=== PATIENT | female | born 1980 | race Caucasian/White ===

== ENCOUNTER 2024-04-07 15:02 | Emergency (ER) | payer BC, SELFPAY ==
[2024-04-07] VITALS (26 sets, daily range): BP systolic 87–121; BP diastolic 52–94; PULSE 97–115; RESP 16; TEMP 37.6–39.6; O2SAT 92–100
--- NOTE | 2024-04-07 15:33 | W.ED.GENAD ---
Discharge Plan Disposition Patient Disposition: Home Condition: Stable Discharge Details Chief Complaint: Abd Prob Clinical Impression: Pneumonia Primary Care Provider: Radha Acuna ED Provider: Lula Jarvis Home Meds and New Rx's Prescriptions: New doxycycline hyclate 100 mg capsule 100 mg PO BID Qty: 14 0RF No Action tamoxifen 20 mg tablet 20 mg PO DAILY cetirizine [Allergy Relief (cetirizine)] 5 mg tablet 5 mg PO ONCE multivitamin [Daily Multi-Vitamin] Tablet 1 tab PO DAILY L.acidophil-L.plantar-Bifido 7 [up4 Probiotics Adult] 1 cap PO DAILY docosahexaenoic acid [Algal [place]-3 DHA] 1 cap PO DAILY Discharge Instructions Instructions: Pneumonia, Adult ED Additional Instructions: Please continue Tylenol up to 1000 mg every 6 hours for fever relief. Follow-up with your PCP as well but return to the Emergency Department immediately with any worsening symptoms or any other concerns. HPI General Date/Time Provider Initiated Documentation: 04/07/24 15:12. HPI Narrative: The patient is a 43-year-old female with prior history of breast cancer, history of appendectomy, section who comes emergency department for fever, abdominal pain. The patient reports that she has been sick for the past 3 days. Admits to temperature as high as 101 degrees by underarm thermometer. Reports has been taking Tylenol [id number] and it does help with the fever but as soon as Tylenol wears off her fever comes back. Reports that her belly hurts all over without radiation. Denies urinary symptoms with this. Denies any nausea or vomiting. Reports her belly hurts more with a cough which is new for her as well but slight and not productive. Denies any chest pain or shortness of breath however. Denies any known sick contacts. Denies any COVID concerns. Reports that she called her primary care doctor's office today and she was encouraged to go to the emergency department for evaluation. Related Data Home Medications ?Medication ?Instructions ?Recorded ?Confirmed L.acidophil-L.plantar-Bifido 7 1 cap PO DAILY 04/07/24 04/07/24 cetirizine 5 mg tablet (Allergy 5 mg PO ONCE 04/07/24 04/07/24 Relief (cetirizine)) docosahexaenoic acid 1 cap PO DAILY 04/07/24 04/07/24 doxycycline hyclate 100 mg capsule 100 mg PO BID #14 caps 04/07/24 multivitamin (Daily Multi-Vitamin 1 tab PO DAILY 04/07/24 04/07/24 tablet) tamoxifen 20 mg tablet 20 mg PO DAILY 04/07/24 04/07/24 Previous Rx's ?Medication ?Instructions ?Recorded doxycycline hyclate 100 mg capsule 100 mg PO BID #14 caps 04/07/24 Allergies Allergy/AdvReac Type Severity Reaction Status Date / Time acetaminophen (From Vicodin) Allergy Intermediate Other (See Verified 04/07/24 15:07 Comment) hydrocodone (From Vicodin) Allergy Intermediate Other (See Verified 04/07/24 15:07 Comment) NSAIDS (Non-Steroidal Allergy Intermediate Other (See Verified 04/07/24 15:07 Anti-Inflamma Comment) General Stated Complaint: Abd Prob BETH: 3 Review of Systems Narrative: Review of systems are negative except as mentioned. Constitutional Constitutional: Reports fever(s) ENT Ears, Nose, Mouth, and Throat: Denies sore throat Cardiovascular Cardiovascular: Denies chest pain and Denies dyspnea Respiratory Respiratory: Reports cough and Denies dyspnea Gastrointestinal Gastrointestinal: Reports abdominal pain, Denies change in stool character and Denies vomiting Genitourinary Genitourinary: Denies dysuria and Denies urinary urgency Musculoskeletal Comments: No flank pain. Exam Const General: no acute distress Orientation: alert, awake and oriented x3 Resp Auscultation: clear to auscultation bilaterally Cardio Rate: regular rate Rhythm: regular rhythm Other: Equal radial pulses. GI Palpation: soft and nontender Auscultation: normal bowel sounds Other: The patient's abdomen is soft with normal bowel sounds and nontender to palpation throughout without rebound tenderness, guarding or rigidity. No CVA tenderness is noted to palpation bilaterally. Course Vital Signs Vital signs: Vital Signs Temperature 37.6 C 04/07/24 15:03 Pulse 111 H 04/07/24 15:03 Respiratory Rate 16 04/07/24 15:03 Blood Pressure 118/82 04/07/24 15:03 Pulse Oximetry 95 04/07/24 15:03 Temperature 37.6 C 04/07/24 15:03 Temperature Source Oral 04/07/24 15:03 Pulse 111 H 04/07/24 15:03 Respiratory Rate 16 04/07/24 15:03 Blood Pressure 118/82 04/07/24 15:03 Blood Pressure Position Sitting 04/07/24 15:03 Pulse Oximetry 100 04/07/24 15:19 Oxygen Delivery Method Room Air 04/07/24 15:19 Oxygen Flow Rate 0 04/07/24 15:03 Pain Level 5 04/07/24 15:03 Lab/Test Results Lab/Test Results: 04/07/24 15:27 Blood Blood Culture - Pending 04/07/24 15: Blood Blood Culture - Pending Medical Decision Making The patient's physical exam is benign and she arrives hemodynamically stable as well in particular afebrile. Nevertheless given history of fever not resolving after Tylenol, history of breast cancer I ordered a septic workup. The patient's blood work is back and it is unremarkable. She has no white count elevation and lactic acid is within normal limits. Urinalysis is negative for infectious process and she tested negative for COVID, flu and RSV. She remains hemodynamically stable here and afebrile. I updated the patient and her over workup result. I asked her about her cough and states that it is a mild cough that she is not worried about but she is more concerned regarding the abdominal pain. She continues to not have any abdominal tenderness on exam however since I do not have a source on workup I did order imaging study of her abdomen and pelvis at this point. The patient returned from CAT scan the patient reports her pain is coming back now with nausea. She requested pain medication. Reports that she gets hives with NSAIDs so I am not able to order this. She does have known listed allergy for hydrocodone which causes her lips as well. Patient reports as far she is concerned no IV pain medication has caused adverse reaction so I ordered IV morphine and Zofran. Vital signs are checked once more and she has a fever now again. Patient reports that she is not yet due for another Tylenol until 7:00. Because she gets hives with NSAIDs I am not able to order this so instead I have ordered a liter of normal saline. CAT scan is finally resulted and she has changes concerning for left lower lobe pneumonia. Incidentally she was found to have left-sided ovarian cyst. I updated the patient and her workup result. The patient continued to not have any localized abdominal pain complaint. Given the finding of pneumonia I will start her on IV antibiotics now. She is still febrile and again I am unable to give her NSAIDs. She will get another dose of Tylenol when appropriate. She is also found to have an ovarian cyst. She has been symptomatic for the past 3 days now. If her pain persist she may need to get further studies including ultrasound which can be done on an outpatient basis. I had a conversation with the patient regarding disposition at this point. Since we do have a source for her fever I am comfortable with her going home with a prescription for more antibiotics for the next few days. Since she is not yet due for Tylenol she will still be febrile. I talked her about waiting around 740 when her next Tylenol dose is due versus going home now knowing that she still has a fever and she would like to wait until 740. She also request another dose of morphine. These have been ordered for her. A prescription for antibiotics in the meantime will be sent to her preferred pharmacy. She is asked to follow-up with her primary care doctor as well but urged to return to the emergency department with any worsening symptoms or any other concerns. Imaging Data Radiologic Study: Imaging: CT Scan (CT abdomen and pelvs) Radiologist's impression: 1. Left lower lobe infiltrate suspicious for pneumonia. 2. Bilateral ovarian cysts and trace amount of free fluid in the pelvis which is likely physiologic. The largest cyst is on the left ovary measures 3.5 x 4.1 cm. 3. No abdominal or pelvic process. Quality:SDOH Health Related Social Needs: No Data to Display [facility] All Active Problems (Updated 04/07/24 @ 19:07 by Lula Jarvis DO) Pneumonia (Acute) Social History Smoking/Tobacco Use Status: Never Smoking risk assessment performed?: Yes Alcohol Intake: current Alcohol Intake frequency: a few times a month Drug use: Never Substance use type: does not use Do you feel safe at home: Yes Do you feel safe in your relationship?: Yes
[2024-04-07 15:35] LABS: Lactate 1.1 mmol/L (0.6-1.4)
[2024-04-07 15:41] LABS: Abs Immature Grans 0.03 10^3/uL (0.0-0.06); Absolute Eosinophil Count 0.01 10^3/uL (0.0-0.7); Absolute Lymphocyte Count 0.86 10^3/uL (1.2-3.4); Absolute Monocyte Count 0.33 10^3/uL (0.1-0.8); Absolute Neutrophil Count 4.46 10^3/uL (1.2-6.7); Eosinophils % 0.2 %; HCT 41.5 % (36.0-46.0); HGB 13.9 g/dL (11.2-15.7); Immature Grans % 0.5 %; Lymphocytes % 15.1 %; MCH 30.8 pg (27.0-33.0); MCHC 33.5 % (32.0-36.0); MCV 92 fL (80-95); Monocytes % 5.8 %; Neutrophils % 78.4 %; Platelet Count 143 10^3/uL (130-400); RBC 4.52 10^6/uL (3.93-5.22); RDW 12.5 % (11.7-14.6); RDW-SD 42.5 fL; WBC 5.69 10^3/uL (4.4-10.8)
[2024-04-07 15:52] LABS: ALT 15 U/L (14-59); AST 22 U/L (15-37); Albumin 3.5 g/dL (3.4-5.0); Alkaline Phosphatase 53 U/L (46-116); Anion Gap 9.6 mmol/L (3-11); BUN 10 mg/dL (7-18); Bilirubin, Total 0.27 mg/dL (0.2-1.0); CO2 26.4 mmol/L (21.0-32.0); CREATININE 0.9 mg/dL (0.55-1.02); Calcium 8.8 mg/dL (8.5-10.1); Chloride 102 mmol/L (98-107); Estimated GFR 82.37 (mL/min/1.73m2); Glucose 106 mg/dL (74-106); Potassium 3.3 mmol/L (3.5-5.1); Sodium 138 mmol/L (136-145); Total Protein 7.5 g/dL (6.4-8.2)
[2024-04-07 15:53] LABS: HCG Qual (Serum) Negative
[2024-04-07 16:14] LABS: Bilirubin Negative (Negative); Blood Negative (Negative); Clarity Clear (Clear); Glucose Negative (Negative); Ketones 15 mg/dL (Negative); Leukocyte Esterase Negative (Negative); Nitrite Negative (Negative); Specific Gravity 1.015 (1.005-1.025); Urobilinogen 0.2 mg/dL (Up to 0.2)
[2024-04-07 16:36] LABS: COVID-19 PCR Negative (Negative); Influenza A PCR Negative (Negative); Influenza B PCR Negative (Negative); RSV PCR Negative (Negative); Source NASOPHARYNX
--- OUTSIDE RECORDS SUMMARY | 2024-04-07 16:37 | XMS_ITS | Encounter Summary ---
Author Organization [facility] [place] [address] Care Team Providers Care Operations And Maintenance Supervisor Name Role Phone Radha Acuna MD Primary Care Provider [phone]- [phone] Encounter Details Date Type Department Care Team (Late st Contact Info) Description 07/10/2022 Orders Only [place] [phone] Shilpi Gallegos MD [facility] [place] [address] Invasive ductal carcinoma of right breast; Malignant neoplasm of upper-outer quadrant of right breast in female, estrogen receptor positive Social History Tobacco Use Types Packs/Day Years Used Date Smoking Tobacco: Never Smokeless Tobacco: Never Alcohol Use Standard Drinks/Week Comments Yes 0 (1 standard drink = 0.6 oz pur e alcohol) occasiona Sex and Gender Information Value Date Recorded Sex Assigned at Female 02/09/2022 12:21 PM EDT Gender Identity Female 02/09/2022 12:21 PM EDT Sexual Orientation Straight 02/09/2022 12 :21 PM EDT documented as of this encounter Plan of Treatment Upcoming Encounters Date Type Department Care Team (Late st Contact Info) Description 06/30/2024 4:30 PM EDT Office Visit [place] [phone] Shilpi Gallegos MD [facility] DR [place] [address] documented as of this encounter Results * (ABNORMAL) Comprehensive metabolic panel (non-fasting) (07/10/2022 2:50 PM EDT) Glucose 87 65 - 199 mg/dL [facility] Comment:Diabetes: >=200 mg/d L plus symptoms Blood Urea Nitrogen 23(H) 8 - 18 mg/dL [facility] Creatinine 0.79 0.70 - 1.20 mg/dL [facility] Sodium 138 135 - 145 mmol/L [facility] Potassium 3.9 3.5 - 5.0 mmol/L [facility] Comment: Please note: ??Patients with WBC >100,000 may have falsely elevated Potassium levels. ??For accurate Potassium quantification in these patients send serum separator tube (gold top) for subsequent determinations. ??Contact the Clinical Chemistry Laboratory if there are any questions. Chloride 103 98 - 107 mmol/L [facility] Carbon Dioxide 24 22 - 31 mmol/L [facility] Anion Gap 11 5 - 15 mmol/L [facility] Calcium 9.0 8.5 - 10.5 mg/dL [facility] Protein, Total 7.0 6.1 - 8.0 g/dL [facility] Albumin 4.6 3.2 - 5.2 g/dL [facility] Aspartate Aminotransferase 27 0 - 30 unit/L [facility] Alanine Aminotransferase 16 0 - 30 unit/L [facility] Alkaline Phosphatase 61 35 - 105 unit/L [facility] Bilirubin, Total 0.2 0.2 - 1.3 mg/dL [facility] Est Glomerular Filtration Rate 97 >=60 mL/min/1. 73 m?? [facility] Comment: This patient's estimated GFR was calculated using the 2020 CKD-EPI equation. The estimated GFR can vary from the measured GFR by up to 30% in the absence of rapidly changing kidney function. Assessment of the estimated GFR is not appropriate when creatinine concentrations are rapidly changing. For clinical situations in which a more precise estimate of GFR is necessary, consider alternative methods of GFR estimation such as a 24-hour urine creatinine clearance. Assignment of CKD stage 1-5 for patients with an eGFR near the transition point between stages may be based on clinical assessment of muscle mass and symptoms in addition to eGFR. Blood 07/10/2022 2:50 PM EDT 07/10/2022 2:54 PM EDT Narrative Resulting Agency Comment Spec In Lab Shilpi Gallegos MD CHEMISTRY ORDERABLE S [facility] [place] [address] * Lipid Panel (Reflex Direct LDL) (07/10/2022 2:50 PM EDT) Cholesterol, Total 167 mg/dL [facility] Comment: Lower Risk: <200 mg/dL Average Risk: 200-239 mg/dL Higher Risk: >be=819 mg/dL Triglyceride 45 mg/dL [facility] Comment: Average Risk/Lower Risk: <150 mg/dL Borderline High Risk: 150-199 mg/dL High Risk: 200-499 mg/dL Very High Risk: >vg=417 mg/dL HDL Cholesterol 90 mg/dL [facility] Comment: Males: ?? Higher Risk: <40 mg/dL Females: ?? Higher Risk: <50 mg/dL LDL Cholesterol 68 mg/dL [facility] Comment: Lowest Risk: <100 mg/dL Lower Risk: 100-129 mg/dL Borderline High Risk: 130-159 mg/dL High Risk: 160-189 mg/dL Very High Risk: >oj=142 mg/dL Cholesterol/HDL Ratio 1.9 ratio [facility] Lipid Interpretation See Note [facility] Comment: Lipid management should be guided by a patient? s ASCVD risk, goals and preferences. ACC/AHA Guidelines recommend high intensity statin if clinical ASCVD or LDL greater than or equal to 190 mg/dL. http://tinyurl.com/ZQT-ZJO-Ptjpaqxgc Adults aged 40-75 with LDL 70-189 mg/dL should have their 10 year ASCVD risk estimated with the ACC/AHA ASCVD risk nail maker http://tools.acc.org/HESSE-Jhbu-Iqcidtmmi/ Statin should be discussed if risk greater than or equal to 7.5% in non-diabetics. With diabetes, moderate intensity statin is recommended if risk less than 7.5%, high intensity if risk greater than or equal to 7.5%. Annual lipid monitoring on statins is not necessary. Evaluate secondary causes of Triglycerides greater than 500 mg/dL or LDL greater than 190 mg/dL: See table 6 of ACC/AHA Guideline. Lifestyle modification is a critical component of ASCVD risk reduction. Blood 07/10/2022 2:50 PM EDT 07/10/2022 2:54 PM EDT Narrative Resulting Agency Comment Spec In Lab Shilpi Gallegos MD CHEMISTRY ORDERABLE S Performing Organization Address City/[facility]/ZIP Co de Phone Number [facility] [place] [address] * Vitamin D, 25-Hydroxy (07/10/2022 2:50 PM EDT) Vitamin D Total 25 OH 71 21 - 100 ng/mL [facility] Vit D Interp Sufficient [facility] Blood 07/10/2022 2:50 PM EDT 07/10/2022 2:54 PM EDT Narrative Resulting Agency Comment Spec In Lab Shilpi Gallegos MD CHEMISTRY ORDERABLE S Performing Organization Address City/[facility] Co de Phone Number [facility] [place] [address] documented in this encounter Visit Diagnoses Diagnosis Invasive ductal carcinoma of right breast Malignant neoplasm of upper-outer quadrant of right breast in female, estrogen receptor positive documented in this encounter Care Teams Operations And Maintenance Supervisor Relationship Specialty Start Date End Date Radha Acuna MD [address] [place] [address] [place] [address] PCP - General 08/07/11 documented as of this encounter
--- OUTSIDE RECORDS SUMMARY | 2024-04-07 16:37 | XMS_ITS | Encounter Summary ---
Author Organization [facility] [place] [address] Care Team Providers Care It Admin Name Role Phone Radha Acuna MD Primary Care Provider +1- [phone] Encounter Details Date Type Department Care Team (Latest Contact Info) Description 03/27/2024 Travel Social History Tobacco Use Types Packs/Day Years [...] EDT Office Visit Hematology [place] [address] Shilpi Gallegos MD [facility] HEMATOLOGY [place] [address] documented as of this encounter Visit Diagnoses Not on filedocumented in this encounter Care Teams It Admin Relationship Specialty Start Date End Date Radha Acuna MD [address] [place] [address] DR [address] [id number] PCP - General 08/07/11 documented as of this encounter
--- OUTSIDE RECORDS SUMMARY | 2024-04-07 16:37 | XMS_ITS | Encounter Summary ---
Author Organization [facility] [place] [address] Care Team Providers Care Wood Lathe Operator Name Role Phone Radha Acuna MD Primary Care Provider +1- [phone] Encounter Details Date Type Department Care Team (Latest Contact Info) Description 06/23/2023 Travel Social History Tobacco Use Types Packs/Day [...] EDT Office Visit Hematology [place] [address] Shilpi Gallegos MD [facility] HEMATOLOGY [place] [address] documented as of this encounter Visit Diagnoses Not on filedocumented in this encounter Care Teams Wood Lathe Operator Relationship Specialty Start Date End Date Radha Acuna MD [address] [place] [address] DR [address]IOR [place] [id number] PCP - General 08/07/11 documented as of this encounter
--- OUTSIDE RECORDS SUMMARY | 2024-04-07 16:37 | XMS_ITS | Encounter Summary ---
Author Organization [facility] Address [facility] [place] [address] Care Team Providers Care Polymer Engineer Name Role Phone Radha Acuna MD Primary Care Provider [phone] Reason for Visit * Consultation (Priority 3) - Authorized Specialty Diagnoses / Procedures Referred By Clara cisneros Referred To Contact Dermatology Diagnoses Nonscarring hair loss, unspecified THINNING HAIR, H/O BREAST CANCER ON TAMOXIFEN Liban Humphrey MD [address] [place] [address] [place] [address] [facility] Dermatology [address] [place] [address] Referral ID Status Reason Start Date Expiration Date Visits Requested Visits Authorized [id number] Authorized Consult, Test & Treat PCP Updated and/or Approved 11/30/2023 11/29/2024 6 6 Encounter Details Date Type Department Care Team (Late st Contact Info) Description 03/27/2024 3:40 PM EST Office Visit Dermatology at [facility] [address] [place] [address] Larry Fernando MD [facility] [place] [address] Telogen effluvium; Hair loss; Seborrheic keratoses, inflamed Social History Tobacco Use Types Packs/Day Years [...] PM EDT documented as of this encounter Progress Notes * Larry Fernando MD - 03/27/2024 3:40 PM EST Images from the original note were not included. DEPARTMENT OF DERMATOLOGY Medical Dermatology Clinic Note Provider: Larry Fernando MD Patient's preferred name Trina Preferred contact method for results [x]Phone []myD-H []Letter Detailed phone message OK? Yes Are there any other people with whom we may discuss your care? 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 Patient is referred to the clinic at the request of Liban Humphrey for hair loss. Patient reports the following: - Patient reports diffuse thinning of the hair, patient was on chemotherapy for treatment of breastcancer in 2018, hair thinning has been present for ~1 year. Patient is still currently on tamoxifen, patient denies any significant stressors in the prior 6-12 months. - Irritated lesion on the upper back. Review of Systems: General: Feeling well. Skin: No other skin concerns. Medications: Reviewed in eD-H Allergies: Reviewed in eD-H Skin Examination: Focused skin examination of the scalp was normal with the exception of the findings below. Assessment/Plan #. Favor Telogen Effluvium vs. Medication adverse reaction- Increased shedding of hairs however no obvious patches of alopecia or scarring on exam. 1 strand per 10 hairs on pull test, equivocal result. Good hair density, no miniaturization of follicles - Discussed common side effect of tamoxifen as hair loss ~ 1/10 people or so will experience symptoms. Symptoms usually temporary but unfortunately likely to last until treatment ends - Discussed other possibility of chronic telogen effluvium. Advised patient if diagnosis is telogeneffluvium hair loss will improve with time and hair loss is not permanent - Commonly telogen effluvium due to stress such as recent family tragedy, divorce, or medical illness such as covid (which patient denies history of) - Also discussed reversible causes of hair loss such as thyroid abnormality, iron deficiency, drugsincluding: OCPs, retinoids, anti-thyroid, anticonvulsants, interferon-a and beta blockers - Fortunately today exam reassuring, discussed good hair density, no scarring, no conor alopecia. Treatment and intervention optional at this point - Reviewed minoxidil oral in detail with patient including side effects, she will wait for results of lab testing and consider medication in future Plan: - Labs today: TSH cascade, Ferritin, Iron & TIBC. - Discussed with patient starting oral minoxidil 1.25mg daily, patient will further consider starting oral minoxidil pending lab results. #. Inflamed Seborrheic Keratoses - Inflamed, stuck on, waxy papules on the back x2. - Discussed benign nature of lesion(s) and provided reassurance. - Due to irritation present on today's exam and history of symptoms, discussed removal with cryotherapy. - Patient elects to proceed with cryotherapy today. Procedure: Destruction of lesion(s) with cryotherapy (LN2). Location(s): As noted above Number: 2 Discussed procedure and expectations including risks and benefits. Verbal consent obtained. Treatedwith LN2. There were no complications; Patient tolerated the procedure well. Post-procedure expectations and wound care were reviewed. Other: N/A RTC: 6 months for hair loss follow up []Note routed to area secretary [x]Recall placed in scheduling system []Appointment scheduled at checkout Scribe attestation: Schuyler Couch has performed the documentation for this encounter in the presence of and acting as a scribe for Larry Fernando MD. I performed the above scribed service and agree with the accuracy of the documentation in this encounter. Reviewed and signed by: Larry Fernando MD D[facility] Discussed with staff railroad switchman: Bud Mario MD Department of Dermatology [facility] * Bud Mario MD - 03/27/2024 3:40 PM EST I directly supervised Larry Fernando MD in the care of this Dermatology patient in person. I saw and evaluated this patient with Larry Fernando MD. Larry Fernando MD presented the history and physical exam details to me, then we saw the patient together, and I confirmed these findings. I agree with details as written. My physical examination confirms Larry Fernando MD's findings. The assessment and plan were formulated in discussion with me at the time of visit, and I agree with them as documented. Bud Mario MD Staff C 13 Catapult Operator Department of Dermatology [facility] documented in this encounter Plan of Treatment Upcoming Encounters Date Type Department Care Team (Late st Contact Info) Description 06/30/2024 4:30 PM EDT Office Visit [place]ology [place] [address] Shilpi Gallegos MD [facility] [address] [place] [address] Scheduled Orders Name Type Priority Associated Diagnoses Orde r Schedule Iron and TIBC Lab Routine Hair loss Expected: 03/27/2024, Expires: 04/27/2024 Ferritin Lab Routine Hair loss Expected: 03/27/2024, Expires: 04/27/2024 TSH [place] [facility] Routine Hair loss Expected: 03/27/2024, Expires: 04/27/2024 documented as of this encounter Visit Diagnoses Diagnosis Telogen effluvium Hair loss Alopecia, unspecified Seborrheic keratoses, inflamed documented in this encounter Care Teams Polymer Engineer Relationship Specialty Start Date End Date Radha Acuna MD [address] [place] [address] [place] [address] PCP - General 08/07/11 documented as of this encounter
--- OUTSIDE RECORDS SUMMARY | 2024-04-07 16:37 | XMS_ITS | Clinical Summary ---
Author Organization [facility] Address [address] [facility] [place] [address] Care Team Providers Care Cardiology Physician Name Role Phone Radha Acuna MD Primary Care Provider [phone]- [phone] Allergies Active Allergy Reactions Criticality Noted Date Comments Aspirin Hives High Hydrocodone-Acetaminophen Hives High Transparent Dressings Dermatitis High 03/15/2017 Use mepilex Pt states tegaderm is OK for short periods of time. Tioconazole Not a true allergy per tpt Medications Medication Sig Dispensed Refills Start Date End Date Status multivitamin (THERAGRAN) TabletIndications:has 500mg of calcium and 1600iu of Vit D Take 1 tablet by mouth daily. Indications: has 500mg of calcium and 1600iu of Vit D Active LACTOBACILLUS ACIDOPHILUS (PROBIOTIC ORAL) Take by mouth daily. Active acetaminophen (TYLENOL) 500 mg Tablet Take 2 tablets by mouth every 8 hours. 30 tablet 03/16/2017 Active cetirizine (ZyrTEC) 10 mg Tablet Take 1 tablet by mouth 2 times daily. 180 tablet 3 06/06/2019 Active famotidine (Pepcid) 20 mg Tablet Take 1 tablet by mouth 2 times daily. 60 tablet 11 06/06/2019 Active fluconazole (Diflucan) 150 mg tablet TAKE ONE TABLET BY MOUTH EVERY 72 HOURS 05/28/2022 Active triamcinolone (Kenalog) 0.1 % Cream Apply twice daily to rash area on nape of neck until clears. 15 g 1 07/23/2022 Active tamoxifen (Nolvadex) 20 mg tablet TAKE ONE TABLET (20 MG) BY MOUTH EVERY DAY 90 tablet 3 07/02/2023 Active Active Problems Problem Noted Date Diagnosed Date S/P breast reconstruction 09/20/2017 Breast swelling 04/28/2017 Surgery follow-up 03/31/2017 Chronic midline thoracic back pain 03/31/2017 Overview (03/31/2017): Started during chemotherapy, intermittent mid-scapular pain causing SOB. This resolved after completion of chemotherapy but after surgery pt notes difficulty lying flat due to pain in the same location. Unable to sleep as she usually sleeps with her left arm up and over her head which she is unable to do. Feels best when sitting up. Breast CA 03/15/2017 Medication management 01/26/2017 Change in bowel habits 12/08/2016 Invasive ductal carcinoma of right breast 2016 Overview (11/03/2017): Clinical Right breast cancer, overlapping sites, clinical [id number] ER/IN + HER2 + ratio 10.0 Right breast axillary ultrasound biopsy negative PET scan negative ? Superior cervical node abnormality, biopsy 10/02/16 benign. BRCA panel testing negative for germline mutations. Trina Frances is a 36 y.o. woman who presents with newly diagnosed right breast cancer. In 07/2016, she noted a tender right breast lump without skin changes or nipple discharge. 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 On 09/11/16, she underwent a mammogram followed by ultrasound showing 2 right breast masses and right axilla node 1.2cm. Biopsy showed invasive ductal carcinoma, grade 2 with DCIS. HER2+ (FISH HER2:CEP-17 = 10), ER+/IN+ (11-90%). A right axilla node biopsy was negative. ?? On 09/17/16, a bilateral breast MRI showed the left breast was normal. The right, upper, inner, breast had 2 identifiable masses, 1cm and 1.3cm without chest wall invasion. However there were both enhancing and non-enhancing masses and the total extent of the disease spanned 7cm. No axillary nodes were seen. Labs with a CBC and CMP were normal. She saw Dr. Negro from surgical oncology who recommended a mastectomy after neoadjuvant chemotherapy. Neoadjuvant regimen: TCH-P x 6 cycles Cycle 1-6 TCH-P 6/26/17 - 01/29/17 Surgery delayed due to persistent grade 3 thrombocytopenia, no transfusions required. Surgery 03/15/17, bilateral mastectomies with reconstruction, with near complete response to NAC. 0/8 lymph nodes without evidence of treatment effect; Tumor bed approx 1.5 cm with complete response except for focal residual micro-invasive IDCA. Focal DCIS high grade, no LVI. [id number] 09/11/16- MAMMO BREAST US LIMITED BILATERAL, MAMMO 2D DIGITAL BILATERAL DIAGNOSTIC WITH CAD. FINDINGS: The breasts are heterogeneously dense, which may obscure small masses. There are spiculated masses and pleomorphic microcalcifications identified in the right upper inner quadrant extending to the nipple anteriorly and suspected towards the chest wall posteriorly crossing the midline toward the 11:00 radian and extending just below the central axis on the MLO view. The lesion spans 7.5 cm in diameter. The palpable lumps correspond to 2 of the larger components of soft tissue density, measuring 1.2 cm at the 2:00 radian and 1.3 cm at the 3:00 radian. The left breast is unremarkable. Bilateral breast ultrasound: I performed high-resolution ultrasound followingthe technologist. In the right breast there are highly suspicious masses. Sonographically the 2 dominant masses are located at the 2:00 radian 2 cm from the nipple and 3:00 radian 4 cm from the nipple. No sonographic abnormality is seen in the left breast. In the right axilla there is a cortical excrescence of 1 of the axillary lymph nodes. The lymph node measures 1.2 cm in diameter. The cortex is thickened to 0.3 cm. IMPRESSION. Extensive disease in the right breast involving the 11 through 3:00 radii and extending from the posterior aspect potentially involving the chest wall, anteriorly to the nipple. Possible right axillary adenopathy. Left breast without evidence of disease. 09/11/16- RIGHT BREAST ULTRASOUND GUIDED AUTOMATED CORE BIOPSY x2, lesion #1 is a suspicious mass at the 3:00 radian 2 cm from the nipple. A - ??Needle biopsies: ??Right breast lesion 1 Diagnosis: ?Invasive ductal carcinoma, intermediate grade. Ductal carcinoma in-situ, high grade with comedo necrosis. ER immunoreactivity: ??Positive 11-90% cancer cells with immunostaining, Stain Intensity Moderate. IN immunoreactivity: ??Positive 11-90% cancer cells with immunostaining, Stain Intensity Moderate to focal Strong. [id number] FISH is amplified. B - ??Needle biopsies: ??Right axillary node ultrasound biopsy. Diagnosis: Benign node fragments. 09/17/16- BILATERAL BREAST MRI. LEFT Breast: Confluent tissue is noted in the in the left upper outer quadrant with uninterrupted ductal structures, favoring physiologic variation/fibrocystic change. RIGHT Breast:There are enhancing masses and nonmass enhancement extending from 1:00 radian superiorly through the 3:00 radian inferiorly. There are 2 dominant components, the relative more inferior of which was sampled and confirmed to represent malignancy. The sampled lesion, lesion #1, measures 1 cm and the dominant mass in the right breast 2:00 (lesion #2) radian measures 1.3 cm. The extent of disease is more sensitively depicted in the mammogram which depicts calcifications extending to the nipple. The superior to inferior extent of disease is 7 cm. Ductal carcinoma in situ component is not well depicted at MRI. However, the MRI does exclude any evidence of chest wall invasion. :Specific features of the biopsied right breast lesion(s) is/are as follows: RIGHT BREAST LESION 1: 1 cm Mass. Right medial breast 3 O'Clock 3 cm from the nipple by MRI. Mass Shape: Round Margins: Not circumscribed - Spiculated Enhancement: Homogenous Delayed phase: Plateau. Non mass enhancement: Distribution: Segmental Enhancement: Initial upslope: Slow. Delayed phase: Progressive. Lymph Node Basins/Other: There is no evidence of internal mammary or axillary adenopathy. Specifically the lymph node basin of the right axilla has been surveyed by ultrasound with core biopsy sampling of one of the dominant axillary lymph nodes yielding no evidence of malignancy. No significant abnormalities are seen in the chest wall or skin. IMPRESSION MRI demonstrates extensive disease spanning 7 cm superior to inferior limited to the right breast upper inner quadrant without evidence of chest wall invasion. The anterior to posterior disease is best depicted mammographically. No evidence of axillary adenopathy. 09/22/16- MAMMO ULTRASOUND OF THE NECK. FINDINGS: There is an oval homogeneously hypoechoic circumscribed solid mass demonstrating internal vascularity at the superior posterior cervical region measuring 1.6 cm in maximal diameter. The cortex measures 0.2 cm in thickness without cortical excrescence. IMPRESSION Probable lymph node at base of skull/superior cervical region. This has been referred to interventional radiology for consideration of biopsy. 09/29/16- PET-CT STANDARD SKULL BASE TO MID-THIGH. HEAD/NECK: Normal variant brown fat activity in the bilateral supraclavicular regions. CT visualized partially imaged air-fluid level is noted in a hypoplastic appearing left maxillary sinus. CHEST: Two hypermetabolic lesions in the medial right breast corresponds to patient's known diagnosis of invasive ductal carcinoma. There is a hypermetabolic approximately 6 x 3 mm right axillary lymph node (axial images 35, 36), adjacent to a surgical clip. Additional nonpathologically enlarged less intensely hypermetabolic right axillary lymph nodes are noted. Foci of activity seen in the left axilla corresponds to normal variant brown fat. Additional small hypermetabolic focus seen in the left axilla seen on axial images 42-43, better appreciated on the coronal images, appears to correspond to a small subcentimeter lymph node on CT. Normal activity in all remaining soft tissue regions. A left-sided Mediport with tip terminating in the right atrium. ABDOMEN/PELVIS: Hypermetabolic 5 mm in short axis distal right external iliac lymph node (axial images 168-169). Activity seen within the endometrium is likely physiologic. Focus of activity in the posterior right hemipelvis (axial image 164) may represent functioning ovarian tissue. Incidental CT visualized findings: punctate nonobstructing right renal calculus and suture material along the cecum consistent with history of prior appendectomy. SKELETON/EXTREMITIES: Normal marrow activity in all regions of the axial and visualized appendicular skeleton. Indeterminate CT visualized tiny sclerotic foci in the left femoral head and posterior left acetabulum. IMPRESSION 1. Two FDG avid medial right breast lesions, corresponding to patient's known breast carcinoma. 2. Small hypermetabolic right axillary lymph nodes, left axillary lymph node, and distal right external iliac lymph node, indeterminate for reactive versus jose enrique metastases. 3. Hypermetabolic activity in the right hemipelvis, may represent functioning ovarian tissue. Anatomic evaluation is limited on these noncontrast-enhanced CT images. For complete evaluation, pelvic ultrasound is recommended. 4. Indeterminate CT visualized tiny sclerotic foci in the left femoral head and posterior left acetabulum, likely below the sensitivity of PET. 10/02/16- IR BIOPSY of right cervical neck lymph node. DIAGNOSIS Negative for Malignancy 10/27/16- Normal transvaginal pelvic sonogram. Specifically, normal right ovary. 10/05/16 - 01/29/17- Cycle 1-6 TCH-P 03/15/17- DIAGNOSIS. Left breast, skin and nipple-sparing mastectomy: Benign breast tissue. Right Skin-sparing mastectomy: Invasive ductal carcinoma, Only microinvasion present (not graded). DCIS is present, Lymph-Vascular Invasion Not identified, Margins uninvolved by invasive carcinoma (closest is to Treated DCIS, 3 mm) Lymph Nodes ?[place] Lymph Nodes: ?? [place] lymph node biopsy performed ?Number of [place] Nodes Examined: ?8 ?Lymph Node Involvement: ?? None identified In summary, Trina Frances is a 36 yo woman with right breast IDC, ER/IN+, [id number] Initial imaging suggested a disease process spanning ~7cm (though MRI and PET scan shows 2 discrete lesions measuring ~13mm and 1 cm). She was treated with neoadjuvant chemotherapy followed by mastectomy with residual microinvastion and 0 of 8 LNs involved. 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 Resolved Problems Problem Noted Date Diagnosed Date Resolved Date Drug-induced hypokalemia 12/08/2016 Thrombocytopenia due to drugs 12/08/2016 04/28/2017 Drug-induced anemia 11/27/2016 04/28/19 18 Encounters Date Type Department Care Team Description 03/27/2024 3:40 PM EST Office Visit Dermatology at [address] [place] [id number] Larry Fernando MD Telogen effluvium; Hair loss; Seborrheic keratoses, inflamed 03/27/2024 Travel 01/31/2024 Travel from Last 3 Months Immunizations Name Administration Dates Next Due Covid-19 Monovalent (Pfizer Comirnaty ken cap) 12yrs+ (5499-1875) 07/14/2021 Covid-19 Monovalent (Pfizer Comirnaty purple cap) 12yrs+ (3700-4309) 03/11/2021 Influenza PF, Split 01/18/2012 Influenza Quadrivalent, Preservative Free 2022,02/10/2022 Influenza Trivalent w/Preservative 01/21/2014 Influenza Trivalent, Preservative Free ,02/11/2016,01/21/2013 Influenza Vaccine, Whole 08/07/2011 Family History Medical History Relation Comments Myocardial Infarction Father sudden shama th Lymphoma Maternal Aunt Myocardial Infarction Paternal Grandfather Autoimmune Disorder Sister vitiligo Breast Cancer Neg Hx Ovarian Cancer Neg Hx Relation Status Comments Father Maternal Aunt Paternal Grandfather Sister Social History Tobacco Use Types Packs/Day Years Used Date Smoking Tobacco: Never Smokeless Tobacco: Never Alcohol Use Standard Drinks/Week Comments Yes 0 (1 standard drink = 0.6 oz pur e alcohol) occasiona Sex and Gender Information Value Date Recorded Sex Assigned at Female 02/09/2022 12:21 PM EDT Gender Identity Female 02/09/2022 12:21 PM EDT Sexual Orientation Straight 02/09/2022 12 :21 PM EDT Last Filed Vital Signs Vital Sign Reading Time Taken Comments Blood Pressure 109/81 06/23/2023 4:10 PM EDT Pulse 72 06/23/2023 4:10 PM EDT Temperature 36.3 ??C (97.3 ??F) 06/23/2023 4:10 PM ED T Respiratory Rate 16 06/23/2023 4:10 PM EDT Oxygen Saturation 97% 06/23/2023 4:10 PM EDT Inhaled Oxygen Concentration - - Weight 50.6 kg (111 lb 8.8 oz) 06/23/2023 4:10 P M EDT Height 155.2 cm (5' 1.1) 06/23/2023 4:10 PM EDT Body Mass Index 21.01 06/23/2023 4:10 PM EDT Plan of Treatment Upcoming Encounters Date Type Department Care Team (Late st Contact Info) Description 06/30/2024 4:30 PM EDT Office Visit [place] [phone] Shilpi Gallegos MD [facility] HEMATOLOGY [place] [address] Health Maintenance Due Date Last Done Comments HIV screen 2000 Hepatitis C Screening 2000 Hepatitis B vaccine (0-59 yrs) (1) 2001 Pneumococcal Vaccine: At-Ris k 5-64yrs (1 of 2 - PCV) 2001 Tetanus/Diphtheria/Pertussis Vaccines (1 - Tdap) 2001 HPV test 2012 PAP Smear 2012 Breast Cancer Share Decision Needed 2022 Breast Cancer screening 2022 09/11/2016 Covid-19 Vaccine (3 - 2023-2 5 season) 2023 07/14/2021, 03/11/2021 Influenza (Flu) vaccine Completed 01/31/20 24, 02/11/2023, 02/10/2022, Additional history exists Medical Devices Implanted Type Area Launch Commander [employer] Device Identifier Shelf Expiration Date Model / Serial / Lot Breast Clip-09/11/2016 Implanted:Qty: 1 on 09/11/2016 by Odessa Park MD Breast Clip Breast [id number] / [id number] / Description:SENOMARK ULTRACO R ULTRASOUND ENHANCED SCOOBY Breast Clip-09/11/2016 Implanted:Qty: 1 on 09/11/2016 by Odessa Park MD Breast Clip Axilla [id number] / [id number] / Description:SENOMARK ULTRACO R ULTRASOUND ENHANCED COIL Sizer,Rnd,Mdrt ,+,Prfl,275-33 0c ([id number]) (Autoreq) - [id number] Implanted:Qty: 1 on 03/15/2017 by Ruby Negro MD at [facility] IMPLANTS DO NOT USE eSoft - [id number] 06/01/2020 [id number] / / [id number] Expan,Tiss,Art oura,300cc ([id number]) (Autoreq) - [id number] Implanted:Qty: 1 on 03/15/2017 by Ruby Negro MD at [facility] IMPLANTS DO NOT USE eSoft - [id number] 01/23/2020 [id number] / [id number] / [id number] Graft,Allomax, 4x16cm,1mmthk ([id number]) (Autoreq) - [id number] Implanted:Qty: 1 on 03/15/2017 by Ruby Negro MD at [facility] IMPLANTS [employer] - 1825 04/15/2021 [id number] / [id number] / [id number] Graft,Allomax, 4x16cm,1mmthk ([id number]) (Autoreq) - [id number] Implanted:Qty: 1 on 03/15/2017 by Ruby Negro MD at [facility] IMPLANTS [employer] - 1825 04/15/2021 [id number] / [id number] / [id number] Expan,Tiss,Art oura,300cc ([id number]) (Autoreq) - [id number] Implanted:Qty: 1 on 03/15/2017 by Frantz Zurita MD at [facility] IMPLANTS DO NOT USE [employer] - 4371 01/23/2020 [id number] / [id number] / [id number] Mamma,Smth,Rnd ,Mdrt,+,275cc ([id number]) (Autoreq) - [id number] Implanted:Qty: 1 on 06/09/2017 by Frantz Zurita MD at [facility] IMPLANTS Left: Breast DO NOT USE [employer] - [id number] 03/18/2021 [id number] / [id number] / Mamma,Smth,Rnd ,Mdrt,+,275cc ([id number]) (Autoreq) - [id number] Implanted:Qty: 1 on 06/09/2017 by Frantz Zurita MD at [facility] IMPLANTS Right: Breast DO NOT USE [employer] - [id number] 09/24/2021 [id number] C / [id number] / Explanted Type Area Launch Commander [employer] Device Identifier Shelf Expiration Date Model / Serial / Lot Sizer,Rnd,Mdr t,+,Prfl,275- 330c ([id number]) (Autoreq) - [id number] Explanted:Qty : 1 on 06/09/2017 by Frantz Zurita MD at [facility] IMPLANTS Right: Breast DO NOT USE [employer] - [id number] 03/09/2020 [id number] / N/A / [id number] Sizer,Rnd,Mdr t,+,Prfl,275- 330c ([id number]) (Autoreq) - [id number] Explanted:Qty : 1 on 06/09/2017 by Frantz Zurita MD at [facility] IMPLANTS Left: Breast DO NOT USE eSoft - [id number] 02/17/2020 [id number] / N/A / [id number] Port,Ct,Low Profile,Vacce ss ([id number])-09/11 Implanted:Qty : 1 on 09/29/2016 by Coleman Posada DO Explanted:Qty : 1 on 12/16/2017 by Micki Griffith APRN IMPLANTS Left: Chest Wall [employer] - 0612 07/10/2018 [id number] / [id number] / [id number] Procedures Procedure Name Priority Date/Time Associated Diagnosis Comments MAMMO DIAGNOSTIC CAD BILATERAL Routine 09/11/2016 10:35 AM EDT Breast lump from Last 3 Months or Most Recently Relevant to Health Maintenance Results * Mammo Diagnostic CAD Bilat (09/11/2016 10:35 AM EDT) Anatomical Region Laterality Modality Breast Bilateral Mammography Impressions 09/11/2016 2:06 PM EDT Extensive disease in the right breast involving the 11 through 3:00 radii and extending from the posterior aspect potentially involving the chest wall, anteriorly to the nipple. Possible right axillary adenopathy. Left breast without evidence of disease. Recommendation: Recommend ultrasound-guided core biopsy of one of the palpable masses in the right breast (right breast lesion #1, 3:00 radian) and ultrasound-guided core biopsy of the abnormal right axillary lymph node. This is performed and dictated separately. Right breast lesion #1: BI-RADS Category 5: Highly Suggestive of Malignancy - Appropriate Action Should Be Taken Right axilla BI-RADS Category 4: Suspicious Finding - Biopsy Should Be Considered Left breast BI-RADS Category 1: Negative Narrative 09/11/2016 2:06 PM EDT EXAMINATION: MAMMO BREAST US LIMITED BILATERAL, MAMMO 2D DIGITAL BILATERAL DIAGNOSTIC WITH CAD CLINICAL HISTORY: Bi-lat breast lumps. Patient felt a lump at the 2:00 radian of the right breast and referring physician feels a lump at the 4-5 o'clock radian of the right breast and left breast 2:00 radian. TECHNIQUE: 2-D direct digital capture, 3-D tomosynthesis and computer aided detection (CAD) were used. COMPARISON: None FINDINGS: The breasts are heterogeneously dense, which may obscure small masses. There are spiculated masses and pleomorphic microcalcifications identified in the right upper inner quadrant extending to the nipple anteriorly and suspected towards the chest wall posteriorly crossing the midline toward the 11:00 radian and extending just below the central axis on the MLO view. The lesion spans 7.5 cm in diameter. The palpable lumps correspond to 2 of the larger components of soft tissue density, measuring 1.2 cm at the 2:00 radian and 1.3 cm at the 3:00 radian. The left breast is unremarkable. Bilateral breast ultrasound: I performed high-resolution ultrasound following the technologist. In the right breast there are highly suspicious masses. Sonographically the 2 dominant masses are located at the 2:00 radian 2 cm from the nipple and 3:00 radian 4 cm from the nipple. No sonographic abnormality is seen in the left breast. In the right axilla there is a cortical excrescence of 1 of the axillary lymph nodes. The lymph node measures 1.2 cm in diameter. The cortex is thickened to 0.3 cm. Mandie Gonzalez APRN IMG MAMMO ORDERA BLES from Last 3 Months or Most Recently Relevant to Health Maintenance Advance Directives * Full Code (Latest Code Status on File) Date Activated Date Inactivated Comments 12/16/2017 1:19 PM 12/17/2017 4:37 AM Question Answer Comments Does patient have capacity to make decision: Yes * Full Code Date Activated Date Inactivated Comments 03/15/2017 12:41 PM 03/16/2017 3:01 PM Question Answer Comments Does patient have capacity to make decision: Yes * Full Code Date Activated Date Inactivated Comments 03/15/2017 8:00 AM 03/15/2017 12:41 PM Question Answer Comments Does patient have capacity to make decision: Yes * Full Code Date Activated Date Inactivated Comments 10/02/2016 3:10 PM 10/03/2016 4:35 AM Question Answer Comments Does patient have capacity to make decision: Yes * Full Code Date Activated Date Inactivated Comments 09/29/2016 8:29 AM 09/30/2016 4:35 AM Question Answer Comments Does patient have capacity to make decision: Yes Care Teams Cardiology Physician Relationship Specialty Start Date End Date Radha Acuna MD [address] [place] [address] [place] [address] PCP - General 08/07/11
--- OUTSIDE RECORDS SUMMARY | 2024-04-07 16:37 | XMS_ITS | Encounter Summary ---
Author Organization [facility] Address [address] [address] Care Team Providers Care Lens Shaper Grinder Name Role Phone Radha Acuna MD Primary Care Provider [phone]- [phone] Reason for Referral * Consultation (Priority 3) - Authorized Specialty Diagnoses / Procedures Referred By Clara cisneros Referred To Contact Dermatology Diagnoses Nonscarring hair loss, unspecified THINNING HAIR, H/O BREAST CANCER ON TAMOXIFEN Liban Humphrey MD [address] [place] [address] [place] [address] [facility] Dermatology [address] [place] [address] Referral ID Status Reason Start Date Expiration Date Visits Requested Visits Authorized [id number] Authorized Consult, Test & Treat PCP Updated and/or Approved 11/30/2023 11/29/2024 6 6 Encounter Details Date Type Department Care Team (Latest Contact Info) Description 12/17/2023 Transcribe Orders eDH Incoming Referrals [phone] Liban Humphrey MD [address] [place] [address] [place] [address] Nonscarring hair loss, unspecified Social History Tobacco Use Types Packs/Day Years [...] EDT Office Visit Hematology [place] [address] Shilpi Gallegos MD [facility] [address] HEMATOLOGY [place] [address] Scheduled Referrals Name Type Priority Associated Diagnoses Orde r Schedule Referral to Dermatology Outpatient Referral Routine Nonscarring hair loss, unspecified Ordered: 12/17/2023 documented as of this encounter Visit Diagnoses Diagnosis Nonscarring hair loss, unspecified documented in this encounter Care Teams Lens Shaper Grinder Relationship Specialty Start Date End Date Radha Acuna MD [address] [place] [address] [place] [address] PCP - General 08/07/11 documented as of this encounter
--- OUTSIDE RECORDS SUMMARY | 2024-04-07 16:37 | XMS_ITS | Encounter Summary ---
Author Organization [facility] [place] [address] Care Team Providers Care Ui Developer Name Role Phone Radha Acuna MD Primary Care Provider +1- [phone] Encounter Details Date Type Department Care Team (Latest Contact Info) Description 07/15/2023 Travel Social History Tobacco Use Types Packs/Day [...] EDT Office Visit Hematology [place] [address] Shilpi Gallegos MD [facility] HEMATOLOGY [place] [address] documented as of this encounter Visit Diagnoses Not on filedocumented in this encounter Care Teams Ui Developer Relationship Specialty Start Date End Date Radha Acuna MD [address] [place] [address] [address] [place] [id number] PCP - General 08/07/11 documented as of this encounter
--- OUTSIDE RECORDS SUMMARY | 2024-04-07 16:37 | XMS_ITS | Encounter Summary ---
Author Organization [facility] Address [facility] [place] [address] Care Team Providers Care Billet Recorder Name Role Phone Radha Acuna MD Primary Care Provider +1- [phone] Encounter Details Date Type Department Care Team (Latest Contact Info) Description 07/30/2023 1:00 PM EDT TH Visit (TeleHealth) Psychiatry [place] [address] Erna Haji, PhD [facility] OPHTHALMOLOGY [place] [address] Malignant neoplasm of upper-outer quadrant of right [...] as of this encounter Progress Notes * Erna Haji, PhD - 07/30/2023 1:00 PM EDT Neuropsychology Feedback Note. I spoke with Ms. Frances to review the preliminary results of her recent neurocognitive testing. She demonstrated a good understanding of the information. We will meeton August 08 to review the final results in more detail. documented in this encounter Plan of Treatment Upcoming Encounters Date Type Department Care Team (Late st Contact Info) Description 06/30/2024 4:30 PM EDT Office Visit Hematology [place] [address] Shilpi Gallegos MD [facility] DR HEMATOLOGY AND [place]OG[place] [address] documented as of this encounter Visit Diagnoses Diagnosis Malignant neoplasm of upper-outer quadrant of right breast in female, estrogen receptor positive documented in this encounter Care Teams Billet Recorder Relationship Specialty Start Date End Date Radha Acuna MD [address] [place] [address] [place] [address] PCP - General 08/07/11 documented as of this encounter
--- OUTSIDE RECORDS SUMMARY | 2024-04-07 16:37 | XMS_ITS | Encounter Summary ---
Author Organization [facility] [place] [address] Care Team Providers Care Scrum Product Owner Name Role Phone Radha Acuna MD Primary Care Provider +1- [phone] Reason for Visit * Reason Comments Follow-up Encounter Details Date Type Department Care Team (Late st Contact Info) Description 07/23/2022 4:15 PM EDT Office Visit Dermatology at [address] [address] Brian Naranjo MD [address] [facility] [[email or web address] [place] [address] Seborrheic dermatitis Social History Tobacco Use Types Packs/Day Years [...] as of this encounter Progress Notes * Brian Naranjo MD - 07/23/2022 4:15 PM EDT Problem: 1. Scalp pruritus 2. History of breast carcinoma Trina follows up concern about itching in her scalp. Since July 06 she had an episode of itching in the lower nape of her neck and swelling of lymph nodes there as well. She did not feel overly sick. She did not feel she had had a viral or other infection and she denies strep throat. Since then has gotten better she still has 1 remaining lymph node which is slightly enlarged. She is here today with her daughter Moni. She states that her perioral dermatitis resolved quickly after last visit on March 27, 2022 with the 6-week minocycline course. Physical examination reveals a single superficial lymph node present in the left lower nape of her neck. Patient has some patchy erythema with overlying large greasy scaling consistent with seborrheic dermatitis. It does not extend up into the upper occipital scalp. She has no stigmata of psoriasison the elbows or knees. Assessment plan: Seborrheic dermatitis recent likely viral or bacterial illness triggering shotty adenopathy in the neck 1. Begin triamcinolone 0.1% % cream apply twice daily to rash area on nape of neck until clears. Dispense 15 g with 1 refill 2. Patient given a list of [id number] antiseborrheic shampoos that she can use as well to clear this. 3. Return clinic as needed. CC: Radha Acuna MD documented in this encounter Plan of Treatment Upcoming Encounters Date Type Department Care Team (Late st Contact Info) Description 06/30/2024 4:30 PM EDT Office Visit Hematology [place] [address] Shilpi Gallegos MD [facility] DR HEMATOLOGY [place] [address] documented as of this encounter Visit Diagnoses Diagnosis Seborrheic dermatitis Seborrheic dermatitis, unspecified documented in this encounter Care Teams Scrum Product Owner Relationship Specialty Start Date End Date Radha Acuna MD [address] [place] [address] [place] [address] PCP - General 08/07/11 documented as of this encounter
--- OUTSIDE RECORDS SUMMARY | 2024-04-07 16:37 | XMS_ITS | Encounter Summary ---
Author Organization [facility] [place] [address] Care Team Providers Care Sat Instructor Name Role Phone Radha Acuna MD Primary Care Provider +1- [phone] Encounter Details Date Type Department Care Team (Latest Contact Info) Description 02/11/2023 Travel Social History Tobacco Use Types Packs/Day [...] EDT Office Visit Hematology [place] [address] Shilpi Gallegos MD [facility] HEMATOLOGY [place] [address] documented as of this encounter Visit Diagnoses Not on filedocumented in this encounter Care Teams Sat Instructor Relationship Specialty Start Date End Date Radha Acuna MD [address] [place] [address] [address] [id number] PCP - General 08/07/11 documented as of this encounter
--- OUTSIDE RECORDS SUMMARY | 2024-04-07 16:37 | XMS_ITS | Encounter Summary ---
Author Organization [facility] Address [facility] [place] [address] Care Team Providers Care Hvac Mechanic Name Role Phone Radha Acuna MD Primary Care Provider +1- [phone] Reason for Visit * Reason Comments Medication Refill Encounter Details Date Type Department Care Team (Late st Contact Info) Description 07/02/2023 Refill Hematology [place] [address] Shilpi Gallegos MD [facility] DR HEMATOLOGY [place] [address] Social History Tobacco Use Types Packs/Day Years [...] PM EDT documented as of this encounter Miscellaneous Notes * Telephone Encounter - Laxmi Salazar PA - 07/02/2023 10:40 AM EDT Reviewed pt hx and recent notes, approved, please ensure proper f/u visits. Thank you for your time and help, ROMEO LawsC * Telephone Encounter - Laura Seaman RN - 07/02/2023 10:20 AM EDT Received request via [employer] for refill of Tamoxifen 20 mg. Per review of medical record- Started April 2017. Plan for 5- 10 years and can switch to AI when postmenopausal. Per review of medical record, refill appears to be appropriate. Taking a drug Holiday but plans areto continue so refill is appropriate. Last prescribed 07/10/22 Script prepared and sent to provider for review, signature and escribe. documented in this encounter Plan of Treatment Upcoming Encounters Date Type Department Care Team (Late st Contact Info) Description 06/30/2024 4:30 PM EDT Office Visit Hematology [place] [address] Shilpi Gallegos MD [facility] DR HEMATOLOGY [place] [address] documented as of this encounter Visit Diagnoses Not on filedocumented in this encounter Care Teams Hvac Mechanic Relationship Specialty Start Date End Date Radha Acuna MD [address] [place] [address] [place] [address] PCP - General 08/07/11 documented as of this encounter
--- OUTSIDE RECORDS SUMMARY | 2024-04-07 16:37 | XMS_ITS ---
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 On 09/11/16, she underwent a mammogram followed by ultrasound showing 2 right breast masses and right axilla node 1.2cm. Biopsy showed invasive ductal carcinoma, grade 2 with DCIS. HER2+ (FISH HER2:CEP-17 = 10), ER+/LA+ (11-90%). A right axilla node biopsy was [...] TCH-P x 6 cycles Cycle 1-6 TCH-P 10/05/16 - 01/29/17 Surgery delayed due to persistent grade 3 thrombocytopenia, no transfusions required. Surgery 03/15/17, bilateral mastectomies with reconstruction, with near complete response to NAC. 0/8 lymph nodes without evidence of treatment effect; Tumor bed approx 1.5 cm with complete response except for focal residual micro-invasive IDCA. Focal DCIS high grade, no LVI. [id number] 09/11/16- MAMMO BREAST US LIMITED BILATERAL, MAMMO [...] cancer cells with immunostaining, Stain Intensity Moderate. LA immunoreactivity: ??Positive 11-90% cancer cells with immunostaining, Stain Intensity Moderate to focal Strong. Jar3kgh FISH is amplified. B - ??Needle biopsies: [...] to Treated DCIS, 3 mm) Lymph Nodes ?[place] Lymph Nodes: ?? [place] lymph node biopsy performed ?Number of [place] Nodes Examined: ?8 ?Lymph Node Involvement: ?? None identified In summary, Trina Frances is a 36 yo woman with right breast IDC, ER/LA+, [id number] Initial imaging suggested a disease process spanning ~7cm (though MRI and PET scan shows 2 discrete lesions measuring ~13mm and 1 cm). She was treated with neoadjuvant chemotherapy followed by mastectomy with residual microinvastion and 0 of 8 LNs involved. 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 Past Plans ADULT TREATMENT Plan Name Start Date Discontinue Date Treatment Medications Discontinue Reason Plan Provider [facility] ONC BREAST CANCER - TRASTuzumab 04/28/19 17 05/03/2018 TRASTuzumab (Herceptin) in sodium chloride 0.9% 250 mL infusion Therapy Complete Shilpi Gallegos MD 4 of 4 cycles started [facility] ONC BREAST CANCER - CARBOplatin / DOCEtaxel / TRASTuzumab / PERTuzumab 10/06/19 17 03/31/2017 CARBOplatin (Paraplatin) in 150 mL infusionDOCEtaxeL (Taxotere) in sodium chloride 0.9% 250 mL infusionPERTuzumab (Perjeta) in sodium chloride 0.9% 250 mL infusionTRASTuzumab (Herceptin) in sodium chloride 0.9% 250 mL infusion Therapy Complete Shilpi Gallegos MD 6 of 6 cycles started [facility] Maintenance Plan Name Start Date Discontinue Date Treatment Medications Discontinue Reason Plan Provider [facility] 12/16/2016 08/22/2020 No medications scheduled. Therapy Complete Shilpi Gallegos MD Radiation Treatments * No radiation treatments are documented for this patient in [facility]. Treatments may have been administered in another system. Resolved Problems Problem Noted Date Diagnosed Date Resolved Date Drug-induced hypokalemia 12/08/2016 Thrombocytopenia due to drugs 12/08/2016 04/28/2017 Drug-induced anemia 11/27/2016 04/28/19 18
--- OUTSIDE RECORDS SUMMARY | 2024-04-07 16:37 | XMS_ITS | Encounter Summary ---
Author Organization [facility] [place] [address] Care Team Providers Care Technical Engineer Name Role Phone Radha Acuna MD Primary Care Provider +1- [phone] Encounter Details Date Type Department Care Team (Late st Contact Info) Description 07/23/2022 Refill Dermatology at [address] [phone] Edita Tee, PHARMACY TECH CUSTOMER SERVICE Social History Tobacco Use Types Packs/Day Years [...] EDT Office Visit Hematology [place] [address] Shilpi Gallegos MD [facility] HEMATOLOGY [place] [address] documented as of this encounter Visit Diagnoses Not on filedocumented in this encounter Care Teams Technical Engineer Relationship Specialty Start Date End Date Radha Acuna MD [address] [place] [address] [place] [address] PCP - General 08/07/11 documented as of this encounter
--- OUTSIDE RECORDS SUMMARY | 2024-04-07 16:37 | XMS_ITS | Encounter Summary ---
Author Organization [facility] [place] [address] Care Team Providers Care Can Striper Name Role Phone Radha Acuna MD Primary Care Provider +1- [phone] Encounter Details Date Type Department Care Team (Latest Contact Info) Description 01/31/2024 Travel Social History Tobacco Use Types Packs/Day [...] EDT Office Visit Hematology [place] [address] Shilpi Gallegos MD [facility] HEMATOLOGY [place] [address] documented as of this encounter Visit Diagnoses Not on filedocumented in this encounter Care Teams Can Striper Relationship Specialty Start Date End Date Radha Acuna MD [address] [place] [address] [address] [id number] PCP - General 08/07/11 documented as of this encounter
--- OUTSIDE RECORDS SUMMARY | 2024-04-07 16:37 | XMS_ITS | Encounter Summary ---
Author Organization [facility] Address [facility] [place] [address] Care Team Providers Care Electronic Publisher Name Role Phone Radha Acuna MD Primary Care Provider [phone]- [phone] Reason for Referral * Psychiatric (Routine) - Closed Specialty Diagnoses / Procedures Referred By Clara cisneros Referred To Contact Psychiatry Diagnoses Malignant neoplasm of upper-outer quadrant of right breast in female, estrogen receptor positive Long-term current use of tamoxifen Cognitive deficits Procedures PRO NEUROBEHAVIORAL STATUS EXAM PHYS/QHP 1ST HR CRANI-MICHAEL, TRMT INTRACRANIAL HTN, W/O LOBECTOMY PRO NEUROPSYCHOLOGICAL TEST EVAL PHYS/QHP EA ADDL HR PRO PSYL/NRPSYCL TEST PHYS/QHP 2+ TEST 1ST 30 MIN PRO PSYCL/NRPSYCL TEST PHYS/QHP 2+ TEST EA ADDL 30 MIN Shilpi Gallegos MD [facility] [address] HEMATOLOGY [place] [address] Erna Haji, PhD [facility] [address] Referral ID Status Reason Start Date Expiration Date V isits Requested Visits Authorized [id number] Closed Consult, Test & Treat 06/23/2023 06/22/2024 1 11 Reason for Visit * Reason Comments Follow-up Encounter Details Date Type Department Care Team (Late st Contact Info) Description 06/23/2023 4:30 PM EDT Office Visit Hematology [place] [address] Shilpi Gallegos MD [facility] [address] HEMATOLOGY [place] [address] Invasive ductal carcinoma of right breast; Malignant neoplasm of upper-outer quadrant of right breast in female, estrogen receptor positive; Long-term current use of tamoxifen Social History Tobacco Use Types Packs/Day Years [...] PM EDT documented as of this encounter Last Filed Vital Signs Vital Sign Reading [...] Mass Index 21.01 06/23/2023 4:10 PM EDT documented in this encounter Progress Notes * Odessa Iqbal, MRI SPECIALIST - 06/23/2023 4:30 PM EDT Patient ID: Trina Frances is a 42 y.o. female. Cc: breast cancer Interval history: Trina here for yearly f/u with her daughter On tamoxifen and has multiple questions would like to see Dr. Gallegos who joins visit. Feels forgetful, which started 6 months after starting the tamoxifen Has done online cognitive testing and has been normal, but test may be geared for someone more severe, just fells below her baseline prior to starting Tamoxifen. 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 Read online magnesium helps with memory LMP: 12/09/2022 Hair thinning and breakage has increased as well Keep getting ovary cysts Has never tried a drug holiday HPI Clinical Right breast cancer, dx at age 36. overlapping sites, clinical [id number] ER/WV + HER2 + ratio 10.0 Right breast axillary ultrasound biopsy negative PET scan negative ? Superior cervical node abnormality, biopsy 10/02/16 benign. BRCA panel testing negative for germline mutations. In 07/2016, she noted a tender right breast lump without skin changes or nipple discharge. 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 On 09/11/16, she underwent a mammogram followed by ultrasound showing2 right breast masses and right axilla node 1.2cm. Biopsy showed invasive ductal carcinoma, grade 2with DCIS. HER2+ (FISH HER2:CEP-17 = 10), ER+/WV+ (11-90%). A right axilla node biopsy was negative. On 09/17/16, a bilateral breast MRI showed [...] with complete response except for focal residual micro- invasive IDCA. Focal DCIS high grade, no LVI. [id number] 09/11/16- MAMMO BREAST US LIMITED BILATERAL, MAMMO 2D DIGITAL BILATERAL DIAGNOSTIC WITH CAD. FINDINGS: The breasts are heterogeneously dense, which may obscure small masses. There are spiculated massesand pleomorphic microcalcifications identified in the right upper inner quadrant extending to the nipple anteriorly and suspected towards the chest wall posteriorly crossing the midline toward the 11:00 radian and extending just below the central axis on the MLO view. The lesion spans 7.5 cm in diameter. The palpable lumps correspond to 2 of the larger components of soft tissue density, measuring1.2 cm at the 2:00 radian and 1.3 cm at the 3:00 radian. The left breast is unremarkable. Bilateralbreast ultrasound: I performed high-resolution ultrasound followingthe technologist. [...] 2 cm from the nipple. A - Needle biopsies: Right breast lesion 1 Diagnosis: Invasiveductal carcinoma, intermediate grade. Ductal carcinoma in-situ, high grade with comedo necrosis. ERimmunoreactivity: Positive 11-90% cancer cells with immunostaining, Stain Intensity Moderate. WV immunoreactivity: Positive 11-90% cancer cells with immunostaining, Stain Intensity Moderate to focal Strong. [id number] FISH is amplified. B - Needle biopsies: Right axillary node ultrasound biopsy. Diagnosis: Benign node fragments. 09/17/16- BILATERAL BREAST MRI. LEFT Breast: Confluent tissue is noted in the in the left upper outerquadrant with uninterrupted ductal structures, favoring physiologic variation/fibrocystic change. RIGHT Breast:There are enhancing masses and nonmass enhancement extending from 1:00 radian superiorlythrough the 3:00 radian inferiorly. There are 2 [...] cm. Ductal carcinoma in situ component is notwell depicted at MRI. However, the MRI does exclude any evidence of chest wall invasion. :Specific features of the biopsied right breast lesion(s) is/are as follows: RIGHT BREAST LESION 1: 1 cm Mass.Right medial breast 3 O'Clock 3 cm from the nipple by MRI. Mass Shape: Round Margins: Not circumscribed - Spiculated Enhancement: Homogenous Delayed phase: Plateau. Non mass enhancement: Distribution: Segmental Enhancement: Initial upslope: Slow. Delayed phase: Progressive. Lymph Node Basins/Other:There is no evidence of internal mammary or axillary adenopathy. Specifically the lymph node basin of the right axilla has been surveyed by ultrasound with core biopsy sampling of one of the dominantaxillary lymph nodes yielding no evidence of malignancy. [...] of invasive ductal carcinoma. There is a hypermetabolicapproximately 6 x 3 mm right axillary lymph node (axial images 35, 36), adjacent to a surgical clip. Additional nonpathologically enlarged less intensely hypermetabolic right axillary lymph nodes arenoted. Foci of activity seen in the left axilla corresponds to normal variant brown fat. Additionalsmall hypermetabolic focus seen in the left axilla seen on axial images 42-43, better appreciated on the coronal images, appears to correspond to a small subcentimeter lymph node on CT. Normal activity in all remaining soft tissue regions. A left-sided Mediport with tip terminating in the right atrium. ABDOMEN/PELVIS: Hypermetabolic 5 mm in short axis distal right external iliac lymph node (axialimages 168-169). Activity seen within the endometrium is likely physiologic. Focus of activity in the posterior right hemipelvis (axial image 164) may represent functioning ovarian tissue. IncidentalCT visualized findings: punctate nonobstructing right renal calculus and suture material along the cecum consistent with history of prior appendectomy. SKELETON/EXTREMITIES: Normal marrow activity inall regions of the axial and visualized appendicular [...] metastases. 3. Hypermetabolic activity in the right hemipelvis,may represent functioning ovarian tissue. Anatomic evaluation is [...] identified, Margins uninvolved by invasive carcinoma (closest isto Treated DCIS, 3 mm) Lymph Nodes Merlin Lymph Nodes: Merlin lymph node biopsy performed Number of Merlin Nodes Examined: 8 Lymph Node Involvement: None identified In summary, Trina Frances is a 36 yo woman with right breast IDC, ER/WV+, [id number] Initial imaging suggested a disease process spanning ~7cm (though MRI and PET scan shows 2 discrete lesions measuring ~13mm and 1 cm). She was treated with neoadjuvant chemotherapy followed by mastectomy with residual microinvastion and 0 of 8 LNs involved. pT1mi pN0 Review of Systems Constitutional: Negative. No regular exercise program, not a fan. HENT: Negative. Eyes: Negative. Respiratory: Negative. Cardiovascular: Negative. Gastrointestinal: Negative. Endocrine: Negative. Genitourinary: Negative. Musculoskeletal: Negative. Skin: Negative. Allergic/Immunologic: Negative. Neurological: Negative. Hematological: Negative. Psychiatric/Behavioral: Negative. Objective: Physical Exam Patient Vitals for the past 24 hrs: Temp Pulse Resp BP SpO2 06/23/23 1610 36.3 ??C (97.3 ??F) 72 16 109/81 97 % Constitutional: She is oriented to person, place, and time. She appears well- developed and well-nourished. No distress. HENT: Head: Normocephalic. Eyes: Conjunctivae are normal. Pupils are equal, round, and reactive to light. Neck: Normal range of motion. Cardiovascular: Normal rate, regular rhythm and normal heart sounds. Pulmonary/Chest: Effort normal and breath sounds normal. Breasts/Chest wall: s/p bilateral mastectomy with implant recon. No mass, lacerations, deformity, swelling, tenderness, crepitus or edema. No evidence of CW recurrence or infection. Abdominal: Soft. Bowel sounds are normal. There is no tenderness. Musculoskeletal: Normal range of motion. Extremities: no clubbing, cyanosis or edema Neurological: She is alert and oriented to person, place, and time. Gait normal. Skin: Skin is warm and dry. Psychiatric: She has a normal mood and affect. Her behavior is normal Assessment and Plan: #1 Breast cancer--42 yo with stage I right breast cancer ER+ Her2+ s/p bilateral mastectomy, doing well on tamoxifen plan for 5-10 years and can switch to AI once post-menopausal. No concern for recurrence. IVELISSE. - Discussed the following with the patient and Dr. Gallegos - 3 month drug holiday to see if her forgetfulness improves. - Referral to the Dr. Haji's clinical for evaluation and strategies for improving forgetfulness. - Magnesium supplementation, while there is no data it can help in some people. - Hair and nail type supplements can be added if they are beneficial - Tamoxifen can cause cysts on the ovaries and if they resolve they don't require further monitoring. No evidence linking PCOS and Tamoxifen #2 Chemotherapy--monitoring for toxicity--resolved except for memory and fatigue, likely multi-factorial. #3 Fatigue--stable. #4 Menopausal symptoms--hair thinning, forgetfulness as above -LMP 11/2022, menopausal status labs ordered and patient will get at their convenience. #5 Bone health--normal vit D. at moderate long-term risk for osteoporosis given premature jovan-menopausal secondary to chemotherapy. Plan for baseline dexa 1-2 yrs after LMP. #6 Medication management --no new rx, hold tamoxifen for 3 months Plan: Hold tamoxifen for 3 months this provider will check in about 8-10 weeks from now Consider consult for cognition screening with Dr. Haji F/u 1 yr with BENJAMIN Routine colonoscopy at age 47 Time spent: 40 minutes of which >50% was in discussion documented in this encounter Plan of Treatment Upcoming Encounters Date Type Department Care Team (Late st Contact Info) Description 06/30/2024 4:30 PM EDT Office Visit Hematology [place] [address] Shilpi Gallegos MD [facility] [address] [place] [address] Scheduled Referrals Name Type Priority Associated Diagnoses Order Schedule Referral to Neuropsychology Outpatient Referral Routine Malignant neoplasm of upper-outer quadrant of right breast in female, estrogen receptor positive Long-term current use of tamoxifen Ordered: 06/23/2023 documented as of this encounter Results * Follicle Stimulating Hormone (07/15/2023 4:10 PM EDT) Follicle Stimulating Hormone 13.8 mlU/ML [facility] Comment: Reference Ranges Male: ? 1.5-12.4 mIU/mL Female ?? Follicular: ?3.5-12.5 mIU/mL ?? Ovulation: ? 4.7-21.5 mIU/mL ?? Luteal: ?1.7-7.7 mIU/mL ?? Postmenopausal: ?25.8-134.8 mIU/mL Blood 07/15/2023 4:10 PM EDT 07/15/2023 4:45 PM EDT Narrative Resulting Agency Comment Spec In Lab Odessa Iqbal APRN CHEMISTRY ORDERABLE S Performing Organization Address City/State/[facility] Co de Phone Number [facility] [place] [address] * Estradiol (07/15/2023 4:10 PM EDT) Estradiol 276 pg/mL [facility] Comment: Reference ranges: Males: Adult: ? 11 to 43 pg/mL Females: Non- females: ?Follicular: ??12-233 pg/mL ?Ovulation: ?? 41-398 pg/mL ?Luteal: ?22-341 pg/mL ?Postmenopausal: ?? <5 - 138 pg/mL females: ?1st trimester: ??154-3243 pg/mL ?2nd trimester: ??1561-13063 pg/mL ?3rd trimester: ??8525- >98371 pg/mL Blood 07/15/2023 4:10 PM EDT 07/15/2023 4:45 PM EDT Narrative Resulting Agency Comment Spec In Lab Odessa Iqbal MRI SPECIALIST CHEMISTRY ORDERABLE [facility] [place] [address] documented in this encounter Visit Diagnoses Diagnosis Invasive ductal carcinoma of right breast Malignant neoplasm of upper-outer quadrant of right breast in female, estrogen receptor positive Long-term current use of tamoxifen documented in this encounter Care Teams Electronic Publisher Relationship Specialty Start Date End Date Radha Acuna MD [address] [place] [address] [place] [address] PCP - General 08/07/11 documented as of this encounter
--- OUTSIDE RECORDS SUMMARY | 2024-04-07 16:37 | XMS_ITS | Encounter Summary ---
Author Organization [facility] [place] [address] Care Team Providers Care Data Entry Analyst Name Role Phone Radha Acuna MD Primary Care Provider [phone]- [phone] Encounter Details Date Type Department Care Team (Latest Contact Info) Description 07/27/2023 Travel Social History Tobacco Use Types Packs/Day [...] EDT Office Visit Hematology [place] [address] Shilpi Gallegos MD [facility] HEMATOLOGY [place] [address] documented as of this encounter Visit Diagnoses Not on filedocumented in this encounter Care Teams Data Entry Analyst Relationship Specialty Start Date End Date Radha Acuna MD [address] [place] [address] [address] [place] [id number] PCP - General 08/07/11 documented as of this encounter
--- OUTSIDE RECORDS SUMMARY | 2024-04-07 16:37 | XMS_ITS | Encounter Summary ---
Author Organization [facility] Address [facility] [place] [address] Care Team Providers Care Supervisor Marble Name Role Phone Radha Acuna MD Primary Care Provider [phone]- [phone] Reason for Visit * Psychiatric (Routine) - Closed Specialty Diagnoses [...] EA ADDL 30 MIN Shilpi Gallegos MD [facility] [address] [place] [address] Erna Haji, PhD [facility] [place] [address] Referral ID Status Reason Start Date Expiration Date V isits Requested Visits Authorized [id number] Closed Consult, Test & Treat 06/23/2023 06/22/2024 1 11 Encounter Details Date Type Department Care Team (Late st Contact Info) Description 07/27/2023 8:30 AM EDT Office Visit Psychiatry [place] [id number] Erna Haji, PhD [facility] [place] [address] Cognitive complaints with normal exam; Invasive ductal carcinoma of right breast Social History Tobacco Use Types Packs/Day Years [...] Progress Notes * Erna Haji, PhD - 07/27/2023 8:30 AM EDT [facility] NEUROCOGNITIVE EVALUATION Patient Name: Trina Frances Date of Evaluation: 07/27/2023 Age: 43 years Date of : 1980 Referred by: Shilpi Gallegos MD BACKGROUND AND REASON FOR REFERRAL: Ms. Frances was referred for neuropsychological evaluation in view of subjective cognitive changes in a context of treatment for breast cancer. Background information was obtained from an interview with the patient and from a review of medical records. History of the Presenting Problem: Ms. Frances has a history of stage I right breast cancer s/p neoadjuvant TCH-P x 6 cycles (10/05/2016 - 01/29/2017) and bilateral mastectomy (03/15/2017). She is nowon tamoxifen with the plan to maintain that for 5-10 years and potentially switch to AI once post-menopausal. She was seen 06/24/2023 for annual follow-up and noted forgetfulness that started about six months after starting the tamoxifen. Dr. Gallegos started her on a three-month drug holiday to assess for improvements in cognition. On interview today, she reports she is thriving at work but less so in her day-to-day activities. For example, she has to rely on lists and a transportation planner whereas before she could just remember, and has found she is more likely to jump from one task to another. She also notices brief word-finding pausesof a few extra seconds that occur once or twice a week; these occur for common words. It is difficult for her to pinpoint exactly when she first noticed cognitive difficulties, but going back throughher notes, she was able to identify that she first mentioned them to her provider in 2018. She feels her cognitive difficulties have been at about the same level of severity over time. She does not report other types of cognitive, fine motor, or gross motor difficulties. She is independent with her usual basic ADLs and reports no changes in her complex ADLs. She does notice feelingas though she is on ???autopilot?? when driving in her local area and sometimes has to stop and con sciously think about where she is. However, she has not experienced any difficulties with driving, no accidents, and no close calls. 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 Her commute is 3 hours/day when she works here. 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 She says she loves her work, likes to stay busy, and does not generally experience fatigue with this schedule. She reports her mood is euthymic and that there have been no changes in her personality or behavior. Since being on the current tamoxifen holiday, she has noticed a significant improvement in her sleep. Prior to this, she was waking frequently due to hot flashes despite using multiple compensatory strategies such as fans and cooling pads. She has also noticed improvements in her memory and concentration. She is interested in trying a magnesium subtype, which she understands can help with cognition. She exercises on a daily basis. Medical History: IgA deficiency, multiple food allergies, one episode of back pain. She has no history of brain injury or neurological disorder. She has no history of psychiatric concerns. She drinksvery rarely and has never used substances. She is a never smoker. Developmental, Educational, and Social History: Her and early development were within normal limits. She was a good student and did not experience learning or other cognitive difficulties in school. 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 She completed an Associate in Science degree and a Bachelor of Nursing degree. She lives at home with her and children. Family Medical History: myocardial infarction (father), autoimmune disorder (sister), lymphoma (maternal aunt), Alzheimer's disease (great grandmother). Medications: tamoxifen (Nolvadex); fluconazole (Diflucan); triamcinolone (Kenalog) cream; cetirizine (Zyrtec); famotidine (Pepcid); acetaminophen (Tylenol); lactobacillus acidophilus (Probiotic Oral); multivitamin (Theragran). Prior Neuropsychological Testing: None. BEHAVIORAL OBSERVATIONS: Ms. Frances was alert and fully oriented to person, place, time, and situation. She had no difficulty understanding interview questions. Spontaneous speech was fluent, prosodic, and free of paraphasic errors. Thought processes were logical and goal-directed. Mood and affect were appropriate to context. She was able to see and hear the test stimuli, and understood the instructions. She showed excellent engagement in the testing process and put forth good effort. The obtained test results are considered a valid indication of her current level of cognitive functioning. PROCEDURES ADMINISTERED: Clinical Interview Digit Span Forward and Backward (WAIS-IV) Symbol-Digit Modalities Test (SDMT) Reitan Haynes Making Test Ruff 2&7 Test DK Color-Word Test Neurobehavioral Cognitive Status Examination (NCSE) - Judgment Similarities (WAIS-IV) Matrix Reasoning (WAIS-IV) Rosales Verbal Learning Test - Revised (HVLT-R) Marcos Memory Scale-IV (WMS-IV) Logical Memory Brief Visuospatial Memory Test - Revised (BVMT-R) Comprehension of Complex Ideational Material ([place]icao Diagnostic Aphasia Examination (BDAE)) Sheila-Stallworth Executive Function System (DK) Verbal Fluency Vocabulary (WAIS-IV) Neurobehavioral Assessment Battery - Naming Repetition (BDAE) Reading Sample (BDAE) Test of Premorbid Function Narrative Writing Sample Written Math Sample IdentiFi Visual Recognition Visual Puzzles (WAIS-IV) Drawings to Command and Copy Clock Drawing Test Madan-Osterrieth Complex Figure Test (ROCFT) Handedness Questionnaire (Laterality Index) Grooved Pegboard Test Thumb-Finger Sequencing Test Praxis Test James Depression Inventory-Fast Screen for Medical Patients (BDI-FS) James Depression Inventory-II (BDI-II) State-Trait Anxiety Inventory-II Insomnia Index Fatigue Severity Scale All tests were administered by the neuropsychologist. TEST RESULTS: Note: Descriptors are based on age-appropriate healthy adult normative data. The term ???within normal limits?? (WNL) is used when a more specific descriptor is not applicable. Descriptor Standard Score Scaled z Percentile Very Superior >= 130 > 16 >= 2 >= 98 Superior 120-129 14-15 1.3 to 1.9 91-97 High Average 110-119 12-13 0.7 to 1.2 75-90 Average 90-109 8-11 -0.6 to +0.6 25-74 Low Average 80-89 6-7 -0.7 to -1.3 9-24 Borderline 70-79 4-5 -1.4 to -2.0 2-8 Extremely Low < 70 < 4 < -2 < 2 Measure Score Descriptor 07/27/2023 IPT Attention and Executive Functioning Digit Span Forward () 12 High Average Digit Span Backward () 11 Average Ruff 2&7 Controlled (RS, T) 151, 58 High Average Ruff 2&7 Automatic (RS, T) 165, 55 Average SDMT - Written (RS, z) 62, 0.7 High Average SDMT - Oral (RS, z) 69, 0.7 High Average Reitan Haynes-Making A (Seconds, z) 24, 0.8 High Average Reitan Haynes-Making B (Seconds, z) 42, 1.2 High Average D-K Color Word - Color Naming () 10 Average Word Reading () 11 Average Inhibition () 12 High Average Inhibition/Switching () 13 High Average NCSE Judgment (RS) 5/6 WNL WAIS-IV Similarities () 8 Average WAIS-IV Matrix Reasoning () 12 High Average Learning and Memory HVLT-R Form 1 Learning Trials (RS) 11-12-12 Total Learning (RS, z) 35/36, 1.7 Superior Delayed Recall (RS, z) 12/12, 0.9 High Average (Max.) Recognition (TH, FP, z) 12, 0, 0.8 High Average (Max.) Logical Memory Immediate () 9 Average Delayed Recall () 10 Average Recognition (RS, CP) 25/30, 51-75 Average to High Average BVMT-R Form 1 Learning Trials (RS) 8-11-11 Total Learning (RS, z) 30/36, 0.9 High Average Delayed Recall (RS, z) 11/12, 0.8 High Average Recognition (TH, FP, WY) 6, 1, 11-16 WNL Language Skills BDAE Speech Comprehension (RS) 10/10 WNL Vocabulary () 11 Average DK Verbal Fluency Form A Letter () 8 Average Category () 14 Superior NAB Naming Test (RS, T) WNL Repetition (RS) 7/ WNL BDAE Reading Aloud (RS) /10 WNL Reading Comprehension (RS) 5/5 WNL Narrative Writing Sample (Errors) 0 WNL Written Math Sample (RS) 13/14 WNL Test of Premorbid Function () 107 Average Spatial Skills IdentiFi Visual Recognition (RS, T) /, 51 Average Visual Puzzles () 10 Average Drawings Norms Y Drawing Cube (RS, z) 1, 0.8 High Average Drawings to Copy - Cross (RS, z) 1, 0.8 High Average Cube (RS, z) 1, 0.8 High Average Hexagons (RS, z) 1, 1.1 High Average Clock Drawing to Command (RS) 10/10 WNL Fine Motor Skills Laterality Index 100 Right-Handed Grooved Pegboard - Dominant (RS, z) 69, -0.8 Low Average Grooved Pegboard - Nondom. (RS, z) 68, 0.3 Average TFST Norms Y TFST - Dominant (RS, z) 10, 0.4 Average TFST - Nondominant (RS, z) 9, 0.1 Average Praxis - Dominant (RS) 5/5 WNL Praxis - Nondominant (RS) 5/5 WNL Questionnaires BDI-2 (RS) 0 WNL STAI - State (RS, z) 36, 0.0 WNL Trait (RS, z) 25, 1.1 WNL Insomnia Index (RS) 0, 11 WNL, Subthreshold* Fatigue Severity Scale (RS, z) 1.2 WNL RS = raw score; = age scaled score; T = T-score; TH = total hits; FP = false positives; WY = percentile rank; CP = cumulative percentage; IPT = in-person testing; TELE = telehealth * Not on tamoxifen-WNL, On tamoxifen-Subthreshold. REVIEW OF TEST RESULTS: Attention and Executive Functions: Basic auditory span of attention was high average. Auditory verbal working memory was average. Sustained attention was average to high average. Speed of processing was also average to high average. Cognitive flexibility was high average. Cognitive control was highaverage. Practical reasoning was within normal limits. Abstract verbal reasoning was average. Abstract spatial reasoning was just over one standard deviation unit higher and in the high average. Overall, this domain was notable for a relative strength in nonverbal as compared to verbal reasoning watson context of average to high average attention and executive abilities. Learning and Memory: Learning of a word list was superior. Delayed recall of the list was at the maximum possible level for the test (high average) and recognition was 100% accurate. Recall of stories was average on immediate testing and again after a delay, and recognition was within normal limits. She noted later that, of all the tests, the story recall measure was the most anxiety-provoking. Learning of a set of geometric designs was high average. Delayed recall of the designs was also high average and recognition was within normal limits. Overall, learning and memory scores were in the average to above average range. Within the verbal memory domain, she showed a relative strength in theability to learn and recall a list of words (information she could organize herself) as compared tostories. Language: Speech comprehension was within normal limits for basic yes/no questions and for more complex and nuanced information. Vocabulary knowledge was average. Rate of word retrieval to letter cues was at the lower end of the average range. Rate of word retrieval to category cues was just over two standard deviation units higher and in the superior range; she reported having conceptualized this task via subcategories which may have helped her performance. Confrontation naming was 100% accurate. Repetition was within normal limits. Brief screens of reading fluency, reading comprehension, shira rative writing, and written math were within normal limits. Reading vocabulary was average. Overall, this domain was notable for variable rate of word retrieval, with relatively stronger performance when drawing on her intact semantic organization of language. Spatial Skills: Visuoperceptual integration was intact. Ability to mentally arrange pieces to matcha geometric design was average. Drawings to command and copy were in the average to high average range. Estimated Baseline Intellectual Ability: Based on demographic factors and performance on a ???hold?? test, baseline intellectual ability was estimated to be in approximately the average range. Fine Motor: Peg-placing was low average with her right (dominant) hand and average with her left. Thumb-finger sequencing was average bilaterally. Praxis was within normal limits bilaterally. Questionnaires: On a depression screening questionnaire, she did not endorse any symptoms. Anxiety screening was within normal limits both for the period of testing and in general. She did not endorse elevated fatigue. At present, while on a tamoxifen holiday, she rates her sleep as within normal limits. However, she reports a subthreshold level of insomnia symptoms when on tamoxifen, characterized by wakening due to hot flashes. Comparison to Prior Testing: No prior. FORMULATION AND RECOMMENDATIONS: On current testing, Ms. Frances' cognitive test scores were within normal limits in all domains assessed, with scores in the average to above average range. That said, there was subtle variability within some domains, including lower verbal reasoning than spatial reasoning, lower word retrieval to letter cues than category cues, and on one fine motor task she didnot show the expected pattern of better right (dominant) hand than left hand performance. Mood was euthymic and she did not report significant fatigue. She did report sleep disruption due to hot flashes when on tamoxifen, but not currently while on a holiday from the medication. In summary, this evaluation was notable for subtle variations in performance on two verbal tasks and one right fine motor task in a context of otherwise consistently strong, average to above average cognitive ability. The observed variations in performance are very subtle and likely reflect normal variation in performance in the context of a lengthy neurocognitive evaluation. (1) I have reviewed the preliminary findings with Ms. Frances, and she demonstrated a good understanding of the information. I will meet with her to review the final results and recommendations. (2) We discussed the evidence base for Cognitive-Behavioral Therapy for the treatment of insomnia, and I will follow up with Dr. Gallegos if she is interested in a referral. (3) We also discussed cognitive rehabilitation with a focus on learning internal memory strategies to help her reduce her reliance on external memory aids in her day-to-day life. Internal strategies include things such as repetition, paraphrasing, and visualization. I will coordinate a referral if she is interested. (4) She can be commended for her healthy lifestyle choices, including exercising regularly, avoiding alcohol, and not smoking, all of which are associated with optimizing cognitive functioning. (5) She may benefit from lab testing to assess for treatable etiologies of her subjective cognitivechanges (e.g., Vitamin B6, B9, B12, thyroid function) if not recently done. (6) The observed subtle variability in current testing likely reflects normal variation but brain imaging may, at Dr. Gallegos's discretion, be of value for further assessment. (7) Ms. Frances is welcome to return for repeat neurocognitive evaluation to assess the trajectoryof her cognitive functioning if indicated. She is also welcome to contact me at any time if I can be of assistance. Thank you for referring Ms. Frances for neuropsychological evaluation. Please do not hesitate to contact me if I can be of further assistance (Neuropsychology or via eD or [facility]). Erna Haji, PhD Clinical Neuropsychologist 53675: 0:46 (1 unit) 56541: 1:00 (1 unit) 04701: 1:11 (1 unit) 91590: 0:30 (1 unit) 67816: 3:42 (7 units) documented in this encounter Plan of Treatment Upcoming Encounters Date Type Department Care Team (Late st Contact Info) Description 06/30/2024 4:30 PM EDT Office Visit Hematology [place] [address] Shilpi Gallegos MD [facility] [address] [place] [address] Scheduled Referrals Name Type Priority Associated Diagnoses Order Schedule Referral to Neuropsychology Outpatient Referral Routine Malignant neoplasm of upper-outer quadrant of right breast in female, estrogen receptor positive Long-term current use of tamoxifen Ordered: 06/23/2023 documented as of this encounter Visit Diagnoses Diagnosis Cognitive complaints with normal exam Other signs and symptoms involving cognition Invasive ductal carcinoma of right breast documented in this encounter Care Teams Supervisor Marble Relationship Specialty Start Date End Date Radha Acuna MD [address] [place] [address] [place] [address] PCP - General 08/07/11 documented as of this encounter
--- OUTSIDE RECORDS SUMMARY | 2024-04-07 16:37 | XMS_ITS | Encounter Summary ---
[place] [address] Care Team Providers Care Chemical Preparer Name Role Phone Radha Acuna MD Primary Care Provider [phone]- [phone] Encounter Details Date Type Department Care Team (Latest Contact Info) Description 07/15/2023 4:05 PM EDT Laboratory Appointment Lab [address] [place] [phone] Invasive ductal carcinoma of right breast; Malignant [...] EDT Office Visit Hematology [place] [phone] Shilpi Gallegos MD [facility] DR [place]EMATOLOGY [place] [address] documented as of this encounter Procedures Procedure Name Priority Date/Time Associated Diagnosis Comments ESTRADIOL STAT 07/15/2023 4:10 PM EDT Invasive ductal carcinoma of right breast Malignant neoplasm of upper-outer quadrant of right breast in female, estrogen receptor positive Long-term current use of tamoxifen FOLLICLE STIMULATING HORMONE Routine 07/15/2023 4:10 PM EDT Invasive ductal carcinoma of right breast Malignant neoplasm of upper-outer quadrant of right breast in female, estrogen receptor positive Long-term current use of tamoxifen documented in this encounter Results * Estradiol (07/15/2023 4:10 PM EDT) Estradiol 276 pg/mL [facility] Comment: Reference ranges: Males: Adult: ? 11 to 43 pg/mL Females: Non- females: ?Follicular: ??12-233 pg/mL ?Ovulation: ?? 41-398 pg/mL ?Luteal: ?22-341 pg/mL ?Postmenopausal: ?? <5 - 138 pg/mL females: ?1st trimester: ??154-3243 pg/mL ?2nd trimester: ??1561-21296 pg/mL ?3rd trimester: ??8525- >20151 pg/mL Blood 07/15/2023 4:10 PM EDT 07/15/2023 4:45 PM EDT Narrative Resulting Agency Comment Spec In Lab Odessa Iqbal APRN CHEMISTRY ORDERABLE S [facility] [place] [address] * Follicle Stimulating Hormone (07/15/2023 4:10 PM EDT) Follicle Stimulating Hormone 13.8 mlU/ML [facility] Comment: Reference Ranges Male: ? 1.5-12.4 mIU/mL Female ?? Follicular: ?3.5-12.5 mIU/mL ?? Ovulation: ? 4.7-21.5 mIU/mL ?? Luteal: ?1.7-7.7 mIU/mL ?? Postmenopausal: ?25.8-134.8 mIU/mL Blood 07/15/2023 4:10 PM EDT 07/15/2023 4:45 PM EDT Narrative Resulting Agency Comment Spec In Lab Odessa Iqbal PNEUMATIC DRUM SANDER CHEMISTRY ORDERABLE S Performing Organization Address City/State/[facility] Co de Phone Number [facility] [place] [address] documented in this encounter Visit Diagnoses Diagnosis Invasive ductal carcinoma of right breast Malignant neoplasm of upper-outer quadrant of right breast in female, estrogen receptor positive Long-term current use of tamoxifen documented in this encounter Care Teams Chemical Preparer Relationship Specialty Start Date End Date Radha Acuna MD [address] [place] [address] [place] [address] PCP - General 08/07/11 documented as of this encounter
--- OUTSIDE RECORDS SUMMARY | 2024-04-07 16:37 | XMS_ITS | Encounter Summary ---
Author Organization [facility] Address [facility] [place] [address] Care Team Providers Care Optics Engineer Name Role Phone Radha Acuna MD Primary Care Provider +1- [phone] Encounter Details Date Type Department Care Team (Latest Contact Info) Description 10/04/2023 1:00 PM EDT TH Visit (TeleHealth) Psychiatry [place] [address] Erna Haji, PhD [facility] [place] [address] Invasive ductal carcinoma of right breast Social [...] Progress Notes * Erna Haji, PhD - 10/04/2023 1:00 PM EDT Neuropsychology Note. I met with Ms. Frances to discuss her neurocognitive test results. She demonstrated a good understanding of the information and is aware she is welcome to contact me at any time if I can be of assistance. documented in this encounter Plan of Treatment Upcoming Encounters Date Type Department Care Team (Late st Contact Info) Description 06/30/2024 4:30 PM EDT Office Visit Hematology [place] [address] Shilpi Gallegos MD [facility] DR [place] [address] documented as of this encounter Visit Diagnoses Diagnosis Invasive ductal carcinoma of right breast documented in this encounter Care Teams Optics Engineer Relationship Specialty Start Date End Date Radha Acuna MD [address] [place] [address] [place] [address] PCP - General 08/07/11 documented as of this encounter
--- OUTSIDE RECORDS SUMMARY | 2024-04-07 16:37 | XMS_ITS | Encounter Summary ---
Author Organization [facility] [place] [address] Care Team Providers Care Correctional Nurse Name Role Phone Radha Acuna MD Primary Care Provider +1- [phone] Encounter Details Date Type Department Care Team (Latest Contact Info) Description 07/23/2022 Travel Social History Tobacco Use Types Packs/Day [...] EDT Office Visit Hematology [place] [address] Shilpi Gallegos MD [facility] [place] [address] documented as of this encounter Visit Diagnoses Not on filedocumented in this encounter Care Teams Correctional Nurse Relationship Specialty Start Date End Date Radha Acuna MD [address] [place] [address] [address] [place] [id number] PCP - General 08/07/11 documented as of this encounter
--- OUTSIDE RECORDS SUMMARY | 2024-04-07 16:38 | XMS_ITS | Encounter Summary ---
[place] [address] Care Team Providers Care Patient Financial Advocate Name Role Phone Radha Acuna MD Primary Care Provider +1- [phone] Encounter Details Date Type Department Care Team (Latest Contact Info) Description 10/22/2020 3:30 PM EDT TH Visit (TeleHealth) Hematology [place] [address] Candelaria Pepper PA Adnexal mass; History of unexplained fever; Invasive ductal carcinoma of right breast; Night sweats Social History Tobacco Use Types Packs/Day Years [...] as of this encounter Progress Notes * Candelaria Pepper PA - 10/22/2020 3:30 PM EDT Breast Cancer - Telehealth Visit Patient verbally consents to this Telehealth visit and understands that this visit may be billed, similar to a clinic office visit. I provided care to the patient today via phone. The total time associated with this visit was 30 minutes. Interval history: I spoke to Trina via phone (patient was not on video) to review her scan results. She reports she is feeling about the same, still having night sweats. Completed a 2.5 week prednisone taper per PCP forhives. No new issues to report. Results: With Dr. Gallegos, I reviewed CBC done at [facility] (in media) on 10/03/20. Overall within normal limits aside from some mild abnormalities in the differential (high neutrophils, low lymphocytes, low eosinophils) -- compared to prior labs, these are gradual changes. I reviewed her CT and bone scan reports, done at [facility]. 10/11/20 bone scan: single focus of activity at posterior right chest (?rib vs scapula, ?artifact) 10/15/20 CT c/a/p: no abnormality seen in the ribs or scapulae; no masses or LAD in the chest; 4.1 cmlow density left adnexal mass (?ovarian cyst), pelvis US recommended. Assessment/Plan: #Breast cancer 40 y.o. with stage I right breast cancer ER/MD+ Her2+ s/p neoadjuvant TCH-P chemotherapy followed by bilateral mastectomies (residual microinvasion, 0/8 LN), on tamoxifen since April 2017. Working up for etiology of intermittent fevers and worsening night sweats. - Reviewed recent scans, no signs definitive of metastatic disease or other malignancy. Will get a TVUS at [facility] through her stain sprayer's office, Dr. Liban Fowler. Order sent. Will confirmwith Dr. Gallegos that no further imaging is needed of right posterior chest given negative CT. - CBC diff mildly outside of normal ranges. Will repeat along with other labs requested by Dr. Gallegos. I will call Trina with results. - I recommended she also speak with her PCP about these fevers. Plan: Complete labs locally. TVUS locally. I will call her with results. F/u plan depending on above results. Total time spent on day of visit: 30 min Candelaria Pepper PA-C Medical Oncology - Breast & GI Cancers [facility] Pager - [phone] documented in this encounter Plan of Treatment Upcoming Encounters Date Type Department Care Team (Late st Contact Info) Description 06/30/2024 4:30 PM EDT Office Visit Hematology [place] [address] Shilpi Gallegos MD [facility] DR [place] [address] documented as of this encounter Visit Diagnoses Diagnosis Adnexal mass Other specified symptom associated with female genital organs History of unexplained fever Invasive ductal carcinoma of right breast Night sweats Generalized hyperhidrosis documented in this encounter Care Teams Patient Financial Advocate Relationship Specialty Start Date End Date Radha Acuna MD [address] [place] [address] [place] [address] PCP - General 08/07/11 documented as of this encounter
--- OUTSIDE RECORDS SUMMARY | 2024-04-07 16:38 | XMS_ITS | Encounter Summary ---
Author Organization [facility] [place] [address] Care Team Providers Care Book Solicitor Name Role Phone Radha Acuna MD Primary Care Provider +1- [phone] Encounter Details Date Type Department Care Team (Latest Contact Info) Description 03/27/2022 Travel Social History Tobacco Use Types Packs/Day [...] EDT Office Visit [place] [address] Shilpi Gallegos MD [facility] [place] [address] documented as of this encounter Visit Diagnoses Not on filedocumented in this encounter Care Teams Book Solicitor Relationship Specialty Start Date End Date Radha Acuna MD [address] [place] [address] [address] [place] [id number] PCP - General 08/07/11 documented as of this encounter
--- OUTSIDE RECORDS SUMMARY | 2024-04-07 16:38 | XMS_ITS | Encounter Summary ---
Author Organization [facility] [place] [address] Care Team Providers Care Rescue Boat Operator Name Role Phone Radha Acuna MD Primary Care Provider +1- [phone] Reason for Visit * Reason Comments Follow Up Surgery bilateral implant re con Encounter Details Date Type Department Care Team (Late st Contact Info) Description 08/23/2018 9:45 AM EDT Office [place] [address] Frantz Martínez MD [facility] [place] [address] S/P breast reconstruction, bilateral Social History Tobacco Use Types Packs/Day Years [...] PM EDT documented as of this encounter Patient Instructions * Patient Instructions* Jodie York RN - 08/23/2018 9:45 AM EDT Follow pre op instructions given. documented in this encounter Progress Notes * Frantz Martínez MD - 08/23/2018 9:45 AM EDT Plastic Surgery Follow Up Note Reason for visit: F/U status post procedure Date of surgery: 03/15/17 Procedure(s): Bilateral breast reconstruction with tissue expanders 300ccArtoura High Profile saline breast expanders were placed bilaterally in submuscular/Allomax pockets and filled to 100 cc with sterile saline. (Right mastectomy weight 240 grams) Complications: None reported Date of surgery: 06/09/17 Procedure(s): revision of bilateral breast reconstruction with placement of implants (smooth round mod plus 275cc), capsulotomies Complications: none reported Chemotherapy: Completed one course in January. Began Herceptin Radiation: Not indicated. Symmetry surgery: n/a HPI: Pt reports she has been well. She will see Dr. Gallegos today. The patient has felt tired from her Tamoxifen use. She is pleased with the results of her breast reconstruction, but does wish her implants were slightly larger. Examination: Patient is alert, conversant, comfortable, ambulating Well healed incisions Left upper chest widedened hypertrophic port scar 2.5 cm x 5 mm, it is raised Good symmetry of the breast volume Grade 1-2 capsule bilaterally. Impression: Trina Frances is a 38 y.o. female who was seen today for follow-up after the above procedure. Please see the operative note for details. I assured the patient she has a good result from surgery. I explained to the patient that larger implants would put her skin at risk. Her skin is thin and stretching it further may increase her risk of healing difficulties. We discussed the option of fat grafting to improve the contour of the breasts. This would not make large volume changes in the breasts. I do not believe the patient requires fat grafting, but it may provide some mild improvements in the appearance of the breasts. There is a small risk of infection of the implants with fat grafting. I explained that some of the fat emulsifies during surgery. She is understanding that only a limited amount of fat can be injected and she may need multiple fat grafting procedures. I explained that the fat is typically harvested from the abdomen or flanks. I am willing to revise her hypertrophic port scar, but the patient is understanding that there is a risk of the hypertrophy recurringafter the revision. The revision of the scar may be done under local anesthesia. I would not recommend a steroid injection at this time. I would not give the patient a Valium prior to minor surgery for the chest scar. Plan: Schedule minor surgery Consider fat grafting Surgical Grid: MNS Procedure: Revision of left upper chest scar Timeframe: Elective Time allotted: 60 mins CPT: 05894 Follow up: 10-14 days with AEE or NSO Potential Surgical Grid: Surgeon: Frantz Martínez Duration: 90 mins Timeframe: Elective Coordinated with: None Procedure: Revision of breast reconstruction with bilateral fat grafting CPT: 56521, 64139 Surgical site: Breast, abdomen Side: Bilateral Anesthesia: General Follow up: 7-10 Days with AEE or NSO PAT: No NEED PALS I, Adalberto Scanlon, have performed the documentation for this encounter in the presence of and acting as a scribe for FRANTZ MARTÍNEZ MD. I performed the services which were documented by the scribe, and I agree with the accuracy of the documentation in this encounter. FRANTZ MARTÍNEZ MD documented in this encounter Plan of Treatment Upcoming Encounters Date Type Department Care Team (Late st Contact Info) Description 06/30/2024 4:30 PM EDT Office Visit Hematology [place] [address] Shilpi Gallegos MD [facility] [address] [place] [address] documented as of this encounter Visit Diagnoses Diagnosis S/P breast reconstruction, bilateral Breast replaced by other means documented in this encounter Care Teams Rescue Boat Operator Relationship Specialty Start Date End Date Radha Acuna MD [address] [place] [address] [place] [address] PCP - General 08/07/11 documented as of this encounter
--- OUTSIDE RECORDS SUMMARY | 2024-04-07 16:38 | XMS_ITS | Encounter Summary ---
Author Organization [facility] [place] [address] Care Team Providers Care Right Of Way Man Name Role Phone Radha Acuna MD Primary Care Provider +1- [phone] Encounter Details Date Type Department Care Team (Latest Contact Info) Description 10/29/2020 10:40 AM EDT Ancillary Procedure Radiology Library at [facility], [place], [facility] [place] [facility] [id number] Shilpi Gallegos MD [facility] [address] [place] [address] Invasive ductal carcinoma of right breast; Fever of unknown origin (FUO) Social History Tobacco Use Types Packs/Day Years [...] EDT Office Visit Hematology and Oncology at [facility] [place] [place] [address] Shilpi Gallegos MD [facility] DR [place] [address] documented as of this encounter Procedures Procedure Name Priority Date/Time Associated Diagnosis Comments REQUEST FOR 2ND READ NUCLEAR MEDICINE Routine 10/29/2020 10:30 AM EDT Invasive ductal carcinoma of right breast Fever of unknown origin (FUO) documented in this encounter Results * Request for 2nd read Nuclear Medicine (10/29/2020 10:30 AM EDT) Anatomical Region Laterality Modality SO Impressions 10/29/2020 11:05 AM EDT No skeletal metastases. Thank you for letting us participate in the care of this patient. ??If you are a health care provider and have any questions regarding this report, please contact the number below. ??For patients who have questions please contact the health acute care surgeon that requested your imaging first. ? Electronically signed by: Chad Malone MD, [facility] ([phone]), at 10/29/2020 11:05 AM Narrative 10/29/2020 11:05 AM EDT EXAMINATION: REQUEST FOR 2ND READ NUCLEAR MEDICINE CLINICAL HISTORY: please review outside bone scan; Sending Institution [facility]; Date of exam 20201009; I believe a reinterpretation of this exam may alter care of Patient. Yes TECHNIQUE: A bone scan performed at [facility] is submitted for review. Accompanying paperwork indicates that the study was performed with 24.2 mCi of technetium 99m MDP. Provided are images of the entire skeleton in the anterior posterior projections. There are no lateral views of the skull. COMPARISON: CT scan October 15, 2020 FINDINGS: A focus of increased activity projecting in the posterior aspect of right chest has the appearance most typical for the inferior tip of the right scapula. No image with elevated arms was obtained to separate this from the right seventh rib. No definite rib is present. There are no foci of abnormal activity to indicate skeletal metastases. Procedure Note Chad Malone MD - 10/29/2020 EXAMINATION: REQUEST FOR 2ND READ NUCLEAR MEDICINE CLINICAL HISTORY: please review [facility] exam 20[facility]009; I believe a reinterpretation ofthis exam may alter care of Patient. Yes TECHNIQUE: A bone scan performed at [facility] is submitted for review. Accompanying paperwork indicates that the study was performed with 24.2mCi of technetium 99m MDP. Provided are images of the entire skeleton in theanterior posterior projections. There are no lateral views of the skull. COMPARISON: CT scan October 15, 2020 FINDINGS: A focus of increased activity projecting in the posterior aspect of rightchest has the appearance most typical for the inferior tip of the right scapula.No image with elevated arms was obtained to separate this from the rightseventh rib. No definite rib is present. There are no foci of abnormal activity to indicate skeletal metastases. IMPRESSION No skeletal metastases. Thank you for letting us participate in the care of this patient. If youare a health care provider and have any questions regarding this report,please contact the number below. For patients who have questions please contactthe health acute care surgeon that requested your imaging first. Shilpi Gallegos MD IMG OUTSIDE INTERPR ETATION ORDERABLES documented in this encounter Visit Diagnoses Diagnosis Invasive ductal carcinoma of right breast Fever of unknown origin (FUO) Fever, unspecified documented in this encounter Care Teams Right Of Way Man Relationship Specialty Start Date End Date Radha Acuna MD [address] [place] [address] [place] [address] PCP - General 08/07/11 documented as of this encounter
--- OUTSIDE RECORDS SUMMARY | 2024-04-07 16:38 | XMS_ITS | Encounter Summary ---
[place] [address] Care Team Providers Care Movement Therapist Name Role Phone Radha Acuna MD Primary Care Provider +1- [phone] Encounter Details Date Type Department Care Team (Late st Contact Info) Description 09/05/2019 Telephone Hematology [place] [address] Lyric Thomas, RN Social History Tobacco Use Types Packs/Day Years [...] encounter Miscellaneous Notes * Telephone Encounter - Lyric Thomas, RN - 09/05/2019 2:21 PM EDT Called Trina to provide information on caregiver, mask and screening guidelines. ??? One caregiver will be allowed to assist and wait with the patient in the waiting area. ??? When it is time for the appointment, a staff member will come to the waiting room and take the patient only into the exam room to obtain vital signs and complete other pre-appointment tasks. ??? Caregivers will be asked to remain in the waiting room as space is extremely limited in our exam rooms. This helps us maintain physical distancing and meet safety recommendations during this CoVID 19 pandemic. ??? If the provider would like to speak with the caregiver during any portion of the visit, they will invite the caregiver into the exam room. ??? If the patient is coming to the appointment alone but would like a caregiver to be a part of their medical care and decision making, the patient should arrive to the appointment with the caregiver's phone number, and the provider will call the caregiver during the appointment. SCREENING: ??? Please arrive at least 15-30 minutes in advance of your appointment to allow for the screening process at the door. We will screen you, and anyone with you, for CoVid symptoms and take your temperature. All patients, caregivers, and staff are being screened each time they enter the facility. MASKS: ??? Please be aware that you will need to wear a mask while you are at the hospital. ??? You will be allowed to wear your own mask if you have one, and if you don't, we will give you one to wear. ??? If you are symptomatic you will need to wear a [facility] [place]issued mask. PHONE SCREENING: ??? In order for us to be able to make the best plan to provide your care safely, we need to ask you some screening questions. o Are you currently experiencing any new (within the past 14 days) shortness of breath, cough, nasal congestion or drainage, or fever? no o Have you recently been exposed to anyone with CoVID 19? no o Do you or anyone in your household have a CoVID19 test pending or been tested recently?no ??? If you develop any of these symptoms prior to your appointment, please contact the Cancer Center for further instructions before coming to the hospital. documented in this encounter Plan of Treatment Upcoming Encounters Date Type Department Care Team (Late st Contact Info) Description 06/30/2024 4:30 PM EDT Office Visit Hematology [place] [address] Shilpi Gallegos MD [facility] DR HEMATOLOGY [place] [address] documented as of this encounter Visit Diagnoses Not on filedocumented in this encounter Care Teams Movement Therapist Relationship Specialty Start Date End Date Radha Acuna MD [address] [place] [address] [place] [address] PCP - General 08/07/11 documented as of this encounter
--- OUTSIDE RECORDS SUMMARY | 2024-04-07 16:38 | XMS_ITS | Encounter Summary ---
Author Organization [facility] [place] [address] Care Team Providers Care Hotel Reservation Agent Name Role Phone Radha Acuna MD Primary Care Provider +1- [phone] Reason for Visit * Reason Comments Medication Refill Encounter Details Date Type Department Care Team (Late st Contact Info) Description 03/19/2020 Refill Hematology [place] [address] Shilpi Gallegos MD [facility] [address] [place] [address] Social History Tobacco Use Types Packs/Day Years [...] encounter Miscellaneous Notes * Telephone Encounter - Laura Seaman RN - 03/19/2020 8:44 AM EST Received request via [employer] for refill of tamoxifen 20mg tablet by mouth daily. Per review of medical record- started April 2017 Script prepared and sent to provider for review, signature and escribe. documented in this encounter Plan of Treatment Upcoming Encounters Date Type Department Care Team (Late st Contact Info) Description 06/30/2024 4:30 PM EDT Office Visit [place]ematology [place] [address] Shilpi Gallegos MD [facility] [address] [place] [address] documented as of this encounter Visit Diagnoses Not on filedocumented in this encounter Care Teams Hotel Reservation Agent Relationship Specialty Start Date End Date Radha Acuna MD [address] [place] [address] [place] [address] PCP - General 08/07/11 documented as of this encounter
--- OUTSIDE RECORDS SUMMARY | 2024-04-07 16:38 | XMS_ITS | Encounter Summary ---
Author Organization [facility] [place] [address] Care Team Providers Care Blast Furnace Tender Name Role Phone Radha Acuna MD Primary Care Provider +1- [phone] Encounter Details Date Type Department Care Team (Late st Contact Info) Description 10/08/2020 Orders Only [place] [address] Candelaria Pepper PA Invasive ductal carcinoma of right breast; Night sweats; History of unexplained fever Social History Tobacco Use Types Packs/Day Years [...] EDT Office Visit [place] [address] Shilpi Gallegos MD [facility] HEMATOLOGY [place] [address] documented as of this encounter Visit Diagnoses Diagnosis Invasive ductal carcinoma of right breast Night sweats Generalized hyperhidrosis History of unexplained fever documented in this encounter Care Teams Blast Furnace Tender Relationship Specialty Start Date End Date Radha Acuna MD [address] [place] [address] [place] [address] PCP - General 08/07/11 documented as of this encounter
--- OUTSIDE RECORDS SUMMARY | 2024-04-07 16:38 | XMS_ITS | Encounter Summary ---
Author Organization [facility] Address [facility] [place] [address] Care Team Providers Care Engraving Press Operator Name Role Phone Radha Acuna MD Primary Care Provider [phone]- [phone] Reason for Visit * Reason Comments Follow-up Encounter Details Date Type Department Care Team (Late st Contact Info) Description 03/02/2019 2:00 PM EST Office Visit Hematology [place] [address] Shilpi Gallegos MD [facility] [place] [address] Invasive ductal carcinoma of right breast Social [...] Sign Reading Time Taken Comments Blood Pressure 113/73 03/02/2019 1:55 PM EST Pulse 78 03/02/2019 1:55 PM EST Temperature 37 ??C (98.6 ??F) 03/02/2019 1:55 PM EST Respiratory Rate 18 03/02/2019 1:55 PM EST Oxygen Saturation 98% 03/02/2019 1:55 PM EST Inhaled Oxygen Concentration - - Weight 51.4 kg (113 lb 6.4 oz) 03/02/2019 1:55 P M EST Height 155.5 cm (5' 1.22) 03/02/2019 1:55 PM ES T Body Mass Index 21.27 03/02/2019 1:55 PM EST documented in this encounter Progress Notes * Shilpi Gallegos MD - 03/02/2019 2:00 PM EST Images from the original note were not included. Subjective: Patient ID: Trina Frances is a 38 y.o. female. Cc: breast cancer Interval history: Trina is here for f/u. She is doing very well. 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 Right hip pain has resolved. Menses are irregular. Constipation and BRBPR resolved when she cut back on her MVI. Clinical Right breast cancer, overlapping sites, clinical [id number] ER/CT + HER2 + ratio 10.0 Right breast axillary ultrasound biopsy negative PET scan negative ? Superior cervical node abnormality, biopsy 10/02/16 benign. BRCA panel testing negative for germline mutations. Trina Frances is a 36 y.o. woman who presents with newly diagnosed right breast cancer. In 07/2016,she noted a tender right breast lump without skin changes or nipple discharge. 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 On 09/11/16, she underwent a mammogram followed by ultrasound showing 2 right anca ast masses and right axilla node 1.2cm. Biopsy showed invasive ductal carcinoma, grade 2 with DCIS.HER2+ (FISH HER2:CEP-17 = 10), ER+/CT+ (11-90%). A right axilla node biopsy was [...] IDCA. Focal DCIS high grade, no LVI. [id number] 09/11/16- MAMMO BREAST US LIMITED BILATERAL, MAMMO [...] cancer cells with immunostaining, Stain Intensity Moderate. CT immunoreactivity: ??Positive 11-90% cancer cells with immunostaining, Stain Intensity Moderate to focal Strong. [id number] FISH is amplified. B - ??Needle biopsies: [...] isto Treated DCIS, 3 mm) Lymph Nodes ?Warren Lymph Nodes: ?? Warren lymph node biopsy performed ?Number of Warren Nodes Examined: ?8 ?Lymph Node Involvement: ?? None identified In summary, Trina Frances is a 36 yo woman with right breast IDC, ER/CT+, [id number] Initial imaging suggested a disease process spanning ~7cm (though MRI and PET scan shows 2 discrete lesions measuring ~13mm and 1 cm). She was treated with neoadjuvant chemotherapy followed by mastectomy with residual microinvastion and 0 of 8 LNs involved. pT1mi ??pN0 Review of Systems Constitutional: Negative. HENT: Negative. Right cervical lymph node still palpable per patient. Eyes: Negative. Respiratory: Negative. Cardiovascular: Negative. Gastrointestinal: Negative. Endocrine: Negative. Genitourinary: Negative. Recent vaginal ultrasound reviewed, complex ovarian cyst resolved. Musculoskeletal: Positive for joint swelling. Persistent bump right lateral sternum. Skin: Negative. Allergic/Immunologic: Negative. Neurological: Negative. Hematological: Negative. Psychiatric/Behavioral: Negative. Objective: Physical Exam Constitutional: She is oriented to person, place, and time. She appears well- developed and well-nourished. No distress. HENT: Head: Normocephalic and atraumatic. Right Ear: Tympanic membrane and external ear normal. Left Ear: Tympanic membrane and external ear normal. Mouth/Throat: Oropharynx is clear and moist. Eyes: Pupils are equal, round, and reactive to light. Conjunctivae and EOM are normal. Neck: Normal range of motion. Neck supple. No JVD present. No tracheal deviation present. No thyromegaly present. Cardiovascular: Normal rate, regular rhythm, normal heart sounds and intact distal pulses. Pulmonary/Chest: Effort normal and breath sounds normal. Right breast exhibits no inverted nipple, no mass, no nipple discharge, no skin change and no tenderness. Left breast exhibits no inverted nipple, no mass, no nipple discharge, no skin change and no tenderness. Abdominal: Soft. Bowel sounds are normal. She exhibits no distension and no mass. There is no tenderness. There is no rebound and no guarding. No hernia. Musculoskeletal: Normal range of motion. She exhibits no edema, tenderness or deformity. Lymphadenopathy: She has no cervical adenopathy. Neurological: She is alert and oriented to person, place, and time. Skin: Skin is warm and dry. No rash noted. She is not diaphoretic. No erythema. No pallor. Psychiatric: She has a normal mood and affect. Her behavior is normal. Judgment and thought contentnormal. Nursing note and vitals reviewed. Assessment and Plan: No problem-specific Assessment & Plan notes found for this encounter. #1 Breast cancer--38 yo with stage I right breast cancer ER+ her2 + doing well on tamoxifen. #2 Chemotherapy--monitoring for toxicity--resolved. #3 Fatigue--increased since she started school #4 Menopausal symptoms--premenopausal, menses irregular, stable. #5 Bone health--continue low dose calcium and vit D supplements. #6 Medication management --no new medications. Tamoxifen renewed. Plan: continue tamoxifen F/u 6 months documented in this encounter Plan of Treatment Upcoming Encounters Date Type Department Care Team (Late st Contact Info) Description 06/30/2024 4:30 PM EDT Office Visit Hematology [place] [phone] Shilpi Gallegos MD [facility] [address] [place] [address] documented as of this encounter Visit Diagnoses Diagnosis Invasive ductal carcinoma of right breast documented in this encounter Care Teams Engraving Press Operator Relationship Specialty Start Date End Date Radha Acuna MD [address] [place] [address] [place] [address] PCP - General 08/07/11 documented as of this encounter
--- OUTSIDE RECORDS SUMMARY | 2024-04-07 16:38 | XMS_ITS | Encounter Summary ---
Author Organization [facility] Address [facility] [place] [address] Care Team Providers Care Client Representative Name Role Phone Radha Acuna MD Primary Care Provider [phone]- [phone] Reason for Visit * Reason Comments Rash Encounter Details Date Type Department Care Team (Late Contact Info) Description 03/27/2022 8:30 AM EST Office Visit Dermatology at [address] [place] [address] Brian Naranjo MD [address] [facility], SARAH A DERMATOLOGY [place], [place] [id number] Perioral dermatitis Social History Tobacco Use Types Packs/Day [...] Progress Notes * Brian Naranjo MD - 03/27/2022 8:30 AM EST Problem: 1. New facial rash 2. History of vitiligo utilizing home UVB unit 3. History of chronic urticaria controlled with Zyrtec and Trina follows up and has had a problem with a rash on the right nasal trigone and right lower nasolabial fold and right nasal ala sites. Is been going on for some number of weeks. Her PCP gave her mupirocin to use 3 times daily for a week but this did not bring any improvement. Patient denies any stress, use of corticosteroid creams, change in her make-ups or skin care products. Physical examination today reveals a fine patch of erythematous papules with some slight scaling onthe right lower nasolabial fold area and right nasal trigone area, consistent with perioral dermatitis There is no involvement on the left side of her nose or face. Assessment plan: Perioral dermatitis 1. Begin minocycline 50 mg take 1 p.o. nightly for 1 week then 1 p.o. twice daily for 4 weeks then 1 p.o. daily for 2 weeks then discontinue. Dispense 1 course with 0 refills 2. Expect resolution with this. Patient given informational brochure on the topic perioral dermatitis published by the [place] [employer]. 3. Return to clinic as needed. CC: Radha Acuna MD documented in this encounter Plan of Treatment Upcoming Encounters Date Type Department Care Team (Late st Contact Info) Description 06/30/2024 4:30 PM EDT Office Visit Hematology [place] [address] Shilpi Gallegos MD [facility] DR HEMATOLOGY [place] [address] documented as of this encounter Visit Diagnoses Diagnosis Perioral dermatitis Rosacea documented in this encounter Care Teams Client Representative Relationship Specialty Start Date End Date Radha Acuna MD [address] [place] [address] [place] [address] PCP - General 08/07/11 documented as of this encounter
--- OUTSIDE RECORDS SUMMARY | 2024-04-07 16:38 | XMS_ITS | Encounter Summary ---
Author Organization [facility] Address [facility] [place] [address] Care Team Providers Care Gang Boss Name Role Phone Radha Acuna MD Primary Care Provider +1- [phone] Encounter Details Date Type Department Care Team (Late st Contact Info) Description 06/20/2019 Refill Dermatology at [facility] [address] [place] [address] Shannon Dorman MD [facility] DR [place] [address] Hypertrophic scar of skin Social History Tobacco Use Types Packs/Day Years [...] encounter Miscellaneous Notes * Telephone Encounter - Pooja Hines - 06/20/2019 9:46 AM EDT Pharmacy contacted the clinic today to notify us that they are no longer working w/ the poising inspector for emollient combination no.60 (Celacyn) Gel with Pump. The prescription needs to be resent to: [facility] [address] [address] documented in this encounter Plan of Treatment Upcoming Encounters Date Type Department Care Team (Late st Contact Info) Description 06/30/2024 4:30 PM EDT Office Visit Hematology [place] [address] Shilpi Gallegos MD [facility] DR HEMATOLOGY [place] [address] documented as of this encounter Visit Diagnoses Diagnosis Hypertrophic scar of skin Keloid scar documented in this encounter Care Teams Gang Boss Relationship Specialty Start Date End Date Radha Acuna MD [address] [place] [address] [place] [address] PCP - General 08/07/11 documented as of this encounter
--- OUTSIDE RECORDS SUMMARY | 2024-04-07 16:38 | XMS_ITS | Encounter Summary ---
Author Organization [facility] [place] [address] Care Team Providers Care Auto Driver Name Role Phone Radha Acuna MD Primary Care Provider +1- [phone] Encounter Details Date Type Department Care Team (Late st Contact Info) Description 03/28/2020 Telephone [place] [address] Jennifer Ponce Social History Tobacco Use Types Packs/Day Years [...] encounter Miscellaneous Notes * Telephone Encounter - Jennifer Ponce - 03/28/2020 9:25 AM EST Unable to leave a msg for the patient. Called other contact her who will give his the msg to call us. He made comment that this is the 4th time that it had been canceled and his is unhappy with this. I offered to schedule with another provider (as it is a consult) He will give his the msg. documented in this encounter Plan of Treatment Upcoming Encounters Date Type Department Care Team (Late st Contact Info) Description 06/30/2024 4:30 PM EDT Office Visit H[place]ology [place] [address] Shilpi Gallegos MD [facility] [place] [address] documented as of this encounter Visit Diagnoses Not on filedocumented in this encounter Care Teams Auto Driver Relationship Specialty Start Date End Date Radha Acuna MD [address] [place] [address] [place] [address] PCP - General 08/07/11 documented as of this encounter
--- OUTSIDE RECORDS SUMMARY | 2024-04-07 16:38 | XMS_ITS | Encounter Summary ---
Author Organization [facility] Address [facility] [place] [address] Care Team Providers Care Singe Machine Operator Name Role Phone Radha Acuna MD Primary Care Provider +1- [phone] Reason for Visit * Reason Comments Advice Only * Consultation (Routine) - Specialty Diagnoses / Procedures Referred By Clara cisneros Referred To Contact Dermatology Diagnoses Telagiectasias, Removal of Scar, Steroid Injection Procedures Consult Brian Naranjo MD [address] [place] [address], [place] [address] Shannon Dorman MD [facility] [address] ATTILA [place] [address] Referral ID Status Reason Start Date Expiration Date V isits Requested Visits Authorized [id number] 05/22/2019 05/21/2020 1 1 Encounter Details Date Type Department Care Team (Late st Contact Info) Description 06/19/2019 3:45 PM EDT Office Visit Dermatology at [facility] [address] [place] [address] Shannon Dorman MD [facility] DR ATTILA [place] [address] Hypertrophic scar of skin Social History Tobacco [...] this encounter Patient Instructions * Patient Instructions* Ana Laura MontgomeryJHONNY - 06/19/2019 3:45 PM EDT LASER OHLL[place] QUOTE We discussed VBeam treatment(s) to your telangiectasias We predict you will need 3 treatments to get a meaningful, long lasting result. Those treatments would ideally be spaced 3-6 weeks apart. Afterthat, we recommend you consider maintenance treatments. The cost is $150 per treatment. This is not a package holland. Maintenance prices would be the same holland unless we discuss a new plan. Any quote we give you for a procedure is valid for up to 6 months after your consult. After that, prices are subject to change. If you are unsure about the cost, please ask us to clarify before you undergo your procedure. VBEAM You've made a great choice! The Vbeam procedure is one of the most commonly performed treatments inour office. It is intense, effective and safe. This laser treatment treats redness and blood vessels that detract from a healthy, evenly colored complexion. It also treats the inflammation of rosaceaand acne and can be effective at stimulating collagen growth. Treatments are usually performed as a series. We often suggest 2-5 treatments, performed monthly toobtain substantial improvement. We then advise maintenance treatments every 6-12 months because, whether treating rosacea, sun damage or aging in general, there is always a tendency to re accumulate redness and blood vessels. The best, most long-lasting results are seen in patients who maintain with a good skincare routine that includes excellent sun protection and a retinoid. Discuss this with your provider if you don't have such a regimen. Before Your Vbeam Procedure: ?? Consider taking 400-600 mg Ibuprofen to minimize discomfort during the procedure. ?? Stop all retinols, vitamin C, hydroxy acids 5 days before your treatment. (If on a ZO regimen products to avoid include: C Bright, TE Pads, Exfoliating [place], Vitascrub, Cebatrol, Glycogent, Melamix, Tretinoin, Retamax, Brightenex, Brightamax, Growth Factor, Invisapeel.) Check with your doctor if you are unsure. ?? If you plan to receive numbing cream, please be sure to come 30 min before your appointment timeand tell the senior front end engineer that you were told to do so. ?? Don't plan a major engagement within one week. (Prolonged swelling is very unlikely but better to be safe and allow a week.) ?? Expect redness and swelling for typically 24 hours. After Your Vbeam Procedure: ?? Apply ice fernando as needed for comfort. ?? Avoid heat or sun exposure until redness and swelling subside. ?? Swelling can be minimal to severe. If severe, consider sleeping with the head of your bed elevated. ?? Blood vessels and redness may seem worse than they were before the treatment in some areas. Thisdoesn't mean the treatment wasn't effective. Expect improvement to evolve over the following 3 weeks. ?? OK to resume your normal skin care routine when swelling, sensitivity and redness have resolved (typically 24-48 hours). ?? Avoid sun exposure directly to the skin for 1 week after treatment. Questions and/or concerns please call: VBeam FAQs What does the Vbeam treat? The Vbeam laser is ideal for treating flushing, blood vessels and blood vessel growths (pike angiomas) on the face and body. These unwanted conditions are often the result of rosacea or sun exposure but can also just be a normal product of aging. What is a procedure like? Treatments are mildly to moderately uncomfortable. The discomfort occurs each time the laser is pulsed and resolves completely in between pulses. There is no lingering pain with this procedure. We apply protective eye patches during your treatment and blow cold air directly onto your skin in order to dampen the sting of the laser pulses. What can I do to prepare for a treatment? Calm patients are more comfortable! If you are nervous about the procedure you will have a less pleasant experience. Be sure to let us know if you have any unanswered questions. You may want to take 400-600 mg of Ibuprofen 1 hour before the procedure. Are there things I should avoid before or after the procedure? We ask that you avoid sun exposure 2weeks before and after your procedure. This is so important for avoiding discoloration as a side effect of the treatment. Avoid saunas, hot tubs or any form of high heat on the face for 24 hours after your procedure. What are the risks? Vbeam procedures are very safe. Blistering and scarring are nearly unheard of. Bruising, swelling and redness are common but avoidable with cautious settings. Can I do this and go back to work? Some patients, especially those who do focal treatments on the nose and cheeks, can go right back to work. Swelling and redness after the procedure are largely a factor of the severity of redness and size/amount of blood vessels going into the procedure. Typicallythe first treatment causes the most redness and swelling. Most patients do not plan any important social or work encounters for 3 days to be careful. How long will my results last? The duration of the benefit from Vbeam treatments is variable. It depends on the activity of the underlying condition. A patient with active rosacea will need more frequent treatments than a person whose rosacea is inactive or well managed by skincare or prescriptions. Results are likely to last longer in patients who avoid triggers for their facial redness (sunlight, hot beverages, spicy food, red wine, stress, poor sleep). How often will I need a treatment? Most patients receive 1-3 treatments, by 3-4 weeks andthen receive a single, maintenance treatment every 6- 12 months. Many patients need even fewer treatments b/c they are so careful about avoiding triggers and are using effective skin care and sun protection at home. ???s appointment matrix drier tender For urgent concerns on weekends or off hours please call [facility] main number and ask for the prescription eyeglass maker dust control engineer: or call Dr. Dorman's cell: [phone] documented in this encounter Progress Notes * Shannon Dorman MD - 06/19/2019 3:45 PM EDT Images from the original note were not included. MEDICAL DERMATOLOGY CONSULT Date of service: 06/19/2019 Trina Piña Juan Daniel : 1980 Provider: Shannon Dorman MD Chief Complaint Patient presents with ??? Advice Only HPI Trina Frances is a 38 y.o. year old female. New Patient to me, last sen by [facility]. Naranjo in [facility] 05/22/2019. Here today for cosmetic consultation for telangiectasias from steroid injections for a keloid. ROS General: feeling well Skin: denies other skin complaints Breast feeding:no Trying to get :no PMH: Any chronic medical conditions:no SKIN HX: Vitiligo - UVB Urticaria HSV Hx and Details Yes years ago SH: Tobacco: former ETOH: occasionally ADR: Allergies Allergen Reactions ??? Aspirin Hives ??? Hydrocodone-Acetaminophen Hives ??? Tegaderm [Transparent Dressings] Dermatitis Use mepilex Pt states tegaderm is OK for short periods of time. ??? Tioconazole MEDS: Current Outpatient Medications Medication Sig Dispense Refill ??? fluconazole (Diflucan) 100 mg Tablet ??? predniSONE (Deltasone) 10 mg Tablet TK 6 TABS PO D X3D THEN 5 TABS D X3D THEN 4 TABS D X3D THEN3 TABS D X3D THEN 2 TABS D X3D THEN 1 T D X3D ??? cetirizine (ZyrTEC) 10 mg Tablet Take 1 tablet by mouth 2 times daily. 180 tablet 3 ??? famotidine (Pepcid) 20 mg Tablet Take 1 tablet by mouth 2 times daily. 60 tablet 11 ??? montelukast (Singulair) 10 mg Tablet Take 1 tablet by mouth nightly. 30 tablet 12 ??? tamoxifen (NOLVADEX) 20 mg Tablet Take 1 tablet by mouth daily. 90 tablet 3 ??? lidocaine-prilocaine (EMLA) Cream Apply small amount of cream using q-tip on mediport site approx 30-60 minutes before access. Cover site with pricilla floresap. (Patient not taking: Reported on 06/06/2019) 30 g 0 ??? tretinoin (RETIN-A) 0.025 % Cream apply to affected area at bedtime 0 ??? acetaminophen (TYLENOL) 500 mg Tablet Take 2 tablets by mouth every 8 hours. (Patient not taking: Reported on 06/06/2019) 30 tablet 0 ??? polyethylene glycol (MIRALAX) 17 gram Powder in Packet Take 17 g by mouth daily as needed. ??? docusate sodium (COLACE) 100 mg Capsule Take 100 mg by mouth daily. ??? LACTOBACILLUS ACIDOPHILUS (PROBIOTIC ORAL) Take by mouth daily. ??? multivitamin (THERAGRAN) Tablet Take 1 tablet by mouth daily. Indications: has 500mg of calciumand 1600iu of Vit D No current facility-administered medications for this visit. Examination General: Appears well, no distress Assessment and Plan: # Hypertrophic scar with - left chest - s/p steroid injection Feb 20. - Recommend scar gel, RX: Celacyn gel, apply topically to affected area twice daily. - Apply Celacyn for 3 months before starting laser - Discussed treatment options with laser Quoted: $150 per treatment; 3 treatments 1 month apart. Photo taken and charted with patient consent. Instructions: Handout: VBeam before and after with FAQ FOLLOW UP WHEN: PRN - 1-3 months after starting scar gel FOR WHAT: VBeam LENGTH OF VISIT: 15 NUMBING?: no charge PICTURES NEEDED? no COST: $150 NOTES: I am documenting this encounter acting as the scribe for and in the presence of Dr.Lucas ANA LAURA MONTGOMERY LPN I performed the above scribed service and agree with the accuracy of the documentation in this encounter. Shannon Dorman MD Section of Dermatology [facility] documented in this encounter Plan of Treatment Upcoming Encounters Date Type Department Care Team (Late st Contact Info) Description 06/30/2024 4:30 PM EDT Office Visit [place] [address] Shilpi Gallegos MD [facility] HEMATOLOGY [place] [address] documented as of this encounter Visit Diagnoses Diagnosis Hypertrophic scar of skin Keloid scar documented in this encounter Care Teams Singe Machine Operator Relationship Specialty Start Date End Date Radha Acuna MD [address] [place] [address] [place] [address] PCP - General 08/07/11 documented as of this encounter
--- OUTSIDE RECORDS SUMMARY | 2024-04-07 16:38 | XMS_ITS | Encounter Summary ---
Author Organization [facility] [place] [address] Care Team Providers Care Geotechnician Name Role Phone Radha Acuna MD Primary Care Provider +1- [phone] Reason for Visit * Surgical (Routine) - Closed Specialty Diagnoses / Procedures Referred By Contgabriela t Referred To Contact Plastic Surgery Diagnoses Excision of left posterior shoulder lesion CPT: 00525 Procedures PRO EXC BENIGN LESION MRGN XCP SK TG TRUNK, ARM, LEG, 0.6-1.0 CM PROCEDURE Radha Acuna MD [address] [place] [address] [place] [address] Frantz Zurita MD [facility] [place] [address] Referral ID Status Reason Start Date Expiration Date Visits Re quested Visits Authorized [id number] Closed 05/15/2020 05/15/2021 1 1 Encounter Details Date Type Department Care Team (Latest Contact Info) Description 05/21/2020 2:00 PM EST Procedure visit [place] [address] Frantz Zurita MD [facility] [place] [address] Pigmented skin lesion Social History Tobacco Use Types Packs/Day Years [...] this encounter Patient Instructions * Patient Instructions* Sonam Jensen, A - 05/21/2020 2:00 PM EST The healing process is different for each person / and or procedure. You can expect some discomfort. There will also be swelling and possible bruising that will subsidein the next few days or weeks. Note that your pain, swelling, bruising and drainage are directly related to activity. Dressing: Keep your incision/dressing dry 1 days. You may shower after this time, but do not soak in a pool or bath until completely healed. Steri Strips : Leave the strips in place until your next visit or until they fall off. Glue : Your incision has been sealed with a Skin glue. Do not apply any ointments. You do not need a dressing. Sutures: Your sutures are absorbable and do not need to be removed. Spitting Sutures : Occasionally an area of redness & tenderness develops where a dissolving stitch becomes irritated & pushed to the surface. This stitch is clear or white & looks like fish line. If it occurs, it is not an emergency. You may clip the stitch or call the clinic for an appointment with the nurse. If bleeding occurs which soaks through the outside bandage, apply firm, direct pressure with your hand over the bandage for 15 minutes. Activity Restrictions: To minimize swelling,pain, & bleeding follow these instructions: Avoid strenuous activity, heavy lifting, and bending below the waist for one week. Keep surgery site elevated as much as possible for several days. Protect your incision from the sun for at least 6 months. Medication: Take regular or extra strength Tylenol as directed. Avoid Ibuprofen and Aspirin for 48 hours. Problems to report to your doctor: . A Temperature over 100 F or 38 C. . Excessive redness or warmth spreading away from the incision line after the first 48 hours. . Thick, yellow, foul smelling drainage larger than a dime from the incision or drain site. . Increased pain that is not relieved by you pain medicine. Contact Your Doctor: . During Office Hours: Wednesday through Wednesday from 8am - 5pm Call . On weekends or after office hours:Call and ask the threshing machine operator to page the plastic surgeon canned food reconditioning inspector. . Prescription Line: Call the line at from 8am-4pm Wednesday through Wednesday. documented in this encounter Procedure Notes * Frantz Zurita MD - 05/21/2020 2:00 PM ESTAssociated Order(s): EXCISION BENIGN TRUNK, ARMS, LEGS (MSO) Procedure(s): EXC SKIN BENIG 1.1-2CM TRUNK,ARM,LEG PRFM Pre-Procedure Diagnose(s): Pigmented skin lesion Procedure Note Plastic Surgery Procedure: Excision of left posterior shoulder lesion Anatomic Location: Left shouldre Pre-op diagnosis: Pigmented lesion Post-op diagnosis: Pigmented lesion Consent: Written from patient after discussion of risks and benefits. Physicians: Frantz Zurita M.D. Anesthesia: Local with lidocaine 1% with epi Description: After anesthesia was provided, the site was prepped and draped in sterile fashion. Theleft shoulder skin leasion was marked with the patient in the mirror. An elliptical excsion was planned 1.2x2.8cm. The incision was made with scalpel full thickness removing the lesion in its entirety. This was irrigated and closed in layers with 4-0 monocryl and steri stips placed on the surface. Specimens: left shoulder skin lesion Complications: none immediate EBL: minimal Disposition: Pt. tolerated the procedure well. * Sonam Jensen RMA - 05/21/2020 2:00 PM EST Plastic Surgery Minor Worksheet Surgery: Excision of pigmented lesion left shoulder Skin Prep: Chlorhexadine Cautery Unit: MNS 1 [id number] Grounding Pad Site: right flank Settings: Coa Cuttin Xylocaine w/epi 1:200,000 Prescription: none Post op instructions: See AVS documented in this encounter Plan of Treatment Upcoming Encounters Date Type Department Care Team (Late st Contact Info) Description 06/30/2024 4:30 PM EDT Office Visit Hematology [place] [address] Shilpi Gallegos MD [facility] DR HEMATOLOGY [place] [address] documented as of this encounter Procedures Procedure Name Priority Date/Time Associated Diagnosis Comments SURGICAL PATHOLOGY REPORT Routine 05/21/2020 2:33 PM EST SPECIMEN TO PATHOLOGY Routine 05/21/2020 2:33 PM EST Pigmented skin lesion EXC SKIN BENIG 1.1-2CM TRUNK,ARM,LEG PRFM Routine 05/21/2020 2:00 PM EST Pigmented skin lesion documented in this encounter Results * Surgical Pathology Report (05/21/2020 2:33 PM EST) Final Diagnosis [id number] ? Location: 4M The signing pathologist has (i) examined the relevant preparation(s) for the specimen(s) and (ii) rendered or confirmed the diagnosis(es). . 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, [place], [place] SPECIMEN(S) SUBMITTED A - left shoulder, excision (1) CLINICAL INFORMATION Pigmented lesion SPECIMEN PROCESSING A - Labeled/Fixativ e: Left shoulder pigmented lesion, formalin. Quantity/Size: ??Single, 1.0 x 0.4 x 0.4 cm. Tissue Description: Gregory-tamayo elliptical skin excision with a central 0.5 x 0.3 x 0.3 cm domed, well-circumscri bed rubbery lesion. Two sutures orient the specimen; a long suture at one end designated long lateral, and a short suture centrally along one edge designated short superior. Inking: Inferior is marked black. ??Superior is marked blue. Sections/Proces sing: Serially sectioned and entirely submitted in 3 cassettes as follows: ?A1: ??Medial tip margin ?A2: ??Central lesion ?A3: ??Lateral tip margin ??shb 05/24/2020 12:32 PM EST [facility] SPECIMEN FROM SKIN / Unknown 05/21/2020 2:33 PM EST 05/21/2020 2:33 PM EST Frantz Zurita MD PATHOLOGY/CYTOLOGY O MARK ANTHONY Performing Organization Address [facility]/ZIP Co de Phone Number [facility] [place] [address] * Specimen to Pathology (05/21/2020 2:33 PM EST) AP Specimen 05/21/2020 2:33 PM EST 05/21/2020 2:33 PM EST Narrative [facility] - 05/21/2020 2:33 PM EST Specimen requisition ordered. ??Separate Pathology report to follow Frantz Zurita MD PATHOLOGY/CYTOLOGY O MARK ANTHONY Performing Organization Address [facility]/ZIP Co de Phone Number [facility] [place] [address] * EXC SKIN BENIG 1.1-2CM TRUNK,ARM,LEG PRFM (05/21/2020 2:00 PM EST) Narrative Frantz Zurita MD - 05/21/2020 2:00 PM EST Frantz Zurita MD ? 05/31/2020 ??8:10 AM Procedure Note Plastic Surgery Procedure: Excision of left posterior shoulder lesion Anatomic Location: Left shouldre Pre-op diagnosis: Pigmented lesion Post-op diagnosis: Pigmented lesion Consent: Written from patient after discussion of risks and benefits. Physicians: Frantz Zurita M.D. Anesthesia: Local with lidocaine 1% with epi Description: After anesthesia was provided, the site was prepped and draped in sterile fashion. The left shoulder skin leasion was marked with the patient in the mirror. An elliptical excsion was planned 1.2x2.8cm. The incision was made with scalpel full thickness removing the lesion in its entirety. This was irrigated and closed in layers with 4-0 monocryl and steri stips placed on the surface. Specimens: left shoulder skin lesion Complications: none immediate EBL: minimal Disposition: Pt. tolerated the procedure well. Frantz Zurita MD DERM PROCEDURE ORDER ZAFAR documented in this encounter Visit Diagnoses Diagnosis Pigmented skin lesion Dyschromia, unspecified documented in this encounter Care Teams Geotechnician Relationship Specialty Start Date End Date Radha Acuna MD [address] [place] [address] [place] [address] PCP - General 08/07/11 documented as of this encounter
--- OUTSIDE RECORDS SUMMARY | 2024-04-07 16:38 | XMS_ITS | Encounter Summary ---
Author Organization [facility] [place] [address] Care Team Providers Care Shuttle Spotter Name Role Phone Radha Acuna MD Primary Care Provider +1- [phone] Reason for Visit * Reason Comments Skin Check Encounter Details Date Type Department Care Team (Late st Contact Info) Description 05/22/2019 2:00 PM EST Office Visit Dermatology at [address] [place] [address] Brian Naranjo MD [address] [facility] A DERMATOLOGY [place], [place] [id number] Vitiligo; Dermatofibroma; Nevus Social History Tobacco Use Types Packs/Day Years [...] Progress Notes * Brian Naranjo MD - 05/22/2019 2:00 PM EST Problem: 1. Vitiligo 2. Chronic urticaria 3. Skin lesions of concern Trina follows up and unfortunately in 2017 was diagnosed with breast CA. She had a bilateral mastectomy with reconstruction. She had chemotherapy and a port was placed during this time. She is is doingwell currently. As a postsurgical complication of her port removal she had a hypertrophic scar on the left upper anterior chest and her general surgeon excised the scar and then reclosed it and utilized a Kenalog injection to try to prevent recurrent hypertrophic scarring. Unfortunately the she hadsome steroid atrophy and development of the obvious telangiectasias within this affected area. She still has her light unit at home, 5to1 model 2800 narrowband UVB light unit that shecan use for her vitiligo. For her type II skin type, I would recommend as in the past using 1 minute and 12 seconds on a daily basis, to each side, advancing each week by 8 seconds up to a goal of 4 minutes. She noted some lesions on her leg. She concern about irregular coloration of her lips. Physical examination reveals a pale 38-year-old woman who has vitiliginous patches still faintly visible widely on the arms the legs the upper eye lids abdomen and legs. She has dermatofibromas 2 on the right thigh and one on the left. She has steroidal atrophy with prominent telangiectasias on theleft upper anterior chest. She has no active urticaria at present. She has benign nevi on her back.She has some diffuse variation of the erythematous coloration of her lips, somewhat more prominent on the upper than the lower lips. Assessment plan: Vitiligo 1. Restart narrowband UVB light using her unit as described above Dermatofibromas of thighs 1. These are symptomatic and itchy 2. LN2 x2 applied each of the 3 sites Telangiectasias left upper anterior chest around port removal site, as a complication of steroidal injection there by surgery 1. Referral to [facility] Dr. Shannon Dorman for potential laser treatment of these Chronic urticaria 1. Continue symptomatic therapy with Zyrtec 10 mg repeat 1 p.o. twice daily this seems to work okayfor her. 2. Patient has and appointment to be seen by allergy at [facility] Benign nevi back 1. Patient reassured 2. Note 1/2-hour spent patient more than half which was spent counseling Lip coloration 1. Appears to be normal variant 2. Avoid lipsticks with sunscreen that may cause chapping peeling irritant dermatitis CC: MD Shannon Bobby MD documented in this encounter Plan of Treatment Upcoming Encounters Date Type Department Care Team (Late st Contact Info) Description 06/30/2024 4:30 PM EDT Office Visit H[place]ology [place] [address] Shilpi Gallegos MD [facility] DR [place] [address] documented as of this encounter Visit Diagnoses Diagnosis Vitiligo Dermatofibroma Benign neoplasm of skin, site unspecified Nevus Benign neoplasm of skin, site unspecified documented in this encounter Care Teams Shuttle Spotter Relationship Specialty Start Date End Date Radha Acuna MD [address] [place] [address] [place] [address] PCP - General 08/07/11 documented as of this encounter
--- OUTSIDE RECORDS SUMMARY | 2024-04-07 16:38 | XMS_ITS | Encounter Summary ---
Author Organization [facility] [place] [address] Care Team Providers Care Legal Billing Specialist Name Role Phone Radha Acuna MD Primary Care Provider +1- [phone] Reason for Visit * Reason Onset Date Comments Medication Refill 07/02/2022 Encounter Details Date Type Department Care Team (Late st Contact Info) Description 07/02/2022 Refill Hematology [place] [phone] Aisha Malcolm PA Social History Tobacco Use Types Packs/Day Years [...] EDT Office Visit Hematology [place] [address] Shilpi Gallegos MD [facility] [place] [address] documented as of this encounter Visit Diagnoses Not on filedocumented in this encounter Care Teams Legal Billing Specialist Relationship Specialty Start Date End Date Radha Acuna MD [address] [place] [address] [place] [address] PCP - General 08/07/11 documented as of this encounter
--- OUTSIDE RECORDS SUMMARY | 2024-04-07 16:38 | XMS_ITS | Encounter Summary ---
[place] [address] Care Team Providers Care Veterinarian Poultry Name Role Phone Radha Acuna MD Primary Care Provider +1- [phone] Encounter Details Date Type Department Care Team (Late st Contact Info) Description 08/23/2018 10:15 AM EDT Office [place] [address] Mandie Gonzalez, SPORTS PHYSICAL THERAPIST History of breast cancer Social History Tobacco Use Types Packs/Day Years [...] as of this encounter Progress Notes * Mandie Gonzalez, SPORTS PHYSICAL THERAPIST - 08/23/2018 10:15 AM EDT rTina Frances??is a 38 y.o.??pt of Dr Negro who returns today for surgical follow up. On 07/2016, she noted a tender right breast lump without skin changes or nipple discharge. ??On 09/11/16, she underwent a mammogram followed by ultrasound showing 2 right breast masses and right axilla node 1.2cm. ??Biopsy showed invasive ductal carcinoma, grade 2 with DCIS. ??HER2+ (FISH HER2:CEP-17 = 10), ER+/NE+ (11-90%). ??A right axilla node biopsy was negative. ? On 09/17/16, a bilateral breast MRI showed the left breast was normal. The right, upper, inner, breast had 2 identifiable masses, 1cm and 1.3cm without chest wall invasion. ??However there were both enhancing and non-enhancing masses and the total extent of the disease spanned 7cm. ??No axillary nodes were seen. ??Labs with a CBC and CMP were normal.. Pet scan negative for metastatic disease. ?? Neoadjuvant regimen: TCH-P x 6 cycles. She had a few week delay to surgery given thrombocytopenia. Negative for BRCA mutation. She then underwent bilateral mastectomy with excision of right nipple. She had a sentinel node excision at the time of surgery and tissue photographic engineer followed by implant based reconstruction. She was seen by Dr Zurita earlier today and plans to have her chemo port scar revised and possible fat grafting. She still feels a prominent rib on the right above her implant. Partial path response with residual foci all < 1mm and dcis. 0/8 nodes No LVI There were 2 distinct areas of tumor and no intervening treatment effect. She is on tamoxifen and receiving herceptin to complete one year and endocrine therapy.Followed by Dr Gallegos. On exam she looks well in NAD. Chest wall with well healed incisions, implants in place.No rashes or nodules. No axillary adenopathy. Prominent rib on right above implant.No masses. Assessment/Plan: Normal chest wall exam,no evidence of local or regional recurrance. RTC in a year for a CBE or sooner if needed. I told Trina that I will be retiring in February and that her next follow up surgical appointment will be with a new provider.She agrees. She agrees. documented in this encounter Plan of Treatment Upcoming Encounters Date Type Department Care Team (Late st Contact Info) Description 06/30/2024 4:30 PM EDT Office Visit Hematology [place] [address] Shilpi Gallegos MD [facility] [place] [address] documented as of this encounter Visit Diagnoses Diagnosis History of breast cancer Personal history of malignant neoplasm of breast documented in this encounter Care Teams Veterinarian Poultry Relationship Specialty Start Date End Date Radha Acuna MD [address] [place] [address] [place] [address] PCP - General 08/07/11 documented as of this encounter
--- OUTSIDE RECORDS SUMMARY | 2024-04-07 16:38 | XMS_ITS | Encounter Summary ---
Author Organization [facility] [place] [address] Care Team Providers Care Termite Technician Name Role Phone Radha Acuna MD Primary Care Provider +1- [phone] Encounter Details Date Type Department Care Team (Late st Contact Info) Description 10/28/2020 Orders Only Hematology [place] [address] Shilpi Gallegos MD [facility] DR [place] [address] Invasive ductal carcinoma of right breast; Fever [...] EDT Office Visit Hematology [place] [phone] Shilpi Gallegos MD [facility] DR [place] [address] (work) documented as of this encounter Results * Request for 2nd [...] who have questions please contact the health patient care director that requested your imaging first. ? Electronically signed by: Chad Malone MD, [facility] ([phone]), at 10/29/2020 11:05 AM Narrative 10/29/2020 11:05 AM EDT EXAMINATION: REQUEST FOR 2ND READ NUCLEAR MEDICINE CLINICAL HISTORY: please review outside bone scan; Sending Institution [facility]; Date of exam [id number]; I believe a reinterpretation of this exam may alter care of Patient. Yes TECHNIQUE: A bone scan performed at [facility] is submitted for review. Accompanying paperwork [...] HISTORY: please review outside [facility] scan[facility] Date of exam [id number]; I believe a reinterpretation ofthis exam may alter care of Patient. Yes TECHNIQUE: A bone scan performed at [facility] is submitted for review. Accompanying paperwork [...] patients who have questions please contactthe health patient care director that requested your imaging first. Shilpi Gallegos MD IMG OUTSIDE INTERPR ETATION ORDERABLES documented in this encounter Visit Diagnoses Diagnosis Invasive ductal carcinoma of right breast Fever of unknown origin (FUO) Fever, unspecified Invasive ductal carcinoma of right breast Fever of unknown origin (FUO) Fever, unspecified documented in this encounter Care Teams Termite Technician Relationship Specialty Start Date End Date Radha Acuna MD [address] [place] [address] [place] [address] PCP - General 08/07/11 documented as of this encounter
--- OUTSIDE RECORDS SUMMARY | 2024-04-07 16:38 | XMS_ITS | Encounter Summary ---
[place] [address] Care Team Providers Care Glass Bulb Machine Adjuster Name Role Phone Radha Acuna MD Primary Care Provider +1- [phone] Reason for Visit * Reason Onset Date Comments Medication Refill 06/24/2020 Medication Refill 06/25/2020 Encounter Details Date Type Department Care Team (Late st Contact Info) Description 06/24/2020 Refill Hematology [place] [address] Laura Seaman RN Social History Tobacco Use Types Packs/Day [...] Telephone Encounter - Laura Seaman RN - 06/24/2020 1:01 PM EDT Message received from [facility]: Received request for refill of diflucan for recurrent yeast infections. Per review of medical record, refill is appropriate. Script prepared and sent to provider for review, signature and escribe. documented in this encounter Plan of Treatment Upcoming Encounters Date Type Department Care Team (Late st Contact Info) Description 06/30/2024 4:30 PM EDT Office Visit Hematology [place] [address] Shilpi Gallegos MD [facility] [place] [address] documented as of this encounter Visit Diagnoses Not on filedocumented in this encounter Care Teams Glass Bulb Machine Adjuster Relationship Specialty Start Date End Date Radha Acuna MD [address] [place] [address] [place] [address] PCP - General 08/07/11 documented as of this encounter
--- OUTSIDE RECORDS SUMMARY | 2024-04-07 16:38 | XMS_ITS | Encounter Summary ---
[place] [address] Care Team Providers Care Etymology Professor Name Role Phone Radha Acuna MD Primary Care Provider +1- [phone] Encounter Details Date Type Department Care Team (Late st Contact Info) Description 09/12/2019 Telephone [place] [address] Bella Guzmán Social History Tobacco Use Types Packs/Day Years [...] encounter Miscellaneous Notes * Telephone Encounter - Bella Guzmán - 09/12/2019 4:00 PM EDT Patient is due for a follow up exam in General Surgery in September, I called her to schedule, but she is wondering if it's necessary to be seen by General Surgery. She is s/p bilateral mastectomy with Breast reconstruction and is scheduled with Dr Gallegos in Medical Oncolgoy and Dr Zurita in Plastic Surgery on 09/18. I told her I would check with Dr Gallegos and get back to her documented in this encounter Plan of Treatment Upcoming Encounters Date Type Department Care Team (Late st Contact Info) Description 06/30/2024 4:30 PM EDT Office Visit Hematology [place] [address] Shilpi Gallegos MD [facility] DR [place] [address] documented as of this encounter Visit Diagnoses Not on filedocumented in this encounter Care Teams Etymology Professor Relationship Specialty Start Date End Date Radha Acuna MD [address] [place] [address] [place] [address] PCP - General 08/07/11 documented as of this encounter
--- OUTSIDE RECORDS SUMMARY | 2024-04-07 16:38 | XMS_ITS | Encounter Summary ---
Author Organization [facility] [place] [address] Care Team Providers Care Security Lead Name Role Phone Radha Acuna MD Primary Care Provider +1- [phone] Encounter Details Date Type Department Care Team (Late st Contact Info) Description 02/27/2019 Ancillary Procedure Radiology Library at [facility] [place] [id number] Radha Acuna MD [address] [place] [address] [place] [address] Social History Tobacco Use Types Packs/Day Years [...] EDT Office Visit Hematology [place] [phone] Shilpi Gallegos MD [facility] HEMATOLOGY [place] [address] documented as of this encounter Procedures Procedure Name Priority Date/Time Associated Diagnosis Comments FILM LIBRARY STORAGE ONLY ULTRASOUND STUDY Routine 02/27/2019 12:00 AM EST documented in this encounter Results * Film Library- Storage Only Ultrasound Study (02/27/2019 12:00 AM EST) Narrative [facility] - 02/28/2019 10:50 AM EST This exam is auto-finalizing. It's purpose is for storage only. Radha Acuna MD IMG FILM LIBRARY O RDERABLES [place], [place] documented in this encounter Visit Diagnoses Not on filedocumented in this encounter Care Teams Security Lead Relationship Specialty Start Date End Date Radha Acuna MD [address] [place] [address] [place] [address] PCP - General 08/07/11 documented as of this encounter
--- OUTSIDE RECORDS SUMMARY | 2024-04-07 16:38 | XMS_ITS | Encounter Summary ---
[place] [address] Care Team Providers Care Ground Crew Supervisor Name Role Phone Radha Acuna MD Primary Care Provider +1- [phone] Reason for Visit * Reason Comments Medication Refill Encounter Details Date Type Department Care Team (Late st Contact Info) Description 02/21/2021 Refill Hematology [place] [address] Candelaria Pepper PA Social History Tobacco Use Types Packs/Day [...] Telephone Encounter - Laura Seaman RN - 02/21/2021 9:14 AM EST Received request via Br[facility] for refill of tamoxifen. Per review of medical record- started April 2017. Per review of medical record, refill is appropriate. Last prescribed 03/19/21 Script prepared and sent to provider for review, signature and escribe. documented in this encounter Plan of Treatment Upcoming Encounters Date Type Department Care Team (Late st Contact Info) Description 06/30/2024 4:30 PM EDT Office Visit Hematology [place] [address] Shilpi Gallegos MD [facility] [address] [place] [address] documented as of this encounter Visit Diagnoses Not on filedocumented in this encounter Care Teams Ground Crew Supervisor Relationship Specialty Start Date End Date Radha Acuna MD [address] [place] [address] [place] [address] PCP - General 08/07/11 documented as of this encounter
--- OUTSIDE RECORDS SUMMARY | 2024-04-07 16:38 | XMS_ITS | Encounter Summary ---
Author Organization [facility] [place] [place] [address] Care Team Providers Care Marker Assembler Name Role Phone Radha Acuna MD Primary Care Provider +1- [phone] Encounter Details Date Type Department Care Team (Latest Contact Info) Description 04/20/2022 Travel Social History Tobacco Use Types Packs/Day [...] EDT Office Visit Hematology [place] [address] Shilpi Gallegos MD [facility] [place] [address] documented as of this encounter Visit Diagnoses Not on filedocumented in this encounter Care Teams Marker Assembler Relationship Specialty Start Date End Date Radha Acuna MD [address] [place] [address] [address] [place] [id number] PCP - General 08/07/11 documented as of this encounter
--- OUTSIDE RECORDS SUMMARY | 2024-04-07 16:38 | XMS_ITS | Encounter Summary ---
Author Organization [facility] Include [address] [facility] [address] Care Team Providers Care Relief Captain Name Role Phone Radha Acuna MD Primary Care Provider +1- [phone] Encounter Details Date Type Department Care Team (Latest Contact Info) Description 04/15/2020 1:00 PM EST TH Visit (TeleHealth) [place] [address] Frantz Martínez MD [facility] [place] [address] S/P breast reconstruction, bilateral Social History Tobacco [...] as of this encounter Progress Notes * Frantz Martínez MD - 04/15/2020 1:00 PM EST Plastic Surgery Follow Up Note Reason for visit: F/U status post procedure Date of surgery: 06/09/17 Procedure(s): Tissue grid caster exchange with permanent prothesis, capsulotomies ([place] SRM+ 275cc), Complications: none reported Date of surgery: 03/15/17 Procedure(s): Bilateral breast reconstruction with tissue expanders (300cc Artoura High Profile filled to 100 ml intra op) . (Right mastectomy weight 240 grams) Complications: None reported Chemotherapy: Completed one course in January. Began Herceptin Radiation: Not indicated. Symmetry surgery: n/a HPI: Patient seen today via a telehealth home visit. Reports that she is doing well. She is interested in removing a nevus on her back. The lesion has been present for many months and has gradually increased in size. She denies rupture, bleeding or discharge from the lesion and reports no other lesions. Recently she has lost weight, has had two children and is interested in addressing her abdomen. In regards to her breast reconstruction she is happy with her results, continue's regular activities. Examination: Via video Patient is alert, conversant, comfortable, ambulating Well healed incisions Approximately 1 cm lesion on left shoulder Appears to be irregular on video Patient notes elevation of nevus, cannot appreciate elevation of nevus Patient notes color to be changing Patient reports implants are soft, no concerns Impression: Trina Frances is a 39 y.o. female who was seen today via telehealth. Presents with a left shoulder lesion. She notes the area has changed in color and is elevated. I discussed the natureof the lesion with the patient, educating them about the problems and the risks of excision including infection, scar, bleeding, asymmetry, deformity, positive margins and the need for further surgery. Explained that the scar would be 2.5 times the length of the lesion's width. There is a possibility that she may experience a raised scar as she previously has noted this result in healing of the port scar on her chest. Specimens will be sent to pathology. Following our conversation Trina would like to proceed with excision. At a breast reconstruction standpoint she is doing well, continues regular activities without limitations. During today's visit she would like to discuss addressing her abdomen and excess skin following and weight loss. We will plan to provide information, complete an exam and further discuss possible corrections. Plan: Schedule MSO procedure Discuss abdomen at next visit MNS Grid: Procedure: Excision of left posterior shoulder lesion Timeframe: elective Time allotted: 60 mins CPT: 09595 Follow up: 7 days with BENJAMIN Roddy, Latia Lazaro, have preformed the documentation for this encounter in the presence of and acting as a scribe for Frantz Martínez MD I performed the services which were documented by the scribe, and I agree with the accuracy of the documentation in this encounter. FRANTZ MARTÍNEZ MD DOCUMENTATION FOR TELEMEDICINE: This patient is under my care. I had a face to face encounter that meets the physician face to faceencounter requirements with this patient today, I performed the services in this encounter. FRANTZ MARTÍNEZ MD documented in this encounter Plan of Treatment Upcoming Encounters Date Type Department Care Team (Late st Contact Info) Description 06/30/2024 4:30 PM EDT Office Visit Hematology [place] [address] Shilpi Gallegos MD [facility] DR [place] [address] documented as of this encounter Visit Diagnoses Diagnosis S/P breast reconstruction, bilateral Breast replaced by other means documented in this encounter Care Teams Relief Captain Relationship Specialty Start Date End Date Radha Acuna MD [address] [place] [address] [place] [address] PCP - General 08/07/11 documented as of this encounter
--- OUTSIDE RECORDS SUMMARY | 2024-04-07 16:38 | XMS_ITS | Encounter Summary ---
Author Organization [facility] Address [facility] [place] [address] Care Team Providers Care Drive Away Driver Name Role Phone Radha Acuna MD Primary Care Provider +1- [phone] Encounter Details Date Type Department Care Team (Latest Contact Info) Description 09/19/2019 11:19 AM EDT - 09/19/2019 11:59 PM EDT Hospital [place] [address] Shilpi Gallegos MD [facility] [place] [address] Invasive ductal carcinoma of right breast Discharge Disposition: Home Social History Tobacco Use Types Packs/Day Years [...] PM EDT documented as of this encounter Medications at Time of Discharge Medication Sig Dispensed Refills Start Date End Date cetirizine (ZyrTEC) 10 mg Tablet Take 1 tablet by mouth 2 times daily. 180 tablet 3 06/06/2019 famotidine (Pepcid) 20 mg Tablet Take 1 tablet by mouth 2 times daily. 60 tablet 11 06/06/2019 acetaminophen (TYLENOL) 500 mg Tablet Take 2 tablets by mouth every 8 hours. 30 tablet 03/16/2017 LACTOBACILLUS ACIDOPHILUS (PROBIOTIC ORAL) Take by mouth daily. multivitamin (THERAGRAN) TabletIndications:has 500mg of calcium and 1600iu of Vit D Take 1 tablet by mouth daily. Indications: has 500mg of calcium and 1600iu of Vit D emollient combination no.60 (Celacyn) Gel with PumpIndications:Hyper trophic scar of skin Apply 1 Application topically 2 times daily. 28 g 3 06/21/2019 03/27/2022 fluconazole (Diflucan) 100 mg Tablet 05/13/2019 06/24/2020 tamoxifen (NOLVADEX) 20 mg Tablet Take 1 tablet by mouth daily. 90 tablet 3 03/02/2019 03/19/2020 tretinoin (RETIN-A) 0.025 % Cream apply to affected area at bedtime 0 10/25/2017 03/27/2022 documented as of this encounter Plan of Treatment Upcoming Encounters Date Type Department Care Team (Late st Contact Info) Description 06/30/2024 4:30 PM EDT Office Visit Hematology [place] [address] Shilpi Gallegos MD [facility] DR [place]AT[place] [address] documented as of this encounter Procedures Procedure Name Priority Date/Time Associated Diagnosis Comments MAMMO US AXILLA RIGHT Routine 09/19/2019 11:54 AM EDT Invasive ductal carcinoma of right breast documented in this encounter Results * Mammo US Axilla Right (09/19/2019 11:54 AM EDT) Anatomical Region Laterality Modality Breast Right Mammography Impressions 09/19/2019 12:06 PM EDT Morphologically normal axillary lymph node. BI-RADS Category 2: Benign Findings * ??Regular screening mammograms starting between age 40 and 50 reduces the risk of from breast cancer. * ??All screening tests have both risks and benefits. These risks and benefits should be assessed for each individual patient through discussion with their provider to determine their preferred breast cancer screening schedule. * ??Women should report any breast changes to a health care provider right away. * ??Some women, because of their family history, a genetic tendency, or other factors, should be screened with annual breast MRI as well as with mammograms. (The number of women who fall into this category is very small). Patients and health care providers should discuss each patients history to decide if earlier screening and/or breast MRI are appropriate. * ??Screening should continue as long as a woman is in good health and is expected to live 10 years or longer. * ??Screening mammography may not detect 10-15% of breast cancers. Thank you for letting us participate in the care of this patient. For questions regarding this report, please contact the number below. ? Narrative 09/19/2019 12:06 PM EDT EXAMINATION: MAMMO US AXILLA RIGHT CLINICAL HISTORY: hx right breast cancer 2017 TECHNIQUE: High-resolution ultrasound was performed of the right axilla COMPARISON: None FINDINGS: Sonographically there is a morphologically normal right axillary lymph node with smooth nonthickened cortex the area of clinical concern 15 cm from the nipple. The lymph node is 1.4 cm in maximal length. Shilpi Gallegos MD IMG MAMMO ORDERABLE S documented in this encounter Visit Diagnoses Diagnosis Invasive ductal carcinoma of right breast documented in this encounter Care Teams Drive Away Driver Relationship Specialty Start Date End Date Radha Acuna MD [address] [place] [address] [place] [address] PCP - General 08/07/11 documented as of this encounter
--- OUTSIDE RECORDS SUMMARY | 2024-04-07 16:38 | XMS_ITS | Encounter Summary ---
Author Organization [facility] [place] [address] Care Team Providers Care Market Research Interviewer Name Role Phone Rahda Acuna MD Primary Care Provider +1- [phone] Reason for Visit * Reason Comments Medication Refill Encounter Details Date Type Department Care Team (Late st Contact Info) Description 04/30/2022 Refill Dermatology at [place] [address] [place] [address] Brian Naranjo MD [address] [facility] [place] [address] Social History Tobacco Use Types Packs/Day Years [...] EDT Office Visit Hematology [place] [address] Shilpi Gallgeos MD [facility] DR HEMATOLOGY [place] [address] documented as of this encounter Visit Diagnoses Not on filedocumented in this encounter Care Teams Market Research Interviewer Relationship Specialty Start Date End Date Radha Acuna MD [address] [place] [address] [place] [address] PCP - General 08/07/11 documented as of this encounter
--- OUTSIDE RECORDS SUMMARY | 2024-04-07 16:38 | XMS_ITS | Encounter Summary ---
Author Organization [facility] [place] [address] Care Team Providers Care Casino Cage Supervisor Name Role Phone Radha Acuna MD Primary Care Provider [phone]- [phone] Reason for Visit * Reason Comments Follow-up Encounter Details Date Type Department Care Team (Late st Contact Info) Description 07/10/2022 3:00 PM EDT Office Visit [place] [address] Shilpi Gallegos MD [facility] [address] HEMATOLOGY [place] [address] Invasive ductal carcinoma of right breast; Medication management Social History Tobacco Use Types Packs/Day Years [...] Sign Reading Time Taken Comments Blood Pressure 125/91 07/10/2022 2:54 PM EDT Pulse 67 07/10/2022 2:54 PM EDT Temperature 36.3 ??C (97.3 ??F) 07/10/2022 2:54 PM ED T Respiratory Rate 17 07/10/2022 2:54 PM EDT Oxygen Saturation 99% 07/10/2022 2:54 PM EDT Inhaled Oxygen Concentration - - Weight 50 kg (110 lb 3.7 oz) 07/10/2022 2:54 PM EDT Height 152.4 cm (5') 07/10/2022 2:54 PM EDT Body Mass Index 21.53 07/10/2022 2:54 PM EDT documented in this encounter Progress Notes * Shilpi Gallegos MD - 07/10/2022 3:00 PM EDT Patient ID:??Trina Frances??is a 42 y.o.??female. ?? Cc: breast cancer? Interval history: Trina is doing well. 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 Kids are doing well. Menses are irregular, monthly for a while, then none for months. No heavy or persistent bleeding. Memory stable, not bothering her as much. No weightloss, nausea, vomiting, diarrhea or constipation.??+ night sweats sometimes, disrupting sleep but not every night. + exercise with a first aid trainer once/ week and a few times a week on her own. No infectious work up was done, but no hx of tick bites or other infections. ? HPI Clinical Right breast cancer, dx at age 36. overlapping sites, clinical [id number] ER/CA + HER2 ??+ ratio 10.0 ?? Right breast axillary ultrasound biopsy negative PET scan negative ? Superior cervical node abnormality, biopsy 10/02/16 benign. BRCA panel testing negative for germline mutations. ?In 07/2016, she noted a tender right breast lump without skin changes or nipple discharge. 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 ??On 09/11/16, she underwent a mammogram followed by ultrasound showing 2 right breast masses and right axilla node 1.2cm. ??Biopsy showed invasive ductal carcinoma,grade 2 with DCIS. ??HER2+ (FISH HER2:CEP-17 = 10), ER+/CA+ (11-90%). ??A right axilla node biopsy was negative. ?? [...] ??Labs with a CBC and CMP were normal. ??She saw Dr. Negro from surgical oncology who recommended a mastectomy after neoadjuvant chemotherapy. ?? Neoadjuvant regimen: ??TCH-P x 6 cycles ?? Cycle 1-6 TCH-P 10/05/16 - 01/29/17 Surgery delayed due to persistent grade 3 thrombocytopenia, no transfusions required. ?? Surgery 03/15/17, bilateral mastectomies with reconstruction, ??with near complete response to NAC. 0/8 lymph nodes without evidence of treatment effect; Tumor bed approx 1.5 cm with complete response except for focal residual micro- invasive IDCA. Focal DCIS high grade, no LVI. ?? [id number] ?? 09/11/16- MAMMO BREAST US LIMITED BILATERAL, MAMMO 2D DIGITAL BILATERAL DIAGNOSTIC WITH CAD. ??FINDINGS: The breasts are heterogeneously dense, which may obscure small masses. There are spiculated masses and pleomorphic microcalcifications identified in the right upper inner quadrant extending to thenipple anteriorly and suspected towards the chest wall [...] performed high-resolution ultrasound followingthe technologist. In the rightbreast there are highly suspicious masses. Sonographically the 2 dominant masses are located at the2:00 radian 2 cm from the nipple and 3:00 radian 4 cm from the nipple. No sonographic abnormality is seen in the left breast. In the right axilla there is a cortical excrescence of 1 of the axillary lymph nodes. The lymph node measures 1.2 cm in diameter. The cortex is thickened to 0.3 cm. IMPRESSION. ??Extensive disease in the right breast involving the 11 through 3:00 radii and extending from the posterior aspect potentially involving the chest wall, anteriorly to the nipple. Possible right axillary adenopathy. ??Left breast without evidence of disease. ?? 09/11/16- RIGHT BREAST ULTRASOUND GUIDED AUTOMATED CORE BIOPSY??x2, ??lesion #1 is a suspicious mass at the 3:00 radian 2 cm from the nipple. ??A - ??Needle biopsies: ??Right breast lesion 1?Diagnosis: ?Invasive ductal carcinoma, intermediate grade. Ductal carcinoma in-situ, high grade with comedo necrosis. ER immunoreactivity: ??Positive 11-90% cancer cells with immunostaining, Stain Intensity Moderate. ??CA immunoreactivity: ??Positive 11-90% cancer cells with immunostaining, Stain Intensity Moderate to focal Strong. ??[id number] FISH is amplified. ?? B - ??Needle biopsies: ??Right axillary node??ultrasound biopsy. ?Diagnosis: Benign node fragments. ?? 09/17/16- BILATERAL BREAST MRI.?LEFT Breast: Confluent tissue is noted in the in the left upper outer quadrant with uninterrupted ductal structures, favoring physiologic variation/fibrocystic change. ??RIGHT Breast:There are enhancing masses and nonmass enhancement extending from 1:00 radian superiorly through the 3:00 radian inferiorly. There are 2 dominant components, the relative more inferior of which was sampled and confirmed to represent malignancy. The sampled lesion, lesion #1, measures 1 cm and the dominant mass in the right breast 2:00 (lesion #2) radian measures 1.3 cm. The extentof disease is more sensitively depicted in the mammogram which depicts calcifications extending to the nipple. The superior to inferior extent of disease is 7 cm. Ductal carcinoma in situ component is not well depicted at MRI. However, the MRI does exclude any evidence of chest wall invasion. :Specific features of the biopsied right breast lesion(s) is/are as follows: RIGHT BREAST LESION 1: ??1 cm Mass. ??Right medial breast ??3 O'Clock 3 cm from the nipple by MRI. ??Mass Shape: Round Margins: Not circumscribed - Spiculated Enhancement: Homogenous Delayed phase: Plateau. ??Non mass enhancement: Distribution: Segmental Enhancement: Initial upslope: Slow. ??Delayed phase: Progressive. ??LymphNode Basins/Other: There is no evidence of internal mammary or axillary adenopathy. Specifically the lymph node basin of the right axilla has been surveyed by ultrasound with core biopsy sampling of o ne of the dominant axillary lymph nodes yielding no evidence of malignancy. No significant abnormalities are seen in the chest wall or skin. ??IMPRESSION MRI demonstrates extensive disease spanning 7cm superior to inferior limited to the right breast upper inner quadrant without evidence of chest wall invasion. The anterior to posterior disease is best depicted mammographically. No evidence of axillary adenopathy. ?? 09/22/16- MAMMO ULTRASOUND OF THE NECK.?FINDINGS: ??There is an oval homogeneously hypoechoic circumscribed solid mass demonstrating internal vascularity at the superior posterior cervical region measuring 1.6 cm in maximal diameter. The cortex measures 0.2 cm in thickness without cortical excrescence. IMPRESSION Probable lymph node at base of skull/superior cervical region. This has been referred to interventional radiology for consideration of biopsy. ?? 09/29/16- PET-CT STANDARD SKULL BASE TO MID-THIGH. ??HEAD/NECK: Normal variant brown fat activity inthe bilateral supraclavicular regions. CT visualized partially imaged air-fluid level is noted in ahypoplastic appearing left maxillary sinus. ??CHEST: Two hypermetabolic lesions in the medial rightbreast corresponds to patient's known diagnosis of invasive ductal carcinoma. There is a hypermetabolic approximately 6 x 3 mm right axillary lymph node (axial images 35, 36), adjacent to a surgical clip. Additional nonpathologically enlarged less intensely hypermetabolic right axillary lymph nodesare noted. Foci of activity seen in the left axilla corresponds to normal variant brown fat. Additional small hypermetabolic focus seen in the left axilla seen on axial images 42-43, better appreciated on the coronal images, appears to correspond to a small subcentimeter lymph node on CT. ??Normal activity in all remaining soft tissue regions. A left-sided Mediport with tip terminating in the right atrium. ??ABDOMEN/PELVIS: Hypermetabolic 5 mm in short axis distal right external iliac lymph node (axial images 168-169). Activity seen within the endometrium is likely physiologic. Focus of activity in the posterior right hemipelvis (axial image 164) may represent functioning ovarian tissue. Incidental CT visualized findings: punctate nonobstructing right renal calculus and suture material along the cecum consistent with history of prior appendectomy. ??SKELETON/EXTREMITIES: Normal marrow activity in all regions of the axial and visualized appendicular skeleton. Indeterminate CT visualized tiny sclerotic foci in the left femoral head and posterior left acetabulum. ??IMPRESSION 1. ??Two FDG avid medial right breast lesions, corresponding to patient's known breast carcinoma. 2. ??Small h ypermetabolic right axillary lymph nodes, left axillary lymph node, and distal right external iliaclymph node, indeterminate for reactive versus jose enrique metastases. 3. ??Hypermetabolic activity in theright hemipelvis, may represent functioning ovarian tissue. Anatomic evaluation is limited on thesenoncontrast- enhanced CT images. For complete evaluation, pelvic ultrasound is recommended. 4. ??Indeterminate CT visualized tiny sclerotic foci in the left femoral head and posterior left acetabulum,likely below the sensitivity of PET. ?? 10/02/16- IR BIOPSY of right cervical neck lymph node. ??DIAGNOSIS Negative for Malignancy ?? 10/27/16- Normal transvaginal pelvic sonogram. Specifically, normal right ovary. ?? 10/05/16 - 01/29/17- Cycle 1-6 TCH-P? 03/15/17- DIAGNOSIS. ?Left breast, skin and nipple-sparing mastectomy: Benign breast tissue. ??Right Skin-sparing mastectomy: ??Invasive ductal carcinoma, Only microinvasion present (not graded). ??DCIS is present, ??Lymph-Vascular Invasion Not identified, Margins uninvolved by invasive carcinoma(closest is to Treated DCIS, 3 mm) Lymph Nodes ?Bryant Lymph Nodes: ?? Bryant lymph node biopsy performed ?Number of Bryant Nodes Examined: ?8 ?Lymph Node Involvement: ?? None identified ?? In summary, Trina Frances is a 36 yo woman with right breast IDC, ER/CA+, [id number] ??Initial imaging suggested a disease process spanning ~7cm (though MRI and PET scan shows 2 discrete lesions measuring ~13mm and 1 cm). ??She was treated with neoadjuvant chemotherapy followed by mastectomy with residual microinvastion and 0 of 8 LNs involved. ??pT1mi ??pN0? Review of Systems Constitutional:??Negative.?No regular exercise program, not a fan.? HENT:??Negative. ?? Eyes:??Negative. ?? Respiratory:??Negative. ?? Cardiovascular:??Negative. ?? Gastrointestinal:??Negative. ?? Endocrine:??Negative. ?? Genitourinary:??Negative. ?? Musculoskeletal:??Negative. ?? Skin:??Negative.?Allergic/Immunologic:??Negative. ?? Neurological:??Negative. ?? Hematological:??Negative. ?? Psychiatric/Behavioral:??Negative.? Objective: Physical Exam Vitals signs??and nursing note??reviewed. Last value Range last 8 hrs Temperature Temp: 36.3 ??C (97.3 ??F) Temp: [36.3 ??C (97.3 ??F)] Heart Rate Heart Rate: 67 Heart Rate: [67] Blood Pressure BP: (!) 125/91 BP: (125)/(91) Respiratory Rate Resp: 17 Resp: [17] SpO2 SpO2: 99 % SpO2: [99 %] HENT: ?Head: Normocephalic. ?Right Ear: External ear??normal. ?Left Ear: External ear??normal. ?Nose: Nose normal. ?Mouth/Throat: ?Mouth: Mucous membranes are moist. Eyes: ?Conjunctiva/sclera: Conjunctivae normal. Neck: ?Musculoskeletal: Normal range of motion. Cardiovascular: ?Rate and Rhythm: Normal rate. ?Pulses: Normal pulses. Pulmonary: ?Effort: Pulmonary effort is normal. No??retractions. Chest: ?Chest wall: No mass,??lacerations,??deformity,??swelling,??tenderness,??crepitus??or edema. Abdominal: ?General: Abdomen is flat. Bowel sounds are??normal. Musculoskeletal:??Normal range of motion. Skin: ?General: Skin is warm??and dry. Neurological: ?General: No focal deficit??present. ?Mental Status: She is alert. Psychiatric: ?Mood and Affect: Mood??normal. ?Behavior: Behavior??normal. ?Thought Content: Thought content??normal. ?Judgment: Judgment??normal. ? Recent Results (from the past 24 hour(s)) Comprehensive metabolic panel (non-fasting) Result Value Ref Range Glucose Lvl 87 65 - 199 mg/dL BUN 23 (H) 8 - 18 mg/dL Creatinine 0.79 0.70 - 1.20 mg/dL Sodium 138 135 - 145 mmol/L Potassium 3.9 3.5 - 5.0 mmol/L Chloride 103 98 - 107 mmol/L CO2 24 22 - 31 mmol/L Anion Gap 11 5 - 15 mmol/L Calcium 9.0 8.5 - 10.5 mg/dL Total Protein 7.0 6.1 - 8.0 g/dL Albumin 4.6 3.2 - 5.2 g/dL AST 27 0 - 30 unit/L ALT 16 0 - 30 unit/L Alk Phos 61 35 - 105 unit/L Total Bilirubin 0.2 0.2 - 1.3 mg/dL Estimated GFR 97 >=60 mL/min/1.73 m?? Lipid Panel (Reflex Direct LDL) Result Value Ref Range Chol, Total 167 mg/dL Triglycerides 45 mg/dL HDL 90 mg/dL LDL Cholesterol 68 mg/dL Chol/HDL Ratio 1.9 ratio Lipid Interpretation See Note Vitamin D, 25-Hydroxy Result Value Ref Range 25-OH Vit D Total 71 21 - 100 ng/mL 25-OH Vit D Interp Sufficient Hemogram Result Value Ref Range WBC 9.4 4.0 - 9.5 x10(3)/mcL RBC 4.42 4.00 - 5.21 x10(6)/mcL Hemoglobin 13.8 11.7 - 15.5 g/dL Hematocrit 40.6 35.7 - 45.8 % MCV 91.9 82.6 - 94.4 fL MCH 31.2 27.1 - 32.0 pg MCHC 34.0 31.7 - 35.0 g/dL Platelets 180 145 - 357 x10(3)/mcL RDWSD 40.7 37.0 - 46.0 fL RDWCV 12.1 11.5 - 14.1 % MPV 10.0 7.6 - 12.9 fL nRBC % Auto 0.0 % nRBC Abs Auto 0.000 0.000 - 0.000 x10(3)/mcL Differential, Automated Result Value Ref Range Neutrophils % 71.1 % Neutr Abs (ANC) 6.66 (H) 1.70 - 6.10 x10(3)/mcL Lymphocytes % 21.5 % Lymphocytes Abs 2.0 0.9 - 3.2 x10(3)/mcL Monocytes % 5.5 % Monocyte Abs 0.5 0.3 - 0.9 x10(3)/mcL Eosinophils % 1.5 % Eosinophils Abs 0.1 0.0 - 0.4 x10(3)/mcL Basophils % 0.1 % Basophils Abs 0.0 0.0 - 0.1 x10(3)/mcL Immature Gran % 0.30 % Dalia Gran Abs 0.03 0.00 - 0.04 x10(3)/mcL ?? Assessment and Plan: ?? No problem-specific Assessment & Plan notes found for this encounter. ? #1 Breast cancer--42 yo with stage I right breast cancer ER+ Her2+ doing well , No concern for recurrence. IVELISSE. Labs reviewed, wnl. ?? #2 Chemotherapy--monitoring for toxicity--resolved except for memory and fatigue, likely multi-factorial. ?? #3 Fatigue--stable. ?? #4 Menopausal symptoms--jovan-menopausal ?? #5 Bone health--normal vit D. at moderate long-term risk for osteoporosis given premature jovan=menopausa secondary to chemotherapy. Will get baseline dexa 1-2 yrs after LMP. ?? #6 Medication management??--tamoxifen renewed ?? Plan: ?? F/u 1 yr with JOANN or Routine colonoscopy at age 47 ? documented in this encounter Plan of Treatment Upcoming Encounters Date Type Department Care Team (Late st Contact Info) Description 06/30/2024 4:30 PM EDT Office Visit [place]ology [place] [address] Shilpi Gallegos MD [facility] DR HEMATOLOGY [place] [address] documented as of this encounter Visit Diagnoses Diagnosis Invasive ductal carcinoma of right breast Medication management Encounter for long-term (current) use of other medications documented in this encounter Care Teams Casino Cage Supervisor Relationship Specialty Start Date End Date Radha Acuna MD [address] [place] [address] [place] [address] PCP - General 08/07/11 documented as of this encounter
--- OUTSIDE RECORDS SUMMARY | 2024-04-07 16:38 | XMS_ITS | Encounter Summary ---
[place] [address] Care Team Providers Care Pin Attacher Name Role Phone Radha Acuna MD Primary Care Provider [phone]- [phone] Reason for Visit * Reason Comments Follow-up Encounter Details Date Type Department Care Team (Late st Contact Info) Description 10/02/2020 4:30 PM EDT Office Visit Hematology [place] [address] Candelaria Pepper PA Night sweats; Invasive ductal carcinoma of right breast Social [...] Sign Reading Time Taken Comments Blood Pressure 111/75 10/02/2020 4:01 PM EDT Pulse 67 10/02/2020 4:01 PM EDT Temperature 36.6 ??C (97.9 ??F) 10/02/2020 4:01 PM ED T Respiratory Rate 17 10/02/2020 4:01 PM EDT Oxygen Saturation 99% 10/02/2020 4:01 PM EDT Inhaled Oxygen Concentration - - Weight 46 kg (101 lb 6.4 oz) 10/02/2020 4:01 PM EDT Height 152.4 cm (5') 10/02/2020 4:01 PM EDT Body Mass Index 19.8 10/02/2020 4:01 PM EDT documented in this encounter Progress Notes * Candelaria Pepper PA - 10/02/2020 4:30 PM EDT Subjective: Patient ID: Trina Frances is a 40 y.o. female. Cc: breast cancer Interval history: Trina is here for 6mo follow-up. She is doing well. 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 She continues on tamoxifen. She is having menses less than monthly now (LMP around late July/early August), still light and lasting 1-3 days. In the last month she has had a significant increase in the frequency and severity of night sweats. She had hot flashes and night sweats during chemo when periods temporarily ceased and again when she started tamoxifen, but nothing this bad. She reports having random spiking fevers up to 102 F occasionally over the last year. She has a stable enlarged right cervical lymph node that was biopsied and negative during staging; she denies other lymphadenopathy. She has lost about 5 lbs in 6 months but reportsthis is intentional as she has cut back on junk food and has been exercising more with hiking and exercise videos. No other health changes or symptoms to report. No chest wall or axillary masses. No pain, dyspnea, cough, dizziness, lightheadedness, headaches, double vision, abdominal bloating, leg s welling/pain. Labs last done in March at [facility] and were all normal. 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 On 09/11/16, she underwent a mammogram followed by ultrasound showing 2 right anca ast masses and right axilla node 1.2cm. Biopsy showed invasive ductal carcinoma, grade 2 with DCIS.HER2+ (FISH HER2:CEP-17 = 10), ER+/WA+ (11-90%). A right axilla node biopsy was [...] IDCA. Focal DCIS high grade, no LVI. [id number] 09/11/16- MAMMO BREAST US LIMITED BILATERAL, MAMMO [...] cancer cells with immunostaining, Stain Intensity Moderate. WA immunoreactivity: ??Positive 11-90% cancer cells with immunostaining, Stain Intensity Moderate to focal Strong. [id number] FISH is amplified. B - ??Needle biopsies: [...] isto Treated DCIS, 3 mm) Lymph Nodes ?[place] Lymph Nodes: ?? [place] lymph node biopsy performed ?Number of [place] Nodes Examined: ?8 ?Lymph Node Involvement: ?? None identified In summary, Trina Frances is a 36 yo woman with right breast IDC, ER/WA+, [id number] Initial imaging suggested a disease process spanning ~7cm (though MRI and PET scan shows 2 discrete lesions measuring ~13mm and 1 cm). She was treated with neoadjuvant chemotherapy followed by mastectomy with residual microinvastion and 0 of 8 LNs involved. pT1mi ??pN0 Review of Systems Constitutional: Negative. HENT: Negative. Eyes: Negative. Respiratory: Negative. Cardiovascular: Negative. Gastrointestinal: Negative. Endocrine: Negative. Genitourinary: Negative. Musculoskeletal: Negative. Skin: Negative. Allergic/Immunologic: Negative. Has chosen not to get the COVID vaccine yet Neurological: Negative. Hematological: Negative. Psychiatric/Behavioral: Negative. Objective: Physical Exam Vitals and nursing note reviewed. HENT: Head: Normocephalic. Right Ear: External ear normal. Left Ear: External ear normal. Nose: Nose normal. Mouth/Throat: Mouth: Mucous membranes are moist. Eyes: Conjunctiva/sclera: Conjunctivae normal. Cardiovascular: Rate and Rhythm: Normal rate. Pulses: Normal pulses. Pulmonary: Effort: Pulmonary effort is normal. No retractions. Comments: S/P bilateral mastectomies with implant reconstruction. Palpable ribs, no masses. No palpable axillary lymph nodes. Chest: Chest wall: No mass, lacerations, deformity, swelling, crepitus or edema. Abdominal: General: Abdomen is flat. Bowel sounds are normal. Musculoskeletal: General: Normal range of motion. Cervical back: Normal range of motion. Comments: No sternal, spinal, or pelvic tenderness. Lymphadenopathy: Cervical: No cervical adenopathy. Skin: General: Skin is warm and dry. Neurological: General: No focal deficit present. Mental Status: She is alert. Psychiatric: Mood and Affect: Mood normal. Behavior: Behavior normal. Thought Content: Thought content normal. Judgment: Judgment normal. Results: I reviewed labs done at [facility] (in media) on 04/11/20 CBC wnl CMP wnl aside from mildly low K Lipids wnl TSH wnl MMA and vit D wnl Assessment and Plan: #Breast cancer 40 y.o. with stage I right breast cancer ER/WA+ Her2+ s/p neoadjuvant TCH-P chemotherapy followed by bilateral mastectomies (residual microinvasion, 0/8 LN), on tamoxifen since April 2017. - Has tolerated tamoxifen well thus far, but now with significant increase in nighttime hot flashesand sweats which triggers her chronic urticaria. She is worried this may be a symptom of something more sinister. She does have unexplained fevers and weight loss (but this is intentional); she does not have any other B symptoms such as lymphadenopathy. CBC was normal in March 2020, but given new/worsening symptoms, I will repeat this to investigate for a possible hematologic malignancy. I have encouraged her to log the dates of her fevers, how long they last, temp, and any other concurrent symptoms she may have. I encouraged her to speak with her PCP about this. Consider CT as next step. #Chemotherapy--monitoring for toxicity--resolved. #Fatigue--stable, labs in March 2020 unrevealing for cause #4 Menopausal symptoms - Pre-menopausal but periods becoming more infrequent - I do suspect the most likely cause of increased night sweats is that she is transitioning to an early perimenopausal state, likely due to prior chemotherapy exposure, and tamoxifen is exacerbating these vasomotor symptoms. - I discussed non-pharm and pharmacologic agents that can reduce the severity and frequency of vasomotor symptoms. She prefers to monitor and try non-pharm first. - Check FSH and estradiol after about 1 year of no periods, then consider switch to AI #Bone health - Low risk for osteoporosis, obtain DXA when considering switch to AI Plan: CBC locally - I will communicate results and next steps with her. F/u [address] Gallegos. Candelaria Pepper PA-C Medical Oncology - Breast & GI [facility] Pager - [phone] documented in this encounter Plan of Treatment Upcoming Encounters Date Type Department Care Team (Late st Contact Info) Description 06/30/2024 4:30 PM EDT Office Visit Hematology [place] [address] Shilpi Gallegos MD [facility] DR HEMATOLOGY [place] [address] documented as of this encounter Visit Diagnoses Diagnosis Night sweats Generalized hyperhidrosis Invasive ductal carcinoma of right breast documented in this encounter Care Teams Pin Attacher Relationship Specialty Start Date End Date Radha Acuna MD [address] [place] [address] JOSE MIGUEL MENDOZA [id number] PCP - General 08/07/11 documented as of this encounter
--- OUTSIDE RECORDS SUMMARY | 2024-04-07 16:38 | XMS_ITS | Encounter Summary ---
Author Organization Formerly [facility] [place] [address] Care Team Providers Care Senior Controls Engineer Name Role Phone Radha Acuna MD Primary Care Provider +1- [phone] Encounter Details Date Type Department Care Team (Latest Contact Info) Description 02/10/2022 Travel Social History Tobacco Use Types Packs/Day [...] EDT Office Visit Hematology [place] [address] Shilpi Gallegos MD [facility] [place]EMATOLOGY [place] [address] documented as of this encounter Visit Diagnoses Not on filedocumented in this encounter Care Teams Senior Controls Engineer Relationship Specialty Start Date End Date Radha Acuna MD [address] [place] [address] [address] [place] [id number] PCP - General 08/07/11 documented as of this encounter
--- OUTSIDE RECORDS SUMMARY | 2024-04-07 16:38 | XMS_ITS | Encounter Summary ---
Author Organization [facility] [place] [address] Care Team Providers Care Game Producer Name Role Phone Radha Acuna MD Primary Care Provider +1- [phone] Encounter Details Date Type Department Care Team (Late st Contact Info) Description 10/09/2020 Ancillary Procedure Radiology Library at [facility] [place] [address] Radha Acuna MD [address] [place] [address] [place] [id number] Social History Tobacco Use Types Packs/Day Years [...] EDT Office Visit Hematology [place] [phone] Shilpi Gallegos MD [facility] [place] [address] documented as of this encounter Procedures Procedure Name Priority Date/Time Associated Diagnosis Comments FILM LIBRARY STORAGE ONLY NUCLEAR MEDICINE Routine 10/09/2020 12:00 AM EDT documented in this encounter Results * Film Library- Storage Only nuclear medicine (10/09/2020 12:00 AM EDT) Narrative [facility] - 10/29/2020 10:22 AM EDT This exam is auto-finalizing. It's purpose is for storage only. Radha Acuna MD IMG FILM LIBRARY O RDERABLES Performing Organization Address City/State/[facility] Co de Phone Number [place], [place] documented in this encounter Visit Diagnoses Not on filedocumented in this encounter Care Teams Game Producer Relationship Specialty Start Date End Date Radha Acuna MD [address] [place] [address] [place] [address] PCP - General 08/07/11 documented as of this encounter
--- OUTSIDE RECORDS SUMMARY | 2024-04-07 16:38 | XMS_ITS | Encounter Summary ---
Author Organization [facility] [place] [address] Care Team Providers Care Axminster Weaver Name Role Phone Radha Acuna MD Primary Care Provider +1- [phone] Reason for Visit * Reason Comments Follow-up Encounter Details Date Type Department Care Team (Late st Contact Info) Description 04/15/2021 4:30 PM EST Office Visit Hematology [place] [address] Shilpi Gallegos MD [facility] [address] [place] [address] Invasive ductal carcinoma of right breast Social [...] Sign Reading Time Taken Comments Blood Pressure 115/76 04/15/2021 4:06 PM EST Pulse 67 04/15/2021 4:06 PM EST Temperature 36.5 ??C (97.7 ??F) 04/15/2021 4:06 PM ES T Respiratory Rate 16 04/15/2021 4:06 PM EST Oxygen Saturation 100% 04/15/2021 4:06 PM EST Inhaled Oxygen Concentration - - Weight 48.7 kg (107 lb 6.4 oz) 04/15/2021 4:06 P M EST Height 152.4 cm (5') 04/15/2021 4:06 PM EST Body Mass Index 20.98 04/15/2021 4:06 PM EST documented in this encounter Progress Notes * Shilpi Gallegos MD - 04/15/2021 4:30 PM EST Patient ID: Trina Frances is a 40 y.o. female. Cc: breast cancer ?? Interval history: Trina is doing well. It's been a crazy year trying to keep the kids in school , home-schooling when not, and keeping busy at work. Menses are irregular, none for 4 months, then 2 in one month. Continues to be frustrated with memory problems and word finding, took a memory test on line and was in the normal range for her age. No weight loss, nausea, vomiting, diarrhea or constipation. Fevers , hives and sweats she had last summer resolved with prednisone. No infectious work up was done, but no hx of tick bites or other infections. ? HPI Clinical Right breast cancer, dx at age 36. overlapping sites, clinical [id number] ER/DE + HER2 + ratio 10.0 ?? Right breast axillary ultrasound biopsy negative PET scan negative ? Superior cervical node abnormality, biopsy 10/02/16 benign. BRCA panel testing negative for germline mutations. ??In 07/2016, she noted a tender right breast lump without skin changes or nipple discharge. 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 ??On 09/11/16, she underwent a mammogram followed by ultrasound showing 2 right breast masses and right axilla node 1.2cm. ??Biopsy showed invasive ductal carcinoma,grade 2 with DCIS. ??HER2+ (FISH HER2:CEP-17 = 10), ER+/DE+ (11-90%). ??A right axilla node biopsy was [...] mastectomy after neoadjuvant chemotherapy. ?? Neoadjuvant regimen: TCH-P x 6 cycles ?? Cycle 1-6 TCH-P 10/05/16 - 01/29/17 Surgery delayed due to persistent grade 3 thrombocytopenia, no transfusions required. ?? Surgery 03/15/17, bilateral mastectomies with reconstruction, with near complete response to NAC. 0/8 lymph nodes without evidence of treatment effect; Tumor bed approx 1.5 cm with complete response except for focal residual micro- invasive IDCA. Focal DCIS high grade, no LVI. ?? [id number] ?? 09/11/16- MAMMO BREAST US LIMITED BILATERAL, [...] adenopathy. Left breast without evidence of disease. ?? 09/11/16- RIGHT BREAST ULTRASOUND GUIDED AUTOMATED CORE BIOPSY x2, lesion #1 is a suspicious mass at the 3:00 radian 2 cm from the nipple. A - ??Needle biopsies: ??Right breast lesion 1 Diagnosis: ?Invasive ductal carcinoma, intermediate grade. Ductal carcinoma in-situ, high grade with comedo necrosis. ER immunoreactivity: ??Positive 11-90% cancer cells with immunostaining, Stain Intensity Moderate. DE immunoreactivity: ??Positive 11-90% cancer cells with immunostaining, Stain Intensity Moderate to focal Strong. [id number] FISH is amplified. ?? B - ??Needle biopsies: ??Right axillary node ultrasound biopsy. Diagnosis: Benign node fragments. ?? 09/17/16- BILATERAL BREAST MRI. LEFT Breast: Confluent [...] RIGHT BREAST LESION 1: ??1 cm Mass. Right medial breast ??3 O'Clock 3 cm from [...] adenopathy. ?? 09/22/16- MAMMO ULTRASOUND OF THE NECK. FINDINGS: [...] head and posterior left acetabulum. IMPRESSION 1. ??Two FDG avid medial right breast lesions, corresponding to patient's known breast carcinoma. 2. ??Small hypermetabolic right axillary lymph nodes, left axillary lymph node, and distal right external iliac lymph node,indeterminate for reactive versus jose enrique metastases. 3. ??Hypermetabolic activity in the right hemipelvis, may represent functioning ovarian tissue. Anatomic evaluation is limited on these noncontrast- enhanced CT images. For complete evaluation, pelvic ultrasound is recommended. 4. ??Indeterminate CT visualized tiny sclerotic foci in the left femoral head and posterior left acetabulum, likely below the sensitivity of PET. ?? 10/02/16- IR BIOPSY of right cervical neck lymph node. DIAGNOSIS Negative for Malignancy ?? 10/27/16- Normal transvaginal pelvic sonogram. Specifically, normal right ovary. ?? 10/05/16 - 01/29/17- Cycle 1-6 TCH-P ?? 03/15/17- DIAGNOSIS. Left breast, skin and nipple-sparing mastectomy: Benign breast tissue. Right Skin-sparing mastectomy: Invasive ductal carcinoma, Only microinvasion present (not graded). DCIS is present, Lymph-Vascular Invasion Not identified, Margins uninvolved by invasive carcinoma (closest isto Treated DCIS, 3 mm) Lymph Nodes ?[place] Lymph Nodes: ?? [place] lymph node biopsy performed ?Number of [place] Nodes Examined: ?8 ?Lymph Node Involvement: ?? None identified ?? In summary, Trina Frances is a 36 yo woman with right breast IDC, ER/DE+, [id number] Initial imaging suggested a disease process spanning ~7cm (though MRI and PET scan shows 2 discrete lesions measuring ~13mm and 1 cm). She was treated with neoadjuvant chemotherapy followed by mastectomy with residual microinvastion and 0 of 8 LNs involved. pT1mi ??pN0 ?? Review of Systems Constitutional: Negative. No regular exercise program, not a fan. HENT: Negative. Eyes: Negative. Respiratory: Negative. Cardiovascular: Negative. Gastrointestinal: Negative. Endocrine: Negative. Genitourinary: Negative. Musculoskeletal: Negative. Skin: Negative. Allergic/Immunologic: Negative. Neurological: Negative. Hematological: Negative. Psychiatric/Behavioral: Negative. ? Objective: Physical Exam Vitals signs and nursing note reviewed. Last value Range last 8 hrs Temperature Temp: 36.5 ??C (97.7 ??F) Temp: [36.5 ??C (97.7 ??F)] Heart Rate Heart Rate: 67 Heart Rate: [67] Blood Pressure BP: 115/76 BP: (115)/(76) Respiratory Rate Resp: 16 Resp: [16] SpO2 SpO2: 100 % SpO2: [100 %] HENT: Head: Normocephalic. Right Ear: External ear normal. Left Ear: External ear normal. Nose: Nose normal. Mouth/Throat: Mouth: Mucous membranes are moist. Eyes: Conjunctiva/sclera: Conjunctivae normal. Neck: Musculoskeletal: Normal range of motion. Cardiovascular: Rate and Rhythm: Normal rate. Pulses: Normal pulses. Pulmonary: Effort: Pulmonary effort is normal. No retractions. Chest: Chest wall: No mass, lacerations, deformity, swelling, tenderness, crepitus or edema. Abdominal: General: Abdomen is flat. Bowel sounds are normal. Musculoskeletal: Normal range of motion. Skin: General: Skin is warm and dry. Neurological: General: No focal deficit present. Mental Status: She is alert. Psychiatric: Mood and Affect: Mood normal. Behavior: Behavior normal. Thought Content: Thought content normal. Judgment: Judgment normal. ? Assessment and Plan: ?? No problem-specific Assessment & Plan notes found for this encounter. ? #1 Breast cancer--40 yo with stage I right breast cancer ER+ Her2+ doing well , except for some chronic issues with fatigue, memory etc. No concern for recurrence. IVELISSE. ?? #2 Chemotherapy--monitoring for toxicity--resolved. ?? #3 Fatigue--stable. ?? #4 Menopausal symptoms--jovan-menopausal ?? #5 Bone health--at moderate long-term risk for osteoporosis given premature jovan=menopausa secondary to chemotherapy. Will get baseline dexa 1-2 yrs after LMP. ?? #6 Medication management --tamoxifen renewed ?? Plan: ?? F/u 1 yr with PA or ? documented in this encounter Plan of Treatment Upcoming Encounters Date Type Department Care Team (Late st Contact Info) Description 06/30/2024 4:30 PM EDT Office Visit Hematology [place] [address] Shilpi Gallegos MD [facility] DR [place]AT[place] [address] documented as of this encounter Visit Diagnoses Diagnosis Invasive ductal carcinoma of right breast documented in this encounter Care Teams Axminster Weaver Relationship Specialty Start Date End Date Radha Acuna MD [address] [place] [address] [place] [address] PCP - General 08/07/11 documented as of this encounter
--- OUTSIDE RECORDS SUMMARY | 2024-04-07 16:38 | XMS_ITS | Encounter Summary ---
Author Organization [facility] Address [facility] [place] [address] Care Team Providers Care News Commentator Name Role Phone Radha Acuna MD Primary Care Provider +1- [phone] Reason for Visit * Reason Comments Follow-up Encounter Details Date Type Department Care Team (Late st Contact Info) Description 09/19/2019 8:00 AM EDT Office Visit Hematology [place] [address] Shilpi Gallegos MD [facility] [address] [place] [address] Invasive ductal carcinoma of right breast Social [...] Sign Reading Time Taken Comments Blood Pressure 111/72 09/19/2019 7:55 AM EDT Pulse 64 09/19/2019 7:55 AM EDT Temperature 37.1 ??C (98.8 ??F) 09/19/2019 7:55 AM ED T Respiratory Rate 18 09/19/2019 7:55 AM EDT Oxygen Saturation 99% 09/19/2019 7:55 AM EDT Inhaled Oxygen Concentration - - Weight 49.6 kg (109 lb 6.4 oz) 09/19/2019 7:55 A M EDT Height 155.6 cm (5' 1.26) 09/19/2019 7:55 AM ED T Body Mass Index 20.5 09/19/2019 7:55 AM EDT documented in this encounter Progress Notes * Shilpi Gallegos MD - 09/19/2019 8:00 AM EDT Subjective: Patient ID: Trina Frances is a 39 y.o. female. Cc: breast cancer Interval history: Trina is here for f/u. 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 She continues classes on line, and home-schooling the kids while they were out of school, and working. Menses irreg: occasional menses, 3 days every 2-3 months; notices ovarian pain prior to menses lasting 1-2 days then resolves. 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 Kids 4 and 10 No pain, or new lumps or bumps. No change in family history, sister seeking , Trina is wondering about being an egg donor for her. 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 On 09/11/16, she underwent a mammogram followed by ultrasound showing 2 right anca ast masses and right axilla node 1.2cm. Biopsy showed invasive ductal carcinoma, grade 2 with DCIS.HER2+ (FISH HER2:CEP-17 = 10), ER+/OR+ (11-90%). A right axilla node biopsy was [...] IDCA. Focal DCIS high grade, no LVI. [id number] 09/11/16- MAMMO BREAST US LIMITED BILATERAL, MAMMO [...] cancer cells with immunostaining, Stain Intensity Moderate. OR immunoreactivity: ??Positive 11-90% cancer cells with immunostaining, Stain Intensity Moderate to focal Strong. [id number] FISH is amplified. B - ??Needle biopsies: [...] isto Treated DCIS, 3 mm) Lymph Nodes ?[place] Lymph Nodes: ?? [place] lymph node biopsy performed ?Number of [place] Nodes Examined: ?8 ?Lymph Node Involvement: ?? None identified In summary, Trina Frances is a 36 yo woman with right breast IDC, ER/OR+, [id number] Initial imaging suggested a disease process spanning [...] Hematological: Negative. Psychiatric/Behavioral: Negative. Objective: Physical Exam Assessment and Plan: No problem-specific Assessment & Plan notes found for this encounter. #1 Breast cancer--38 yo with stage I right breast cancer ER+ her2 + doing well on tamoxifen. s/p bilateral mastectomies, IVELISSE. For Trina to be an egg donor she'd have to interrupt tamoxifen for several months to a year dependingon how the process goes. Clinical trials are evaluating the safety of that, results pending. Trina states she's unlikely to proceed with that, doesn't want to interrupt her tamoxifen. ?? #2 Chemotherapy--monitoring for toxicity--resolved. ?? #3 Fatigue--increased since she started school ?? #4 Menopausal symptoms--premenopausal, menses irregular, stable. ?? #5 Bone health--continue low dose calcium and vit D supplements. ?? #6 Medication management --no new medications. Tamoxifen renewed. ?? Plan: continue tamoxifen ?? F/u 6 months documented in this encounter Plan of Treatment Upcoming Encounters Date Type Department Care Team (Late st Contact Info) Description 06/30/2024 4:30 PM EDT Office Visit Hematology [place] [address] Shilpi Gallegos MD [facility] DR HEMATOLOGY [place] [address] documented as of this encounter Results * Mammo US Axilla [...] report, please contact the number below. ? Electronically signed by: [place] [facility] ([phone]), at 09/19/2019 12:06 PM Narrative 09/19/2019 12:06 PM EDT EXAMINATION: MAMMO [...] Diagnosis Invasive ductal carcinoma of right breast Invasive ductal carcinoma of right breast documented in this encounter Care Teams News Commentator Relationship Specialty Start Date End Date Radha Acuna MD [address] [place] [address] [place] [address] PCP - General 08/07/11 documented as of this encounter
--- OUTSIDE RECORDS SUMMARY | 2024-04-07 16:38 | XMS_ITS | Encounter Summary ---
Author Organization [facility] [place] [address] Care Team Providers Care Message Clerk Name Role Phone Radha Acuna MD Primary Care Provider +1- [phone] Encounter Details Date Type Department Care Team (Latest Contact Info) Description 07/10/2022 1:50 PM EDT - 07/10/2022 11:59 PM EDT Hospital Encounter [place]ology [place] [address] Invasive ductal carcinoma of right breast; Malignant neoplasm of upper-outer quadrant of right breast in female, estrogen receptor positive Discharge Disposition: Home Social History Tobacco Use [...] Sig Dispensed Refills Start Date End Date fluconazole (Diflucan) 150 mg tablet TAKE ONE TABLET BY MOUTH EVERY 72 HOURS 05/28/2022 cetirizine (ZyrTEC) 10 mg Tablet Take 1 [...] of calcium and 1600iu of Vit D tamoxifen (Nolvadex) 20 mg tablet Take 1 tablet by mouth daily. 90 tablet 3 07/10/2022 07/02/2023 minocycline (Minocin) 50 mg Capsule Take 1 capsule by mouth nightly for 1 week then 1 capsule by mouth twice daily for 4 weeks then 1 capsule by mouth daily for 2 weeks then discontinue. 77 capsule 03/27/2022 07/23/2022 documented as of this encounter Plan of Treatment Upcoming Encounters Date Type Department Care Team (Late st Contact Info) Description 06/30/2024 4:30 PM EDT Office Visit Hematology [place] [address] Shilpi Gallegos MD [facility] DR HEMATOLOGY [place] [address] documented as of this encounter Procedures Procedure Name Priority Date/Time Associated Diagnosis Comments HEMOGRAM Routine 07/10/2022 2:50 PM EDT Invasive ductal carcinoma of right breast Malignant neoplasm of upper-outer quadrant of right breast in female, estrogen receptor positive DIFFERENTIAL, AUTOMATED Routine 07/10/2022 2:50 PM EDT Invasive ductal carcinoma of right breast Malignant neoplasm of upper-outer quadrant of right breast in female, estrogen receptor positive HC VITAMIN D TOTAL-25 HYDROXY Routine 07/10/2022 2:50 PM EDT Invasive ductal carcinoma of right breast Malignant neoplasm of upper-outer quadrant of right breast in female, estrogen receptor positive HC CBC,PLT & AUTO DIFF Routine 2:50 PM EDT Invasive ductal carcinoma of right breast Malignant neoplasm of upper-outer quadrant of right breast in female, estrogen receptor positive LIPID PANEL (REFLEX DIRECT LDL) Routine 07/10/2022 2:50 PM EDT Invasive ductal carcinoma of right breast Malignant neoplasm of upper-outer quadrant of right breast in female, estrogen receptor positive COMPREHENSIVE METABOLIC PANEL Routine 07/10/2022 2:50 PM EDT Invasive ductal carcinoma of right breast Malignant neoplasm of upper-outer quadrant of right breast in female, estrogen receptor positive documented in this encounter Results * (ABNORMAL) Differential, Automated (07/10/2022 2:50 PM EDT) Neutrophil % 71.1 % [facility] Neutrophil Absolute 6.66(H) 1.70 - 6.10 x10(3)/mc L [facility] Lymph % 21.5 % [facility] Lymphocytes Abs 2.0 0.9 - 3.2 x10(3)/mc L [facility] Monocyte % 5.5 % [facility] Monocyte Abs 0.5 0.3 - 0.9 x10(3)/mc L [facility] Eos % 1.5 % [facility] Eosinophils Abs 0.1 0.0 - 0.4 x10(3)/mc L [facility] Basophil % 0.1 % [facility] Baso Absolute 0.0 0.0 - 0.1 x10(3)/mc L [facility] Immature Gran % 0.30 % [facility] Comment: Immature granulocytes(IG's)percentage and absolute count will include metamyelocytes, myelocytes, and promyelocytes. Blood smears from CBCs yielding IG's will be scanned manually for concordance. If this scan disagrees with the automated IG or if promyelocytes are noted, a manual differential will be performed. Immature Gran Absolute 0.03 0.00 - 0.04 x10(3)/mc L [facility] Blood 07/10/2022 2:50 PM EDT 07/10/2022 2:54 PM EDT Narrative Resulting Agency Comment Spec In Lab Shilpi Gallegos MD HEMATOLOGY ORDERABL ES [facility] [place] [address] * Hemogram (07/10/2022 2:50 PM EDT) White Blood Cell 9.4 4.0 - 9.5 x10(3)/[facility] Red Blood Cell 4.42 4.00 - 5.21 x10(6)/[facility] Hemoglobin 13.8 11.7 - 15.5 g/dL [facility] Hematocrit 40.6 35.7 - 45.8 % [facility] Mean Cell Volume 91.9 82.6 - 94.4 fL [facility] Mean Cell Hemoglobin 31.2 27.1 - 32.0 pg [facility] Mean Cell Hemoglobin Concentration 34.0 31.7 - 35.0 g/dL [facility] Platelet 180 145 - 357 x10(3)/[facility] RDW Standard Deviation 40.7 37.0 - 46.0 fL [facility] RDW coefficient of variation 12.1 11.5 - 14.1 % [facility] Mean Platelet Volume 10.0 7.6 - 12.9 fL [facility] NRBC% auto 0.0 % [facility] NRBC Absolute 0.000 0.000 - 0.000 x10(3)/[facility] Blood 07/10/2022 2:50 PM EDT 07/10/2022 2:54 PM EDT Narrative Resulting Agency Comment Spec In Lab Shilpi Gallegos MD HEMATOLOGY ORDERABL ES Performing Organization Address City/[facility]/ZIP [place] [address] * Vitamin D, 25-Hydroxy (07/10/2022 2:50 PM EDT) Vitamin D Total 25 OH 71 21 - 100 ng/mL [facility] Vit D Interp Sufficient [facility] Blood 07/10/2022 2:50 PM EDT 07/10/2022 2:54 PM EDT Narrative Resulting Agency Comment Spec In Lab Shilpi Gallegos MD CHEMISTRY ORDERABLE S [facility] [place] [address] * Lipid Panel (Reflex Direct LDL) (07/10/2022 2:50 PM EDT) Cholesterol, Total 167 mg/dL M [facility] Comment: Lower Risk: <200 mg/dL Average Risk: 200-239 mg/dL Higher Risk: >fr=297 mg/dL Triglyceride 45 mg/dL [facility] Comment: Average Risk/Lower Risk: <150 mg/dL Borderline High Risk: 150-199 mg/dL High Risk: 200-499 mg/dL Very High Risk: >po=779 mg/dL HDL Cholesterol 90 mg/dL [facility] Comment: Males: ?? Higher Risk: <40 mg/dL Females: ?? Higher Risk: <50 mg/dL LDL Cholesterol 68 mg/dL [facility] Comment: Lowest Risk: <100 mg/dL Lower Risk: 100-129 mg/dL Borderline High Risk: 130-159 mg/dL High Risk: 160-189 mg/dL Very High Risk: >dl=059 mg/dL Cholesterol/HDL Ratio 1.9 ratio [facility] Lipid Interpretation See Note [facility] Comment: Lipid management should be guided by a patient? s ASCVD risk, goals and preferences. ACC/AHA Guidelines recommend high intensity statin if clinical ASCVD or LDL greater than or equal to 190 mg/dL. http://uTest.com/ENY-PQV-Khewgtlqi Adults aged 40-75 with LDL 70-189 mg/dL should have their 10 year ASCVD risk estimated with the ACC/AHA ASCVD risk automobile repair service estimator http://tools.acc.org/VGVUN-Kdgx-Atagwhxah/ Statin should be discussed if risk greater [...] Lab Shilpi Gallegos MD CHEMISTRY ORDERABLE S [facility] [place] [address] * (ABNORMAL) Comprehensive metabolic panel (non-fasting) (07/10/2022 2:50 PM EDT) Glucose 87 65 - 199 mg/dL [facility] Comment:Diabetes: >=200 mg/d L plus symptoms Blood Urea Nitrogen 23(H) 8 - 18 mg/dL [facility] Creatinine 0.79 0.70 - 1.20 mg/dL [facility] Sodium 138 135 - 145 mmol/L [facility] Potassium 3.9 3.5 - 5.0 mmol/L [facility] Comment: Please note: ??Patients with WBC >100,000 may have falsely elevated Potassium levels. ??For accurate Potassium quantification in these patients send serum separator tube (gold top) for subsequent determinations. ??Contact the Clinical Chemistry Laboratory if there are any questions. Chloride 103 98 - 107 mmol/L [facility] Carbon Dioxide 24 22 - 31 mmol/L [facility] Anion Gap 11 5 - 15 mmol/L [facility] Calcium 9.0 8.5 - 10.5 mg/dL [facility] Protein, Total 7.0 6.1 - 8.0 g/dL [facility] Albumin 4.6 3.2 - 5.2 g/dL [facility] Aspartate Aminotransferase 27 0 - 30 unit/L [facility] Alanine Aminotransferase 16 0 - 30 unit/L [facility] Alkaline Phosphatase 61 35 - 105 unit/L [facility] Bilirubin, Total 0.2 0.2 - 1.3 mg/dL [facility] Est Glomerular Filtration Rate 97 >=60 mL/min/1. 73 m?? [facility] Comment: This patient's estimated GFR was [...] MD CHEMISTRY ORDERABLE S Performing Organization Address City/State/[facility] Co de Phone Number [facility] [place] [address] documented in this encounter Visit Diagnoses Diagnosis Invasive ductal carcinoma of right breast Malignant neoplasm of upper-outer quadrant of right breast in female, estrogen receptor positive documented in this encounter Care Teams Message Clerk Relationship Specialty Start Date End Date Radha Acuna MD [address] [place] [address] [place] [address] PCP - General 08/07/11 documented as of this encounter
--- OUTSIDE RECORDS SUMMARY | 2024-04-07 16:38 | XMS_ITS | Encounter Summary ---
Author Organization [facility] [place] [address] Care Team Providers Care Stationary Engineer Name Role Phone Radha Acuna MD Primary Care Provider +1- [phone] Reason for Visit * Reason Comments Follow Up Surgery 1 year f/u s/p bilat implant breast recon Encounter Details Date Type Department Care Team (Late st Contact Info) Description 09/19/2019 9:00 AM EDT Office [place] [address] Frantz Martínez MD [facility] [address] S/P breast reconstruction, bilateral Social History Tobacco [...] Progress Notes * Frantz Martínez MD - 09/19/2019 9:00 AM EDT Plastic Surgery Follow Up Note Reason for visit: F/U status post procedure Date of surgery: 06/09/17 Procedure(s): Tissue aircraft steel fabricator exchange with permanent prothesis, capsulotomies ([place] SRM+ 275cc), Complications: none reported Date of surgery: 03/15/17 Procedure(s): Bilateral breast reconstruction with tissue expanders (300cc Artoura High Profile filled to 100 ml intra op) . (Right mastectomy weight 240 grams) Complications: None reported Chemotherapy: Completed one course in January. Began Herceptin Radiation: Not indicated. Symmetry surgery: n/a HPI: Patient reports she is doing well, revisited last visit concerns of having the implants largerin volume. 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 Is interested in fat grafting, unsure what time frame works best with school. She had the left upper chest scar revised in February by a general surgeon and does not appreciate any change in the appearance, is still bothered by this and may start laser treatment to address the pigment. Examination: Patient is alert, conversant, comfortable, ambulating Well healed incisions Left upper chest widedened port scar Measures: 3 cm x 5 mm, it is raised Mild hypertrophy Mild rippling superior medially bilatrally Good volume symmtry Good IMF asymmetry Subtle NAC asymmetry Impression: Trina Frances is a 39 y.o. female who was seen today for follow-up after the above procedure. Please see the operative note for details. Assured that her reconstruction results are great. We re discussed our last conversation about placing larger implants and I would not recommend pursuing this option as over stretching the skin would put the implants at risk of exposure. In instance of exposure this would result in losing the implant and may not being able to replace. At the areasin the superior medial poll, I do appreciate a volume deficit. To address this there is an option of fat grafting to improve the contour of the volume deficit. I cannot guarantee the rippling appearance would be camouflaged by fat grafting alone explaining due to her thin physique and lack of subcutaneous fat it would be difficult to make a significant change to her concerns. Other options would include placing a textured shaped implant that would be similar in volume, it would be a more firm implant known as a gummie bear silicone that could decrease the presence of rippling. The trade offof this type of implant is that it would be less natural feel and have the potential to spin its position and displacing the majority of the volume at the superior aspect of the breast. We also talked about the appearance of her port scar that is hypertrophic scar and that as she had recently had this revised and would defer to readdress this at least 1 year post procedure to allow for the scar to continue to settle. Trina brought the question of revising this with laser treatment, this would primarily address the pigment of the scar but not the raised appearance. I advised that she begin dailyimplant massage explaining the importance of keeping the scar capsule around the implant soft in attempt to deter contracture. I expressed to the patient that in the instance any further questions orconcerns were to arise that I would be happy to have her follow up with me in clinic at a sooner date. Photos were obtained with signed informed consent. Plan: Follow up: 1 year with me or sooner Potential Surgical Grid: MNS Procedure: Revision of left upper chest scar Timeframe: Elective-1 year from last revision Time allotted: 60 mins CPT: 41687 Follow up: 10-14 days with AEE or NSO Potential Surgical Grid: Surgeon: Frantz Martínez Duration: 90 mins Timeframe: Elective Coordinated with: None Procedure: Revision of breast reconstruction with bilateral fat grafting CPT: 52297, 77127 Surgical site: Breast, abdomen Side: Bilateral Anesthesia: General Follow up: 7-10 Days with AEE or NSO PAT: No NEED PALS I, Latia Lazaro, have preformed the documentation for [...] EDT Office Visit Hematology [place] [address] Shilpi Gallegos MD [facility] DR HEMATOLOGY [place] [address] documented as of this encounter Visit Diagnoses Diagnosis S/P breast reconstruction, bilateral Breast replaced by other means documented in this encounter Care Teams Stationary Engineer Relationship Specialty Start Date End Date Radha Acuna MD [address] [place] [address] [place] [address] PCP - General 08/07/11 documented as of this encounter
--- OUTSIDE RECORDS SUMMARY | 2024-04-07 16:38 | XMS_ITS | Encounter Summary ---
[place] [address] Care Team Providers Care Fuel Cell Assembler Name Role Phone Radha Acuna MD Primary Care Provider +1- [phone] Encounter Details Date Type Department Care Team (Late st Contact Info) Description 10/08/2020 Telephone Hematology [place] [address] Odessa Guan Social History Tobacco Use Types Packs/Day Years [...] encounter Miscellaneous Notes * Telephone Encounter - Odessa Guan - 10/08/2020 2:59 PM EDT Patient called and requested to have CT and bone scan at [facility] as they are closer to her home and may be able to get her in sooner. Requested external orders. Submitted PA online with Michel and received approval for CT CAP @ [facility] [id number] 10/08-01/06 for [id number] and [id number]. No auth needed for bone scan. Called [facility] at [phone] and chose option 1 for radiology. Per recorded message, faxed order and auth to [phone]. Called patient's cell [phone] and spoke with her. I let her know that [facility] should have what they need to book her within a few minutes documented in this encounter Plan of Treatment Upcoming Encounters Date Type Department Care Team (Late st Contact Info) Description 06/30/2024 4:30 PM EDT Office Visit Hematology [place] [address] Shilpi Gallegos MD [facility] DR HEMATOLOGY [place] [address] documented as of this encounter Visit Diagnoses Not on filedocumented in this encounter Care Teams Fuel Cell Assembler Relationship Specialty Start Date End Date Radha Acuna MD [address] [place] [address] [place] [address] PCP - General 08/07/11 documented as of this encounter
--- OUTSIDE RECORDS SUMMARY | 2024-04-07 16:38 | XMS_ITS | Encounter Summary ---
[place] [address] Care Team Providers Care Manager Outpatient Name Role Phone Radha Acuna MD Primary Care Provider +1- [phone] Reason for Visit * Reason Comments Medication Refill Encounter Details Date Type Department Care Team (Late st Contact Info) Description 02/25/2022 Refill [place]ology [place] [address] Candelaria Pepper PA Social History Tobacco Use [...] Telephone Encounter - Laura Seaman RN - 02/26/2022 8:03 AM EST Received request via [place] for refill of Tamoxifen. Per review of medical record- Started April 2017. Per review of medical record, refill is appropriate. Last prescribed 02/21/21 Script prepared and sent to provider for review, signature and escribe. documented in this encounter Plan of Treatment Upcoming Encounters Date Type Department Care Team (Late st Contact Info) Description 06/30/2024 4:30 PM EDT Office Visit [place]ology [place] [address] Shilpi Gallegos MD [facility] DR [place]ATOLOGY [place] [address] documented as of this encounter Visit Diagnoses Not on filedocumented in this encounter Care Teams Manager Outpatient Relationship Specialty Start Date End Date Radha Acuna MD [address] [place] [address] [place] [address] PCP - General 08/07/11 documented as of this encounter
--- OUTSIDE RECORDS SUMMARY | 2024-04-07 16:38 | XMS_ITS | Encounter Summary ---
Author Organization [facility] [place] [address] Care Team Providers Care Microfilm Duplicating Unit Supervisor Name Role Phone Radha Acuna MD Primary Care Provider +1- [phone] Encounter Details Date Type Department Care Team (Late st Contact Info) Description 08/23/2018 Orders Only [place] [address] Shilpi Gallegos MD [facility] [address] [place] [address] Invasive ductal carcinoma of right breast Social [...] as of this encounter Progress Notes * Shilpi Gallegos MD - 08/23/2018 11:13 AM EDT Subjective: Patient ID: Trina Frances is a 38 y.o. female. Cc: breast cancer Interval history: Trina is here for routine f/u. She had right hip pain over the winter, labs and xrays normal, declined PT. Seemed better by May. Surgery and plastics f/u today too. 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 On 09/11/16, she underwent a mammogram followed by ultrasound showing 2 right anca ast masses and right axilla node 1.2cm. Biopsy showed invasive ductal carcinoma, grade 2 with DCIS.HER2+ (FISH HER2:CEP-17 = 10), ER+/NH+ (11-90%). A right axilla node biopsy was [...] IDCA. Focal DCIS high grade, no LVI. [id number] 09/11/16- MAMMO BREAST US LIMITED BILATERAL, MAMMO [...] cancer cells with immunostaining, Stain Intensity Moderate. NH immunoreactivity: ??Positive 11-90% cancer cells with immunostaining, Stain Intensity Moderate to focal Strong. [id number] FISH is amplified. B - ??Needle biopsies: [...] isto Treated DCIS, 3 mm) Lymph Nodes ?Dubois Lymph Nodes: ?? Dubois lymph node biopsy performed ?Number of Dubois Nodes Examined: ?8 ?Lymph Node Involvement: ?? None identified In summary, Trina Frances is a 36 yo woman with right breast IDC, ER/NH+, [id number]+. Initial imaging suggested a disease process spanning ~7cm (though MRI and PET scan shows 2 discrete lesions measuring ~13mm and 1 cm). She was treated with neoadjuvant chemotherapy followed by mastectomy with residual microinvastion and 0 of 8 LNs involved. pT1mi ??pN0 Review of Systems Constitutional: Positive for fatigue. HENT: Negative. Eyes: Negative. Respiratory: Negative. Cardiovascular: [...] Ear: Tympanic membrane and external ear normal. Nose: Nose normal. Mouth/Throat: Oropharynx is clear and moist. No oropharyngeal exudate. Eyes: Pupils are equal, round, and reactive to light. Conjunctivae and EOM are normal. Right eye exhibits no discharge. Left eye exhibits no discharge. No scleral icterus. Neck: Normal range of motion. Neck supple. No JVD present. No tracheal deviation present. No thyromegaly present. Cardiovascular: Normal rate, regular rhythm, normal heart sounds and intact distal pulses. Pulmonary/Chest: Effort normal and breath sounds normal. No stridor. No respiratory distress. She has no wheezes. She has no rales. She exhibits no tenderness. Abdominal: Soft. Bowel sounds are normal. She exhibits no distension and no mass. There is no tenderness. There is no rebound and no guarding. No hernia. Musculoskeletal: Normal range of motion. She exhibits no edema, tenderness or deformity. Lymphadenopathy: She has no cervical adenopathy. Neurological: She is alert and oriented to person, place, and time. She displays normal reflexes. No cranial nerve deficit or sensory deficit. She exhibits normal muscle tone. Coordination normal. Skin: Skin is warm and dry. No rash noted. She is not diaphoretic. No erythema. No pallor. Psychiatric: She has a normal mood and affect. Her behavior is normal. Judgment and thought contentnormal. Nursing note and vitals reviewed. Cbc, cmp and vit D pending. Assessment and Plan: No problem-specific Assessment & Plan notes found for this encounter. #1 Breast cancer--38 yo with hx stage I er/pr/her2 + breast cancer, near complete response to NAC. Doing well on tamoxifen. Menses regular. Some dyspareunia. #2 Chemotherapy--monitoring for toxicity--persistent fatigue, memory loss. #3 Fatigue--improving. #4 Menopausal symptoms--pre-menopausal. #5 Bone health--will screen for risk for osteoporosis prior to OS + AI after 5 years of tamoxifen. #6 Medication management --tamoxifen renewed. Plan: f/u 6 months documented in this encounter Plan of Treatment Upcoming Encounters Date Type Department Care Team (Late st Contact Info) Description 06/30/2024 4:30 PM EDT Office Visit [place] [phone] Shilpi Gallegos MD [facility] DR [place] [address] documented as of this encounter Results * Vitamin D, 25-Hydroxy (08/23/2018 12:29 PM EDT) Vitamin D Total 25 OH 56 30 - 100 ng/mL [facility] Comment: Deficient <10 ng/mL Insufficient 10 to 29 ng/mL Sufficient 30 to 100 ng/mL Potential Intoxication >100 ng/mL According to the US National Osteoporosis Foundation, Vitamin D concentrations >30 ng/mL are sufficient to protect bone health. ??The National Kidney Foundation has similarly stated that patients with Vitamin D concentrations <30ng/mL should be considered to be insufficient or deficient. http://BlackbookHR.com/nkf-guidelines http://BlackbookHR.ThermoEnergy/nejm-VitD The IDS iSYS Vitamin D Immunoassay detects both 25-OH Vitamin D2 and 25-OH Vitamin D3, but only a total Vitamin D concentration is reported. Blood specimen (specimen) 08/23/2018 12:29 PM EDT 08/23/2018 1:37 PM EDT Narrative Resulting Agency Comment Spec In Lab Shilpi Gallegos MD CHEMISTRY ORDERABLE S [facility] [place] [address] * Comprehensive metabolic panel (non-fasting) (08/23/2018 12:29 PM EDT) Glucose 79 65 - 199 mg/dL [facility] Comment:Diabetes: >=200 mg/d L plus symptoms Blood Urea Nitrogen 11 8 - 18 mg/dL [facility] Creatinine 0.80 0.70 - 1.20 mg/dL [facility] Sodium 144 135 - 145 mmol/L [facility] Potassium 3.6 3.5 - 5.0 mmol/L [facility] Comment: Please note: ??Patients with WBC >100,000 may have falsely elevated Potassium levels. ??For accurate Potassium quantification in these patients send serum separator tube (gold top) for subsequent determinations. ??Contact the Clinical Chemistry Laboratory if there are any questions. Chloride 105 98 - 107 mmol/L [facility] Carbon Dioxide 25 22 - 31 mmol/L [facility] Anion Gap 14 5 - 15 mmol/L [facility] Calcium 9.5 8.5 - 10.5 mg/dL [facility] Protein, Total 7.5 6.1 - 8.0 gm/dL [facility] Albumin 4.6 3.2 - 5.2 gm/dL [facility] Aspartate Aminotransferase 24 0 - 30 unit/L [facility] Alanine Aminotransferase 14 0 - 30 unit/L [facility] Alkaline Phosphatase 54 40 - 104 unit/L [facility] Bilirubin, Total 0.4 0.2 - 1.3 mg/dL [facility] Est Glomerular Filtration Rate 95 >=60 mL/min/1. 73 m?? [facility] Comment: The eGFR was calculated using the CKD-EPI equation. As with all creatinine based estimates of kidney function, eGFR values calculated with the CKD-EPI equation are not accurate in patients with acute kidney failure, extremes of body mass or the acutely ill. http://Lessonwriter/DHMCnkf eGFR 110 >=60 mL/min/1. 73 m?? [facility] Comment: The eGFR was calculated using the CKD-EPI equation. As with all creatinine based estimates of kidney function, eGFR values calculated with the CKD-EPI equation are not accurate in patients with acute kidney failure, extremes of body mass or the acutely ill. http://Lessonwriter/DHMCnkf Blood specimen (specimen) 08/23/2018 12:29 PM EDT 08/23/2018 12:33 PM EDT Narrative Resulting Agency Comment Spec In Lab Shilpi Gallegos MD CHEMISTRY ORDERABLE S Performing Organization Address City/State/[facility] Co de Phone Number [facility] [place] [address] documented in this encounter Visit Diagnoses Diagnosis Invasive ductal carcinoma of right breast documented in this encounter Care Teams Microfilm Duplicating Unit Supervisor Relationship Specialty Start Date End Date Radha Acuna MD [address] [place] [address] [place] [address] PCP - General 08/07/11 documented as of this encounter
--- OUTSIDE RECORDS SUMMARY | 2024-04-07 16:38 | XMS_ITS | Encounter Summary ---
Author Organization [facility] [place] [address] Care Team Providers Care Brewery Technician Name Role Phone Radha Acuna MD Primary Care Provider +1- [phone] Encounter Details Date Type Department Care Team (Late Contact Info) Description 03/27/2022 Refill Dermatology at [address] [address] Erika Weir RN Social History Tobacco Use Types Packs/Day [...] EDT Office Visit [place]ematology [place] [address] Shilpi Gallegos MD [facility] [place] [address] documented as of this encounter Visit Diagnoses Not on filedocumented in this encounter Care Teams Brewery Technician Relationship Specialty Start Date End Date Radha Acuna MD [address] [place] [address] [place] [address] PCP - General 08/07/11 documented as of this encounter
--- OUTSIDE RECORDS SUMMARY | 2024-04-07 16:38 | XMS_ITS | Encounter Summary ---
Author Organization [facility] [place] [address] Care Team Providers Care Pneumatic Deicer Inspector Name Role Phone Radha Acuna MD Primary Care Provider +1- [phone] Encounter Details Date Type Department Care Team (Late st Contact Info) Description 10/15/2020 4:15 PM EDT Ancillary Procedure Radiology Library at [facility] [address] Shilpi Gallegos MD [facility] DR HEMATOLOGY [place] [address] Social History Tobacco Use Types Packs/Day Years [...] EDT Office Visit Hematology and Oncology at [facility] [place] [phone] Shilpi Gallegos MD [facility] HEMATOLOGY [place] [address] documented as of this encounter Procedures Procedure Name Priority Date/Time Associated Diagnosis Comments FILM LIBRARY STORAGE ONLY CT CHEST ABDOMEN PELVIS Routine 10/15/2020 4:11 PM EDT documented in this encounter Results * Film Library- Storage Only CT Chest Abdomen Pelvis (10/15/2020 4:11 PM EDT) Narrative XAVIER - 10/15/2020 4:11 PM EDT This exam is auto-finalizing. It's purpose is for storage only. Shilpi Gallegos MD IMG FILM LIBRARY OR DERABLES Performing Organization Address City/State/[facility] Co de Phone Number [place], [place] documented in this encounter Visit Diagnoses Not on filedocumented in this encounter Care Teams Pneumatic Deicer Inspector Relationship Specialty Start Date End Date Radha Acuna MD [address] [place] [address] [place] [address] PCP - General 08/07/11 documented as of this encounter
--- OUTSIDE RECORDS SUMMARY | 2024-04-07 16:38 | XMS_ITS | Encounter Summary ---
Author Organization [facility] Address [facility] [place] [address] Care Team Providers Care Returned Telephone Equipment Appraiser Name Role Phone Radha Acuna MD Primary Care Provider +1- [phone] Encounter Details Date Type Department Care Team (Late st Contact Info) Description 07/02/2020 10:00 AM EDT Office Visit Dermatology at [address] [place] [phone] Brian Naranjo MD [address] [facility], BRIAN A DERMATOLOGY [place], [place] [id number] Vitiligo Social History Tobacco Use Types Packs/Day Years [...] Progress Notes * Brian Naranjo MD - 07/02/2020 10:00 AM EDT Problem: 1. Follow-up vitiligo 2. Chronic urticaria controlled with Zyrtec Trina follows up and continues to have significant vitiligo present on the inner ankles the dorsum ofthe feet the volar wrists but also over the dorsal hands and between her fingers, on the abdomen, and the popliteal fossa. She has a Lars light unit, a model 2800 narrowband UVB that she has had for about 10 years. She still using that. She also uses sun less tanning lotion to give so some color in the vitiliginous areas. She was doing some research in this discovered to Dr. Agustin Dolan at [facility] in [place] with using a new oral pill to treat vitiligo. She is not sure but this may be a COLE kinase inhibitor. (?Xeljanz). She has an appointment to see him but in the meantime would like to usesome topicals in addition to her narrowband UVB prior to that visit. This at his recommendation. I remind her that she has used topicals in the past including clobetasol but not clobetasol and tacrolimus. We discussed that these may or may not be covered by her insurance. Light unit is about 10 years old now she wants by getting new bulbs and she treated herself about 2 minutes and 50 seconds twice weekly to the affected areas. Physical examination reveals a pleasant 40-year-old woman who has pale wintertime skin but still 1 can make out the areas of vitiligo present at the above-noted sites, and as document on photographs that we have taken over the years in the chart. Assessment plan: Vitiligo 1. Begin clobetasol cream applying twice daily 1 week on 1 week off to vigilant vitiliginous areas.Dispense 50 g with 3 refills 2. Begin also tacrolimus/Protopic 0.1% ointment applying twice daily to affected areas 1 week on 1 weeks off alternating with the clobetasol. 3. I discussed how the chronic areas of vitiligo may not respond well to this therapy but certainlyis worth a try. 4. Will obtain new light bulbs for her unit. She will need to place all of her Lars light unit model 2800 narrowband UVB bulbs now through [employer], which has purchased the old [place] light company. Prescription written. 5. Patient will let me know how her visit with Dr. Dolan goes. CC: Radha Acuna MD documented in this encounter Plan of Treatment Upcoming Encounters Date Type Department Care Team (Late st Contact Info) Description 06/30/2024 4:30 PM EDT Office Visit [place]ematology [place] [address] Shilpi Gallegos MD [facility] DR HEMATOLOGY [place] [address] documented as of this encounter Visit Diagnoses Diagnosis Vitiligo documented in this encounter Care Teams Returned Telephone Equipment Appraiser Relationship Specialty Start Date End Date Radha Acuna MD [address] [place] [address] [place] [address] PCP - General 08/07/11 documented as of this encounter
--- OUTSIDE RECORDS SUMMARY | 2024-04-07 16:38 | XMS_ITS | Encounter Summary ---
Author Organization [facility] [place] [address] Care Team Providers Care Regional Training Manager Name Role Phone Radha Acuna MD Primary Care Provider +1- [phone] Encounter Details Date Type Department Care Team (Latest Contact Info) Description 07/10/2022 Travel Social History Tobacco Use Types Packs/Day [...] EDT Office Visit Hematology [place] [address] Shilpi Gallegos MD [facility] HEMATOLOGY [place] [address] documented as of this encounter Visit Diagnoses Not on filedocumented in this encounter Care Teams Regional Training Manager Relationship Specialty Start Date End Date Radha Acuna MD [address] [place] [address] [address] [place] [id number] PCP - General 08/07/11 documented as of this encounter
--- OUTSIDE RECORDS SUMMARY | 2024-04-07 16:38 | XMS_ITS | Encounter Summary ---
Author Organization [facility] [place] [address] Care Team Providers Care Movie Projectionist Name Role Phone Radha Acuna MD Primary Care Provider +1- [phone] Encounter Details Date Type Department Care Team (Late st Contact Info) Description 01/13/2019 Ancillary Procedure Radiology Library at [facility] [place] [phone] Radha Acuna MD [address] [place] [address] [place], [place] [id number] Social History Tobacco Use Types Packs/Day Years [...] EDT Office Visit Hematology [place] [address] Shilpi Gallegos MD [facility] HEMATOLOGY [place] [address] documented as of this encounter Procedures Procedure Name Priority Date/Time Associated Diagnosis Comments FILM LIBRARY STORAGE ONLY ULTRASOUND STUDY Routine 01/13/2019 12:00 AM EDT documented in this encounter Results * Film Library- Storage Only Ultrasound Study (01/13/2019 12:00 AM EDT) Narrative RAD - 03/01/2019 2:09 PM EST This exam is auto-finalizing. It's purpose is for storage only. Radha Acuna MD IMG FILM LIBRARY O RDERABLES [place], [place] documented in this encounter Visit Diagnoses Not on filedocumented in this encounter Care Teams Movie Projectionist Relationship Specialty Start Date End Date Radha Acuna MD [address] [place] [address] [place] [address] PCP - General 08/07/11 documented as of this encounter
--- OUTSIDE RECORDS SUMMARY | 2024-04-07 16:38 | XMS_ITS | Encounter Summary ---
[place] [address] Care Team Providers Care Education Finance Processor Name Role Phone Radha Acuna MD Primary Care Provider +1- [phone] Encounter Details Date Type Department Care Team (Late st Contact Info) Description 10/03/2020 Orders Only Hematology [place] [phone] Candelaria Pepper PA Night sweats; History of unexplained fever; Invasive ductal carcinoma of right breast Social [...] Progress Notes * Candelaria Pepper PA - 10/03/2020 1:59 PM EDT Discussed case with Dr. Gallegos (see 10/02/20 note). Plan made to recheck CBC, CMP, TSH, LDH, CT c/a/p, and bone scan here. documented in this encounter Plan of Treatment Upcoming Encounters Date Type Department Care Team (Late st Contact Info) Description 06/30/2024 4:30 PM EDT Office Visit Hematology [place] [address] [facility] HEMATOLOGY [place] [address] documented as of this encounter Visit Diagnoses Diagnosis Night sweats Generalized hyperhidrosis History of unexplained fever Invasive ductal carcinoma of right breast documented in this encounter Care Teams Education Finance Processor Relationship Specialty Start Date End Date Radha Acuna MD [address] [place] [address] [place] [address] PCP - General 08/07/11 documented as of this encounter
--- OUTSIDE RECORDS SUMMARY | 2024-04-07 16:38 | XMS_ITS | Encounter Summary ---
Author Organization Formerly [facility] [address] Care Team Providers Care Bilingual Inside Sales Representative Name Role Phone Radha Acuna MD Primary Care Provider +1- [phone] Reason for Visit * Consultation (Routine) - Closed Specialty Diagnoses / Procedures Referred By Clara t Referred To Contact Allergy Diagnoses Other urticaria RECURRENT DIFFUSE HIVES Radha Acuna MD [address] [place] [id number] [facility] [place] [address] [place] [address] Referral ID Status Reason Start Date Expiration Date V isits Requested Visits Authorized [id number] Closed Consult, [facility] PCP Updated and/or Approved 03/31/2019 03/30/2020 1 1 Encounter Details Date Type Department Care Team (Late st Contact Info) Description 06/06/2019 10:00 AM EST [place] [address] Jennifer Joyner MD [facility] [address] [place] [address] Chronic urticaria; Angioedema, initial encounter Social History Tobacco Use Types Packs/Day Years [...] Sign Reading Time Taken Comments Blood Pressure 121/78 06/06/2019 9:58 AM EST Pulse 64 06/06/2019 9:58 AM EST Temperature - - Respiratory Rate - - Oxygen Saturation 100% 06/06/2019 9:58 AM EST Inhaled Oxygen Concentration - - Weight 51.4 kg (113 lb 5.1 oz) 06/06/2019 9:58 A M EST Height 155.5 cm (5' 1.22) 06/06/2019 9:58 AM ES T Body Mass Index 21.26 06/06/2019 9:58 AM EST documented in this encounter Patient Instructions * Patient Instructions* Jennifer Joyner MD - 06/06/2019 10:00 AM EST Chronic urticaria (hives) and angioedema (swelling): this is a form of autoimmune disease, not an allergy. It is more common in people with other autoimmune diseases. Hives and swelling often flare up for weeks, months, or even years at a time, and then may go away for a while before coming back again. The exact cause of flare ups is not always known, but common triggers reported by patients can include pressure on the skin, heat, cold, medications, infections, and stress. Allergy testing is not recommended for this - there is no evidence that trying to identify and avoid allergic triggers has any effect on chronic hives. Recommend taking: - cetirizine (zyrtec) 10mg twice a day - if still having hives add famotidine (pepcid) 20mg twice a day - if still having hives add montelukast (singulair) 10mg at night - goal is no symptoms for 3 months, then taper medications If hives not controlled by the above medications, you may benefit from a trial of Xolair/[id number] injection once a month Return in 6 mos documented in this encounter Progress Notes * Caitie Ramírez MD - 06/06/2019 10:00 AM EST CC: chronic urticaria HPI: Trina Ball is a 38 y.o. female with a PMH of invasive ductal carcinoma of the right breast(diagnosed 2017) s/p bilateral mastectomies and neoadjuvant chemo currently on tamoxifen, IgA deficiency, vitiligo, multiple drug allergies and urticaria who presents for the evaluation of chronic urticaria at the request of Radha Acuna. She has had urticaria for over 20 years. It occasionally flares up and occurs more frequently. Prior to her current flare she has not had a flare in over 10 years. She has associated itching and can also have associated lip swelling and eyelid swelling. She denies having any throat swelling or difficulty breathing. The urticaria usually lasts less than 24 hours and is not associated with any bruising or pain. She denies any associated LH or LOC. It is triggered by cold and hot temperatures and tends to fluctuate throughout the year. It is alsotriggered by exercise, sweating and tight clothing. She denies any personal history of thyroid disease. CBC and CMP in August 2018 were unremarkable. She has a sister with physical urticaria (triggered by cold and heat), Zuleyka's and vitiligo. She takes Zyrtec 10 mg twice daily, famotidine 10 mg at night, Benadryl 25 mg PRN and is prescribedprednisone tapers during her flares. Otherwise, she takes Zyrtec 10 mg daily. She still gets hives even with the prednisone though her angioedema related symptoms improve with prednisone. She is currently on tamoxifen which she started in May 2017 and has not noticed a change in her urticaria since then. She does have hot flashes with tamoxifen. She reports that it is hard to function when her urticaria flares up. She is interested in additional treatment including antihistamines but would like to know what is the cause of her flareups. She has been on Zyrtec, Benadryl, Claritin, Dee and Singulair in the past. She has only found Zyrtecto be effective. 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 Invasive ductal carcinoma of right breast C50.911 ??? Change in bowel habits R19.4 ??? Medication management Z79.899 ??? Breast CA C50.919 ??? Surgery follow-up Z09 ??? Chronic midline thoracic back pain M54.6, G89.29 ??? Breast swelling N63.0 ??? S/P breast reconstruction Z98.82 Past Medical History: Diagnosis Date ??? Environmental allergies ??? IgA deficiency ??? Immune deficiency disorder ??? Invasive ductal carcinoma of right breast 09/22/2016 ??? Multiple food allergies ??? Placenta previa ??? Vitiligo Past Surgical History: Procedure Laterality Date ??? APPENDECTOMY ??? SECTION ??? NASAL SINUS SURGERY ??? PRO BIOLOGIC IMPLANT FOR SOFT TISSUE REINFORCEMENT Right 03/15/2017 IMPLANTATION OF BIOLOGIC IMPLANT FOR SOFT TISSUE REINFORCEMENT (WRVU 3.65) performed by Ajit Zurita MD at [facility] MAIN OR ??? PRO BREAST RECONSTRUC W TISS EXPANDR Right 03/15/2017 BREAST RECONSTRUCTION, IMMEDIATE OR DELAYED, WITH TISSUE MECHANICAL PROCESS ENGINEER INCLUDING SUBSEQUENT EXPANSION-MICHAEL (WRVU 18.5) performed by Frantz Zurita MD at [facility] MAIN OR ??? PRO BX/REMV, LYMPH NODE, DEEP AXILL Right 03/15/2017 BIOPSY OR EXCISION OF LYMPH NODE(S), OPEN, DEEP AXILLARY NODE(S) (WRVU 6.43) performed by Ruby Negro MD at [facility] MAIN OR ??? PRO INTRAOP SENTINEL LYMPH ID W/DYE INJECTION Right 03/15/2017 INTRAOPERATIVE ID (MAPPING) SENTINEL LYMPH NODE,INCLUDES INJECTION (WRVU 2.5) performed by Ruby Negro MD at [facility] MAIN OR ??? PRO MASTECTOMY, SIMPLE, COMPLETE Bilateral 03/15/2017 MASTECTOMY, SIMPLE, COMPLETE-MICHAEL (WRVU 15.85) performed by Ruby Negro MD at [facility] MAIN OR ??? PRO REPLACE TISSUE MECHANICAL PROCESS ENGINEER Bilateral 06/09/2017 TISSUE MECHANICAL PROCESS ENGINEER REPLACEMENT, WITH PERMANENT PROSTHESIS, MICHAEL (WRVU 8.01) performed by Frantz Zurita MD at [facility] OSC ??? PRO SURGERY OF BREAST CAPSULE Bilateral 06/09/2017 BREAST, CAPSULOTOMY, OPEN PERIPROSTHETIC -MICHAEL (WRVU 9.17) performed by Frantz Zurita MD at [facility] OSC ??? TONSILLECTOMY ??? fluconazole (Diflucan) 100 mg Tablet ??? predniSONE (Deltasone) 10 mg Tablet ??? tamoxifen (NOLVADEX) 20 mg Tablet ??? lidocaine-prilocaine (EMLA) Cream ??? tretinoin (RETIN-A) 0.025 % Cream ??? acetaminophen (TYLENOL) 500 mg Tablet ??? polyethylene glycol (MIRALAX) 17 gram Powder in Packet ??? docusate sodium (COLACE) 100 mg Capsule ??? LACTOBACILLUS ACIDOPHILUS (PROBIOTIC ORAL) ??? multivitamin (THERAGRAN) Tablet ??? cetirizine (ZYRTEC) 10 mg tablet Current Outpatient Medications on File Prior to Visit Medication Sig Dispense Refill ??? fluconazole (Diflucan) 100 mg Tablet ??? predniSONE (Deltasone) 10 mg Tablet TK 6 TABS PO D X3D THEN 5 TABS D X3D THEN 4 TABS D X3D THEN3 TABS D X3D THEN 2 TABS D X3D THEN 1 T D X3D ??? tamoxifen (NOLVADEX) 20 mg Tablet Take 1 tablet by mouth daily. 90 tablet 3 ??? LACTOBACILLUS ACIDOPHILUS (PROBIOTIC ORAL) Take by mouth daily. ??? multivitamin (THERAGRAN) Tablet Take 1 tablet by mouth daily. Indications: has 500mg of calciumand 1600iu of Vit D ??? cetirizine (ZYRTEC) 10 mg tablet ??? lidocaine-prilocaine (EMLA) Cream Apply small amount of cream using q-tip on mediport site approx 30-60 minutes before access. Cover site with saran wrap. (Patient not taking: Reported on 06/06/2019) 30 [...] Capsule Take 100 mg by mouth daily. No current facility-administered medications on file prior to visit. -prednisone taper for hives, prescribed by PCP -zyrtec 10 mg BID - normally takes it once per day unless has flare -famotidine 10 mg QPM during flares -tamoxifen 20 mg daily Allergies Allergen Reactions ??? Aspirin Hives ??? Hydrocodone-Acetaminophen Hives ??? Tegaderm [Transparent Dressings] Dermatitis Use mepilex Pt states tegaderm is OK for short periods of time. ??? Tioconazole -hives with aspirin and hydrocone-acetaminophen -burning and discomfort with tioconazole -dairy (cheese) - Upsets stomach -did RAST testing through [facility], allergic to dairy and gluten -not avoiding gluten - no personal or family h/o celiac disease Family History Problem Relation Age of Onset ??? Myocardial Infarction Father 51 sudden ??? Autoimmune Disorder Sister vitiligo ??? Lymphoma Maternal Aunt ??? Myocardial Infarction Paternal Grandfather ??? Breast Cancer Neg Hx ??? Ovarian Cancer Neg Hx -Sister with urticaria, Hashimotos, vitilligo Social History Socioeconomic History ??? Marital status: Spouse name: Not on file ??? Number of children: Not on file ??? Years of education: Not on file ??? Highest education level: Not on file Occupational History ??? 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 Financial resource strain: Not on file ??? Food insecurity Worry: Not on file Inability: Not on file ??? Transportation needs Medical: Not on file Non-medical: Not on file Tobacco Use ??? Smoking status: Never Smoker ??? Smokeless tobacco: Never Used Substance and Sexual Activity ??? Alcohol use: Yes Comment: occasiona ??? Drug use: No ??? Sexual activity: Not on file Lifestyle ??? Physical activity Days per week: Not on file Minutes per session: Not on file ??? Stress: Not on file Relationships ??? Social connections Talks on phone: Not on file Gets together: Not on file Attends sabianism service: Not on file Active member of club or organization: Not on file Attends meetings of clubs or organizations: Not on file Relationship status: Not on file ??? Intimate partner violence Fear of current or ex partner: Not on file Emotionally abused: Not on file Physically abused: Not on file Forced sexual activity: Not on file Other Topics Concern ??? Not on file Social History Narrative ??? Not on file -Tobacco: smoked for a few years (3) about 16 years ago, <1 PPD -EtOH: occasional -Illicits: none PHYSICAL EXAM: BP 121/78 Pulse 64 Ht 155.5 cm (5' 1.22) Wt 51.4 kg (113 lb 5.1 oz) SpO2 100% BMI 21.26 kg/m?? Gen: AAOx3, no acute distress. Pleasant. HEENT: Tympanic membranes clear, no lesions, erythema, or drainage. Conjunctiva not injected. Nasalpassages show pink turbinates bilaterally. OP clear without erythema or cobblestoning. NECK: supple, no lymphadenopathy CVS: RRR, no m/r/g LUNGS: CTAB, no wheezing or rales ABD: soft, non-tender, non-distended SKIN: no rashes EXTREMITIES: warm and well-perfused, no edema RECENT LABS: Results for QUINN TRINA Piña ( ) as of 06/06/2019 09:02 Ref. Range 08/23/2018 12:29 WBC Latest Ref Range: 4.0 - 9.5 x10(3)/mcL 6.9 RBC Latest Ref Range: 4.00 - 5.21 x10(6)/mcL 4.48 Hemoglobin Latest Ref Range: 11.7 - 15.5 gm/dL 13.9 Hematocrit Latest Ref Range: 35.7 - 45.8 % 42.2 MCV Latest Ref Range: 82.6 - 94.4 fL 94.2 MCH Latest Ref Range: 27.1 - 32.0 pg 31.0 MCHC Latest Ref Range: 31.7 - 35.0 gm/dL 32.9 RDWSD Latest Ref Range: 37.0 - 46.0 fL 40.2 RDWCV Latest Ref Range: 11.5 - 14.1 % 11.6 Platelets Latest Ref Range: 145 - 357 x10(3)/mcL 165 MPV Latest Ref Range: 7.6 - 12.9 fL 10.0 nRBC % Auto Latest Units: % 0.0 nRBC Abs Auto Latest Ref Range: 0.000 - 0.000 x10(3)/mcL 0.000 Neutr Abs (ANC) Latest Ref Range: 1.70 - 6.10 x10(3)/mcL 4.96 Neutrophils % Latest Units: % 71.7 Immature Gran % Latest Units: % 0.30 Lymphocytes % Latest Units: % 20.3 Monocytes % Latest Units: % 5.5 Eosinophils % Latest Units: % 2.2 Basophils % Latest Units: % 0.0 Dalia Gran Abs Latest Ref Range: 0.00 - 0.04 x10(3)/mcL 0.02 Lymphocytes Abs Latest Ref Range: 0.9 - 3.2 x10(3)/mcL 1.4 Monocyte Abs Latest Ref Range: 0.3 - 0.9 x10(3)/mcL 0.4 Eosinophils Abs Latest Ref Range: 0.0 - 0.4 x10(3)/mcL 0.2 Basophils Abs Latest Ref Range: 0.0 - 0.1 x10(3)/mcL 0.0 Results for QUINN TRINA Piña ( ) as of 06/06/2019 09:02 Ref. Range 08/23/2018 12:29 Sodium Latest Ref Range: 135 - 145 mmol/L 144 Potassium Latest Ref Range: 3.5 - 5.0 mmol/L 3.6 Chloride Latest Ref Range: 98 - 107 mmol/L 105 CO2 Latest Ref Range: 22 - 31 mmol/L 25 Anion Gap Latest Ref Range: 5 - 15 mmol/L 14 BUN Latest Ref Range: 8 - 18 mg/dL 11 Creatinine Latest Ref Range: 0.70 - 1.20 mg/dL 0.80 eGFR Latest Ref Range: >=60 mL/min/1.73 m?? 95 eGFR Latest Ref Range: >=60 mL/min/1.73 m?? 110 Calcium Latest Ref Range: 8.5 - 10.5 mg/dL 9.5 Glucose Lvl Latest Ref Range: 65 - 199 mg/dL 79 Total Protein Latest Ref Range: 6.1 - 8.0 gm/dL 7.5 Albumin Latest Ref Range: 3.2 - 5.2 gm/dL 4.6 Total Bilirubin Latest Ref Range: 0.2 - 1.3 mg/dL 0.4 Alk Phos Latest Ref Range: 40 - 104 unit/L 54 AST Latest Ref Range: 0 - 30 unit/L 24 ALT Latest Ref Range: 0 - 30 unit/L 14 25-OH Vit D Total Latest Ref Range: 30 - 100 ng/mL 56 Results for TRINA BALL ( ) as of 06/06/2019 09:02 Ref. Range 01/14/2012 16:12 IgG Latest Ref Range: 700 - 1600 mg/dL 1012 IgA Latest Ref Range: 70 - 400 mg/dL <5 IgM Latest Ref Range: 40 - 230 mg/dL 135 Results for TRINA BALL ( ) as of 06/06/2019 09:02 Ref. Range 01/14/2012 16:12 Diphtheria Ab Latest Units: IU/mL 0.150 S Pneumo IgG 23 Unknown ... Tetanus Ab,IgG Latest Units: IU/mL 3.33 ASSESSMENT AND PLAN: Trina Ball is a 38 y.o. woman with a history of invasive ductal carcinoma of the right breast (diagnosed 2017) s/p bilateral mastectomies and neoadjuvant chemo currently on tamoxfen, IgA deficiency, vitiligo, and multiple drug allergies who presents for the evaluation of chronic urticaria. Given that it is triggered by heat, cold and pressure, she most likely has a physical urticaria. It is unlikely to be related to her breast cancer or tamoxifen as her symptomas have long preceded her breast CA diagnosis. Given the lack of associated ecchymosis, pain and hives lasting less than 24 hours,it is unlikely to be urticarial vasculitis. We discussed a stepwise approach to optimizing her treatment regimen including increasing her dosesof her zyrtec, famotidine and then adding singulair. We also discussed potentially adding Xolair toher regimen if the increased antihistamine doses and Singulair are not effective. -Zyrtec 10 mg BID -Famotidine 20 mg BID -Singulair 10 mg QPM Patient seen and discussed with Dr. Joyner. Caitie Ramírez MD * Jennifer Joyner MD - 06/06/2019 10:00 AM EST I have seen and examined the patient and reviewed the resident's above history and physical exam and I agree with the details as written. The assessment and plan were formulated in discussion with meand I agree with them as documented. Will also add: A/P: 38 yo F with chronic urticaria (hives) and angioedema (swelling). Counseled this is a form of autoimmune disease, not an allergy. It is more common in people with other autoimmune diseases. Hives and swelling often flare up for weeks, months, or even years at a time, and then may go away for awhile before coming back again. The exact cause of flare ups is not always known, but common triggers reported by patients can include pressure on the skin, heat, cold, medications, infections, and stress. Allergy testing is not recommended for this - there is no evidence that trying to identify and avoid allergic triggers has any effect on chronic hives. Recommend taking: - cetirizine (zyrtec) 10mg twice a day - if still having hives add famotidine (pepcid) 20mg twice a day - if still having hives add montelukast (singulair) 10mg at night - goal is no symptoms for 3 months, then taper medications If hives not controlled by the above medications, you may benefit from a trial of Xolair/[id number] injection once a month Return in 6 mos Jennifer Joyner MD documented in this encounter Plan of Treatment Upcoming Encounters Date Type Department Care Team (Late st Contact Info) Description 06/30/2024 4:30 PM EDT Office Visit Hematology [place] [address] Shilpi Gallegos MD [facility] DR HEMATOLOGY [place] [address] documented as of this encounter Visit Diagnoses Diagnosis Chronic urticaria Other specified urticaria Angioedema, initial encounter documented in this encounter Care Teams Bilingual Inside Sales Representative Relationship Specialty Start Date End Date Radha Acuna MD [address] [place] [address] [place] [address] PCP - General 08/07/11 documented as of this encounter
--- OUTSIDE RECORDS SUMMARY | 2024-04-07 16:38 | XMS_ITS | Encounter Summary ---
Author Organization [facility] [place] [address] Care Team Providers Care Supervisor Advice Name Role Phone Radha Acuna MD Primary Care Provider +1- [phone] Encounter Details Date Type Department Care Team (Late Contact Info) Description 07/02/2020 Refill Dermatology at [address] [id number] Edita Tee, [employer] Social History Tobacco Use Types Packs/Day Years [...] EDT Office Visit [place]ology [place] [address] Shilpi Gallegos MD [facility] [place] [address] documented as of this encounter Visit Diagnoses Not on filedocumented in this encounter Care Teams Supervisor Advice Relationship Specialty Start Date End Date Radha Acuna MD [address] [place] [address] [place] [address] PCP - General 08/07/11 documented as of this encounter
--- OUTSIDE RECORDS SUMMARY | 2024-04-07 16:38 | XMS_ITS | Encounter Summary ---
[place] [address] Care Team Providers Care Survey Coordinator Name Role Phone Radha Acuna MD Primary Care Provider +1- [phone] Encounter Details Date Type Department Care Team (Late st Contact Info) Description 10/22/2020 Telephone Hematology [place] [address] Odessa Guan Social History Tobacco [...] * Telephone Encounter - Odessa Guan - 10/25/2020 4:27 PM EDT Received call from Kirsty at [facility]'s office, letting me know that Trina is scheduled for her TVUS on 11/18/2020 at 2pm. * Telephone Encounter - Odessa Guan - 10/24/2020 10:51 AM EDT Called [facility] mail line and got to Yulissa in OBGYN, who got me to Kirsty. Kirsty let me know that she did get our fax and sent to Dr. Fowler to review/place internal order. She let me know that patient also called about this this am, so they are working on it. Kirsty took my phone number and will call me when scheduled. * Telephone Encounter - Odessa Guan - 10/22/2020 4:27 PM EDT Made call to [facility] at [phone] and was transferred to gynecology, where I spoke with Kirsty. She confirmed that patient sees Dr. Liban Fowler, and asked that I fax the TVUS order to her, and she could pass on to radiology. She said that she didn't know their fax# and only hadan internal phone number for them, but encouraged me to call her back to check in. Re-faxed 10/08 labs to [facility] lab at [phone], cb [phone]. documented in this encounter Plan of Treatment Upcoming Encounters Date Type Department Care Team (Late st Contact Info) Description 06/30/2024 4:30 PM EDT Office Visit Hematology [place] [address] Shilpi Gallegos MD [facility] DR HEMATOLOGY [place] [address] documented as of this encounter Visit Diagnoses Not on filedocumented in this encounter Care Teams Survey Coordinator Relationship Specialty Start Date End Date Radha Acuna MD [address] [place] [address] [place] [address] PCP - General 08/07/11 documented as of this encounter
--- OUTSIDE RECORDS SUMMARY | 2024-04-07 16:38 | XMS_ITS | Encounter Summary ---
Author Organization [facility]ly [facility] [place] [address] Care Team Providers Care Family Educator Name Role Phone Radha Acuna MD Primary Care Provider +1- [phone] Encounter Details Date Type Department Care Team (Late st Contact Info) Description 10/14/2021 Orders Only [place] [phone] [facility] [place] [address] Social History Tobacco Use Types Packs/Day Years [...] EDT Office Visit Hematology [place] [phone] [facility] DR [place] [address] documented as of this encounter Procedures Procedure Name Priority Date/Time Associated Diagnosis Comments QUANTIFERON-TB GOLD Routine 10/14/2021 3 :00 PM EDT documented in this encounter Results * QuantiFERON-TB Gold (10/14/2021 3:00 PM EDT) Quantiferon Nil 0.042 IU/mL [facility] QFT TB Ag1-Nil 0.047 IU/mL [facility] QFT TB Ag2-Nil 0.028 IU/mL [facility] Quantiferon Mitogen-Nil 9.958 IU/mL [facility] Quantiferon-TB Gold Negative Negative [facility] Quantiferon Tb Interp M. tuberculosis infection NOT likely A negative specimen should have a TB1 Ag minus Nil value and TB2 Ag minus Nil value of less than 0.35 IU/mL OR a TB1 Ag minus Nil or TB2 Ag minus Nil value greater than or equal to 0.35 IU/mL AND a TB Ag minus Nil value from the same tube of less than 25% of the Nil value. A negative specimen must also have a mitogen minus Nil value greater than or equal to 0.5 IU/mL. A negative QFT-Plus result does not preclude the possibility of M. tuberculosis infection. False negative results can occur due to stage of infection (specimen obtained prior to the development of immune response), co-morbid conditions which affect immune function, or other immunological factors. [facility] Blood Venous Draw / Unknown 10/14/2021 3:00 PM EDT 10/15/2021 11:30 AM EDT Narrative Resulting Agency Comment Spec In Lab Malu Carlisle APRN CHEMISTRY ORDERABLES [facility] [place] [address] documented in this encounter Visit Diagnoses Not on filedocumented in this encounter Care Teams Family Educator Relationship Specialty Start Date End Date Radha Acuna MD [address] [place] [address] [place] [address] PCP - General 08/07/11 documented as of this encounter
--- OUTSIDE RECORDS SUMMARY | 2024-04-07 16:38 | XMS_ITS | Encounter Summary ---
[facility] Address [facility] [place] [address] Care Team Providers Care Shift Leader Name Role Phone Radha Acuna MD Primary Care Provider +1- [phone] Reason for Visit * Reason Comments Follow-up Encounter Details Date Type Department Care Team (Late st Contact Info) Description 04/02/2020 4:30 PM EST Office Visit Hematology [place] [address] Shilpi Gallgeos MD [facility] [place] [address] Invasive ductal carcinoma of right breast; Chronic fatigue; Medication management Social History Tobacco Use Types [...] Sign Reading Time Taken Comments Blood Pressure 120/76 04/02/2020 4:04 PM EST Pulse 78 04/02/2020 4:04 PM EST Temperature 36.7 ??C (98.1 ??F) 04/02/2020 4:04 PM ES T Respiratory Rate 16 04/02/2020 4:04 PM EST Oxygen Saturation 100% 04/02/2020 4:04 PM EST Inhaled Oxygen Concentration - - Weight 48.7 kg (107 lb 6.4 oz) 04/02/2020 4:04 P M EST Height 155.7 cm (5' 1.3) 04/02/2020 4:04 PM EST Body Mass Index 20.1 04/02/2020 4:04 PM EST documented in this encounter Progress Notes * Shilpi Gallegos MD - 04/02/2020 4:30 PM EST Subjective: Patient ID: Trina Frances is a 39 y.o. female. Cc: breast cancer Interval history: Trina is doing well. 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 Menses are monthly but short, lasting 1-3 days. Warm at night but no hot flashes. Frustrated with memory problems and word finding, wants to know if there are supplements she can take, or the medications she sees ads for on TV. Sleeping 7 hours / day, but very tired at the end of the day after work, could go to bed much earlier. Also notes bloating and gasy feeling with belching and flatulence after eating any types of foods. No weightloss, nausea, vomiting, diarrhea or constipation. 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 On 09/11/16, she underwent a mammogram followed by ultrasound showing 2 right anca ast masses and right axilla node 1.2cm. Biopsy showed invasive ductal carcinoma, grade 2 with DCIS.HER2+ (FISH HER2:CEP-17 = 10), ER+/NJ+ (11-90%). A right axilla node biopsy was [...] IDCA. Focal DCIS high grade, no LVI. [id number] 09/11/16- MAMMO BREAST US LIMITED BILATERAL, MAMMO [...] cancer cells with immunostaining, Stain Intensity Moderate. [place] immunoreactivity: ??Positive 11-90% cancer cells with immunostaining, Stain Intensity Moderate to focal Strong. [id number] FISH is amplified. B - ??Needle biopsies: [...] isto Treated DCIS, 3 mm) Lymph Nodes ?[place] Lymph Nodes: ?? [place] lymph node biopsy performed ?Number of [place] Nodes Examined: ?8 ?Lymph Node Involvement: ?? None identified In summary, Trina Frances is a 36 yo woman with right breast IDC, ER/NJ+, [id number]+. Initial imaging suggested a disease process spanning ~7cm (though MRI and PET scan shows 2 discrete lesions measuring ~13mm and 1 cm). She was treated with neoadjuvant chemotherapy followed by mastectomy with residual microinvastion and 0 of 8 LNs involved. pT1mi ??pN0 Review of Systems Constitutional: Negative. No regular exercise program, not a fan. HENT: Negative. Eyes: Negative. Respiratory: Negative. Cardiovascular: Negative. Gastrointestinal: Negative. Endocrine: Negative. Genitourinary: Negative. Musculoskeletal: Negative. Skin: Negative. Has a mole on her upper left back she'd like me to check. Allergic/Immunologic: Negative. Neurological: Negative. Hematological: Negative. Psychiatric/Behavioral: Negative. Objective: Physical Exam Vitals signs and nursing note reviewed. HENT: Head: Normocephalic. [...] Content: Thought content normal. Judgment: Judgment normal. Assessment and Plan: No problem-specific Assessment & Plan notes found for this encounter. #1 Breast cancer--39 yo with stage I right breast cancer ER+ Her2+ doing well , except for some chronic issues with fatigue, memory etc. Data on supplements and medications for memory is not great, but there are several studies showing reduced dementia symptoms in the elderly due to regular or lifelong exercise. I strongly recommend she negotiate with her to allow her to create some extratime for exercise. This will likely improve her digestion as well. She will also focus on a more consistent eating and meal pattern which she admits is not regular at the moment. #2 Chemotherapy--monitoring for toxicity--resolved. #3 Fatigue--check labs, B12, TSH, CBC, CMP, vit D, she'd like them drawn at [facility] #4 Menopausal symptoms--pre-menopausal #5 Bone health--low risk for osteoporosis #6 Medication management --tamoxifen renewed #7 Benign appearing brown nevus upper left back, 8 x 6 mm, some irregularity to the brown pigment, she will check it and if it grows or changes will see dermatology for removal. Plan: labs locally F/u 6 months with JOANN or documented in this encounter Plan of Treatment Upcoming Encounters Date Type Department Care Team (Late st Contact Info) Description 06/30/2024 4:30 PM EDT Office Visit Hematology [place] [address] Shilpi Gallegos MD [facility] DR [place] [address] documented as of this encounter Visit Diagnoses Diagnosis Invasive ductal carcinoma of right breast Chronic fatigue Other malaise and fatigue Medication management Encounter for long-term (current) use of other medications documented in this encounter Care Teams Shift Leader Relationship Specialty Start Date End Date Radha Acuna MD [address] [place] [address] [place] [address] PCP - General 08/07/11 documented as of this encounter
--- OUTSIDE RECORDS SUMMARY | 2024-04-07 16:38 | XMS_ITS | Encounter Summary ---
Author Organization [facility] [place] [address] Care Team Providers Care Animal Geneticist Name Role Phone Radha Acuna MD Primary Care Provider [phone]- [phone] Reason for Visit * Reason Comments Follow Up Surgery S/p implant based re con - discuss possible exchange of implants Encounter Details Date Type Department Care Team (Late st Contact Info) Description 04/20/2022 2:45 PM EST Office [place] [address] Frantz Martínez MD [facility] [place] [address] Invasive ductal carcinoma of right breast Social [...] Progress Notes * Frantz Martínez MD - 04/20/2022 2:45 PM EST Plastic Surgery Follow Up Note Provider: Frantz Martínez M.D. 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 (Right mastectomy weight 240 grams) Complications: None reported Chemotherapy: Completed one course in January. Began Herceptin Radiation: Not indicated. Symmetry surgery: n/a HPI: Patient presents to clinic today for follow up and to discuss possible implant exchange. The patient reports that the right breast has a dent in it sometimes. She states that this is bothersome to her because it does not look natural. She is inquiring about gummy bear implants. Overall, she is happy with her results. She denies history of radiation. Examination: Patient is alert, conversant, comfortable, ambulating Breasts: Roland 1 capsule bilaterally. Mild contraction on the right breast laterally. Shortened scar with laterally displaced areola on the right breast. Surgical absent nipple on the right breast. Impression: Trina Frances is a 41 y.o. female who presents for follow up. I suspect the dent that is bothersome to her is intermittent folding of the implant, resulting in rippling. She is inquiring about switching to a cohesive gel implant. I explained that there is a risk of rippling with any implant. Additionally, I explained that the advantage of a cohesive gel implant is that it is shapedto maintain the form. This type of implant does feel more firm. She is also inquiring about smooth gummy bear implants. I explained that the texture helps prevent rotation in the pocket and there is no smooth version. We had a conor discussion in regards to the realistic expectations from implants and a potential revision surgery or implant replacement. I explained that the lifespan of the implants have a possibility to be in place longer than 10 years and that due to the patient's age she may have to have her implant exchange in the future. The possibility of the implant to rupture is unlikely but is possible. We discussed the nature of silicone implants and its durability that in the instance that the implant is compromised a very significant impact could cause this. When the implant becomes compromised and a leak occurs she may appreciate changes in the shape and size of her implant. To evaluate possible implant rupture imaging with a MRIwould be needed to confirm and diagnose. The patient's questions were acknowledged and answered to her satisfaction. After our discussion, the patient has opted to forgo surgical intervention at this time. In regards to the rippling, I recommend trying a compression/sports bra. Photos were obtained with signed informed consent. Plan: 1. Follow up: annually. I, Renae Martinez, have performed the documentation for this encounter in the presence of and acting as a scribe for FRANTZ MARTÍNEZ MD. I performed the services which were documented by the scribe, and I agree with the accuracy of the documentation in this encounter. FRANTZ MARTÍENZ MD documented in this encounter Plan of Treatment Upcoming Encounters Date Type Department Care Team (Late st Contact Info) Description 06/30/2024 4:30 PM EDT Office Visit Hematology [place] [address] Shilpi Gallegos MD [facility] DR [place] [address] documented as of this encounter Visit Diagnoses Diagnosis Invasive ductal carcinoma of right breast documented in this encounter Care Teams Animal Geneticist Relationship Specialty Start Date End Date Radha Acuna MD [address] [place] [address] [place] [address] PCP - General 08/07/11 documented as of this encounter
[2024-04-07 16:39] LABS: Bacteria Few HPF (Negative); C & S Indicated? No/Sq. Contamination; Casts Negative LPF (Negative); Crystals Negative HPF (Negative); Epithelial Cells Many HPF (Negative); Mucus Negative (Negative); Other Cells Few Renal (Negative); RBC 0-2 HPF (0-2)
--- OUTSIDE RECORDS SUMMARY | 2024-04-07 16:39 | XMS_ITS | Encounter Summary ---
Author Organization [facility] [place] [address] Care Team Providers Care Shallot Packer Name Role Phone Radha Acuna MD Primary Care Provider +1- [phone] Encounter Details Date Type Department Care Team (Late st Contact Info) Description 07/28/2017 [place] [phone] Destiney Diggs MSW Social History Tobacco Use Types Packs/Day Years [...] encounter Miscellaneous Notes * Telephone Encounter - Destiney Diggs MSW - 07/29/2017 1:48 PM EDT [facility] contacted pt and told her I spoke with a pt who is approximately her age and is on the clinicaltrial she is considering. Trina was given this pt's name and email address. P- [facility] will continue to provide support and resources. documented in this encounter Plan of Treatment Upcoming Encounters Date Type Department Care Team (Late st Contact Info) Description 06/30/2024 4:30 PM EDT Office Visit Hematology [place] [address] Shilpi Gallegos MD [facility] [address] [place] [address] documented as of this encounter Visit Diagnoses Not on filedocumented in this encounter Care Teams Shallot Packer Relationship Specialty Start Date End Date Radha Acuna MD [address] [place] [address] [place] [address] PCP - General 08/07/11 documented as of this encounter
--- OUTSIDE RECORDS SUMMARY | 2024-04-07 16:39 | XMS_ITS | Encounter Summary ---
Author Organization [facility] [place] [address] Care Team Providers Care Microbiology Coordinator Name Role Phone Radha Acuna MD Primary Care Provider +1- [phone] Reason for Referral * Physical Therapy (Routine) - Specialty Diagnoses / Procedures Referred By Clara cisneros Referred To Contact Physical Therapy Diagnoses Chronic right hip pain Shilpi Gallegos MD [facility] DR HEMATOLOGY [place] [address] Referral ID Status Reason Start Date Expiration Date V isits Requested Visits Authorized [id number] Evaluate and Treat 08/23/2018 02/19/2019 12 12 Reason for Visit * Reason Comments Follow-up Encounter Details Date Type Department Care Team (Late st Contact Info) Description 08/23/2018 11:30 AM EDT Office Visit Hematology [place] [address] Shilpi Gallegos MD [facility] [place] [address] Invasive ductal carcinoma of right breast; Chronic right hip pain Social History Tobacco Use Types Packs/Day Years [...] Sign Reading Time Taken Comments Blood Pressure 115/70 08/23/2018 11:46 AM EDT Pulse 67 08/23/2018 11:46 AM EDT Temperature 36.7 ??C (98.1 ??F) 08/23/2018 1 1:46 AM EDT Respiratory Rate 18 08/23/2018 11:4 6 AM EDT Oxygen Saturation 99% 08/23/2018 11: 46 AM EDT Inhaled Oxygen Concentration - - Weight 53.4 kg (117 lb 12.8 oz) 019 11:46 AM EDT Height 155.5 cm (5' 1.22) 08/23/2018 1 1:46 AM EDT Body Mass Index 22.1 08/23/2018 11:46 AM EDT documented in this encounter Progress Notes * Shilpi Gallegos MD - 08/23/2018 11:30 AM EDT Subjective: Patient ID: Trina Frances is a 38 y.o. female. Cc breast cancer Interval history: Trina is here for f/u. She is doing well, had gen surg and plastic surgery f/u today too. Still complaining of hip pain, in the right groin, hurts when she crosses her legs and sometimes while walking. Has not tried PT. Menses have been light and short but more crampy. Continues to have BRBPR if she doesn't take laxatives daily, would like to figure that out and get off of laxatives. Did have the flu over the winter, despite getting the flu shot, and has a mild sore throat today, otherwise feels she's doing well. 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 On 09/11/16, she underwent a mammogram followed by ultrasound showing 2 right anca ast masses and right axilla node 1.2cm. Biopsy showed invasive ductal carcinoma, grade 2 with DCIS.HER2+ (FISH HER2:CEP-17 = 10), ER+/ND+ (11-90%). A right axilla node biopsy was [...] IDCA. Focal DCIS high grade, no LVI. [id number] 09/11/16- MAMMO BREAST US LIMITED BILATERAL, MAMMO [...] cancer cells with immunostaining, Stain Intensity Moderate. [place] immunoreactivity: ??Positive 11-90% cancer cells with immunostaining, Stain Intensity Moderate to focal Strong. Hds2fdy FISH is amplified. B - ??Needle biopsies: [...] isto Treated DCIS, 3 mm) Lymph Nodes ?[place] Lymph Nodes: ?? [place] lymph node biopsy performed ?Number of [place] Nodes Examined: ?8 ?Lymph Node Involvement: ?? None identified In summary, Trina Frances is a 36 yo woman with right breast IDC, ER/ND+, [id number]+. Initial imaging suggested a disease process spanning ~7cm (though MRI and PET scan shows 2 discrete lesions measuring ~13mm and 1 cm). She was treated with neoadjuvant chemotherapy followed by mastectomy with residual microinvastion and 0 of 8 LNs involved. pT1mi ??pN0 Review of Systems Constitutional: Negative. HENT: Negative. Eyes: Negative. Respiratory: Negative. Cardiovascular: Negative. Gastrointestinal: Negative. Endocrine: Negative. Genitourinary: Negative. Musculoskeletal: Positive for arthralgias. Hip xray in May was normal. Skin: Negative. Allergic/Immunologic: Negative. Neurological: Negative. Hematological: [...] are equal, round, and reactive to light. EOM are normal. Neck: Normal range of motion. Neck supple. No JVD present. No tracheal deviation present. No thyromegaly present. Cardiovascular: Normal rate, regular rhythm, normal heart sounds and intact distal pulses. Exam reveals no gallop. No murmur heard. Pulmonary/Chest: Effort normal and breath sounds normal. Abdominal: Soft. Bowel sounds are normal. She exhibits no distension and no mass. There is no tenderness. There is no rebound and no guarding. No hernia. Musculoskeletal: Normal range of motion. She exhibits no edema, tenderness or deformity. No right hip or bone pain elicited on exam. Hip flexion, abduction, adduction did not cause pain. Tenderness to palpation in groin area. No adenopathy. Lymphadenopathy: She has no cervical adenopathy. Neurological: She is alert and oriented to person, place, and time. No cranial nerve deficit. She exhibits normal muscle tone. Coordination [...] #1 Breast cancer--38 yo with stage I er+ Her2 + breast cancer near path CR to NAC. Doing well on tamoxifen. PT referral for hip pain Naturopathy referral for GI complaints, may need a more natural bowel regimen to get off of laxatives. #2 Chemotherapy--monitoring for toxicity--resolved. #3 Fatigue--stable. #4 Menopausal symptoms--pre-menopausal. Menses may be more crampy due to tamoxifen. No bleeding in between periods or after intercourse. Up to date with routine pap smears. #5 Bone health--at higher risk for osteoporosis than average due to chemotherapy and hormonal changes, will get baseline next year. #6 Medication management --no new prescriptions. Will check lipids at next visit. Labs from May reviewed showing high Vit D, slightly elevated AST and Calcium, all resolved today. #Plan: continue tamoxifen F/u 6 months with labs. documented in this encounter Plan of Treatment Upcoming Encounters Date Type Department Care Team (Late st Contact Info) Description 06/30/2024 4:30 PM EDT Office Visit Hematology [place] [address] Shilpi Gallegos MD [facility] DR HEMATOLOGY [place] [address] Scheduled Referrals Name Type Priority Associated Diagnoses Orde r Schedule Referral to Physical Therapy Outpatient Referral Routine Chronic right hip pain Ordered: 08/23/2018 documented as of this encounter Visit Diagnoses Diagnosis Invasive ductal carcinoma of right breast Chronic right hip pain Pain in joint, pelvic region and thigh documented in this encounter Care Teams Microbiology Coordinator Relationship Specialty Start Date End Date Radha Acuna MD [address] [place] [address] [place] [address] PCP - General 08/07/11 documented as of this encounter
--- OUTSIDE RECORDS SUMMARY | 2024-04-07 16:39 | XMS_ITS | Encounter Summary ---
Author Organization [facility] [place] [address] Care Team Providers Care Merchant Banker Name Role Phone Radha Acuna MD Primary Care Provider +1- [phone] Reason for Visit * Reason Onset Date Comments Follow-up 02/25/2018 On Labs and comp laints of discomfort Encounter Details Date Type Department Care Team (Late st Contact Info) Description 02/25/2018 Telephone Hematology [place] [phone] Ashley Maldonado RN Follow-up (On Labs and complaints of discomfort) Social History Tobacco Use Types Packs/Day Years [...] encounter Miscellaneous Notes * Telephone Encounter - Ashley Maldonado RN - 02/25/2018 4:40 PM EST Call placed to Trina to let her know her labs are normal and that her anemia is resolved. Thyroid function is normal. Her complaints of hip pain are most likely due to tamoxifen and Dr. Gallegos suggests she try Tylenol and/or Advil. She was instructed to call with any worsening pain or trouble ambulating, she states understanding. documented in this encounter Plan of Treatment Upcoming Encounters Date Type Department Care Team (Late st Contact Info) Description 06/30/2024 4:30 PM EDT Office Visit Hematology [place] [address] Shilpi Gallegos MD [facility] DR HEMATOLOGY [place] [address] documented as of this encounter Visit Diagnoses Not on filedocumented in this encounter Care Teams Merchant Banker Relationship Specialty Start Date End Date Radha Acuna MD [address] [place] [address] [place] [address] PCP - General 08/07/11 documented as of this encounter
--- OUTSIDE RECORDS SUMMARY | 2024-04-07 16:39 | XMS_ITS | Encounter Summary ---
[place] [address] Care Team Providers Care Farm Mechanic Name Role Phone Radha Acuna MD Primary Care Provider [phone]- [phone] Reason for Referral * Diagnostic Test (Routine) - Closed Specialty Diagnoses / Procedures Referred By Contac t Referred To Contact Radiology Diagnoses Invasive ductal carcinoma of right breast Procedures IR [facility] Shilpi Wylie MD [facility] [place] [address] [facility] [place] [address] Referral ID Status Reason Start Date Expiration Date V isits Requested Visits Authorized [id number] Closed Specialty Service Requested 12/14/2017 11/03/2018 1 1 Reason for Visit * Diagnostic Test (Routine) - Closed Specialty Diagnoses / Procedures Referred By Contac t Referred To Contact Radiology Diagnoses Invasive ductal carcinoma of right breast Procedures IR [facility] Shilpi Wylie MD [facility] [place] [address] [facility] [place] [address] Referral ID Status Reason Start Date Expiration Date V isits Requested Visits Authorized [id number] Closed Specialty Service Requested 12/14/2017 11/03/2018 1 1 Encounter Details Date Type Department Care Team (Latest Contact Info) Description 12/16/2017 12:02 PM EDT - 12/16/2017 11:59 PM EDT Hospital [place] [address] Shilpi Gallegos MD [facility] [place] [address] Invasive ductal carcinoma of right breast Discharge [...] Sign Reading Time Taken Comments Blood Pressure 122/56 12/16/2017 3:00 PM EDT Pulse 100 12/16/2017 2:50 PM EDT Temperature 36.3 ??C (97.4 ??F) 12/16/2017 3:00 PM ED T Respiratory Rate 22 12/16/2017 3:00 PM EDT Oxygen Saturation 98% 12/16/2017 3:00 PM EDT Inhaled Oxygen Concentration - - Weight - - Height - - Body Mass Index - - documented in this encounter Discharge Instructions * Discharge Instructions* Cj Louie RN - 12/16/2017 2:43 PM EDT [facility] Vascular and Interventional Radiology Discharge Instructions for your Chest Port Removal Activity: ??? Relax for the next 24 hours Diet: ??? Drink plenty of fluids. ??? Resume your regular diet Bandage: There is a sterile dressing consisting of small gauze with a clear dressing (Tegaderm or IV 3000). This dressing should be left in place for 48 hours. If the clear dressing becomes loose youshould place tape over the edges to secure it in place. No tub baths, swimming or whirlpools for 1 week. No showering for 48 hours. Note: If you have steri-strips beneath your dressing, simply allow them to fall off. Do not peel them off. There may be [place] (skin glue) also, allow this to flake off. Do not pick this off. Bathing: Do not take a shower until 48 hours after your port is removed; after this time you may shower with the dressing in place, then remove it and pat your skin dry. After 48 hours, we recommend that you cover the area with THE AQUA GUARD PROVIDED for 1 week while showering, facing away from the shower stream. You may use a bandaid to cover the site after the 48 hours are up if there is any drainage. No tub baths, whirlpools or swimming for one week following port removal. Pain: Apply ice bag to site (s) at 30 minute intervals (30 minutes on and 30 minutes off) for 24 hours?? . May use as needed for pain and/or bruising after 24 hours. When to call your healthcare provider: ??? If you notice bleeding from the incision on your chest, you should lie flat and apply firm pressure over the site for 10-15 minutes, keeping the site covered and call your doctor. If you are still bleeding after 10-15 minutes, reapply pressure, and have someone drive you to the nearest Emergency Department, or call 911. ??? If you develop pain, redness, drainage or swelling at or around chest incision site. ??? If you develop a fever equal to or greater than 101 degrees Fahrenheit. When to call the Interventional Radiology Department: Please call with any questions or concerns. If it is during regular office hours, please call [phone]. If it is after regular office hours, or on weekends or holidays, please call [phone] and ask to speak to the Tag Writer construction accountant for Interventional Radiology. XX You have received medication during your procedure to help lesson anxiety and keep you comfortable. These medications affect judgement and reaction time. We recommend that you do not drive, operate equipment, sign any important documents, or smoke unattended for 24 hours following your procedure. Because of the sedation, be careful on stairs, as you may be unsteady on your feet. You may resume your regular diet as tolerated. IV site -- slight redness, or tenderness is normal, you can use a warm compress. If tenderness and redness increases or foul drainage occurs, please contact your M. D. Revised 04/26/15 documented in this encounter Medications at Time of Discharge Medication Sig Dispensed Refills Start Date End Date acetaminophen (TYLENOL) 500 mg Tablet Take 2 tablets by mouth every 8 hours. 30 tablet 03/16/2017 LACTOBACILLUS ACIDOPHILUS (PROBIOTIC ORAL) Take by mouth daily. multivitamin (THERAGRAN) TabletIndications:has 500mg of calcium and 1600iu of Vit D Take 1 tablet by mouth daily. Indications: has 500mg of calcium and 1600iu of Vit D lidocaine-prilocaine (EMLA) Cream Apply small amount of cream using q-tip on mediport site approx 30-60 minutes before access. Cover site with saran wrap. 30 g 11/04/2017 09/19/2019 tretinoin (RETIN-A) 0.025 % Cream apply to affected area at bedtime 0 10/25/2017 03/27/2022 fluconazole (DIFLUCAN) 100 mg Tablet Take 1 tablet by mouth daily for 3 days. 3 tablet 5 11/03/2017 05/16/2018 tamoxifen (NOLVADEX) 20 mg Tablet Take 1 tablet by mouth daily. 90 tablet 3 07/26/2017 05/23/2018 polyethylene glycol (MIRALAX) 17 gram Powder in Packet Take 17 g by mouth daily as needed. 09/19/2019 docusate sodium (COLACE) 100 mg Capsule Take 100 mg by mouth daily. 09/19/2019 cetirizine (ZYRTEC) 10 mg tablet 10/02/2008 06/06/2019 documented as of this encounter Progress Notes * Cj Louie RN - 12/10/2017 4:56 PM EDT [facility]AB[facility] Name: TRINA BALL Date of : 1980 AGE 37 y.o. [address]: [address] [place] [address] (home) Mobile: Telephone Information: Referring Provider: Shilpi Gallegos REASON FOR VISIT: Date/time of procedure: Pertinent info from Pre-call (if any): Labs ordered: Med's stopped: COPY/PASTE Procedure Plan from provider's note, bottom of MD workup Allergies Allergen Reactions ??? Aspirin Hives ??? Hydrocodone-Acetaminophen Hives ??? Tegaderm [Transparent Dressings] Dermatitis Use mepilex Pt states tegaderm is OK for short periods of time. ??? Tioconazole Pertinent PMH: Patient Active Problem List Diagnosis Code ??? 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 Invasive ductal carcinoma of right breast C50.911 ??? Change in bowel habits R19.4 ??? Medication management Z79.899 ??? Breast CA C50.919 ??? Surgery follow-up Z09 ??? Chronic midline thoracic back pain M54.6, G89.29 ??? Breast swelling N63.0 ??? S/P breast reconstruction Z98.82 Pertinent PSH: Past Surgical History: Procedure Laterality Date ??? APPENDECTOMY ??? SECTION ??? NASAL SINUS SURGERY ??? PRO BIOLOGIC IMPLANT FOR SOFT TISSUE REINFORCEMENT Right 03/15/2017 IMPLANTATION OF BIOLOGIC IMPLANT FOR SOFT TISSUE REINFORCEMENT (WRVU 3.65) performed by Ajit Zurita MD at [facility] OR ??? PRO BREAST RECONSTRUC W TISS EXPANDR Right 03/15/2017 BREAST RECONSTRUCTION, IMMEDIATE OR DELAYED, WITH TISSUE CORE OVEN TENDER INCLUDING SUBSEQUENT EXPANSION-MICHAEL (WRVU 18.5) performed by Frantz Zurita MD at [facility] OR ??? PRO BX/REMV, LYMPH NODE, DEEP AXILL Right 03/15/2017 BIOPSY OR EXCISION OF LYMPH NODE(S), OPEN, DEEP AXILLARY NODE(S) (WRVU 6.43) performed by Ruby Negro MD at [facility] OR ??? PRO INTRAOP SENTINEL LYMPH ID W/DYE INJECTION Right 03/15/2017 INTRAOPERATIVE ID (MAPPING) SENTINEL LYMPH NODE,INCLUDES INJECTION (WRVU 2.5) performed by Ruby Negro MD at [facility] OR ??? PRO MASTECTOMY, SIMPLE, COMPLETE Bilateral 03/15/2017 MASTECTOMY, SIMPLE, COMPLETE-MICHAEL (WRVU 15.85) performed by Ruby Negro MD at [facility] OR ??? PRO REPLACE TISSUE CORE OVEN TENDER Bilateral 06/09/2017 TISSUE CORE OVEN TENDER REPLACEMENT, WITH PERMANENT PROSTHESIS, MICHAEL (WRVU 8.01) performed by Frantz Zurita MD at [facility] ??? PRO SURGERY OF BREAST CAPSULE Bilateral 06/09/2017 BREAST, CAPSULOTOMY, OPEN PERIPROSTHETIC -MICHAEL (WRVU 9.17) performed by Frantz Zurita MD at [facility] ??? TONSILLECTOMY Date/Procedure ?Med's given/comments 09/29/16 Left chest Mediport Insertion Fentanyl 200 mcg IV, Versed 4 mg IV, Cefazolin 2 grams IV w/odextrose (for PET scan) 10/02/[address] bx. No meds 12/16/17 Mediport Removal? Ancef 2gm IV Versed 3 mg IV Fentanyl 150 mcg IV ? Laboratory Results: Lab Results Component Value Date CREATININE 0.74 11/02/2017 Lab Results Component Value Date K 3.9 11/02/2017 Lab Results Component Value Date PLATELET 167 11/02/2017 Medications: Prior to Admission medications Medication Sig Start Date End Date Taking? Authorizing Provider lidocaine-prilocaine (EMLA) Cream Apply small amount of cream using q-tip on mediport site approx 30-60 minutes before access. Cover site with saran sandraap. 11/04/17 Megan Sebastian APRN tretinoin (RETIN-A) 0.025 % Cream apply to affected area at bedtime 10/25/17 PROVIDER, HISTORICAL tamoxifen (NOLVADEX) 20 mg Tablet Take 1 tablet by mouth daily. 07/26/17 Megan Sebastian APRN acetaminophen (TYLENOL) 500 mg Tablet Take 2 tablets by mouth every 8 hours. Patient not taking: Reported on 11/03/2017 03/16/17 Niki Bass PA polyethylene glycol (MIRALAX) 17 gram Powder in Packet Take 17 g by mouth daily as needed. PROVIDER, HISTORICAL docusate sodium (COLACE) 100 mg Capsule Take 100 mg by mouth daily. PROVIDER, HISTORICAL LACTOBACILLUS ACIDOPHILUS (PROBIOTIC ORAL) Take by mouth daily. PROVIDER, HISTORICAL multivitamin (THERAGRAN) Tablet Take 1 tablet by mouth daily. PROVIDER, HISTORICAL cetirizine (ZYRTEC) 10 mg tablet 10/02/08 documented in this encounter H&P Notes * Micki Griffith APRN - 12/15/2017 9:43 AM EDT INTERVENTIONAL RADIOLOGY ADDENDUM TO NOTE OF CUONG PURVIS APRN: GEN: NAD CV: RRR No R/G/M PULM: CTA bilaterally ASA 3 MALLAMPATI 1 FOCUSED H&P and PRE-PROCEDURE NOTE: PCP: Radha Acuna MD Referring Provider: Shilpi Gallegos Planned Procedure: Mediport removal Procedure Indication: Chemotherapy complete, Mediport no longer needed Presenting Diagnosis/ Complaint: Trina Ball is a 37 y.o. female with a PMHx significant for right breast cancer, s/p bilateral mastectomy and chemotherapy (course now complete). IR has been consulted for removal of single lumen Mediport placed on 09/29/16. Past Medical/Surgical History: Patient Active Problem List Diagnosis Code ??? [...] 3.65) performed by Ajit Zurita MD at [facility] OR ??? PRO BREAST RECONSTRUC W TISS EXPANDR Right 03/15/2017 BREAST RECONSTRUCTION, IMMEDIATE OR DELAYED, WITH TISSUE CORE OVEN TENDER INCLUDING SUBSEQUENT EXPANSION-MICHAEL (WRVU 18.5) performed by Frantz Zurita MD at [facility] OR ??? PRO BX/REMV, LYMPH NODE, DEEP AXILL Right 03/15/2017 BIOPSY OR EXCISION OF LYMPH NODE(S), OPEN, DEEP AXILLARY NODE(S) (WRVU 6.43) performed by Ruby Negro MD at [facility] OR ??? PRO INTRAOP SENTINEL LYMPH ID W/DYE INJECTION Right 03/15/2017 INTRAOPERATIVE ID (MAPPING) SENTINEL LYMPH NODE,INCLUDES INJECTION (WRVU 2.5) performed by Ruby Negro MD at [facility] OR ??? PRO MASTECTOMY, SIMPLE, COMPLETE Bilateral 03/15/2017 MASTECTOMY, SIMPLE, COMPLETE-MICHAEL (WRVU 15.85) performed by Ruby Negro MD at [facility] OR ??? PRO REPLACE TISSUE CORE OVEN TENDER Bilateral 06/09/2017 TISSUE CORE OVEN TENDER REPLACEMENT, WITH PERMANENT PROSTHESIS, MICHAEL (WRVU 8.01) performed by Frantz Zurita MD at [facility] ??? PRO SURGERY OF BREAST CAPSULE Bilateral 06/09/2017 BREAST, CAPSULOTOMY, OPEN PERIPROSTHETIC -MICHAEL (WRVU 9.17) performed by Frantz Zurita MD at [facility] ??? TONSILLECTOMY Medications: Current Outpatient Prescriptions on File Prior to Encounter Medication Sig Dispense Refill ??? lidocaine-prilocaine (EMLA) Cream Apply small amount of cream using q-tip on mediport site approx 30-60 minutes before access. Cover site with saran wrap. 30 g 0 ??? tretinoin (RETIN-A) 0.025 % Cream apply to affected area at bedtime 0 ??? tamoxifen (NOLVADEX) 20 mg Tablet Take 1 tablet by mouth daily. 90 tablet 3 ??? acetaminophen (TYLENOL) 500 mg Tablet Take 2 tablets by mouth every 8 hours. (Patient not taking: Reported on 11/03/2017) 30 tablet 0 ??? polyethylene glycol (MIRALAX) 17 gram Powder in Packet Take 17 g by mouth daily as needed. ??? docusate sodium (COLACE) 100 mg Capsule Take 100 mg by mouth daily. ??? LACTOBACILLUS ACIDOPHILUS (PROBIOTIC ORAL) Take by mouth daily. ??? multivitamin (THERAGRAN) Tablet Take 1 tablet by mouth daily. ??? cetirizine (ZYRTEC) 10 mg tablet No current facility-administered medications on file prior to encounter. Allergies: Aspirin; Hydrocodone-acetaminophen; Tegaderm [transparent dressings]; and Tioconazole Social History and Habits: Social History Social History ??? Marital status: Spouse name: N/A ??? Number of children: N/A ??? 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 Smoking status: Never Smoker ??? Smokeless tobacco: Never Used ??? Alcohol use Yes Comment: occasiona ??? Drug use: No ??? Sexual activity: Not on file Other Topics Concern ??? Not on file Social History Narrative Significant Family History: Family History Problem Relation Age of Onset ??? Myocardial Infarction Father 51 sudden ??? Autoimmune Disorder Sister vitiligo ??? Lymphoma Maternal Aunt ??? Myocardial Infarction Paternal Grandfather ??? Breast Cancer Neg Hx ??? Ovarian Cancer Neg Hx Pertinent ROS: as per HPI Labs: Lab Results Component Value Date WBC 5.7 11/02/2017 ANC 0.86 (ExtLL) 02/19/2017 HCT 35.0 (L) 11/02/2017 PLATELET 167 11/02/2017 BUN 16 11/02/2017 CREATININE 0.74 11/02/2017 ALKPHOS 48 11/02/2017 AST 18 11/02/2017 ALBUMIN 4.1 11/02/2017 BILIDIR 0.1 09/16/2016 BILITOT 0.2 11/02/2017 ALT 14 11/02/2017 PROT 6.7 11/02/2017 Imaging: No Mediport imaging on file Physical Exam: Pending (to be performed in angio the day of procedure) ASA: Pending (to be assessed in angio the day of procedure) Mallampati Class: Pending (to be assessed in angio the day of procedure) Assessment: 37 y.o. female who presents to IR for Mediport removal. Plan: Plan Planned procedure: Mediport removal Labs to be performed day of procedure: No labs Sedation: moderate (conscious sedation) Prophylactic antibiotic : Ancef Additional medications for procedure: Lidocaine (Lidocaine with epinephrine ) Planned access site: L chest wall Position: Supine Consent: Pending 12/15/2017 documented in this encounter Nursing Notes * Cj Louie RN - 12/16/2017 2:13 PM EDT To procedure room IR 2 via stretcher. Pt remains on stretcher safely for procedure. All monitors, O2, safety strap in place. Med's per protocol. documented in this encounter Plan of Treatment Upcoming Encounters Date Type Department Care Team (Late st Contact Info) Description 06/30/2024 4:30 PM EDT Office Visit Hematology [place] [address] Shilpi Gallegos MD [facility] [place] [address] documented as of this encounter Procedures Procedure Name Priority Date/Time Associated Diagnosis Comments IR MEDIPORT REMOVAL Routine 12/16/2017 2 :59 PM EDT Invasive ductal carcinoma of right breast documented in this encounter Results * IR Mediport Removal (12/16/2017 2:59 PM EDT) Anatomical Region Laterality Modality X-Ray Angiograph y Narrative 12/16/2017 5:18 PM EDT VASCULAR AND INTERVENTIONAL RADIOLOGY PROCEDURE NOTE Procedure: Removal of RIGHT IJ chest port Indication for Procedure: ??37 y.o. female with a PMHx significant for right breast cancer, s/p bilateral mastectomy and chemotherapy (course now complete). IR has been consulted for removal of single lumen Mediport placed on 09/29/16. ?? Consent: After discussing the risks (including infection, hemorrhage, damage to surrounding structures) and benefits, the patient consented to the procedure. Method of Sedation: Due to the painful nature of the procedure, patient received split doses of intravenous fentanyl and versed from the IR nurse while pulse, pressure, and oxygen saturation were continuously monitored. Technique: Prior to beginning the procedure, a standard time out Moment of Truth was performed to confirm all meraz aspects (including the patient's identity, informed consent, medical record number, allergies, planned procedure and laterality if appropriate) all of which were correct. The right chest over the port was prepped sterile. Maximum sterile barrier technique was used through out the procedure. The skin anesthetized with 1% lidocaine as well as bupivacaine 0.25% with epinephrine. Blunt and sharp dissection used to remove, intact, the single lumen port. Removal of the port reservoir, hub, and catheter from the patient were confirmed by their identification outside the patient. The wound was copiously irrigated. The pocket was closed using a two layer technique with absorbable suture material (2-0 vicryl deep interrupted and 4-0 vicryl running subcuticular). Skin closed with indermil. Medications: Lidocaine 1% <10 mL SQ, BUpivacaine-EPINEPHrine 0.25 %-1:200,000 ??< 20 mL SQ, Versed 3 mg IV, Fentanyl 150 ??mcg IV Antibiotic Prophylaxis: ANCEF 2GM IV EBL: <5 cc Complications: ??No immediate Impression: Removal of RIJ chest port as described above I, Micki Griffith APRN, was present during the intraservice time as documented by the IR Nurse. Procedure performed by MICHELINE Crowe Dr. was present for procedure. Authorizing Provider Result Arianne Gallegos MD [facility] IR ORDERABLES documented in this encounter Visit Diagnoses Diagnosis Invasive ductal carcinoma of right breast documented in this encounter Administered Medications Inactive Administered Medications - up to 3 most recent administrations Medication Order MAR Action Action Date Dose Rate Site ceFAZolin (ANCEF) 2g in dextrose 5% 100 mL 2 g, Intravenous, ONCE, 1 dose, On Kaycee 12/16/17 at 1315, Administer over 30 Minutes, Redose every 3 hours if CrCl is greater than 20. Redose every 8 hours if CrCl is less than 20., Day of Surgery (Day of Procedure), Indication for (Active or Suspected): Prophylaxis New Bag 12/16/2017 2:08 PM EDT 2 g 200 mL/hr fentaNYL 50 mcg/mL multi-dose injection 25-50 mcg, Intravenous, EVERY 5 MIN PRN, Starting on Kaycee 18 at 1259, Until Kaycee 12/16/17 at 1457, Pain, per unit protocol, - Start dose 50 mcg (reduce dose to 25 mcg if history of sedation sensitivity). - Titration dose 25-50 mcg IV, (based on patient response) every 3 minutes PRN, to maintain procedural pain less than 2 per pain Scale. Maximum dose: 50 mcg/dose, 250 mcg/hour For use in Interventional Radiology (IR) only for procedural sedation with direct provider supervision and verbal order., Angio/IR (Intra-Procedure), Routine Given 12/16/2017 2:41 PM EDT 25 mcg Given 12/16/2017 2:35 PM EDT 25 mcg Given 12/16/2017 2:30 PM EDT 50 mcg lidocaine (XYLOCAINE) 10 mg/mL (1 %) injection 10 mg 10 mg, Subcutaneous, ONCE, 1 dose, On Kaycee 12/16/17 at 1315, For use in Interventional Radiology (IR) only for procedure with direct provider supervision and verbal order., Angio/IR (Intra-Procedure), Routine Given 12/16/2017 2:33 PM EDT 10 mg lidocaine-EPINEPHrine 1 %-1:100,000 injection 1 dose, Starting on Kaycee 12/16/17 at 1423, Until Kaycee 12/16/17 at 1436, Ana, Elham P.: cabinet override Given 12/16/2017 2:36 PM EDT 10 mLs midazolam (PF) (VERSED) 1 mg/mL multi-dose injection 0.5-1 mg 0.5-1 mg, Intravenous, EVERY 3 MIN PRN, Starting on Kaycee 12/16/17 at 1259, Until Kaycee 918 at 1457, Sleep, - Start dose; 1 mg (Reduce dose to 0.5 mg if history of sedation sensitivity). - Titration dose: 0.5 mg - 1 mg (based on patient response) every 3 minutes PRN to obtain RASS score of -3. Maximum dose: 1 mg per dose, 5 mg/hour. For use in Interventional Radiology (IR) only for procedural sedation with direct provider supervision and verbal order., Angio/IR (Intra-Procedure), Routine Given 12/16/2017 2:35 PM EDT 1 mg Given 12/16/2017 2:30 PM EDT 1 mg Given 12/16/2017 2:25 PM EDT 0.5 mg documented in this encounter Care Teams Farm Mechanic Relationship Specialty Start Date End Date Radha Acuna MD [address] [place] [address] [place] [address] PCP - General 08/07/11 documented as of this encounter
--- OUTSIDE RECORDS SUMMARY | 2024-04-07 16:39 | XMS_ITS | Encounter Summary ---
Author Organization [facility] [address] Care Team Providers Care Tube Cutter Operator Name Role Phone Radha Acuna MD Primary Care Provider [phone]- [phone] Encounter Details Date Type Department Care Team (Late st Contact Info) Description 05/03/2018 Orders Only [place] [phone] Hellen Wright Social History Tobacco Use Types Packs/Day Years [...] EDT Office Visit [place] [phone] Shilpi Gallegos MD [facility] [place] [address] documented as of this encounter Visit Diagnoses Not on filedocumented in this encounter Care Teams Tube Cutter Operator Relationship Specialty Start Date End Date Radha Acuna MD [address] [place] [address] [place] [address] PCP - General 08/07/11 documented as of this encounter
--- OUTSIDE RECORDS SUMMARY | 2024-04-07 16:39 | XMS_ITS | Encounter Summary ---
Author Organization [facility] [place] [address] Care Team Providers Care Petroleum Inspector Supervisor Name Role Phone Radha Acuna MD Primary Care Provider [phone]- [phone] Reason for Visit * Reason Comments Breast Cancer Chemotherapy * Treatment/Therapy Plan Authorization (Routine) - Closed Specialty Diagnoses / Procedures Referred By Contac t Referred To Contact Diagnoses Invasive ductal carcinoma of right breast Procedures TC TRASTUZUMAB, 10MG, INJECTION (HERCEPTIN) TC CHEMO ADMIN, IV INFUSION, UP TO 1HR, SINGLE/INITIAL DRUG TC CHEMO ADMIN, IV INFUSION, EA ADDL HR, SINGLE/INITIAL DRUG Shilpi Gallegos MD [facility] [address] HEMATOLOGY [place] [address] [facility] [address] [place] [address] Referral ID Status Reason Start Date Expiration Date Visits Re quested Visits Authorized [id number] Closed 03/31/2017 02/14/2019 17 17 Encounter Details Date Type Department Care Team (Latest Contact Info) Description 06/30/2017 6:50 AM EDT Hospital Encounter [place]ology [place] [address] Invasive ductal carcinoma of right breast Discharge [...] calcium and 1600iu of Vit D tamoxifen (NOLVADEX) 20 mg Tablet Take 20 mg by mouth daily. 07/26/2017 polyethylene glycol (MIRALAX) 17 gram Powder in Packet Take 17 g by mouth daily as needed. 09/19/2019 docusate sodium (COLACE) 100 mg Capsule Take 100 mg by mouth daily. 09/19/2019 lidocaine-prilocaine (EMLA) Cream Apply small amount of cream using q-tip on mediport site approx 30-60 minutes before access. Cover site with saran wrap. 30 g 3 09/30/2016 11/04/2017 cetirizine (ZYRTEC) 10 mg tablet 10/02/2008 06/06/2019 documented as of this encounter Progress Notes * Roseann Lockwood RN - 06/30/2017 8:58 AM EDT Patient Name: Trina Frances Patient Age: 37 y.o. Birthdate: 1980 Admit date: 06/30/2017 Attending Physician: No att. providers found TIME TREATMENT STARTED: 0759 TIME TREATMENT ENDED: 1000 Trina Frances, 37 y.o. female with diagnosis of right breast cancer is here for chemotherapy infusion of herceptin. PROTOCOL: no CYCLE: 2 DAY: 1 S: Pt. offers no complaints at this time. O: Chemotherapy orders independently verified for correct drug name, route and dosage per patient'sheight, weight and BSA by Saleem PENA and onsite pharmacist REACTIONS (DESCRIPTION, TIME, INTERVENTION AND EFFECTIVENESS) none A: Pt. Tolerated treatment well. Trina Frances confirms that all questions and issues have been addressed. P: Return to clinic as scheduled. documented in this encounter Plan of Treatment Upcoming Encounters Date Type Department Care Team (Late st Contact Info) Description 06/30/2024 4:30 PM EDT Office Visit [place]ology [place] [address] Shilpi Gallegos MD [facility] [address] HEMATOLOGY [place] [address] documented as of this encounter Visit Diagnoses Diagnosis Invasive ductal carcinoma of right breast documented in this encounter Administered Medications Inactive Administered Medications - up to 3 most recent administrations Medication Order MAR Action Action Date Dose Rate Site heparin, porcine 100 unit/mL flush 500 Units 500 Units, Intravenous, ONCE PRN, Starting on Wed06/30/17 at 0844, Until Kaycee 07/01/17 at 0436, Line Care, Refer to Intravenous (IV) Procedure: Accessing Implanted Vascular Access Devices (654) procedure and/or Intravenous (IV) Job Aid: Adult Flushing & Catheter Care (4589) job aid for additional information regarding guidelines and administration., Routine Given 06/30/2017 10:00 AM EDT 500 Units sodium chloride 0.9 % flush 5-20 mL 5-20 mL, Intravenous, EVERY 1 MIN PRN, Starting on Wed06/30/17 at 0844, Until Kaycee 07/01/17 at 0436, Line Care, Flush pertains to all indwelling lines. Flush per protocol found in the job aid using the link provided on this medication record. Refer to Intravenous (IV) Job Aid: Adult Flushing & Catheter Care (1285) job aid for additional information regarding guidelines and administration., Routine Given 06/30/2017 9:59 AM EDT 20 mLs TRASTuzumab (HERCEPTIN) 300 mg in sodium chloride 0.9% 264.3 mL infusion 300 mg, Intravenous, ONCE, 1 dose, On Wed06/30/17 at 1000, Administer over 30 Minutes, Dose Ordered = 310 mg (6 mg/kg). Pharmacist rounded dose per procedure. New Bag 06/30/2017 9:26 AM EDT 300 mg 528.6 mL/hr documented in this encounter Care Teams Petroleum Inspector Supervisor Relationship Specialty Start Date End Date Radha Acuna MD [address] [place] [address] [place] [address] PCP - General 08/07/11 documented as of this encounter
--- OUTSIDE RECORDS SUMMARY | 2024-04-07 16:39 | XMS_ITS | Encounter Summary ---
[place] [address] Care Team Providers Care Checker Name Role Phone Radha Acuna MD Primary Care Provider +1- [phone] Encounter Details Date Type Department Care Team (Late st Contact Info) Description 05/23/2018 Refill Hematology [place] [id number] Radha Riggins, RN Social History Tobacco Use Types Packs/Day [...] encounter Miscellaneous Notes * Telephone Encounter - Radha Riggins RN - 05/23/2018 11:26 AM EST Message received: Pharmacy- [facility] [place], [place] [address] tamoxifen (NOLVADEX) 20 mg Tablet Patient has 2 pills left. Would like to berry picker today if possible. Call back [phone] if you have any questions Plan: Refill pended to for review and e-scribe documented in this encounter Plan of Treatment Upcoming Encounters Date Type Department Care Team (Late st Contact Info) Description 06/30/2024 4:30 PM EDT Office Visit Hematology [place] [address] Shilpi Gallegos MD [facility] [address] HEMATOLOGY [place] [address] documented as of this encounter Visit Diagnoses Not on filedocumented in this encounter Care Teams Checker Relationship Specialty Start Date End Date Radha Acuna MD [address] [place] [address] [place] [address] PCP - General 08/07/11 documented as of this encounter
--- OUTSIDE RECORDS SUMMARY | 2024-04-07 16:39 | XMS_ITS | Encounter Summary ---
Author Organization [facility] Address [facility] [place] [address] Care Team Providers Care Contract Technician Name Role Phone Radha Acuna MD Primary Care Provider +1- [phone] Reason for Visit * Treatment/Therapy Plan Authorization (Routine) - Closed Specialty Diagnoses / Procedures Referred By Contgabriela t Referred To Contact Diagnoses Invasive ductal carcinoma of right breast Procedures TC TRASTUZUMAB, 10MG, INJECTION (HERCEPTIN) TC CHEMO ADMIN, IV INFUSION, UP TO 1HR, SINGLE/INITIAL DRUG TC CHEMO ADMIN, IV INFUSION, EA ADDL HR, SINGLE/INITIAL DRUG Shilpi Gallegos MD [facility] [address] [place]AT[place] [address] [facility] [address] [place] [address] Referral ID Status Reason Start Date Expiration Date Visits Re quested Visits Authorized [id number] Closed 03/31/2017 02/14/2019 17 17 Encounter Details Date Type Department Care Team (Latest Contact Info) Description 11/02/2017 7:30 AM EDT - 11/02/2017 7:45 AM EDT Hospital Encounter Hematology [place] [address] Invasive ductal carcinoma of right [...] of calcium and 1600iu of Vit D tretinoin (RETIN-A) 0.025 % Cream apply to affected area at bedtime 0 10/25/2017 03/27/2022 tamoxifen (NOLVADEX) 20 mg Tablet Take 1 [...] as of this encounter Progress Notes * Zaida Dawson RN - 11/02/2017 8:12 AM EDT Patient Name: Trina Frances Patient Age: 37 y.o. Birthdate: 1980 Admit date: 11/02/2017 Attending Physician: No att. providers found Access visit. See MAR and/or flowsheet. documented in this encounter Plan of Treatment Upcoming Encounters Date Type Department Care Team (Late st Contact Info) Description 06/30/2024 4:30 PM EDT Office Visit Hematology [place] [address] Shilpi Gallegos MD [facility] [address] [place]AT[place] [address] documented as of this encounter Procedures Procedure Name Priority Date/Time Associated Diagnosis Comments HEMOGRAM STAT 11/02/2017 8:05 AM EDT Invasive ductal carcinoma of right breast DIFFERENTIAL, AUTOMATED STAT 11/02/2017 8:05 AM EDT Invasive ductal carcinoma of right breast ESTRADIOL Routine 11/02/2017 8:05 AM EDT Invasive ductal carcinoma of right breast CBC (WITH DIFF) STAT 11/02/2017 8:05 AM EDT Invasive ductal carcinoma of right breast LUTEINIZING HORMONE Routine 11/02/2017 8 :05 AM EDT Invasive ductal carcinoma of right breast FOLLICLE STIMULATING HORMONE Routine 11/02/2017 8:05 AM EDT Invasive ductal carcinoma of right breast COMPREHENSIVE METABOLIC PANEL STAT 11/02/2017 8:05 AM EDT Invasive ductal carcinoma of right breast documented in this encounter Results * Differential, Automated (11/02/2017 8:05 AM EDT) Neutrophil % 56.8 % [facility] Neutrophil Absolute 3.22 1.70 - 6.10 x10(3)/[facility] Lymph % 31.1 % [facility] Lymphocytes Abs 1.8 0.9 - 3.2 x10(3)/[facility] Monocyte % 8.3 % [facility] Monocyte Abs 0.5 0.3 - 0.9 x10(3)/[facility] Eos % 3.4 % [facility] Eosinophils Abs 0.2 0.0 - 0.4 x10(3)/[facility] Basophil % 0.0 % [facility] Baso Absolute 0.0 0.0 - 0.1 x10(3)/[facility] Immature Gran % 0.40 % [facility] Comment: Immature granulocytes(IG's)percentage and absolute count will include metamyelocytes, myelocytes, and promyelocytes. Blood smears from CBCs yielding IG's will be scanned manually for concordance. If this scan disagrees with the automated IG or if promyelocytes are noted, a manual differential will be performed. Immature Gran Absolute 0.02 0.00 - 0.04 x10(3)/[facility] Blood specimen (specimen) 11/02/2017 8:05 AM EDT 11/02/2017 8:14 AM EDT Narrative Resulting Agency Comment Spec In Lab Shilpi Gallegos MD HEMATOLOGY ORDERABL ES Performing Organization Address City/State/[facility] Co de Phone Number [facility] [place] [address] * (ABNORMAL) Hemogram (11/02/2017 8:05 AM EDT) White Blood Cell 5.7 4.0 - 9.5 x10(3)/ L [facility] Red Blood Cell 3.75(L) 4.00 - 5.21 x10(6)/mc L [facility] Hemoglobin 11.9 11.7 - 15.5 gm/dL [facility] Hematocrit 35.0(L) 35.7 - 45.8 % [facility] Mean Cell Volume 93.3 82.6 - 94.4 fL [facility] Mean Cell Hemoglobin 31.7 27.1 - 32.0 pg [facility] Mean Cell Hemoglobin Concentration 34.0 31.7 - 35.0 gm/dL [facility] Platelet 167 145 - 357 x10(3)/mc L [facility] RDW Standard Deviation 40.9 37.0 - 46.0 fL [facility] RDW coefficient of variation 11.9 11.5 - 14.1 % [facility] Mean Platelet Volume 9.8 7.6 - 12.9 fL [facility] NRBC% auto 0.0 % [facility] NRBC Absolute 0.000 0.000 - 0.000 x10(3)/mc L [facility] Blood specimen (specimen) 11/02/2017 8:05 AM EDT 11/02/2017 8:14 AM EDT Narrative Resulting Agency Comment Spec In Lab Shilpi Gallegos MD HEMATOLOGY ORDERABL ES [facility] [place] [address] * Comprehensive metabolic panel (non-fasting) (11/02/2017 8:05 AM EDT) Glucose 82 65 - 199 mg/dL [facility] Comment:Diabetes: >=200 mg/d L plus symptoms Blood Urea Nitrogen 16 8 - 18 mg/dL [facility] Creatinine 0.74 0.70 - 1.20 mg/dL [facility] Sodium 140 135 - 145 mmol/L [facility] Potassium 3.9 3.5 - 5.0 mmol/L [facility] Comment: Please note: ??Patients with WBC >100,000 may have falsely elevated Potassium levels. ??For accurate Potassium quantification in these patients send serum separator tube (gold top) for subsequent determinations. ??Contact the Clinical Chemistry Laboratory if there are any questions. Chloride 103 98 - 107 mmol/L [facility] Carbon Dioxide 25 22 - 31 mmol/L [facility] Anion Gap 12 5 - 15 mmol/L [facility] Calcium 9.1 8.5 - 10.5 mg/dL [facility] Protein, Total 6.7 6.1 - 8.0 gm/dL [facility] Albumin 4.1 3.2 - 5.2 gm/dL [facility] Aspartate Aminotransferase 18 0 - 30 unit/L [facility] Alanine Aminotransferase 14 0 - 30 unit/L [facility] Alkaline Phosphatase 48 40 - 104 unit/L [facility] Bilirubin, Total 0.2 0.2 - 1.3 mg/dL [facility] Est Glomerular Filtration Rate 105 >=60 mL/min/1. 73 m?? [facility] Comment: The eGFR was calculated using the CKD-EPI equation. As with all creatinine based estimates of kidney function, eGFR values calculated with the CKD-EPI equation are not accurate in patients with acute kidney failure, extremes of body mass or the acutely ill. http://[employer]/[facility] [email or web address]/[facility] eGFR 122 >=60 mL/min/1. 73 m?? [facility] Comment: The eGFR was calculated using the CKD-EPI equation. As with all creatinine based estimates of kidney function, eGFR values calculated with the CKD-EPI equation are not accurate in patients with acute kidney failure, extremes of body mass or the acutely ill. http://[employer]/[facility] [email or web address]/[facility] Blood specimen (specimen) 11/02/2017 8:05 AM EDT 11/02/2017 8:14 AM EDT Narrative Resulting Agency Comment Spec In Lab Shilpi Gallegos MD CHEMISTRY ORDERABLE S Performing Organization Address City/State/[facility] Co de Phone Number [facility] [place] [address] * Luteinizing Hormone (11/02/2017 8:05 AM EDT) Luteinizing Hormone 13.4 mlU/ML [facility] Comment: Reference ranges: ?? Females ?? Follicular: ? 2.4-12.6 mIU/mL ?? Ovulation: ?14.0-95.6 mIU/mL ?? Luteal: ? 1.0-11.4 mIU/mL ?? Postmenopausal: ? 7.7-58.5 mIU/mL Blood specimen (specimen) 11/02/2017 8:05 AM EDT 11/02/2017 8:14 AM EDT Narrative Resulting Agency Comment Spec In Lab Shilpi Gallegos MD CHEMISTRY ORDERABLE S Performing Organization Address [facility] Phone Number [facility] [place] [address] * Follicle Stimulating Hormone (11/02/2017 8:05 AM EDT) Follicle Stimulating Hormone 5.7 mlU/ML [facility] Comment: Reference Ranges: Females: Follicular: ? 3.5-12.5 mIU/mL Ovulation: ?4.7-21.5 mIU/mL Luteal: ? 1.7-7.7 mIU/mL Postmenopausal: 25.8-134.8 mIU/mL Blood specimen (specimen) 11/02/2017 8:05 AM EDT 11/02/2017 8:14 AM EDT Narrative Resulting Agency Comment Spec In Lab Shilpi Gallegos MD CHEMISTRY ORDERABLE S Performing Organization Address [facility] Phone Number [facility] [place] [address] * Estradiol (11/02/2017 8:05 AM EDT) Estradiol 327 pg/mL [facility] Comment: Reference ranges: Males: Adult: ? 11 to 43 pg/mL Females: Non- females: ?Follicular: ??12-233 pg/mL ?Ovulation: ?? 41-398 pg/mL ?Luteal: ?22-341 pg/mL ?Postmenopausal: ?? <5 -138 pg/mL females: ?1st trimester: ??154-3243 pg/mL ?2nd trimester: ??1561-50624 pg/mL ?3rd trimester: ??8525- >03169 pg/mL Blood specimen (specimen) 11/02/2017 8:05 AM EDT 11/02/2017 8:14 AM EDT Narrative Resulting Agency Comment Spec In Lab Shilpi Gallegos MD CHEMISTRY ORDERABLE S [facility] [place] [address] documented in this encounter Visit Diagnoses Diagnosis Invasive ductal carcinoma of right breast documented in this encounter Administered Medications Inactive Administered Medications - up to 3 most recent administrations Medication Order MAR Action Action Date Dose Rate Site sodium chloride 0.9 % flush 5-20 mL 5-20 mL, Intravenous, EVERY 1 MIN PRN, Starting on Wed11/02/17 at 0756, Until Wed11/03/17 at 0438, Line Care, Flush pertains to all indwelling lines. Flush per protocol found in the job aid using the link provided on this medication record. Refer to Intravenous (IV) Job Aid: Adult Flushing & Catheter Care (9159) job aid for additional information regarding guidelines and administration., Routine Given 11/02/2017 8:12 AM EDT 20 mLs documented in this encounter Care Teams Contract Technician Relationship Specialty Start Date End Date Radha Acuna MD [address] [place] [address] [place] [address] PCP - General 08/07/11 documented as of this encounter
--- OUTSIDE RECORDS SUMMARY | 2024-04-07 16:39 | XMS_ITS | Encounter Summary ---
Author Organization [facility] Address [facility] [place] [address] Care Team Providers Care Ceramic Worker Name Role Phone Radha Acuna MD Primary Care Provider +1- [phone] Reason for Visit * Reason Comments Follow-up Encounter Details Date Type Department Care Team (Late st Contact Info) Description 02/03/2018 4:00 PM EDT Office Visit Hematology [place] [address] Shilpi Gallegos MD [facility] [address] [place] [address] Change in bowel habits; Malignant neoplasm of upper-outer quadrant of right breast in female, estrogen receptor positive; Anemia due to chronic blood loss Social History Tobacco Use Types Packs/Day Years [...] Sign Reading Time Taken Comments Blood Pressure 112/71 02/03/2018 3:35 PM EDT Pulse 75 02/03/2018 3:35 PM EDT Temperature 36.3 ??C (97.3 ??F) 02/03/2018 3:35 PM ED T Respiratory Rate 18 02/03/2018 3:35 PM EDT Oxygen Saturation 100% 02/03/2018 3:35 PM EDT Inhaled Oxygen Concentration - - Weight 53.7 kg (118 lb 6.4 oz) 02/03/2018 3:35 P M EDT Height 157 cm (5' 1.81) 02/03/2018 3:35 PM EDT Body Mass Index 21.79 02/03/2018 3:35 PM EDT documented in this encounter Progress Notes * Shilpi Gallegos MD - 02/03/2018 4:00 PM EDT Subjective: Patient ID: Trina Frances is a 37 y.o. female. Cc: breast cancer Interval history: Trina is doing pretty well. Now works closer to home but every day. Rudi is awayon a hunting trip so she's also a single parent right now. Oldest child is 9, busy with soccer, etc. Still feels very tired, and has memory issues. Also notes more pMS symptoms than she ever used to get. Periods are light and short, but more crampy with some deep pelvic pain right before menses, also notes pain with intercourse right before menses begins. 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 On 09/11/16, she underwent a mammogram followed by ultrasound showing 2 right anca ast masses and right axilla node 1.2cm. Biopsy showed invasive ductal carcinoma, grade 2 with DCIS.HER2+ (FISH HER2:CEP-17 = 10), ER+/WY+ (11-90%). A right axilla node biopsy was [...] IDCA. Focal DCIS high grade, no LVI. [id number] Tamoxifen started 04/29 Herceptin completed 12/16/17 09/11/16- MAMMO BREAST US LIMITED BILATERAL, MAMMO [...] cancer cells with immunostaining, Stain Intensity Moderate. WY immunoreactivity: ??Positive 11-90% cancer cells with immunostaining, Stain Intensity Moderate to focal Strong. [id number] FISH is amplified. B - ??Needle biopsies: [...] isto Treated DCIS, 3 mm) Lymph Nodes ?Whitefish Lymph Nodes: ?? Whitefish lymph node biopsy performed ?Number of Whitefish Nodes Examined: ?8 ?Lymph Node Involvement: ?? None identified In summary, Trina Frances is a 36 yo woman with right breast IDC, ER/WY+, [id number] Initial imaging suggested a disease process spanning ~7cm (though MRI and PET scan shows 2 discrete lesions measuring ~13mm and 1 cm). She was treated with neoadjuvant chemotherapy followed by mastectomy with residual microinvastion and 0 of 8 LNs involved. pT1mi ??pN0 Review of Systems Constitutional: Positive for fatigue. Would like to sleep 8-12 hours/ day, but can't due to work and kids. Does try to at least once / week, and sleep as long as she wants to. HENT: Negative. Eyes: Negative. Respiratory: Negative. Cardiovascular: Negative. Gastrointestinal: Positive for abdominal distention. Feels bloated and gas-y a lot. Also some blood in the stool, just a dab on TP, but tries to stop laxatives and gets more bleeding,so she's afraid to stop them. Endocrine: Negative. Genitourinary: Positive for dyspareunia and menstrual problem. Negative for vaginal pain. Musculoskeletal: Negative. Skin: Negative. Eyebrows and eyelashes have not recovered comletely. Allergic/Immunologic: Negative. Neurological: Negative. Hematological: Negative. Psychiatric/Behavioral: Negative. Memory problems , especially at work, but not affecting work performance. Objective: Physical Exam Constitutional: She is oriented to person, place, and time. She appears well- nourished. No distress. HENT: Head: Normocephalic and atraumatic. Right Ear: External ear normal. Left Ear: External ear normal. Nose: Nose normal. Mouth/Throat: Oropharynx is clear and moist. No oropharyngeal exudate. Eyes: Conjunctivae and EOM are normal. Pupils are equal, round, and reactive to light. Right eye exhibits no discharge. No scleral icterus. Neck: Normal range of motion. Neck supple. No JVD present. No tracheal deviation present. No thyromegaly present. Cardiovascular: Normal rate. Pulmonary/Chest: Effort normal and breath sounds normal. She has no rales. She exhibits no tenderness. Abdominal: Soft. Bowel sounds are normal. She exhibits no distension and no mass. There is no tenderness. There is no rebound and no guarding. Musculoskeletal: Normal range of motion. She exhibits no edema or tenderness. Lymphadenopathy: She has no cervical adenopathy. Neurological: She is alert and oriented to person, place, and time. She has normal reflexes. She displays normal reflexes. No cranial nerve deficit. She exhibits normal muscle tone. Coordination normal. Skin: Skin is warm and dry. No rash noted. She is not diaphoretic. No erythema. No pallor. Psychiatric: She has a normal mood and affect. Her behavior is normal. Judgment and thought contentnormal. Nursing note and vitals reviewed. Echo at [facility] normal ef 65% Assessment and Plan: No problem-specific Assessment & Plan notes found for this encounter. #1 Breast cancer--Stage I right breast cancer er/pr/her2 +, doing well on tamoxifen. Slowly recovering from chemo, memory and fatigue are the last to improve. Tamoxifen could be making menses more crampy despite advertising specialist flow. Discussed ovarian suppression + AI, but data in her2 + setting is not as strong as with ER+ her2 neg studies. She struggled a lot with hot flashes and menopausal symptoms during chemotherapy, not anxious to increase those again. Recommend tamoxifen alone for up to 5 years, then revisit AI +/- AI. #2 Chemotherapy--monitoring for toxicity--hemoglobin still a little low in October, will recheck due to persistent fatigue. Also check TSH. Echo normal, no s/sx of heart failure, low risk patient for late complications from trastuzumab. #3 Fatigue--persistent, encouraged to sleep as much as she wants to at least once/ week; should gradually improve. #4 Menopausal symptoms--improved. #5 Bone health--not discussed today. #6 Medication management --no new prescriptions. Plan: continue tamoxifen Check CBC and TSH at [facility], I'll send a message back via [employer] with results. F/u 6 months, with labs. 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
--- OUTSIDE RECORDS SUMMARY | 2024-04-07 16:39 | XMS_ITS | Encounter Summary ---
Author Organization [facility] [place] [address] Care Team Providers Care Supervisor Warping Department Name Role Phone Radha Acuna MD Primary Care Provider +1- [phone] Reason for Visit * Reason Comments Breast Cancer Chemotherapy * Treatment/Therapy Plan Authorization (Routine) - Closed Specialty Diagnoses / Procedures Referred By Contac t Referred To Contact Diagnoses Invasive ductal carcinoma of right breast Procedures TC TRASTUZUMAB, 10MG, INJECTION (HERCEPTIN) TC CHEMO ADMIN, IV INFUSION, UP TO 1HR, SINGLE/INITIAL DRUG TC CHEMO ADMIN, IV INFUSION, EA ADDL HR, SINGLE/INITIAL DRUG Shilpi Gallegos MD [facility] [place] [address] [facility] Hem Onc [address] [place] [address] Referral ID Status Reason Start Date Expiration Date Visits Re quested Visits Authorized [id number] Closed 03/31/2017 02/14/2019 17 17 Encounter Details Date Type Department Care Team (Latest Contact Info) Description 10/12/2017 8:00 AM EDT - 10/12/2017 11:59 PM EDT Hospital Encounter Hematology [place] [address] Invasive ductal carcinoma of right [...] Sign Reading Time Taken Comments Blood Pressure 98/60 10/12/2017 8:35 AM EDT Pulse 62 10/12/2017 8:35 AM EDT Temperature 36.6 ??C (97.9 ??F) 10/12/2017 8:35 AM ED T Respiratory Rate 16 10/12/2017 8:35 AM EDT Oxygen Saturation 100% 10/12/2017 8:35 AM EDT Inhaled Oxygen Concentration - - Weight 54.3 kg (119 lb 12.8 oz) 10/12/2017 8:35 AM EDT Height 154.8 cm (5' 0.95) 10/12/2017 8:35 AM ED T Body Mass Index 22.68 10/12/2017 8:35 AM EDT documented in this encounter Medications at Time [...] D tamoxifen (NOLVADEX) 20 mg Tablet Take 1 [...] Progress Notes * Roseann Lockwood RN - 10/12/2017 11:14 AM EDT Patient Name: Trina Frances Patient Age: 37 y.o. Birthdate: 1980 Admit date: 10/12/2017 Attending Physician: Britta att. providers found TIME TREATMENT STARTED: 0835 TIME TREATMENT ENDED: 09 Trina Farnces, 37 y.o. female with diagnosis of right breast cancer is here for chemotherapy infusion of herceptin. PROTOCOL: no CYCLE: 3 DAY: 43 S: Pt. offers no complaints at this [...] EDT Office Visit H[place]ology [place] [address] Shilpi Gallegos MD [facility] [place] [address] documented as of this encounter Visit Diagnoses Diagnosis Invasive ductal carcinoma of right breast documented in this encounter Administered Medications Inactive Administered Medications - up to 3 most recent administrations Medication Order MAR Action Action Date Dose Rate Site heparin, porcine 100 unit/mL flush 500 Units 500 Units, Intravenous, ONCE PRN, Starting on Wed10/12/17 at 0800, Until Wed10/13/17 at 0437, Line Care, Refer to Intravenous (IV) Procedure: Accessing Implanted Vascular Access Devices (364) procedure and/or Intravenous (IV) Job Aid: Adult Flushing & Catheter Care (6127) job aid for additional information regarding guidelines and administration., Routine Given 10/12/2017 9:53 AM EDT 500 Units sodium chloride 0.9 % flush 5-20 mL 5-20 mL, Intravenous, EVERY 1 MIN PRN, Starting on Wed10/12/17 at 0800, Until Wed10/13/17 at 0437, Line Care, Flush pertains to all indwelling lines. Flush per protocol found in the job aid using the link provided on this medication record. Refer to Intravenous (IV) Job Aid: Adult Flushing & Catheter Care (8086) job aid for additional information regarding guidelines and administration., Routine Given 10/12/2017 9:53 AM EDT 10 mLs TRASTuzumab (HERCEPTIN) 300 mg in sodium chloride 0.9% 264.3 mL infusion 300 mg, Intravenous, ONCE, 1 dose, On Wed10/12/17 at 0900, Administer over 30 Minutes, Dose Ordered = 310 mg (6 mg/kg). Pharmacist rounded dose per procedure. New Bag 10/12/2017 9:18 AM EDT 300 mg 528.6 mL/hr documented in this encounter Care Teams Supervisor Warping Department Relationship Specialty Start Date End Date Radha Acuna MD [address] [place] [address] PCP - General 08/07/11 documented as of this encounter
--- OUTSIDE RECORDS SUMMARY | 2024-04-07 16:39 | XMS_ITS | Encounter Summary ---
[place] [address] Care Team Providers Care Truckload Checker Name Role Phone Radha Acuna MD Primary Care Provider +1- [phone] Reason for Visit * Reason Comments Breast Problem Encounter Details Date Type Department Care Team (Late st Contact Info) Description 09/28/2017 1:00 PM EDT Office [place] [address] Mandie Gonzalez, MICHELINE Breast mass; History of breast cancer Social History Tobacco [...] this encounter Progress Notes * Mandie Gonzalez, CUSTOMER ENGINEER - 09/28/2017 1:00 PM EDT Trina Frances??is a 37 y.o.??pt of Dr Negro who returns today for evaluation of a mass above herright implant. She has been aware of a prominent rib in this area but the other day she noticed thearea to be much more prominent while looking in the mirror. No trauma to the area and it is not painful. No other concerns. On 07/2016, she noted a tender right breast lump without skin changes or nipple discharge. ??On 09/11/16, she underwent a mammogram followed by ultrasound showing 2 right breast masses and right axilla node 1.2cm. ??Biopsy showed invasive ductal carcinoma, grade 2 with DCIS. ??HER2+ (FISH HER2:CEP-17 = 10), ER+/AR+ (11-90%). ??A right axilla node biopsy was [...] at the time of surgery and tissue human resources temp followed by implant based reconstruction. She was seen by Dr Zurita earlier today. Partial path response with residual foci all [...] place.No rashes or nodules. No axillary adenopathy. Above her right implant there is a prominent rib with soft fullness over the rib. Less prominent corresponding rib on the left. Assessment/Plan:Prominent rib and soft tissue on the right may be normal asymmetry but will work upwith US to rule out local recurrance as this is a change to her exam. US later today. I will call her after imaging is done to discuss follow up. She agrees. documented in this encounter Plan of Treatment Upcoming Encounters Date Type Department Care Team (Late st Contact Info) Description 06/30/2024 4:30 PM EDT Office Visit Hematology [place] [address] Shilpi Gallegos MD [facility] [address] [place] [address] documented as of this encounter Visit Diagnoses Diagnosis Breast mass Lump or mass in breast History of breast cancer Personal history of malignant neoplasm of breast documented in this encounter Care Teams Truckload Checker Relationship Specialty Start Date End Date Radha Acuna MD [address] [place] [address] [place] [address] PCP - General 08/07/11 documented as of this encounter
--- OUTSIDE RECORDS SUMMARY | 2024-04-07 16:39 | XMS_ITS | Encounter Summary ---
[place] [address] Care Team Providers Care Appliquer Name Role Phone Radha Acuna MD Primary Care Provider +1- [phone] Encounter Details Date Type Department Care Team (Late st Contact Info) Description 08/13/2017 Notes [place] [id number] Destiney Diggs MSW Social History Tobacco Use [...] as of this encounter Progress Notes * Destiney Diggs MSW - 08/13/2017 11:59 PM EDT CCM gave pt a gift certificate for a massage at [facility] and a gift certificate for a manicure at [facility]. P- [facility] will continue to provide support and resources to pt. documented in this encounter Plan of Treatment Upcoming Encounters Date Type Department Care Team (Late st Contact Info) Description 06/30/2024 4:30 PM EDT Office Visit Hematology [place] [address] Shilpi Gallegos MD [facility] DR HEMATOLOGY [place] [address] documented as of this encounter Visit Diagnoses Not on filedocumented in this encounter Care Teams Appliquer Relationship Specialty Start Date End Date Radha Acuna MD [address] [place] [address] [place] [address] PCP - General 08/07/11 documented as of this encounter
--- OUTSIDE RECORDS SUMMARY | 2024-04-07 16:39 | XMS_ITS | Encounter Summary ---
Author Organization [facility] [place] [address] Care Team Providers Care Field Contact Technician Name Role Phone Radha Acuna MD Primary Care Provider +1- [phone] Reason for Visit * Reason Comments Chemotherapy * Treatment/Therapy Plan Authorization (Routine) - Closed Specialty Diagnoses / Procedures Referred By Contgabriela t Referred To Contact Diagnoses Invasive ductal carcinoma of right breast Procedures TC TRASTUZUMAB, 10MG, INJECTION (HERCEPTIN) TC CHEMO ADMIN, IV INFUSION, UP TO 1HR, SINGLE/INITIAL DRUG TC CHEMO ADMIN, IV INFUSION, EA ADDL HR, SINGLE/INITIAL DRUG Shilpi Gallegos MD [facility] DR HEMATOLOGY [place] [address] [facility] [place] Hem Onc [address] [place] [address] Referral ID Status Reason Start Date Expiration Date Visits Re quested Visits Authorized [id number] Closed 03/31/2017 02/14/2019 17 17 Encounter Details Date Type Department Care Team (Latest Contact Info) Description 11/02/2017 7:46 AM EDT - 11/02/2017 11:59 PM EDT Hospital Encounter [place]ology [place] [address] Invasive ductal carcinoma of right [...] Sign Reading Time Taken Comments Blood Pressure 109/59 11/02/2017 9:00 AM EDT Pulse 70 11/02/2017 9:00 AM EDT Temperature 37.1 ??C (98.8 ??F) 11/02/2017 9:00 AM ED T Respiratory Rate 16 11/02/2017 9:00 AM EDT Oxygen Saturation 99% 11/02/2017 9:00 AM EDT Inhaled Oxygen Concentration - - Weight 54.2 kg (119 lb 6.4 oz) 11/02/2017 9:00 A M EDT Height 156 cm (5' 1.42) 11/02/2017 9:00 AM EDT Body Mass Index 22.26 11/02/2017 9:00 AM EDT documented in this encounter Medications [...] as of this encounter Progress Notes * Susan Prince RN - 11/02/2017 8:48 AM EDT Patient Name: Trina Frances Patient Age: 37 y.o. Birthdate: 1980 Admit date: 11/02/2017 Attending Physician: Britta att. providers found Start time: 0900 End time: 1005 Trina Frances, 37 y.o. female with diagnosis of breast cancer is here for chemotherapy infusion ofherceptin. PROTOCOL: no CYCLE: 4 DAY: 1 S: I just seem to feel tired all the time. Working 30 hours per week. States finger and toe nailsare still brittle, but better. Seeing Dr. Gallegos tomorrow to discuss hormone lab results. O: Chemotherapy orders independently verified for correct drug name, route and dosage per patient'sheight, weight and BSA by Amanda Prince RN and onsite pharmacist REACTIONS (DESCRIPTION, TIME, INTERVENTION AND EFFECTIVENESS) none A: Pt. Tolerated treatment well. Trina Frances confirms that all questions and issues have been addressed. P: Return to clinic as scheduled documented in this encounter Plan of Treatment Upcoming Encounters Date Type Department Care Team (Late st Contact Info) Description 06/30/2024 4:30 PM EDT Office Visit [place]ology [place] [address] Shilpi Gallegos MD [facility] [place] [address] documented as of this encounter Visit Diagnoses Diagnosis Invasive ductal carcinoma of right breast documented in this encounter Administered Medications Inactive Administered Medications - up to 3 most recent administrations Medication Order MAR Action Action Date Dose Rate Site heparin, porcine 100 unit/mL flush 500 Units 500 Units, Intravenous, ONCE PRN, Starting on Wed11/02/17 at 0833, Until Wed11/03/17 at 0438, Line Care, Refer to Intravenous (IV) Procedure: Accessing Implanted Vascular Access Devices (654) procedure and/or Intravenous (IV) Job Aid: Adult Flushing & Catheter Care (5702) job aid for additional information regarding guidelines and administration., Routine Given 11/02/2017 9:57 AM EDT 500 Units sodium chloride 0.9 % flush 5-20 mL 5-20 mL, Intravenous, EVERY 1 MIN PRN, Starting on Wed11/02/17 at 0833, Until Wed11/03/17 at 0438, Line Care, Flush pertains to all indwelling lines. Flush per protocol found in the job aid using the link provided on this medication record. Refer to Intravenous (IV) Job Aid: Adult Flushing & Catheter Care (6431) job aid for additional information regarding guidelines and administration., Routine Given 11/02/2017 9:56 AM EDT 20 mLs TRASTuzumab (HERCEPTIN) 300 mg in sodium chloride 0.9% 264.3 mL infusion 300 mg, Intravenous, ONCE, 1 dose, On Wed11/02/17 at 1000, Administer over 30 Minutes, Dose Ordered = 310 mg (6 mg/kg). Pharmacist rounded dose per procedure. New Bag 11/02/2017 9:22 AM EDT 300 mg 528.6 mL/hr documented in this encounter Care Teams Field Contact Technician Relationship Specialty Start Date End Date Radha Acuna MD [address] [place] [address] [place] [address] PCP - General 08/07/11 documented as of this encounter
--- OUTSIDE RECORDS SUMMARY | 2024-04-07 16:39 | XMS_ITS | Encounter Summary ---
Author Organization Formerly [facility] [place] [address] Care Team Providers Care Crystal Attacher Name Role Phone Radha Acuna MD Primary Care Provider [phone]- [phone] Reason for Visit * Reason Comments Chemotherapy * Treatment/Therapy Plan Authorization (Routine) - Closed Specialty Diagnoses / Procedures Referred By Contgabriela t Referred To Contact Diagnoses Invasive ductal carcinoma of right breast Procedures TC TRASTUZUMAB, 10MG, INJECTION (HERCEPTIN) TC CHEMO ADMIN, IV INFUSION, UP TO 1HR, SINGLE/INITIAL DRUG TC CHEMO ADMIN, IV INFUSION, EA ADDL HR, SINGLE/INITIAL DRUG Shilpi Gallegos MD [facility] [address] [place] [address] [facility] [place] [facility] [address] [place] [address] Referral ID Status Reason Start Date Expiration Date Visits Re quested Visits Authorized [id number] Closed 03/31/2017 02/14/2019 17 17 Encounter Details Date Type Department Care Team (Latest Contact Info) Description 09/01/2017 7:02 AM EDT - 09/01/2017 11:59 PM EDT Hospital Encounter Hematology [place] [address] Invasive ductal carcinoma of right [...] Sign Reading Time Taken Comments Blood Pressure 104/60 09/01/2017 7:53 AM EDT Pulse 64 09/01/2017 7:53 AM EDT Temperature 36.3 ??C (97.3 ??F) 09/01/2017 7:53 AM ED T Respiratory Rate 17 09/01/2017 7:53 AM EDT Oxygen Saturation 100% 09/01/2017 7:53 AM EDT Inhaled Oxygen Concentration - - Weight 52.9 kg (116 lb 9.6 oz) 09/01/2017 7:53 A M EDT Height 154.8 cm (5' 0.95) 09/01/2017 7:53 AM ED T Body Mass Index 22.07 09/01/2017 7:53 AM EDT documented in this encounter Discharge Instructions * Patient Instructions* Libby Almanza RN - 09/01/2017 8:03 AM EDT Recent Results (from the past 24 hour(s)) Comprehensive metabolic panel (non-fasting) Result Value Ref Range Glucose Lvl 89 65 - 199 mg/dL BUN 22 (H) 8 - 18 mg/dL Creatinine 0.83 0.70 - 1.20 mg/dL Sodium 140 135 - 145 mmol/L Potassium 3.7 3.5 - 5.0 mmol/L Chloride 102 98 - 107 mmol/L CO2 26 22 - 31 mmol/L Anion Gap 12 5 - 15 mmol/L Calcium 9.2 8.5 - 10.5 mg/dL Total Protein 7.1 6.1 - 8.0 gm/dL Albumin 4.4 3.2 - 5.2 gm/dL AST 20 0 - 30 unit/L ALT 13 0 - 30 unit/L Alk Phos 56 40 - 104 unit/L Total Bilirubin 0.3 0.2 - 1.3 mg/dL Estimated GFR >60 >=60 Hemogram Result Value Ref Range WBC 5.1 4.0 - 9.5 x10(3)/mcL RBC 3.81 (L) 4.00 - 5.21 x10(6)/mcL Hemoglobin 12.4 11.7 - 15.5 gm/dL Hematocrit 35.1 (L) 35.7 - 45.8 % MCV 92.1 82.6 - 94.4 fL MCH 32.5 (H) 27.1 - 32.0 pg MCHC 35.3 (H) 31.7 - 35.0 gm/dL Platelets 154 145 - 357 x10(3)/mcL RDWSD 39.3 37.0 - 46.0 fL RDWCV 11.7 11.5 - 14.1 % MPV 9.7 7.6 - 12.9 fL nRBC % Auto 0.0 % nRBC Abs Auto 0.000 0.000 - 0.000 x10(3)/mcL Differential, Automated Result Value Ref Range Neutrophils % 53.7 % Neutr Abs (ANC) 2.75 1.70 - 6.10 x10(3)/mcL Lymphocytes % 33.8 % Lymphocytes Abs 1.7 0.9 - 3.2 x10(3)/mcL Monocytes % 8.6 % Monocyte Abs 0.4 0.3 - 0.9 x10(3)/mcL Eosinophils % 3.5 % Eosinophils Abs 0.2 0.0 - 0.4 x10(3)/mcL Basophils % 0.0 % Basophils Abs 0.0 0.0 - 0.1 x10(3)/mcL Immature Gran % 0.40 % Dalia Gran Abs 0.02 0.00 - 0.04 x10(3)/mcL documented in this encounter Medications at Time [...] as of this encounter Progress Notes * Libby Almanza RN - 09/01/2017 7:34 AM EDT Patient Name: Trina Frances Patient Age: 37 y.o. Birthdate: 1980 Admit date: 09/01/2017 Attending Physician: Britta att. providers found TIME TREATMENT STARTED: 7;50 TIME TREATMENT ENDED: 9;35 Trina Frances, 37 y.o. female with diagnosis of breast cancer is here for chemotherapy infusion ofherceptin. PROTOCOL: no CYCLE: 3 WEEK: n/a DAY: 1 S: Pt. offers no complaints. O: Chemotherapy orders independently verified for drug name, route and dosage per patient's height,weight and BSA by Libby Almanza RN and pharmacist on site. IV access:mediport previously accessed, post infusion flushed with NS/heparin then de accessedf Premeds:none Chemo:herceptin REACTIONS (DESCRIPTION, TIME, INTERVENTION AND EFFECTIVENESS) none A: Pt. Tolerated treatment well. Trina Frances confirms that all questions and issues have been addressed. P: Return to clinic per schedule. documented in this encounter Plan of Treatment Upcoming Encounters Date Type Department Care Team (Late st Contact Info) Description 06/30/2024 4:30 PM EDT Office Visit Hematology [place] [address] Shilpi Gallegos MD [facility] [address] [place] [address] documented as of this encounter Visit Diagnoses Diagnosis Invasive ductal carcinoma of right breast documented in this encounter Administered Medications Inactive Administered Medications - up to 3 most recent administrations Medication Order MAR Action Action Date Dose Rate Site heparin, porcine 100 unit/mL flush 500 Units 500 Units, Intravenous, ONCE PRN, Starting on Wed09/01/17 at 0742, Until Kaycee 09/02/17 at 0441, Line Care, Refer to Intravenous (IV) Procedure: Accessing Implanted Vascular Access Devices (654) procedure and/or Intravenous (IV) Job Aid: Adult Flushing & Catheter Care (8048) job aid for additional information regarding guidelines and administration., Routine Given 09/01/2017 9:30 AM EDT 500 Units sodium chloride 0.9 % flush 5-20 mL 5-20 mL, Intravenous, EVERY 1 MIN PRN, Starting on Wed09/01/17 at 0742, Until Kaycee 09/02/17 at 0441, Line Care, Flush pertains to all indwelling lines. Flush per protocol found in the job aid using the link provided on this medication record. Refer to Intravenous (IV) Job Aid: Adult Flushing & Catheter Care (9735) job aid for additional information regarding guidelines and administration., Routine Given 09/01/2017 9:29 AM EDT 20 mLs TRASTuzumab (HERCEPTIN) 300 mg in sodium chloride 0.9% 264.3 mL infusion 300 mg, Intravenous, ONCE, 1 dose, On Wed09/01/17 at 0900, Administer over 30 Minutes, Dose Ordered = 6 mg/kg. Dose rounded by provider. New Bag 09/01/2017 8:55 AM EDT 300 mg 528.6 mL/hr documented in this encounter Care Teams Crystal Attacher Relationship Specialty Start Date End Date Radha Acuna MD [address] [place] [address] [place] [address] PCP - General 08/07/11 documented as of this encounter
--- OUTSIDE RECORDS SUMMARY | 2024-04-07 16:39 | XMS_ITS | Encounter Summary ---
Author [facility] [place] [address] Care Team Providers Care Hot Wort Settler Name Role Phone Radha Acuna MD Primary Care Provider [phone]- [phone] Reason for Referral * Diagnostic Test (Routine) - Closed Specialty Diagnoses / Procedures Referred By Clara cisneros Referred To Contact Radiology Diagnoses Invasive ductal carcinoma of right breast Procedures IR [facility] Removal Shilpi Gallegos MD [facility] [place] [address] [place] [address] Referral ID Status Reason Start Date Expiration Date V isits Requested Visits Authorized [id number] Closed Specialty Service Requested 12/14/2017 11/03/2018 1 1 Reason for Visit * Reason Comments Follow-up Encounter Details Date Type Department Care Team (Late st Contact Info) Description 11/03/2017 8:00 AM EDT Office Visit Hematology [place] [id number] Shilpi Gallegos MD [facility] DR [place]OLOGY [place] [address] Invasive ductal carcinoma of right breast Social [...] Sign Reading Time Taken Comments Blood Pressure 110/63 11/03/2017 8:00 AM EDT Pulse 64 11/03/2017 8:00 AM EDT Temperature 36.8 ??C (98.2 ??F) 11/03/2017 8:00 AM ED T Respiratory Rate 16 11/03/2017 8:00 AM EDT Oxygen Saturation 99% 11/03/2017 8:00 AM EDT Inhaled Oxygen Concentration - - Weight 54 kg (119 lb) 11/03/2017 8:00 AM EDT Height 156 cm (5' 1.42) 11/03/2017 8:00 AM EDT Body Mass Index 22.18 11/03/2017 8:00 AM EDT documented in this encounter Progress Notes * Shilpi Gallegos MD - 11/03/2017 8:00 AM EDT Images from the original note were not included. Subjective: Patient ID: Trina Ball is a 37 y.o. female. Cc: breast cancer Interval history: Trina is here for routine follow up. She is doing pretty well but notices a lot of fatigue, much more than she is usually used to. She is working 2 long days a week, not back to back,but she is up at 4 am and home at 9 pm. Busy with the kids, getting them to camp, etc. Is planning to join an exercise class, takes walks with the kids, but currently no regular exercise or yoga routine. Menses have resumed, normal and monthly for the last 3 months. Sleeping 7-8 hours/ night with fatigue at work. Has had 2 yeast infections over the last 3 months, improved with diflucan for 3 days. Occasional migraines similar to previous, improved with one excedrin. Bump on right chest wall which ultrasound showed to be a normal rib, has not changed. Still taking colace daily to prevent anal tears, recurs when she stops the colace. HPI Clinical Right breast cancer, overlapping sites, clinical [id number] ER/AR + HER2 + ratio 10.0 Right breast axillary ultrasound biopsy negative PET scan negative ? Superior cervical node abnormality, biopsy 10/02/16 benign. BRCA panel testing negative for germline mutations. Trina Ball is a 36 y.o. woman who presents with newly diagnosed right breast cancer. In 07/2016,she noted a tender right breast lump without skin changes or nipple discharge. 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 On 09/11/16, she underwent a mammogram followed by ultrasound showing 2 right anca ast masses and right axilla node 1.2cm. Biopsy showed invasive ductal carcinoma, grade 2 with DCIS.HER2+ (FISH HER2:CEP-17 = 10), ER+/AR+ (11-90%). A right axilla node biopsy was [...] grade 3 thrombocytopenia, no transfusions required. Surgery with near complete response to NAC. 0/8 lymph nodes without evidence of treatment effect; Tumor bed approx 1.5 cm with complete response except for focal residual micro- invasive IDCA. Focal DCIS high grade, no LVI. [id number] 09/11/16- MAMMO BREAST US LIMITED BILATERAL, MAMMO [...] cancer cells with immunostaining, Stain Intensity Moderate. AR immunoreactivity: ??Positive 11-90% cancer cells with immunostaining, Stain Intensity Moderate to focal Strong. [id number] FISH is amplified. B - ??Needle biopsies: [...] isto Treated DCIS, 3 mm) Lymph Nodes ?Dudley Lymph Nodes: ?? Dudley lymph node biopsy performed ?Number of Dudley Nodes Examined: ?8 ?Lymph Node Involvement: ?? None identified In summary, Trina Ball is a 36 yo woman with right breast IDC, ER/AR+, [id number] Initial imaging suggested a disease process spanning ~7cm (though MRI and PET scan shows 2 discrete lesions measuring ~13mm and 1 cm). She was treated with neoadjuvant chemotherapy followed by mastectomy with residual microinvastion and 0 of 8 LNs involved. pT1mi ??pN0 Review of Systems Constitutional: Negative. HENT: Negative. Eyes: Negative. Respiratory: Negative. Cardiovascular: Negative. Gastrointestinal: Negative. Endocrine: Negative. Hot flashes improved. Genitourinary: Negative. Musculoskeletal: Negative. Skin: Positive for color change. Vitiligo lesions on her ankles improved. Allergic/Immunologic: Negative. Neurological: Negative. Hematological: Negative. Psychiatric/Behavioral: Negative. Frustrated by poor memory. Objective: Physical Exam Constitutional: She is oriented to person, place, and time. She appears well- developed and well-nourished. No distress. HENT: Head: Normocephalic and atraumatic. Right Ear: External ear normal. Left Ear: External ear normal. Mouth/Throat: Oropharynx is clear and moist. Eyes: Conjunctivae and EOM are normal. Pupils are equal, round, and reactive to light. Right eye exhibits no discharge. Left eye exhibits no discharge. No scleral icterus. Neck: Normal range of motion. Neck supple. No JVD present. No tracheal deviation present. No thyromegaly present. Cardiovascular: Normal rate, regular rhythm, normal heart sounds and intact distal pulses. Exam reveals no gallop and no friction rub. No murmur heard. Pulmonary/Chest: Effort normal and breath sounds normal. No respiratory distress. She has no wheezes. She has no rales. She exhibits no tenderness. Right breast exhibits no inverted nipple, no [...] displays normal reflexes. No cranial nerve deficit. Coordination normal. Skin: Skin is warm and dry. No rash noted. She is not diaphoretic. No erythema. No pallor. Psychiatric: She has a normal mood and affect. Her behavior is normal. Judgment and thought contentnormal. Nursing note and vitals reviewed. Results for TRINA BALL ( ) as of 11/03/2017 08:54 Ref. Range 11/02/2017 08:05 WBC Latest Ref Range: 4.0 - 9.5 x10(3)/mcL 5.7 RBC Latest Ref Range: 4.00 - 5.21 x10(6)/mcL 3.75 (L) Hemoglobin Latest Ref Range: 11.7 - 15.5 gm/dL 11.9 Hematocrit Latest Ref Range: 35.7 - 45.8 % 35.0 (L) MCV Latest Ref Range: 82.6 - 94.4 fL 93.3 MCH Latest Ref Range: 27.1 - 32.0 pg 31.7 MCHC Latest Ref Range: 31.7 - 35.0 gm/dL 34.0 RDWSD Latest Ref Range: 37.0 - 46.0 fL 40.9 RDWCV Latest Ref Range: 11.5 - 14.1 % 11.9 Platelets Latest Ref Range: 145 - 357 x10(3)/mcL 167 MPV Latest Ref Range: 7.6 - 12.9 fL 9.8 nRBC % Auto Latest Units: % 0.0 nRBC Abs Auto Latest Ref Range: 0.000 - 0.000 x10(3)/mcL 0.000 Neutr Abs (ANC) Latest Ref Range: 1.70 - 6.10 x10(3)/mcL 3.22 Neutrophils % Latest Units: % 56.8 Immature Gran % Latest Units: % 0.40 Lymphocytes % Latest Units: % 31.1 Monocytes % Latest Units: % 8.3 Eosinophils % Latest Units: % 3.4 Basophils % Latest Units: % 0.0 Dalia Gran Abs Latest Ref Range: 0.00 - 0.04 x10(3)/mcL 0.02 Lymphocytes Abs Latest Ref Range: 0.9 - 3.2 x10(3)/mcL 1.8 Monocyte Abs Latest Ref Range: 0.3 - 0.9 x10(3)/mcL 0.5 Eosinophils Abs Latest Ref Range: 0.0 - 0.4 x10(3)/mcL 0.2 Basophils Abs Latest Ref Range: 0.0 - 0.1 x10(3)/mcL 0.0 Sodium Latest Ref Range: 135 - 145 mmol/L 140 Potassium Latest Ref Range: 3.5 - 5.0 mmol/L 3.9 Chloride Latest Ref Range: 98 - 107 mmol/L 103 CO2 Latest Ref Range: 22 - 31 mmol/L 25 Anion Gap Latest Ref Range: 5 - 15 mmol/L 12 BUN Latest Ref Range: 8 - 18 mg/dL 16 Creatinine Latest Ref Range: 0.70 - 1.20 mg/dL 0.74 eGFR Latest Ref Range: >=60 mL/min/1.73 m?? 105 eGFR Latest Ref Range: >=60 mL/min/1.73 m?? 122 Glucose Lvl Latest Ref Range: 65 - 199 mg/dL 82 Calcium Latest Ref Range: 8.5 - 10.5 mg/dL 9.1 Total Protein Latest Ref Range: 6.1 - 8.0 gm/dL 6.7 Albumin Latest Ref Range: 3.2 - 5.2 gm/dL 4.1 Total Bilirubin Latest Ref Range: 0.2 - 1.3 mg/dL 0.2 Alk Phos Latest Ref Range: 40 - 104 unit/L 48 AST Latest Ref Range: 0 - 30 unit/L 18 ALT Latest Ref Range: 0 - 30 unit/L 14 Estradiol Latest Units: pg/mL 327 FSH Latest Units: mlU/ML 5.7 LH Latest Units: mlU/ML 13.4 Assessment and Plan: No problem-specific Assessment & Plan notes found for this encounter. #1 Breast cancer--Stage I ER+ Her2 + breast cancer, near complete response to NAC, IVELISSE. Premenopausal with resumed menses. We discussed how resumption of menses can be an adverse prognostic sign in ER+ breast cancer, but the data in Her2 + cancers is not as well known. Soft and TEXT trial results showing benefit to ovarian suppression and AI in women under 35 does not apply to Trina as those trialsdid not include her2 positive cancers. Her main benefit will be from optimal compliance with endocrine therapy, and given she is struggling with fatigue and memory loss and yeast infections, I do notfeel there is a need to induce menopause now, especially given the potentially longer term issues with cardiovascular and bone health. She is tolerating tamoxifen reasonably well, and I encouraged her to focus on her recovery now, and we can address again in the future. Recovery often takes up to 2 years, and women benefit most from a proactive approach. I encouraged Trina to think about at least one hour a week where she gets help with child psychiatrist and does something just for her own health, whether it's a walk with a friend (not the kids) , an exercise class, yoga or meditation, to acknowledge all that she has been through and has yet to fully recover from. She has good family support and will discuss the options with them. #2 Chemotherapy--monitoring for toxicity--anemia improved, no neuropathy. #3 Fatigue--grade 2. Plan as above. #4 Menopausal symptoms--improved, menses resumed 3 months ago. #5 Bone health--low risk for osteoporosis, will address if she chooses to have BSO. #6 Medication management --Diflucan 100 mg daily for 3 days for vaginal yeast infections, discussedmethods of prevention as well. Plan: continue trastuzumab until final dose on 12/14. Port removal after that Continue tamoxifen F/u 3 months documented in this encounter Plan of Treatment Upcoming Encounters Date Type Department Care Team (Late st Contact Info) Description 06/30/2024 4:30 PM EDT Office Visit Hematology [place] [address] Shilpi Gallegos MD [facility] [address] [place] [address] documented as of this encounter Results * IR Mediport Removal [...] MICHELINE Crowe Dr. was present for procedure. Shilpi Gallegos MD [facility] [place] [place] documented in this encounter Visit Diagnoses Diagnosis Invasive ductal carcinoma of right breast Invasive ductal carcinoma of right breast documented in this encounter Care Teams Hot Wort Settler Relationship Specialty Start Date End Date Radha Acuna MD [address] [place] [address] JOSE MIGUEL MENDOZA [address] PCP - General 08/07/11 documented as of this encounter
--- OUTSIDE RECORDS SUMMARY | 2024-04-07 16:39 | XMS_ITS | Encounter Summary ---
Author Organization [facility] [place] [address] Care Team Providers Care Inspector Final Assembly Electrical Name Role Phone Radha Acuna MD Primary Care Provider +1- [phone] Reason for Visit * Reason Comments Follow-up Encounter Details Date Type Department Care Team (Late st Contact Info) Description 07/21/2017 1:00 PM EDT Office Visit Hematology [place] [address] Shilpi Gallegos MD [facility] [address] [place] [address] Invasive ductal carcinoma of right breast Social [...] Sign Reading Time Taken Comments Blood Pressure 116/62 07/21/2017 12:58 PM EDT Pulse 74 07/21/2017 12:58 PM EDT Temperature 36.9 ??C (98.4 ??F) 07/21/2017 1 2:58 PM EDT Respiratory Rate 18 07/21/2017 12:5 8 PM EDT Oxygen Saturation 99% 07/21/2017 12: 58 PM EDT Inhaled Oxygen Concentration - - Weight 54.3 kg (119 lb 12.8 oz) 018 12:58 PM EDT Height 155.6 cm (5' 1.26) 07/21/2017 1 2:58 PM EDT Body Mass Index 22.44 07/21/2017 12:58 PM EDT documented in this encounter Progress Notes * Shilpi Gallegos MD - 07/21/2017 1:00 PM EDT Images from the original note were not included. Subjective: Patient ID: Trina Frances is a 37 y.o. female. Cc: breast cancer Interval history: Trina is here for f/u and for trastuzumab infusion. She is doing well. She had an echo a couple of weeks ago at [facility]. No recent colds or flus. She is doing ok with tamoxifen but has noticed fairly frequent insomnia. She has also gained some weight and has been eating more sugar than she'd like to. 1 week ago she felt a bump in the medial left breast she'd like checked. She is working 2 days/ week and walking 30 min/ day on the treadmill with an incline 5 days/ week. Her son Checo is playing a lot of soccer and her daughter is 4, ready to start preschool in the fall. She's been thinking a lot about how she was diagnosed and what her risk is now, and has some questions about that. 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 On 09/11/16, she underwent a mammogram followed by ultrasound showing 2 right anca ast masses and right axilla node 1.2cm. Biopsy showed invasive ductal carcinoma, grade 2 with DCIS.HER2+ (FISH HER2:CEP-17 = 10), ER+/SD+ (11-90%). A right axilla node biopsy was [...] IDCA. Focal DCIS high grade, no LVI. [id number] 09/11/16- MAMMO BREAST US LIMITED BILATERAL, MAMMO [...] cancer cells with immunostaining, Stain Intensity Moderate. SD immunoreactivity: ??Positive 11-90% cancer cells with immunostaining, Stain Intensity Moderate to focal Strong. [id number] FISH is amplified. B - ??Needle biopsies: [...] isto Treated DCIS, 3 mm) Lymph Nodes ?Milton Lymph Nodes: ?? Milton lymph node biopsy performed ?Number of Milton Nodes Examined: ?8 ?Lymph Node Involvement: ?? None identified In summary, Trina Frances is a 36 yo woman with right breast IDC, ER/SD+, [id number]+. Initial imaging suggested a disease process spanning ~7cm (though MRI and PET scan shows 2 discrete lesions measuring ~13mm and 1 cm). She was treated with neoadjuvant chemotherapy followed by mastectomy with residual microinvastion and 0 of 8 LNs involved. pT1mi ??pN0 Review of Systems Constitutional: Negative. HENT: Negative. Eyes: Negative. Respiratory: Negative. Endocrine: Negative. Genitourinary: Negative. Negative for dyspareunia and vaginal bleeding. Decreased libido but sexual function is ok, relationship with her is good, and body image is reasonably good too. She's not planning any more surgeries at this point. No menses since before chemo. Musculoskeletal: Negative. Skin: Negative. Allergic/Immunologic: Negative. Neurological: Negative. Psychiatric/Behavioral: Positive for sleep disturbance. Objective: Physical Exam Constitutional: She is oriented [...] Neck: Normal range of motion. Neck supple. Cardiovascular: Normal rate, regular rhythm, normal heart sounds and intact distal pulses. Exam reveals no gallop and no friction rub. No murmur heard. Pulmonary/Chest: Effort normal and breath sounds normal. No respiratory distress. She has no wheezes. She has no rales. She exhibits no tenderness. Abdominal: Soft. She exhibits no distension and no mass. There is no tenderness. There is no rebound and no guarding. Musculoskeletal: Normal range of motion. She exhibits no edema, tenderness or deformity. Neurological: She is alert and oriented to person, place, and time. She displays normal reflexes. No cranial nerve deficit. She exhibits normal muscle tone. Coordination normal. Skin: No rash noted. She is not diaphoretic. No erythema. No pallor. Psychiatric: She has a normal mood and affect. Her behavior is normal. Nursing note and vitals reviewed. No results found for this or any previous visit (from the past 24 hour(s)). Assessment and Plan: No problem-specific Assessment & Plan notes found for this encounter. #1 Breast cancer--Stage I right breast cancer ER+ Her2+, soft tissue changes over medial ribs on right, will follow. No suspicious masses, IVELISSE. Tolerating tamoxifen and trastuzumab well. We reviewed her presenting mammogram and the results of her surgery and pathologic response to chemotherapy. Her situation has many good prognostic features and she is relieved to review that again today. #2 Chemotherapy--monitoring for toxicity--resolving, no neuropathy. Echo reviewed and is stable, nosigns/ symptoms of CHF or other problems. #3 Fatigue--slow to completely resolve. She is doing a lot and has healthy habits. She will reduce sugar intake and continue exercising, often takes up to 2 years for energy to return to normal afterchemotherapy. She finished chemo in January 2017. #4 Menopausal symptoms--No menses, but this doesn't rule out return of ovarian function, and ovarian suppression + AI is still the gold standard for young women treated for early breast cancer with chemotherapy. However, SOFT and TEXT did not have a lot if any of her2 positive patients so the actual benefits of ovarian suppression in a her2 positive patient with a near complete response to NAC isnot known. I encouraged her to continue to think about it, but for now she's doing well on tamoxifen and trastuzumab. #5 Bone health--will get baseline dexa if she chooses ovarian suppression. #6 Medication management --Trina wants to know if she can get some of her trastuzumab infusions at [facility]. I will look into that. Plan: continue tamoxifen and trastuzumab F/u 6-9 wks Echo due in October. Time: 30 minutes of this 40 minute visit was spent in counseling patient on treatment options and assessment and plan. Rutv-uc-[id number] visit 40 min History and Physical: 10 min. Discussion pts of counseling: as outlined above. documented in this encounter Plan of Treatment Upcoming Encounters Date Type Department Care Team (Late st Contact Info) Description 06/30/2024 4:30 PM EDT Office Visit Hematology [place] [address] Shilpi Gallegos MD [facility] DR [place] [address] documented as of this encounter Visit Diagnoses Diagnosis Invasive ductal carcinoma of right breast documented in this encounter Care Teams Inspector Final Assembly Electrical Relationship Specialty Start Date End Date Radha Acuna MD [address] [place] [address] [place] [address] PCP - General 08/07/11 documented as of this encounter
--- OUTSIDE RECORDS SUMMARY | 2024-04-07 16:39 | XMS_ITS | Encounter Summary ---
Author Organization [facility] [place] [address] Care Team Providers Care Airborne Operations Name Role Phone Radha Acuna MD Primary Care Provider [phone]- [phone] Reason for Visit * Reason Comments Breast Cancer * Treatment/Therapy Plan Authorization (Routine) - Closed Specialty Diagnoses / Procedures Referred By Contac t Referred To Contact Diagnoses Invasive ductal carcinoma of right breast Procedures TC TRASTUZUMAB, 10MG, INJECTION (HERCEPTIN) TC CHEMO ADMIN, IV INFUSION, UP TO 1HR, SINGLE/INITIAL DRUG TC CHEMO ADMIN, IV INFUSION, EA ADDL HR, SINGLE/INITIAL DRUG Shilpi Gallegos MD [facility] DR [place] [address] [facility] Onc [address] [place] [address] Referral ID Status Reason Start Date Expiration Date Visits Re quested Visits Authorized [id number] Closed 03/31/2017 02/14/2019 17 17 Encounter Details Date Type Department Care Team (Latest Contact Info) Description 09/20/2017 10:25 AM EDT - 09/20/2017 11:59 PM EDT Hospital Encounter [place]ology [place] [address] Invasive ductal carcinoma of right [...] Sign Reading Time Taken Comments Blood Pressure - - Pulse - - Temperature - - Respiratory Rate - - Oxygen Saturation - - Inhaled Oxygen Concentration - - Weight 53.2 kg (117 lb 3.2 oz) 09/20/2017 2:17 P M EDT Height - - Body Mass Index 22.18 09/01/2017 7:53 AM EDT documented in this encounter Medications [...] as of this encounter Progress Notes * Tonya Dasilva RN - 09/20/2017 1:53 PM EDT Patient Name: Trina Frances Patient Age: 37 y.o. Birthdate: 1980 Admit date: 09/20/2017 Attending Physician: No att. providers found TIME TREATMENT STARTED: 1404 TIME TREATMENT ENDED: 1440 Trina Frances, 37 y.o. female with diagnosis of breast cancer is here for chemotherapy infusion ofHerceptin. PROTOCOL: n/a CYCLE: 3 WEEK: n/a DAY: 1 S: Pt. offers no complaints at this time. O: Chemotherapy orders independently verified for correct drug name, route and dosage per patient'sheight, weight and BSA by Tonya Dasilva, BECKY and onsite pharmacist REACTIONS (DESCRIPTION, TIME, INTERVENTION AND EFFECTIVENESS) none A: Pt. Tolerated treatment well. Trina Frances confirms that all questions and issues have been addressed. P: Return to clinic as advised. documented in this encounter Plan of Treatment Upcoming Encounters Date Type Department Care Team (Late st Contact Info) Description 06/30/2024 4:30 PM EDT Office Visit [place] [address] Shilpi Gallegos MD [facility] DR HEMATOLOGY AND ONCOLOGY [place] [id number] documented as of this encounter Visit Diagnoses Diagnosis Invasive ductal carcinoma of right breast documented in this encounter Administered Medications Inactive Administered Medications - up to 3 most recent administrations Medication Order MAR Action Action Date Dose Rate Site heparin, porcine 100 unit/mL flush 500 Units 500 Units, Intravenous, ONCE PRN, Starting on Wed09/20/17 at 0000, Until Wed09/20/17 at 2359, Line Care, Refer to Intravenous (IV) Procedure: Accessing Implanted Vascular Access Devices (654) procedure and/or Intravenous (IV) Job Aid: Adult Flushing & Catheter Care (4249) job aid for additional information regarding guidelines and administration., Routine Given 09/20/2017 2:37 PM EDT 500 Units sodium chloride 0.9 % flush 5-20 mL 5-20 mL, Intravenous, EVERY 1 MIN PRN, Starting on Wed09/20/17 at 0000, Until Wed09/20/17 at 2359, Line Care, Flush pertains to all indwelling lines. Flush per protocol found in the job aid using the link provided on this medication record. Refer to Intravenous (IV) Job Aid: Adult Flushing & Catheter Care (4667) job aid for additional information regarding guidelines and administration., Routine Given 09/20/2017 2:37 PM EDT 20 mLs TRASTuzumab (HERCEPTIN) 300 mg in sodium chloride 0.9% 264.3 mL infusion 300 mg, Intravenous, ONCE, 1 dose, On 09/20/17 at 1500, Administer over 30 Minutes, Dose Ordered = 310 mg (6 mg/kg). Pharmacist rounded dose per procedure. New Bag 09/20/2017 2:04 PM EDT 300 mg 528.6 mL/hr documented in this encounter Care Teams Airborne Operations Relationship Specialty Start Date End Date Radha Acuna MD [address] [place] [address] [place] [address] PCP - General 08/07/11 documented as of this encounter
--- OUTSIDE RECORDS SUMMARY | 2024-04-07 16:39 | XMS_ITS | Encounter Summary ---
Author Organization [facility] Address [facility] [place] [address] Care Team Providers Care Hospice Care Sales Consultant Name Role Phone Radha Acuna MD Primary Care Provider +1- [phone] Encounter Details Date Type Department Care Team (Late st Contact Info) Description 09/28/2017 1:23 PM EDT - 09/28/2017 11:59 PM EDT Hospital [place] [address] Mandie Gonzalez APRN Breast mass; History of breast cancer Discharge Disposition: Home Social History Tobacco Use [...] 10/02/2008 06/06/2019 documented as of this encounter Plan of Treatment Upcoming Encounters Date Type Department Care Team (Late st Contact Info) Description 06/30/2024 4:30 PM EDT Office Visit [place]ology [place] [address] Shilpi Gallegos MD [facility] DR HEMATOLOGY [place] [address] documented as of this encounter Procedures Procedure Name Priority Date/Time Associated Diagnosis Comments MAMMO BREAST US LIMITED RIGHT Routine 09/28/2017 1:40 PM EDT Breast mass History of breast cancer documented in this encounter Results * US Breast Limited Right (09/28/2017 1:40 PM EDT) Anatomical Region Laterality Modality Breast Right Mammography Impressions 09/28/2017 1:50 PM EDT Normal findings, on personally directed ultrasound, patient directed. RECOMMENDATION: Clinical follow-up with nurse practitioner Carlos. These findings and recommendations were discussed with the patient who concurs. Findings and recommendations discussed with nurse chris Gonzalez. Right breast: BI-RADS 2, benign findings Narrative 09/28/2017 1:50 PM EDT EXAMINATION: US BREAST LIMITED RIGHT CLINICAL HISTORY: soft tissue prominence which is new and more noticeabler over rib on right above implant, hx breast ca/ruleout local recurrance TECHNIQUE: High-resolution grayscale and color sonographic evaluation, personally directed of the patient directed site of chest wall prominence overlying the right rib. COMPARISON: Breast MRI of 09/17/2016. FINDINGS: Normal skin, normal subcutaneous tissues, and underlying normal rib. No suspicious findings. Mandie Gonzalez APRN IMG MAMMO ORDERA BLES documented in this encounter Visit Diagnoses Diagnosis Breast mass Lump or mass in breast History of breast cancer Personal history of malignant neoplasm of breast documented in this encounter Care Teams Hospice Care Sales Consultant Relationship Specialty Start Date End Date Radha Acuna MD [address] [place] [id number] PCP - General 08/07/11 documented as of this encounter
--- OUTSIDE RECORDS SUMMARY | 2024-04-07 16:39 | XMS_ITS | Encounter Summary ---
[place] [address] Care Team Providers Care Martial Arts Instructor Name Role Phone Radha Acuna MD Primary Care Provider +1- [phone] Encounter Details Date Type Department Care Team (Latest Contact Info) Description 09/01/2017 7:00 AM EDT - 09/01/2017 7:01 AM EDT Hospital Encounter [place] [address] Malignant neoplasm of female breast, unspecified estrogen receptor status, unspecified laterality, unspecified site of breast (Primary Dx); Invasive ductal carcinoma of right breast Discharge [...] Progress Notes * Zaida Dawson RN - 09/01/2017 7:15 AM EDT Patient Name: Trina Frances Patient Age: 37 y.o. Birthdate: 1980 Admit date: 09/01/2017 Attending Physician: No att. providers found Access visit. See MAR and/or flowsheet. documented in this encounter Plan of Treatment Upcoming Encounters Date Type Department Care Team (Late st Contact Info) Description 06/30/2024 4:30 PM EDT Office Visit [place] [address] Shilpi Gallegos MD [facility] DR [place] [address] documented as of this encounter Procedures Procedure Name Priority Date/Time Associated Diagnosis Comments HEMOGRAM STAT 09/01/2017 7:10 AM EDT Invasive ductal carcinoma of right breast DIFFERENTIAL, AUTOMATED STAT 09/01/2017 7:10 AM EDT Invasive ductal carcinoma of right breast CBC (WITH DIFF) STAT 09/01/2017 7:10 AM EDT Invasive ductal carcinoma of right breast COMPREHENSIVE METABOLIC PANEL STAT 09/01/2017 7:10 AM EDT Invasive ductal carcinoma of right breast documented in this encounter Results * Differential, Automated (09/01/2017 7:10 AM EDT) Neutrophil % 53.7 % [facility] Neutrophil Absolute 2.75 1.70 - 6.10 x10(3)/[facility] Lymph % 33.8 % [facility] Lymphocytes Abs 1.7 0.9 - 3.2 x10(3)/[facility] Monocyte % 8.6 % [facility] Monocyte Abs 0.4 0.3 - 0.9 x10(3)/[facility] Eos % 3.5 % [facility] Eosinophils Abs 0.2 0.0 - 0.4 x10(3)/[facility] Basophil % 0.0 % [facility] Baso Absolute 0.0 0.0 - 0.1 x10(3)/[facility] Immature Gran % 0.40 % [facility] Comment: Immature granulocytes(IG's)percentage and absolute count will include metamyelocytes, myelocytes, and promyelocytes. Blood smears from CBCs yielding IG's will be scanned manually for concordance. If this scan disagrees with the automated IG or if promyelocytes are noted, a manual differential will be performed. Immature Gran Absolute 0.02 0.00 - 0.04 x10(3)/[facility] Blood specimen (specimen) 09/01/2017 7:10 AM EDT 09/01/2017 7:16 AM EDT Narrative Resulting Agency Comment Spec In Lab Shilpi Gallegos MD HEMATOLOGY ORDERABL ES [facility] [place] [address] * (ABNORMAL) Hemogram (09/01/2017 7:10 AM EDT) White Blood Cell 5.1 4.0 - 9.5 x10(3)/mc L [facility] Red Blood Cell 3.81(L) 4.00 - 5.21 x10(6)/mc L [facility] Hemoglobin 12.4 11.7 - 15.5 gm/dL [facility] Hematocrit 35.1(L) 35.7 - 45.8 % [facility] Mean Cell Volume 92.1 82.6 - 94.4 fL [facility] Mean Cell Hemoglobin 32.5(H) 27.1 - 32.0 pg [facility] Mean Cell Hemoglobin Concentration 35.3(H) 31.7 - 35.0 gm/dL [facility] Platelet 154 145 - 357 x10(3)/[facility]ORATORY RDW Standard Deviation 39.3 37.0 - 46.0 [facility] RDW coefficient of variation 11.7 11.5 - 14.1 % [facility] Mean Platelet Volume 9.7 7.6 - 12.9 fL [facility] NRBC% auto 0.0 % [facility] NRBC Absolute 0.000 0.000 - 0.000 x10(3)/[facility] Blood specimen (specimen) 09/01/2017 7:10 AM EDT 09/01/2017 7:16 AM EDT Narrative Resulting Agency Comment Spec In Lab Shilpi Gallegos MD HEMATOLOGY ORDERABL ES [facility] [place] [address] * (ABNORMAL) Comprehensive metabolic panel (non-fasting) (09/01/2017 7:10 AM EDT) Glucose 89 65 - 199 mg/dL [facility] Comment:Diabetes: >=200 mg/d L plus symptoms Blood Urea Nitrogen 22(H) 8 - 18 mg/dL [facility] Creatinine 0.83 0.70 - 1.20 mg/dL [facility] Sodium 140 135 - 145 mmol/L [facility] Potassium 3.7 3.5 - 5.0 mmol/L [facility] Comment: Please note: ??Patients with WBC >100,000 may have falsely elevated Potassium levels. ??For accurate Potassium quantification in these patients send serum separator tube (gold top) for subsequent determinations. ??Contact the Clinical Chemistry Laboratory if there are any questions. Chloride 102 98 - 107 mmol/L [facility] Carbon Dioxide 26 22 - 31 mmol/L [facility] Anion Gap 12 5 - 15 mmol/L [facility] Calcium 9.2 8.5 - 10.5 mg/dL [facility] Protein, Total 7.1 6.1 - 8.0 gm/dL [facility] Albumin 4.4 3.2 - 5.2 gm/dL [facility] Aspartate Aminotransferase 20 0 - 30 unit/L [facility] Alanine Aminotransferase 13 0 - 30 unit/L [facility] Alkaline Phosphatase 56 40 - 104 unit/L [facility] Bilirubin, Total 0.3 0.2 - 1.3 mg/dL [facility] Est Glomerular Filtration Rate >60 >=60 [facility] Comment: The reported eGFR should be multiplied by 1.2 for patients. The MDRD is not an appropriate measure of renal function for patients with body mass extremes or in patients with acute kidney failure. http://Danger.Surikate/DHnkdep http://Danger.Surikate/DHMCnkf Blood specimen (specimen) 09/01/2017 7:10 AM EDT 09/01/2017 7:16 AM EDT Narrative Resulting Agency Comment Spec In Lab Shilpi Gallegos MD CHEMISTRY ORDERABLE S [facility] [place] [address] documented in this encounter Visit Diagnoses Diagnosis Malignant neoplasm of female breast, unspecified estrogen receptor status, unspecified laterality, unspecified site of breast- Primary Invasive ductal carcinoma of right breast documented in this encounter Administered Medications Inactive Administered Medications - up to 3 most recent administrations Medication Order MAR Action Action Date Dose Rate Site sodium chloride 0.9 % flush 20 mL 20 mL, Intravenous, EVERY 1 MIN PRN, Starting on Wed09/01/17 at 0709, Until Kaycee 09/02/17 at 0436, Scientific Artist, Routine Given 09/01/2017 7:14 AM EDT 20 mLs documented in this encounter Care Teams Martial Arts Instructor Relationship Specialty Start Date End Date Radha Acuna MD [address] [place] [address] [place] [address] PCP - General 08/07/11 documented as of this encounter
--- OUTSIDE RECORDS SUMMARY | 2024-04-07 16:39 | XMS_ITS | Encounter Summary ---
Author Organization [facility] [place] [address] Care Team Providers Care Option Trader Name Role Phone Radha Acuna MD Primary Care Provider +1- [phone] Reason for Visit * Reason Comments Chemotherapy * Treatment/Therapy Plan Authorization (Routine) - Closed Specialty Diagnoses / Procedures Referred By Contgabriela t Referred To Contact Diagnoses Invasive ductal carcinoma of right breast Procedures TC TRASTUZUMAB, 10MG, INJECTION (HERCEPTIN) TC CHEMO ADMIN, IV INFUSION, UP TO 1HR, SINGLE/INITIAL DRUG TC CHEMO ADMIN, IV INFUSION, EA ADDL HR, SINGLE/INITIAL DRUG Shilpi Gallegos MD [facility] [address] [place] [address] [facility] [address] [place] [address] Referral ID Status Reason Start Date Expiration Date Visits Re quested Visits Authorized [id number] Closed 03/31/2017 02/14/2019 Encounter Details Date Type Department Care Team (Latest Contact Info) Description 11/26/2017 3:35 PM EDT - 11/26/2017 11:59 PM EDT Hospital Encounter Hematology [place] [address] Invasive ductal carcinoma of right [...] Sign Reading Time Taken Comments Blood Pressure 102/61 11/26/2017 3:57 PM EDT Pulse 59 11/26/2017 3:57 PM EDT Temperature 37 ??C (98.6 ??F) 11/26/2017 3:57 PM EDT Respiratory Rate 18 11/26/2017 3:57 PM EDT Oxygen Saturation 100% 11/26/2017 3:57 PM EDT Inhaled Oxygen Concentration - - Weight 54.9 kg (121 lb 2 oz) 11/26/2017 3:57 PM EDT Height 156 cm (5' 1.42) 11/26/2017 4:04 PM EDT Body Mass Index 22.58 11/26/2017 3:57 PM EDT documented in this encounter Medications at [...] as of this encounter Progress Notes * Jodie Diez RN - 11/26/2017 5:53 PM EDT TIME TREATMENT STARTED: 1600 TIME TREATMENT ENDED: 1715 Trina Frances, 37 y.o. female with diagnosis of breast CA is here for chemotherapy infusion of herceptin. PROTOCOL: no CYCLE: 4 WEEK: DAY: 22 S: I have 1 more treatment left then I get my port out O: Here with her 2 young children. She lives in [facility] LAB DATA: Within acceptable limits for chemo. LVEF 07/13/17 65% IV ACCESS: port HYDRATION: none ANTIEMETICS/PREMEDS: See MAR none CHEMOTHERAPY: See above Chemotherapy orders independently verified for drug name, route and dosage per patient's height, weight and BSA by Jodie Diez RNC and RPharmacist REACTIONS (DESCRIPTION, TIME, INTERVENTION AND EFFECTIVENESS) A: Pt. Tolerated treatment well. Trina Frances confirms that all questions and issues have been addressed. P: Return to clinic per routine. documented in this encounter Plan of Treatment Upcoming Encounters Date Type Department Care Team (Late st Contact Info) Description 06/30/2024 4:30 PM EDT Office Visit Hematology [place] [address] Shilpi Gallegos MD [facility] HEMATOLOGY [place] [address] documented as of this encounter Visit Diagnoses Diagnosis Invasive ductal carcinoma of right breast documented in this encounter Administered Medications Inactive Administered Medications - up to 3 most recent administrations Medication Order MAR Action Action Date Dose Rate Site heparin, porcine 100 unit/mL flush 500 Units 500 Units, Intravenous, ONCE PRN, Starting on Wed11/26/17 at 0000, Until Wed11/26/17 at 2359, Line Care, Refer to Intravenous (IV) Procedure: Accessing Implanted Vascular Access Devices (454) procedure and/or Intravenous (IV) Job Aid: Adult Flushing & Catheter Care (7407) job aid for additional information regarding guidelines and administration., Routine Given 11/26/2017 5:12 PM EDT 500 Units sodium chloride 0.9 % flush 5-20 mL 5-20 mL, Intravenous, EVERY 1 MIN PRN, Starting on Wed11/26/17 at 1606, Until 11/27/17 at 0437, Line Care, Flush pertains to all indwelling lines. Flush per protocol found in the job aid using the link provided on this medication record. Refer to Intravenous (IV) Job Aid: Adult Flushing & Catheter Care (2059) job aid for additional information regarding guidelines and administration., Routine Given 11/26/2017 5:12 PM EDT 20 mLs TRASTuzumab (HERCEPTIN) 300 mg in sodium chloride 0.9% 264.3 mL infusion 300 mg, Intravenous, ONCE, 1 dose, On Wed11/26/17 at 1600, Administer over 30 Minutes, Dose Ordered = 310 mg (6 mg/kg). Pharmacist rounded dose per procedure. New Bag 11/26/2017 4:38 PM EDT 300 mg 528.6 mL/hr documented in this encounter Care Teams Option Trader Relationship Specialty Start Date End Date Radha Acuna MD [address] [place] [address] [place] [address] PCP - General 08/07/11 documented as of this encounter
--- OUTSIDE RECORDS SUMMARY | 2024-04-07 16:39 | XMS_ITS | Encounter Summary ---
Author Organization [facility] [place] [address] Care Team Providers Care Window Installer Name Role Phone Radha Acuna MD Primary Care Provider +1- [phone] Reason for Visit * Reason Comments Chemotherapy * Treatment/Therapy Plan Authorization (Routine) - Closed Specialty Diagnoses / Procedures Referred By Contgabriela t Referred To Contact Diagnoses Invasive ductal carcinoma of right breast Procedures TC TRASTUZUMAB, 10MG, INJECTION (HERCEPTIN) TC CHEMO ADMIN, IV INFUSION, UP TO 1HR, SINGLE/INITIAL DRUG TC CHEMO ADMIN, IV INFUSION, EA ADDL HR, SINGLE/INITIAL DRUG Shilpi Gallegos MD [facility] [address] [place] [address] [facility] [address] [place] [address] Referral ID Status Reason Start Date Expiration Date Visits Re quested Visits Authorized [id number] Closed 03/31/2017 02/14/2019 17 17 Encounter Details Date Type Department Care Team (Latest Contact Info) Description 08/11/2017 8:20 AM EDT - 08/11/2017 11:59 PM EDT Hospital Encounter Hematology [place] [address] Invasive ductal carcinoma of right [...] Reading Time Taken Comments Blood Pressure 111/75 08/11/2017 8:43 AM EDT Pulse 65 08/11/2017 8:43 AM EDT Temperature 37.1 ??C (98.8 ??F) 08/11/2017 8:48 AM ED T Respiratory Rate 18 08/11/2017 8:43 AM EDT Oxygen Saturation 100% 08/11/2017 8:43 AM EDT Inhaled Oxygen Concentration - - Weight 54.3 kg (119 lb 9.6 oz) 08/11/2017 8:31 A M EDT Height 155.5 cm (5' 1.22) 08/11/2017 8:31 AM ED T Body Mass Index 22.44 08/11/2017 8:31 AM EDT documented in this encounter Medications [...] Progress Notes * Susan Prince RN - 08/11/2017 6:02 AM EDT Patient Name: Trina Frances Patient Age: 37 y.o. Birthdate: 1980 Admit date: (Not on file) Attending Physician: No att. providers found Start time: 0830 End time: 1000 Trina Frances, 37 y.o. female with diagnosis of breast cancer is here for chemotherapy infusion ofherceptin. PROTOCOL: no CYCLE: 2 DAY: 43 S: I am disappointed that I started my period again. I guess I will have to have a talk with Dr. Gallegos about possibly removing my ovaries. Complains of fingernails being brittle, noting they are worse when she has been working and using purell a lot. Improve when at home. Continues with craving sugar, which patient states is irritating. O: Chemotherapy orders independently verified for correct [...] EDT Office Visit Hematology [place] [address] Shilpi Gallegos MD [facility] DR [place]AT[place]Y [place] [address] documented as of this encounter Visit Diagnoses Diagnosis Invasive ductal carcinoma of right breast documented in this encounter Administered Medications Inactive Administered Medications - up to 3 most recent administrations Medication Order MAR Action Action Date Dose Rate Site heparin, porcine 100 unit/mL flush 500 Units 500 Units, Intravenous, ONCE PRN, Starting on Wed08/11/17 at 0000, Until Wed08/11/17 at 2359, Line Care, Refer to Intravenous (IV) Procedure: Accessing Implanted Vascular Access Devices (654) procedure and/or Intravenous (IV) Job Aid: Adult Flushing & Catheter Care (1321) job aid for additional information regarding guidelines and administration., Routine Given 08/11/2017 9:55 AM EDT 500 Units sodium chloride 0.9 % flush 5-20 mL 5-20 mL, Intravenous, EVERY 1 MIN PRN, Starting on Wed08/11/17 at 0000, Until Wed08/11/17 at 2359, Line Care, Flush pertains to all indwelling lines. Flush per protocol found in the job aid using the link provided on this medication record. Refer to Intravenous (IV) Job Aid: Adult Flushing & Catheter Care (6349) job aid for additional information regarding guidelines and administration., Routine Given 08/11/2017 9:54 AM EDT 20 mLs TRASTuzumab (HERCEPTIN) 300 mg in sodium chloride 0.9% 264.3 mL infusion 300 mg, Intravenous, ONCE, 1 dose, On Wed08/11/17 at 0930, Administer over 30 Minutes, Dose Ordered = 310 mg (6 mg/kg). Pharmacist rounded dose per procedure. New Bag 08/11/2017 9:18 AM EDT 300 mg 528.6 mL/hr documented in this encounter Care Teams Window Installer Relationship Specialty Start Date End Date Radha Acuna MD [address] [place] [address] [place] [address] PCP - General 08/07/11 documented as of this encounter
--- OUTSIDE RECORDS SUMMARY | 2024-04-07 16:39 | XMS_ITS | Encounter Summary ---
[place] [address] Care Team Providers Care Vendor Manager Name Role Phone Radha Acuna MD Primary Care Provider +1- [phone] Reason for Visit * Reason Onset Date Comments Medication Refill 11/04/2017 Encounter Details Date Type Department Care Team (Late Contact Info) Description 11/04/2017 Refill Hematology [place] [address] Abi [facility] Social History Tobacco Use Types Packs/Day Years [...] encounter Miscellaneous Notes * Telephone Encounter - Abi East RN - 11/04/2017 10:58 AM EDT Received faxed request for refill of lidocaine from [facility]. Per last office note- mediport being left in till after 12/14 Script pended to provider for review, signature and escribe. documented in this encounter Plan of Treatment Upcoming Encounters Date Type Department Care Team (Late st Contact Info) Description 06/30/2024 4:30 PM EDT Office Visit [place]ology [place] [address] Shilpi Gallegos MD [facility] [address] [place] [address] documented as of this encounter Visit Diagnoses Not on filedocumented in this encounter Care Teams Vendor Manager Relationship Specialty Start Date End Date Radha Acuna MD [address] [place] [address] [place] [address] PCP - General 08/07/11 documented as of this encounter
--- OUTSIDE RECORDS SUMMARY | 2024-04-07 16:39 | XMS_ITS | Encounter Summary ---
Author Organization [place] [address] Care Team Providers Care Teaching Manager Name Role Phone Radha Acuna MD Primary Care Provider +1- [phone] Reason for Visit * Reason Comments Follow Up Surgery s/p bilat database administration associate t o implant exchange dos 06/09/17 Encounter Details Date Type Department Care Team (Latest Contact Info) Description 06/16/2017 11:30 AM EST Clinical [place] [address] Surgery follow-up Social History Tobacco Use Types Packs/Day Years [...] this encounter Patient Instructions * Patient Instructions* Libby Matos RN - 06/16/2017 11:30 AM EST Signs of Infection : A temperature over 100.4 F or 38 C. Redness at the incision line that is beginning to spread away from the incision after the first 48 hours. Yellow pus-like or foul smelling drainage larger than a dime size from the incision or drain sites. Increased pain / discomfort that is not relieved by your pain medicine. For any of these symptoms please call our nurse's line at [phone] M - F 8 - 5 Start implant massage 3 weeks after surgery -SCAR MASSAGE TECHNIQUE: to begin 4-6 weeks following surgery What is a scar? When an injury occurs, the body immediately begins to repair itself & the area becomes swollen & sore. Eventually small collagen fibers form, becoming a solid tissue that results in a scar. This scar will continue to change in appearance for 1-2 years. Ideally, a scar is smooth & flat, blending in with the surrounding skin. However, some scars may become highly visible & unattractive due to factors such as your age, scar location & size, nutrition, genetics, or infection. A hypertrophic scar occurs when there is an excess production of collagen tissue that is elevated but remains within the wound boundaries. The scar is tense, red, & can be associated with itching & tenderness. A hypertrophic scar can be ordinary (usually stabilizes in 3 months & may even get smaller and smoother) or keloid. The keloid scar invades nearby tissue that was not part of the original wound, tends to enlarge even after 6 months & does not get softer. Will scar massage make my scars disappear? Nothing can make scars disappear. However, massaging the scar assists the body in breaking down thescar tissue to give it a flatter, softer, appearance. Massage also mobilizes the scar, preventing it from adhering to underlying tissue, tendons, & nerves. You can make the greatest difference in the appearance of the scar if you massage it in the first 3months. What should I use on my scars? You will hear many recommendations. This clinic finds that it is the massage itself that reduces the scar & not necessarily the choice of ointments or creams. We do discourage the use of Vitamin E oil, however, due to studies that have reported scar inflammation & deterioration. How do I massage my scars? Generously apply the lotion or cream into the scar 3-4 times a day for 8 weeks on new scars, and 3-4 times per day for 3 to 6 months on existing scars. Using your finger, apply pressure to the scar in a crosswise & circular direction, bearing down as hard as tolerated. Remember to protect your scar from the sun, especially in the first 6-12 months, by using a moisturizer with sunblock and wearing a physical barrier (ie: a hat) when possible documented in this encounter Progress Notes * Libby Matos RN - 06/16/2017 11:30 AM EST Reason for Visit: Postoperative Evaluation s/p Case Date: 06/09/2017 ?? Surgeon: Surgeon(s) and Role: * Frantz Zurita MD - Primary ?? Preoperative diagnosis: database administration associate replacement ?? Postoperative diagnosis: database administration associate replacement ?? Procedure(s) (LRB): TISSUE SALES AND SERVICE ADVISOR REPLACEMENT, WITH PERMANENT PROSTHESIS, MICHAEL (WRVU 8.01) (Bilateral) BREAST, CAPSULOTOMY, OPEN PERIPROSTHETIC -MICHAEL (WRVU 9.17) (Bilateral) ?? Trina is here for incision check . She is here with her .. Subjective: She states no discomfort today. She states that she is feeling well.She is using advil and extra strength tylenol with good effect. She states that she is happy with her results. Objective: Mild swelling bilateral breasts, no ecchymosis .Left nipple good projection, right nipple smaller, both pink. Implants are in good position. Incisions are well approximated. Assessment: No signs of delayed healing, erythemia ,or fluid collection. Incisions CDI. Plan: We reviewed post op instructions, including activity limitations as outlined in our post op brochure. We reviewed signs and symptoms of infection,as well as parameters for normal post op swelling.We reviewed implant massage and scar massage, instructions provided in avs. Follow up in 3 months with or sooner if needed. Trina expressed understanding of her instructions and is happy with the plan of care. documented in this encounter Plan of Treatment Upcoming Encounters Date Type Department Care Team (Late st Contact Info) Description 06/30/2024 4:30 PM EDT Office Visit [place]ology [place] [address] Shilpi Gallegos MD [facility] DR [place] [address] documented as of this encounter Visit Diagnoses Diagnosis Surgery follow-up Follow-up examination, following unspecified surgery documented in this encounter Care Teams Teaching Manager Relationship Specialty Start Date End Date Radha Acuna MD [address] [place] [address] PCP - General 08/07/11 documented as of this encounter
--- OUTSIDE RECORDS SUMMARY | 2024-04-07 16:39 | XMS_ITS | Encounter Summary ---
Author Organization [facility] [place] [address] Care Team Providers Care Programs Assistant Name Role Phone Radha Acuna MD Primary Care Provider +1- [phone] Reason for Visit * Reason Comments Chemotherapy * Treatment/Therapy Plan Authorization (Routine) - Closed Specialty Diagnoses / Procedures Referred By Contgabriela t Referred To Contact Diagnoses Invasive ductal carcinoma of right breast Procedures TC TRASTUZUMAB, 10MG, INJECTION (HERCEPTIN) TC CHEMO ADMIN, IV INFUSION, UP TO 1HR, SINGLE/INITIAL DRUG TC CHEMO ADMIN, IV INFUSION, EA ADDL HR, SINGLE/INITIAL DRUG Shilpi Gallegos MD [facility] [address] [place] [address] [facility] [address] [place] [address] Referral ID Status Reason Start Date Expiration Date Visits Re quested Visits Authorized [id number] Closed 03/31/2017 02/14/2019 17 17 Encounter Details Date Type Department Care Team (Latest Contact Info) Description 07/21/2017 12:57 PM EDT - 07/21/2017 11:59 PM EDT Hospital Encounter Hematology [place] [address] Invasive ductal carcinoma of right breast (Primary Dx) Discharge Disposition: Home Social History Tobacco Use [...] as of this encounter Progress Notes * Marilyn Haley RN - 07/21/2017 2:48 PM EDT Patient Name: Trina Frances Patient Age: 37 y.o. Birthdate: 1980 Admit date: 07/21/2017 Attending Physician: No att. providers found TIME TREATMENT STARTED: 1406 TIME TREATMENT ENDED: 1510 Trina Frances, 37 y.o. female with diagnosis of breast ca is here for chemotherapy infusion of Herceptin . PROTOCOL: CYCLE: 2 WEEK: DAY: 22 S: Pt. offers no complaints at this time. O: Chemotherapy orders independently verified for correct drug name, route and dosage per patient'sheight, weight and BSA by rosa Haley RN and onsite pharmacist REACTIONS (DESCRIPTION, TIME, INTERVENTION AND EFFECTIVENESS) none A: Pt. Tolerated treatment well. Trina Frances confirms that all questions and issues have been addressed. P: Return to clinic prn. documented in this encounter Plan of Treatment Upcoming Encounters Date Type Department Care Team (Late st Contact Info) Description 06/30/2024 4:30 PM EDT Office Visit Hematology [place] [address] Shilpi Gallegso MD [facility] DR [place] [address] documented as of this encounter Visit Diagnoses Diagnosis Invasive ductal carcinoma of right breast- Primary documented in this encounter Administered Medications Inactive Administered Medications - up to 3 most recent administrations Medication Order MAR Action Action Date Dose Rate Site heparin, porcine 100 unit/mL flush 500 Units 500 Units, Intravenous, ONCE PRN, Starting on Wed07/20/17 at 1525, Until Wed07/21/17 at 1524, Line Care, Refer to Intravenous (IV) Procedure: Accessing Implanted Vascular Access Devices (654) procedure and/or Intravenous (IV) Job Aid: Adult Flushing & Catheter Care (3699) job aid for additional information regarding guidelines and administration., Routine Given 07/21/2017 3:00 PM EDT 500 Units sodium chloride 0.9 % flush 5-20 mL 5-20 mL, Intravenous, EVERY 1 MIN PRN, Starting on Wed07/20/17 at 1525, Until Wed07/21/17 at 1524, Line Care, Flush pertains to all indwelling lines. Flush per protocol found in the job aid using the link provided on this medication record. Refer to Intravenous (IV) Job Aid: Adult Flushing & Catheter Care (5329) job aid for additional information regarding guidelines and administration., Routine Given 07/21/2017 3:00 PM EDT 20 mLs TRASTuzumab (HERCEPTIN) 300 mg in sodium chloride 0.9% 264.3 mL infusion 300 mg, Intravenous, ONCE, 1 dose, On Wed07/21/17 at 1530, Administer over 30 Minutes, Dose Ordered = 300 mg (6 mg/ kg). Pharmacist rounded dose per procedure. New Bag 07/21/2017 2:23 PM EDT 300 mg 528.6 mL/hr documented in this encounter Care Teams Programs Assistant Relationship Specialty Start Date End Date Radha Acuna MD [address] [place] [address] [place] [address] PCP - General 08/07/11 documented as of this encounter
--- OUTSIDE RECORDS SUMMARY | 2024-04-07 16:39 | XMS_ITS | Encounter Summary ---
Author Organization [facility] [place] [address] Care Team Providers Care Tree Climber Name Role Phone Radha Acuna MD Primary Care Provider +1- [phone] Encounter Details Date Type Department Care Team (Late st Contact Info) Description 12/20/2017 Telephone Hematology [place] [address] Kat Funez Social History Tobacco Use Types Packs/Day Years [...] encounter Miscellaneous Notes * Telephone Encounter - Kat Funez - 12/20/2017 12:06 PM EDT Received fax from Tonya Markham BSN, RN/Nurse onsite case manager for oncology. She has request that the patient contact her at [phone] extension [phone]. I called and left a message for the patient to contact [facility] so we may relay this message. The letter/fax received has been scanned into the patients chart. documented in this encounter Plan of Treatment Upcoming Encounters Date Type Department Care Team (Late st Contact Info) Description 06/30/2024 4:30 PM EDT Office Visit Hematology [place] [address] Shilpi Gallegos MD [facility] [place] [address] documented as of this encounter Visit Diagnoses Not on filedocumented in this encounter Care Teams Tree Climber Relationship Specialty Start Date End Date Radha Acuna MD [address] [place] [address] [place] [address] PCP - General 08/07/11 documented as of this encounter
--- OUTSIDE RECORDS SUMMARY | 2024-04-07 16:39 | XMS_ITS | Encounter Summary ---
Author Organization [facility] Address [facility] [place] [address] Care Team Providers Care Wreath Maker Name Role Phone Radha Acuna MD Primary Care Provider +1- [phone] Reason for Visit * Treatment/Therapy Plan Authorization (Routine) - Closed Specialty Diagnoses / Procedures Referred By Contgabriela t Referred To Contact Diagnoses Invasive ductal carcinoma of right breast Procedures TC TRASTUZUMAB, 10MG, INJECTION (HERCEPTIN) TC CHEMO ADMIN, IV INFUSION, UP TO 1HR, SINGLE/INITIAL DRUG TC CHEMO ADMIN, IV INFUSION, EA ADDL HR, SINGLE/INITIAL DRUG Shilpi Gallegos MD [facility] DR HEMATOLOGY [place] [address] [facility] [address] [place] [address] Referral ID Status Reason Start Date Expiration Date Visits Re quested Visits Authorized [id number] Closed 03/31/2017 02/14/2019 17 17 Encounter Details Date Type Department Care Team (Latest Contact Info) Description 12/16/2017 9:00 AM EDT - 12/16/2017 10:53 AM EDT Hospital Encounter Hematology [place] [address] Invasive ductal carcinoma of right [...] Sign Reading Time Taken Comments Blood Pressure 98/63 12/16/2017 9:41 AM EDT Pulse 66 12/16/2017 9:41 AM EDT Temperature 36.7 ??C (98.1 ??F) 12/16/2017 9:41 AM ED T Respiratory Rate 18 12/16/2017 9:41 AM EDT Oxygen Saturation 100% 12/16/2017 9:41 AM EDT Inhaled Oxygen Concentration - - Weight 54.6 kg (120 lb 6.4 oz) 12/16/2017 9:29 A M EDT Height 157 cm (5' 1.81) 12/16/2017 9:29 AM EDT Body Mass Index 22.16 12/16/2017 9:29 AM EDT documented in this encounter Medications [...] as of this encounter Progress Notes * Casandra Bloom, RN - 12/16/2017 9:54 AM EDT Patient Name: Trina Frances Patient Age: 37 y.o. Birthdate: 1980 Admit date: 12/16/2017 Attending Physician: No att. providers found Trina Frances, 37 y.o. female with diagnosis of Breast Ca is here for chemotherapy infusion of Herceptin. CYCLE: 4 DAY: 43 S: Pt. offers no complaints at this time. O: Chemotherapy orders independently verified for correct drug name, route and dosage per patient'sheight, weight and BSA by Casandra Bloom RN and onsite pharmacist REACTIONS (DESCRIPTION, TIME, INTERVENTION AND EFFECTIVENESS) None A: Pt. Tolerated treatment well. Trina Frances confirms that all questions and issues have been addressed. P: Return to clinic as scheduled documented in this encounter Plan of Treatment Upcoming Encounters Date Type Department Care Team (Late st Contact Info) Description 06/30/2024 4:30 PM EDT Office Visit Hematology [place] [address] Shilpi Gallegos MD [facility] DR HEMATOLOGY [place] [address] documented as of this encounter Visit Diagnoses Diagnosis Invasive ductal carcinoma of right breast documented in this encounter Administered Medications Inactive Administered Medications - up to 3 most recent administrations Medication Order MAR Action Action Date Dose Rate Site heparin, porcine 100 unit/mL flush 500 Units 500 Units, Intravenous, ONCE PRN, Starting on Kaycee 12/16/17 at 0000, Until Kaycee 12/16/17 at 2359, Line Care, Refer to Intravenous (IV) Procedure: Accessing Implanted Vascular Access Devices (174) procedure and/or Intravenous (IV) Job Aid: Adult Flushing & Catheter Care (8934) job aid for additional information regarding guidelines and administration., Routine Given 12/16/2017 10:41 AM EDT 500 Units sodium chloride 0.9 % flush 5-20 mL 5-20 mL, Intravenous, EVERY 1 MIN PRN, Starting on Kaycee 12/16/17 at 0955, Until 12/17/17 at 0437, Line Care, Flush pertains to all indwelling lines. Flush per protocol found in the job aid using the link provided on this medication record. Refer to Intravenous (IV) Job Aid: Adult Flushing & Catheter Care (3589) job aid for additional information regarding guidelines and administration., Routine Given 12/16/2017 10:41 AM EDT 20 mLs TRASTuzumab (HERCEPTIN) 300 mg in sodium chloride 0.9% 264.3 mL infusion 300 mg, Intravenous, ONCE, 1 dose, On Kaycee 12/16/17 at 0900, Administer over 30 Minutes, Dose Ordered = 310 mg (6 mg/kg). Pharmacist rounded dose per procedure. New Bag 12/16/2017 10:03 AM EDT 300 mg 528.6 mL/hr documented in this encounter Care Teams Wreath Maker Relationship Specialty Start Date End Date Radha Acuna MD [address] [place] [address] [place] [address] PCP - General 08/07/11 documented as of this encounter
--- OUTSIDE RECORDS SUMMARY | 2024-04-07 16:39 | XMS_ITS | Encounter Summary ---
[place] [address] Care Team Providers Care Medical Billing Manager Name Role Phone Radha Acuna MD Primary Care Provider [phone]- [phone] Encounter Details Date Type Department Care Team (Latest Contact Info) Description 08/23/2018 10:30 AM EDT - 08/23/2018 11:59 PM EDT Hospital Encounter Hematology [place] [address] Invasive ductal carcinoma of right breast Discharge [...] tablet by mouth daily. 90 tablet 3 05/23/2018 03/02/2019 lidocaine-prilocaine (EMLA) Cream Apply small amount of cream using q-tip on mediport site approx 30-60 minutes before access. Cover site with saran wrap. 30 g 11/04/2017 09/19/2019 tretinoin (RETIN-A) 0.025 % Cream apply to affected area at bedtime 0 10/25/2017 03/27/2022 polyethylene glycol (MIRALAX) 17 gram Powder in [...] EDT Office Visit Hematology [place] [address] Shilpi Gallegos MD [facility] [address] [place] [address] documented as of this encounter Procedures Procedure Name Priority Date/Time Associated Diagnosis Comments HEMOGRAM Routine 08/23/2018 12:29 PM EDT Invasive ductal carcinoma of right breast DIFFERENTIAL, AUTOMATED Routine 08/23/2018 12:29 PM EDT Invasive ductal carcinoma of right breast VITAMIN D, 25-HYDROXY Routine 08/23/2018 12:29 PM EDT Invasive ductal carcinoma of right breast CBC (WITH DIFF) Routine 08/23/2018 12:29 PM EDT Invasive ductal carcinoma of right breast COMPREHENSIVE METABOLIC PANEL Routine 08/23/2018 12:29 PM EDT Invasive ductal carcinoma of right breast documented in this encounter Results * Differential, Automated (08/23/2018 12:29 PM EDT) Neutrophil % 71.7 % [facility] Neutrophil Absolute 4.96 1.70 - 6.10 x10(3)/[facility] Lymph % 20.3 % [facility] Lymphocytes Abs 1.4 0.9 - 3.2 x10(3)/[facility] Monocyte % 5.5 % [facility] Monocyte Abs 0.4 0.3 - 0.9 x10(3)/[facility] Eos % 2.2 % [facility] Eosinophils Abs 0.2 0.0 - 0.4 x10(3)/[facility] Basophil % 0.0 % [facility] Baso Absolute 0.0 0.0 - 0.1 x10(3)/[facility] Immature Gran % 0.30 % [facility] Comment: Immature granulocytes(IG's)percentage and absolute count will include metamyelocytes, myelocytes, and promyelocytes. Blood smears from CBCs yielding IG's will be scanned manually for concordance. If this scan disagrees with the automated IG or if promyelocytes are noted, a manual differential will be performed. Immature Gran Absolute 0.02 0.00 - 0.04 x10(3)/[facility] Blood specimen (specimen) 08/23/2018 12:29 PM EDT 08/23/2018 12:33 PM EDT Narrative Resulting Agency Comment Spec In Lab Shilpi Gallegos MD HEMATOLOGY ORDERABL ES Performing Organization Address City/State/[facility] Co de Phone Number [facility] [place] [address] * Hemogram (08/23/2018 12:29 PM EDT) White Blood Cell 6.9 4.0 - 9.5 x10(3)/[facility] Red Blood Cell 4.48 4.00 - 5.21 x10(6)/[facility] Hemoglobin 13.9 11.7 - 15.5 gm/dL [facility] Hematocrit 42.2 35.7 - 45.8 % [facility] Mean Cell Volume 94.2 82.6 - 94.4 fL [facility] Mean Cell Hemoglobin 31.0 27.1 - 32.0 pg [facility] Mean Cell Hemoglobin Concentration 32.9 31.7 - 35.0 gm/dL [facility] Platelet 165 145 - 357 x10(3)/[facility] RDW Standard Deviation 40.2 37.0 - 46.0 fL [facility] RDW coefficient of variation 11.6 11.5 - 14.1 % [facility] Mean Platelet Volume 10.0 7.6 - 12.9 fL [facility] NRBC% auto 0.0 % [facility] NRBC Absolute 0.000 0.000 - 0.000 x10(3)/[facility] Blood specimen (specimen) 08/23/2018 12:29 PM EDT 08/23/2018 12:33 PM EDT Narrative Resulting Agency Comment Spec In Lab Shilpi Gallegos MD HEMATOLOGY ORDERABL ES [facility] [place] [address] * Comprehensive metabolic panel (non-fasting) (08/23/2018 12:29 PM EDT) Glucose 79 65 - 199 mg/dL [facility] Comment:Diabetes: >=200 mg/d L plus symptoms Blood Urea Nitrogen 11 8 - 18 mg/dL [facility] Creatinine 0.80 0.70 - 1.20 mg/dL [facility] Sodium 144 135 - 145 mmol/L [facility] Potassium 3.6 3.5 - 5.0 mmol/L [facility] Comment: Please note: ??Patients with WBC >100,000 may have falsely elevated Potassium levels. ??For accurate Potassium quantification in these patients send serum separator tube (gold top) for subsequent determinations. ??Contact the Clinical Chemistry Laboratory if there are any questions. Chloride 105 98 - 107 mmol/L [facility] Carbon Dioxide 25 22 - 31 mmol/L [facility] Anion Gap 14 5 - 15 mmol/L [facility] Calcium 9.5 8.5 - 10.5 mg/dL [facility] Protein, Total 7.5 6.1 - 8.0 gm/dL [facility] Albumin 4.6 3.2 - 5.2 gm/dL [facility] Aspartate Aminotransferase 24 0 - 30 unit/L [facility] Alanine Aminotransferase 14 0 - 30 unit/L [facility] Alkaline Phosphatase 54 40 - 104 unit/L [facility] Bilirubin, Total 0.4 0.2 - 1.3 mg/dL [facility] Est Glomerular Filtration Rate 95 >=60 mL/min/1. 73 m?? [facility] Comment: The eGFR was calculated using the CKD-EPI equation. As with all creatinine based estimates of kidney function, eGFR values calculated with the CKD-EPI equation are not accurate in patients with acute kidney failure, extremes of body mass or the acutely ill. http://[employer]/DHMCnkf eGFR 110 >=60 mL/min/1. 73 m?? [facility] Comment: The eGFR was calculated using the CKD-EPI equation. As with all creatinine based estimates of kidney function, eGFR values calculated with the CKD-EPI equation are not accurate in patients with acute kidney failure, extremes of body mass or the acutely ill. http://[employer]/DHMCnkf Blood specimen (specimen) 08/23/2018 12:29 PM EDT 08/23/2018 12:33 PM EDT Narrative Resulting Agency Comment Spec In Lab Shilpi Gallegos MD CHEMISTRY ORDERABLE S [facility] [place] [address] * Vitamin D, 25-Hydroxy (08/23/2018 12:29 PM EDT) Vitamin D Total 25 OH 56 30 - 100 ng/mL [facility] Comment: Deficient <10 ng/mL Insufficient 10 to 29 ng/mL Sufficient 30 to 100 ng/mL Potential Intoxication >100 ng/mL According to the [place] National Osteoporosis Foundation, Vitamin D concentrations >30 ng/mL are sufficient to protect bone health. ??The National Kidney Foundation has similarly stated that patients with Vitamin D concentrations <30ng/mL should be considered to be insufficient or deficient. http://[employer]/nkf-guidelines http://[employer]/nejm-VitD The [employer] Vitamin D Immunoassay detects both 25-OH Vitamin D2 and 25-OH Vitamin D3, but only a total Vitamin D concentration is reported. Blood specimen (specimen) 08/23/2018 12:29 PM EDT 08/23/2018 1:37 PM EDT Narrative Resulting Agency Comment Spec In Lab Shilpi Gallegos MD CHEMISTRY ORDERABLE S [facility] [place] [address] documented in this encounter Visit Diagnoses Diagnosis Invasive ductal carcinoma of right breast documented in this encounter Care Teams Medical Billing Manager Relationship Specialty Start Date End Date Radha Acuna MD [address] [place] [address] [place] [address] PCP - General 08/07/11 documented as of this encounter
--- OUTSIDE RECORDS SUMMARY | 2024-04-07 16:39 | XMS_ITS | Encounter Summary ---
[place] [address] Care Team Providers Care Income Tax Adjuster Name Role Phone Radha Acuna MD Primary Care Provider +1- [phone] Reason for Visit * Reason Comments Follow Up Surgery Encounter Details Date Type Department Care Team (Late st Contact Info) Description 09/16/2017 11:15 AM EDT Office [place] [address] Mandie Gonzalez, INFUSION PHARMACIST History of breast cancer Social History Tobacco [...] this encounter Progress Notes * Mandie Gonzalez, INFUSION PHARMACIST - 09/16/2017 11:15 AM EDT Trina Frances??is a 37 y.o.??pt of [...] at the time of surgery and tissue non cdl driver followed by implant based reconstruction. She was [...] place.No rashes or nodules. No axillary adenopathy. Assessment/Plan: Normal chest wall exam,no evidence of local or regional recurrance. I will see her back in a year for a CBE or sooner if needed. She agrees. documented in this encounter Plan of Treatment Upcoming Encounters Date Type Department Care Team (Late st Contact Info) Description 06/30/2024 4:30 PM EDT Office Visit Hematology [place] [address] Shilpi Gallegos MD [facility] [place] [address] documented as of this encounter Visit Diagnoses Diagnosis History of breast cancer Personal history of malignant neoplasm of breast documented in this encounter Care Teams Income Tax Adjuster Relationship Specialty Start Date End Date Radha Acuna MD [address] [place] [address] [place] [address] PCP - General 08/07/11 documented as of this encounter
--- OUTSIDE RECORDS SUMMARY | 2024-04-07 16:39 | XMS_ITS | Encounter Summary ---
Author Organization [facility] [place] [address] Care Team Providers Care Carpentry Instructor Name Role Phone Radha Acuna MD Primary Care Provider +1- [phone] Reason for Visit * Reason Comments Follow Up Surgery s/p implant exchange Encounter Details Date Type Department Care Team (Latest Contact Info) Description 09/16/2017 10:30 AM EDT Office Visit [place] [address] Frantz Martínez MD [facility] [place] [address] Invasive ductal carcinoma of right breast; S/P breast reconstruction Social History Tobacco Use Types Packs/Day Years [...] this encounter Patient Instructions * Patient Instructions* Mai Tan - 09/16/2017 10:30 AM EDT Plan: Return annually or sooner with any concerns Continue daily implant massage documented in this encounter Progress Notes * Frantz Martínez MD - 09/16/2017 10:30 AM EDT Plastic Surgery Follow Up Note [...] n/a HPI: Pt reports she has been well since surgery. She has noticed some breast implant rippling, but this does not bother her. She is worried about the idea of recurrence, and has noticed a firm area at her medial right chest. Examination: Patient is alert, conversant, comfortable, ambulating Well healed incisions Good symmetry of volume, slightly more full superiorly on left than right NAC slightly pulled right Grade I capsules No palpable masses in the mastectomy skin Impression: Trina Frances is a 37 y.o. female who was seen today for follow-up after the above procedure. Please see the operative note for details. Doing well after her breast reconstruction with agood aesthetic result. We discussed the firm area she appreciates is her rib prominence, more noticeable after her mastectomies and removal of breast tissue. She will continue to massage the implant regularly to maintain soft capsules. Plan: Return annually or sooner with any concerns Continue daily implant massage I, Karin Tan, have performed the documentation for this encounter in the presence of and actingas a scribe for Dr. Martínez. I performed the services which were documented by the scribe, and I agree with the accuracy of the documentation in this encounter. FRANTZ MARTÍNEZ MD documented in this encounter Plan of Treatment Upcoming Encounters Date Type Department Care Team (Late st Contact Info) Description 06/30/2024 4:30 PM EDT Office Visit Hematology and Oncology at [place] [phone] Shilpi Gallegos MD [facility] [place] [address] documented as of this encounter Visit Diagnoses Diagnosis Invasive ductal carcinoma of right breast S/P breast reconstruction Breast replaced by other means documented in this encounter Care Teams Carpentry Instructor Relationship Specialty Start Date End Date Radha Acuna MD [address] [place] [address] [place] [address] PCP - General 08/07/11 documented as of this encounter
--- OUTSIDE RECORDS SUMMARY | 2024-04-07 16:39 | XMS_ITS | Encounter Summary ---
[place] [address] Care Team Providers Care Procurement Representative Name Role Phone Radha Acuna MD Primary Care Provider [phone]- [phone] Encounter Details Date Type Department Care Team (Latest Contact Info) Description 06/30/2017 6:51 AM EDT - 06/30/2017 11:59 PM EDT Hospital Encounter Hematology [place] [address] Invasive ductal carcinoma of right breast (Primary [...] Progress Notes * Zaida Dawson RN - 06/30/2017 7:14 AM EDT Patient Name: Trina Frances Patient Age: 37 y.o. Birthdate: 1980 Admit date: 06/30/2017 Attending Physician: No att. providers found Access visit. See MAR and/or flowsheet. documented in this encounter Plan of Treatment Upcoming Encounters Date Type Department Care Team (Late st Contact Info) Description 06/30/2024 4:30 PM EDT Office Visit Hematology [place] [id number] Shilpi Gallegos MD [facility] [address] [place] [address] documented as of this encounter Procedures Procedure Name Priority Date/Time Associated Diagnosis Comments HEMOGRAM STAT 06/30/2017 7:00 AM EDT Invasive ductal carcinoma of right breast DIFFERENTIAL, AUTOMATED STAT 06/30/2017 7:00 AM EDT Invasive ductal carcinoma of right breast CBC (WITH DIFF) STAT 06/30/2017 7:00 AM EDT Invasive ductal carcinoma of right breast COMPREHENSIVE METABOLIC PANEL STAT 06/30/2017 7:00 AM EDT Invasive ductal carcinoma of right breast documented in this encounter Results * Differential, Automated (06/30/2017 7:00 AM EDT) Pathologist [facility] Neutrophil % 56.0 % [facility] Neutrophil Absolute 2.62 1.70 - 6.10 x10(3)/[facility] Lymph % 28.0 % [facility] Lymphocytes Abs 1.3 0.9 - 3.2 x10(3)/[facility] Monocyte % 9.8 % [facility] Monocyte Abs 0.5 0.3 - 0.9 x10(3)/[facility] Eos % 6.0 % [facility] Eosinophils Abs 0.3 0.0 - 0.4 x10(3)/[facility] Basophil % 0.0 % [facility] Baso Absolute 0.0 0.0 - 0.1 x10(3)/[facility] Immature Gran % 0.20 % [facility] Comment: Immature granulocytes(IG's)percentage and absolute count will include metamyelocytes, myelocytes, and promyelocytes. Blood smears from CBCs yielding IG's will be scanned manually for concordance. If this scan disagrees with the automated IG or if promyelocytes are noted, a manual differential will be performed. Immature Gran Absolute 0.01 0.00 - 0.04 x10(3)/[facility] Blood specimen (specimen) 06/30/2017 7:00 AM EDT 06/30/2017 7:18 AM EDT Narrative Resulting Agency Comment Spec In Lab Shilpi Gallegos MD HEMATOLOGY ORDERABL ES [facility] [place] [address] * (ABNORMAL) Hemogram (06/30/2017 7:00 AM EDT) White Blood Cell 4.7 4.0 - 9.5 x10(3)/mc L [facility] Red Blood Cell 3.77(L) 4.00 - 5.21 x10(6)/mc L [facility] Hemoglobin 11.9 11.7 - 15.5 gm/dL [facility] Hematocrit 35.1(L) 35.7 - 45.8 % [facility] Mean Cell Volume 93.1 82.6 - 94.4 fL [facility] Mean Cell Hemoglobin 31.6 27.1 - 32.0 pg [facility] Mean Cell Hemoglobin Concentration 33.9 31.7 - 35.0 gm/dL [facility] Platelet 150 145 - 357 x10(3)/mc L [facility] RDW Standard Deviation 41.2 37.0 - 46.0 fL [facility] RDW coefficient of variation 12.0 11.5 - 14.1 % [facility] Mean Platelet Volume 9.4 7.6 - 12.9 fL [facility] NRBC% auto 0.0 % [facility] NRBC Absolute 0.000 0.000 - 0.000 x10(3)/mc L [facility] Blood specimen (specimen) 06/30/2017 7:00 AM EDT 06/30/2017 7:18 AM EDT Narrative Resulting Agency Comment Spec In Lab Shilpi Gallegos MD HEMATOLOGY ORDERABL ES [facility] [place] [address] * Comprehensive metabolic panel (non-fasting) (06/30/2017 7:00 AM EDT) Glucose 89 65 - 199 mg/dL [facility] Comment:Diabetes: >=200 mg/d L plus symptoms Blood Urea Nitrogen 14 8 - 18 mg/dL [facility] Creatinine 0.79 0.70 - 1.20 mg/dL [facility] Sodium 142 135 - 145 mmol/L [facility] Potassium 3.7 3.5 - 5.0 mmol/L [facility] Comment: Please note: ??Patients with WBC >100,000 may have falsely elevated Potassium levels. ??For accurate Potassium quantification in these patients send serum separator tube (gold top) for subsequent determinations. ??Contact the Clinical Chemistry Laboratory if there are any questions. Chloride 103 98 - 107 mmol/L [facility] Carbon Dioxide 28 22 - 31 mmol/L [facility] Anion Gap 11 5 - 15 mmol/L [facility] Calcium 9.2 8.5 - 10.5 mg/dL [facility] Protein, Total 6.6 6.1 - 8.0 gm/dL [facility] Albumin 4.0 3.2 - 5.2 gm/dL [facility] Aspartate Aminotransferase 20 0 - 30 unit/L [facility] Alanine Aminotransferase 11 0 - 30 unit/L [facility] Alkaline Phosphatase 70 40 - 104 unit/L [facility] Bilirubin, Total 0.2 0.2 - 1.3 mg/dL [facility] Est Glomerular Filtration Rate >60 >=60 [facility] Comment: The reported eGFR should be multiplied by 1.2 for patients. The MDRD is not an appropriate measure of renal function for patients with body mass extremes or in patients with acute kidney failure. http://[email or web address].H.BLOOM/DHnkdep http://Skigit/DHMCnkf Blood specimen (specimen) 06/30/2017 7:00 AM EDT 06/30/2017 7:18 AM EDT Narrative Resulting Agency Comment Spec In Lab Shilpi Gallegos MD CHEMISTRY ORDERABLE S [facility] [place] [address] documented in this encounter Visit Diagnoses Diagnosis Invasive ductal carcinoma of right breast- Primary documented in this encounter Administered Medications Inactive Administered Medications - up to 3 most recent administrations Medication Order MAR Action Action Date Dose Rate Site sodium chloride 0.9 % flush 20 mL 20 mL, Intravenous, ONCE, 1 dose, On Wed06/30/17 at 0730, Routine Given 06/30/2017 7:13 AM EDT 20 mLs documented in this encounter Care Teams Procurement Representative Relationship Specialty Start Date End Date Radha Acuna MD [address] [place] [address] [place] [address] PCP - General 08/07/11 documented as of this encounter
--- OUTSIDE RECORDS SUMMARY | 2024-04-07 16:39 | XMS_ITS | Encounter Summary ---
Author Organization [facility] [place] [address] Care Team Providers Care Fiber Analyst Name Role Phone Radha Acuna MD Primary Care Provider [phone]- [phone] Reason for Visit * Auth/Cert Specialty Diagnoses / Procedures Referred By Clara t Referred To Contact Diagnoses hotbed transfer operator replacement Procedures PRO REPLACE TISSUE SOCK EXAMINER TISSUE SOCK EXAMINER REPLACEMENT, WITH PERMANENT PROSTHESIS, MICHAEL (WRVU 8.01) Referral ID Status Reason Start Date Expiration Date Visits Re quested Visits Authorized [id number] 1 1 Encounter Details Date Type Department Care Team (Late st Contact Info) Description 06/09/2017 12:45 PM EST - 06/09/2017 2:30 PM EST Surgery [facility] [place] [address] Frantz Martínez MD [facility] [place] [address] TISSUE SOCK EXAMINER REPLACEMENT, WITH PERMANENT PROSTHESIS, MICHAEL (WRVU 7.49) Social History Tobacco Use Types Packs/Day Years [...] Sign Reading Time Taken Comments Blood Pressure 116/71 06/09/2017 12:17 PM EST Pulse 68 06/09/2017 12:17 PM EST Temperature 36.8 ??C (98.2 ??F) 06/09/2017 12:[address] Respiratory Rate 20 06/09/2017 12:17 PM EST Oxygen Saturation 99% 06/09/2017 12:17 PM EST Inhaled Oxygen Concentration - - Weight 53.1 kg (117 lb) 06/09/2017 12:17 PM EST Height 154.9 cm (5' 1) 06/09/2017 12:17 PM EST Body Mass Index 22.11 06/09/2017 12:17 PM EST documented in this encounter Discharge Instructions * Discharge Instructions* Joselyn Lim RN - 06/09/2017 1:05 PM EST At 1 pm you received 1000 mg of acetaminophen- Your next dose should not be taken before 8 hours have passed. Next dose not before- 9 pm You should not take more than a total of 3000 mg of acetaminophen in a 24 hour period. General Anesthesia Discharge Instructions Go home and rest. You may be sleepy for several hours. Take it easy as sudden position changes may cause nausea and/or dizziness. Use caution on stairs. Do not smoke if you are alone. Follow a light to regular diet as tolerated today. If nausea occurs, start with clear liquids, and progress slowly to a regular diet. Do not drive, operate machinery, drink alcoholic beverages or make any legal decisions after havinggeneral anesthesia. The medications given change your reaction time and alter your judgement. IV site -- slight redness is normal, you can use warm compresses. If tenderness and redness increases or foul drainage occurs, please contact your M.D. Patients who have had endotracheal tubes/LMA (tubes used by the anesthesia staff to ensure a safe airway during your operation) may have a sore throat. This is normal and cold liquids or soothing lozengers will help ease this discomfort. Narcotic pain medications can cause constipation, please ask the surgeons office what they recommend for prevention of this. Some non-pharmaceutical means of constipation prevention include increasing intake of fluids, eating more fruits and vegetables as well as fruit juices. If you are uncomfortable and/or unable to urinate within 8 hours of discharge and it is before 5 pm, call your physician. If it is after 5pm go to the closest emergency room or call the hospital baker operator automatic at [phone] and ask for physician sanitation laborer covering for your physician. Questions or problems after 5pm or on a weekend: Call the [facility] baker operator automatic at and ask for the physician sanitation laborer covering for your doctor. * Patient Instructions* Frantz Martínez MD - 06/09/2017 1:40 PM EST No strenuous activity stretching with the upper extremities or motion that puts tension on the incision lines for 3 full weeks. Call for signs of infection including redness fever drainage or concerns. Okay to shower in 48 hours. Call [phone] for questions or concerns. documented in this encounter Medications at Time [...] as of this encounter Progress Notes * Neisha Angel RN - 06/09/2017 3:55 PM EST Discharge instructions and medications reviewed with patient and Rudi. All questions answered and written copy sent home with patient. documented in this encounter H&P Notes * Frantz Martínez MD - 06/09/2017 1:25 PM EST PLASTIC SURGERYrFantz Martínez M.D. HPI: Trina Frances is a 36 y.o. female here for tissue hotbed transfer operator removal and replacement with silicone implant. No new health issues. Past Medical History: Diagnosis Date ??? Environmental [...] TISSUE REINFORCEMENT (WRVU 3.65) performed by Ajit Martínez MD at [facility] OR ??? PRO BREAST RECONSTRUC W TISS EXPANDR Right 03/15/2017 BREAST RECONSTRUCTION, IMMEDIATE OR DELAYED, WITH TISSUE SOCK EXAMINER INCLUDING SUBSEQUENT EXPANSION-MICHAEL (WRVU 18.5) performed by Frantz Martínez MD at [facility] OR ??? PRO BX/REMV, LYMPH NODE, DEEP AXILL Right 03/15/2017 BIOPSY OR EXCISION OF LYMPH NODE(S), OPEN, DEEP AXILLARY NODE(S) (WRVU 6.43) performed by Ruby Negro MD at [facility] OR ??? PRO INTRAOP SENTINEL LYMPH ID W/DYE INJECTION Right 03/15/2017 INTRAOPERATIVE ID (MAPPING) SENTINEL LYMPH NODE,INCLUDES INJECTION (WRVU 2.5) performed by Ruby Negro MD at [facility] OR ??? PRO MASTECTOMY, SIMPLE, COMPLETE Bilateral 03/15/2017 MASTECTOMY, SIMPLE, COMPLETE-MICHAEL (WRVU 15.85) performed by Ruby Negro MD at [facility] OR ??? TONSILLECTOMY Social History Social History ??? Marital status: [...] ??? Not on file Social History Narrative Allergies Allergen Reactions ??? Aspirin Hives ??? Hydrocodone-Acetaminophen Hives ??? Tegaderm [Transparent Dressings] Dermatitis Use mepilex ??? Tioconazole No current facility-administered medications on file prior to encounter. Current Outpatient Prescriptions on File Prior to Encounter Medication Sig Dispense Refill ??? acetaminophen (TYLENOL) 500 mg Tablet Take 2 tablets by mouth every 8 hours. 30 tablet 0 ??? polyethylene glycol (MIRALAX) 17 gram Powder in Packet Take 17 g by mouth daily as needed. ??? docusate sodium (COLACE) 100 mg Capsule Take 100 mg by mouth daily. ??? LACTOBACILLUS ACIDOPHILUS (PROBIOTIC ORAL) Take by mouth daily. ??? multivitamin (THERAGRAN) Tablet Take 1 tablet by mouth daily. ??? cetirizine (ZYRTEC) 10 mg tablet ??? lidocaine-prilocaine (EMLA) Cream Apply small amount of cream using q-tip on mediport site approx 30-60 minutes before access. Cover site with saran wrap. 30 g 3 REVIEW OF SYSTEMS: GI, . Psych, Neuro, Renal, Immun., Heme, Card, Pulm: Negative EXAMINATION: Constitutional: NAD HEENT: MMM, normocephalic, EOMI Pulm: symmetric excursion, unlabored, no audible wheeze Cor: pulse regular Assessment: Trina Frances 36 y.o. female patient with bilateral tissue expanders in place. We discussed the placement of a permanent silicone implant today. We will plan to place the same size implant potentially 1 one size smaller [id number] or 250 cc implant. I reviewed with her I will attempt to perform a medial inferior capsulotomy but will need to be cautious to avoid symmastia. She was marked in the standing position with her present all of her questions were answered. We discussed potential risks and complications which include but are not limited to: Pain, bleeding, infection, scarring, asymmetry, hematoma, seroma, poor cosmetic outcome, failure ofprocedure, possible need for revision, damage to adjacent structures. Recommendations: ??? To OR for implant exchange and capsulotomy. ? documented in this encounter Miscellaneous Notes * Op Note - Frantz Martínez MD - 06/09/2017 3:04 PM EST [facility] [place] Patient Name: Trina Frances : [id number] MR#: [id number] Case Date: 06/09/2017 Surgeon: Surgeon(s) and Role: * Frantz Martínez MD - Primary Preoperative diagnosis: hotbed transfer operator replacement Postoperative diagnosis: hotbed transfer operator replacement Procedure(s) (LRB): TISSUE SOCK EXAMINER REPLACEMENT, WITH PERMANENT PROSTHESIS, MICHAEL (WRVU 8.01) (Bilateral) BREAST, CAPSULOTOMY, OPEN PERIPROSTHETIC -MICHAEL (WRVU 9.17) (Bilateral) Anesthesia: General Estimated Blood Loss: * No values recorded between 06/09/2017 1:55 PM and 06/09/2017 3:01 PM * Specimens removed during surgery: None Drains: Drain/Device Site 03/15/17 1153 Left breast (Active) Drain/Device Site 03/15/17 1155 Right breast (Active) Surgical Closure: Primary Closure - closure of ALL tissue levels during the original surgery regardless of wires, wickes, drains, or other devices extruding through the incision Disposition: awakened from anesthesia, extubated and taken to the recovery room in a stable condition, having suffered no apparent untoward event. Condition: doing well without problems (Please see the Surgical Encounter Summary for any Implant and Specimen details pertinent to this patient.) HPI/Surgical Indications/Procedure Description: Trina Frances is a 36 y.o. female is a 36 y.o. woman s/p mastectomy and tissue hotbed transfer operator reconstruction. She has been expanded to a volume of 275 cc and now presents for implant exchange. She was given a single prophylactic dose of antibiotics and SCD boots placed in the preoperative area. The patient was then brought to the Main Operating Room where she was placed supine on the Operating Room table. After the induction of general endotracheal anesthesia, the chest wall was prepared and draped. Using the prior incisions the hotbed transfer operator was removed first by sharply incising the skin elevating skin flaps approximately 1 cm inferiorly. The capsule was entered the expanders removed volume of the expanders was 275 cc bilaterally. She required a significant capsulotomy at the soup at the medial aspect and inferior aspect of the breast bilaterally. The capsule was quite tethered this was resultedin the significant lateral displacement of the inferior aspect of the of the hotbed transfer operator. Of note bothexpanders appear to be slightly rotated which exacerbated this medial deficit. Along the medial aspect of the of the capsule from approximately from approximately the 4:00 in the 8 o'clock position me dially on the left than the right respectively the capsulotomy was performed along the inferior border of the capsule. This was released along the chest wall approximately to the midline of the of the of the breast pocket. Radial incisions were made in the capsule as well. Temporary sizers were placed in the breast pocket bilaterally and inflated to 275 cc. The capsule was temporarily closed. Theright side required additional modification to assure symmetry and to release the capsule as there was a tethering of the capsule in the superior medial aspect. Once this was complete there was excellent symmetry the breast pocket position had been notably improved at the inferior medial aspect. This point time both breast pockets were irrigated hemostasis was assured with electrocautery. Both pockets were irrigated with regular saline and then irrigated with antibiotic saline the chest wall was then was then cleaned with antibiotic solution. Clean drapes are placed in the chest and then the implants were placed in both pockets using a Hidalgo funnel. A no touch technique was used changing gloves prior to handling of the implants and the implant was only handled once placing it into the calcar funnel and then placing it into the pocket. The capsule was closed with 4-0 PDS in interrupted fashion then 4-0 PDS in the deep dermal layer and then 4-0 Monocryl in the skin. Dermabond was applie d a bra was placed and the patient was then lightened from anesthesia and transferred to the PACU. Implant Name Type Inv. Item Serial No. Auto Inspection Specialist Lot No. LRB No. Used Action MAMMA,SMTH,RND,MDRT,+,275CC ([id number]) (AUTOREQ) - [id number] IMPLANTS MAMMA,SMTH,RND,MDRT,+,275CC ([id number]) (AUTOREQ) [id number] [employer] - [id number] Left 1 Implanted MAMMA,SMTH,RND,MDRT,+,275CC ([id number]) (AUTOREQ) - [id number] IMPLANTS MAMMA,SMTH,RND,MDRT,+,275CC ([id number]) (AUTOREQ) [id number] [employer] - [id number] Right 1 Implanted Infection Bundle used? No Attestation: Case Date: 06/09/2017 I was present and I participated during the entire procedure (does not need to include opening and closing). FRANTZ MARTÍNEZ MD 06/09/2017 * Brief Op Note - Frantz Martínez MD - 06/09/2017 3:03 PM EST Brief Operative Note Patient Name: Trina Frances : [id number] MR#: [id number] Case Date: 06/09/2017 Surgeon: Surgeon(s) and Role: * Frantz Martínez MD - Primary Preoperative diagnosis: hotbed transfer operator replacement Postoperative diagnosis: hotbed transfer operator replacement Procedure(s) (LRB): TISSUE SOCK EXAMINER REPLACEMENT, WITH PERMANENT PROSTHESIS, MICHAEL (WRVU 8.01) (Bilateral) BREAST, CAPSULOTOMY, OPEN PERIPROSTHETIC -MICHAEL (WRVU 9.17) (Bilateral) Anesthesia: General Findings: Intact tissue expanders filled to 275 cc bilaterally. Complications: None. Intake: Intraprocedure Crystalloid Total None Transfusion No data found. Output: Estimated Blood Loss: * No values recorded between 06/09/2017 1:55 PM and 06/09/2017 3:01 PM * Urine Output:: (no blood products) Other Output: (no other output recorded) Drains: None. Specimens removed during surgery: None Disposition: awakened from anesthesia, extubated and taken to the recovery room in a stable condition, having suffered no apparent untoward event. Condition: doing well without problems Attestation: Case Date: 06/09/2017 I performed this procedure without the involvement of a resident. (Please see the Surgical Encounter Summary for any Implant and Specimen details pertinent to this patient.) documented in this encounter Plan of Treatment Upcoming Encounters Date Type Department Care Team (Late st Contact Info) Description 06/30/2024 4:30 PM EDT Office Visit Hematology [place] [address] Shilpi Gallegos MD [facility] DR HEMATOLOGY [place] [address] documented as of this encounter Procedures Procedure Name Priority Date/Time Associated Diagnosis Comments BREAST, CAPSULOTOMY, OPEN PERIPROSTHETIC -MICHAEL (WRVU 9.17) 06/09/2017 1:33 PM EST hotbed transfer operator replacement TISSUE SOCK EXAMINER REPLACEMENT, WITH PERMANENT PROSTHESIS, MICHAEL (WRVU 7.49) 06/09/2017 1:33 PM EST hotbed transfer operator replacement IMPLANTABLE DEVICES SCAN 06/09/2017 12:00 AM EST documented in this encounter Results * SCAN DOC: IMPLANTABLE DEVICES (06/09/2017 12:00 AM EST) Narrative 06/09/2017 12:00 AM EST Ordered by an unspecified provider. Scanning Provider MEDIA MGR SCAN EXT O RDR/RSLT documented in this encounter Visit Diagnoses Not on filedocumented in this encounter Administered Medications Inactive Administered Medications - up to 3 most recent administrations Medication Order MAR Action Action Date Dose Rate Site acetaminophen (TYLENOL) tablet 1,000 mg 1,000 mg, Oral, ONCE, 1 dose, On Wed06/09/17 at 1330, Maximum dose of acetaminophen is 4000 mg from all sources in 24 hours., Routine Given 06/09/2017 1:04 PM EST 1,000 mg lactated Ringers infusion 1,000 mL 1,000 mL, at 100 mL/hr, Intravenous, CONTINUOUS, Starting on Wed06/09/17 at 1230, Until Wed06/09/17 at 1649, Day of Surgery (Day of Procedure) New Bag 06/09/2017 2:15 PM EST New Bag 06/09/2017 1:00 PM EST 1,000 mLs 100 mL/hr lidocaine-EPINEPHrine 1 %-1:100,000 injection ONCE PRN, Starting on Wed06/09/17 at 1355, Until Wed06/09/17 at 1850, Intra-Operative (Intra-Procedure), Routine Given 06/09/2017 1:55 PM EST 3 mLs 19- Surgical Site documented in this encounter Active and Recently Administered Medications Times are shown in EST. Scheduled Medication Order 06/07/2017 06/08/2017 06/09/2017 acetaminophen (TYLENOL) tablet 1,000 mg (COMPLETED) 1,000 mg, Oral, ONCE, 1 dose, On Wed06/09/17 at 1330, Maximum dose of acetaminophen is 4000 mg from all sources in 24 hours., Routine 1304 (Given - Provid er: Joselyn Lim RN) Continuous Medication Order 06/07/2017 06/08/2017 06/09/2017 lactated Ringers infusion 1,000 mL (CANCELED) 1,000 mL, at 100 mL/hr, Intravenous, CONTINUOUS, Starting on Wed06/09/17 at 1230, Until Wed06/09/17 at 1649, Day of Surgery (Day of Procedure) 1300 (New Bag - Prov ider: Joselyn Lim RN)1415 (New Bag - Provider: Sarahi Dawson CRNA)1500 (Anesthesia Volume Adjustment - Provider: Sarahi Dawson CRNA) PRN Medication Order 06/07/2017 06/08/2017 06/09/2017 lidocaine-EPINEPHrine 1 %-1:100,000 injection (CANCELED) ONCE PRN, Starting on Wed06/09/17 at 1355, Until Wed06/09/17 at 1850, Intra-Operative (Intra-Procedure), Routine 1355 (Given - Provid er: Frantz Martínez MD) No Frequency Medication Order 06/07/2017 06/08/2017 06/09/2017 ceFAZolin (ANCEF) 2 gram/100 mL infusion PgBk 1 dose, Starting on Wed06/09/17 at 1216, Until Wed06/09/17 at 1850, SISI BISHOP: cabinet override 1230 (Due) documented in this encounter Care Teams Fiber Analyst Relationship Specialty Start Date End Date Radha Acuna MD [address] [place] [address] [place] [address] PCP - General 08/07/11 documented as of this encounter
--- OUTSIDE RECORDS SUMMARY | 2024-04-07 16:39 | XMS_ITS | Encounter Summary ---
Author Organization [facility] [place] [address] Care Team Providers Care Plush Dresser Name Role Phone Radha Acuna MD Primary Care Provider +1- [phone] Encounter Details Date Type Department Care Team (Late st Contact Info) Description 06/30/2017 Orders Only H[place] [phone] Frantz Rios MD Social History Tobacco Use Types Packs/Day Years [...] EDT Office Visit Hematology [place] [phone] Shilpi Gallegos MD [facility] [place]EMATOLOG[place] [address] documented as of this encounter Visit Diagnoses Not on filedocumented in this encounter Care Teams Plush Dresser Relationship Specialty Start Date End Date Radha Acuna MD [address] [place] [address] [place] [address] PCP - General 08/07/11 documented as of this encounter
--- OUTSIDE RECORDS SUMMARY | 2024-04-07 16:39 | XMS_ITS | Encounter Summary ---
[place] [address] Care Team Providers Care Warehouse Selector Name Role Phone Radha Acuna MD Primary Care Provider +1- [phone] Encounter Details Date Type Department Care Team (Late st Contact Info) Description 07/20/2017 Telephone Hematology [place] [address] Patricia Voss RN Social History Tobacco Use Types Packs/Day [...] encounter Miscellaneous Notes * Telephone Encounter - Patricia Voss RN - 07/20/2017 2:28 PM EDT RN placed call to pt to assess readiness for chemo administration tomorrow per chemo ready patient protocol. Pt reports in the last 24hrs: Fever >100.4:No Other symptoms of infection:Denies Change from baseline neuropathy:no Change in stool frequency/consistency:no Stomach pain:no Rashes:no Is patient coming to appt for chemotherapy tomorrow:yes documented in this encounter Plan of Treatment Upcoming Encounters Date Type Department Care Team (Late st Contact Info) Description 06/30/2024 4:30 PM EDT Office Visit Hematology [place] [address] Shilpi Gallegos MD [facility] HEMATOLOGY [place] [address] documented as of this encounter Visit Diagnoses Not on filedocumented in this encounter Care Teams Warehouse Selector Relationship Specialty Start Date End Date Radha Acuna MD [address] [place] [address] [place] [address] PCP - General 08/07/11 documented as of this encounter
--- OUTSIDE RECORDS SUMMARY | 2024-04-07 16:39 | XMS_ITS | Encounter Summary ---
[place] [address] Care Team Providers Care Decision Support Manager Name Role Phone Radha Acuna MD Primary Care Provider +1- [phone] Encounter Details Date Type Department Care Team (Late st Contact Info) Description 05/16/2018 Refill Hematology [place] [address] Radha Riggins, RN Social History Tobacco Use [...] Telephone Encounter - Radha Riggins RN - 05/16/2018 3:27 PM EST Message received: Patient called to say she takes Diflucan as needed. ??She has run out and would like a prescription called into the [facility] in [place], [place]. ??I reminded her that we do ask for 2-3 day notice for prescriptions. PLan: Refill pended to [employer] for approval if in agreement documented in this encounter Plan of Treatment Upcoming Encounters Date Type Department Care Team (Late st Contact Info) Description 06/30/2024 4:30 PM EDT Office Visit [place]ematology [place] [address] Shilpi Gallegos MD [facility] DR [place] [address] documented as of this encounter Visit Diagnoses Not on filedocumented in this encounter Care Teams Decision Support Manager Relationship Specialty Start Date End Date Radha Acuna MD [address] [place] [address] [place] [address] PCP - General 08/07/11 documented as of this encounter
--- OUTSIDE RECORDS SUMMARY | 2024-04-07 16:39 | XMS_ITS | Encounter Summary ---
Author Organization [facility] [place] [address] Care Team Providers Care Case Mgr Name Role Phone Radha Acuna MD Primary Care Provider +1- [phone] Encounter Details Date Type Department Care Team (Late st Contact Info) Description 05/24/2018 Orders Only Hematology [place] [phone] Shilpi Gallegos MD [facility] HEMATOLOGY [place] [address] Chronic right hip pain Social History Tobacco [...] EDT Office Visit Hematology [place] [phone] Shilpi Gallegos MD [facility] HEMATOLOGY [place] [address] documented as of this encounter Visit Diagnoses Diagnosis Chronic right hip pain Pain in joint, pelvic region and thigh documented in this encounter Care Teams Case Mgr Relationship Specialty Start Date End Date Radha Acuna MD [address] [place] [address] [place] [address] PCP - General 08/07/11 documented as of this encounter
--- OUTSIDE RECORDS SUMMARY | 2024-04-07 16:39 | XMS_ITS | Encounter Summary ---
[place] [address] Care Team Providers Care Sales Development Consultant Name Role Phone Radha Acuna MD Primary Care Provider +1- [phone] Reason for Visit * Reason Onset Date Comments Follow-up 09/29/2017 Encounter Details Date Type Department Care Team (Late st Contact Info) Description 09/29/2017 Telephone [place] [address] Mandie Gonzalez, MICHELINE Follow-up Social History Tobacco Use Types Packs/Day Years [...] encounter Miscellaneous Notes * Telephone Encounter - Mandie Gonzalez APRN - 09/29/2017 8:12 AM EDT I called Trina to discuss follow up after her breast imaging was performed which showed benign findings/soft tissue overlying a rib. She is reassured by this and I am recommending PRN surgical follow up with me at this time.Javier agrees with this plan, agrees to monitor her breast exam and will call me in the future with any new breast concerns. She does have an appt with Dr Gallegos next month. documented in this encounter Plan of Treatment Upcoming Encounters Date Type Department Care Team (Late st Contact Info) Description 06/30/2024 4:30 PM EDT Office Visit Hematology [place] [address] Shilpi Gallegos MD [facility] DR [place] [address] documented as of this encounter Visit Diagnoses Not on filedocumented in this encounter Care Teams Sales Development Consultant Relationship Specialty Start Date End Date Radha Acuna MD [address] [place] [address] [place] [address] PCP - General 08/07/11 documented as of this encounter
--- OUTSIDE RECORDS SUMMARY | 2024-04-07 16:39 | XMS_ITS | Encounter Summary ---
Author Organization [facility] [place] [address] Care Team Providers Care Stunt Person Name Role Phone Radah Acuna MD Primary Care Provider +1- [phone] Encounter Details Date Type Department Care Team (Late st Contact Info) Description 07/26/2017 Orders Only Hematology [place] [address] Megan Sebastian APRN [facility] [place] [address] Invasive ductal carcinoma of right breast Social [...] EDT Office Visit Hematology [place] [address] Shilpi Gallegos MD [facility] [place] [address] documented as of this encounter Visit Diagnoses Diagnosis Invasive ductal carcinoma of right breast documented in this encounter Care Teams Stunt Person Relationship Specialty Start Date End Date Radha Acuna MD [address] [place] [address] [place] [address] PCP - General 08/07/11 documented as of this encounter
--- OUTSIDE RECORDS SUMMARY | 2024-04-07 16:39 | XMS_ITS | Encounter Summary ---
Author Organization [facility] [place] [address] Care Team Providers Care Harbor Police Lieutenant Name Role Phone Radha Acuna MD Primary Care Provider +1- [phone] Reason for Visit * Reason Onset Date Comments Results 06/01/2018 waiting for resu lts of labs and xray Encounter Details Date Type Department Care Team (Late st Contact Info) Description 06/01/2018 Telephone Hematology [place] [phone] Ashley Maldonado RN Results (waiting for results of labs and xray) Social History Tobacco Use Types Packs/Day Years [...] Telephone Encounter - Ashley Maldonado RN - 06/01/2018 2:50 PM EST Message Received: Call rec'd from patient wondering about results from xray/labs she had drawn at [facility]. T/C to Patient: Per Dr. Gallegos, all labs and xrays normal. Patient states hip pain remains, not as bad as before. She will hold off on PT at this time. She will call if pain worsens and request PT Plan: Appointment with Dr. Gallegos August 09. Patient to call with increased pain PT consult if pain worsens. Patient to call with any worsening pain or discomfort. documented in this encounter Plan of Treatment Upcoming Encounters Date Type Department Care Team (Late st Contact Info) Description 06/30/2024 4:30 PM EDT Office Visit Hematology [place] [address] Shilpi Gallegos MD [facility] DR [place] [address] documented as of this encounter Visit Diagnoses Not on filedocumented in this encounter Care Teams [employer] Police Lieutenant Relationship Specialty Start Date End Date Radha Acuna MD [address] [place] [address] [place] [address] PCP - General 08/07/11 documented as of this encounter
--- OUTSIDE RECORDS SUMMARY | 2024-04-07 16:40 | XMS_ITS | Encounter Summary ---
Author Organization [facility] Address [place] [address] Care Team Providers Care Technical Developer Name Role Phone Radha Acuna MD Primary Care Provider +1- [phone] Encounter Details Date Type Department Care Team (Late st Contact Info) Description 04/29/2017 Notes Only [place] [address] Kayla Johnston Social History Tobacco Use Types Packs/Day Years [...] as of this encounter Progress Notes * Kayla Johnston - 04/29/2017 10:33 AM EST Student completed and submitted JAF application. P: [facility] will continue to provide as needed psychosocial supports to pt. documented in this encounter Plan of Treatment Upcoming Encounters Date Type Department Care Team (Late st Contact Info) Description 06/30/2024 4:30 PM EDT Office Visit Hematology [place] [address] Shilpi Gallegos MD [facility] DR HEMATOLOGY [place] [address] documented as of this encounter Visit Diagnoses Not on filedocumented in this encounter Care Teams Technical Developer Relationship Specialty Start Date End Date Radha Acuna MD [address] [place] [address] [place] [address] PCP - General 08/07/11 documented as of this encounter
--- OUTSIDE RECORDS SUMMARY | 2024-04-07 16:40 | XMS_ITS | Encounter Summary ---
Author Organization [facility] Nav[place] [id number] Care Team Providers Care Brick Offbearer Name Role Phone Radha Acuna MD Primary Care Provider +1- [phone] Reason for Visit * Physical Therapy (Routine) - Closed Specialty Diagnoses / Procedures Referred By Clara cisneros Referred To Contact Physical Therapy Diagnoses Breast cancer Ruby Negro MD [facility] GENERAL SURGERY [place] [address] [facility] [place] [address] Referral ID Status Reason Start Date Expiration Date Visits Re quested Visits Authorized [id number] Closed 02/10/2017 02/10/2018 1 1 Encounter Details Date Type Department Care Team (Late st Contact Info) Description 03/24/2017 10:00 AM EST Office [place] [address] George Soto, PT Breast pain; Axillary pain, right Social History Tobacco Use Types Packs/Day Years [...] as of this encounter Progress Notes * George Soto, PT - 03/24/2017 10:00 AM EST PHYSICAL THERAPY EVALUATION Date of Exam/First treatment: 03/24/17 Date of Onset 03/15/17 Referring Provider: Ruby Negro V Primary Insurance: Payor: [email or web address] / Plan: [email or web address] EMP / Product Type: *No Product type* / Diagnosis and pertinent co-morbidities: total treatment time: 40minutes total timed code treatment minutes: 0 1 evaluation CURRENT HISTORY: Trina Frances is a 36 y.o. female s/p daisha adjuvant chemo and bilateral mastectomy with expanders placed 0+/8 nodes. Adjuvant Treatment pending: Hormonal, Social: Pt. lives in [facility] with supportive and two young children. 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 Hopes to return to work in 8-12 weeks. Function/exercise history:walked most days for 20 min and did yoga 1 X a week for 60 min. Pain: Achiness on breasts and sides and down center of back. 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 CLINICAL FINDINGS: Posture: Protective posture rounded shoulders Range of motion right left Sh flexion 70 80 Sh abduction 60 65 Sh ER 40 40 Sh IR Strength: deferred Palpation/inspection: drains removed today, still with clear wrap across breasts CLINICAL EVALUATION AND DIAGNOSIS: pt with limited rom, discomfort and dysfuction to benefit from skilled PT for manual therapy, home ex. Clinical decision making of moderate complexity using standardized patient assessment instrument and measurable assessment of functional outcome. The patient's rehabilitation potential is good. GOALS: Therapy Short Term Goals: 2 weeks 1. Increase ROM 10 degrees 2. Decrease pain to 2-5/10 3. Able to sleep in bed Therapy Maintenance Data Analyst Goals: 10 weeks 1. Full functional use of UE without discomfort 2. Independent in al home ex INITIAL TREATMENT INCLUDED: Evaluation and instruction in shoulder shrugs and rolls, first 3 ex on sheet to begin in two days, educaiton about lymphedem precautions and exercise benefits for cancers survivors Plan: Treatment: Home ex, education and manual therapy Frequency and Duration: 3-4 visits for rom and function Will be coming here for expansion weekly The plan has been discussed with the patient and she has agreed with it. GEORGE SOTO PT documented in this encounter Plan of Treatment Upcoming Encounters Date Type Department Care Team (Late st Contact Info) Description 06/30/2024 4:30 PM EDT Office Visit Hematology [place] [address] Shilpi Gallegos MD [facility] DR HEMATOLOGY AND ONCOLOGY [place] [address] documented as of this encounter Visit Diagnoses Diagnosis Breast pain Mastodynia Axillary pain, right documented in this encounter Care Teams Brick Offbearer Relationship Specialty Start Date End Date Radha Acuna MD [address] [place] [address] [place] [address] PCP - General 08/07/11 documented as of this encounter
--- OUTSIDE RECORDS SUMMARY | 2024-04-07 16:40 | XMS_ITS | Encounter Summary ---
Author Organization [facility] Address [facility] [place] [address] Care Team Providers Care Brake Repairer Hydraulic Name Role Phone Radha Acuna MD Primary Care Provider +1- [phone] Reason for Visit * Reason Comments Chemotherapy * Treatment/Therapy Plan Authorization (Routine) - Closed Specialty Diagnoses / Procedures Referred By Contgabriela t Referred To Contact Diagnoses Invasive ductal carcinoma of right breast Procedures TC TRASTUZUMAB, 10MG, INJECTION (HERCEPTIN) TC CHEMO ADMIN, IV INFUSION, UP TO 1HR, SINGLE/INITIAL DRUG TC CHEMO ADMIN, IV INFUSION, EA ADDL HR, SINGLE/INITIAL DRUG Shilpi Gallegos MD [facility] [place] [address] [facility] Hem Onc [address] [place] [address] Referral ID Status Reason Start Date Expiration Date Visits Re quested Visits Authorized [id number] Closed 03/31/2017 02/14/2019 17 17 Encounter Details Date Type Department Care Team (Latest Contact Info) Description 06/08/2017 8:23 AM EST - 06/08/2017 11:59 PM EST Hospital Encounter Hematology [place] [address] Invasive ductal carcinoma of right [...] Sign Reading Time Taken Comments Blood Pressure 99/62 06/08/2017 8:39 AM EST Pulse 57 06/08/2017 8:39 AM EST Temperature 36.4 ??C (97.5 ??F) 06/08/2017 8:39 AM ES T Respiratory Rate 16 06/08/2017 8:39 AM EST Oxygen Saturation 100% 06/08/2017 8:39 AM EST Inhaled Oxygen Concentration - - Weight 53.7 kg (118 lb 6.4 oz) 06/08/2017 8:29 A M EST Height 155.5 cm (5' 1.22) 06/08/2017 8:29 AM ES T Body Mass Index 22.21 06/08/2017 8:29 AM EST documented in this encounter Medications at Time [...] of this encounter Progress Notes * Susan Alvares RN - 06/08/2017 8:39 AM EST Patient Name: Trina Frances Patient Age: 36 y.o. Birthdate: 1980 Admit date: 06/08/2017 Attending Physician: Britta att. providers found TIME TREATMENT STARTED: 0835 TIME TREATMENT ENDED: 1000 Trina Frances, 36 y.o. female with diagnosis of Breast cancer is here for chemotherapy infusion ofHerceptin. PROTOCOL: no CYCLE: 1 WEEK: n/a DAY: 43 S: Pt. offers no complaints at this time. O: Chemotherapy orders independently verified for correct drug name, route and dosage per patient'sheight, weight and BSA by Amanda Alvares RN and onsite pharmacist REACTIONS (DESCRIPTION, TIME, INTERVENTION AND EFFECTIVENESS) None reported. A: Pt. Tolerated treatment well. Trina Frances confirms that all questions and issues have been addressed. Patient denies further need. P: Return to clinic per routine documented in this encounter Plan of Treatment Upcoming Encounters Date Type Department Care Team (Late st Contact Info) Description 06/30/2024 4:30 PM EDT Office Visit Hematology [place] [address] Shilpi Gallegos MD [facility] DR HEMATOLOGY [place] [address] documented as of this encounter Visit Diagnoses Diagnosis Invasive ductal carcinoma of right breast documented in this encounter Administered Medications Inactive Administered Medications - up to 3 most recent administrations Medication Order MAR Action Action Date Dose Rate Site heparin, porcine 100 unit/mL flush 500 Units 500 Units, Intravenous, ONCE PRN, Starting on Wed06/08/17 at 0830, Until Wed06/09/17 at 0436, Line Care, Refer to Intravenous (IV) Procedure: Accessing Implanted Vascular Access Devices (724) procedure and/or Intravenous (IV) Job Aid: Adult Flushing & Catheter Care (5216) job aid for additional information regarding guidelines and administration., Routine Given 06/08/2017 9:56 AM EST 500 Units sodium chloride 0.9 % flush 5-20 mL 5-20 mL, Intravenous, EVERY 1 MIN PRN, Starting on Wed06/08/17 at 0830, Until Wed06/09/17 at 0436, Line Care, Flush pertains to all indwelling lines. Flush per protocol found in the job aid using the link provided on this medication record. Refer to Intravenous (IV) Job Aid: Adult Flushing & Catheter Care (2663) job aid for additional information regarding guidelines and administration., Routine Given 06/08/2017 9:56 AM EST 20 mLs TRASTuzumab (HERCEPTIN) 300 mg in sodium chloride 0.9% 264.3 mL infusion 300 mg, Intravenous, ONCE, 1 dose, On Wed06/08/17 at 0930, Administer over 30 Minutes, Dose Ordered = 310 mg (6 mg/kg). Pharmacist rounded dose per procedure. New Bag 06/08/2017 9:17 AM EST 300 mg 528.6 mL/hr documented in this encounter Care Teams Brake Repairer Hydraulic Relationship Specialty Start Date End Date Radha Acuna MD [address] [place] [address] PCP - General 08/07/11 documented as of this encounter
--- OUTSIDE RECORDS SUMMARY | 2024-04-07 16:40 | XMS_ITS | Encounter Summary ---
Author Organization [facility] [place] [address] Care Team Providers Care Peach Grower Name Role Phone Radha Acuna MD Primary Care Provider +1- [phone] Encounter Details Date Type Department Care Team (Latest Contact Info) Description 03/31/2017 Multidisciplinary Ca re Committee [place] [address] [facility] DR [place] [address] Social History Tobacco Use Types Packs/Day Years [...] as of this encounter Progress Notes * Ewa Mcnamara MD - 03/31/2017 12:20 PM EST Breast - Tumor Board Note Date Presented: 03/31/2017 Presenting Physician: Jere Diagnosis/Tumor Site: right breast Is this Metastatic Disease: No Synopsis of History/HPI:Trina Frances??is a 36 y.o.??woman who, in 07/2016, noted a tender right breast lump without skin changes or nipple discharge. ??On 09/11/16, she underwent a mammogram followed by ultrasound showing 2 right breast masses and right axilla node 1.2cm. ??Biopsy showed invasive ductal carcinoma, grade 2 with DCIS. ??HER2+ (FISH HER2:CEP-17 = 10), ER+/LA+ (11-90%). ??A right axilla node biopsy was [...] at the time of surgery and tissue septic tank service technician based reconstruction. Partial path response with residual foci all < 1mm and dcis. 0/8 nodes No LVI There were 2 distinct areas of tumor and no intervening treatment effect. Clinical Trial Availability: none Options Discussed: discussed role of PMRT. Given 2 separate lesions without evidence of large tumor, (but possible T3 disease) could consider PMRT for residual disease but given triple positive tumor, may be of less benefit. Continue herceptin to complete one year and endocrine therapy. Seeing PT- r ecommend ongoing PT Recommendations: Radiation Oncology consult DISCLAIMER: The patient was discussed and the tumor board made recommendations but it is ultimatelyup to the treatment provider(s) and the patient to determine the patient???s care. documented in this encounter Plan of Treatment Upcoming Encounters Date Type Department Care Team (Late st Contact Info) Description 06/30/2024 4:30 PM EDT Office Visit Hematology [place] [address] [facility] DR HEMATOLOGY [place] [address] documented as of this encounter Visit Diagnoses Not on filedocumented in this encounter Care Teams Peach Grower Relationship Specialty Start Date End Date Radha Acuna MD [address] [place] [address] PCP - General 08/07/11 documented as of this encounter
--- OUTSIDE RECORDS SUMMARY | 2024-04-07 16:40 | XMS_ITS | Encounter Summary ---
[facility] [place] [address] Care Team Providers Care Machine Maintenance Servicer Name Role Phone Radha Acuna MD Primary Care Provider +1- [phone] Encounter Details Date Type Department Care Team (Late st Contact Info) Description 05/31/2017 Telephone [place] [address] Patricia Voss RN Social History [...] Telephone Encounter - Patricia Voss RN - 05/31/2017 11:57 AM EST Message from provider: I got your message from the nurse, and it is ok to stop the tamoxifen for surgery, this will lower the risk for developing blood clots. It's ok to continue the herceptin as scheduled though because that doesn't have any risk for clots or complications from the surgery. Please make sure pt is aware of this response, see below, it bounced back as unread. Thanks Patient returned call. She is aware that she should stop Tamoxifen 2 weeks prior to surgery. She will ask surgeon regarding when it is ok to restart. She is aware that it is ok to continue herceptin as prescribed. She verbalized understanding and is in agreement with this plan. documented in this encounter Plan of Treatment Upcoming Encounters Date Type Department Care Team (Late st Contact Info) Description 06/30/2024 4:30 PM EDT Office Visit [place] [address] Shilpi Gallegos MD [facility] DR HEMATOLOGY [place] [address] documented as of this encounter Visit Diagnoses Not on filedocumented in this encounter Care Teams Machine Maintenance Servicer Relationship Specialty Start Date End Date Radha Acuna MD [address] [place] [address] [place] [address] PCP - General 08/07/11 documented as of this encounter
--- OUTSIDE RECORDS SUMMARY | 2024-04-07 16:40 | XMS_ITS | Encounter Summary ---
[place] [address] Care Team Providers Care Distributing Clerk Name Role Phone Radha Acuna MD Primary Care Provider +1- [phone] Encounter Details Date Type Department Care Team (Late st Contact Info) Description 05/17/2017 Telephone [place] [address] Patricia Voss RN Social History [...] Telephone Encounter - Patricia Voss RN - 05/17/2017 10:15 AM EST Patient is having surgery 06/09 they recommend she stop taking tamoxifen 14 days prior, is this ok. Also she wants to know if she should still have her infusion of Herceptin close to surgery date? Please advise [phone] ?? Thank you Thi Response from Dr. Power: Yes she should stop her tamoxifen as directed, but it's ok to continue herceptin right up to surgery. T/C to patient: Discussed with patient that she should hold tamoxifen as recommended by her surgeonand to continue herceptin, per Dr. Power. Patient verbalized understanding of this plan and is in agreement. documented in this encounter Plan of Treatment Upcoming Encounters Date Type Department Care Team (Late st Contact Info) Description 06/30/2024 4:30 PM EDT Office Visit [place] [address] Shilpi Gallegos MD [facility] DR HEMATOLOGY [place] [address] documented as of this encounter Visit Diagnoses Not on filedocumented in this encounter Care Teams Distributing Clerk Relationship Specialty Start Date End Date Radha Acuna MD [address] [place] [address] [place] [address] PCP - General 08/07/11 documented as of this encounter
--- OUTSIDE RECORDS SUMMARY | 2024-04-07 16:40 | XMS_ITS | Encounter Summary ---
Author Organization [facility] Address [facility] [place] [address] Care Team Providers Care Licensed Physical Therapist Assistant Name Role Phone Radha Acuna MD Primary Care Provider +1- [phone] Reason for Visit * Reason Comments Follow-up Encounter Details Date Type Department Care Team (Late st Contact Info) Description 04/28/2017 1:30 PM EST Office Visit Hematology [place] [address] Shilpi Gallegos MD [facility] HEMATOLOGY [place] [address] Invasive ductal carcinoma of right breast; Chronic midline thoracic back pain Social History Tobacco Use Types Packs/Day [...] Sign Reading Time Taken Comments Blood Pressure 104/65 04/28/2017 1:14 PM EST Pulse 73 04/28/2017 1:14 PM EST Temperature 36.7 ??C (98.1 ??F) 04/28/2017 1:14 PM ES T Respiratory Rate 18 04/28/2017 1:14 PM EST Oxygen Saturation 98% 04/28/2017 1:14 PM EST Inhaled Oxygen Concentration - - Weight 51.8 kg (114 lb 3.2 oz) 04/28/2017 1:14 P M EST Height 154.8 cm (5' 0.95) 04/28/2017 1:14 PM ES T Body Mass Index 21.62 04/28/2017 1:14 PM EST documented in this encounter Progress Notes * Shilpi Gallegos MD - 04/28/2017 1:30 PM EST Subjective: Patient ID: Trina Frances is a 36 y.o. female. Cc: breast cancer Interval history: Trina is doing well. She is here with her Rudi. She starts adjuvant trastuzumab today. Echo last week at was stable. PT was very helpful to improve range of motion, and upper back pain is improved. She met with Maria Del Rosario Finn re: PMRT, and her case is borderline given the radiographic characterists at diagnosis. She was referred to [facility] for a second opinion but hasn't decided whether she's goingto do that or not. 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 On 09/11/16, she underwent a mammogram followed by ultrasound showing 2 right anca ast masses and right axilla node 1.2cm. Biopsy showed invasive ductal carcinoma, grade 2 with DCIS.HER2+ (FISH HER2:CEP-17 = 10), ER+/CA+ (11-90%). A right axilla node biopsy was [...] IDCA. Focal DCIS high grade, no LVI. [id number] 09/11/16- MAMMO BREAST US LIMITED BILATERAL, MAMMO [...] cancer cells with immunostaining, Stain Intensity Moderate. CA immunoreactivity: ??Positive 11-90% cancer cells with immunostaining, Stain Intensity Moderate to focal Strong. [id number] FISH is amplified. B - ??Needle biopsies: [...] isto Treated DCIS, 3 mm) Lymph Nodes ?Chauvin Lymph Nodes: ?? Chauvin lymph node biopsy performed ?Number of Chauvin Nodes Examined: ?8 ?Lymph Node Involvement: ?? None identified In summary, Trina Frances is a 36 yo woman with right breast IDC, ER/CA+, zoh2vdh+. Initial imaging suggested a disease process spanning ~7cm (though MRI and PET scan shows 2 discrete lesions measuring ~13mm and 1 cm). She was treated with neoadjuvant chemotherapy followed by mastectomy with residual microinvastion and 0 of 8 LNs involved. pT1mi ??pN0 Cycle 1 adjuvant trastuzumab 04/28/17 Review of Systems Constitutional: Negative. HENT: Negative. Eyes: Negative. Respiratory: Negative. Cardiovascular: Negative. Gastrointestinal: Negative. Endocrine: Negative. Genitourinary: Negative. Musculoskeletal: Negative. Allergic/Immunologic: Negative. Neurological: Negative. Hematological: Negative. [...] range of motion. Neck supple. Cardiovascular: Normal rate. Pulmonary/Chest: Effort normal. Abdominal: Soft. Bowel sounds are normal. Musculoskeletal: Normal range of motion. Neurological: She is alert and oriented to person, place, and time. Skin: Skin is warm and dry. She is not diaphoretic. Psychiatric: She has a normal mood and affect. Her behavior is normal. Judgment and thought contentnormal. Nursing note and vitals reviewed. Recent Results (from the past 24 hour(s)) Comprehensive metabolic panel (non-fasting) Result Value Ref Range Glucose Lvl 140 65 - 199 mg/dL BUN 15 8 - 18 mg/dL Creatinine 0.85 0.70 - 1.20 mg/dL Sodium 140 135 - 145 mmol/L Potassium 3.7 3.5 - 5.0 mmol/L Chloride 99 98 - 107 mmol/L CO2 30 22 - 31 mmol/L Anion Gap 11 5 - 15 mmol/L Calcium 9.8 8.5 - 10.5 mg/dL Total Protein 7.2 6.1 - 8.0 gm/dL Albumin 4.3 3.2 - 5.2 gm/dL AST 27 0 - 30 unit/L ALT 11 0 - 30 unit/L Alk Phos 80 40 - 104 unit/L Total Bilirubin 0.2 0.2 - 1.3 mg/dL Estimated GFR >60 >=60 Hemogram Result Value Ref Range WBC 4.6 4.0 - 9.5 x10(3)/mcL RBC 3.59 (L) 4.00 - 5.21 x10(6)/mcL Hemoglobin 11.9 11.7 - 15.5 gm/dL Hematocrit 35.2 (L) 35.7 - 45.8 % MCV 98.1 (H) 82.6 - 94.4 fL MCH 33.1 (H) 27.1 - 32.0 pg MCHC 33.8 31.7 - 35.0 gm/dL Platelets 163 145 - 357 x10(3)/mcL RDWSD 38.7 37.0 - 46.0 fL RDWCV 10.9 (L) 11.5 - 14.1 % MPV 9.6 7.6 - 12.9 fL nRBC % Auto 0.0 % nRBC Abs Auto 0.000 0.000 - 0.000 x10(3)/mcL Differential, Automated Result Value Ref Range Neutrophils % 51.1 % Neutr Abs (ANC) 2.33 1.70 - 6.10 x10(3)/mcL Lymphocytes % 36.0 % Lymphocytes Abs 1.6 0.9 - 3.2 x10(3)/mcL Monocytes % 7.2 % Monocyte Abs 0.3 0.3 - 0.9 x10(3)/mcL Eosinophils % 5.5 % Eosinophils Abs 0.2 0.0 - 0.4 x10(3)/mcL Basophils % 0.0 % Basophils Abs 0.0 0.0 - 0.1 x10(3)/mcL Immature Gran % 0.20 % Dalia Gran Abs 0.01 0.00 - 0.04 x10(3)/mcL Assessment and Plan: No problem-specific Assessment & Plan notes found for this encounter. ?? #1 Breast cancer--Stage I HER2 positive ER+ breast cancer downstaged from T1c to [id number] by NAC. Wediscussed the issues around radiation, and the fact that we won't ever be able to tell precisely how big the invasive component was. If most of it was DCIS, then there is no additional benefit to RT.But if most of it was invasive, then there could be a benefit, and the overall risks are relatively low. ?? Trina is considering surgical menopause but has reviewed the relative benefits and risks and for now prefers to focus quality of life rather than quantity, and is worried about s/e of premature menopause. This is understandable, but her feelings may also change control specialist time as she recovers from treatments and surgery. Longer f/u presented at [facility] last week continues to show improvement in outcome forwomen under 35 who proceed with ovarian suppression in addition to either tamoxifen or AI. We will continue to discuss it. For now, she is willing to start tamoxifen and to continue trastuzumab. ?? Back pain started during chemotherapy and persists but is improved with PT. I expect this is musculoskeletal, but if pain persists, would follow with further evaluation, possible bone scan. ?? #2 Chemotherapy--monitoring for toxicity--resolved physically,echo stable. Labs improved. ?? #3 Fatigue--improving. ?? #4 Menopausal symptoms--amenorrheic, + hot flashes. Menses are likely to recover and when they do, we can discuss again risks / benefits of ovarian suppression vs other endocrine methods. Her husbandhas had a vasectomy, so no issues with fertility/ control. ?? #5 Bone health--will address when she pursues OS, otherwise low risk for osteoporosis. ?? #6 Medication management --no new prescriptions today. Will plan to f/u in 6-9 wks to assess tolerance to tamoxifen and decision re: PMRT. ?? #7 Transitional Care Summary: will set up in near future with one of our METAL SHEET ROLLER OPERATOR's. ?? Time: 30 minutes of this 40 minute visit was spent in counseling patient on treatment options and assessment and plan. [id number] visit 40 min History and Physical: 10 min. Discussion pts of counseling: as outlined above. documented in this encounter Plan of Treatment Upcoming Encounters Date Type Department Care Team (Late st Contact Info) Description 06/30/2024 4:30 PM EDT Office Visit Hematology [place] [address] Shilpi Gallegos MD [facility] DR HEMATOLOGY [place] [address] documented as of this encounter Visit Diagnoses Diagnosis Invasive ductal carcinoma of right breast Chronic midline thoracic back pain documented in this encounter Care Teams Licensed Physical Therapist Assistant Relationship Specialty Start Date End Date Radha Acuna MD [address] [place] [address] [place] [address] PCP - General 08/07/11 documented as of this encounter
--- OUTSIDE RECORDS SUMMARY | 2024-04-07 16:40 | XMS_ITS | Encounter Summary ---
[place] [address] Care Team Providers Care Table Games Supervisor Name Role Phone Radha Acuna MD Primary Care Provider +1- [phone] Reason for Visit * Reason Onset Date Comments Disability Paperwork 05/13/2017 Encounter Details Date Type Department Care Team (Late st Contact Info) Description 05/13/2017 Telephone Hematology [place] [address] Libby Gutierrez Disability Paperwork Social History Tobacco Use Types Packs/Day Years [...] encounter Miscellaneous Notes * Telephone Encounter - Libby Price - 05/28/2017 11:21 AM EST 05/28/17 Received request for LTD and records. Per request records and LTD forms had not yet been received. Refaxed LTD form Manually, refaxed records electronically. * Telephone Encounter - Libby Price - 05/13/2017 2:53 PM EST Completed LTD paperwork faxed 05/10/17 @ 10:12am. Requested records electronically faxed. documented in this encounter Plan of Treatment Upcoming Encounters Date Type Department Care Team (Late st Contact Info) Description 06/30/2024 4:30 PM EDT Office Visit Hematology [place] [address] Shilpi Gallegos MD [facility] [place] [address] documented as of this encounter Visit Diagnoses Not on filedocumented in this encounter Care Teams Table Games Supervisor Relationship Specialty Start Date End Date Radha Acuna MD [address] [place] [address] [place] [address] PCP - General 08/07/11 documented as of this encounter
--- OUTSIDE RECORDS SUMMARY | 2024-04-07 16:40 | XMS_ITS | Encounter Summary ---
Author Organization [facility] [place] [address] Care Team Providers Care Real Estate Sales Agent Name Role Phone Radha Acuna MD Primary Care Provider +1- [phone] Reason for Visit * Auth/Cert Specialty Diagnoses / Procedures Referred By Clara cisneros Referred To Contact Diagnoses program officer replacement Procedures PRO REPLACE TISSUE PRODUCTS MECHANICAL DESIGN ENGINEER TISSUE PRODUCTS MECHANICAL DESIGN ENGINEER REPLACEMENT, WITH PERMANENT PROSTHESIS, MICHAEL (WRVU 8.01) Referral ID Status Reason Start Date Expiration Date Visits Re quested Visits Authorized [id number] 1 1 Encounter Details Date Type Department Care Team (Latest Contact Info) Description 06/09/2017 11:18 AM EST - 06/09/2017 4:42 PM [facility] Hospital Encounter [place] [address] Frantz Martínez MD [facility] [address] Discharge Disposition: Home Social History Tobacco Use [...] Sign Reading Time Taken Comments Blood Pressure 129/68 06/09/2017 3:30 PM EST Pulse 57 06/09/2017 3:09 PM EST Temperature 36.1 ??C (97 ??F) 06/09/2017 3:09 PM EST Respiratory Rate 16 06/09/2017 3:09 PM EST Oxygen Saturation 98% 06/09/2017 3:30 PM EST Inhaled Oxygen Concentration - - [...] closest emergency room or call the hospital cable way operator at [phone] and ask for physician non emergency services ambulance driver covering for your physician. Questions or problems after 5pm or on a weekend: Call the [facility] cable way operator at and ask for the physician non emergency services ambulance driver covering for your doctor. * Patient Instructions* Frantz Martínez MD - 06/09/2017 1:40 PM EST No strenuous activity stretching with the upper extremities or motion that puts tension on the incision lines for 3 full weeks. Call for signs of infection including redness fever drainage or concerns. Okay to shower in 48 hours. Call [phone] for questions or concerns. documented in this [...] MD - 06/09/2017 1:25 PM EST PLASTIC SURGERYFrantz Martínez M.D. HPI: Trina Frances is a 36 y.o. female here for tissue program officer removal and replacement with silicone implant. No [...] 3.65) performed by Ajit Martínez MD at [facility] MAIN OR ??? PRO BREAST RECONSTRUC W TISS EXPANDR Right 03/15/2017 BREAST RECONSTRUCTION, IMMEDIATE OR DELAYED, WITH TISSUE PRODUCTS MECHANICAL DESIGN ENGINEER INCLUDING SUBSEQUENT EXPANSION-MICHAEL (WRVU 18.5) performed by Frantz Martínez MD at [facility] OR ??? PRO BX/REMV, LYMPH NODE, DEEP AXILL Right 03/15/2017 BIOPSY OR EXCISION OF LYMPH NODE(S), OPEN, DEEP AXILLARY NODE(S) (WRVU 6.43) performed by Ruby Negro MD at [facility] OR ??? PRO INTRAOP SENTINEL LYMPH ID W/DYE INJECTION Right 03/15/2017 INTRAOPERATIVE ID (MAPPING) SENTINEL LYMPH NODE,INCLUDES INJECTION (WRVU 2.5) performed by Ruby Negro MD at [facility] OR ??? PRO MASTECTOMY, SIMPLE, COMPLETE Bilateral 03/15/2017 MASTECTOMY, SIMPLE, COMPLETE-MICHAEL (WRVU 15.85) performed by Ruby Negro MD at [facility] OR ??? TONSILLECTOMY Social History Social [...] size implant potentially 1 one size smaller or 250 cc implant. I reviewed with [...] Martínez MD - 06/09/2017 3:04 PM EST [facility] Operative Note Patient Name: Trina Frances : [id number] MR#: [id number] Case Date: 06/09/2017 Surgeon: Surgeon(s) and Role: * Frantz Martínez MD - Primary Preoperative diagnosis: program officer replacement Postoperative diagnosis: program officer replacement Procedure(s) (LRB): TISSUE PRODUCTS MECHANICAL DESIGN ENGINEER REPLACEMENT, WITH PERMANENT PROSTHESIS, MICHAEL (WRVU [...] 36 y.o. woman s/p mastectomy and tissue program officer reconstruction. She has been expanded to a [...] and draped. Using the prior incisions the program officer was removed first by sharply incising the [...] the inferior aspect of the of the program officer. Of note bothexpanders appear to be slightly [...] Implant Name Type Inv. Item Serial No. Exercise Physiologist Certified Lot No. LRB No. Used Action MAMMA,SMTH,RND,MDRT,+,275CC ([id number]) (AUTOREQ) - [id number] IMPLANTS MAMMA,SMTH,RND,MDRT,+,275CC ([id number]) (AUTOREQ) [id number] [place] - [facility] Left 1 Implanted MAMMA,SMTH,RND,MDRT,+,275CC ([id number]) (AUTOREQ) - [id number] IMPLANTS MAMMA,SMTH,RND,MDRT,+,275CC ([id number]) (AUTOREQ) [id number] [place] - [id number] Right 1 Implanted Infection Bundle used? No Attestation: Case Date: 06/09/2017 I was present and I participated during the entire procedure (does not need to include opening and closing). FRANTZ MARTÍNEZ MD 06/09/2017 * Brief Op Note - Frantz Martínez MD - 06/09/2017 3:03 PM EST Brief Operative Note Patient Name: Trina Frances : [id number] MR#: [id number] Case Date: 06/09/2017 Surgeon: Surgeon(s) and Role: * Frantz Martínez MD - Primary Preoperative diagnosis: program officer replacement Postoperative diagnosis: program officer replacement Procedure(s) (LRB): TISSUE PRODUCTS MECHANICAL DESIGN ENGINEER REPLACEMENT, WITH PERMANENT PROSTHESIS, MICHAEL (WRVU [...] Upcoming Encounters Date Type Department Care Team (Arnol Contact Info) Description 06/30/2024 4:30 PM EDT Office Visit Hematology [place] [address] Shilpi Gallegos MD [facility] [place] [address] documented as of this encounter Procedures Procedure Name Priority Date/Time Associated Diagnosis Comments BREAST, CAPSULOTOMY, OPEN PERIPROSTHETIC -MICHAEL (WRVU 9.17) 06/09/2017 1:33 PM EST program officer replacement TISSUE PRODUCTS MECHANICAL DESIGN ENGINEER REPLACEMENT, WITH PERMANENT PROSTHESIS, MICHAEL (WRVU 7.49) 06/09/2017 1:33 PM EST program officer replacement IMPLANTABLE DEVICES SCAN 06/09/2017 12:00 AM [...] 1:00 PM EST 1,000 mLs 100 mL/hr documented in this encounter Active and Recently [...] (Due) documented in this encounter Care Teams Real Estate Sales Agent Relationship Specialty Start Date End Date Radha Acuna MD [address] [place] [address] [place] [address] PCP - General 08/07/11 documented as of this encounter
--- OUTSIDE RECORDS SUMMARY | 2024-04-07 16:40 | XMS_ITS | Encounter Summary ---
Author Organization [facility] Address [facility] [place] [address] Care Team Providers Care Insurance Counsel Name Role Phone Radha Acuna MD Primary Care Provider +1- [phone] Reason for Visit * Reason Comments Follow-up Encounter Details Date Type Department Care Team (Late st Contact Info) Description 03/31/2017 9:30 AM EST Office Visit [place]ology [place] [address] Shilpi Gallegos MD [facility] [place] [address] Invasive ductal carcinoma of right breast; Chronic [...] Sign Reading Time Taken Comments Blood Pressure 124/67 03/31/2017 9:19 AM EST Pulse 66 03/31/2017 9:19 AM EST Temperature 36.6 ??C (97.9 ??F) 03/31/2017 9:19 AM ES T Respiratory Rate 16 03/31/2017 9:19 AM EST Oxygen Saturation 100% 03/31/2017 9:19 AM EST Inhaled Oxygen Concentration - - Weight 51.3 kg (113 lb) 03/31/2017 9:19 AM EST Height 155.8 cm (5' 1.34) 03/31/2017 9:19 AM ES T Body Mass Index 21.12 03/31/2017 9:19 AM EST documented in this encounter Progress Notes * Shilpi Gallegos MD - 03/31/2017 9:30 AM EST Subjective: Patient ID: Trina Frances is a 36 y.o. female. Cc: breast cancer Interval history: Trina had surgery 03/15 and is doing pretty well since then, but has reduced ROM of left arm, and back pain when she lays flat disturbing her ability to sleep. Takes a tylenol PM some nights, helps for several hours then she wakes up again. Tentatively planning to go back to work in about 1 month. No more difficulties with nosebleeds or easy bruising. Still having hot flashes, no menses. has had a vasectomy. 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 On 09/11/16, she underwent a mammogram followed by ultrasound showing 2 right anca ast masses and right axilla node 1.2cm. Biopsy showed invasive ductal carcinoma, grade 2 with DCIS.HER2+ (FISH HER2:CEP-17 = 10), ER+/NM+ (11-90%). A right axilla node biopsy was [...] IDCA. Focal DCIS high grade, no LVI. [id number] Review of Systems Constitutional: Positive for activity change. HENT: Negative. Eyes: Negative. Respiratory: Negative. Cardiovascular: Negative. Gastrointestinal: Negative. Endocrine: Negative. Genitourinary: Negative. Musculoskeletal: Positive for arthralgias and back pain. Skin: Negative. Allergic/Immunologic: Negative. Neurological: Negative. Hematological: [...] has no wheezes. She has no rales. Chest wall is not dull to percussion. She exhibits no mass, no tenderness, no bony tenderness, no laceration, no crepitus, no edema, no deformity, no swelling and no retraction. Right breast exhibits no mass and no tenderness. Left breast exhibits no mass and no tenderness. Abdominal: Soft. Bowel sounds are normal. She exhibits no distension and no mass. There is no tenderness. There is no rebound and no guarding. Musculoskeletal: She exhibits no edema, tenderness or deformity. Left shoulder: She exhibits decreased range of motion. Lymphadenopathy: She has no cervical adenopathy. Neurological: She is alert and oriented to person, place, and time. She displays normal reflexes. She exhibits abnormal muscle tone. Coordination normal. Skin: Skin is warm and dry. No rash noted. She is not diaphoretic. No erythema. No pallor. Psychiatric: She has a normal mood and affect. Her behavior is normal. Judgment and thought contentnormal. Nursing note and vitals reviewed. Assessment and Plan: No problem-specific Assessment & Plan notes found for this encounter. #1 Breast cancer--Stage I HER2 positive ER+ breast cancer downstaged from T1c to [id number] by NAC. Given her overall excellent prognosis and complications with thrombocytopenia and nose bleeds, would not recommend continuing with adjuvant pertuzumab as APHINITY was not done in the neoadjuvant settingand benefit is not known for this population, with an increased risk of hematologic and financial toxicity. Trina is considering surgical menopause but has reviewed the relative benefits and risks and for now prefers to focus quality of life rather than quantity, and is worried about s/e of premature menopause. This is understandable, but her feelings may also price changer time as she recovers from treatments and surgery. Longer f/u presented at [facility] last week continues to show improvement in outcome forwomen under 35 who proceed with ovarian suppression in addition to either tamoxifen or AI. We will continue to discuss it. Trastuzumab to resume in approximately 1 month. For now, recommend PT eval to assess plan for improvement in ROM of left arm, and assess her back pain and difficulty laying flat. I expect this is musculoskeletal, but if pain persists, would followwith further evaluation, possible bone scan. #2 Chemotherapy--monitoring for toxicity--resolved physically, but emotionally the recovery can take several years. Recommend DFCI program for young women survivors, info given. #3 Fatigue--improving. 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 #4 Menopausal symptoms--amenorrheic, + hot flashes. Menses are likely to recover and when they do, we can discuss again risks / benefits of ovarian suppression vs other endocrine methods. Her husbandhas had a vasectomy, so no issues with fertility/ control. #5 Bone health--will address if she pursues OS, otherwise low risk for osteoporosis. #6 Medication management --no new prescriptions today. Will plan to f/u in 1 month to start herceptin, and tamoxifen. #7 Transitional Care Summary: will set up in near future with one of our INSPECTOR RECEIVING's. Time: 30 minutes of this 40 minute visit was spent in counseling patient on treatment options and assessment and plan. Emxy-ol-fplq visit 40 min History and Physical: 10 min. Discussion pts of counseling: as outlined above. documented in this encounter Plan of Treatment Upcoming Encounters Date Type Department Care Team (Late st Contact Info) Description 06/30/2024 4:30 PM EDT Office Visit [place]ematology [place] [address] Shilpi Gallegos MD [facility] DR [place]EM[place] [address] documented as of this encounter Visit Diagnoses Diagnosis Invasive ductal carcinoma of right breast Chronic midline thoracic back pain documented in this encounter Care Teams Insurance Counsel Relationship Specialty Start Date End Date Radha Acuna MD [address] [place] [address] [place] [address] PCP - General 08/07/11 documented as of this encounter
--- OUTSIDE RECORDS SUMMARY | 2024-04-07 16:40 | XMS_ITS | Encounter Summary ---
[place] [address] Care Team Providers Care Blood Bank Manager Name Role Phone Radha Acuna MD Primary Care Provider +1- [phone] Encounter Details Date Type Department Care Team (Late st Contact Info) Description 03/31/2017 10:00 AM EST Office Visit Hematology [place] [address] Elizabeth Rosales, PT Pain of both breasts; Breast swelling Social History Tobacco Use Types Packs/Day Years [...] as of this encounter Progress Notes * Elizabeth Rosales, PT - 03/31/2017 10:00 AM EST PHYSICAL THERAPY Progress Note Date of Exam/First treatment: 03/24/17 Date of Onset 03/15/17 Referring Provider: Ruby Negro V Primary Insurance: Payor: [employer] / Plan: [employer] DH EMP / Product Type: *No Product type* / Diagnosis and pertinent co-morbidities: total treatment time: 40minutes total timed code treatment minutes: 2 units of exercise 1 unit manual therapy CURRENT HISTORY: Trina Frances is a 36 y.o. female s/p daisha adjuvant chemo and bilateral mastectomy with expanders placed 0+/8 nodes. Adjuvant Treatment pending: Hormonal, Social: Pt. lives in [facility] with supportive and two young children. Work: works [place] [employer] [place] [employer]riatory. Hopes to return to work in 8-12 weeks. Function/exercise history:walked most days for 20 min and did yoga 1 X a week for 60 min. Pain: Achiness on breasts and sides and down center of back. Can't sleep at night due to pain francisco javier Back pain, still sleeping in recline 3-7/ S: Pt now sleeping in bed, reports back and chest still sore, but able to lie flat. Just had secondfill. Has been able to do some of the exercises. O: Pt asks how she might start to think about returning to work. Usually works 2 12 hour days. Beginning 6 hour days could be a place to start and see how she does. Pt would like to try that in 4 weeks. Observation: scars healing well, little swelling. TX: MLD in supine X 10 min followed by rom ex with cane over head and snow isaias and torso twist. Pt has difficulty doing these, but is able to have excellent increase in rom see below FUNCTIONAL LIMITATIONS: On a difficulty scale with 0 being unable to perform an activity, and 10 being able to perform at a pre injury level she rates work, drive long distances, shop, clean your house, pear picker her son.. CLINICAL FINDINGS: Posture: Protective posture rounded shoulders Range of motion right12/20 Left 12/20 Sh flexion 70 110 80 120 Sh abduction 60 70 65 75 Sh ER 40 40 Sh IR Strength: deferred A; Pt should have decreased discomfort once she begins to move more. P: See pt when she is back at [employer], pt to continue all home ex, adding new ones from today. GOALS: Therapy Short Term Goals: 2 weeks 1. Increase ROM 10 degrees 2. Decrease pain to 2-5/10 3. Able to sleep in bed Therapy Fpc Goals: 10 weeks 1. Full functional use of UE without discomfort 2. Independent in al home ex INITIAL TREATMENT INCLUDED: Evaluation and instruction in shoulder shrugs and rolls, first 3 ex on sheet to begin in two days, educaiton about lymphedem precautions and exercise benefits for cancers survivors ELIZABETH L CIOFFREDI, PT documented in this encounter Plan of Treatment Upcoming Encounters Date Type Department Care Team (Late st Contact Info) Description 06/30/2024 4:30 PM EDT Office Visit Hematology [place] [address] Shilpi Gallegos MD [facility] [place] [address] documented as of this encounter Visit Diagnoses Diagnosis Pain of both breasts Breast swelling Lump or mass in breast documented in this encounter Care Teams Blood Bank Manager Relationship Specialty Start Date End Date Radha Acuna MD [address] [place] [address] [place] [address] PCP - General 08/07/11 documented as of this encounter
--- OUTSIDE RECORDS SUMMARY | 2024-04-07 16:40 | XMS_ITS | Encounter Summary ---
Author Organization [facility] [place] [address] Care Team Providers Care Appeals Rn Name Role Phone Radha Acuna MD Primary Care Provider +1- [phone] Reason for Visit * Reason Comments Follow Up Surgery bilat reconst with t issue expanders Encounter Details Date Type Department Care Team (Latest Contact Info) Description 03/24/2017 9:00 AM EST Clinical Support [place] [address] Surgery follow-up Social History Tobacco Use Types [...] * Patient Instructions* Libby Matos RN - 03/24/2017 9:00 AM EST Signs of Infection : A [...] symptoms please call our nurse's line at [phone] M - F 8 - 5 Okay to shower Continue antibiotics for 24 hrs documented in this encounter Progress Notes * Tonya Griffith APRN - 03/24/2017 9:00 AM EST Patient taking one tablet of Oxycodone 5 mg at night. She is taking Ibuprofen and Tylenol. Continued need for more at night. Patient given prescription for 7 more tablets. One per night for one more week. Plan for no more after than. Patient agrees with the plan. * Libby Matos RN - 03/24/2017 9:00 AM EST Reason for Visit: Postoperative Evaluation s/p Case Date: 03/15/2017 ?? Surgeon: Surgeon(s) and Role: Panel 1: * Ruby Negro MD - Primary * Tye Goel MD ?? Panel 2: * Frantz Zurita MD - Primary * Niki Bass PA - Physician Conveyor Technician ?? Preoperative diagnosis: RIGHT BREAST CANCER ?? Postoperative diagnosis: * No post-op diagnosis entered * ?? Procedure(s) (LRB): MASTECTOMY, SIMPLE, COMPLETE-MICHAEL (WRVU 15.85) (Bilateral) BIOPSY OR EXCISION OF LYMPH NODE(S), OPEN, DEEP AXILLARY NODE(S) (WRVU 6.43) (Right) INTRAOPERATIVE ID (MAPPING) SENTINEL LYMPH NODE,INCLUDES INJECTION (WRVU 2.5) (Right) MODIFIER SENTINEL NODE EXCISION (Right) MODIFIER , NIPPLE SPARING (Left) BREAST RECONSTRUCTION, IMMEDIATE OR DELAYED, WITH TISSUE MACHINE BURRER INCLUDING SUBSEQUENT EXPANSION-MICHAEL (WRVU 18.5) (Right) IMPLANTATION OF BIOLOGIC IMPLANT FOR SOFT TISSUE REINFORCEMENT (WRVU 3.65) (Right) ? Trina is here for incision check, and drain assessment. She is with her today. Subjective: She states mild discomfort today. She is using oxycodone, alternating with advil and extra strength tylenol with minimal effect. She states that night is very uncomfortable for her and she requested 10 more oxycodone. She has been spacing her oxycodone out to 1 every 4-6hrs, alternating with the above. Tonya Griffith APRN met with her today and gave her a second script for 10 more oxycodone. Objective: Both breasts are soft and equal in size. Swelling: mild bilaterally Bruising: no bilaterally Tegaderm remains intact, incisions well approximated. Bilateral drains areabout 20ml serous fluid or less per day and does meet criteria for removal today. Left nipple has good projection, pink. Expanders in good position Assessment: No signs of delayed healing, erythema ,or fluid collection. Incisions CDI. Plan: We reviewed post op instructions, including activity limitations as outlined in our post op brochure. We discussed increase protein in the diet, signs of infection and correct phone numbers to call us for concerns. Antibiotics for one more day post drain removal. Keep tegaderm in place until next week,it will be removed at that visit. Okay to Shower. Pt will follow up next week with Tonya Griffith APRN for 1st expansion, and possible drain removal Trina expressed understanding of process of expansions, and post op instructions. documented in this encounter Plan of Treatment Upcoming Encounters Date Type Department Care Team (Late st Contact Info) Description 06/30/2024 4:30 PM EDT Office Visit Hematology [place] [address] Shilpi Gallegos MD [facility] DR HEMATOLOGY [place] [address] documented as of this encounter Visit Diagnoses Diagnosis Surgery follow-up Follow-up examination, following unspecified surgery documented in this encounter Care Teams Appeals Rn Relationship Specialty Start Date End Date Radha Acuna MD [address] [place] [address] [place] [address] PCP - General 08/07/11 documented as of this encounter
--- OUTSIDE RECORDS SUMMARY | 2024-04-07 16:40 | XMS_ITS | Encounter Summary ---
Author Organization [facility] [place] [address] Care Team Providers Care Aircraft Engine Cylinder Mechanic Name Role Phone Radha Acuna MD Primary Care Provider +1- [phone] Reason for Visit * Reason Comments Follow Up Surgery expansion, s/p lola b reast recon dos 03/15/17 Encounter Details Date Type Department Care Team (Late st Contact Info) Description 05/07/2017 10:00 AM EST Office [place] [address] Tonya Trevino [facility] [place] [address] Surgery follow-up Social History Tobacco Use Types [...] encounter Patient Instructions * Patient Instructions* Sonam Jensen RMA - 05/07/2017 10:00 AM EST You were given written and verbal preoperative instructions today. To prepare for your upcoming surgery, please review the Pre-Operative Instruction brochure that wasgiven to you. Remember to do the pre op wash, with Hibiclens soap, as instructed. You will need a tour bus driver/guide. Expect a call from the nurses from the Same Day Dept. the business day before the surgery to instruct you in the time to arrive as well as when to stop eating and drinking. Feel free to call our office @ [phone] if you have any questions or concerns. We monitor the phones from 8-5 Wednesday through Wednesday. Nasal carriage of Staphylococcus aureus including methicillin-resistant S. aureus (MRSA) is associated with an increased risk for postoperative staphylococcal infection. Studies have shown that eliminating this germ from your nose prior to surgery may reduce your risk of developing a surgical site infection. For that reason, your provider has recommended the following preventative measure: Directions for Nasal Mupirocin 2% (Bactroban) Beginning five (5) days before your surgery, applyointment to both nostrils twice daily: 1) Wash your hands thoroughly with soap and water. 2) Apply a dab (approximately the size of a large pea) of medication to the finger tip. 3) Place the dab of medication inside your nostril and gently massage until absorbed. 4) Repeat in the other nostril. Log Chart Date of Surgery: Mupirocin Start Date: AM: Day 1 Day 2 Day 3 Day 4 Day 5 PM: Day 1 Day 2 Day 3 Day 4 Day 5 documented in this encounter Progress Notes * Sonam Jensen RMA - 05/07/2017 10:00 AM EST Pre-Op Teaching for Surgery Surgery: Bilateral carpenter repair exchange Written and verbal pre-operative instructions were given and reviewed with patient. Patient was advised to discontinue use of NSAIDS and aspirin products 14 days prior to surgery unless otherwise advised by patient's PCP/Pathological Technician for cardiac symptoms, to perform the pre-op scrub, and coordinate ride home following surgery. Smoking status and medications were further reviewed to rule out/address current use of Nicotine, Coumadin, Plavix, Estrogen or Tamoxifen. Bactroban and instructions were given to patient. Patient was told to call the clinic for any questions or concerns prior to surgery. * Tonya Trevino APRN - 05/07/2017 10:00 AM EST Plastic Surgery Follow Up Note Reason for visit: F/U status post procedure Date of surgery: 03/15/17 Procedure(s): Bilateral breast reconstruction with tissue expanders 300ccArtoura High Profile saline breast expanders were placed bilaterally in submuscular/Allomax pockets and filled to 100 cc with sterile saline. Complications: None reported Chemotherapy: Completed one course in January. Starting Herceptin next week. Radiation: Not indicated. Anticipated exchange date: 4 weeks after last expansion. Preference for prior to radiation if needed. Symmetry surgery: n/a HPI: Pt reports some redness of her breasts. She is wondering if she is eligible for another expansion given the current tightness and redness of her breast. She also is experiencing some tenderness below her right breast over her ribs. She has questions regarding whether her breasts can come closer together during her exchange surgery. Examination: Patient is alert, conversant, comfortable, ambulating Flaps well perfused. NACs well perfused. Air Cargo Specialist Supervisor in good position, maintaining fill volume. Incisions intact. No collection, no erythema, no evidence of cellulitis. Procedure: Today, under sterile conditions, 20 ml of saline was instilled bilaterally to tissue expanders, for a total total of 275 ml bilaterally. Impression: Trina Frances is a 36 y.o. female who was seen today for follow-up after the above procedure. Please see the operative note for details. Expansion well tolerated. I suspect the redness and patchiness of her skin may be a result of dry skin. She will monitor and contact our office with any concerns. Plan: Surgical scheduling for carpenter repair to implant exchange Surgeon: Frantz Zurita Duration: 90 mins Timeframe: 4 weeks after last expansion (05/07/17) Coordinated with: None Procedure: Air Cargo Specialist Supervisor to implant exchange CPT: 15304 Surgical site: Breasts Side: Bilateral Anesthesia: General Follow up: 7-10 Days PAT: Yes No Implants needed: Yes [place] [employer] Breast Implants Smooth Round Gel Moderate Plus Profile Sizing Chart Catalog # Volume Diameter 350-2501 BC 250 cc 11.3 cm 350-2751 BC 275 cc 11.7 cm 350-3001 BC 300 cc 12.0 cm 350-3251 BC 325 cc 12.3 cm 350-3501 BC 350 cc 12.5 cm Round Moderate Plus Profile (Main OR does not stock 175-475cc) Order# Vol. Diam. Proj. Max. Fill [id number] 250cc 10.8cm 4.0cm 300cc [id number] 275cc 11.0cm 4.1cm 330cc [id number] 300cc 11.5cm 4.3cm 360cc [id number] 325cc 11.9cm 4.4cm 390cc ITracy, am acting as scribe for Tonya Trevino APRN. All work documented was performed by Tonya Trevino APRN ???I performed the above scribed service and agree with the accuracy of the note?? TONYA TREVINO APRN documented in this encounter Plan of Treatment Upcoming Encounters Date Type Department Care Team (Late st Contact Info) Description 06/30/2024 4:30 PM EDT Office Visit H[place]ology [place] [address] Shilpi Gallegos MD [facility] [address] [place] [address] documented as of this encounter Visit Diagnoses Diagnosis Surgery follow-up Follow-up examination, following unspecified surgery documented in this encounter Care Teams Aircraft Engine Cylinder Mechanic Relationship Specialty Start Date End Date Radha Acuna MD [address] [place] [address] [place] [address] PCP - General 08/07/11 documented as of this encounter
--- OUTSIDE RECORDS SUMMARY | 2024-04-07 16:40 | XMS_ITS | Encounter Summary ---
Author Organization [facility] [place] [address] Care Team Providers Care Air Tube Releaser Name Role Phone Radha Acuna MD Primary Care Provider +1- [phone] Encounter Details Date Type Department Care Team (Late st Contact Info) Description 05/03/2017 External [place] [address] Provider, Scanning Social History Tobacco Use Types Packs/Day Years [...] EDT Office Visit Hematology [place] [address] Shilpi Gallegos MD [facility] DR [place] [address] documented as of this encounter Procedures Procedure Name Priority Date/Time Associated Diagnosis Comments SURGICAL PATHOLOGY SCAN Routine 05/03/2017 documented in this encounter Results * Scan Doc: Surgical Pathology (05/03/2017) Ruby Daniel MD MEDIA MGR SCAN E XT ORDR/RSLT documented in this encounter Visit Diagnoses Not on filedocumented in this encounter Care Teams Air Tube Releaser Relationship Specialty Start Date End Date Radha Acuna MD [address] [place] [address] [place] [address] PCP - General 08/07/11 documented as of this encounter
--- OUTSIDE RECORDS SUMMARY | 2024-04-07 16:40 | XMS_ITS | Encounter Summary ---
Author Organization [facility] Address [facility] [place] [address] Care Team Providers Care Occupational Therapy Manager Name Role Phone Radha Acuna MD Primary Care Provider [phone]- [phone] Reason for Visit * Reason Comments Chemotherapy * Treatment/Therapy Plan Authorization (Routine) - Closed Specialty Diagnoses / Procedures Referred By Contgabriela t Referred To Contact Diagnoses Invasive ductal carcinoma of right breast Procedures TC TRASTUZUMAB, 10MG, INJECTION (HERCEPTIN) TC CHEMO ADMIN, IV INFUSION, UP TO 1HR, SINGLE/INITIAL DRUG TC CHEMO ADMIN, IV INFUSION, EA ADDL HR, SINGLE/INITIAL DRUG Shilpi Gallegos MD [facility] DR HEMATOLOGY [place] [address] [facility] [address] [place] [address] Referral ID Status Reason Start Date Expiration Date Visits Re quested Visits Authorized [id number] Closed 03/31/2017 02/14/2019 17 17 Encounter Details Date Type Department Care Team (Latest Contact Info) Description 05/19/2017 8:30 AM EST - 05/19/2017 11:59 PM EST Hospital Encounter Hematology [place] [address] Invasive ductal carcinoma of right [...] Sign Reading Time Taken Comments Blood Pressure 109/71 05/19/2017 8:35 AM EST Pulse 62 05/19/2017 8:35 AM EST Temperature 36.7 ??C (98.1 ??F) 05/19/2017 8:35 AM ES T Respiratory Rate 16 05/19/2017 8:35 AM EST Oxygen Saturation 100% 05/19/2017 8:35 AM EST Inhaled Oxygen Concentration - - Weight 52.9 kg (116 lb 9.6 oz) 05/19/2017 8:35 A M EST Height 155.5 cm (5' 1.22) 05/19/2017 8:35 AM ES T Body Mass Index 21.87 05/19/2017 8:35 AM EST documented in this encounter Medications [...] Take 1 tablet by mouth daily for 30 days. 30 tablet 11 04/28/2017 05/28/2017 polyethylene glycol (MIRALAX) 17 gram Powder in [...] Progress Notes * Susan Prince RN - 05/19/2017 6:09 AM EST Patient Name: Trina Frances Patient Age: 36 y.o. Birthdate: 1980 Admit date: (Not on file) Attending Physician: No att. providers found Start time: 0800 End time: 0940 Trina Frances, 36 y.o. female with diagnosis of breast cancer is here for chemotherapy infusion ofHerceptin. PROTOCOL: no CYCLE: 1 DAY: 22 S: I was a little tired after my last treatment, just for the rest of that day, otherwise I have felt fine. O: Chemotherapy orders independently verified for correct [...] EDT Office Visit Hematology [place] [address] Shilpi Gallegos MD [facility] [address] [place] [address] documented as of this encounter Visit Diagnoses Diagnosis Invasive ductal carcinoma of right breast documented in this encounter Administered Medications Inactive Administered Medications - up to 3 most recent administrations Medication Order MAR Action Action Date Dose Rate Site heparin, porcine 100 unit/mL flush 500 Units 500 Units, Intravenous, ONCE PRN, Starting on Wed05/19/17 at 0837, Until Kaycee 05/20/17 at 0435, Line Care, Refer to Intravenous (IV) Procedure: Accessing Implanted Vascular Access Devices (594) procedure and/or Intravenous (IV) Job Aid: Adult Flushing & Catheter Care (2196) job aid for additional information regarding guidelines and administration., Routine Given 05/19/2017 9:35 AM EST 500 Units sodium chloride 0.9 % flush 5-20 mL 5-20 mL, Intravenous, EVERY 1 MIN PRN, Starting on Wed05/19/17 at 0837, Until Kaycee 05/20/17 at 0435, Line Care, Flush pertains to all indwelling lines. Flush per protocol found in the job aid using the link provided on this medication record. Refer to Intravenous (IV) Job Aid: Adult Flushing & Catheter Care (9534) job aid for additional information regarding guidelines and administration., Routine Given 05/19/2017 9:35 AM EST 20 mLs TRASTuzumab (HERCEPTIN) 300 mg in sodium chloride 0.9% 264.3 mL infusion 300 mg, Intravenous, ONCE, 1 dose, On Wed05/19/17 at 0945, Administer over 30 Minutes, Dose Ordered = 310 mg (6 mg/kg). Pharmacist rounded dose per procedure. New Bag 05/19/2017 9:00 AM EST 300 mg 528.6 mL/hr documented in this encounter Care Teams Occupational Therapy Manager Relationship Specialty Start Date End Date Radha Acuna MD [address] [place] [address] [place] [address] PCP - General 08/07/11 documented as of this encounter
--- OUTSIDE RECORDS SUMMARY | 2024-04-07 16:40 | XMS_ITS | Encounter Summary ---
Author Organization [facility] Address [facility] [place] [address] Care Team Providers Care Fiber Drier Operator Name Role Phone Radha Acuna MD Primary Care Provider [phone]- [phone] Encounter Details Date Type Department Care Team (Late st Contact Info) Description 05/26/2017 Notes [place] [address] Destiney Diggs MSW Social History Tobacco Use [...] Progress Notes * Destiney Diggs MSW - 05/26/2017 1:53 PM EST Pt was approved for assistance from the [employer]. P- [facility] will continue to provide support and resources to pt. documented in this encounter Plan of Treatment Upcoming Encounters Date Type Department Care Team (Late st Contact Info) Description 06/30/2024 4:30 PM EDT Office Visit Hematology [place] [address] Shilpi Gallegos MD [facility] [address] [place] [address] documented as of this encounter Visit Diagnoses Not on filedocumented in this encounter Care Teams Fiber Drier Operator Relationship Specialty Start Date End Date Radha Acuna MD [address] [place] [address] [place] [address] PCP - General 08/07/11 documented as of this encounter
--- OUTSIDE RECORDS SUMMARY | 2024-04-07 16:40 | XMS_ITS | Encounter Summary ---
Author Organization [facility] [place] [address] Care Team Providers Care Wood Heel Flap Trimmer Name Role Phone Radha Acuna MD Primary Care Provider [phone] Reason for Visit * Auth/Cert Specialty Diagnoses / Procedures Referred By Clara t Referred To Contact Diagnoses Breast cancer, right RIGHT BREAST CANCER Procedures PRO MASTECTOMY, SIMPLE, COMPLETE PRO BX/REMV, LYMPH NODE, DEEP AXILL PRO INTRAOP SENTINEL LYMPH ID W/DYE INJECTION PRO BREAST RECONSTRUC W TISS EXPANDR PRO BIOLOGIC IMPLANT FOR SOFT TISSUE REINFORCEMENT MASTECTOMY, SIMPLE, COMPLETE-MICHAEL (WRVU 15.85) BIOPSY OR EXCISION OF LYMPH NODE(S), OPEN, DEEP AXILLARY NODE(S) (WRVU 6.43) INTRAOPERATIVE ID (MAPPING) SENTINEL LYMPH NODE,INCLUDES INJECTION (WRVU 2.5) MODIFIER SENTINEL NODE EXCISION MODIFIER , NIPPLE SPARING Referral ID Status Reason Start Date Expiration Date Visits Re quested Visits Authorized [id number] 1 1 Encounter Details Date Type Department Care Team (Late st Contact Info) Description 03/15/2017 5:46 AM EST - 03/16/2017 1:01 PM EST Hospital Encounter [place] [id number] Ruby Carrera MD Discharge Disposition: Home Social History Tobacco Use [...] Sign Reading Time Taken Comments Blood Pressure 100/66 03/16/2017 3:38 AM EST Pulse 64 03/16/2017 3:38 AM EST Temperature 37 ??C (98.6 ??F) 03/16/2017 3:38 AM EST Respiratory Rate 16 03/16/2017 3:38 AM EST Oxygen Saturation 97% 03/16/2017 3:38 AM EST Inhaled Oxygen Concentration - - Weight 51.7 kg (114 lb) 03/15/2017 6:08 AM EST Height - - Body Mass Index 21.3 02/02/2017 9:04 AM EDT documented in this encounter Discharge Summaries * Niki Bass PA - 03/16/2017 11:07 AM EST PLASTIC SURGERY DISCHARGE SUMMARY Patient Name: Trina Frances Patient Age, : 36 y.o. 1980 Language, race, ethnicity: Citizen Of [place], White, Not nor Date of Admission: 03/15/2017 Date of Discharge: 03/16/2017 Attending Physician: Ruby Carrera MD Discharge Physician: Frantz Martínez MD Discharge Diagnoses (Hospital Problems) and Secondary Diagnoses (Chronic Problems): Active Hospital Problems Diagnosis ??? Breast CA Resolved Hospital Problems Diagnosis Date Resolved No resolved problems to display. Active Non-Hospital Problems Diagnosis ??? Medication management ??? Drug-induced hypokalemia ??? Change in bowel habits ??? Thrombocytopenia due to drugs ??? Drug-induced anemia ??? Invasive ductal carcinoma of right breast ??? IgA deficiency Operations/Major Procedures: Procedure(s): MASTECTOMY, SIMPLE, COMPLETE-MICHAEL (WRVU 15.85) BIOPSY OR EXCISION OF LYMPH NODE(S), OPEN, DEEP AXILLARY NODE(S) (WRVU 6.43) INTRAOPERATIVE ID (MAPPING) SENTINEL LYMPH NODE,INCLUDES INJECTION (WRVU 2.5) MODIFIER SENTINEL NODE EXCISION MODIFIER , NIPPLE SPARING BREAST RECONSTRUCTION, IMMEDIATE OR DELAYED, WITH TISSUE METAL PATTERN MAKER INCLUDING SUBSEQUENT EXPANSION-MICHAEL (WRVU 18.5) IMPLANTATION OF BIOLOGIC IMPLANT FOR SOFT TISSUE REINFORCEMENT (WRVU 3.65) 03/15/2017 History of Presentation: 36yo F pt with history of right breast CA. Per note by Dr Martínez 02/04/2017She finished chemotherapy earlier this week. She has questions regarding her upcoming surgery and is planned for bilateral mastectomies. She will likely not require radiation. She wears an A cup braand desires to be a B after surgery. She reports she does not desire textured implants. On 03/15/2017 pt underwent right breast areola sparing mastectomy, right axillary sentinel lymph node excision and left nipple sparing mastectomy by Dr Carrera and reconstruction by Dr Martínez with bilateral tissue expanders and acellular dermal matrix. History obtained through patient interview, review of relevant records, and/or discussion with referring provider. Hospital Course: Patient was admitted electively to [facility] via the same day surgery program and underwent the above procedure. The patient tolerated the above procedure well and was admitted post-operatively for routine post- operative care. Her hospital course was uncomplicated. Pt remained afebrile,with stable vital signs throughout her hospital stay. POD0: pain was not well controlled on scheduled tylenol, oxycodone 5-10mg, and IV dilaudid. Pt reports getting itchy on dilaudid. Motrin added. Today, POD#1 she has met all criteria for discharge home: her pain is well controlled with medications by mouth, she is tolerating a regular diet, is voiding spontaneously without difficulties, and is up and ambulating without complications. Pt has been deemed safe for discharge to home. Past Medical History Past Medical History: Diagnosis Date ??? Environmental allergies ??? IgA deficiency ??? Immune deficiency disorder ??? Invasive ductal carcinoma of right breast 09/22/2016 ??? Multiple food allergies ??? Placenta previa ??? Vitiligo Past Surgical History Past Surgical History: Procedure Laterality Date ??? APPENDECTOMY ??? SECTION ??? NASAL SINUS SURGERY ??? TONSILLECTOMY Procedures: 03/15/2017 Surgeon(s) and Role: Panel 1: * Ruby Carrera MD - Primary * Tye Goel MD Panel 2: * Frantz Martínez MD - Primary * Niki Bass PA - Physician Carburetor Specialist: Procedure(s): MASTECTOMY, SIMPLE, COMPLETE-MICHAEL (WRVU 15.85) BIOPSY OR EXCISION OF LYMPH NODE(S), OPEN, DEEP AXILLARY NODE(S) (WRVU 6.43) INTRAOPERATIVE ID (MAPPING) SENTINEL LYMPH NODE,INCLUDES INJECTION (WRVU 2.5) MODIFIER SENTINEL NODE EXCISION MODIFIER , NIPPLE SPARING BREAST RECONSTRUCTION, IMMEDIATE OR DELAYED, WITH TISSUE METAL PATTERN MAKER INCLUDING SUBSEQUENT EXPANSION-MICHAEL (WRVU 18.5) IMPLANTATION OF BIOLOGIC IMPLANT FOR SOFT TISSUE REINFORCEMENT (WRVU 3.65) Vital Signs at Discharge: Wt Readings from Last 1 Encounters: 03/15/17 51.7 kg (114 lb) Ht Readings from Last 1 Encounters: 02/02/17 155.8 cm (5' 1.34) Body mass index is 21.3 kg/(m^2). Last value Range last 24 hrs Temperature Temp: 37 ??C (98.6 ??F) Temp: [36.4 ??C (97.5 ??F)-37.5 ??C (99.5 ??F)] Heart Rate Heart Rate: 64 Heart Rate: [64-76] Blood Pressure BP: 100/66 BP: (100-130)/(63-80) Respiratory Rate Resp: 16 Resp: [11-18] SpO2 SpO2: 97 % SpO2: [90 %-100 %] Physical Exam on d/c: Intake/Output Summary (Last 24 hours) at 03/16/17 1107 Last data filed at 03/16/17 0948 Gross per 24 hour Intake 3969.66 ml Output 3970 ml Net -0.34 ml General: Appears in no acute distress, pleasant, cooperative, resting comfortably in bed HEENT: atraumatic, normocephalic, sclerae anicteric, supple neck, trachea midline, no noted facial asymmetries/echymosis/edema Respiratory: Breathing is non-labored, breath sounds are equal and present bilaterally, no wheezing/rhonchi/rales, on room air Cardiovascular: No peripheral edema, RRR Breast: postoperative bra intact, postoperative tegaderm dressings on over bilat breasts, breasts are pink/warm with expected postoperative ecchymosis L worse than R, incisions c/d/i, no evidence of hematoma/seroma, Bilateral RUSS drains intact with good suction and serosanguinous drainage Abdomen: non distended, non tender Extremities: warm/dry and pink, motor and sensation intact on gross exam Mental Status: alert and oriented, normal mood/behavior, speech, motor activity, thought process Functional and Cognitive Status: Ambulating and cognitively intact. Important Studies and Lab Data: Labs: Last wbc, hgb, hct plt Recent Labs 03/15/17 0650 WBC 3.8* HGB 10.8* HCT 31.3* Imaging Studies: none Pending Studies and Lab Data: No current labs Medications: Your Medications Notice Some of the medications listed here do not show instructions, such as how often to take the medication. Ask your doctor or nurse how to use these medications. Specifically ask about this and similar medications: cetirizine (ZYRTEC) 10 mg tablet New Medications Dose Details acetaminophen 500 mg Tab Commonly known as: TYLENOL Take 2 tablets by mouth every 8 hours. 1000 mg Quantity: 30 tablet Refills: 0 cephalexin 500 mg Tab Commonly known as: KEFLEX Take 1 tablet by mouth 4 times daily for 10 days. To take while drains are in 500 mg Quantity: 40 tablet Refills: 1 oxyCODONE 5 mg Tab Commonly known as: ROXICODONE Take 1 tablet by mouth every 4 hours as needed for Pain. Can take 1-2 tablets for pain that is not controlled on tylenol and NSAIDs 5 mg Quantity: 24 tablet Refills: 0 Continued medications, unchanged Dose Details docusate sodium 100 mg Cap Commonly known as: COLACE Take 100 mg by mouth daily. 100 mg Refills: 0 lidocaine-prilocaine Crea Commonly known as: EMLA Apply small amount of cream using q-tip on mediport site approx 30-60 minutes before access. Cover site with saran wrap. Quantity: 30 g Refills: 3 multivitamin Tab Commonly known as: THERAGRAN Take 1 tablet by mouth daily. 1 tablet Refills: 0 polyethylene glycol 17 gram Pwpk Commonly known as: MIRALAX Take 17 g by mouth daily as needed. 17 g Refills: 0 potassium chloride 20 mEq Tbsr Take 1 tablet by mouth daily. 20 mEq Quantity: 30 tablet Refills: 3 PROBIOTIC ORAL Take by mouth daily. Refills: 0 ZyrTEC 10 mg Tab ?nk?wn!?? Generic drug: cetirizine Refills: 0 STOPPED Medications fluconazole 100 mg Tab Commonly known as: DIFLUCAN Allergies: Allergies Allergen Reactions ??? Aspirin Hives ??? Hydrocodone-Acetaminophen Hives ??? Tegaderm [Transparent Dressings] Dermatitis ??? Tioconazole Immunizations Given this Hospitalization: Immunization History Administered Date(s) Administered ??? Influenza PF, Split 01/18/2012, 01/21/2013, 02/11/2016 ??? Influenza Vaccine w/Preservative, Split 01/21/2014 ??? Influenza Vaccine, Whole 08/07/2011 Smoking Status at Discharge: History Smoking Status ??? Never Smoker Smokeless Tobacco ??? Never Used Discharge to: Home Discharge Instructions: Patient Instructions Implant Based Reconstruction Post-op Instructions The healing process after breast reconstruction surgery varies with each person. You should expect to feel tired for the first 2-3 weeks due to anesthesia and the healing process. Pain ??? With any surgery there is some discomfort or pain. We will give you a prescription for a pain pill to take at home. You may use Tylenol as needed for pain. We also recommend taking an anti-inflammatory (Ibuprofen , may start 48hrs after surgery). Take pain relievers as prescribed and only as needed. ??? Take an ksmi-hsr-jgfipmr stool softener, such as Colace while taking your narcotic pain reliever to maintain bowel regularity. Drink plenty of water. ??? DO NOT use ice or heat on your incisions. Your ability to feel hot or cold at the incision willbe abnormal for several months. ??? You will have nerve pain after your surgery because the nerve endings have been disturbed. Nerve pain may feel like a burning sensation, itching, or a shooting, electric shock pain. This is normal and will get better as you heal. Swelling ??? Moderate bruising and swelling of the breast(s) is normal for the first few weeks after surgery. ??? If you had nipple reconstruction, expect the nipple to look too large at first. This is done onpurpose as the nipple will shrink with time. Drains -The drains are made to collect fluid to reduce the risk of an infection and or the formation of a seroma or hematoma. The amount of fluid should decrease daily and turn light pink or light yellow. The drains will be removed by the provider when the output is < 30mL/day for two days in a row foreach drain. Please keep a log of the output from each drain as you empty the drains and bring the log to your follow up visit with your provider. -At the end of each day milk the tubing and pour out the contents. This is done by sliding 2 fingers along the tubing toward the bulb. Hold the tubing in place with your thumb and index finger from your left hand and pinch the tubing with your thumb and index finger from your right hand and slide the fluid toward the bulb. This prevents the tube from malfunctioning and clogging. When you empty the bulb, unplug the stopper and empty the contents into a cup and record the amount in your log. After that, you can pour the fluid into the toilet. -After emptying the fluid, squeeze the bulb and place the stopper into the bulb. This creates suction to draw out the fluid from the pouch. When the bulb is compressed, it resembles a donut shape. The bulb will expand as fluid drains. Keep the bulb secure by fastening the bulb to your garment with a safety pin. Fasten the bulb below the place where tubing exits the body. There is a tab on the bulb to attach the safety pin made especially for that. -Remember to wash your hands for approximately 30sec before and after handling the drain system anddry your hands with a clean towel to prevent infection each time. -The nurses will show you how to care for the drains ??? Take your antibiotics (Keflex) while drains are in. If you run out of antibiotics while your drains are still in, please call our clinic for a refill. ??? Ensure that antimicrobial disc is in place around drain site at all times. The plastic surgery nurses will remove it at the time of drain removal. Showering ??? Do NOT shower with drains in place. Sponge bathe. ??? Do not take a bath or use a hot tub until your skin is completely healed, approximately 3 weeks. Incisions ??? Expect to have some red, pink, yellow/clear drainage from your incisions for the first 1-[address] dressings at the incisions while you have drainage. ??? Expect redness at the incision line for several weeks as your absorbable sutures are dissolving. If the redness begins to spread away from the incision, you should call the clinic. ??? Spitting sutures: occasionally an area of redness and tenderness develops where a dissolving stitch becomes irritated and pushes to the surface. This stitch is clear or white and looks like fishing line. If this occurs, it is not an emergency. You may clip the stitch or call the clinic for an appointment with the nurse. ??? Clear tegaderm dressings over breasts: you may have a clear dressing over the entire breast, this is to ensure the tissue side laster tack does not move allowing for a symmetric pocket for the future implant to be created. Please do not get this dressing wet and do not remove it or change it. The plastic surgery nurses will remove it when appropriate. ??? If you had nipple reconstruction, apply Aquaphor ointment and dressings once a day for 5-7 daysuntil healed. Bra ??? Do not wear a bra until your 1st clinic visit after surgery. ??? Do not wear an under-wire bra for 3 months as your skin may still be numb from surgery. Activity ???If it hurts, don???t do it? For the first 1-2 weeks, when pushing yourself up to get out of bed, avoid using the arm on thereconstructed side. ??? Do not drive for 1-2 weeks while you are on narcotic pain reliever or if driving causes you pain. ??? Do not engage in sexual intercourse for the first 1-2 weeks. ??? Do not sleep on your side or stomach for 2 weeks. ??? Do not lift anything that weighs more than 5 pounds for 6 weeks. ??? No strenuous exercise (tennis, aerobics, jogging) for 6 weeks. ??? Walking is encouraged. At least get up and walk around the house several times per day. Feel free to walk as much as you want. Walking improves circulation, respiratory function and healing. ??? Most women return to work in 4-6 weeks. ??? Traveling is fine but you may wish to say close to your doctor in the first few weeks in case there are any complications. Call our office if: ??? Your incision opens up ??? One breast is hard and is much larger than the other ??? You have signs of infection o A temperature over 100.4 F. o Redness of the incision lines that is beginning to spread away from the incision. o Yellow pus-like or foul smelling drainage from the incision or drain site. o Increase pain/discomfort that is not relieved by your pain medication. To make an appointment or for questions about scheduling, please contact our administrative officesat [phone] For clinical questions, please call our nurses at [phone] Both offices are open Wednesday thru Wednesday 8a - 5p. With emergencies after hours, call the hospital welding machine operator submerged arc at [phone] and ask for the Plastic Surgery Resident balance wheel motion inspector. Narcotics: You may be given a prescription for a narcotic medication immediately following your surgery. Narcotics are prescribed for short-term (1-3 days) use to help treat your pain. Narcotics do not reduce inflammation and it is inflammation that is usually a major cause of pain after surgery. Narcotics have many side effects such as constipation, lightheadedness, dizziness, sedation, confusion, nausea and vomiting. Driving and the use of alcohol are not recommended while you are using narcotic pain medications. Non-steroidal anti-inflammatories (NSAIDS) such as aspirin, Aleve and ibuprofen (Advil, Motrin) aremedications that reduce pain and inflammation. NSAIDS may be used 48 hours after surgery with your narcotic to help alleviate the pain caused by inflammation. To reduce your chance of side effects, it is recommended that you save your narcotic medication fornighttime use and switch to NSAIDS or Acetaminophen (Tylenol) during the day. Alternative means of pain relief such as rest and relaxation, positioning, as well as decreasing stimulants such as coffee, tea, soft drinks, and nicotine may also help to alleviate pain. If you continue to experience significant pain 4-5 days after your procedure, it may be necessary to be re-evaluated by your physician. PRESCRIPTION RENEWALS: Renewal requests should be called in to our prescription line at [phone]. Narcotic renewals may be requested from 8am-4pm Wednesday through Wednesday. Due to patient safety, narcotic renewals will not be honored after hours or on weekends. It is best to make your request 2-3 days before you run out of your medication as it will take at least 24 hours for physician approval and nurse follow-up. Note that certain prescriptions, such as Percocet, Oxycodone, Vicodin, & Hydrocodone can not becalled in to a pharmacy and must be picked up or mailed to you. If mailed to you, expect 2-5 business days prior to arrival. Post-Op Plan: - Follow up with [facility] [employer] [facility]/nurse in 7-10 days - Wound Check - Dressings removal if needed Future Appointments Date Time Provider Department Center 03/31/2017 9:30 AM Shilpi Gallegos MD [facility] 03/31/2017 10:00 AM Elizabeth Rosales [facility] 03/31/2017 11:15 AM Ruby Carrera MD [facility] General Instructions None Future Appointments and Orders Future Appointments Provider Department Dept Phone 03/24/2017 9:00 AM NURSE, PLASTIC SURGERY [facility] [place] [phone] 03/24/2017 10:00 AM Elizabeth Rosales PT [facility] [place] [phone] 03/31/2017 9:30 AM Shilpi Gallegos MD [facility] [place] [phone] 03/31/2017 10:00 AM Elizabeth Rosales PT [facility] [place] [phone] 03/31/2017 11:15 AM Ruby Carrear MD [facility] [place] [phone] Discharge Medications: Your Medications Notice Some of the medications listed here do not show instructions, such as how often to take the medication. Ask your doctor or nurse how to use these medications. Specifically ask about this and similar medications: cetirizine (ZYRTEC) 10 mg tablet New Medications Dose Details acetaminophen 500 mg Tab Commonly known as: TYLENOL Take 2 tablets by mouth every 8 hours. 1000 mg Quantity: 30 tablet Refills: 0 cephalexin 500 mg Tab Commonly known as: KEFLEX Take 1 tablet by mouth 4 times daily for 10 days. To take while drains are in 500 mg Quantity: 40 tablet Refills: 1 oxyCODONE 5 mg Tab Commonly known as: ROXICODONE Take 1 tablet by mouth every 4 hours as needed for Pain. Can take 1-2 tablets for pain that is not controlled on tylenol and NSAIDs 5 mg Quantity: 24 tablet Refills: 0 Continued medications, unchanged Dose Details docusate sodium 100 mg Cap Commonly known as: COLACE Take 100 mg by mouth daily. 100 mg Refills: 0 lidocaine-prilocaine Crea Commonly known as: EMLA Apply small amount of cream using q-tip on mediport site approx 30-60 minutes before access. Cover site with saran wrap. Quantity: 30 g Refills: 3 multivitamin Tab Commonly known as: THERAGRAN Take 1 tablet by mouth daily. 1 tablet Refills: 0 polyethylene glycol 17 gram Pwpk Commonly known as: MIRALAX Take 17 g by mouth daily as needed. 17 g Refills: 0 potassium chloride 20 mEq Tbsr Take 1 tablet by mouth daily. 20 mEq Quantity: 30 tablet Refills: 3 PROBIOTIC ORAL Take by mouth daily. Refills: 0 ZyrTEC 10 mg Tab ?nk?wn!?? Generic drug: cetirizine Refills: 0 STOPPED Medications fluconazole 100 mg Tab Commonly known as: DIFLUCAN Follow-up plan: Pt will follow up in 7 days coordinated with physical therapy for wound check, drain removal per protocol (emailed clinic to schedule) Pt will continue on Keflex while drains are in Other/Consults: Code status: full code Future Appointments and Orders Future Appointments Provider Department Dept Phone 03/24/2017 9:00 AM NURSE, PLASTIC SURGERY [facility] [place] [phone] 03/24/2017 10:00 AM Elizabeth Rosales, PT [facility] [place] [phone] 03/31/2017 9:30 AM Shilpi Gallegos MD [facility] [place] [phone] 03/31/2017 10:00 AM Elizabeth Rosales PT [facility] [place] [phone] 03/31/2017 11:15 AM Ruby Carrera MD [facility] [place] [phone] Primary Care Provider: Radha Aucna MD [phone] VNA: No discharge procedures on file. General Instructions None [facility] care [facility] by [facility]. If you haveany questions or concerns, please feel free to contact us. Provider Contact Information: Plastic Surgery Clinic: [facility] (after business hours): documented in this encounter Discharge Instructions * Patient Instructions* Niki Bass PA - 03/16/2017 8:02 AM EST Implant Based Reconstruction Post-op Instructions The healing process after breast reconstruction surgery varies with each person. You should expect to feel tired for the first 2-3 weeks due to anesthesia and the healing process. Pain ??? With any surgery there is some discomfort or pain. We will give you a prescription for a pain pill to take at home. You may use Tylenol as needed for pain. We also recommend taking an anti-inflammatory (Ibuprofen , may start 48hrs after surgery). Take pain relievers as prescribed and only as needed. ??? Take an icbz-yhc-jdctakm stool softener, such as Colace while taking your narcotic pain reliever to maintain bowel regularity. Drink plenty of water. ??? DO NOT use ice or heat on your incisions. Your ability to feel hot or cold at the incision willbe abnormal for several months. ??? You will have nerve pain after your surgery because the nerve endings have been disturbed. Nerve pain may feel like a burning sensation, itching, or a shooting, electric shock pain. This is normal and will get better as you heal. Swelling ??? Moderate bruising and swelling of the breast(s) is normal for the first few weeks after surgery. ??? If you had nipple reconstruction, expect the nipple to look too large at first. This is done onpurpose as the nipple will shrink with time. Drains -The drains are made to collect fluid to reduce the risk of an infection and or the formation of a seroma or hematoma. The amount of fluid should decrease daily and turn light pink or light yellow. The drains will be removed by the provider when the output is < 30mL/day for two days in a row foreach drain. Please keep a log of the output from each drain as you empty the drains and bring the log to your follow up visit with your provider. -At the end of each day milk the tubing and pour out the contents. This is done by sliding 2 fingers along the tubing toward the bulb. Hold the tubing in place with your thumb and index finger from your left hand and pinch the tubing with your thumb and index finger from your right hand and slide the fluid toward the bulb. This prevents the tube from malfunctioning and clogging. When you empty the bulb, unplug the stopper and empty the contents into a cup and record the amount in your log. After that, you can pour the fluid into the toilet. -After emptying the fluid, squeeze the bulb and place the stopper into the bulb. This creates suction to draw out the fluid from the pouch. When the bulb is compressed, it resembles a donut shape. The bulb will expand as fluid drains. Keep the bulb secure by fastening the bulb to your garment with a safety pin. Fasten the bulb below the place where tubing exits the body. There is a tab on the bulb to attach the safety pin made especially for that. -Remember to wash your hands for approximately 30sec before and after handling the drain system anddry your hands with a clean towel to prevent infection each time. -The nurses will show you how to care for the drains ??? Take your antibiotics (Keflex) while drains are in. If you run out of antibiotics while your drains are still in, please call our clinic for a refill. ??? Ensure that antimicrobial disc is in place around drain site at all times. The plastic surgery nurses will remove it at the time of drain removal. Showering ??? Do NOT shower with drains in place. Sponge bathe. ??? Do not take a bath or use a hot tub until your skin is completely healed, approximately 3 weeks. Incisions ??? Expect to have some red, pink, yellow/clear drainage from your incisions for the first 1-[address] dressings at the incisions while you have drainage. ??? Expect redness at the incision line for several weeks as your absorbable sutures are dissolving. If the redness begins to spread away from the incision, you should call the clinic. ??? Spitting sutures: occasionally an area of redness and tenderness develops where a dissolving stitch becomes irritated and pushes to the surface. This stitch is clear or white and looks like fishing line. If this occurs, it is not an emergency. You may clip the stitch or call the clinic for an appointment with the nurse. ??? Clear tegaderm dressings over breasts: you may have a clear dressing over the entire breast, this is to ensure the tissue side laster tack does not move allowing for a symmetric pocket for the future implant to be created. Please do not get this dressing wet and do not remove it or change it. The plastic surgery nurses will remove it when appropriate. ??? If you had nipple reconstruction, apply Aquaphor ointment and dressings once a day for 5-7 daysuntil healed. Bra ??? Do not wear a bra until your 1st clinic visit after surgery. ??? Do not wear an under-wire bra for 3 months as your skin may still be numb from surgery. Activity ???If it hurts, don???t do it? For the first 1-2 weeks, when pushing yourself up to get out of bed, avoid using the arm on thereconstructed side. ??? Do not drive for 1-2 weeks while you are on narcotic pain reliever or if driving causes you pain. ??? Do not engage in sexual intercourse for the first 1-2 weeks. ??? Do not sleep on your side or stomach for 2 weeks. ??? Do not lift anything that weighs more than 5 pounds for 6 weeks. ??? No strenuous exercise (tennis, aerobics, jogging) for 6 weeks. ??? Walking is encouraged. At least get up and walk around the house several times per day. Feel free to walk as much as you want. Walking improves circulation, respiratory function and healing. ??? Most women return to work in 4-6 weeks. ??? Traveling is fine but you may wish to say close to your doctor in the first few weeks in case there are any complications. Call our office if: ??? Your incision opens up ??? One breast is hard and is much larger than the other ??? You have signs of infection o A temperature over 100.4 F. o Redness of the incision lines that is beginning to spread away from the incision. o Yellow pus-like or foul smelling drainage from the incision or drain site. o Increase pain/discomfort that is not relieved by your pain medication. To make an appointment or for questions about scheduling, please contact our administrative officesat [phone] For clinical questions, please call our nurses at [phone] Both offices are open Wednesday thru Wednesday 8a - 5p. With emergencies after hours, call the hospital welding machine operator submerged arc at [phone] and ask for the Plastic Surgery Resident balance wheel motion inspector. Narcotics: You may be given a prescription for a narcotic medication immediately following your surgery. Narcotics are prescribed for short-term (1-3 days) use to help treat your pain. Narcotics do not reduce inflammation and it is inflammation that is usually a major cause of pain after surgery. Narcotics have many side effects such as constipation, lightheadedness, dizziness, sedation, confusion, nausea and vomiting. Driving and the use of alcohol are not recommended while you are using narcotic pain medications. Non-steroidal anti-inflammatories (NSAIDS) such as aspirin, Aleve and ibuprofen (Advil, Motrin) aremedications that reduce pain and inflammation. NSAIDS may be used 48 hours after surgery with your narcotic to help alleviate the pain caused by inflammation. To reduce your chance of side effects, it is recommended that you save your narcotic medication fornighttime use and switch to NSAIDS or Acetaminophen (Tylenol) during the day. Alternative means of pain relief such as rest and relaxation, positioning, as well as decreasing stimulants such as coffee, tea, soft drinks, and nicotine may also help to alleviate pain. If you continue to experience significant pain 4-5 days after your procedure, it may be necessary to be re-evaluated by your physician. PRESCRIPTION RENEWALS: Renewal requests should be called in to our prescription line at [phone]. Narcotic renewals may be requested from 8am-4pm Wednesday through Wednesday. Due to patient safety, narcotic renewals will not be honored after hours or on weekends. It is best to make your request 2-3 days before you run out of your medication as it will take at least 24 hours for physician approval and nurse follow-up. Note that certain prescriptions, such as Percocet, Oxycodone, Vicodin, & Hydrocodone can not becalled in to a pharmacy and must be picked up or mailed to you. If mailed to you, expect 2-5 business days prior to arrival. Post-Op Plan: - Follow up with [facility]/nurse in 7-10 days - Wound Check - Dressings removal if needed Future Appointments Date Time Provider Department Center 03/31/2017 9:30 AM Shilpi Gallegos MD [facility] 03/31/2017 10:00 AM Elizabeth Rosales PT [facility] 03/31/2017 11:15 AM Ruby Carrera MD [facility] * Attachments The following attachments cannot be sent through Care Everywhere. * MASTECTOMY: POST-OP (BULGARIAN) * BREAST RECONSTRUCTION WITH METAL PATTERN MAKER OR IMPLANT: POST-OP (BULGARIAN) documented in this encounter Medications at Time [...] of calcium and 1600iu of Vit D cephalexin (KEFLEX) 500 mg Tablet Take 1 tablet by mouth 4 times daily for 10 days. To take while drains are in 40 tablet 1 03/16/2017 03/26/2017 oxyCODONE (ROXICODONE) 5 mg Tablet Take 1 tablet by mouth every 4 hours as needed for Pain. Can take 1-2 tablets for pain that is not controlled on tylenol and NSAIDs 24 tablet 03/16/2017 03/24/2017 polyethylene glycol (MIRALAX) 17 gram Powder in Packet Take 17 g by mouth daily as needed. 09/19/2019 docusate sodium (COLACE) 100 mg Capsule Take 100 mg by mouth daily. 09/19/2019 potassium chloride 20 mEq Tablet Sustained Release Take 1 tablet by mouth daily. 30 tablet 3 12/08/2016 03/24/2017 lidocaine-prilocaine (EMLA) Cream Apply small amount of cream using q-tip on mediport site approx 30-60 minutes before access. Cover site with saran wrap. 30 g 3 09/30/2016 11/04/2017 cetirizine (ZYRTEC) 10 mg tablet 10/02/2008 06/06/2019 documented as of this encounter Progress Notes * Pooja Sánchez RN - 03/16/2017 12:52 PM EST Patient Name: Trina Frances Patient Age: 36 y.o. Birthdate: 1980 Admit date: 03/15/2017 Attending Physician: Ruby Carrera MD Pt D/C home at 1300. providing transportation. AVS printed and reviewed w/ pt. All questions answered. Additional info on drain care included. Teaching done. Pt able to teach back drain care.PIV removed, pt tolerated well. Premedicated w/ pain meds prior to D/C per pt request. Paper prescriptions given to pt by . All pt belongings taken upon D/C. No vaccines indicated at this time. * Surinder Richards MD - 03/16/2017 11:16 AM EST Regional Anesthesia Progress Note Date of Encounter: 03/16/2017 Responsible Attending: Surinder Richards MD ID: Patient is POD# 1 s/p bilateral mastectomy for which the patient received bilateral PEC blocks for post-operative pain control. Subjective: Today the patient has good pain control and at present states pain is 4 out of 10. Patient has been able to tolerate PO analgesics and an oral diet without nausea or vomiting. Patient is without any complaints this morning. Objective: Temp: [36.4 ??C (97.5 ??F)-37.5 ??C (99.5 ??F)] Heart Rate: [64-76] Resp: [11-18] BP: (100-130)/(63-80) SpO2: [90 %-100 %] Heart Rate from SPO2: [65 bpm-73 bpm] Gen: Patient resting comfortably No bruising, erythema, swelling or discharge at insertion sites. Sensory: Sensation is intact to cold over the anterior abdomen bilaterally No evidence of local anesthetic toxicity Coags: No results found for: INR, PT, PTT Meds: Medication list reviewed Assessment: Patient is s/p TAP blocks for post-operative pain control, currently with good pain control. Blocks appear to have resolved appropriately without complication. Plan: ?? Regional block service will sign off at this time. ?? Continue current management per primary service. ?? Patient was instructed to contact Regional Anesthesia Team ([phone]) for any unresolved sensory deficits. ?? Thank you for the opportunity to have participated in the care of this patient. Surinder Richards MD Regional Team pager [phone] * ONeal Key MD - 03/15/2017 5:22 PM EST POST-OPERATIVE ASSESSMENT Patient Name: Trina Frances Patient Age: 36 y.o. Attending Physician: Ruby Carrera MD Trina Frances is a 36 y.o. female s/p b/l mastectomy with b/l TE placement for IDC/DCIS. S: Tolerated procedure without complication. No nausea/vomiting. Pain better controlled although seems to have itching with Dilaudid. Denies CP/SOB. O: Temp: [36.4 ??C (97.5 ??F)-37.5 ??C (99.5 ??F)] Heart Rate: [65-76] Resp: [11-18] BP: (109-130)/(63-80) SpO2: [90 %-100 %] Heart Rate from SPO2: [65 bpm-73 bpm] UOP=adequate Physical Exam Gen: NAD, resting comfortably CVS: RRR, no murmurs, rubs or gallops Resp: CTAB Abd: soft, nontender, nondistended Ext: SCDs in place, pulses present and equal in all four extremities Lines/Drains: b/l RUSS with mild sanguinous output, volume low A/P: Trina Frances is a 36 y.o. female sp [id number] currently in stable condition and recovering well - Stable for short stay - pain well controlled on scheduled tylenol, Oxy PRN, iv morphine for breakthrough if needed overnight - hemodynamically stable Neal Arana MD Plastic Surgery, PGY5 [phone] * Soumya Stephens RN - 03/15/2017 5:04 PM EST Patient Name: Trina Frances Patient Age: 36 y.o. Birthdate: 1980 Admit date: 03/15/2017 Attending Physician: Ruby Carrera MD Pt arrived from PACU in bed alert and oriented x 4, michael breast pain 10/19, surgical bra on, incisions and drains clean and intact. Pt oriented to room and call light, at bedside. * Lyric Watson RN - 03/15/2017 2:22 PM EST Report taken from BECKY Lockwood. Pt on standard monitors with alarms on and audible. Medicating fordiscomfort. 1400: Family in to bedside. Pt's VSS, she appears comfortable at rest but says she has pain with deep breaths. 1520: Remed for discomfort. Discussed pain issues and anxiety with pt. 1620: Report to BECKY Dooley in [facility]; readied for transport. * Mandie Ryan RN - 03/15/2017 1:11 PM EST Patient admitted to PACU. Hand off received from Moises Kim CRNA. , care assumed. Assessments as documented. Monitors on, alarms audible and individualized to patient. documented in this encounter H&P Notes * Tye Goel MD - 03/15/2017 7:12 AM EST Interval H&P HPI: The following was taken from Dr. 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 Her axillary and cervical nodes were imaged, and biosied to be negative. PET CT negative for distant disease. BRCA mutation negative. She is completing neoadjuvant chemotherapy ??TCH-P x 6 cycles, last treatment scheduled for 01/26. ?? OVerall she reports doing ok with treatment. + fatigue. thrombocytopenia secondary to chemotherapy (did have 20% dose reduction of docetaxel). Some back pain on and off. Increased bruising. PMH: Past Medical History: Diagnosis Date ??? Environmental allergies ??? IgA deficiency ??? Immune deficiency disorder ??? Invasive ductal carcinoma of right breast 09/22/2016 ??? Multiple food allergies ??? Placenta previa ??? Vitiligo PSH: Past Surgical History: Procedure Laterality Date ??? APPENDECTOMY ??? SECTION ??? NASAL SINUS SURGERY ??? TONSILLECTOMY Medications: No current facility-administered medications on file prior to encounter. Current Outpatient Prescriptions on File Prior to Encounter Medication Sig Dispense Refill ??? potassium chloride 20 mEq Tablet Sustained Release Take 1 tablet by mouth daily. 30 tablet 3 ??? docusate sodium (COLACE) 100 mg Capsule Take 100 mg by mouth daily. ??? LACTOBACILLUS ACIDOPHILUS (PROBIOTIC ORAL) Take by mouth daily. ??? fluconazole (DIFLUCAN) 100 mg Tablet Take 100 mg by mouth daily. ??? lidocaine-prilocaine (EMLA) Cream Apply small amount of cream using q-tip on mediport site approx 30-60 minutes before access. Cover site with saran wrap. 30 g 3 ??? multivitamin (THERAGRAN) Tablet Take 1 tablet by mouth daily. ??? cetirizine (ZYRTEC) 10 mg tablet Allergies: Allergies Allergen Reactions ??? Aspirin Hives ??? Hydrocodone-Acetaminophen Hives ??? Tegaderm [Transparent Dressings] Dermatitis ??? Tioconazole Social Hx: Social History Social History ??? Marital status: [...] ??? Not on file Social History Narrative No interval changes. No recent illness or changes in health. Physical Exam: General: NAD Cardiac: RRR Respiratory: CTAB Plan: Will proceed with planned surgery -right mastectomy and sentinel lymph node biopsy, prophylactic left nipple sparing mastectomy. Booked, marked, and consented. Tye Goel MD * Giovany Butcher MD - 03/15/2017 6:43 AM EST 24 HOUR INTERVAL H&P S: Trina Frances's condition unchanged since H&P originally performed Denies any new ED visits, hospitalizations, trauma, or new events. Has been overall doing well. O: Patient Vitals for the past 24 hrs: BP Temp Temp src Pulse Resp SpO2 Weight 03/15/17 0608 119/73 36.8 ??C (98.2 ??F) Temporal 82 16 97 % 51.7 kg (114 lb) NAD Non-labored Reg rate Site marked AP: 36 y.o. female with RIGHT BREAST CANCER. - After extensive discussion of the risks, benefits, and alteratives of surgical intervention, the patient consented to proceed with surgery. - IV antibiotics ordered - Proceed to OR for: Procedure(s): MASTECTOMY, SIMPLE, COMPLETE-MICHAEL (WRVU 15.85) BIOPSY OR EXCISION OF LYMPH NODE(S), OPEN, DEEP AXILLARY NODE(S) (WRVU 6.43) INTRAOPERATIVE ID (MAPPING) SENTINEL LYMPH NODE,INCLUDES INJECTION (WRVU 2.5) MODIFIER SENTINEL NODE EXCISION MODIFIER , NIPPLE SPARING BREAST RECONSTRUCTION, IMMEDIATE OR DELAYED, W/ TISSUE METAL PATTERN MAKER, INCLUDING SUBSEQUENT EXPANSION (WRVU 18.5) IMPLANTATION OF BIOLOGIC IMPLANT FOR SOFT TISSUE REINFORCEMENT (WRVU 3.65) Giovany Butcher MD Plastic Surgery Resident, PGY-8 documented in this encounter Miscellaneous Notes * Plan of Care - Elodia Faustin RN - 03/16/2017 1:59 AM EST Problem: Patient Care Overview Goal: Plan of Care Review Outcome: Ongoing (Interventions Implemented as Appropriate) 03/16/17 0147 Coping/Psychosocial Plan Of Care Reviewed With patient Plan of Care Review Progress progress toward functional goals as expected OUTCOME EVALUATION NOTE: OUTCOME SUMMARY: Trina had a fair night, she was able to rest between care. Her pain was an issue at the start of shift, throughout the night it has improved, oxycodone given every 4 hours and IV dilaudid given for break through pain as needed. She did complain of nausea and vomited a small amount, zofran was given with good effect She has ambulated and voided without difficulty. PLAN MOVING FORWARD: Continue to Monitor vitals pain and I&O Supportive bra on No ice RUSS drain monitoring Encourage ambulation Diet as tolerated Cluster care to ensure adequate periods of rest INDIVIDUALIZED FALL PREVENTION INTERVENTIONS: Patient-specific fall risk factors per assessment: [current deficits]: Pt is a low/moderate risk tofall r/t recent surgical procedure, lingering effects of anesthesia, use of opioid pain medication and being tethered to IV pole Assistance [level of assistance required for transfers and ambulation]: Stand by assist as needed Supervision [direct monitoring required during toileting and ADLs]: none Surveillance [continuous indirect monitoring]: Hourly rounding Patient-specific fall prevention interventions for sensory deficits provided, if applicable: NA CPG GOAL OUTCOME EVALUATION: Goal: Fall Prevention-Safe Patient Handling Outcome: Ongoing (Interventions Implemented as Appropriate) 03/15/17199903/16/17146 Musculoskeletal Interventions Muscle Strengthening -- activity/mobility promoted Activity and Safety Assistive Device -- None Daily Care Interventions Self-Care Promotion -- independence encouraged;BADL personal objects within reach Larsen Fall Risk History of Falling 0 -- Secondary Diagnosis 15 -- Ambulatory Aids 0 -- Intravenous Therapy/Heparin/Saline Lock 20 -- Gait/Transferring 0 -- Mental Status 0 -- Score 35 -- OTHER Larsen Fall Risk Med -- Restraint Interventions Safety Promotion/Fall Prevention safety round/check completed;nonskid shoes/slippers when out of bed;fall prevention program maintained -- Positioning Body Position independent -- Goal: Infection Control Outcome: Ongoing (Interventions Implemented as Appropriate) 03/15/171999 Safety Interventions Isolation Precautions standard precautions maintained Infection Prevention single patient room provided;rest/sleep promoted;environmental surveillance performed Coping Strategies Supportive Measures self-care encouraged;active listening utilized Goal: Discharge Needs Assessment Outcome: Ongoing (Interventions Implemented as Appropriate) 03/16/17146 Discharge Needs Assessment Concerns To Be Addressed basic needs concerns Readmission Within The Last 30 Days no previous admission in last 30 days Equipment Needed After Discharge none Discharge Disposition home or self-care Discharge Planning Comments discharge to home once discharge criteria is met Current Health Anticipated Changes Related to Illness none Activity/Self Care Review of Systems Equipment Currently Used at Home none Living Environment Transportation Available car;family or friend will provide Goal: Interdisciplinary Rounds/Family Conf Outcome: Ongoing (Interventions Implemented as Appropriate) 03/16/17146 Interdisciplinary Rounds/Family Conf Participants nursing;patient * Op Note - Frantz Martínez MD - 03/15/2017 1:01 PM EST [facility] [place] Operative Note Patient Name: Trina Frances : [id number] MR#: [id number] Case Date: 03/15/2017 Surgeon: Surgeon(s) and Role: Panel 1: * Ruby Carrera MD - Primary * Tye Goel MD Panel 2: * Frantz Martínez MD - Primary * Niki Bass PA - Physician Carburetor Specialist Preoperative diagnosis: RIGHT BREAST CANCER Postoperative diagnosis: * No post-op diagnosis entered * Procedure(s) (LRB): MASTECTOMY, SIMPLE, COMPLETE-MICHAEL (WRVU 15.85) (Bilateral) BIOPSY OR EXCISION OF LYMPH NODE(S), OPEN, DEEP AXILLARY NODE(S) (WRVU 6.43) (Right) INTRAOPERATIVE ID (MAPPING) SENTINEL LYMPH NODE,INCLUDES INJECTION (WRVU 2.5) (Right) MODIFIER SENTINEL NODE EXCISION (Right) MODIFIER , NIPPLE SPARING (Left) BREAST RECONSTRUCTION, IMMEDIATE OR DELAYED, WITH TISSUE METAL PATTERN MAKER INCLUDING SUBSEQUENT EXPANSION-MICHAEL (WRVU 18.5) (Right) IMPLANTATION OF BIOLOGIC IMPLANT FOR SOFT TISSUE REINFORCEMENT (WRVU 3.65) (Right) Anesthesia: General Estimated Blood Loss: * No values recorded between 03/15/2017 8:47 AM and 03/15/2017 12:37 PM * Specimens removed during surgery: Order Name Source Comment Collection Info Order Time SPECIMEN TO PATHOLOGY (SURGICAL OR DERM) RIGHT BREAST CANCER right mastectomy short superior long lateral 03/15/2017 9:51 AM Time removed from patient: 9:51 AM SPECIMEN TO PATHOLOGY (SURGICAL OR DERM) RIGHT BREAST CANCER right axillary sentinel lymph #1 03/15/2017 9:56 AM Time removed from patient: 9:56 AM SPECIMEN TO PATHOLOGY (SURGICAL OR DERM) RIGHT BREAST CANCER right axillary sentinel lymph #2 03/15/2017 9:58 AM Time removed from patient: 9:58 AM SPECIMEN TO PATHOLOGY (SURGICAL OR DERM) RIGHT BREAST CANCER right axillary sentinel lymph #3 03/15/2017 10:07 AM Time removed from patient: 10:06 AM SPECIMEN TO PATHOLOGY (SURGICAL OR DERM) RIGHT BREAST CANCER right axillary sentinel lymph #4 03/15/2017 10:12 AM Time removed from patient: 10:11 AM SPECIMEN TO PATHOLOGY (SURGICAL OR DERM) RIGHT BREAST CANCER left nipple sparing mastectomy short superior, long lateral 03/15/2017 11:11 AM Time removed from patient: 11:05 AM Drains: Drain/Device Site 03/15/17 1153 Left breast (Active) Insertion Site dressing intact;clean and dry 03/16/2017 7:53 AM Drain Device Number LEFT 03/15/2017 7:23 PM Drainage Characteristics/Odor sanguineous 03/16/2017 9:48 AM Drainage Amount small 03/16/2017 9:48 AM General Output (mL) 20 03/16/2017 9:48 AM Drain/Device Site 03/15/17 1155 Right breast (Active) Insertion Site clean and dry;dressing intact 03/16/2017 7:53 AM Drain Device Number RIGHT 03/15/2017 7:23 PM Drainage Characteristics/Odor sanguineous 03/16/2017 9:48 AM Drainage Amount small 03/16/2017 9:48 AM General Output (mL) 20 03/16/2017 9:48 AM Surgical Closure: Primary Closure - closure of [...] pertinent to this patient.) HPI/Surgical Indications/Procedure Description: Operative Findings: 300ccArtoura High Profile saline breast expanders were placed bilaterally in submuscular/Allomax pockets and filled to 100 cc with sterile saline. Technique: The patient's inframammary folds, midline, anterior axillary lines, and superior extent of breast tissue were marked with the patient in a standing position. The planned incisions were also marked preoperatively. She was given a prophylactic dose of antibiotics and taken to the OR where she was placed in a supine position. Both breasts and the axilla were sterilely prepped and draped. The General Surgery service performed bilateral mastectomies via the planned skin sparing incisions. Following completion of the ablative procedure, the breast reconstruction was begun. A plane was developed deep to the pectoralis major. Allomax, after appropriate soaking and rinsing in warm saline,was partially sutured to the lower border of the pectoral muscle and to the lateral and inferior breast pocket to create a sling to hold the implant in place. This was done with temporary sizers in place and filled with 300 cc's of saline to simulate the required coverage of the side laster tack at the completion of the expansion process. Interrupted and running 0 Vicryl sutures were used for this purpose. A 300 cc saline breast side laster tack was selected for the reconstruction on each side. Air was removed from the expanders and they were filled with 100 cc's of saline using a closed fill system. The pockets and expanders were irrigated with an antibiotic solution and fresh towels placed around the wounds. The surgical team changed gloves and the side laster tack was then introduced into the pocket and the muscle and Allomax closed over the implant with 0 Vicryl sutures. A drain was placed in each breast pocket, superficial to the muscle on each side. The skin was then temporarily closed and no tension waspresent over the skin closure. There was minimal tension on the muscle closure and no tension on the skin at this point. All incisions were then closed in 2 layers with 4-0 PDS interrupted sutures and then a 4-0 Monocrylplaced as a running subcuticular suture. The wounds were dressed with Dermabond, gauze, and a sterile Tegaderm dressing. Implant Name Type Inv. Item Serial No. Insole Channeler Lot No. LRB No. Used Action SIZER,RND,MDRT,+,PRFL,275-330C ([id number]) (AUTOREQ) - [id number] IMPLANTS SIZER,RND,MDRT,+,PRFL,275-330C ([id number]) (AUTOREQ) [employer] - [facility] [id number] Right 1 Implanted EXPAN,TISS,ARTOURA,300CC ([id number]) (AUTOREQ) - [id number] IMPLANTS EXPAN,TISS,ARTOURA,300CC ([id number]) (AUTOREQ) [id number] [employer] - [facility] [id number] Right 1 Implanted GRAFT,ALLOMAX,4X16CM,1MMTHK ([id number]) (AUTOREQ) - [id number] IMPLANTS GRAFT,ALLOMAX,4X16CM,1MMTHK ([id number]) (AUTOREQ) [id number] [employer] - 1825 [id number] 1 Implanted GRAFT,ALLOMAX,4X16CM,1MMTHK ([id number]) (AUTOREQ) - [id number] IMPLANTS GRAFT,ALLOMAX,4X16CM,1MMTHK ([id number]) (AUTOREQ) [id number] [employer] - 1825 [id number] Left 1 Implanted EXPAN,TISS,ARTOURA,300CC ([id number]) (AUTOREQ) - [id number] IMPLANTS EXPAN,TISS,ARTOURA,300CC ([id number]) (AUTOREQ) [id number] [employer] - [id number] Left 1 Implanted Infection Bundle used? No Attestation: Case Date: 03/15/2017 I was present and I participated during the entire procedure (does not need to include opening and closing). FRANTZ MARTÍNEZ MD 03/21/2017 * Brief Op Note - Niki Bass PA - 03/15/2017 12:42 PM EST Brief Operative Note Patient Name: Trina Frances : [id number] MR#: [id number] Case Date: 03/15/2017 Surgeon: Surgeon(s) and Role: Panel 1: * Ruby Carrera MD - Primary * Tye Goel MD Panel 2: * Frantz Martínez MD - Primary * Niki Bass PA - Physician Carburetor Specialist Preoperative diagnosis: RIGHT BREAST CANCER Postoperative diagnosis: * No post-op diagnosis entered * Procedure(s) (LRB): MASTECTOMY, SIMPLE, COMPLETE-MICHAEL (WRVU 15.85) (Bilateral) BIOPSY OR EXCISION OF LYMPH NODE(S), OPEN, DEEP AXILLARY NODE(S) (WRVU 6.43) (Right) INTRAOPERATIVE ID (MAPPING) SENTINEL LYMPH NODE,INCLUDES INJECTION (WRVU 2.5) (Right) MODIFIER SENTINEL NODE EXCISION (Right) MODIFIER , NIPPLE SPARING (Left) BREAST RECONSTRUCTION, IMMEDIATE OR DELAYED, WITH TISSUE METAL PATTERN MAKER INCLUDING SUBSEQUENT EXPANSION-MICHAEL (WRVU 18.5) (Right) IMPLANTATION OF BIOLOGIC IMPLANT FOR SOFT TISSUE REINFORCEMENT (WRVU 3.65) (Right) Anesthesia: General Findings: bilateral TE placement, filled to 100cc Complications: none Estimated Blood Loss: * No values recorded between 03/15/2017 8:47 AM and 03/15/2017 12:42 PM * Specimens removed during surgery: Order Name Source Comment Collection Info Order Time SPECIMEN TO PATHOLOGY (SURGICAL OR DERM) RIGHT BREAST CANCER right mastectomy short superior long lateral 03/15/2017 9:51 AM Time removed from patient: 9:51 AM SPECIMEN TO PATHOLOGY (SURGICAL OR DERM) RIGHT BREAST CANCER right axillary sentinel lymph #1 03/15/2017 9:56 AM Time removed from patient: 9:56 AM SPECIMEN TO PATHOLOGY (SURGICAL OR DERM) RIGHT BREAST CANCER right axillary sentinel lymph #2 03/15/2017 9:58 AM Time removed from patient: 9:58 AM SPECIMEN TO PATHOLOGY (SURGICAL OR DERM) RIGHT BREAST CANCER right axillary sentinel lymph #3 03/15/2017 10:07 AM Time removed from patient: 10:06 AM SPECIMEN TO PATHOLOGY (SURGICAL OR DERM) RIGHT BREAST CANCER right axillary sentinel lymph #4 03/15/2017 10:12 AM Time removed from patient: 10:11 AM SPECIMEN TO PATHOLOGY (SURGICAL OR DERM) RIGHT BREAST CANCER left nipple sparing mastectomy short superior, long lateral 03/15/2017 11:11 AM Time removed from patient: 11:05 AM Fluids: Intraprocedure Crystalloid Total None PRBCs: none (See Anesthesia Record/Report for Other Blood Products) Urine Output: 140 mL Drains: 2 RUSS Disposition: awakened from anesthesia, extubated and taken to the recovery room in a stable condition, having suffered no apparent untoward event. Condition: doing well without problems (Please see the Surgical Encounter Summary for any Implant and Specimen details pertinent to this patient.) Infection Bundle used? No Post Op Plan: 7-10 days: Return for wound check, suture removal, drain removal per protocol, give patient pathology report, review post-op activity restrictions 6 months: terminal carman f/u with surgeon Future Appointments Date Time Provider Department Center 03/31/2017 9:30 AM Shilpi Gallegos MD [facility] 03/31/2017 10:00 AM Elizabeth Rosales PT [facility] 03/31/2017 11:15 AM Ruby Carrera MD [facility] * Op Note - Ruby Carrera MD - 03/15/2017 12:12 PM EST [facility] Operative Note Patient Name: Trina Frances : [id number] MR#: [id number] Case Date: 03/15/2017 Surgeon: Surgeon(s) and Role: Panel 1: * Ruby Carrera MD - Primary * Tye Goel MD Panel 2: * Frantz Martínez MD - Primary * Niki Bass PA - Physician Carburetor Specialist Preoperative diagnosis: RIGHT BREAST CANCER Postoperative diagnosis: RIGHT BREAST CANCER Procedure(s) (LRB): PANEL 1 (Debi ) MASTECTOMY, SIMPLE, COMPLETE-MICHAEL (WRVU 15.85) (Bilateral) BIOPSY OR EXCISION OF LYMPH NODE(S), OPEN, DEEP AXILLARY NODE(S) (WRVU 6.43) (Right) INTRAOPERATIVE ID (MAPPING) SENTINEL LYMPH NODE,INCLUDES INJECTION (WRVU 2.5) (Right) MODIFIER SENTINEL NODE EXCISION (Right) MODIFIER , NIPPLE SPARING (Left) Panel 2 (Freed) BREAST RECONSTRUCTION, IMMEDIATE OR DELAYED, W/ TISSUE METAL PATTERN MAKER, INCLUDING SUBSEQUENT EXPANSION (WRVU 18.5) (Right) IMPLANTATION OF BIOLOGIC IMPLANT FOR SOFT TISSUE REINFORCEMENT (WRVU 3.65) (Right) Anesthesia: General Estimated Blood Loss: 70cc Specimens removed during surgery: Order Name Source Comment Collection Info Order Time SPECIMEN TO PATHOLOGY (SURGICAL OR DERM) RIGHT BREAST CANCER right mastectomy short superior long lateral 03/15/2017 9:51 AM Time removed from patient: 9:51 AM SPECIMEN TO PATHOLOGY (SURGICAL OR DERM) RIGHT BREAST CANCER right axillary sentinel lymph #1 03/15/2017 9:56 AM Time removed from patient: 9:56 AM SPECIMEN TO PATHOLOGY (SURGICAL OR DERM) RIGHT BREAST CANCER right axillary sentinel lymph #2 03/15/2017 9:58 AM Time removed from patient: 9:58 AM SPECIMEN TO PATHOLOGY (SURGICAL OR DERM) RIGHT BREAST CANCER right axillary sentinel lymph #3 03/15/2017 10:07 AM Time removed from patient: 10:06 AM SPECIMEN TO PATHOLOGY (SURGICAL OR DERM) RIGHT BREAST CANCER right axillary sentinel lymph #4 03/15/2017 10:12 AM Time removed from patient: 10:11 AM SPECIMEN TO PATHOLOGY (SURGICAL OR DERM) RIGHT BREAST CANCER left nipple sparing mastectomy short superior, long lateral 03/15/2017 11:11 AM Time removed from patient: 11:05 AM Drains: Per plastics Surgical Closure: Primary Closure - closure of ALL tissue levels during the original surgery regardless of wires, wickes, drains, or other devices extruding through the incision Disposition: discussed and handed to plastics for reconstruction Condition: doing well without problems (Please see the Surgical Encounter Summary for any Implant and Specimen details pertinent to this patient.) Findings: right breast areola sparing mastectomy done without complication. Patient mapped to 4 hotright axillary SLNs. #1: 1539; #2: 61294, #3: 2276; #4: 38940. Remaining counts 122. Left nipple sparing mastectomy performed without complication. Left mediport left intact. Operative Indications: Trina Frances is a 36 y.o. 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 She also had a suspicious axillary node which was biopsied and found to be benign as well as cervical LN negative biopsy. PET CT negative for distant disease prior to chemo. NS/p neoadjuvant chemotherapy. Plan for right areolar sparing mastectomy and sentinel lymph node biopsy and left prophylactic nipple sparing mastectomy. Plan for immediate TE side laster tack reconstructionby plastic surgery. I explained the implications, indications and alternatives to the proposed treat ment plan as well as the risks, including infection, bleeding/hematoma, need for additional surgery, lymphedema. Consent was signed. Operative Procedure: Trina Frances was admitted through Same Day Surgery. She was brought up to Radiology where I injected technetium in the right breast at 12 oclock adjacent to areola. She was brought to the Operating Room and laid supine on the operating table. General anesthetics were administered, and an endotracheal tube was placed. There was a specific hot signal in the right axilla so blue dye was not used for mapping. The chest and axilla was prepped and draped in a sterile fashion with chloroprep. Time-out confirmed the patient's identity, the correct surgical site, and the administration of prophylactic antibiotics. Methylene blue was injected along the IMF and 1cm from the sternal edge. Attention was turned to the right breast. A lateral transverse incision from the lateral nipple edge, to the anterior axillaryline was made sharply. THe areola was left intact, but the nipple was incised in order to remain with the specimen. The incision was brought through the dermis using electrocautery. Skin flaps were elevated circumferentially inferiorly to the inframammary fold, laterally to the latissimus border, medially to the sternal border, and superiorly to the infraclavicular border. This was difficult and tedious due to the small incision made in order to preserve the areola for an areola sparing mastectomy. The breast was then mobilized inclusive of the underlying pectoralis major fascia. The breast was removed and oriented as described above with a silk suture. This procedure took much more time than would be expected since it was done through a small incision in order to preserve the areola. Thebreast was weighed and sent to pathology. Using the gamma probe the right axilla was probed to identify an area of uptake. Going through the mastectomy incision, dissection was carried down through the clavipectoral fascia to expose the axillary lymph node basin. The gamma probe identified an area of jose enrique uptake and this was dissected free from its lymphareolar attachments. Clips were placed on the lymphatic channels to prevent seroma formation. The node was removed and sent to pathology as sentinel node #1. It was mildly enlarged. The ex vivo jose enrique counts are listed above. There was additional activity and additional nodes were identified and excised the same fashion. SLN #1-3 were firm. SLN#4 was small. All were counted, labelled and sent to pathology. The remaining count was 122, less than 10% of the hottest node therefore wewere satisfied that all sentinel nodes had been removed. The wound was irrigated with saline and hemostasis was obtained with electrocautery. We placed a moist lap pad and proceeded to the other side. We brought our attention to the left breast. A lateral transverse incision from the lateral nipple edge, to the anterior axillary line was made sharply. The incision was brought through the dermis using electrocautery. Skin flaps were elevated circumferentially inferiorly to the inframammary fold, laterally to the latissimus border, medially to the sternal border, and superiorly to the infraclavicular border. Using Metzenbaum scissors, the undersurface of the nipple was cored out. The mastectomy was difficult and tedious due to the small incision made in order to preserve the nipple for a nipple sparing mastectomy. The breast was then mobilized inclusive of the underlying pectoralis major fa scia. The breast was removed and oriented as described above with a silk suture. This procedure took much more time than would be expected since it was done through a small incision in order to preserve the areola. The breast was weighed and sent to pathology. The wound was irrigated and hemostasiswas obtained with electrocautery. We placed a moist lap pad in the wound. At this time the patient was discussed with the plastic surgery team with attending at the bedside and the patient was handed over for reconstruction. All counts were reported to me as correct for this part of the operation. Infection Bundle used? N/A Attestation: Case Date: 03/15/2017 I was present and I participated during the entire procedure (does not need to include opening and closing). RUBY CARRERA MD 03/15/2017 * Brief Op Note - Ruby Carrera MD - 03/15/2017 12:09 PM EST Brief Operative Note Patient Name: Trina Frances : [id number] MR#: [id number] Case Date: 03/15/2017 Surgeon: Surgeon(s) and Role: Panel 1: * Ruby Carrera MD - Primary * Tye Goel MD Panel 2: * Frantz Martínez MD - Primary * Niki Bass PA - Physician Carburetor Specialist Preoperative diagnosis: RIGHT BREAST CANCER Postoperative diagnosis: RIGHT BREAST CANCER Procedure(s) (LRB): PANEL 1 (DEBI) MASTECTOMY, SIMPLE, COMPLETE-MICHAEL (WRVU 15.85) (Bilateral) BIOPSY OR EXCISION OF LYMPH NODE(S), OPEN, DEEP AXILLARY NODE(S) (WRVU 6.43) (Right) INTRAOPERATIVE ID (MAPPING) SENTINEL LYMPH NODE,INCLUDES INJECTION (WRVU 2.5) (Right) MODIFIER SENTINEL NODE EXCISION (Right) MODIFIER , NIPPLE SPARING (Left) PANEL 2 (Yudith) BREAST RECONSTRUCTION, IMMEDIATE OR DELAYED, W/ TISSUE METAL PATTERN MAKER, INCLUDING SUBSEQUENT EXPANSION (WRVU 18.5) (Right) IMPLANTATION OF BIOLOGIC IMPLANT FOR SOFT TISSUE REINFORCEMENT (WRVU 3.65) (Right) Anesthesia: General Findings: right breast areola sparing mastectomy done without complication. Patient mapped to 4 hotright axillary SLN. Left nipple sparing mastectomy performed without complication. Left mediport left intact. Complications: none Intake: Per anesthesia Output: Estimated Blood Loss: 70cc Urine Output:: 120 mL Other Output: (no other output recorded) Drains:per plastics Specimens removed during surgery: Order Name Source Comment Collection Info Order Time SPECIMEN TO PATHOLOGY (SURGICAL OR DERM) RIGHT BREAST CANCER right mastectomy short superior long lateral 03/15/2017 9:51 AM Time removed from patient: 9:51 AM SPECIMEN TO PATHOLOGY (SURGICAL OR DERM) RIGHT BREAST CANCER right axillary sentinel lymph #1 03/15/2017 9:56 AM Time removed from patient: 9:56 AM SPECIMEN TO PATHOLOGY (SURGICAL OR DERM) RIGHT BREAST CANCER right axillary sentinel lymph #2 03/15/2017 9:58 AM Time removed from patient: 9:58 AM SPECIMEN TO PATHOLOGY (SURGICAL OR DERM) RIGHT BREAST CANCER right axillary sentinel lymph #3 03/15/2017 10:07 AM Time removed from patient: 10:06 AM SPECIMEN TO PATHOLOGY (SURGICAL OR DERM) RIGHT BREAST CANCER right axillary sentinel lymph #4 03/15/2017 10:12 AM Time removed from patient: 10:11 AM SPECIMEN TO PATHOLOGY (SURGICAL OR DERM) RIGHT BREAST CANCER left nipple sparing mastectomy short superior, long lateral 03/15/2017 11:11 AM Time removed from patient: 11:05 AM Disposition: patient doing well. Discussed at bedside with Dr Martínez who resumed care for reconstruction Condition: doing well without problems Attestation: Case Date: 03/15/2017 I was present and I participated during the entire procedure (does not need to include opening and closing). (Please see the Surgical Encounter Summary for any Implant and Specimen details pertinent to this patient.) documented in this encounter Plan of Treatment Upcoming Encounters Date Type Department Care Team (Late st Contact Info) Description 06/30/2024 4:30 PM EDT Office Visit Hematology [place] [address] Shilpi Gallegos MD [facility] [address] [place] [address] documented as of this encounter Procedures Procedure Name Priority Date/Time Associated Diagnosis Comments SPECIMEN TO PATHOLOGY Routine 03/15/2017 11:11 AM EST SPECIMEN TO PATHOLOGY Routine 03/15/2017 10:12 AM EST SPECIMEN TO PATHOLOGY Routine 03/15/2017 10:07 AM EST SPECIMEN TO PATHOLOGY Routine 03/15/2017 9:59 AM EST SPECIMEN TO PATHOLOGY Routine 03/15/2017 9:56 AM EST SURGICAL PATHOLOGY REPORT Routine 03/15/2017 9:51 AM EST SPECIMEN TO PATHOLOGY Routine 03/15/2017 9:51 AM EST IMPLANTATION OF BIOLOGIC IMPLANT FOR SOFT TISSUE REINFORCEMENT (WRVU 3.65) 03/15/2017 8:06 AM EST RIGHT BREAST CANCER BREAST RECONSTRUCTION, IMMEDIATE OR DELAYED, WITH TISSUE METAL PATTERN MAKER INCLUDING SUBSEQUENT EXPANSION-MICHAEL (WRVU 14.84) 03/15/2017 8:06 AM EST RIGHT BREAST CANCER MODIFIER , NIPPLE SPARING 03/15/2017 8:06 AM EST RIGHT BREAST CANCER MODIFIER SENTINEL NODE EXCISION 03/15/2017 8:06 AM EST RIGHT BREAST CANCER INTRAOPERATIVE ID (MAPPING) SENTINEL LYMPH NODE,INCLUDES INJECTION (WRVU 2.5) 03/15/2017 8:06 AM EST RIGHT BREAST CANCER BIOPSY OR EXCISION OF LYMPH NODE(S), OPEN, DEEP AXILLARY NODE(S) (WRVU 6.43) 03/15/2017 8:06 AM EST RIGHT BREAST CANCER MASTECTOMY, SIMPLE, COMPLETE-MICHAEL (WRVU 15) 03/15/2017 8:06 AM EST RIGHT BREAST CANCER HEMOGRAM Routine 03/15/2017 6:50 AM EST DIFFERENTIAL, AUTOMATED Routine 03/15/20 17 6:50 AM EST CREATININE Routine 03/15/2017 6:50 AM EST CBC (WITH DIFF) Routine 03/15/2017 6:50 AM EST BUN Routine 03/15/2017 6:50 AM EST ELECTROLYTES PANEL Routine 03/15/2017 6: 50 AM EST IMPLANTABLE DEVICES SCAN 03/15/2017 12:[address] JUSTICE SCAN 03/15/2017 12:00 AM EST POCT URINE Routine 03/15/2017 documented in this encounter Results * Specimen to Pathology (surgical or derm) (03/15/2017 11:11 AM EST) AP Specimen 03/15/2017 11:1 1 AM EST 03/15/2017 11:11 AM EST Narrative [facility] - 03/15/2017 11:11 AM EST Specimen requisition ordered. ??Separate Pathology report to follow Ruby Daniel MD PATHOLOGY/CYTOLO GY ORDERABLES Performing Organization Address [facility] [place] [address] * Specimen to Pathology (surgical or derm) (03/15/2017 10:12 AM EST) AP Specimen 03/15/2017 10:1 2 AM EST 03/15/2017 10:12 AM EST Narrative [facility] - 03/15/2017 10:12 AM EST Specimen requisition ordered. ??Separate Pathology report to follow Ruby Daniel MD PATHOLOGY/CYTOLO GY ORDERABLES Performing Organization Address [facility] [place] [address] * Specimen to Pathology (surgical or derm) (03/15/2017 10:07 AM EST) AP Specimen 03/15/2017 10:0 7 AM EST 03/15/2017 10:07 AM EST Narrative [facility] - 03/15/2017 10:07 AM EST Specimen requisition ordered. ??Separate Pathology report to follow Ruby Daniel MD PATHOLOGY/CYTOLO GY ORDERABLES Performing Organization Address [facility] [place] [address] * Specimen to Pathology (surgical or derm) (03/15/2017 9:59 AM EST) AP Specimen 03/15/2017 9:59 AM EST 03/15/2017 9:59 AM EST Narrative [facility] - 03/15/2017 9:59 AM EST Specimen requisition ordered. ??Separate Pathology report to follow Ruby Daniel MD PATHOLOGY/CYTOLO GY ORDERABLES Performing Organization Address [facility] Co de Phone Number [facility] [place] [address] * Specimen to Pathology (surgical or derm) (03/15/2017 9:56 AM EST) AP Specimen 03/15/2017 9:56 AM EST 03/15/2017 9:56 AM EST Narrative [facility] - 03/15/2017 9:56 AM EST Specimen requisition ordered. ??Separate Pathology report to follow Ruby Daniel MD PATHOLOGY/CYTOLO GY ORDERABLES Performing Organization Address [facility] [place] [address] * Surgical Pathology Report (03/15/2017 9:51 AM EST) Final Diagnosis [id number] ? Location: [facility]; The signing pathologist has (i) examined the relevant preparation(s) for the specimen(s) and (ii) rendered or confirmed the diagnosis(es). . ? Addendum ADDENDUM DISCUSSION This case has been reviewed by Kam Skinner MD of [facility] ?'s [facility] ([facility]) by report dated 05/03/2017 with the accession number [id number]. The [facility] ?[facility] [employer] [facility] ([facility]) diagnosis is in minor disagreement with our diagnosis. While I reported the residual invasive carcinoma as being present as scattered, rare minute clusters (pT1mi), Dr. Skinner measured a distance of 0.2 cm between clusters (pT1a). The [facility] pathology report was discussed with Dr. Finn on 05/05/17. For the full text of the [facility] report(s, please refer to Non-DH Documentation Pathology in the electronic health record (eDH). Electronically signed by: ??Miguel Richards MD Verified: ??05/11/2017 ?Pathologist Performed at: ??-[facility] Dept. of Pathology, [place], [place] ?Surgical Pathology DIAGNOSIS A - Right axillary sentinel lymph node #1, excision: - One lymph node, no malignancy identified (0/1) - Definitive treatment effect not seen B - Right axillary sentinel lymph node #2, excision: - Two lymph nodes, no malignancy identified (0/2) - Definitive treatment effect not seen C - Right axillary sentinel lymph node #3, excision: - Four lymph nodes, no malignancy identified (0/4) - Definitive treatment effect not seen D - Right axillary sentinel lymph node #4, excision: - One lymph node, no malignancy identified (0/1) - Definitive treatment effect not seen E - Right breast, skin-sparing mastectomy (post neoadjuvant therapy): - Partial pathologic response; focal residual invasive ductal carcinoma (see Synoptic Report and Discussion) - Focal residual ductal carcinoma in-situ with treatment effect - Stromal fibrosis and chronic inflammation consistent with treated tumor bed (at least 1.5 cm) - Biopsy site changes F - Left breast, skin and nipple-sparing mastectomy: Benign breast tissue Synoptic Report Specimen ? Procedure: ??Skin-sparing mastectomy ? Lymph Node Sampling: ?? [place] lymph node(s) ? Specimen Laterality: ?? Right Tumor ? Histologic Type: ?? Invasive ductal carcinoma . DIAGNOSIS ? Glandular (Acinar) / Tubular Differentiation: ?Only microinvasion present ?(not graded) ? Nuclear Pleomorphism: ?? Only microinvasion present (not graded) ? Mitotic Rate: ?? Only microinvasion present (not graded) ? Tumor Size: Size of Largest Invasive Carcinoma: ?Microinvasion only ( < = 1 ?mm) ? Ductal Carcinoma In Situ (DCIS): ?DCIS is present ?Architectural Patterns: ?? Solid ?Nuclear Grade: ?? Grade III (high) ?Necrosis: ??Not identified ? Tumor Extent ?Macroscopic and Microscopic Extent of Tumor ? Nipple DCIS: ??DCIS does not involve the nipple epidermis ? Skeletal Muscle: ?? Skeletal muscle is free of carcinoma ? Accessory Tumor Findings ?Lymph-Vascular Invasion: ?? Not identified ?Microcalcification s: ?? Present in DCIS ?Treatment Effect: Response To Presurgical (Neoadjuvant) Therapy: ?Presurgical therapy ? In The Breast: ??Probable or definite response to presurgical therapy in ?the invasive carcinoma ? In The Lymph Nodes: ?? No lymph node metastases and no prominent fibrous ?scarring in the nodes Margins ? Invasive Carcinoma: ?? Margins uninvolved by invasive carcinoma ?Distance of Invasive Carcinoma to Margins ? Anterior: ??5 mm ? Posterior: ??>10 mm ? Ductal Carcinoma In Situ (DCIS): ?Margins uninvolved by DCIS ?Distance of DCIS to Margins ? Anterior: ??Treated DCIS 3 mm ? Posterior: ??Possible treated DCIS 3 mm Lymph Nodes ? [place] Lymph Nodes: ?? [place] lymph node biopsy performed ? Number of [place] Nodes Examined: ?8 ? Lymph Node Involvement: ?? None identified Stage (pTNM) ? TNM Descriptors: ?? y (post-treatment) ? Regional Lymph Nodes (pN) ?Modifier: ??(sn): Only sentinel node(s) evaluated ? Pathological Stage: ?? pT1mi ??pN0 Tumor Block(s): ?? E7 CAP [facility] June 2015 Annual Release Electronically signed by: ??Maurice LEGER, Miguel Mcelroy Verified: ??03/19/2017 ?Pathologist Performed at: ??-[facility] Dept. of Pathology, [place], [place] DISCUSSION Sections show rare minute clusters of residual invasive carcinoma (each measuring ??<0.1 cm) present within a treated tumor bed in the upper inner quadrant that measures at least 1.5 cm. Possible treated DCIS is also seen in a section from the upper outer quadrant. ADDITIONAL STUDIES Immunohistochemistry Studies: Formalin-fixed, paraffin-embedded tissue sections are studied using the polymer technique with appropriate positive and negative controls. ?These IHC studies provide the pathologist with adjunctive diagnostic information. Antibody specificity has been verified by testing antibodies on a series of in-house tissues with known immunohistochemical performance characteristics. The clinical interpretation of any antibody positive staining or its absence is evaluated within the context of . ADDITIONAL STUDIES clinical presentation, morphology, histopathological criteria and other diagnostic tests. Block ? Antibody ?Result (Positive/Negative) E7 ? CKAE1/3 ?Highlights residual carcinoma E7 ? Calponin ? Negative for myoepithelial cells CLINICAL INFORMATION Specimen Submitted: A - Right axillary sentinel lymph node #1 B - Right axillary sentinel lymph node #2 C - Right axillary sentinel lymph node #3 D - Right axillary sentinel lymph node #4 E - Right mastectomy, short-superior, long-lateral F - Left nipple-sparing mastectomy, short-superior, long-lateral Clinical History: Right breast cancer Clinical Diagnosis: Right breast cancer SPECIMEN PROCESSING A - ??Labeled/Fixative: Right axillary sentinel lymph node #1, fresh. Quantity/Size: Single, 2.0 x 1.2 x 0.8 cm. Tissue Description: Single pink-red lymph node surrounded by yellow adipose tissue. Sections/Processing: (A1) One lymph node, bisected. (R1) B - ??Labeled/Fixative: Right axillary sentinel lymph node #2, fresh. Quantity/Size: Single, 2.9 x 1.8 x 0.8 cm. Tissue Description: Yellow lobulated adipose tissue. Sectioning reveals two light pink lymph nodes. Sections/Processing: (B1-B2) one lymph node, bisected, per cassette. (R2) C - ??Labeled/Fixative: Right axillary sentinel lymph node #3, fresh. Quantity/Size: Single, 2.5 x 2.0 x 1.0 cm. Tissue Description: Lobulated, yellow adipose tissue. Sectioning reveals four light pink lymph nodes. Sections/Processing: (C1-C4) one lymph node, bisected, per cassette. (R4) D - ??Labeled/Fixative: Right axillary sentinel lymph node #4, fresh. Quantity/Size: Single, 1.1 x 0.9 x 0.7 cm. Tissue Description: Single light pink lymph node surrounded by yellow adipose tissue. Sections/Processing: (D1) one lymph node, bisected. (R1) E - ??Labeled/Fixative: Right mastectomy, short-superior, long-lateral, fresh Qty/Size/Weight: Single, 15.0 x 15.0 x 3.0 cm, 240 grams. SPECIMEN DESCRIPTION Resection Specimen: Right, simple, skin-sparing mastectomy. Orientation: Received oriented with a short suture marking superior and a long suture marking lateral. Skin: Not present Nipple: 1.5 cm diameter, everted, light pink, without lesions. Deep Margin: Intact, adipose tissue ??. LESION Description: Poorly circumscribed, firm white mass surrounding biopsy clip. Location: Located approximately 3 cm superior to the nipple, in the upper inner quadrant. Size: 1.0 x 0.7 x 0.6 cm. Color: White. Consistency: Firm. Borders: Stellate. Clip: Venous clip, identified within lesion. . SPECIMEN PROCESSING Margins: 1.4 cm to deep-black margin, and 0.5 cm to superficial-blue. OTHER Additional lesions: Not identified. Parenchyma: Yellow lobulated adipose tissue with dense tamayo-pink fibrous septa. Lymph Nodes: Not identified SECTIONS/PROCESSING: ?? (E1-E2) entire nipple, serially sectioned perpendicular to nipple base; (E3) base of nipple, en face; (E4-E5) upper inner quadrant, lesion, full thickness, split, including site of clip and closest margins, deep-black and superficial-blue; (E6-E7) upper inner quadrant, additional lesion (the entire lesion has been submitted); (E8-E9) customer support representative fibrous tissue, lower inner quadrant; (E10-E11) customer support representative fibrous tissue, lower outer quadrant; (E12-E13) customer support representative fibrous tissue, upper outer quadrant. ?(R13) Ischemic Time: 101 minutes F - ??Labeled/Fixative: Left nipple-sparing mastectomy, short-superior, long-lateral, fresh Qty/Size/Weight: Single, 13.2 x 12.6 x 2.6 cm, 188 grams. SPECIMEN DESCRIPTION Resection Specimen: Received intact, nipple-sparing and skin-sparing complete mastectomy. Orientation: Received oriented with a short stitch marking superior and a long stitch marking lateral. Skin: Not present. Nipple: Not present. Deep Margin: Intact, fibrous tissue. Parenchyma: Yellow adipose tissue with white-pink fibrous septa. No lesions are identified. SECTIONS/PROCESSING: ?? (F1) nipple margin, en face; (F2-F3) customer support representative upper inner quadrant; (F4-F5) customer support representative lower inner quadrant; (F6-F7) customer support representative lower outer quadrant; (F8-F9) customer support representative upper outer quadrant ?? . (R9) Ischemic Time: 208 minutes ??knr 05/11/2017 3:08 PM EST [facility] BREAST STRUCTURE / Unknown 03/15/2017 9:51 AM EST 03/15/2017 9:51 AM EST SENTINEL LYMPH NODE / Unknown 03/15/2017 9:51 AM EST 03/15/2017 9:51 AM EST SENTINEL LYMPH NODE / Unknown 03/15/2017 9:51 AM EST 03/15/2017 9:51 AM EST SENTINEL LYMPH NODE / Unknown 03/15/2017 9:51 AM EST 03/15/2017 9:51 AM EST BREAST STRUCTURE / Unknown 03/15/2017 9:51 AM EST 03/15/2017 9:51 AM EST BREAST STRUCTURE / Unknown 03/15/2017 9:51 AM EST 03/15/2017 9:51 AM EST Ruby Daniel MD PATHOLOGY/CYTOLO GY ORDERABLES Performing Organization Address City/[facility]/ZIP Co de Phone Number [facility] [place] [address] * Specimen to Pathology (surgical or derm) (03/15/2017 9:51 AM EST) AP Specimen 03/15/2017 9:51 AM EST 03/15/2017 9:51 AM EST Narrative [facility] - 03/15/2017 9:51 AM EST Specimen requisition ordered. ??Separate Pathology report to follow Ruby Daniel MD PATHOLOGY/CYTOLO GY ORDERABLES Performing Organization Address City/[facility] Co de Phone Number [facility] [place] [address] * Differential, Automated (03/15/2017 6:50 AM EST) Neutrophil % 55.7 % [facility] Neutrophil Absolute 2.12 1.70 - 6.10 x10(3)/[facility] Lymph % 32.8 % [facility] Lymphocytes Abs 1.2 0.9 - 3.2 x10(3)/[facility] Monocyte % 8.4 % [facility] Monocyte Abs 0.3 0.3 - 0.9 x10(3)/[facility] Eos % 2.6 % [facility] Eosinophils Abs 0.1 0.0 - 0.4 x10(3)/[facility] Basophil % 0.0 % [facility] Baso Absolute 0.0 0.0 - 0.1 x10(3)/[facility] Immature Gran % 0.50 % [facility] Comment: Immature granulocytes(IG's)percentage and absolute count will include metamyelocytes, myelocytes, and promyelocytes. Blood smears from CBCs yielding IG's will be scanned manually for concordance. If this scan disagrees with the automated IG or if promyelocytes are noted, a manual differential will be performed. Immature Gran Absolute 0.02 0.00 - 0.04 x10(3)/[facility] Blood specimen (specimen) 03/15/2017 6:50 AM EST 03/15/2017 6:56 AM EST Narrative Resulting Agency Comment Spec In Lab Ruby Daniel MD HEMATOLOGY ORDER ZAFAR [facility] [place] [address] * (ABNORMAL) Hemogram (03/15/2017 6:50 AM EST) White Blood Cell 3.8(L) 4.0 - 9.5 x10(3)/mc L [facility] Red Blood Cell 3.03(L) 4.00 - 5.21 x10(6)/mc L [facility] Hemoglobin 10.8(L) 11.7 - 15.5 gm/dL [facility] Hematocrit 31.3(L) 35.7 - 45.8 % [facility] Mean Cell Volume 103.3(H) 82.6 - 94.4 fL [facility] Mean Cell Hemoglobin 35.6(H) 27.1 - 32.0 pg [facility] Mean Cell Hemoglobin Concentration 34.5 31.7 - 35.0 gm/dL [facility] Platelet 184 145 - 357 x10(3)/mc L [facility] RDW Standard Deviation 49.1(H) 37.0 - 46.0 fL [facility] RDW coefficient of variation 12.9 11.5 - 14.1 % [facility] Mean Platelet Volume 9.2 7.6 - 12.9 fL [facility] NRBC% auto 0.0 % [facility] NRBC Absolute 0.000 0.000 - 0.000 x10(3)/mc L [facility] Blood specimen (specimen) 03/15/2017 6:50 AM EST 03/15/2017 6:56 AM EST Narrative Resulting Agency Comment Spec In Lab Ruby Daniel MD HEMATOLOGY ORDER ZAFAR Performing Organization Address [facility] Co de Phone Number [facility] [place] [address] * BUN (03/15/2017 6:50 AM EST) Blood Urea Nitrogen 12 8 - 18 mg/dL [facility] Blood specimen (specimen) 03/15/2017 6:50 AM EST 03/15/2017 6:56 AM EST Narrative Resulting Agency Comment Spec In Lab Ruby Daniel MD CHEMISTRY ORDERA BLES Performing Organization Address [facility] de Phone Number [facility] [place] [address] * Creatinine (03/15/2017 6:50 AM EST) Creatinine 0.74 0.70 - 1.20 mg/dL [facility] Est Glomerular Filtration Rate >60 >=60 [facility] Comment: The reported eGFR should be multiplied by 1.2 for patients. The MDRD is not an appropriate measure of renal function for patients with body mass extremes or in patients with acute kidney failure. http://S[employer].AutoMoneyBack/DHnkdep http://SenseData.AutoMoneyBack/DHMCnkf Blood specimen (specimen) 03/15/2017 6:50 AM EST 03/15/2017 6:56 AM EST Narrative Resulting Agency Comment Spec In Lab Ruby Daniel MD CHEMISTRY ORDERA CORBY Performing Organization Address [facility] Co de Phone Number [facility] [place] [address] * (ABNORMAL) Electrolytes panel (03/15/2017 6:50 AM EST) Sodium 142 135 - 145 mmol/L [facility] Potassium 3.2(L) 3.5 - 5.0 mmol/L [facility] Comment: Please note: ??Patients with WBC >100,000 may have falsely elevated Potassium levels. ??For accurate Potassium quantification in these patients send serum separator tube (gold top) for subsequent determinations. ??Contact the Clinical Chemistry Laboratory if there are any questions. Chloride 100 98 - 107 mmol/L [facility] Carbon Dioxide 28 22 - 31 mmol/L [facility] Anion Gap 14 5 - 15 mmol/L [facility] Blood specimen (specimen) 03/15/2017 6:50 AM EST 03/15/2017 6:56 AM EST Narrative Resulting Agency Comment Spec In Lab Ruby Daniel MD CHEMISTRY ORDERBill TAVAREZ Performing Organization Address [facility] Co de Phone Number [facility] [place] [address] * SCAN DOC: IMPLANTABLE DEVICES (03/15/2017 12:00 AM EST) Narrative 03/15/2017 12:00 AM EST Ordered by an unspecified provider. Scanning Provider MEDIA MGR SCAN EXT O RDR/RSLT * POCT urine (03/15/2017) POC Urine HCG Negative Negative - Negative POC Control Internal Controls Acceptable 03/15/2017 Ruby Daniel MD POINT OF CARE TE ST ORDERABLES * SCAN DOC: TRIAL COURT JUSTICE (03/15/2017 12:00 AM EST) Anatomical Region Laterality Modality Other Narrative 03/15/2017 12:00 AM EST Ordered by an unspecified provider. Scanning Provider MEDIA MGR SCAN EXT O RDR/RSLT documented in this encounter Visit Diagnoses Diagnosis Breast CA Malignant neoplasm of breast (female), unspecified site documented in this encounter Admitting Diagnoses Diagnosis Breast CA Malignant neoplasm of breast (female), unspecified site documented in this encounter Administered Medications Inactive Administered Medications - up to 3 most recent administrations Medication Order MAR Action Action Date Dose Rate Site acetaminophen (TYLENOL) tablet 1,000 mg 1,000 mg, Oral, ONCE, 1 dose, On Wed03/15/17 at 0630, Administer with SIP of H2O only., Day of Surgery (Day of Procedure), Routine Given 03/15/2017 6:16 AM EST 1,000 mg acetaminophen (TYLENOL) tablet 1,000 mg 1,000 mg, Oral, EVERY 8 HOURS SCHEDULED, First dose on Wed03/15/17 at 1400, Until Discontinued, Maximum total acetaminophen dose 4 grams per 24 hours., Routine Given 03/16/2017 5:14 AM EST 1,000 mg Given 03/15/2017 9:10 PM EST 1,000 mg Given 03/15/2017 2:01 PM EST 1,000 mg ceFAZolin (ANCEF) 1g in dextrose 5% 50mL 1 g, Intravenous, EVERY 8 HOURS, First dose on Wed03/15/17 at 1315, Until Discontinued, Administer over 30 Minutes, Recovery (Recovery-Hospital Unit), Indication for (Active or Suspected): Prophylaxis New Bag 03/16/2017 5:14 AM EST 1 g 100 mL/ hr New Bag 03/15/2017 9:10 PM EST 1 g 100 mL/hr docusate sodium (COLACE) capsule 100 mg 100 mg, Oral, 2 TIMES DAILY, First dose on Wed03/15/17 at 2100, Until Discontinued, Routine Given 03/16/2017 8:00 AM EST 100 mg Given 03/15/2017 9:10 PM EST 100 mg HYDROmorphone (DILAUDID) injection 0.2 mg 0.2 mg, Intravenous, EVERY 4 HOURS PRN, Starting on Wed03/15/17 at 1655, Until Wed03/16/17 at 1501, Pain, For pain that is not controlled on tylenol and oxycodone, Routine Given 03/15/2017 7:25 PM EST 0.2 mg HYDROmorphone (DILAUDID) syringe 0.2-0.4 mg 0.2-0.4 mg, Intravenous, EVERY 5 MIN PRN, Pain, Starting on Wed03/15/17 at 1301, Until Wed03/15/17 at 1625, For moderate pain (4-6) give: 0.2 mg every 5 minute prn For severe pain (7-10) give: 0.4 mg every 5 minutes prn Maximum dose: 4 mg per hour Hold for respiratory rate less than 10 per minute., PACU Recovery Given 03/15/2017 3:24 PM EST 0.4 mg Given 03/15/2017 2:17 PM EST 0.4 mg Given 03/15/2017 2:05 PM EST 0.4 mg ibuprofen (ADVIL;MOTRIN) tablet 600 mg 600 mg, Oral, EVERY 6 HOURS SCHEDULED, First dose on Wed03/16/17 at 0730, Until Discontinued, Administer orally with milk or food to minimize GI irritation. Maximum dose of 3200 mg from all sources in 24 hours, Routine Given 03/16/2017 12:27 PM EST 600 mg Given 03/16/2017 7:53 AM EST 600 mg Lactobacillus (BACID) tablet 1 tablet 1 tablet, Oral, DAILY, First dose on Wed03/15/17 at 1700, Until Discontinued, Routine Given 03/16/2017 8:00 AM EST 1 tablet Given 03/15/2017 9:11 PM EST 1 tablet ondansetron (ZOFRAN) injection 4 mg 4 mg, Intravenous, EVERY 8 HOURS PRN, Starting on Wed03/15/17 at 1640, Until Wed03/16/17 at 1501, Nausea, 4 mg, Oral, EVERY 8 HOURS PRN, Nausea, Vomiting If multiple antiemetics are ordered, use ondansetron first. May repeat once in 30 minutes if symptoms unrelieved. Given 03/15/2017 9:10 PM EST 4 mg oxyCODONE (ROXICODONE) immediate release tablet 5 mg 5 mg, Oral, EVERY 4 HOURS PRN, Starting on Wed03/15/17 at 1301, Until Wed03/15/17 at 1654, Pain, May repeat once after 30-60 minutes if pain unrelieved., Routine Given 03/15/2017 3:23 PM EST 5 mg Given 03/15/2017 2:01 PM EST 5 mg oxyCODONE (ROXICODONE) immediate release tablet 5-10 mg 5-10 mg, Oral, EVERY 4 HOURS PRN, Starting on Wed03/15/17 at 1653, Until Wed03/16/17 at 1501, Pain, For pain that is not controlled on tylenol 5mg for pain 1-7/10 10mg for pain +7/10, Routine Given 03/16/2017 12:28 PM EST 10 mg Given 03/16/2017 7:52 AM EST 10 mg Given 03/16/2017 3:38 AM EST 10 mg polyethylene glycol (MIRALAX) packet 17 g 17 g, Oral, DAILY, First dose on Wed03/15/17 at 1945, Until Discontinued, Routine Given 03/16/2017 8:00 AM EST 17 g Given 03/15/2017 9:10 PM EST 17 g sodium chloride 0.9 % flush 5 mL 5 mL, Intravenous, 2 TIMES DAILY, First dose on Wed03/15/17 at 2100, Until Discontinued, Recovery (Recovery-Hospital Unit), Routine Given 03/16/2017 8:00 AM EST 5 mLs Given 03/15/2017 9:00 PM EST 5 mLs sodium chloride 0.9% infusion 1,000 mL, at 100 mL/hr, Intravenous, CONTINUOUS, Starting on Wed03/15/17 at 1315, Until Wed03/16/17 at 1501, Recovery (Recovery-Hospital Unit) New Bag 03/16/2017 9:39 AM EST 1,000 mLs 100 mL/hr New Bag 03/15/2017 1:26 PM EST 1,000 mLs 100 mL/hr documented in this encounter Active and Recently Administered Medications Times are shown in EST. Scheduled Medication Order 03/14/2017 03/15/2017 03/16/2017 acetaminophen (TYLENOL) tablet 1,000 mg (COMPLETED) 1,000 mg, Oral, ONCE, 1 dose, On Wed03/15/17 at 0630, Administer with SIP of H2O only., Day of Surgery (Day of Procedure), Routine 0616 (Given - Provider: Crystal Copeland RN) acetaminophen (TYLENOL) tablet 1,000 mg 1,000 mg, Oral, EVERY 8 HOURS SCHEDULED, First dose on Wed03/15/17 at 1400, Until Discontinued, Maximum total acetaminophen dose 4 grams per 24 hours., Routine 1401 (Given - Provider: Lyric Watson RN)2109 (Given - Provider: Elodia Faustin RN) 05 (Given - Provider: Elodia Faustin RN) ceFAZolin (ANCEF) 1g in dextrose 5% 50mL 1 g, Intravenous, EVERY 8 HOURS, First dose on Wed03/15/17 at 1315, Until Discontinued, Administer over 30 Minutes, Recovery (Recovery-Hospital Unit), Indication for (Active or Suspected): Prophylaxis 1315 (Not Given - Provider: Lyric Watson RN - Reason: See comment - Comment: given 1116 in OR)2109 (New Bag - Provider: Elodia Faustin RN)2139 (Stopped - Provider: Elodia Faustin RN) 05 (New Bag - Provider: Elodia Faustin RN)0544 (Stopped - Provider: Elodia Faustin RN) ceFAZolin (ANCEF) 2g in dextrose 5% 100 mL (COMPLETED) 2 g, Intravenous, ONCE, 1 dose, On Wed03/15/17 at 0700, Administer over 30 Minutes, HOLD FOR OR, Indication for (Active or Suspected): Prophylaxis 0817 (Given - Provider: Moises Kim CRNA)1117 (Given - Provider: Moises Kim CRNA) docusate sodium (COLACE) capsule 100 mg 100 mg, Oral, 2 TIMES DAILY, First dose on Wed03/15/17 at 2100, Until Discontinued, Routine 2109 (Given - Provider: Elodia Faustin RN) 0800 (Given - Provider: Pooja Sánchez RN) ibuprofen (ADVIL;MOTRIN) tablet 600 mg 600 mg, Oral, EVERY 6 HOURS SCHEDULED, First dose on Wed03/16/17 at 0730, Until Discontinued, Administer orally with milk or food to minimize GI irritation. Maximum dose of 3200 mg from all sources in 24 hours, Routine 0753 (Given - Provid er: Pooja Sánchez RN)1227 (Given - Provider: Pooja Sánchez RN) Lactobacillus (BACID) tablet 1 tablet 1 tablet, Oral, DAILY, First dose on Wed03/15/17 at 1700, Until Discontinued, Routine 2110 (Given - Provider: Elodia Faustin, BECKY) 0800 (Given - Provider: Pooja Sánchez, BECKY) polyethylene glycol (MIRALAX) packet 17 g 17 g, Oral, DAILY, First dose on Wed03/15/17 at 1945, Until Discontinued, Routine 1944 (Not Given - Provider: Elodia Faustin RN - Reason: See comment - Comment: takes during the day)2109 (Given - Provider: Elodia Faustin RN) 0800 (Given - Provider: Pooja Sánchez, BECKY) sodium chloride 0.9 % flush 5 mL 5 mL, Intravenous, 2 TIMES DAILY, First dose on Wed03/15/17 at 2100, Until Discontinued, Recovery (Recovery-Hospital Unit), Routine 2099 (Given - Provider: Elodia Faustin RN) 0800 (Given - Provider: Pooja Sánchez, BECKY) Continuous Medication Order 03/14/2017 03/15/2017 03/16/2017 lactated Ringers infusion 1,000 mL (CANCELED) 1,000 mL, at 100 mL/hr, Intravenous, CONTINUOUS, Starting on Wed03/15/17 at 0630, Until Wed03/15/17 at 1625, Day of Surgery (Day of Procedure) 0753 (New Bag - Provider: Moises Kim CRNA)1243 (Stopped - Provider: Moises Kim CRNA) sodium chloride 0.9% infusion 1,000 mL, at 100 mL/hr, Intravenous, CONTINUOUS, Starting on Wed03/15/17 at 1315, Until Wed03/16/17 at 1501, Recovery (Recovery-Hospital Unit) 1326 (New Bag - Provider: Lyric Watson RN) 0939 (New Bag - Provider: Pooja Sánchez, BECKY) PRN Medication Order 03/14/2017 03/15/2017 03/16/2017 bacitracin injection (CANCELED) ONCE PRN, Starting on Wed03/15/17 at 0901, Until Wed03/16/17 at 1501, Intra-Operative (Intra-Procedure), Routine 0901 (Given - Provider: Ruby Daniel MD) bisacodyl (DULCOLAX) suppository 10 mg 10 mg, Rectal, DAILY PRN, Starting on Wed03/15/17 at 1640, Until Wed03/16/17 at 1501, Constipation, Administer if needed per patient's routine or if no bowel movement within 48 hours to achieve: 1) One bowel movement at least every 48 hours, AND 2) Without straining. If multiple bowel medications ordered, consider adding if docusate or milk of magnesia not sufficient., Routine ceFAZolin (ANCEF) injection (CANCELED) ONCE PRN, Starting on Wed03/15/17 at 0902, Until Wed03/16/17 at 1501, Intra-Operative (Intra-Procedure), Routine 09 (Given - Provider: Ruby Daniel MD) gentamicin (GARAMYCIN) injection (CANCELED) ONCE PRN, Starting on Wed03/15/17 at 0902, Until Wed03/16/17 at 1501, Intra-Operative (Intra-Procedure), Routine 09 (Given - Provider: Ruby Daniel MD) HYDROmorphone (DILAUDID) injection 0.2 mg 0.2 mg, Intravenous, EVERY 4 HOURS PRN, Starting on Wed03/15/17 at 1655, Until Wed03/16/17 at 1501, Pain, For pain that is not controlled on tylenol and oxycodone, Routine 1925 (Given - Provider: Elodia Faustin RN) HYDROmorphone (DILAUDID) syringe 0.2-0.4 mg (CANCELED) 0.2-0.4 mg, Intravenous, EVERY 5 MIN PRN, Pain, Starting on Wed03/15/17 at 1301, Until Wed03/15/17 at 1625, For moderate pain (4-6) give: 0.2 mg every 5 minute prn For severe pain (7-10) give: 0.4 mg every 5 minutes prn Maximum dose: 4 mg per hour Hold for respiratory rate less than 10 per minute., PACU Recovery 1310 (Given - Provider: Mandie Ryan RN)1318 (Given - Provider: Mandie Ryan RN)1323 (Given - Provider: Mandie Ryan RN)1331 (Given - Provider: Lyric Watson RN)1340 (Given - Provider: Lyric Watson, RN)1405 (Given - Provider: Lyric Watson, RN)1417 (Given - Provider: Lyric Watson RN)1524 (Given - Provider: Lyric Watson RN) isosulfan blue (LYMPHAZURIN) 1 % injection Soln (CANCELED) ONCE PRN, Starting on Wed03/15/17 at 0903, Until Wed03/16/17 at 1501, Intra-Operative (Intra-Procedure), Routine 902 (Given - Provider: Ruby Daniel MD) lidocaine (XYLOCAINE) 10 mg/mL (1 %) injection 3 mg 3 mg (0.3 mL), Subcutaneous, ONCE PRN, 1 dose, Starting on Wed03/15/17 at 1640, Until Wed03/16/17 at 1501, for discomfort with PIV insertion, Recovery (Recovery-Hospital Unit), Routine ondansetron (ZOFRAN) injection 4 mg 4 mg, Intravenous, EVERY 8 HOURS PRN, Starting on Wed03/15/17 at 1640, Until Wed03/16/17 at 1501, Nausea, 4 mg, Oral, EVERY 8 HOURS PRN, Nausea, Vomiting If multiple antiemetics are ordered, use ondansetron first. May repeat once in 30 minutes if symptoms unrelieved. 2109 (Given - Provider: Elodia Faustin RN) oxyCODONE (ROXICODONE) immediate release tablet 5 mg (CANCELED) 5 mg, Oral, EVERY 4 HOURS PRN, Starting on Wed03/15/17 at 1301, Until Wed03/15/17 at 1654, Pain, May repeat once after 30-60 minutes if pain unrelieved., Routine 1401 (Given - Provider: Lyric Watson RN)1523 (Given - Provider: Lyric Watson RN) oxyCODONE (ROXICODONE) immediate release tablet 5-10 mg 5-10 mg, Oral, EVERY 4 HOURS PRN, Starting on Wed03/15/17 at 1653, Until Wed03/16/17 at 1501, Pain, For pain that is not controlled on tylenol 5mg for pain 1-7/10 10mg for pain +7/10, Routine 181 (Given - Provider: Soumya Stephens RN)1927 (Given - Provider: Elodia Faustin, BECKY)2335 (Given - Provider: Elodia Faustin RN) 0338 (Given - Provider: Elodia Faustin RN)0752 (Given - Provider: Pooja Sánchez, BECKY)1228 (Given - Provider: Pooja Sánchez RN) prochlorperazine (COMPAZINE) injection 10 mg 10 mg, Intravenous, EVERY 6 HOURS PRN, Starting on Wed03/15/17 at 1640, Until Wed03/16/17 at 1501, Nausea, If multiple antiemetics are ordered, use ondansetron first. If ondansetron ineffective use prochlorperazine. , Routine sodium chloride 0.9 % flush 5-20 mL 5-20 mL, Intravenous, EVERY 1 MIN PRN, Starting on Wed03/15/17 at 1640, Until Wed03/16/17 at 1501, flush, Flush pertains to all indwelling lines. Flush per protocol found in the job aid using the link provided on this medication record., Recovery (Recovery-Hospital Unit), Routine documented in this encounter Care Teams Wood Heel Flap Trimmer Relationship Specialty Start Date End Date Radha Acuna MD [address] [place] [id number] PCP - General 08/07/11 documented as of this encounter
--- OUTSIDE RECORDS SUMMARY | 2024-04-07 16:40 | XMS_ITS | Encounter Summary ---
Author Organization [facility] [place] [address] Care Team Providers Care Matrix Supervisor Name Role Phone Radha Acuna MD Primary Care Provider [phone]- [phone] Reason for Visit * Reason Comments Follow Up Surgery expansion Encounter Details Date Type Department Care Team (Late st Contact Info) Description 04/28/2017 10:00 AM EST Office [place] [address] Frantz Martínez MD [facility] [place] [address] Invasive ductal carcinoma of right breast Social [...] Instructions * Patient Instructions* Mai Tan - 04/28/2017 10:00 AM EST Plan: Follow up 1 week Slowly resume normal activities documented in this encounter Progress Notes * Frantz Martínez MD - 04/28/2017 10:00 AM EST Plastic Surgery Post Op Note Reason for visit: F/U status post [...] needed. Symmetry surgery: n/a HPI: Pt reports she has been well. She is in agreement with Dr. Mcnamara that she is not desiringany radiation treatment. She reports being able to feel the edge of the new car get ready mechanic at her axilla. Shehas researched fat grafting in the setting of breast reconstruction. Examination: Patient is alert, conversant, comfortable, ambulating Flaps well perfused. NACs well perfused. Healthcare Specialist in good position, maintaining fill volume. Incisions intact. No collection, no erythema, no evidence of cellulitis. Procedure: Today, under sterile conditions, 50 ml of saline was instilled bilaterally to tissue expanders, for a total total of 255 ml bilaterally. Impression: Trina Frances is a 36 y.o. female who was seen today for follow-up after the above procedure. Please see the operative note for details. Expansion well tolerated. I discussed fat grafting from a reconstructive standpoint is warranted for contour improvements but is generally not recommended to re create a breast mound. We discussed she may slowly resume her activities at this time and has no restrictions on her activities. Plan: Follow up 1 week for possible expansion Slowly resume normal activities IKarin, am acting as scribe for Dr. Martínez. All work documented was performed by Dr. Martínez. ???I performed the above scribed service and agree with the accuracy of the note?? FRANTZ MARTÍNEZ MD documented in this encounter Plan of Treatment Upcoming Encounters Date Type Department Care Team (Late st Contact Info) Description 06/30/2024 4:30 PM EDT Office Visit H[place]ology [place] [address] Shilpi Gallegos MD [facility] DR HEMATOLOGY [place] [address] documented as of this encounter Visit Diagnoses Diagnosis Invasive ductal carcinoma of right breast documented in this encounter Care Teams Matrix Supervisor Relationship Specialty Start Date End Date Radha Acuna MD [address] [place] [address] [place] [address] PCP - General 08/07/11 documented as of this encounter
--- OUTSIDE RECORDS SUMMARY | 2024-04-07 16:40 | XMS_ITS | Encounter Summary ---
Author Organization [facility] Address [facility] [address] Care Team Providers Care Extrusion Manager Name Role Phone Radha Acuna MD Primary Care Provider [phone]- [phone] Reason for Visit * Reason Comments Follow Up Surgery discuuss next surger y Encounter Details Date Type Department Care Team (Late st Contact Info) Description 05/31/2017 10:15 AM EST [place] [address] Frantz Martínez MD [facility] [place] [address] Invasive ductal carcinoma of right breast Social [...] * Patient Instructions* Jodie York RN - 05/31/2017 10:15 AM EST You were given written and verbal preoperative instructions today. To prepare for your upcoming surgery, please review the Pre-Operative Instruction brochure that youwere given at today's appointment. Feel free to call our office [phone] if you have any questions or concerns. [...] documented in this encounter Progress Notes * Jodie York RN - 05/31/2017 10:15 AM EST Pre-Op Teaching for Surgery Surgery: tissue nutrition tech exchange for implants bilaterally Written and verbal pre-operative instructions were given and reviewed with patient: Patient was advised to perform the pre-op scrub, and to coordinate a ride home following surgery. Smoking status and medications were further reviewed to rule out/address current use of Nicotine, Coumadin, Plavix, Estrogen or Tamoxifen. Bactroban instructions reviewed. Photos were taken previously. Patient was instructed to call the clinic at with any questions or concerns prior tosurgery. * Frantz Martínez MD - 05/31/2017 10:15 AM EST Plastic Surgery Follow Up Note [...] in January. Began Herceptin Radiation: Not indicated. Anticipated exchange date: Scheduled for 06/09 Symmetry surgery: n/a HPI: Pt reports some episodic pain at her left axilla. She brings a list of questions about her upcoming surgery. She is interested in increasing her right breast volume with an additional expansion. Examination: Patient is alert, conversant, comfortable, ambulating Good volume symmetry The R nipple is slightly superior to the left. The incisions are wll healed. No fluid collections. There is midline separation of the breasts. Impression: Trina Frances is a 36 y.o. female who was seen today for follow-up after the above procedure. Please see the operative note for details. Expansion volume remains at 275mL, I discussed potential for a 25mL expansion but after further discussion she deferred this. We discussed her planned surgery and expected recovery, including placement of the implants via the same incision. I was clear that she will need to limit her activities for several weeks to prevent a serious complication; and we discussed approximately 3 weeks off work. She was shown implant styles today, including roundand shaped devices, and we reviewed advantages and disadvantages of both. With a shaped implant there is risk of rotation of the device, higher incidence of KYLE ALCL, but she may notice a more natural result. A round implant may cause her superior pole hollowing to be more prominent, but tends to be a softer device. I discussed the risks of ALCL or silicone granuloma remains extremely small. She was given the [employer] website as reference for our discussion on KYLE-ALCL.. We discussed potential risks and complications which include but are not limited to: Pain, bleeding, infection, scarring, asymmetry, hematoma, seroma, poor cosmetic outcome, failure ofprocedure, possible need for revision, damage to adjacent structures. Plan: Proceed with surgery as planned 06/09 Pt given [employer] website I, Karin Tan, am acting as scribe for Dr. Martínez. All work documented was performed by Dr. Martínez. ???I performed the above scribed service and agree with the accuracy of the note?? FRANTZ MARTÍNEZ MD documented in this encounter Plan of Treatment Upcoming Encounters Date Type Department Care Team (Late st Contact Info) Description 06/30/2024 4:30 PM EDT Office Visit [place] [address] Shilpi Gallegos MD [facility] [place] [address] documented as of this encounter Visit Diagnoses Diagnosis Invasive ductal carcinoma of right breast documented in this encounter Care Teams Extrusion Manager Relationship Specialty Start Date End Date Radha Acuna MD [address] [place] [address] [place] [address] PCP - General 08/07/11 documented as of this encounter
--- OUTSIDE RECORDS SUMMARY | 2024-04-07 16:40 | XMS_ITS | Encounter Summary ---
[place] [address] Care Team Providers Care Chemical Process Analyst Name Role Phone Radha Acuna MD Primary Care Provider +1- [phone] Reason for Visit * Auth/Cert Specialty Diagnoses / Procedures Referred By Clara cisneros Referred To Contact Diagnoses arborist replacement Procedures PRO REPLACE TISSUE SALES REPRESENTATIVE PRINTING SUPPLIES TISSUE SALES REPRESENTATIVE PRINTING SUPPLIES REPLACEMENT, WITH PERMANENT PROSTHESIS, MICHAEL (WRVU 8.01) Referral ID Status Reason Start Date Expiration Date Visits Re quested Visits Authorized [id number] 1 1 Encounter Details Date Type Department Care Team (Late st Contact Info) Description 06/09/2017 1:36 PM EST Anesthesia Event [place] [address] Valentín Álvarez MD [facility] [place] [address] Odessa Griffith MD Anesthesia Record Procedure Summary Procedure Name Responsible Anesthesiologist Anesthesia Start Time Anesthesia Stop Time TISSUE SALES REPRESENTATIVE PRINTING SUPPLIES REPLACEMENT, WITH PERMANENT PROSTHESIS, MICHAEL (WRVU 7.49) (Bilateral: Breast) Valentín Álvarez MD 06/09/17 1336 06/09/17 1519 Events Date Time Event Comment 06/09/2017 1302 1336 AN Verify 1336 Start 1336 An Start Data 1337 An Induction 1339 An Intubation 1341 Anesthesia Ready 1358 Break/Relief In HALLIE A G ILCHREST, DISTRIBUTION TECHNICIAN 1412 Break/Relief Out 1506 an stop data 1517 Recovery or ICU Handoff Johana ent care was transferred to the destination unit staff after review of the patient's medical history, current anesthetic/surgical status and plan, according to the Provider Handoff Checklist. 1519 Stop Meds Name Total Midazolam 1 mg fentaNYL 125 mcg IV Lidocaine 50 mg Propofol 200 mg Propofol INF 361.08 mg Dexmedetomidine 8 mcg Dexamethasone 8 mg Ondansetron 8 mg ePHEDrine 15 mg ceFAZolin 2 g lactated Ringers infusion 1,000 mL 1,500 mL * Agents Name O2 Air N2O Sevoflurane (et) * Blood No blood administrations on file. Lines, Drains, and Airways Type Details Placement Removal Drain/Device Site 03/15/17; 1153; Left ; breast; (15 fr drain); Dr. Frantz Zurita 03/15/17 1153 by Shu March, BECKY Drain/Device Site 03/15/17; 1155; Righ t; breast; (15 fr drain); Dr. Frantz Zurita 03/15/17 1155 by Shu March, BECKY (RETIRED) Implanted Port - Single Lumen (non-apheresis) 09/29/16; 0947; infraclavicular fossa, left; power injectable port; superior vena cava; Dr. Posada; Vaccess CT low-profile Lot #[id number]; 12/16/17; 1444 09/29/16 0947 by Diya Brown, BECKY 12/16/17 1444 by Cj Louie RN Incision 09/29/16; 1011; ches t; horizontal (mediport insertion site); 12/08/21 (LDA cleanup utility RA#[id number]); 1715 (LDA cleanup utility RA#[id number]) 09/29/16 1011 by Diya Brown RN 12/08/21 1715 by Shannon Vickers Incision 10/02/16; neck; laparoscopic puncture; 12/08/21 (LDA cleanup utility RA#[id number]); 1715 (LDA cleanup utility RA#[id number]) 10/02/16 0000 by Eunice Cao RN 12/08/21 1715 by Shannon Vickers Incision 03/15/17; 0858; (anca ast); 12/08/21 (LDA cleanup utility RA#[id number]); 1715 (LDA cleanup utility RA#[id number]) 03/15/17 0858 by Robert Corral RN 12/08/21 1715 by Shannon Vickers (RETIRED) Peripheral IV Line - Single Lumen 06/09/17; 1240; median cubital vein (antecubital fossa), left; 20 gauge; intradermal injection, tolerated well; 06/09/17; 1630 06/09/17 1240 by Joselyn Lim RN 06/09/17 1630 by Neisha Angel RN Supraglottic Mask Ventilation: No t Attempted (0); LMA Type: iGel; LMA Size: 3; Inserted by: Samir DISTRIBUTION TECHNICIAN; Removal Date: 06/09/17; Removal Time: 1524 06/09/17 1339 by Sarahi Dawson DISTRIBUTION TECHNICIAN 06/09/17 1524 by Neisha Angel RN Incision 06/09/17; 1355; sami st; 12/08/21 (LDA cleanup utility RA#[id number]); 1715 (LDA cleanup utility RA#[id number]) 06/09/17 1355 by Lula Diehl RN 12/08/21 1715 by Shannon Vickers Incision 06/09/17; 1403; sami st; 12/08/21 (LDA cleanup utility RA#[id number]); 1715 (LDA cleanup utility RA#[id number]) 06/09/17 1403 by Lula Diehl RN 12/08/21 1715 by Shannon Vickers documented in this encounter Social History Tobacco Use Types Packs/Day [...] PM EDT documented as of this encounter OR Notes * Anesthesia Postprocedure Evaluation - Valentín Álvarez MD - 06/09/2017 4:43 PM EST [facility] Department of Anesthesiology Post-procedure Note Patient: Trina Frances Procedure Summary Date Anesthesia Start Anesthesia Stop Room / Location 06/09/17 1336 1519 [facility] OR / [facility] Procedure Diagnosis Surgeon Responsible Provider TISSUE SALES REPRESENTATIVE PRINTING SUPPLIES REPLACEMENT, WITH PERMANENT PROSTHESIS, MICHAEL (WRVU 8.01) (Bilateral Breast); BREAST,CAPSULOTOMY, OPEN PERIPROSTHETIC -MICHAEL (WRVU 9.17) (Bilateral Breast) (arborist replacement) Frantz Zurita MD Nguyen, Tung T, MD All Anesthesia Providers: Anesthesiologist: Valentín Álvarez MD DISTRIBUTION TECHNICIAN: Sarahi Dawson CRNA Most Recent Vitals: 06/09/17 1530 BP: 129/68 Pulse: Resp: Temp: SpO2: 98% Pain Patient Location: PACU/SDP Level of Consciousness: Awake and Alert Pain Management: Satisfactory Analgesia PONV: None Cardiovascular Status: At Baseline Respiratory Status: At Baseline Postoperative Fluid Status: Intravascular EUvolemia Possible Anesthetic Complications: NONE apparent at time of evaluation Final Primary Anesthesia Type: General (The anesthetic type performed was the same as planned.) Comments: * Anesthesia Preprocedure Evaluation - Valentín Álvarez MD - 06/09/2017 8:08 AM EST Pre-Anesthesia Evaluation for: Trina Frances a 36 y.o. female. Procedure(s): TISSUE SALES REPRESENTATIVE PRINTING SUPPLIES REPLACEMENT, WITH PERMANENT PROSTHESIS, MICHAEL (WRVU 8.01) Patient Active Problem List Diagnosis ??? Breast swelling ??? Surgery follow-up ??? Chronic midline thoracic back pain Started during chemotherapy, intermittent mid-scapular pain causing SOB. This resolved after completion of chemotherapy but after surgery pt notes difficulty lying flat dueto pain in the same location. Unable to sleep as she usually sleeps with her left arm up and over her head which she is unable to do. Feels best when sitting up. ??? Breast CA ??? Medication management ??? Change in bowel habits ??? 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 On 09/11/16, she underwent a mammogram followed by ultrasound showing 2 right anca ast masses and right axilla node 1.2cm. Biopsy showed invasive ductal carcinoma, grade 2 with DCIS.HER2+ (FISH HER2:CEP-17 = 10), ER+/UT+ (11-90%). A right axilla node biopsy was [...] IDCA. Focal DCIS high grade, no LVI. [id number] 09/11/16- MAMMO BREAST US LIMITED BILATERAL, MAMMO [...] cancer cells with immunostaining, Stain Intensity Moderate. UT immunoreactivity: ??Positive 11-90% cancer cells with immunostaining, Stain Intensity Moderate to focal Strong. [id number] FISH is amplified. B - ??Needle biopsies: [...] isto Treated DCIS, 3 mm) Lymph Nodes ?Surprise Lymph Nodes: ?? Surprise lymph node biopsy performed ?Number of Surprise Nodes Examined: ?8 ?Lymph Node Involvement: ?? None identified In summary, Trina Frances is a 36 yo woman with right breast IDC, ER/UT+, [id number] Initial imaging suggested a disease process spanning ~7cm (though MRI and PET scan shows 2 discrete lesions measuring ~13mm and 1 cm). She was treated with neoadjuvant chemotherapy followed by mastectomy with residual microinvastion and 0 of 8 LNs involved. pT1mi ??pN0 ??? IgA deficiency Past Medical History: Diagnosis Date ??? Environmental [...] 3.65) performed by Ajit Zurita MD at [facility] OR ??? PRO BREAST RECONSTRUC W TISS EXPANDR Right 03/15/2017 BREAST RECONSTRUCTION, IMMEDIATE OR DELAYED, WITH TISSUE SALES REPRESENTATIVE PRINTING SUPPLIES INCLUDING SUBSEQUENT EXPANSION-MICHAEL (WRVU 18.5) performed by Frantz Zurita MD at [facility] OR ??? PRO BX/REMV, LYMPH NODE, DEEP AXILL Right 03/15/2017 BIOPSY OR EXCISION OF LYMPH NODE(S), OPEN, DEEP AXILLARY NODE(S) (WRVU 6.43) performed by Ruby Negro MD at [facility] OR ??? PRO INTRAOP SENTINEL LYMPH ID W/DYE INJECTION Right 03/15/2017 INTRAOPERATIVE ID (MAPPING) SENTINEL LYMPH NODE,INCLUDES INJECTION (WRVU 2.5) performed by Ruby Negro MD at [facility] OR ??? PRO MASTECTOMY, SIMPLE, COMPLETE Bilateral 03/15/2017 MASTECTOMY, SIMPLE, COMPLETE-MICHAEL (WRVU 15.85) performed by Ruby Negro MD at [facility] OR ??? TONSILLECTOMY Social History Substance Use Topics ??? Smoking status: Never Smoker ??? Smokeless tobacco: Never Used ??? Alcohol use Yes Comment: occasiona History Drug Use No Allergies Allergen Reactions ??? Aspirin Hives ??? Hydrocodone-Acetaminophen Hives ??? Tegaderm [Transparent Dressings] Dermatitis Use mepilex ??? Tioconazole Medications: MAR and/or home medications have been reviewed. Physical Exam: There were no vitals filed for this visit. There is no height or weight on file to calculate BMI. Airway Assessment: Mallampati: I TM distance: >3 FB Neck ROM: full Cardiovascular Assessment: Rhythm: regular Rate: normal Pulmonary Assessment: breath sounds clear to auscultation Dental Assessment: - normal exam Misc Assessment: Patient is wearing No contact(s). IV access: Peripheral line Anesthesia Plan: ASA 2 general, with a(n) intravenous induction 36yo female pmh of breast ca, bilateral mastectomy, presenting for arborist replacement Plan for GA, LMA Region - Other Informed Consent: Anesthetic plan and risks discussed with patient and spouse. PAT Staff Note documented in this encounter Plan of Treatment Upcoming Encounters Date Type Department Care Team (Late st Contact Info) Description 06/30/2024 4:30 PM EDT Office Visit Hematology [place] [address] Shilpi Gallegos MD [facility] DR [place]EMATOLOG[place] [address] documented as of this encounter Visit Diagnoses Not on filedocumented in this encounter Administered Medications Inactive Administered Medications - up to 3 most recent administrations Medication Order MAR Action Action Date Dose Rate Site ceFAZolin (ANCEF) 1g in dextrose 5% 50mL PRN, Starting on Wed06/09/17 at 1341, Until Wed06/09/17 at 1545, Administer over 30 Minutes, Anesthesia Intra-op Given 06/09/2017 1:41 PM EST 2 g dexamethasone (DECADRON) injection PRN, Starting on Wed06/09/17 at 1352, Until Wed06/09/17 at 1545, Anesthesia Intra-op, Routine Given 06/09/2017 1:52 PM EST 8 mg dexmedetomidine (PRECEDEX) injection PRN, Starting on Wed06/09/17 at 1341, Until Wed06/09/17 at 1545, Anesthesia Intra-op, Routine Given 06/09/2017 1:47 PM EST 4 mcg Given 06/09/2017 1:41 PM EST 4 mcg ePHEDrine 5 mg/mL multi-dose injection PRN, Starting on Wed06/09/17 at 1413, Until Wed06/09/17 at 1545, Anesthesia Intra-op, Routine Given 06/09/2017 2:52 PM EST 5 mg Given 06/09/2017 2:24 PM EST 5 mg Given 06/09/2017 2:13 PM EST 5 mg fentaNYL 50 mcg/mL multi-dose injection PRN, Starting on Wed06/09/17 at 1334, Until Wed06/09/17 at 1545, Pain, Anesthesia Intra-op, Routine Given 06/09/2017 2:44 PM EST 25 mcg Given 06/09/2017 1:54 PM EST 25 mcg Given 06/09/2017 1:48 PM EST 25 mcg lactated Ringers infusion 1,000 mL 1,000 mL, at 100 mL/hr, Intravenous, CONTINUOUS, Starting on Wed06/09/17 at 1230, Until Wed06/09/17 at 1649, Day of Surgery (Day of Procedure) New Bag 06/09/2017 2:15 PM EST New Bag 06/09/2017 1:00 PM EST 1,000 mLs 100 mL/hr lidocaine (PF) (XYLOCAINE) 100 mg/5 mL (2 %) injection PRN, Starting on Wed06/09/17 at 1338, Until Wed06/09/17 at 1545, Anesthesia Intra-op, Routine Given 06/09/2017 1:38 PM EST 50 mg midazolam (PF) (VERSED) 1 mg/mL multi-dose injection PRN, Starting on Wed06/09/17 at 1331, Until Wed06/09/17 at 1545, Sleep, Anesthesia Intra-op, Routine Given 06/09/2017 1:31 PM EST 1 mg ondansetron (ZOFRAN) injection PRN, Starting on Wed06/09/17 at 1505, Until Wed06/09/17 at 1546, Nausea, Anesthesia Intra-op, Routine Given 06/09/2017 3:05 PM EST 8 mg propofol (DIPRIVAN) 10 mg/mL bolus injection (Anesthesia) PRN, Starting on Wed06/09/17 at 1338, Until Wed06/09/17 at 1545, Anesthesia Intra-op Given 06/09/2017 1:45 PM EST 20 mg Given 06/09/2017 1:38 PM EST 180 mg propofol (DIPRIVAN) infusion CONTINUOUS PRN, Starting on Wed06/09/17 at 1339, Until 2/28/18 at 1545, Anesthesia Intra-op, Routine Rate/Dose Change 06/09/2017 2:15 PM EST 50 mcg/kg/min 15.9 mL/hr New Bag 06/09/2017 1:39 PM EST 100 mcg/kg/min 31.9 mL/h r documented in this encounter Care Teams Chemical Process Analyst Relationship Specialty Start Date End Date Radha Acuna MD [address] [place] [address] [place] [address] PCP - General 08/07/11 documented as of this encounter
--- OUTSIDE RECORDS SUMMARY | 2024-04-07 16:40 | XMS_ITS | Encounter Summary ---
[place] [address] Care Team Providers Care Ad Terminal Makeup Operator Name Role Phone Radha Acuna MD Primary Care Provider +1- [phone] Reason for Referral * Diagnostic Test (Routine) - Closed Specialty Diagnoses / Procedures Referred By Clara cisneros Referred To Contact Radiology Diagnoses Malignant neoplasm of right female breast, unspecified estrogen receptor status, unspecified site of breast Procedures NM [place] Node Injection Breast wo Imaging Ruby Negro MD [facility] [place] [address] [place] [address] Referral ID Status Reason Start Date Expiration Date V isits Requested Visits Authorized [id number] Closed Specialty Service Requested 02/10/2017 02/10/2018 1 1 Reason for Visit * Auth/Cert Specialty Diagnoses / Procedures Referred By Clara cisneros Referred To Contact Diagnoses Breast cancer, right [...] Expiration Date Visits Re quested Visits Authorized [id number] 1 1 Encounter Details Date Type Department Care Team (Late st Contact Info) Description 03/15/2017 7:00 AM EST - 03/15/2017 11:59 PM [facility] Hospital [place] [address] Ruby Negro MD Malignant neoplasm of right female breast, unspecified estrogen receptor status, unspecified site of breast Discharge Disposition: Home Social History Tobacco [...] tylenol and NSAIDs 24 tablet 03/16/2017 03/24/2017 cephalexin (KEFLEX) 500 mg Tablet Take 1 tablet by mouth 4 times daily for 10 days. To take while drains are in 40 tablet 1 03/16/2017 03/16/2017 polyethylene glycol (MIRALAX) 17 gram Powder in Packet Take 17 g by mouth daily as needed. 09/19/2019 docusate sodium (COLACE) 100 mg Capsule Take 100 mg by mouth daily. 09/19/2019 potassium chloride 20 mEq Tablet Sustained Release Take 1 tablet by mouth daily. 30 tablet 3 12/08/2016 03/24/2017 fluconazole (DIFLUCAN) 100 mg Tablet Take 100 mg by mouth daily. 03/16/2017 lidocaine-prilocaine (EMLA) Cream Apply small amount of [...] EDT Office Visit Hematology [place] [address] Shilpi Gallegos MD [facility] [place] [address] documented as of this encounter Procedures Procedure Name Priority Date/Time Associated Diagnosis Comments NM SENTINEL NODE INJECTION BREAST WITHOUT IMAGING Routine 03/15/2017 7:35 AM EST Malignant neoplasm of right female breast, unspecified estrogen receptor status, unspecified site of breast documented in this encounter Results * NM [place] Node Injection Breast wo Imaging (03/15/2017 7:35 AM EST) Anatomical Region Laterality Modality Nuclear Medicine Impressions 03/15/2017 1:35 PM EST [place] node injections performed without complication. Narrative 03/15/2017 1:35 PM EST EXAMINATION: NM SENTINEL NODE INJECTION BREAST WO IMAGING CLINICAL HISTORY: please inject right breast cancer for lymphatic mapping TECHNIQUE: Technetium-99m filtered sulfur colloid was administered in divided doses totaling 1.6 mCi in the right breast. COMPARISON: None FINDINGS: No imaging was performed. The patient left the department in good condition. Procedure Note Best Hernandez MD - 03/15/2017 EXAMINATION: NM SENTINEL NODE INJECTION BREAST WO IMAGING CLINICAL HISTORY: please inject right breast cancer for lymphaticmapping TECHNIQUE: Technetium-99m filtered sulfur colloid was administered individed doses totaling 1.6 mCi in the right breast. COMPARISON: None FINDINGS: No imaging was performed. The patient left the department ingood condition. IMPRESSION [place] node injections performed without complication. Ruby Daniel MD IMG NM ORDERABLE S documented in this encounter Visit Diagnoses Diagnosis Malignant neoplasm of right female breast, unspecified estrogen receptor status, unspecified site of breast documented in this encounter Administered Medications Inactive Administered Medications - up to 3 most recent administrations Medication Order MAR Action Action Date Dose Rate Site technetium (Tc-99m) sulfur colloid injection 1.61 mCi 1.61 mCi, Intradermal, ONCE PRN, 1 dose, Starting on Wed03/15/17 at 0720, Until Wed03/15/17 at 0720, Per Protocol, INJ: R-BREAST, SUBCU., Routine Given 03/15/2017 7:20 AM EST 1.61 mCi documented in this encounter Care Teams Ad Terminal Makeup Operator Relationship Specialty Start Date End Date Radha Acuna MD [address] [place] [id number] PCP - General 08/07/11 documented as of this encounter
--- OUTSIDE RECORDS SUMMARY | 2024-04-07 16:40 | XMS_ITS | Encounter Summary ---
Author Organization [facility] [place] [address] Care Team Providers Care Cushion Mat Maker Name Role Phone Radha Acuna MD Primary Care Provider +1- [phone] Reason for Visit * Reason Comments Radiation Treatment * Consultation (Routine) - Closed Specialty Diagnoses / Procedures Referred By Clara cisneros Referred To Contact Radiation Oncology Diagnoses Malignant neoplasm of upper-outer quadrant of right breast in female, estrogen receptor positive Ruby Negro MD [facility] [place] [address] [facility] [place] [address] Referral ID Status Reason Start Date Expiration Date V isits Requested Visits Authorized [id number] Closed Consult, Test & Treat 03/31/2017 03/31/2018 1 1 Encounter Details Date Type Department Care Team (Late st Contact Info) Description 04/21/2017 8:00 AM EST Office Visit Hematology [place] [address] Maria Del Rosario Finn MD [facility] [place] [address] Invasive ductal carcinoma of right breast Social [...] Sign Reading Time Taken Comments Blood Pressure 119/71 04/21/2017 8:15 AM EST Pulse 64 04/21/2017 8:15 AM EST Temperature 36.5 ??C (97.7 ??F) 04/21/2017 8:15 AM ES T Respiratory Rate 16 04/21/2017 8:15 AM EST Oxygen Saturation 100% 04/21/2017 8:15 AM EST Inhaled Oxygen Concentration - - Weight 51.3 kg (113 lb) 04/21/2017 8:15 AM EST Height 154.8 cm (5' 0.95) 04/21/2017 8:15 AM ES T Body Mass Index 21.39 04/21/2017 8:15 AM EST documented in this encounter Progress Notes * Sandra Julian RN - 04/21/2017 8:00 AM EST RADIATION ONCOLOGY NURSING INITIAL NURSING ASSESSMENT IDENTIFICATION: Trina Frances is a 36 y.o. year-old female with right breast invasive ductal carcinoma, grade 2 with DCIS. ??HER2+ (FISH HER2:CEP-17 = 10), ER+/DE+ (11-90%). PRESENTING SYMPTOMS/CHIEF COMPLAINT: 03/15/17 bilateral mastectomy with expanders Any collagen vascular diseases: No Menarche age: 14 Any oral contraceptive use: yes 10 years Currently : No history: G 2 P 2 Age at 1st delivery: 28 Breast feeding: yes Menopause age: LMP October 2016 Any hormone therapy: No Previous breast biopsies: No ROM after surgery: Good Lymphedema post-surgery: No Any new bone pain: Back and neck shoulders REVIEW OF SYSTEMS: Review of Systems Constitutional: Positive for unexpected weight change (weight loss during chemo 12 lbs). HENT: Positive for postnasal drip and sinus pressure. Eyes: Positive for visual disturbance (contacts). Respiratory: Negative. Cardiovascular: Negative. Gastrointestinal: Positive for constipation. Endocrine: Negative. Genitourinary: Negative. Musculoskeletal: Negative. Skin: Positive for wound (healing incsion on bilateral breast). Allergic/Immunologic: Positive for environmental allergies and food allergies (gluten and dariy). Neurological: Positive for numbness (improving numbess in fengers) and headaches (mirgraines). Hematological: Negative. Psychiatric/Behavioral: Positive for sleep disturbance. IN THE PAST 12 MONTHS HAVE YOU: Fallen more than one time? No Injured yourself as result of the fall? No Experienced difficulty with walking/problems with balance? No Do you use any assistive devices? /NO Stay Independent Any Implanted Devices/Hardware: Mediport left chest If yes please put alert in ARIA patient summary Prior Radiotherapy: No Prior Chemotherapy: Yes Drug(s): ??TCH-P x 6 cycles last 01/2017 Physician/Location: Date of last treatment: Dr Gallegos Prior Hormone Therapy: No RADIOLOGY SAFETY QUESTIONS REVIEWED: If applicable MRICTSAFETYQUESTIONS LEARNING ASSESSMENT REVIEWED: Yes ADVANCED DIRECTIVE: No PAIN ASSESSMENT: 0] out of 10 *eD-H Adult PCS Flow Sheet if 4 or above SOCIAL ASSESSMENT: See ED social assessment information entered. Support Systems: Rudi for 4 years Juan Daniel Barriers to treatment: Patient lives in [facility] Referrals/Interventions: None at this time RADIATION SPECIFIC TEACHING: Yes [facility]iation [facility] and You Site specific teaching : Other: PLAN: New patient consult of Dr Finn * Maria Del Rosario Finn MD - 04/21/2017 8:00 AM EST Images from the original note were not included. Subjective: Trina Frances is a 36 y.o. female who [facility] the request of Dr. Ruby Negro V regarding breast cancer. Patient Active Problem List Diagnosis Date Noted ??? Surgery follow-up 03/31/2017 ??? Chronic midline thoracic back pain 03/31/2017 ??? Breast CA 03/15/2017 ??? Medication management 01/26/2017 ??? Drug-induced hypokalemia 12/08/2016 ??? Change in bowel habits 12/08/2016 ??? 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 Drug-induced anemia 11/27/2016 ??? Invasive ductal carcinoma of right breast 09/22/2016 ??? 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 On 09/11/16, she underwent a mammogram followed by ultrasound showing 2 right anca ast masses and right axilla node 1.2cm. Biopsy showed invasive ductal carcinoma, grade 2 with DCIS.HER2+ (FISH HER2:CEP-17 = 10), ER+/DE+ (11-90%). A right axilla node biopsy was [...] IDCA. Focal DCIS high grade, no LVI. [id number] 09/11/16- MAMMO BREAST US LIMITED BILATERAL, MAMMO [...] immunostaining, Stain Intensity Moderate to focal Strong. [id number] FISH is amplified. B - ??Needle biopsies: [...] isto Treated DCIS, 3 mm) Lymph Nodes ?[place] Lymph Nodes: ?? [place] lymph node biopsy performed ?Number of [place] Nodes Examined: ?8 ?Lymph Node Involvement: ?? None identified In summary, Trina Frances is a 36 yo woman with right breast IDC, ER/DE+, [id number]+. Initial imaging suggested a disease process spanning ~7cm (though MRI and PET scan shows 2 discrete lesions measuring ~13mm and 1 cm). She was treated with neoadjuvant chemotherapy followed by mastectomy with residual microinvastion and 0 of 8 LNs involved. pT1mi ??pN0. Tissue expanders in place. She presents today with the following associated signs of symptoms of her breast cancer: She is recovering well from surgery She has no lymphedema She has good arm mobility She has back, neck and shoulder pain Review of Systems: Please see accompanying nurse note with complete ROS. I reviewed and agree with documentation. Contraindications to radiotherapy: NO: YES: Collagen Vascular Disease x x Prior Radiotherapy x Diffuse Microcalcifications n/a Breast Cancer risk factors: History Age at delivery of first child 28 yo Breast fed yes Oral contraceptive use 10 years Menarche Age 14 yo Menopause Age Pre-menopausal, October 2016 LMP Hormone replacement therapy no Family history of breast cancer no Previous Breast Biopsy no Past Medical History: Diagnosis Date ??? Environmental [...] BREAST RECONSTRUCTION, IMMEDIATE OR DELAYED, WITH TISSUE COMPUTERIZED MACHINE FABRIC CUTTER INCLUDING SUBSEQUENT EXPANSION-MICHAEL (WRVU 18.5) performed by Frantz Zurita MD at [facility] OR ??? PRO BX/REMV, LYMPH NODE, DEEP AXILL Right 03/15/2017 BIOPSY OR EXCISION OF LYMPH NODE(S), OPEN, DEEP AXILLARY NODE(S) (WRVU 6.43) performed by Ruby Negro MD at [facility] OR ??? PRO INTRAOP SENTINEL LYMPH ID W/DYE INJECTION Right 03/15/2017 INTRAOPERATIVE ID (MAPPING) SENTINEL LYMPH NODE,INCLUDES INJECTION (WRVU 2.5) performed by Ruby Negro MD at [facility] MAIN OR ??? PRO MASTECTOMY, SIMPLE, COMPLETE Bilateral 03/15/2017 MASTECTOMY, SIMPLE, COMPLETE-MICHAEL (WRVU 15.85) performed by Ruby Negro MD at [facility] MAIN OR ??? TONSILLECTOMY Social History Substance Use Topics ??? Smoking status: Never Smoker ??? Smokeless tobacco: Never Used ??? Alcohol use Yes Comment: occasiona Family History Problem Relation Age of Onset ??? Myocardial Infarction Father 51 sudden ??? Autoimmune Disorder Sister vitiligo ??? Lymphoma Maternal Aunt ??? Myocardial Infarction Paternal Grandfather ??? Breast Cancer Neg Hx ??? Ovarian Cancer Neg Hx Physical Examination: Vitals: 04/21/17 0815 BP: 119/71 Patient Position: Sitting Pulse: 64 Resp: 16 Temp: 36.5 ??C (97.7 ??F) TempSrc: Temporal SpO2: 100% Weight: 51.3 kg (113 lb) Height: 154.8 cm (5' 0.95) Physical Exam Constitutional: She is oriented to person, place, and time. She appears well- developed and well-nourished. No distress. HENT: Head: Normocephalic and atraumatic. Mouth/Throat: Oropharynx is clear and moist. No oropharyngeal exudate. Eyes: Conjunctivae and EOM are normal. Right eye exhibits no discharge. Left eye exhibits no discharge. No scleral icterus. Neck: Normal range of motion. Neck supple. No JVD present. No tracheal deviation present. No thyromegaly present. Cardiovascular: Normal rate, regular rhythm and normal heart sounds. Exam reveals no gallop and no friction rub. No murmur heard. Pulmonary/Chest: Effort normal and breath sounds normal. No stridor. No respiratory distress. She has no wheezes. She has no rales. Abdominal: Soft. Bowel sounds are normal. She exhibits no distension. There is no tenderness. Thereis no rebound. Musculoskeletal: Normal range of motion. She exhibits no edema, tenderness or deformity. Lymphadenopathy: She has no cervical adenopathy. She has no axillary adenopathy. Neurological: She is alert and oriented to person, place, and time. Nl strength and sensation B UE Skin: Skin is warm and dry. No rash noted. She is not diaphoretic. No erythema. No pallor. Psychiatric: She has a normal mood and affect. Her behavior is normal. Judgment and thought contentnormal. Assessment: In summary, Trina Frances is a 36 yo woman with right breast IDC, ER/DE+, [id number]+. Initial imaging suggested a disease process spanning ~7cm (though MRI and PET scan shows 2 discrete lesions measuring ~13mm and 1 cm). Initial biopsy showed intermediate grade dz and no ALI. She was treated with neoadjuvant chemotherapy followed by mastectomy with residual microinvasion and 0 of 8 LNs involved. pT1mi ??pN0 Note -Our pathologist reports that there was no ALI in the pre-neoadjuvant biopsy -I will refer Trina to [facility] for a second opinion Plan: Trina Frances is referred for consideration of radiotherapy after mastectomy. We had a long discussion about the indications for post-mastectomy radiation and how response to neoadjuvant chemotherapy influences these recommendations. Specifically, there is good evidence for recommending radiation after mastectomy if there is LN positivity and/or a tumor greater than 5 cm. In Trina's case, she has no evidence of jose enrique involvement, but initial imaging suggested the extent of the tumor process could be ~7cm. We then discussed that neoadjuvant chemotherapy gives us additional information, I.e. Response of tumor to chemotherapy, but that we do not get initial pathologic staging. We reviewed Trina'sMRI and PET scan in TB and felt that it was possible that much of that 7cm process was DCIS (or a benign process) and the areas of invasive tumor could have been smaller, I.e T1 tumors). The pathologist noted that in the 7 cm span, there was no treatment effect seen after neoadjuvant chemotherapy. As for tumor response to neoadjuvant chemotherapy, there was a good response, but not a pCR. I explained to Trina that she has several factors that are higher risk for a LRR, I.e. Young age and less than pCR to neoadjuvant chemotherapy. However, her tumor was not high grade, there was no ALI and she has further effective systemic therapies (she will finish a year of herceptin and 5-10 years of endocrine therapy). Overall, I do not think her young age and <pCR are enough risk factors in context of multicentric T1 tumors to warrant post-mastectomy RT. If on the other hand, her tumor wasa T3N0, there is more evidence for post-mastectomy RT (although still controversial). In summary, after reviewing all of the imaging and pathology, our TB felt that she likely did not have a 7cm invasive tumor at presentation, rather two smaller, separate lesions. Given this and her node negative status and risk to implant based reconstruction, I do NOT think the benefits of XRT outweigh the risks in her case. However, given the importance of this decision for Trina, we decided she should have a second opinion. I will refer her to Dr. Ram at [facility] who has published on this subject (see table below from [employer] paper 2012). Trina falls into the Tailored Decisions recommendations. documented in this encounter Plan of Treatment Upcoming Encounters Date Type Department Care Team (Late st Contact Info) Description 06/30/2024 4:30 PM EDT Office Visit Hematology [place] [address] Shilpi Gallegos MD [facility] [place] [address] Scheduled Referrals Name Type Priority Associated Diagnoses Orde r Schedule Referral to Radiation Oncology Outpatient Referral Routine Malignant neoplasm of upper-outer quadrant of right breast in female, estrogen receptor positive Ordered: 03/31/2017 documented as of this encounter Visit Diagnoses Diagnosis Invasive ductal carcinoma of right breast documented in this encounter Care Teams Cushion Mat Maker Relationship Specialty Start Date End Date Radha Acuna MD [address] [place] [address] [place] [address] PCP - General 08/07/11 documented as of this encounter
--- OUTSIDE RECORDS SUMMARY | 2024-04-07 16:40 | XMS_ITS | Encounter Summary ---
Author Organization [facility] [place] [address] Care Team Providers Care Plaster Maker Name Role Phone Radha Acuna MD Primary Care Provider +1- [phone] Reason for Visit * Reason Comments Follow Up Surgery expansion Encounter Details Date Type Department Care Team (Late st Contact Info) Description 04/14/2017 11:00 AM EST Office [place] [address] Tonya Trevino APRN [facility] [address] Surgery follow-up Social History Tobacco Use Types [...] of this encounter Progress Notes * Tonya Trevino APRN - 04/14/2017 11:00 AM EST Plastic Surgery Post Op Note Reason for visit: F/U status post procedure Date of surgery: 03/15/17 Procedure(s): Bilateral Mastectomy/Bilateral breast reconstruction with tissue expanders 300ccArtoura High Profile saline breast expanders were placed bilaterally in submuscular/Allomax pockets and filled to 100 cc with sterile saline. Complications: None reported Chemotherapy: Completed one course in January. May require second course. Radiation: No Anticipated exchange date: TBD Symmetry surgery: n/a HPI: Pt reports that she is improving daily. She reports that her ROM have also improved. She meetswith her radiation oncologist next week. She has questions regarding her exchange and the effects of proceeding with radiation if need be. She appreciates bilateral breast pain and finds it difficultto sleep at night. She has been working with the Physical Therapist. She would like to proceed with an expansion at today's visit. She would like to engage in aerobic exercises. Examination: Patient is alert, conversant, comfortable, ambulating Flaps well perfused. NACs well perfused. Hospital Social Worker in good position, maintaining fill volume. Incisions intact. No collection, no erythema, no evidence of cellulitis. Procedure: Today, under sterile conditions, 30 ml of saline was placed bilaterally to expanders bringing total to 155 ml on each side. Impression: Trina Frances is a 36 y.o. female who was seen today for follow-up after the above procedure. Please see the operative note for details. Discussed possible effect of radiation on implantbased reconstruction. Tolerated expansion well. Plan: 1. Follow up with Tonya on 04/21/16 2. Follow up with Dr. Zurita on 04/29 for expansion and to discuss exchange 3. Limit activities: do not lift > 5 pounds, no pushing, no pulling, no bouncing or running, no chest engaging activities such as push-ups or plank for another two weeks. I, Flor Fowler, am acting as scribe for Tonya Trevino APRN. All work documented was performed byTonya Trevino APRN ???I performed the above scribed service and agree with the accuracy of the note?? TONYA TREVINO APRN documented in this encounter Plan of Treatment Upcoming Encounters Date Type Department Care Team (Late st Contact Info) Description 06/30/2024 4:30 PM EDT Office Visit [place]ology [place] [address] Shilpi Gallegos MD [facility] DR [place] [address] documented as of this encounter Visit Diagnoses Diagnosis Surgery follow-up Follow-up examination, following unspecified surgery documented in this encounter Care Teams Plaster Maker Relationship Specialty Start Date End Date Radha Acuna MD [address] [place] [address] [place] [address] PCP - General 08/07/11 documented as of this encounter
--- OUTSIDE RECORDS SUMMARY | 2024-04-07 16:40 | XMS_ITS | Encounter Summary ---
Author Organization [facility] Address [facility] [address] Care Team Providers Care Manager Government Name Role Phone Radha Acuna MD Primary Care Provider +1- [phone] Encounter Details Date Type Department Care Team (Latest Contact Info) Description 04/28/2017 10:46 AM EST - 04/28/2017 11:59 PM [facility] Hospital Encounter [place]ology [place] [address] Invasive ductal carcinoma of right breast Discharge [...] Progress Notes * Zaida Dawson RN - 04/28/2017 12:35 PM EST Patient Name: Trina Frances Patient Age: 36 y.o. Birthdate: 1980 Admit date: 04/28/2017 Attending Physician: No att. providers found Access visit. See MAR and/or flowsheet. documented in this encounter Plan of Treatment Upcoming Encounters Date Type Department Care Team (Late st Contact Info) Description 06/30/2024 4:30 PM EDT Office Visit Hematology [place] [id number] Shilpi Gallegos MD [facility] [address] [place] [address] documented as of this encounter Procedures Procedure Name Priority Date/Time Associated Diagnosis Comments HEMOGRAM STAT 04/28/2017 12:20 PM EST Invasive ductal carcinoma of right breast DIFFERENTIAL, AUTOMATED STAT 04/28/2017 12:20 PM EST Invasive ductal carcinoma of right breast CBC (WITH DIFF) STAT 04/28/2017 12:20 PM EST Invasive ductal carcinoma of right breast COMPREHENSIVE METABOLIC PANEL STAT 04/28/2017 12:20 PM EST Invasive ductal carcinoma of right breast documented in this encounter Results * Differential, Automated (04/28/2017 12:20 PM EST) Pathologist [facility] Neutrophil % 51.1 % [facility] Neutrophil Absolute 2.33 1.70 - 6.10 x10(3)/[facility] Lymph % 36.0 % [facility] Lymphocytes Abs 1.6 0.9 - 3.2 x10(3)/[facility] Monocyte % 7.2 % [facility] Monocyte Abs 0.3 0.3 - 0.9 x10(3)/[facility] Eos % 5.5 % [facility] Eosinophils Abs 0.2 0.0 - 0.4 x10(3)/[facility] Basophil % 0.0 % [facility] Baso Absolute 0.0 0.0 - 0.1 x10(3)/[facility] Immature Gran % 0.20 % [facility] Comment: Immature granulocytes(IG's)percentage and absolute count will include metamyelocytes, myelocytes, and promyelocytes. Blood smears from CBCs yielding IG's will be scanned manually for concordance. If this scan disagrees with the automated IG or if promyelocytes are noted, a manual differential will be performed. Immature Gran Absolute 0.01 0.00 - 0.04 x10(3)/[facility] Blood specimen (specimen) 04/28/2017 12:20 PM EST 04/28/2017 12:39 PM EST Narrative Resulting Agency Comment Spec In Lab Shilpi Gallegos MD HEMATOLOGY ORDERABL ES [facility] [place] [address] * (ABNORMAL) Hemogram (04/28/2017 12:20 PM EST) Pathologist [facility] White Blood Cell 4.6 4.0 - 9.5 x10(3)/mc L [facility] Red Blood Cell 3.59(L) 4.00 - 5.21 x10(6)/mc L [facility] Hemoglobin 11.9 11.7 - 15.5 gm/dL [facility] Hematocrit 35.2(L) 35.7 - 45.8 % [facility] Mean Cell Volume 98.1(H) 82.6 - 94.[address] [facility] Mean Cell Hemoglobin 33.1(H) 27.1 - 32.[address] [facility] Mean Cell Hemoglobin Concentration 33.8 31.7 - 35.0 gm/dL [facility] Platelet 163 145 - 357 x10(3)/mc L [facility] RDW Standard Deviation 38.7 37.0 - 46.[address] [facility] RDW coefficient of variation 10.9(L) 11.5 - 14.1 % [facility] Mean Platelet Volume 9.6 7.6 - 12.[address] [facility] NRBC% auto 0.0 % [facility] NRBC Absolute 0.000 0.000 - 0.000 x10(3)/mc L [facility] Blood specimen (specimen) 04/28/2017 12:20 PM EST 04/28/2017 12:39 PM EST Narrative Resulting Agency Comment Spec In Lab Shilpi Gallegos MD HEMATOLOGY ORDERABL ES [facility] [place] [address] * Comprehensive metabolic panel (non-fasting) (04/28/2017 12:20 PM EST) Glucose 140 65 - 199 mg/dL [facility] Comment:Diabetes: >=200 mg/d L plus symptoms Blood Urea Nitrogen 15 8 - 18 mg/dL [facility] Creatinine 0.85 0.70 - 1.20 mg/dL [facility] Sodium 140 135 - 145 mmol/L [facility] Potassium 3.7 3.5 - 5.0 mmol/L [facility] Comment: Please note: ??Patients with WBC >100,000 may have falsely elevated Potassium levels. ??For accurate Potassium quantification in these patients send serum separator tube (gold top) for subsequent determinations. ??Contact the Clinical Chemistry Laboratory if there are any questions. Chloride 99 98 - 107 mmol/L [facility] Carbon Dioxide 30 22 - 31 mmol/L [facility] Anion Gap 11 5 - 15 mmol/L [facility] Calcium 9.8 8.5 - 10.5 mg/dL [facility] Protein, Total 7.2 6.1 - 8.0 gm/dL [facility] Albumin 4.3 3.2 - 5.2 gm/dL [facility] Aspartate Aminotransferase 27 0 - 30 unit/L [facility] Alanine Aminotransferase 11 0 - 30 unit/L [facility] Alkaline Phosphatase 80 40 - 104 unit/L [facility] Bilirubin, Total 0.2 0.2 - 1.3 mg/dL [facility] Est Glomerular Filtration Rate >60 >=60 [facility] Comment: The reported eGFR should be multiplied by 1.2 for patients. The MDRD is not an appropriate measure of renal function for patients with body mass extremes or in patients with acute kidney failure. http://[employer]/DHnkdep http://[employer]/DHMCnkf Blood specimen (specimen) 04/28/2017 12:20 PM EST 04/28/2017 12:39 PM EST Narrative Resulting Agency Comment Spec In Lab Shilpi Gallegos MD CHEMISTRY ORDERABLE S [facility] [place] [address] documented in this encounter Visit Diagnoses Diagnosis Invasive ductal carcinoma of right breast documented in this encounter Care Teams Manager Government Relationship Specialty Start Date End Date Radha Acuna MD [address] [place] [address] [place] [address] PCP - General 08/07/11 documented as of this encounter
--- OUTSIDE RECORDS SUMMARY | 2024-04-07 16:40 | XMS_ITS | Encounter Summary ---
Author Organization [facility] [place] [address] [address] Prov[address] Care Ct Scan Tech Name Role Phone Radha Acuna MD Primary Care Provider +1- [phone] Reason for Visit * Reason Comments Chemotherapy Herceptin * Treatment/Therapy Plan Authorization (Routine) - Closed Specialty Diagnoses / Procedures Referred By Contac t Referred To Contact Diagnoses Invasive ductal carcinoma of right breast Procedures TC TRASTUZUMAB, 10MG, INJECTION (HERCEPTIN) TC CHEMO ADMIN, IV INFUSION, UP TO 1HR, SINGLE/INITIAL DRUG TC CHEMO ADMIN, IV INFUSION, EA ADDL HR, SINGLE/INITIAL DRUG Shilpi Gallegos MD [facility] DR HEMATOLOGY [place] [address] [facility] Hem Onc [address] [place] [address] Referral ID Status Reason Start Date Expiration Date Visits Re quested Visits Authorized [id number] Closed 03/31/2017 02/14/2019 17 Encounter Details Date Type Department Care Team (Latest Contact Info) Description 04/28/2017 10:46 AM EST - 04/28/2017 11:59 PM EST Hospital Encounter Hematology [place] [address] Invasive ductal carcinoma of right [...] as of this encounter Progress Notes * Rios Brown RN - 04/28/2017 6:42 PM EST Patient Name: Trina Frances Patient Age: 36 y.o. Birthdate: 1980 Admit date: 04/28/2017 Attending Physician: No att. providers found TIME TREATMENT STARTED: 1430 TIME TREATMENT ENDED: 1640 Trina Frances, 36 y.o. female with diagnosis of Breast Ca is here for chemotherapy infusion of herceptin. PROTOCOL: NA CYCLE: 1 WEEK: NA DAY: 1 S: Pt. offers no complaints at this time. Patient discharged to home O: Patient's Chemotherapy orders independently verified for correct drug name, route and dosage perpatient's height, weight and BSA by Rios Stephanie RN and Pharmacist. REACTIONS (DESCRIPTION, TIME, INTERVENTION AND EFFECTIVENESS) None noted. A: Pt. Tolerated treatment well. Trina Frances confirms that all questions and issues have been addressed. Fluid intake, exercise, watching for a fever and handwashing discussed with patient. P: Return to clinic per routine. documented in this encounter Plan of Treatment Upcoming Encounters Date Type Department Care Team (Late st Contact Info) Description 06/30/2024 4:30 PM EDT Office Visit Hematology [place] [address] Shilpi Gallegos MD [facility] DR HEMATOLOGY [place] [address] documented as of this encounter Visit Diagnoses Diagnosis Invasive ductal carcinoma of right breast documented in this encounter Administered Medications Inactive Administered Medications - up to 3 most recent administrations Medication Order MAR Action Action Date Dose Rate Site heparin, porcine 100 unit/mL flush 500 Units 500 Units, Intravenous, ONCE PRN, Starting on Wed04/28/17 at 1050, Until Kaycee 04/29/17 at 0435, Line Care, Refer to Intravenous (IV) Procedure: Accessing Implanted Vascular Access Devices (654) procedure and/or Intravenous (IV) Job Aid: Adult Flushing & Catheter Care (7832) job aid for additional information regarding guidelines and administration., Routine Given 04/28/2017 4:40 PM EST 500 Units sodium chloride 0.9 % flush 5-20 mL 5-20 mL, Intravenous, EVERY 1 MIN PRN, Starting on Wed04/28/17 at 1050, Until Kaycee 04/29/17 at 0435, Line Care, Flush pertains to all indwelling lines. Flush per protocol found in the job aid using the link provided on this medication record. Refer to Intravenous (IV) Job Aid: Adult Flushing & Catheter Care (9511) job aid for additional information regarding guidelines and administration., Routine Given 04/28/2017 4:40 PM EST 20 mLs TRASTuzumab (HERCEPTIN) 450 mg in sodium chloride 0.9% 271.45 mL infusion 450 mg, Intravenous, ONCE, 1 dose, On Wed04/28/17 at 1515, Administer over 90 Minutes, Dose Ordered = 410 mg (8 mg/kg). Pharmacist rounded dose per procedure. New Bag 04/28/2017 2:54 PM EST 450 mg 181 mL/hr documented in this encounter Care Teams Ct Scan Tech Relationship Specialty Start Date End Date Radha Acuna MD [address] [place] [address] [place] [address] PCP - General 08/07/11 documented as of this encounter
--- OUTSIDE RECORDS SUMMARY | 2024-04-07 16:40 | XMS_ITS | Encounter Summary ---
[place] [address] Care Team Providers Care Side Panel Padder Name Role Phone Radha Acuna MD Primary Care Provider +1- [phone] Encounter Details Date Type Department Care Team (Late st Contact Info) Description 03/22/2017 Telephone [place] [address] Ruby Negro MD Social History Tobacco Use Types Packs/Day [...] encounter Miscellaneous Notes * Telephone Encounter - Ruby Negro MD - 03/22/2017 10:34 AM EST Called patient to discuss path results. Partial response with only microinvasion remaining. Likely about 1.5cm of invasive pre treatment. 0/8 lymph nodes negative, with no evidence of scarring therefore, likely did not have positive lymph nodes pre chemo. Will present at tumor board to discuss if additional treatment recommended. Overall patient is doing well post op. Only complaining of more drainage in right than left which makes sense given lymph nodes removed on that side. Plan to see me in follow up in 2 weeks. CVA documented in this encounter Plan of Treatment Upcoming Encounters Date Type Department Care Team (Late st Contact Info) Description 06/30/2024 4:30 PM EDT Office Visit [place]ology [place] [address] Shilpi Gallegos MD [facility] DR HEMATOLOGY [place] [address] documented as of this encounter Visit Diagnoses Not on filedocumented in this encounter Care Teams Side Panel Padder Relationship Specialty Start Date End Date Radha Acuna MD [address] [place] [address] [place] [address] PCP - General 08/07/11 documented as of this encounter
--- OUTSIDE RECORDS SUMMARY | 2024-04-07 16:40 | XMS_ITS | Encounter Summary ---
Author Organization [facility] [place] [address] Care Team Providers Care Rail Transportation Tabeler Name Role Phone Radha Acuna MD Primary Care Provider +1- [phone] Reason for Visit * Reason Comments Follow Up Surgery expansion Encounter Details Date Type Department Care Team (Late st Contact Info) Description 04/21/2017 10:20 AM EST Office Visit [place] [address] Tonya Griffith APRN [facility] [place] [address] Surgery follow-up Social History Tobacco Use Types [...] of this encounter Progress Notes * Tonya Griffith APRN - 04/21/2017 10:20 AM EST Plastic Surgery Post Op Note Reason for visit: F/U status post procedure Date of surgery: 03/15/17 Procedure(s): Bilateral Mastectomy/Bilateral breast reconstruction with tissue expanders 300ccArtoura High Profile saline breast expanders were placed bilaterally in submuscular/Allomax pockets and filled to 100 cc with sterile saline. Complications: None reported Chemotherapy: Completed one course in January. Starting Herceptin next week. Radiation: Getting second opinion. Anticipated exchange date: 4 weeks after last expansion. Preference for prior to radiation if needed. Symmetry surgery: n/a HPI: Pt reports that she is doing ok. She tolerated her last expansion well. She would like to proceed with 50 ml at today's visit. She report that she saw her Radiation Oncologist today. Radiation not clearly indicated, will get second opinion. Examination: Patient is alert, conversant, comfortable, ambulating Flaps well perfused. NACs well perfused. Manufacturing Engineer Paint in good position, maintaining fill volume. Incisions intact. No collection, no erythema, no evidence of cellulitis. Procedure: Today, under sterile conditions, 50 ml of saline was placed bilaterally to expanders bringing total to 205 ml on each side. Impression: Trina Frances is a 36 y.o. female who was seen today for follow-up after the above procedure. Please see the operative note for details. Tolerated expansion well. Reassured patient she is healing well. Plan: 1. Follow up with Dr. Zurita on 04/29 for expansion and to discuss exchange. 2. Limit activities: do not lift > 5 pounds, no pushing, no pulling, no bouncing or running, no chest engaging activities such as push-ups or plank for another two weeks. 3. Take Ibuprofen if needed. I, Vladislav Dumont, am acting as scribe for Tonya Griffith APRN. All work documented was performed byTonya Griffith APRN ???I performed the above scribed service and agree with the accuracy of the note?? VLADISLAV DUMONT documented in this encounter Plan of Treatment Upcoming Encounters Date Type Department Care Team (Late st Contact Info) Description 06/30/2024 4:30 PM EDT Office Visit Hematology [place] [address] Shilpi Gallegos MD [facility] [place] [address] documented as of this encounter Visit Diagnoses Diagnosis Surgery follow-up Follow-up examination, following unspecified surgery documented in this encounter Care Teams Rail Transportation Tabeler Relationship Specialty Start Date End Date Radha Acuna MD [address] [place] [address] [place] [address] PCP - General 08/07/11 documented as of this encounter
--- OUTSIDE RECORDS SUMMARY | 2024-04-07 16:40 | XMS_ITS | Encounter Summary ---
Author Organization [facility] [place] [address] Care Team Providers Care Nurse Practitioner Manager Name Role Phone Radha Acuna MD Primary Care Provider +1- [phone] Reason for Referral * Consultation (Routine) - Closed Specialty Diagnoses / Procedures Referred By Clara cisneros Referred To Contact Radiation Oncology Diagnoses Malignant neoplasm of upper-outer quadrant of right breast in female, estrogen receptor positive Ruby Negro MD [facility] [place] [address] [facility] [place] [address] Referral ID Status Reason Start Date Expiration Date V isits Requested Visits Authorized [id number] Closed Consult, Test & Treat 03/31/2017 03/31/2018 1 1 Encounter Details Date Type Department Care Team (Late st Contact Info) Description 03/31/2017 11:15 AM EST Office Visit [place] [address] Rbuy Negro MD Malignant neoplasm of upper-outer quadrant of right [...] as of this encounter Progress Notes * Ruby Negro MD - 03/31/2017 11:15 AM EST [facility] Breast Program Surgical Oncology Postop Visit Reason for Visit: Trina Frances returns for postoperative visit. s/p right areola sparing mastectomy and sentinel node biopsy and left nipple sparing mastectomy Breast Cancer Summary Right breast IDC and DCIS s/p R areola sparing mastectomy and SLNB and left NS mastectomy and TE reconstruction (Dr. Swartz) Date: 03/15/17 <1mm multifocal, treatment effect area 1.5 cm 0 of 6 LNs positive cells,, ER+/IL+, Glb1Fcn+ pTNM: ---(m)yT1mi N0 (AJCC, 7th edition, 2010) Radiation: pending consultation Chemo: neoadjuvant TCH-P x 6 cycles (Dr. Power) Receptor targeted therapy: pending Genetics: negative testing History of Present Illness: Trina Frances has done well overall s/p surgery. She has most discomfort in the medial right chest. This is area discomfort from the stretch of her muscle. She also notes that she hears a swishing sound in her chest. Sometimes she does not know if it is her implant versus in her stomach. Current Outpatient Prescriptions on File Prior to Visit Medication Sig Dispense Refill ??? oxyCODONE (ROXICODONE) 5 mg Tablet Take 1 tablet by mouth every 6 hours as needed for Pain. Cantake 1-2 tablets for pain that is not controlled on tylenol and NSAIDs 7 tablet 0 ??? acetaminophen (TYLENOL) 500 mg Tablet Take 2 tablets by mouth every 8 hours. (Patient not taking: Reported on 03/31/2017) 30 tablet 0 ??? polyethylene glycol (MIRALAX) 17 gram Powder in Packet Take 17 g by mouth daily as needed. ??? docusate sodium (COLACE) 100 mg Capsule Take 100 mg by mouth daily. ??? LACTOBACILLUS ACIDOPHILUS (PROBIOTIC ORAL) Take by mouth daily. ??? lidocaine-prilocaine (EMLA) Cream Apply small amount of cream using q-tip on mediport site approx 30-60 minutes before access. Cover site with saran wrap. 30 g 3 ??? multivitamin (THERAGRAN) Tablet Take 1 tablet by mouth daily. ??? cetirizine (ZYRTEC) 10 mg tablet No current facility-administered medications on file prior to visit. Allergies as of 03/31/2017 - Review Complete 03/31/2017 Allergen Reaction Noted ??? Aspirin Hives ??? Hydrocodone-acetaminophen Hives ??? Tegaderm [transparent dressings] Dermatitis 03/15/2017 ??? Tioconazole PE: Trina has a well-healing incisions on both reconstructed chest. Skin intact. No erythema. No seroma. Imp: Trina Frances is a 36 y.o. 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 Pathology reviewed showed partial response with what looks like an area of scar about 1.5 cm with residual tumor measuring less than 1 mm, multifocal. Negative lymph nodes. This would be a treated stage I. We discussed that I will be presenting her attumor board today, yet most likely she would not need radiation therapy. If she truly had a 7 cm tumor than we would recommend this. We do not have evidence on this on current pathology. She will continue treatment otherwise under Dr. Power. Now that she has had both breasts removed, there isno standard surveillance imaging. We discussed that we would follow her clinically. Plan: -Present at breast tumor board - Return in 6 months for CBE - Medical oncology Dr. Gallegos -Possible radiation oncology consultation Ruby Negro MD Surgical Oncology documented in this encounter Plan of Treatment Upcoming Encounters Date Type Department Care Team (Late st Contact Info) Description 06/30/2024 4:30 PM EDT Office Visit [place]ology [place] [address] Shilpi Gallegos MD [facility] DR HEMATOLOGY [place] [address] Scheduled Referrals Name Type Priority Associated Diagnoses Orde r Schedule Referral to Radiation Oncology Outpatient Referral Routine Malignant neoplasm of upper-outer quadrant of right breast in female, estrogen receptor positive Ordered: 03/31/2017 documented as of this encounter Visit Diagnoses Diagnosis Malignant neoplasm of upper-outer quadrant of right breast in female, estrogen receptor positive documented in this encounter Care Teams Nurse Practitioner Manager Relationship Specialty Start Date End Date Radha Acuna MD [address] [place] [address] [place] [address] PCP - General 08/07/11 documented as of this encounter
--- OUTSIDE RECORDS SUMMARY | 2024-04-07 16:40 | XMS_ITS | Encounter Summary ---
Author Organization [facility] [place] [address] Care Team Providers Care Rental Clerk Tool And Equipment Name Role Phone Radha Acuna MD Primary Care Provider [phone] Reason for Visit * Auth/Cert Specialty Diagnoses [...] Expiration Date Visits Re quested Visits Authorized [id number] 1 1 Encounter Details Date Type Department Care Team (Late st Contact Info) Description 03/15/2017 7:30 AM EST - 03/15/2017 11:58 AM EST [place] [phone] Ruby Carrera MD MASTECTOMY, SIMPLE, COMPLETE-MICHAEL (WRVU 15) Social History Tobacco Use Types Packs/Day Years [...] Sign Reading Time Taken Comments Blood Pressure 119/73 03/15/2017 6:08 AM EST Pulse 82 03/15/2017 6:08 AM EST Temperature 36.8 ??C (98.2 ??F) 03/15/2017 6:08 AM ES T Respiratory Rate 16 03/15/2017 6:08 AM EST Oxygen Saturation 97% 03/15/2017 6:08 AM EST Inhaled Oxygen Concentration - - Weight 51.7 kg (114 lb) 03/15/2017 6:08 AM EST Height - - Body Mass Index 21.3 02/02/2017 9:04 AM EDT documented in this encounter Discharge Summaries * Niki Bass PA - 03/16/2017 11:07 AM EST PLASTIC SURGERY DISCHARGE SUMMARY Patient Name: Trina Frances Patient Age, : 36 y.o. 1980 Language, race, ethnicity: Argentine, White, Not nor Date of Admission: 03/15/2017 [...] BREAST RECONSTRUCTION, IMMEDIATE OR DELAYED, WITH TISSUE COIN DEALER INCLUDING SUBSEQUENT EXPANSION-MICHAEL (WRVU 18.5) IMPLANTATION OF [...] Hospital Course: Patient was admitted electively to [facility] via the same day surgery program and [...] Primary * Niki Bass PA - [facility] Display Builder: Procedure(s): MASTECTOMY, SIMPLE, COMPLETE-MICHAEL (WRVU 15.85) BIOPSY OR EXCISION OF LYMPH NODE(S), OPEN, DEEP AXILLARY NODE(S) (WRVU 6.43) INTRAOPERATIVE ID (MAPPING) SENTINEL LYMPH NODE,INCLUDES INJECTION (WRVU 2.5) MODIFIER SENTINEL NODE EXCISION MODIFIER , NIPPLE SPARING BREAST RECONSTRUCTION, IMMEDIATE OR DELAYED, WITH TISSUE COIN DEALER INCLUDING SUBSEQUENT EXPANSION-MICHAEL (WRVU 18.5) IMPLANTATION OF [...] and only as needed. ??? Take an agrs-wnw-rrglxeq stool softener, such as Colace while taking [...] breast, this is to ensure the tissue spanish language lecturer does not move allowing for a symmetric [...] about scheduling, please contact our administrative officesat [phone] For clinical questions, please call our nurses at [phone] Both offices are open Wednesday thru Wednesday 8a - 5p. With emergencies after hours, call the hospital tier lift operator at [phone] and ask for the Plastic Surgery Resident radiation safety officer. Narcotics: You may be given a prescription [...] called in to our prescription line at [phone]. Narcotic renewals may be requested from 8am-4pm [...] arrival. Post-Op Plan: - Follow up with BUSINESS MANAGER [facility]/nurse in 7-10 days - Wound Check - Dressings removal if needed Future Appointments Date Time Provider Department Center 03/31/2017 9:30 AM Shilpi Gallegos MD [facility] 03/31/2017 10:00 AM Elizabeth Rosales PT [facility] 03/31/2017 11:15 AM Ruby Carrera MD [facility] General Instructions None Future Appointments and Orders Future Appointments Provider Department Dept Phone 03/24/2017 9:00 AM NURSE, PLASTIC SURGERY [facility] [place] [phone] 03/24/2017 10:00 AM Elizabeth Rosales PT [facility] [place] [phone] 03/31/2017 9:30 AM Shilpi Gallegos MD [facility] [place] [phone] 03/31/2017 10:00 AM Elizabeth Rosales PT [facility] [place] [phone] 03/31/2017 11:15 AM Ruby Carrera MD [facility] [place] [phone] Discharge Medications: Your Medications Notice Some of [...] AM NURSE, PLASTIC SURGERY [facility] [place] [phone] 03/24/2017 10:00 AM Elizabeth Rosales, PT [facility] [place] [phone] 03/31/2017 9:30 AM Shilpi Gallegos MD [facility] [place] [phone] 03/31/2017 10:00 AM Elizabeth Rosales PT [facility] [place] [phone] 03/31/2017 11:15 AM Ruby Carrera MD [facility] [place] [phone] Primary Care Provider: Radha Acuna MD [phone] VNA: No discharge procedures on file. General Instructions None Your care was managed by the [facility] at [facility]. If you haveany questions or concerns, please feel free to contact us. Provider Contact Information: Plastic Surgery Clinic: [facility] (after business hours): documented in this encounter [...] and only as needed. ??? Take an wyll-sab-jdqfdis stool softener, such as Colace while taking [...] breast, this is to ensure the tissue spanish language lecturer does not move allowing for a symmetric [...] about scheduling, please contact our administrative officesat [phone] For clinical questions, please call our nurses at [phone] Both offices are open Wednesday thru Wednesday 8a - 5p. With emergencies after hours, call the hospital tier lift operator at [phone] and ask for the Plastic Surgery Resident radiation safety officer. Narcotics: You may be given a prescription [...] called in to our prescription line at [phone]. Narcotic renewals may be requested from 8am-4pm [...] arrival. Post-Op Plan: - Follow up with BUSINESS MANAGER [facility] UNIVERSITY/nurse in 7-10 days - Wound Check - [...] sent through Care Everywhere. * MASTECTOMY: POST-OP (SERBIAN) * BREAST RECONSTRUCTION WITH COIN DEALER OR IMPLANT: POST-OP (SERBIAN) documented in this encounter Medications at Time [...] request. Paper prescriptions given to pt by MD. All pt belongings taken upon D/C. No [...] was instructed to contact Regional Anesthesia Team ([id number]) for any unresolved sensory deficits. ?? Thank you for the opportunity to have participated in the care of this patient. Surinder Richards MD Regional Team pager [phone] * Neal Arana MD - 03/15/2017 5:22 PM EST POST-OPERATIVE [...] Frances is a 36 y.o. 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 and high [...] BREAST RECONSTRUCTION, IMMEDIATE OR DELAYED, W/ TISSUE COIN DEALER, INCLUDING SUBSEQUENT EXPANSION (WRVU 18.5) IMPLANTATION OF [...] Martínez MD - 03/15/2017 1:01 PM EST [facility] Operative Note Patient Name: Trina Frances : [id number] MR#: [id number] Case Date: 03/15/2017 Surgeon: Surgeon(s) and Role: Panel 1: * Ruby Carrera MD - Primary * Tye Goel MD Panel 2: * Frantz Martínez MD - Primary * Niki Bass PA - [facility] [employer] [facility] Display Builder Preoperative diagnosis: RIGHT BREAST CANCER Postoperative diagnosis: * No post-op diagnosis entered * Procedure(s) (LRB): MASTECTOMY, SIMPLE, COMPLETE-MICHAEL (WRVU 15.85) (Bilateral) BIOPSY OR EXCISION OF LYMPH NODE(S), OPEN, DEEP AXILLARY NODE(S) (WRVU 6.43) (Right) INTRAOPERATIVE ID (MAPPING) SENTINEL LYMPH NODE,INCLUDES INJECTION (WRVU 2.5) (Right) MODIFIER SENTINEL NODE EXCISION (Right) MODIFIER , NIPPLE SPARING (Left) BREAST RECONSTRUCTION, IMMEDIATE OR DELAYED, WITH TISSUE COIN DEALER INCLUDING SUBSEQUENT EXPANSION-MICHAEL (WRVU 18.5) (Right) IMPLANTATION [...] to simulate the required coverage of the spanish language lecturer at the completion of the expansion process. Interrupted and running 0 Vicryl sutures were used for this purpose. A 300 cc saline breast spanish language lecturer was selected for the reconstruction on each side. Air was removed from the expanders and they were filled with 100 cc's of saline using a closed fill system. The pockets and expanders were irrigated with an antibiotic solution and fresh towels placed around the wounds. The surgical team changed gloves and the spanish language lecturer was then introduced into the pocket and [...] Implant Name Type Inv. Item Serial No. Seismograph Chief Lot No. LRB No. Used Action SIZER,RND,MDRT,+,PRFL,[id number] ([id number]) (AUTOREQ) - [id number] IMPLANTS SIZER,RND,MDRT,+,PRFL,275-330C ([id number]) (AUTOREQ) [employer] [facility] [id number] Right 1 Implanted EXPAN,TISS,ARTOURA,300CC ([id number]) (AUTOREQ) - [id number] IMPLANTS EXPAN,TISS,ARTOURA,300CC ([id number]) (AUTOREQ) [id number] [employer] [facility] [id number] Right 1 Implanted GRAFT,ALLOMAX,4X16CM,1MMTHK ([id number]) (AUTOREQ) - [id number] IMPLANTS GRAFT,ALLOMAX,4X16CM,1MMTHK (1874023) (AUTOREQ) [id number] G2 [employer] [id number] [id number] 1 Implanted GRAFT,ALLOMAX,4X16CM,1MMTHK ([id number]) (AUTOREQ) - [id number] IMPLANTS GRAFT,ALLOMAX,4X16CM,1MMTHK ([id number]) (AUTOREQ) [id number] [address] [id number] Left 1 Implanted EXPAN,TISS,ARTOURA,300CC ([id number]) (AUTOREQ) - [id number] IMPLANTS EXPAN,TISS,ARTOURA,300CC ([id number]) (AUTOREQ) [id number] [employer] [facility] [id number] Left 1 Implanted Infection Bundle used? No Attestation: Case Date: 03/15/2017 I was present and I participated during the entire procedure (does not need to include opening and closing). FRANTZ MARTÍNEZ MD 03/21/2017 * Brief Op Note - Niki Bass PA - 03/15/2017 12:42 PM EST Brief Operative Note Patient Name: Trina Frances : [id number] MR#: [id number] Case Date: 03/15/2017 Surgeon: Surgeon(s) and Role: Panel 1: * Ruby Carrera MD - Primary * Tye Goel MD Panel 2: * Frantz Martínez MD - Primary * Niki Bass PA - [employer] [employer] Display Builder Preoperative diagnosis: RIGHT BREAST CANCER Postoperative diagnosis: * No post-op diagnosis entered * Procedure(s) (LRB): MASTECTOMY, SIMPLE, COMPLETE-MICHAEL (WRVU 15.85) (Bilateral) BIOPSY OR EXCISION OF LYMPH NODE(S), OPEN, DEEP AXILLARY NODE(S) (WRVU 6.43) (Right) INTRAOPERATIVE ID (MAPPING) SENTINEL LYMPH NODE,INCLUDES INJECTION (WRVU 2.5) (Right) MODIFIER SENTINEL NODE EXCISION (Right) MODIFIER , NIPPLE SPARING (Left) BREAST RECONSTRUCTION, IMMEDIATE OR DELAYED, WITH TISSUE COIN DEALER INCLUDING SUBSEQUENT EXPANSION-MICHAEL (WRVU 18.5) (Right) IMPLANTATION [...] report, review post-op activity restrictions 6 months: [facility] f/u with surgeon Future Appointments Date Time Provider Department Center 03/31/2017 9:30 AM Shilpi Gallegos MD [facility] 03/31/2017 10:00 AM Elizabeth Rosales PT [facility] 03/31/2017 11:15 AM Ruby Carrera MD [facility] * Op Note - Ruby Carrera MD - 03/15/2017 12:12 PM EST [facility] Operative Note Patient Name: Trina Frances : [id number] MR#: [id number] Case Date: 03/15/2017 Surgeon: Surgeon(s) and Role: Panel 1: * Ruby Carrera MD - Primary * Tye Goel MD Panel 2: * Frantz Martínez MD - Primary * Niki Bass PA - [employer] Display Builder Preoperative diagnosis: RIGHT BREAST CANCER Postoperative diagnosis: [...] BREAST RECONSTRUCTION, IMMEDIATE OR DELAYED, W/ TISSUE COIN DEALER, INCLUDING SUBSEQUENT EXPANSION (WRVU 18.5) (Right) IMPLANTATION [...] 4 hotright axillary SLNs. #1: 1539; #2: 53380, #3: 2276; #4: 82438. Remaining counts 122. Left nipple sparing mastectomy performed without complication. Left mediport left intact. Operative Indications: Trina Frances is a 36 y.o. 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 Plan for immediate TE spanish language lecturer reconstructionby plastic surgery. I explained the implications, [...] Operative Note Patient Name: Trina Frances : [id number] MR#: [id number] Case Date: 03/15/2017 Surgeon: Surgeon(s) and Role: Panel 1: * Ruby Carrera MD - Primary * Tye Goel MD Panel 2: * Frantz Martínez MD - Primary * Niki Bass PA - [employer] [employer] [facility] Display Builder Preoperative diagnosis: RIGHT BREAST CANCER Postoperative diagnosis: [...] BREAST RECONSTRUCTION, IMMEDIATE OR DELAYED, W/ TISSUE COIN DEALER, INCLUDING SUBSEQUENT EXPANSION (WRVU 18.5) (Right) IMPLANTATION [...] EDT Office Visit Hematology [place] [address] Shilpi Gallegos MD [facility] [place] [address] documented as of this encounter Procedures Procedure [...] BREAST RECONSTRUCTION, IMMEDIATE OR DELAYED, WITH TISSUE COIN DEALER INCLUDING SUBSEQUENT EXPANSION-MICHAEL (WRVU 14.84) 03/15/2017 8:06 [...] IMPLANTABLE DEVICES SCAN 03/15/2017 12:00 AM EST STRATEGIC SOURCING MANAGER SCAN 03/15/2017 12:00 AM EST POCT URINE Routine 03/15/2017 documented in this encounter Results * Specimen to Pathology (surgical or derm) (03/15/2017 11:11 AM EST) AP Specimen 03/15/2017 11:1 1 AM EST 03/15/2017 11:11 AM EST Narrative [facility] - 03/15/2017 11:11 AM EST Specimen requisition ordered. ??Separate Pathology report to follow Ruby Daniel MD PATHOLOGY/CYTOLO GY ORDERABLES Performing Organization Address [facility] Co de Phone Number [facility] [place] [address] * Specimen to Pathology (surgical or derm) (03/15/2017 10:12 AM EST) AP Specimen 03/15/2017 10:1 2 AM EST 03/15/2017 10:12 AM EST [facility] - 03/15/2017 10:12 AM EST Specimen requisition ordered. ??Separate Pathology report to follow Ruby Daniel MD PATHOLOGY/CYTOLO GY ORDERABLES Performing Organization Address [facility] Co de Phone Number [facility] [place] [address] * Specimen to Pathology (surgical or derm) (03/15/2017 10:07 AM EST) AP Specimen 03/15/2017 10:0 7 AM EST 03/15/2017 10:07 AM EST [facility] - 03/15/2017 10:07 AM EST Specimen requisition ordered. ??Separate Pathology report to follow Ruby Daniel MD PATHOLOGY/CYTOLO GY ORDERABLES Performing Organization Address [facility] Co de Phone Number [facility] [place] [address] * Specimen to Pathology (surgical or derm) (03/15/2017 9:59 AM EST) AP Specimen 03/15/2017 9:59 AM EST 03/15/2017 9:59 AM EST Narrative [facility] - 03/15/2017 9:59 AM EST Specimen requisition ordered. ??Separate Pathology report to follow Ruby Daniel MD PATHOLOGY/CYTOLO GY ORDERABLES Performing Organization Address [facility] Co de Phone Number [facility] [place] [place] [address] * Specimen to Pathology (surgical or derm) (03/15/2017 9:56 AM EST) AP Specimen 03/15/2017 9:56 AM EST 03/15/2017 9:56 AM EST Narrative [facility] - 03/15/2017 9:56 AM EST Specimen requisition ordered. ??Separate Pathology report to follow Ruby Daniel MD PATHOLOGY/CYTOLO GY ORDERABLES Performing Organization Address [facility] [place] [address] * Surgical Pathology Report (03/15/2017 9:51 AM EST) Final Diagnosis [id number] ? Location: [facility]; [facility]; A The signing pathologist has (i) examined the relevant preparation(s) for the specimen(s) and (ii) rendered or confirmed the diagnosis(es). . ? Addendum ADDENDUM DISCUSSION This case has been reviewed by Kam Skinner MD of [facility] ?[facility]s [facility] ([facility]) by report dated 05/03/2017 with the accession number [id number]. The [facility] ?[facility] ([facility]) diagnosis is in minor disagreement with our diagnosis. While I reported the residual invasive carcinoma as being present as scattered, rare minute clusters (pT1mi), Dr. Skinner measured a distance of 0.2 cm between clusters (pT1a). The [facility] pathology report was discussed with Dr. Finn on 05/05/17. For the full text of the [facility] report(s, please refer to [facility] Pathology in the electronic health record (eDH). Electronically signed by: ??Maurice LEGER, Miguel Mcelroy Verified: ??05/11/2017 ?Pathologist Performed at: ??-[facility] Dept. of Pathology, [place], [place] ?Surgical Pathology DIAGNOSIS A - Right [...] ??Skin-sparing mastectomy ? Lymph Node Sampling: ?? [place] lymph node(s) ? Specimen Laterality: ?? Right [...] treated DCIS 3 mm Lymph Nodes ? [place] Lymph Nodes: ?? [place] lymph node biopsy performed ? Number of [place] Nodes Examined: ?8 ? Lymph Node Involvement: ?? None identified Stage (pTNM) ? TNM Descriptors: ?? y (post-treatment) ? Regional Lymph Nodes (pN) ?Modifier: ??(sn): Only sentinel node(s) evaluated ? Pathological Stage: ?? pT1mi ??pN0 Tumor Block(s): ?? E7 [facility] June 2015 Annual Release Electronically signed by: ??Maurice LEGER, Miguel Mcelroy Verified: ??03/19/2017 ?Pathologist Performed at: ??-[facility] Dept. of Pathology, [place], [place] DISCUSSION Sections show rare minute clusters [...] (the entire lesion has been submitted); (E8-E9) retail account representative fibrous tissue, lower inner quadrant; (E10-E11) retail account representative fibrous tissue, lower outer quadrant; (E12-E13) retail account representative fibrous tissue, upper outer quadrant. ?(R13) [...] ?? (F1) nipple margin, en face; (F2-F3) retail account representative upper inner quadrant; (F4-F5) retail account representative lower inner quadrant; (F6-F7) retail account representative lower outer quadrant; (F8-F9) retail account representative upper outer quadrant ?? . (R9) Ischemic Time: 208 minutes ??knr 05/11/2017 3:08 PM EST [facility] BREAST STRUCTURE / Unknown [...] MD PATHOLOGY/CYTOLO GY ORDERABLES Performing Organization Address City/[facility]/[place] [address] * Specimen to Pathology (surgical or derm) (03/15/2017 9:51 AM EST) AP Specimen 03/15/2017 9:51 AM EST 03/15/2017 9:51 AM EST Narrative [facility] - 03/15/2017 9:51 AM EST Specimen requisition ordered. ??Separate Pathology report to follow Ruby Daniel MD PATHOLOGY/CYTOLO GY ORDERABLES Performing Organization Address City/[facility]/[place] [address] * Differential, Automated (03/15/2017 6:50 AM EST) Neutrophil % 55.7 % [facility] Neutrophil Absolute 2.12 1.70 - 6.10 x10(3)/[facility] Lymph % 32.8 % [facility] Lymphocytes Abs 1.2 0.9 - 3.2 x10(3)/[facility] Monocyte % 8.4 % [facility] Monocyte Abs 0.3 0.3 - 0.9 x10(3)/[facility] Eos % 2.6 % [facility] Eosinophils Abs 0.1 0.0 - 0.4 x10(3)/[facility] Basophil % 0.0 % [facility] Baso Absolute 0.0 0.0 - 0.1 x10(3)/[facility] Immature Gran % 0.50 % [facility] Comment: Immature granulocytes(IG's)percentage and absolute count will include metamyelocytes, myelocytes, and promyelocytes. Blood smears from CBCs yielding IG's will be scanned manually for concordance. If this scan disagrees with the automated IG or if promyelocytes are noted, a manual differential will be performed. Immature Gran Absolute 0.02 0.00 - 0.04 x10(3)/[facility] Blood specimen (specimen) 03/15/2017 6:50 AM EST 03/15/2017 6:56 AM EST Narrative Resulting Agency Comment Spec In Lab Ruby Daniel MD HEMATOLOGY ORDER ZAFAR [facility] [place] [address] * (ABNORMAL) Hemogram (03/15/2017 6:50 AM EST) White Blood Cell 3.8(L) 4.0 - 9.5 x10(3)/[facility] Red Blood Cell 3.03(L) 4.00 - 5.21 x10(6)/ L [facility] Hemoglobin 10.8(L) 11.7 - 15.5 gm/dL [facility] Hematocrit 31.3(L) 35.7 - 45.8 % [facility] Mean Cell Volume 103.3(H) 82.6 - 94.4 fL [facility] Mean Cell Hemoglobin 35.6(H) 27.1 - 32.0 pg [facility] Mean Cell Hemoglobin Concentration 34.5 31.7 - 35.0 gm/dL [facility] Platelet 184 145 - 357 x10(3)/ L [facility] RDW Standard Deviation 49.1(H) 37.0 - 46.0 fL [facility] RDW coefficient of variation 12.9 11.5 - 14.1 % [facility] Mean Platelet Volume 9.2 7.6 - 12.9 fL [facility] NRBC% auto 0.0 % [facility] NRBC Absolute 0.000 0.000 - 0.000 x10(3)/mc L [facility] Blood specimen (specimen) 03/15/2017 6:50 AM EST 03/15/2017 6:56 AM EST Narrative Resulting Agency Comment Spec In Lab Ruby Daniel MD HEMATOLOGY ORDER ZAAFR Performing Organization Address [facility] Co de Phone Number [facility] [place] [address] * BUN (03/15/2017 6:50 AM EST) Blood Urea Nitrogen 12 8 - 18 mg/dL [facility] Blood specimen (specimen) 03/15/2017 6:50 AM EST 03/15/2017 6:56 AM EST Narrative Resulting Agency Comment Spec In Lab Ruby Daniel MD CHEMISTRY ORDERA BLES Performing Organization Address [facility] Phone Number [facility] [place] [address] * Creatinine (03/15/2017 6:50 AM EST) Creatinine 0.74 0.70 - 1.20 mg/dL [facility] Est Glomerular Filtration Rate >60 >=60 [facility] Comment: The reported eGFR should be multiplied by 1.2 for patients. The MDRD is not an appropriate measure of renal function for patients with body mass extremes or in patients with acute kidney failure. [email or web address]/DHnkdep [email or web address]://Eximia/DHMCnkf Blood specimen (specimen) 03/15/2017 6:50 AM EST 03/15/2017 6:56 AM EST Narrative Resulting Agency Comment Spec In Lab Ruby Daniel MD CHEMISTRY ORDERA CORBY Performing Organization Address [facility] Co de Phone Number [facility] [place] [address] * (ABNORMAL) Electrolytes panel (03/15/2017 6:50 AM EST) Sodium 142 135 - 145 mmol/L [facility] Potassium 3.2(L) 3.5 - 5.0 mmol/L [facility] Comment: Please note: ??Patients with WBC >100,000 may have falsely elevated Potassium levels. ??For accurate Potassium quantification in these patients send serum separator tube (gold top) for subsequent determinations. ??Contact the Clinical Chemistry Laboratory if there are any questions. Chloride 100 98 - 107 mmol/L [facility] Carbon Dioxide 28 22 - 31 mmol/L [facility] Anion Gap 14 5 - 15 mmol/L [facility] Blood specimen (specimen) 03/15/2017 6:50 AM EST 03/15/2017 6:56 AM EST Narrative Resulting Agency Comment Spec In Lab Ruby Daniel MD CHEMISTRY ORDERBill TAVAREZ Performing Organization Address [facility] Co de Phone Number [facility] [place] [address] * SCAN DOC: IMPLANTABLE DEVICES (03/15/2017 12:00 AM EST) Narrative 03/15/2017 12:00 AM EST Ordered by an unspecified provider. Scanning Provider MEDIA MGR SCAN EXT O RDR/RSLT * POCT urine (03/15/2017) POC Urine HCG Negative Negative - Negative POC Control Internal Controls Acceptable 03/15/2017 Ruby Daniel MD POINT OF CARE TE ST ORDERABLES * SCAN DOC: STRATEGIC SOURCING MANAGER (03/15/2017 12:00 AM EST) Anatomical Region Laterality Modality Other Narrative 03/15/2017 12:00 AM EST Ordered by an unspecified provider. Scanning Provider MEDIA MGR SCAN EXT O RDR/RSLT documented in this encounter Visit Diagnoses Not on filedocumented in this encounter Admitting Diagnoses Diagnosis Breast [...] Given 03/15/2017 2:01 PM EST 1,000 mg bacitracin injection ONCE PRN, Starting on Wed03/15/17 at 0901, Until Wed03/16/17 at 1501, Intra-Operative (Intra-Procedure), Routine Given 03/15/2017 9:01 AM EST 50,000 Units 19- Surgical Site ceFAZolin (ANCEF) 1g in dextrose 5% 50mL 1 g, Intravenous, EVERY 8 HOURS, First dose on Wed03/15/17 at 1315, Until Discontinued, Administer over 30 Minutes, Recovery (Recovery-Hospital Unit), Indication for (Active or Suspected): Prophylaxis New Bag 03/16/2017 5:14 AM EST 1 g 100 mL/hr New Bag 03/15/2017 9:10 PM EST 1 g 100 mL/hr ceFAZolin (ANCEF) injection ONCE PRN, Starting on Wed03/15/17 at 0902, Until Wed03/16/17 at 1501, Intra-Operative (Intra-Procedure), Routine Given 03/15/2017 9:02 AM EST 1 g docusate sodium (COLACE) capsule 100 mg 100 mg, Oral, 2 TIMES DAILY, First dose on Wed03/15/17 at 2100, Until Discontinued, Routine Given 03/16/2017 8:00 AM EST 100 mg Given 03/15/2017 9:10 PM EST 100 mg gentamicin (GARAMYCIN) injection ONCE PRN, Starting on Wed03/15/17 at 0902, Until Wed03/16/17 at 1501, Intra-Operative (Intra-Procedure), Routine Given 03/15/2017 9:02 AM EST 80 mg 19- Surgical Site HYDROmorphone (DILAUDID) injection 0.2 mg 0.2 mg, [...] Given 03/16/2017 7:53 AM EST 600 mg isosulfan blue (LYMPHAZURIN) 1 % injection Soln ONCE PRN, Starting on Wed03/15/17 at 0903, Until Wed03/16/17 at 1501, Intra-Operative (Intra-Procedure), Routine Given 03/15/2017 9:03 AM EST 0.5 mLs 19- Surgical Site Lactobacillus (BACID) tablet 1 tablet 1 tablet, [...] RN)2109 (Given - Provider: Elodia Faustin RN) 513 (Given - Provider: Elodia Faustin RN) ceFAZolin (ANCEF) 1g in dextrose 5% 50mL 1 g, Intravenous, EVERY 8 HOURS, First dose on Wed03/15/17 at 1315, Until Discontinued, Administer over 30 Minutes, Recovery (Recovery-Hospital Unit), Indication for (Active or Suspected): Prophylaxis 1315 (Not Given - Provider: Lyric Watson RN - Reason: See comment - Comment: given 1117 in OR)2109 (New Bag - Provider: Elodia Faustin RN)2139 (Stopped - Provider: Elodia Faustin RN) 513 (New Bag - Provider: Elodia Faustin RN)0544 (Stopped - Provider: Elodia Faustin RN) ceFAZolin (ANCEF) 2g in dextrose 5% 100 mL (COMPLETED) 2 g, Intravenous, ONCE, 1 dose, On Wed03/15/17 at 0700, Administer over 30 Minutes, HOLD FOR OR, Indication for (Active or Suspected): Prophylaxis 08 (Given - Provider: Moises Kim CRNA)1117 (Given [...] from all sources in 24 hours, Routine 075 (Given - Provid er: Pooja Sánchez RN)1227 (Given - Provider: Pooja Sánchez RN) Lactobacillus (BACID) tablet 1 tablet 1 tablet, Oral, DAILY, First dose on Wed03/15/17 at 1700, Until Discontinued, Routine 2110 (Given - Provider: Elodia Faustin RN) 0800 (Given - Provider: Pooja Sánchez RN) polyethylene glycol (MIRALAX) packet 17 g 17 g, Oral, DAILY, First dose on Wed03/15/17 at 1945, Until Discontinued, Routine 1944 (Not Given - Provider: Elodia Faustin RN - Reason: See comment - Comment: takes during the day)2109 (Given - Provider: Elodia Faustin RN) 0800 (Given - Provider: Pooja Sánchez RN) sodium chloride 0.9 % flush 5 mL 5 mL, Intravenous, 2 TIMES DAILY, First dose on Wed03/15/17 at 2100, Until Discontinued, Recovery (Recovery-Hospital Unit), Routine 2099 (Given - Provider: Elodia Faustin RN) 0800 (Given - Provider: Pooja Sánchez RN) Continuous Medication Order 03/14/2017 03/15/2017 03/16/2017 lactated [...] Unit) 1326 (New Bag - Provider: Lyric Watson, RN) 0939 (New Bag - Provider: Pooja Sánchez RN) PRN Medication Order 03/14/2017 03/15/2017 03/16/2017 bacitracin injection (CANCELED) ONCE PRN, Starting on Wed03/15/17 at 0901, Until Wed03/16/17 at 1501, Intra-Operative (Intra-Procedure), Routine 900 (Given - Provider: Ruby Daniel MD) bisacodyl [...] Until Wed03/16/17 at 1501, Intra-Operative (Intra-Procedure), Routine 901 (Given - Provider: Ruby Daniel MD) gentamicin (GARAMYCIN) injection (CANCELED) ONCE PRN, Starting on Wed03/15/17 at 0902, Until Wed03/16/17 at 1501, Intra-Operative (Intra-Procedure), Routine 901 (Given - Provider: Ruby Daniel MD) HYDROmorphone (DILAUDID) injection 0.2 mg 0.2 mg, Intravenous, EVERY 4 HOURS PRN, Starting on Wed03/15/17 at 1655, Until Wed03/16/17 at 1501, Pain, For pain that is not controlled on tylenol and oxycodone, Routine 192 (Given - Provider: Elodia Faustin RN) HYDROmorphone [...] Watson RN)1340 (Given - Provider: Lyric Watson, BECKY)1405 (Given - Provider: Lyric Watson RN)1417 (Given - Provider: Lyric Watson RN)1524 (Given - Provider: Lyric Watson RN) isosulfan blue (LYMPHAZURIN) 1 % injection Soln (CANCELED) ONCE PRN, Starting on Wed03/15/17 at 0903, Until Wed03/16/17 at 1501, Intra-Operative (Intra-Procedure), Routine 09 (Given - Provider: Ruby Daniel MD) lidocaine [...] symptoms unrelieved. 2109 (Given - Provider: Elodia Faustin, BECKY) oxyCODONE (ROXICODONE) immediate release tablet 5 mg (CANCELED) 5 mg, Oral, EVERY 4 HOURS PRN, Starting on Wed03/15/17 at 1301, Until Wed03/15/17 at 1654, Pain, May repeat once after 30-60 minutes if pain unrelieved., Routine 1401 (Given - Provider: Lyric Watson, RN)1523 (Given - Provider: Lyric Watson RN) oxyCODONE (ROXICODONE) immediate release tablet 5-10 mg 5-10 mg, Oral, EVERY 4 HOURS PRN, Starting on Wed03/15/17 at 1653, Until Wed03/16/17 at 1501, Pain, For pain that is not controlled on tylenol 5mg for pain 1-7/10 10mg for pain +7/10, Routine 1817 (Given - Provider: Soumya Stephens RN)1927 (Given - Provider: Elodia Faustin RN)2335 (Given - Provider: Elodia Faustin RN) 0338 (Given - Provider: Elodia Faustin RN)0752 (Given - Provider: Pooja Sánchez, BECKY)1228 (Given - Provider: Pooja Sánchez, BECKY) prochlorperazine (COMPAZINE) injection 10 mg 10 mg, [...] Routine documented in this encounter Care Teams Rental Clerk Tool And Equipment Relationship Specialty Start Date End Date Radha Acuna MD [address] [place] [id number] PCP - General 08/07/11 documented as of this encounter
--- OUTSIDE RECORDS SUMMARY | 2024-04-07 16:40 | XMS_ITS | Encounter Summary ---
[place] [address] Care Team Providers Care Wood Barker Name Role Phone Radha Acuna MD Primary Care Provider [phone]- [phone] Encounter Details Date Type Department Care Team (Late st Contact Info) Description 04/14/2017 10:00 AM EST Office Visit Hematology [place] [address] Elizabeth Rosales, PT Pain of both breasts; [...] Progress Notes * Elizabeth Rosales, PT - 04/14/2017 10:00 AM EST PHYSICAL THERAPY Progress Note Date of Exam/First treatment: 03/24/17 Date of Onset 03/15/17 Referring Provider: Ruby Negro V Primary Insurance: Payor: [employer] / Plan: [employer] DH EMP / Product Type: *No Product type* / Diagnosis and pertinent co-morbidities: total treatment time: 35minutes total timed code treatment minutes: 1 units of exercise 1 unit manual therapy CURRENT HISTORY: Trina Frances is a 36 y.o. female s/p daisha adjuvant chemo and bilateral mastectomy with expanders placed 0+/8 nodes. Adjuvant Treatment pending: Hormonal, Social: Pt. lives in [facility] with supportive and two young children. 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 Hopes to return to work in 8-12 weeks. Function/exercise history:walked most days for 20 min and did yoga 1 X a week for 60 min. Pain: Achiness on breasts and sides and down center of back. Can't sleep at night due to pain francisco javier Back pain, still sleeping in recline 3-7/10 S: Pt still not sleeping well at night, but better, Back still sore but better. Reaching a little better, sleeping with arms a little more close to head which is comfortable for her. O: Observation: scars healing well, little swelling. TX: MLD in supine X 10 min followed by rom ex with cane over head and snow isaias and torso twist. Excellent increase in rom Added forearm up the wall and child's pose at sink, pt performs these well and knows to do 3-5 of these. No jumping, bouncing or running, wt limit of 5 lbs, but not ready to begin lifting wts for ex yet. 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 Range of motion right12/20 Left 20 R 04/14/17 L 04/14/17 Sh flexion 70 110 80 120 160 165 Sh abduction 60 70 65 75 120 125 Sh ER 40 40 80 80 Sh IR A; Excellent increase in rom and decreased pain. P: See pt when she is back at [employer], pt to continue all home ex for ? Of last appointment GOALS: Therapy Short Term Goals: 2 weeks 1. Increase ROM 10 degrees 2. Decrease pain to 2-5/10 3. Able to sleep in bed Therapy Sales Financial Analyst Goals: 10 weeks 1. Full functional use of UE without discomfort 2. Independent in al home ex documented in this encounter Plan of Treatment Upcoming Encounters Date Type Department Care Team (Late st Contact Info) Description 06/30/2024 4:30 PM EDT Office Visit Hematology [place] [address] Shilpi Gallegos MD [facility] DR HEMATOLOGY [place] [address] documented as of this encounter Visit Diagnoses Diagnosis Pain of both breasts Breast swelling Lump or mass in breast documented in this encounter Care Teams Wood Barker Relationship Specialty Start Date End Date Radha Acuna MD [address] [place] [address] [place] [address] PCP - General 08/07/11 documented as of this encounter
--- OUTSIDE RECORDS SUMMARY | 2024-04-07 16:40 | XMS_ITS | Encounter Summary ---
Author Organization [facility] [place] [address] Care Team Providers Care Blocker Polishing Name Role Phone Radha Acuna MD Primary Care Provider +1- [phone] Reason for Visit * Reason Comments Follow Up Surgery expansion Encounter Details Date Type Department Care Team (Late st Contact Info) Description 03/31/2017 8:40 AM EST Office [place] [address] Tonya Griffith [facility] [place] [address] Surgery follow-up Social History Tobacco Use Types [...] this encounter Patient Instructions * Patient Instructions* Tonya Griffith APRN - 03/31/2017 8:40 AM EST 1. Follow up with Tonya in 2 weeks for expansion 2. Follow up with Dr. Zurita in 3 weeks for expansion and to discuss exchange 3. Limit activities: do not lift > 5 pounds, no pushing, no pulling, no bouncing or running, no chest engaging activities such as push-ups or plank. documented in this encounter Progress Notes * Tonya Griffith APRN - 03/31/2017 8:40 AM EST Plastic Surgery Post Op Note [...] HPI: Pt reports that she is doing ok but has been having difficulty sleeping at night. She reports that she has pain and tightness to bilateral breasts. She is scheduled to see her Physical Therapist, Oncologist as well as her General Surgeon Dr. Negro today. She reports that she has been having sharp pains on the sides of her breasts. She reports that she has been taking Tylenol for discomfort. She has questions when she will be able to have her exchange. She reports that she had lympnodes removed from the right side and appreciates numbness to the area. Patient reports that during expansion her discomfort level increased. She reports that when she lays on her left side that she can heara bubbling sound and can feel fluid moving. She does express that she does want to have a bigger breast size than she was pre-op. Examination: Patient is alert, conversant, comfortable, ambulating Flaps well perfused. NACs well perfused. Claims Counsel in good position, maintaining fill volume. Incisions intact. No collection, no erythema, no evidence of cellulitis. Procedure: Today, under sterile conditions, 25 ml of saline was placed bilaterally to expanders bringing total to 125 ml on each side. Impression: Trina Frances is a 36 y.o. female who was seen today for follow-up after the above procedure. Please see the operative note for details. She is doing well without complaints. Discussed only expanding a small amount at today's visit due to her discomfort. Plan: 1. Follow up with Tonya in 2 weeks for expansion 2. Follow up with Dr. Zurita in 3 weeks for expansion and to discuss exchange 3. Limit activities: do not lift > 5 pounds, no pushing, no pulling, no bouncing or running, no chest engaging activities such as push-ups or plank. documented in this encounter Plan of Treatment Upcoming Encounters Date Type Department Care Team (Late st Contact Info) Description 06/30/2024 4:30 PM EDT Office Visit Hematology [place] [address] Shilpi Gallegos MD [facility] [address] [place] [address] documented as of this encounter Visit Diagnoses Diagnosis Surgery follow-up Follow-up examination, following unspecified surgery documented in this encounter Care Teams Blocker Polishing Relationship Specialty Start Date End Date Radha Acuna MD [address] [place] [address] [place] [address] PCP - General 08/07/11 documented as of this encounter
--- OUTSIDE RECORDS SUMMARY | 2024-04-07 16:40 | XMS_ITS | Encounter Summary ---
[place] [address] Care Team Providers Care Supervisor Cleaning And Annealing Name Role Phone Radha Acuna MD Primary Care Provider +1- [phone] Encounter Details Date Type Department Care Team (Late st Contact Info) Description 04/28/2017 10:45 AM EST Office Visit Hematology [place] [address] Elizabeth Rosales, PT Breast swelling Social History Tobacco Use Types [...] Progress Notes * Elizabeth Rosales, PT - 04/28/2017 10:45 AM EST PHYSICAL THERAPY Progress Note Date of Exam/First treatment: 03/24/17 Date of Onset 03/15/17 Referring Provider: Ruby Negro V Primary Insurance: Payor: [employer] / Plan: [employer] DH EMP / Product Type: *No Product type* / Diagnosis and pertinent co-morbidities: total treatment time: 35minutes total timed code treatment minutes: 1 units of manual therapy 1 home care CURRENT HISTORY: Trina Frances is a 36 y.o. female s/p daisha adjuvant chemo and bilateral mastectomy with expanders placed 0+/8 nodes. Adjuvant Treatment pending: Hormonal, Social: Pt. lives in [facility] with supportive and two young children. 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 Hopes to return to work in 8-12 weeks. Function/exercise history:walked most days for 20 min and did yoga 1 X a week for 60 min. Pain: Achiness on breasts and sides and down center of back. Can't sleep at night due to pain francisco javier Back pain, still sleeping in recline 3-7/10 S: Pt sleep is better, but not great. All Movement is better. 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 Mostly decided not to go on to have XRT. Pt continuing to ex well at home without bouncing etc. O: Discussion about why a sleeve is not advisable unless pt has lymphedema already. Observation: scars healing well, little swelling, scar tight TX MLD, MFR X 15 in supine Range of motion right03/31 Left 03/31 R 04/14/17 L 04/14/17 04/28/17 Sh flexion 70 110 80 120 160 165 170 Sh abduction 60 70 65 75 120 125 150 Sh ER 40 40 80 80 90 Sh IR A; Excellent increase in rom function. Pt should continue to do well with home program. P:no follow up planned at this time GOALS: Therapy Short Term Goals: 2 weeks 1. Increase ROM 10 degrees 2. Decrease pain to 2-5/10 3. Able to sleep in bed Therapy Correction Goals: 10 weeks 1. Full functional use of UE without discomfort on going 2. Independent in al home ex met documented in this encounter Plan of Treatment Upcoming Encounters Date Type Department Care Team (Late st Contact Info) Description 06/30/2024 4:30 PM EDT Office Visit Hematology [place] [address] Shilpi Gallegos MD [facility] DR [place] [address] documented as of this encounter Visit Diagnoses Diagnosis Breast swelling Lump or mass in breast documented in this encounter Care Teams Supervisor Cleaning And Annealing Relationship Specialty Start Date End Date Radha Acuna MD [address] [place] [address] [place] [address] PCP - General 08/07/11 documented as of this encounter
--- OUTSIDE RECORDS SUMMARY | 2024-04-07 16:41 | XMS_ITS | Encounter Summary ---
Author Organization [facility] [place] [address] Care Team Providers Care Hosting Engineer Name Role Phone Radha Acuna MD Primary Care Provider +1- [phone] Encounter Details Date Type Department Care Team (Late st Contact Info) Description 03/09/2017 Telephone General [place] [address] Tamiko Zambrano RN Social History Tobacco Use Types Packs/Day [...] encounter Miscellaneous Notes * Telephone Encounter - Tamiko Reid RN - 03/09/2017 3:45 PM EST Images from the original note were not included. Trina calls today to ask if Dr. Negro needs to have any further testing done prior to her having surgery on Wednesday. She notes she has a sinus infection for which she is being treated; antibiotics will end on Wednesday. I will pass this on to Dr. Negro. Ruby Negro MD Surgery Called patient to discuss recent lab results. We discussed due to her critically low WBC, ANC and plat, we need to delay surgery. I will let the med onc providers direct care over the next few weeks and will plan on repeat labs for preop purposes the last week of Feb in preparation for planned new surgery date of Mar 15. Patient is aware of the risks of proceeding with low counts (bleeding, infection, wound complications). ? CVA Telephone EncounterEncounter Date: 03/02/2017Radha Riggins RN Hematology and Oncology []Hide copied text Message received: Patient calling stating she is sick today and is wondering if you have any suggestions since she is neutropenic. Please call [phone] ?? T/C To Patient: she reports since yesterday she has had a terrible sore throat and aching muscles. She denies fevers or chills. Denies cough, nasal congestion or sinus pressure, sore throat and muscle aches are the only symptoms she has at this time. She is wondering if she can take tylenol to helpwith aches. ?? Plan: Advised patient ok to take tylenol for sore throat or aches however to avoid motrin as platelets remain low. Advised to take temp prior to taking tylenol to prevent masking a fever. Advised to continue to monitor and call with worsening symptoms, fever or further questions or concerns. ?? Patient in agreement and intends to comply, she knows to call 02/11 with questions or concerns ?? Message per MD: Ronnie Garcia, I think I'd like Trina to get another CBC if she's going to be taking tylenol, even if she takes her fever before taking it, she may not be able to mount a fever if she's neutropenic. Hopefully, her ANC is back to normal. I'll put the order in, could you call her and have her go to her local lab ?? Lab results received and reviewed, ANC 5.01, platelets 74. Discussed with MD, patient may take tylenol PRN as labs have improved. ?? T/C To Patient: made her aware of the above per MD. She is in agreement. She wonders if she should get her flu shot now. Note to MD for further recommendation regarding flu shot. ? documented in this encounter Plan of Treatment Upcoming Encounters Date Type Department Care Team (Late st Contact Info) Description 06/30/2024 4:30 PM EDT Office Visit Hematology [place] [address] Shilpi Gallegos MD [facility] DR HEMATOLOGY AND ONCOLOGY [address] documented as of this encounter Visit Diagnoses Not on filedocumented in this encounter Care Teams Hosting Engineer Relationship Specialty Start Date End Date Radha Acuna MD [address] [place] [address] [place] [address] PCP - General 08/07/11 documented as of this encounter
--- OUTSIDE RECORDS SUMMARY | 2024-04-07 16:41 | XMS_ITS | Encounter Summary ---
[place] [address] Care Team Providers Care Heeler Name Role Phone Radha Acuna MD Primary Care Provider +1- [phone] Reason for Visit * Reason Onset Date Comments Questions 02/09/2017 Encounter Details Date Type Department Care Team (Late st Contact Info) Description 02/09/2017 Telephone Hematology [place] [id number] Flory Pitt RN Questions Social History Tobacco Use Types Packs/Day Years [...] encounter Miscellaneous Notes * Telephone Encounter - Flory Foster RN - 02/09/2017 12:34 PM EDT Message received from patient care secretary: Dr. Gallegos PtArnoldo Mena has a question about continuing her infusions every three weeks. Rosy Keller's last note said to return in Mar. Please call [phone] RN performed full chart review. Nebo plan complete through Cycle 6 at this point. Physician's last office note states to follow up in 2 months post surgery (Patient scheduled on March 30 for follow up). S/O: Patient reports that she did not know whether or not she was supposed to continue q 3 week Herceptin infusions. RN reported above with patient and that she should definitely not be getting it inthe weeks prior to surgery. Patient reports Dr. Gallegos said that surgery should be about 4 weeks out from last chemotherapy. Patient noted it was slightly sooner than 4 weeks, and reports to RN that she will call surgery and discuss with them to see if this is okay. Assessment/Plan: RN to follow up with Dr. Gallegos when she gets back from vacation to see if shewould like to restart infusions before her March visit, per last office note there is nothing that indicates this. Patient infusions not due during time Dr. Gallegos is on vacation, therefore itis okay to check in with her on 02/22/2017 about patient future infusion schedule. Above reviewed with patient. Pt in agreement with plan and knows to call clinic with any concerns and/or questions. documented in this encounter Plan of Treatment Upcoming Encounters Date Type Department Care Team (Late st Contact Info) Description 06/30/2024 4:30 PM EDT Office Visit Hematology [place] [address] Shilpi Gallegos MD [facility] [address] [place] [address] documented as of this encounter Visit Diagnoses Not on filedocumented in this encounter Care Teams Heeler Relationship Specialty Start Date End Date Radha Acuna MD [address] [place] [address] [place] [address] PCP - General 08/07/11 documented as of this encounter
--- OUTSIDE RECORDS SUMMARY | 2024-04-07 16:41 | XMS_ITS | Encounter Summary ---
Author Organization [facility] Address [facility] [place] [address] Care Team Providers Care Antenna Specialist Name Role Phone Radha Acuna MD Primary Care Provider +1- [phone] Reason for Visit * Treatment/Therapy Plan Authorization (Routine) - Closed Specialty Diagnoses / Procedures Referred By Clara cisneros Referred To Contact Hematology and Oncology Diagnoses Invasive ductal carcinoma of right breast Procedures INJECTION, PERTUZUMAB, 1 MG TC TRASTUZUMAB, 10MG, INJECTION (HERCEPTIN) TC DOCETAXEL, 1MG, INJECTION TC CARBOPLATIN, 50MG, INJECTION (PARAPLATIN) TC PEGFILGRASTIM, 6MG, INJECTION TC PALONOSETRON HCL, 25MCG, INJECTION (ALOXI) Shilpi Gallegos MD [facility] DR HEMATOLOGY [place] [address] [address] Referral ID Status Reason Start Date Expiration Date Visits Re quested Visits Authorized [id number] Closed 10/02/2016 04/03/2017 99 99 Encounter Details Date Type Department Care Team (Latest Contact Info) Description 01/26/2017 8:19 AM EDT Hospital Encounter [place] [address] Drug-induced anemia; Invasive ductal carcinoma of right breast Discharge [...] mg by mouth daily. 09/19/2019 potassium chloride (K-DUR/KLOR-CON) 20 mEq Tab Sust.Rel. Particle/Crystal take 1 tablet by mouth once daily 0 12/08/2016 02/04/2017 potassium chloride 20 mEq Tablet Sustained Release [...] as of this encounter Progress Notes * Mary Anne Wright RN - 01/26/2017 8:35 AM EDT Patient Name: Trina Frances Patient Age: 36 y.o. Birthdate: 1980 Admit date: 01/26/2017 Attending Physician: No att. providers found Access visit. See MAR and/or flowsheet. documented in this encounter Miscellaneous Notes * Addendum Note - Zaida Dawson RN - 01/26/2017 10:01 AM EDTEncounter addended by: Zaida Dawson RN on: 01/26/2017 10:01 AM
Actions taken: MAR administration accepted, Flowsheet accepted documented in this encounter Plan of Treatment Upcoming Encounters Date Type Department Care Team (Late st Contact Info) Description 06/30/2024 4:30 PM EDT Office Visit [place] [address] Shilpi Gallegos MD [facility] [place] [address] documented as of this encounter Procedures Procedure Name Priority Date/Time Associated Diagnosis Comments SCAN, PERIPHERAL BLOOD STAT 7 8:30 AM EDT HEMOGRAM STAT 01/26/2017 8:30 AM EDT Drug-induced anemia Invasive ductal carcinoma of right breast DIFFERENTIAL, AUTOMATED STAT 01/26/2017 8:30 AM EDT Drug-induced anemia Invasive ductal carcinoma of right breast CBC (WITH DIFF) STAT 01/26/2017 8:30 AM EDT Drug-induced anemia Invasive ductal carcinoma of right breast COMPREHENSIVE METABOLIC PANEL STAT 01/26/2017 8:30 AM EDT Drug-induced anemia Invasive ductal carcinoma of right breast documented in this encounter Results * Scan, Peripheral Blood (01/26/2017 8:30 AM EDT) Plat estimate Decreased [facility] RBC Morphology Abnormal [facility] Macrocyte 1-5 /HPF [facility] Blood specimen (specimen) 01/26/2017 8:30 AM EDT 01/26/2017 8:40 AM EDT Narrative Resulting Agency Comment Spec In Lab Shilpi Gallegos MD HEMATOLOGY ORDERABL ES [facility] [place] [address] * Differential, Automated (01/26/2017 8:30 AM EDT) Pathologist [facility] Neutrophil % 51.1 % [facility] Neutrophil Absolute 1.91 1.70 - 6.10 x10(3)/[facility] Lymph % 37.2 % [facility] Lymphocytes Abs 1.4 0.9 - 3.2 x10(3)/[facility] Monocyte % 11.2 % [facility] Monocyte Abs 0.4 0.3 - 0.9 x10(3)/[facility] Eos % 0.0 % [facility] Eosinophils Abs 0.0 0.0 - 0.4 x10(3)/[facility] Basophil % 0.0 % [facility] Baso Absolute 0.0 0.0 - 0.1 x10(3)/[facility] Immature Gran % 0.50 % [facility] Comment: Immature granulocytes(IG's)percentage and absolute count will include metamyelocytes, myelocytes, and promyelocytes. Blood smears from CBCs yielding IG's will be scanned manually for concordance. If this scan disagrees with the automated IG or if promyelocytes are noted, a manual differential will be performed. Immature Gran Absolute 0.02 0.00 - 0.04 x10(3)/[facility] Blood specimen (specimen) 01/26/2017 8:30 AM EDT 01/26/2017 8:40 AM EDT Narrative Resulting Agency Comment Spec In Lab Shilpi Gallegos MD HEMATOLOGY ORDERABL ES [facility] [place] [address] * (ABNORMAL) Hemogram (01/26/2017 8:30 AM EDT) White Blood Cell 3.7(L) 4.0 - 9.5 x10(3)/[facility] Red Blood Cell 2.34(L) 4.00 - 5.21 x10(6)/[facility] Hemoglobin 8.8(L) 11.7 - 15.5 gm/dL [facility] Hematocrit 24.6(L) 35.7 - 45.8 % [facility] Mean Cell Volume 105.1(H) 82.6 - 94.4 fL [facility] Mean Cell Hemoglobin 37.6(H) 27.1 - 32.0 pg [facility] Mean Cell Hemoglobin Concentration 35.8(H) 31.7 - 35.0 gm/dL [facility] Platelet 30(L) 145 - 357 x10(3)/[facility] RDW Standard Deviation 49.0(H) 37.0 - 46.0 fL [facility] RDW coefficient of variation 14.7(H) 11.5 - 14.1 % [facility] Mean Platelet Volume 11.6 7.6 - 12.9 [facility] NRBC% auto 0.0 % [facility] NRBC Absolute 0.000 0.000 - 0.000 x10(3)/[facility] Blood specimen (specimen) 01/26/2017 8:30 AM EDT 01/26/2017 8:40 AM EDT Narrative Resulting Agency Comment Spec In Lab Shilpi Gallegos MD HEMATOLOGY ORDERABL ES [facility] [place] [address] * (ABNORMAL) Comprehensive metabolic panel (non-fasting) (01/26/2017 8:30 AM EDT) Glucose 87 65 - 199 mg/dL [facility] Comment:Diabetes: >=200 mg/d L plus symptoms Blood Urea Nitrogen 13 8 - 18 mg/dL [facility] Creatinine 0.75 0.70 - 1.20 mg/dL [facility] Comment: Please note that the pediatric reference intervals supplied above were not validated at [facility]. Results from pediatric patients should be interpreted in conjunction to the patient's age, height and muscle mass. Sodium 141 135 - 145 mmol/L [facility] Potassium 3.8 3.5 - 5.0 mmol/L [facility] Comment: Please note: ??Patients with WBC >100,000 may have falsely elevated Potassium levels. ??For accurate Potassium quantification in these patients send serum separator tube (gold top) for subsequent determinations. ??Contact the Clinical Chemistry Laboratory if there are any questions. Chloride 101 98 - 107 mmol/L [facility] Carbon Dioxide 28 22 - 31 mmol/L [facility] Anion Gap 12 5 - 15 mmol/L [facility] Calcium 10.1 8.5 - 10.5 mg/dL [facility] Protein, Total 7.1 6.1 - 8.0 gm/dL [facility] Albumin 4.4 3.2 - 5.2 gm/dL [facility] Aspartate Aminotransferase 37(H) 0 - 30 unit/L [facility] Alanine Aminotransferase 30 0 - 30 unit/L [facility] Alkaline Phosphatase 75 40 - 104 unit/L [facility] Bilirubin, Total 0.2 0.2 - 1.3 mg/dL [facility] Est Glomerular Filtration Rate >60 >=60 [facility] Comment: The reported eGFR should be multiplied by 1.2 for patients. The MDRD is not an appropriate measure of renal function for patients with body mass extremes or in patients with acute kidney failure. http://[employer]/DHnkdep http://[employer]/DHMCnkf Blood specimen (specimen) 01/26/2017 8:30 AM EDT 01/26/2017 8:40 AM EDT Narrative Resulting Agency Comment Spec In Lab Shilpi Gallegos MD CHEMISTRY ORDERABLE S [facility] [place] [address] documented in this encounter Visit Diagnoses Diagnosis Drug-induced anemia Other specified anemias Invasive ductal carcinoma of right breast documented in this encounter Administered Medications Inactive Administered Medications - up to 3 most recent administrations Medication Order MAR Action Action Date Dose Rate Site heparin, porcine 100 unit/mL flush 500 Units 500 Units, Intravenous, ONCE PRN, Starting on Wed01/26/17 at 0822, Until Wed01/27/17 at 0435, Line Care, Refer to Intravenous (IV) Procedure: Accessing Implanted Vascular Access Devices (654) procedure and/or Intravenous (IV) Job Aid: Adult Flushing & Catheter Care (8940) job aid for additional information regarding guidelines and administration., Routine Given 01/26/2017 10:00 AM EDT 500 Units sodium chloride 0.9 % flush 5-20 mL 5-20 mL, Intravenous, EVERY 1 MIN PRN, Starting on Wed01/26/17 at 0822, Until Wed01/27/17 at 0435, Line Care, Flush pertains to all indwelling lines. Flush per protocol found in the job aid using the link provided on this medication record. Refer to Intravenous (IV) Job Aid: Adult Flushing & Catheter Care (8009) job aid for additional information regarding guidelines and administration., Routine Given 01/26/2017 8:34 AM EDT 20 mLs documented in this encounter Care Teams Antenna Specialist Relationship Specialty Start Date End Date Radha Acuna MD [address] [place] [address] [place] [address] PCP - General 08/07/11 documented as of this encounter
--- OUTSIDE RECORDS SUMMARY | 2024-04-07 16:41 | XMS_ITS | Encounter Summary ---
[place] [address] Care Team Providers Care Professor Of Theatre Name Role Phone Radha Acuna MD Primary Care Provider +1- [phone] Encounter Details Date Type Department Care Team (Late st Contact Info) Description 12/16/2016 8:30 AM EDT Office Visit [place]ology [place] [address] Dash Cooney MD Drug-induced anemia; Invasive ductal carcinoma of right breast Social [...] Sign Reading Time Taken Comments Blood Pressure 112/69 12/16/2016 7:55 AM EDT Pulse 63 12/16/2016 7:55 AM EDT Temperature 36.4 ??C (97.5 ??F) 12/16/2016 7:55 AM ED T Respiratory Rate 18 12/16/2016 7:55 AM EDT Oxygen Saturation 100% 12/16/2016 7:55 AM EDT Inhaled Oxygen Concentration - - Weight 49.5 kg (109 lb 3.2 oz) 12/16/2016 7:55 A M EDT Height 155.8 cm (5' 1.34) 12/16/2016 7:55 AM ED T Body Mass Index 20.41 12/16/2016 7:55 AM EDT documented in this encounter Progress Notes * Dash Cooney MD - 12/16/2016 8:30 AM EDT Subjective: Patient ID: Trina Frances is a 36 y.o. female. Cc: breast cancer Interval history: Doing well. Had week off due to low plts last week. Today feels ready to resume chemo. No bleeding or more nausea. HPI Clinical Right breast cancer, overlapping sites, clinical [id number] ER/VA + HER2 + ratio 10.0 Right breast axillary ultrasound biopsy negative PET scan negative ? Superior cervical node abnormality, biopsy 10/02/16 BRCA panel testing negative for germline mutations. Trina Frances is a 36 y.o. woman who presents with newly diagnosed right breast cancer. In 07/2016,she noted a tender right breast lump without skin changes or nipple discharge. 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 On 09/11/16, she underwent a mammogram followed by ultrasound showing 2 right anca ast masses and right axilla node 1.2cm. Biopsy showed invasive ductal carcinoma, grade 2 with DCIS.HER2+ (FISH HER2:CEP-17 = 10), ER+/VA+ (11-90%). A right axilla node biopsy was [...] Neoadjuvant regimen: TCH-P x 6 cycles Cycle 1 TCH-P 10/05/16 Review of Systems No new SHAY, cough, SOB, fevers, bleeding, change in bowel or bladder function. ROS otherwise neg. Objective: Physical Exam Vitals: 12/16/16 0755 BP: 112/69 Pulse: 63 Resp: 18 Temp: 36.4 ??C (97.5 ??F) Constitutional: She is oriented to person, place, and time. She appears well- developed and well-nourished. No distress. HENT: Head: Normocephalic and atraumatic. Sclera nonicteric Oropharynx is clear and moist. No oropharyngeal exudate. Cardiovascular: Normal rate, regular rhythm, normal heart sounds and intact distal pulses. Exam reveals no gallop and no friction rub. No murmur heard. Pulmonary/Chest: Effort normal and breath sounds normal. No respiratory distress. She has no wheezes. She has no rales. She exhibits no tenderness. Right breast exhibits mass. Right breast exhibits no inverted nipple, no nipple discharge, no skin change and [...] place, and time. She has normal reflexes. No cranial nerve deficit. Coordination normal. Skin: Skin is warm and dry. No rash noted. She is not diaphoretic. No erythema. No pallor. Psychiatric: She has a normal mood and affect. Her behavior is normal. Judgment and thought contentnormal. Recent Results (from the past 24 hour(s)) Hemogram Result Value Ref Range WBC 3.9 (L) 4.0 - 9.5 x10(3)/mcL RBC 2.71 (L) 4.00 - 5.21 x10(6)/mcL Hemoglobin 9.4 (L) 11.7 - 15.5 gm/dL Hematocrit 27.5 (L) 35.7 - 45.8 % MCV 101.5 (H) 82.6 - 94.4 fL MCH 34.7 (H) 27.1 - 32.0 pg MCHC 34.2 31.7 - 35.0 gm/dL Platelets 185 145 - 357 x10(3)/mcL RDWSD 74.3 (H) 37.0 - 46.0 fL RDWCV 21.4 (H) 11.5 - 14.1 % MPV 9.4 7.6 - 12.9 fL nRBC % Auto 0.0 % nRBC Abs Auto 0.000 0.000 - 0.000 x10(3)/mcL Differential, Automated Result Value Ref Range Neutrophils % 51.2 % Neutr Abs (ANC) 1.99 1.70 - 6.10 x10(3)/mcL Lymphocytes % 33.7 % Lymphocytes Abs 1.3 0.9 - 3.2 x10(3)/mcL Monocytes % 11.3 % Monocyte Abs 0.4 0.3 - 0.9 x10(3)/mcL Eosinophils % 3.3 % Eosinophils Abs 0.1 0.0 - 0.4 x10(3)/mcL Basophils % 0.0 % Basophils Abs 0.0 0.0 - 0.1 x10(3)/mcL Immature Gran % 0.50 % Dalia Gran Abs 0.02 0.00 - 0.04 x10(3)/mcL Antibody screen Result Value Ref Range Expires at 2359 on: 12/19/2016 ABORH Recheck Status Result Value Ref Range ABORH Type Recheck Completed Assessment and Plan: Breast cancer--Stage I her2+ . Partial clinical response so far. Doing better with chemotherapy andsupportive care. Chemo held last week - will proceed today at 20% dose reduction. Hypokalemia - she'll resume oral K. Orders signed. documented in this encounter Plan of Treatment Upcoming Encounters Date Type Department Care Team (Late st Contact Info) Description 06/30/2024 4:30 PM EDT Office Visit [place]ematology [place] [address] Shilpi Gallegos MD [facility] DR HEMATOLOGY [place] [address] documented as of this encounter Visit Diagnoses Diagnosis Drug-induced anemia Other specified anemias Invasive ductal carcinoma of right breast documented in this encounter Care Teams Professor Of Theatre Relationship Specialty Start Date End Date Radha Acuna MD [address] [place] [address] [place] [address] PCP - General 08/07/11 documented as of this encounter
--- OUTSIDE RECORDS SUMMARY | 2024-04-07 16:41 | XMS_ITS | Encounter Summary ---
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 disability Financial Concerns: Difficulty with Transportation Application(s) for Dehydrogenation Operator Head Disease-specific Programs (Pt was approved for assistance with car payment from [facility]) documented in this encounter Plan of Treatment Upcoming Encounters Date Type Department Care Team (Late st Contact Info) Description 06/30/2024 4:30 PM EDT Office Visit Hematology [place] [address] Shilpi Gallegos MD [facility] DR [place] [address] documented as of this encounter Visit Diagnoses Not on filedocumented in this encounter Care Teams Papier Mache Molder Relationship Specialty Start Date End Date Radha Acuna MD [address] [place] [address] [place] [address] PCP - General 08/07/11 documented as of this encounter
--- OUTSIDE RECORDS SUMMARY | 2024-04-07 16:41 | XMS_ITS | Encounter Summary ---
[place] [address] Care Team Providers Care Phosphoric Acid Operator Name Role Phone Radha Acuna MD Primary Care Provider +1- [phone] Reason for Visit * Reason Comments Abnormal Lab Encounter Details Date Type Department Care Team (Late st Contact Info) Description 02/17/2017 Telephone [place] [phone] Ana Laura Lozano RN Abnormal Lab Social History Tobacco Use Types Packs/Day Years [...] encounter Miscellaneous Notes * Telephone Encounter - Ana Laura Lozano, RN - 02/17/2017 2:34 PM EST Ms. Frances is scheduled for mastectomy with reconstruction on 02/22/[address] Drs[address] Negro and Yudith. Dr. Negro ordered CBC and CMP to be done pre-op - received call from [facility] on critical labs: Plt 29 ANC 0.35 CMP WNL except K+ 3.0. WBC 2.1 RBC 2.46 Hg 9.0 Hct 25.4 Call to oncology team - they will call pt. Msg left for Dr Negro as she is away from [facility] [place] this week. Discussed with Dr Mcnamara who will also communicate with the surgical team about how to proceed. documented in this encounter Plan of Treatment Upcoming Encounters Date Type Department Care Team (Late st Contact Info) Description 06/30/2024 4:30 PM EDT Office Visit Hematology [place] [address] Shilpi Gallegos MD [facility] DR HEMATOLOGY [place] [address] documented as of this encounter Visit Diagnoses Not on filedocumented in this encounter Care Teams Phosphoric Acid Operator Relationship Specialty Start Date End Date Radha Acuna MD [address] [place] [address] [place] [address] PCP - General 08/07/11 documented as of this encounter
--- OUTSIDE RECORDS SUMMARY | 2024-04-07 16:41 | XMS_ITS | Encounter Summary ---
Author Organization [facility] [address] Care Team Providers Care Retail Analyst Name Role Phone Radha Acuna MD Primary Care Provider +1- [phone] Encounter Details Date Type Department Care Team (Late st Contact Info) Description 01/26/2017 Notes [place] [phone] Destiney Diggs MSW Social History Tobacco Use [...] Progress Notes * Destiney Diggs MSW - 01/26/2017 11:15 AM EDT [facility] met briefly with pt and her this morning to give them information about financial assistance programs. Pt has been receiving chemotherapy and has not been able to work her usual schedule.I will submit an application on pt's behalf to the Cancer Pt Support program for help with her car payment. Pt was also given an application to the [employer] to apply for help with her household expenses. - [facility] will continue to provide support and resources to pt. documented in this encounter Plan of Treatment Upcoming Encounters Date Type Department Care Team (Late st Contact Info) Description 06/30/2024 4:30 PM EDT Office Visit Hematology [place] [address] Shilpi Gallegos MD [facility] [address] [place] [address] documented as of this encounter Visit Diagnoses Not on filedocumented in this encounter Care Teams Retail Analyst Relationship Specialty Start Date End Date Radha Acuna MD [address] [place] [address] [place] [address] PCP - General 08/07/11 documented as of this encounter
--- OUTSIDE RECORDS SUMMARY | 2024-04-07 16:41 | XMS_ITS | Encounter Summary ---
Author Organization [facility] [place] [address] Care Team Providers Care Loan Documentation Specialist Name Role Phone Radha Acuna MD Primary Care Provider +1- [phone] Encounter Details Date Type Department Care Team (Late st Contact Info) Description 02/22/2017 Telephone Hematology [place] [address] Myesha Urena Social History Tobacco Use Types Packs/Day Years [...] encounter Miscellaneous Notes * Telephone Encounter - Myesha Urena, RN - 02/22/2017 9:26 AM EST ----- Message from Thi Gardner sent at 02/22/2017 8:12 AM EST ----- Regarding: Questions Contact: Good Morning, Patient calling asking for some follow up blood work (not sure what kind), and ask a question aboutHerceptin. Please call [phone]. Thank you Thi RN spoke with patient who feels she cant leave [facility]. No bleeding, just lots of bruising, no fevers no new cough, no trouble voiding. Delayed surgery. New date is Mar 15. Herceptin every 3 weeks for a year. Nothing scheduled. Last had on 02/02. RN discussed with Dr. Gallegos, her response: She should get it checked on Wednesday, a week after the last one. I put in an order for an external CBC. She doesn't have to stay in the house but she should use precautions for infection similar to when she was getting chemo until her counts recover. Make sure she's eating a good healthy diet that is high in protein and iron. We will resume herceptin4-6 wks after her surgery, I should be seeing her a week or so after her surgery to go over all that. RN discussed with patient, educated on infection/neutropenic precautions. Notified patient to call the clinic if she develops a fever or any increased bleeding. Pt in agreement with plan and knows to call clinic with any concerns and/or questions. documented in this encounter Plan of Treatment Upcoming Encounters Date Type Department Care Team (Late st Contact Info) Description 06/30/2024 4:30 PM EDT Office Visit [place] [address] Shilpi Gallegos MD [facility] DR [place] [address] documented as of this encounter Visit Diagnoses Not on filedocumented in this encounter Care Teams Loan Documentation Specialist Relationship Specialty Start Date End Date Radha Acuna MD [address] [place] [address] [place] [address] PCP - General 08/07/11 documented as of this encounter
--- OUTSIDE RECORDS SUMMARY | 2024-04-07 16:41 | XMS_ITS | Encounter Summary ---
Author Organization [facility] [place] [address] Care Team Providers Care Financial Operations Consultant Name Role Phone Radha Acuna MD Primary Care Provider +1- [phone] Encounter Details Date Type Department Care Team (Late st Contact Info) Description 02/19/2017 External Results Hematology [place] [phone] Flory Pitt RN Social History Tobacco Use Types Packs/Day [...] EDT Office Visit Hematology [place] [phone] Shilpi Gallegos MD [facility] [place] [address] documented as of this encounter Procedures Procedure Name Priority Date/Time Associated Diagnosis Comments CBC (WITH DIFF) Routine 02/19/2017 10:08 AM EST documented in this encounter Results * (ABNORMAL) CBC (with Diff) (02/19/2017 10:08 AM EST) White Blood Cell 2.5(SHANK STITCHER AL/ABN) Hemoglobin 8.9(SHANK STITCHER AL/ABN) Hematocrit 25.1(EXTER NAL/ABN) Platelet 25(ExtLL) Neutrophil Absolute (ANC) - Automated 0.86(ExtLL ) Lymph Absolute Manual 1.075(Exte rnal Lab) Blood specimen (specimen) 02/19/2017 10:08 AM EST Historical Provider HEMATOLOGY ORDERA BLES documented in this encounter Visit Diagnoses Not on filedocumented in this encounter Care Teams Financial Operations Consultant Relationship Specialty Start Date End Date Radha Acuna MD [address] [place] [address] [place] [address] PCP - General 08/07/11 documented as of this encounter
--- OUTSIDE RECORDS SUMMARY | 2024-04-07 16:41 | XMS_ITS | Encounter Summary ---
[place] [address] Care Team Providers Care Milling General Superintendent Name Role Phone Radha Acuna MD Primary Care Provider +1- [phone] Reason for Visit * Reason Onset Date Comments Results 02/18/2017 Encounter Details Date Type Department Care Team (Late st Contact Info) Description 02/18/2017 Telephone Hematology [place] [phone] Abi East COLORIST FORMULATOR ROOM Results Social History Tobacco Use Types Packs/Day Years [...] Telephone Encounter - Abi East RN - 02/18/2017 11:05 AM EST ANC 0.38, plts 24 Spoke w/ pt who stated that she didn't have any chills or fevers last night. Denies other bleeding/infectious s/s. Plan per Jess Selby APRN: repeat CBC tomorrow, call for fever/infectious s/s Pt in agreement with plan and knows to call clinic with any concerns and/or questions. documented in this encounter Plan of Treatment Upcoming Encounters Date Type Department Care Team (Late st Contact Info) Description 06/30/2024 4:30 PM EDT Office Visit Hematology [place] [address] Shilpi Gallegos MD [facility] DR HEMATOLOGY [place] [address] documented as of this encounter Visit Diagnoses Diagnosis Malignant neoplasm of right female breast, unspecified estrogen receptor status, unspecified site of breast documented in this encounter Care Teams Milling General Superintendent Relationship Specialty Start Date End Date Radha Acuna MD [address] [place] [address] [place] [address] PCP - General 08/07/11 documented as of this encounter
--- OUTSIDE RECORDS SUMMARY | 2024-04-07 16:41 | XMS_ITS | Encounter Summary ---
Author Organization [facility] [place] [address] Care Team Providers Care Fruit And Vegetable Classer Name Role Phone Radha Acuna MD Primary Care Provider +1- [phone] Reason for Visit * Reason Comments Breast Cancer * Treatment/Therapy Plan Authorization (Routine) - Closed Specialty Diagnoses / Procedures Referred By Contgabriela t Referred To Contact Hematology and Oncology Diagnoses Invasive ductal carcinoma of right breast Procedures INJECTION, PERTUZUMAB, 1 MG TC TRASTUZUMAB, 10MG, INJECTION (HERCEPTIN) TC DOCETAXEL, 1MG, INJECTION TC CARBOPLATIN, 50MG, INJECTION (PARAPLATIN) TC PEGFILGRASTIM, 6MG, INJECTION TC PALONOSETRON HCL, 25MCG, INJECTION (ALOXI) Shilpi Gallegos MD [facility] DR HEMATOLOGY [place] [address] [address] Referral ID Status Reason Start Date Expiration Date Visits Re quested Visits Authorized [id number] Closed 10/02/2016 04/03/2017 99 99 Encounter Details Date Type Department Care Team (Latest Contact Info) Description 12/16/2016 7:13 AM EDT - 12/16/2016 11:59 PM EDT Hospital Encounter Hematology [place] [address] Drug-induced anemia; Invasive ductal carcinoma [...] Sig Dispensed Refills Start Date End Date multivitamin (THERAGRAN) TabletIndications:has 500mg of calcium and 1600iu of Vit D Take 1 tablet by mouth daily. Indications: has 500mg of calcium and 1600iu of Vit D potassium chloride (K-DUR/KLOR-CON) 20 mEq Tab Sust.Rel. Particle/Crystal take 1 tablet by mouth once daily 0 12/08/2016 02/04/2017 sulfacetamide (BLEPH-10) 10 % Drops 1 drop every 3 hours. 01/15/2017 docusate sodium (COLACE) 100 mg Capsule Take 100 mg by mouth 2 times daily. 01/15/2017 potassium chloride 20 mEq Tablet Sustained Release Take 1 tablet by mouth daily. 30 tablet 3 12/08/2016 03/24/2017 fluconazole (DIFLUCAN) 100 mg Tablet Take 100 mg by mouth daily. 03/16/2017 lidocaine (LIDODERM) 5 % Adhesive Patch, Medicated Apply 1 patch onto the skin daily. (leave on for 12 hours and remove for 12 hours) 30 patch 10/02/2016 01/15/2017 lidocaine-prilocaine (EMLA) Cream Apply small amount of cream using q-tip on mediport site approx 30-60 minutes before access. Cover site with saran wrap. 30 g 3 09/30/2016 11/04/2017 cetirizine (ZYRTEC) 10 mg tablet 10/02/2008 06/06/2019 documented as of this encounter Progress Notes * Veronica Cardona RN - 12/16/2016 9:36 AM EDT Patient Name: Trina Frances Patient Age: 36 y.o. Birthdate: 1980 Admit date: 12/16/2016 Attending Physician: No att. providers found Trina Frances, 36 y.o. female with diagnosis of breast cancer is here for chemotherapy infusion ofPerjeta/Herceptin/Taxotere/Carboplatin/Onpro. PROTOCOL: No CYCLE: 4 DAY: 1 S: Pt. offers no complaints at this time. O: Chemotherapy orders independently verified for correct drug name, route and dosage per patient'sheight, weight and BSA by Jagruti PENA and onsite pharmacist REACTIONS (DESCRIPTION, TIME, INTERVENTION AND EFFECTIVENESS) NONE A: Pt. Tolerated treatment well. Trina Frances confirms that all questions and issues have been addressed. P: Return to clinic per schedule documented in this encounter Plan of Treatment Upcoming Encounters Date Type Department Care Team (Late st Contact Info) Description 06/30/2024 4:30 PM EDT Office Visit Hematology [place] [address] Shilpi Gallegos MD [facility] DR HEMATOLOGY [place] [address] documented as of this encounter Visit Diagnoses Diagnosis Drug-induced anemia Other specified anemias Invasive ductal carcinoma of right breast documented in this encounter Administered Medications Inactive Administered Medications - up to 3 most recent administrations Medication Order MAR Action Action Date Dose Rate Site CARBOplatin (PARAPLATIN) 474 mg in dextrose 5% 297.4 mL chemo infusion 474 mg (rounded from 473.76 mg, Target AUC = 4.8), Intravenous, ONCE, 1 dose, On Wed12/16/16 at 1145, Administer over 30 Minutes, Hold Parameters: CARBOplatin, Call provider for serum creatinine less than (mg/dL): .2, Call provider for serum creatinine greater than (mg/dL): 1.5 New Bag 12/16/2016 2:23 PM EDT 474 mg 594.8 mL/hr dexamethasone (DECADRON) injection 10 mg 10 mg, Intravenous, ONCE, 1 dose, On Wed12/16/16 at 0945, Administer 60 minutes prior to DOCEtaxel Given 12/16/2016 10:06 AM EDT 10 mg diphenhydrAMINE (BENADRYL) injection 25 mg 25 mg, Intravenous, ONCE, 1 dose, On Wed12/16/16 at 0945, Administer 60 minutes prior to DOCEtaxel, Routine Given 12/16/2016 10:18 AM EDT 25 mg DOCEtaxel (TAXOTERE) 88 mg in dextrose 5% Non-PVC 254.4 mL chemo infusion 88 mg (rounded from 87.6 mg = 60 mg/m2/dose ? 1.46 m2 Treatment Plan BSA from Recorded weight), Intravenous, ONCE, 1 dose, On Wed12/16/16 at 1145, Administer over 60 Minutes New Bag 12/16/2016 1:06 PM EDT 88 mg 254.4 mL/hr famotidine (PEPCID) injection 20 mg 20 mg, Intravenous, ONCE, 1 dose, On Wed12/16/16 at 0945, Administer 60 minutes prior to DOCEtaxel Given 12/16/2016 10:08 AM EDT 20 mg heparin, porcine 100 unit/mL flush 500 Units 500 Units, Intravenous, ONCE, 1 dose, On Wed12/16/16 at 0745, Routine Given 12/16/2016 3:01 PM EDT 500 Units loperamide (IMODIUM) capsule 4 mg 4 mg, Oral, ONCE, 1 dose, On Wed12/16/16 at 0945, Do not exceed 16 mg/day., Routine Given 12/16/2016 10:07 AM EDT 4 mg palonosetron (ALOXI) injection 0.25 mg 0.25 mg, Intravenous, ONCE, 1 dose, On Wed12/16/16 at 0945, Administer over 30 seconds., Routine Given 12/16/2016 10:12 AM EDT 0.25 mg pegfilgrastim (NEULASTA ONPRO) injection kit 6 mg, Subcutaneous, ONCE, 1 dose, On Wed12/16/16 at 1100, Allow the prefilled syringe co-packaged with the on-body injector to reach room temperature at least 30 minutes prior to administration., Routine Given 12/16/2016 3:12 PM EDT 6 mg Right Arm pertuzumab (PERJETA) 420 mg in sodium chloride 0.9% 264 mL chemo infusion 420 mg, Intravenous, ONCE, 1 dose, On Wed12/16/16 at 1045, Administer over 30 Minutes, This is a restricted medication. Is this being used for an FDA approved indication? Yes New Bag 12/16/2016 11:16 AM EDT 420 mg 528 mL/hr sodium chloride 0.9 % flush 20 mL 20 mL, Intravenous, EVERY 1 MIN PRN, Starting on Wed12/16/16 at 0721, Until Kaycee 12/17/16 at 0436, Leaf Stripper, Routine Given 12/16/2016 3:01 PM EDT 20 mLs Given 12/16/2016 7:34 AM EDT 20 mLs TRASTuzumab (HERCEPTIN) 300 mg in sodium chloride 0.9% 264.3 mL infusion 300 mg, Intravenous, ONCE, 1 dose, On Wed12/16/16 at 1045, Administer over 30 Minutes, Ordered as 6 mg/kg then rounded per policy, Compatible with 0.9% sodium chloride ONLY New Bag 12/16/2016 12:23 PM EDT 300 mg 528.6 mL/ hr documented in this encounter Care Teams Fruit And Vegetable Classer Relationship Specialty Start Date End Date Radha Acuna MD [address] [place] [id number] PCP - General 08/07/11 documented as of this encounter
--- OUTSIDE RECORDS SUMMARY | 2024-04-07 16:41 | XMS_ITS | Encounter Summary ---
[place] [address] Care Team Providers Care Bonding And Composite Fabricator Name Role Phone Radha Acuna MD Primary Care Provider +1- [phone] Reason for Visit * Reason Onset Date Comments Follow-up 01/01/2017 Encounter Details Date Type Department Care Team (Late st Contact Info) Description 01/01/2017 Telephone Hematology [place] [phone] Flory Pitt RN Follow-up Social History Tobacco Use Types Packs/Day [...] Telephone Encounter - Flory Foster RN - 01/01/2017 8:24 AM EDT Follow up: Please call patient for weekly check in. Last treatment 12/16. Seeing MD in clinic 01/06 for cycle 5 TCH-P, please postpone to check in on 01/01 S/O: Call placed to patient. Patient reports feeling good. Patient reports that her constipation and the bleeding when she has BMs has improved. Reports has BM at least once every 2 days and has beentaking Colace and stool is soft and that there is no bleeding, it has completely resolved. Reports does still have migraine auras here and there reports they're manageable once she takes ibuprofen/tylenol it clears up. Reports that she does not currently have any symptoms at all at this time. Denies any pain. Denies fevers. Denies nausea and vomiting. Reports wondering if she needed to continue taking her potassium. Reports last time it was a 20 percent reduction for chemotherapy, and patient wondering if she will get the same dose as the last visit or if it will be increased again. Assessment: 36 y.o female with breast cancer. Last treatment 12/16. Seeing MD in clinic 01/06 for cycle 5 TCH-P Plan: Provider notified. Plan per Dr. Gallegos: Patient to continue taking potassium daily as prescribed, and is planned to receive the same dose (which was previously reduced) as last chemotherapy. Call placed to patient. Above reviewed with patient. Pt in agreement with plan and knows to call clinic with any concerns and/or questions. documented in this encounter Plan of Treatment Upcoming Encounters Date Type Department Care Team (Late st Contact Info) Description 06/30/2024 4:30 PM EDT Office Visit Hematology [place] [address] Shilpi Gallegos MD [facility] [address] [place] [address] documented as of this encounter Visit Diagnoses Not on filedocumented in this encounter Care Teams Bonding And Composite Fabricator Relationship Specialty Start Date End Date Radha Acuna MD [address] [place] [address] [place] [id number] PCP - General 08/07/11 documented as of this encounter
--- OUTSIDE RECORDS SUMMARY | 2024-04-07 16:41 | XMS_ITS | Encounter Summary ---
[place] [address] Care Team Providers Care Building And Construction Manager Name Role Phone Radha Acuna MD Primary Care Provider +1- [phone] Reason for Visit * Reason Onset Date Comments Results 02/17/2017 Encounter Details Date Type Department Care Team (Late st Contact Info) Description 02/17/2017 Telephone Hematology [place] [phone] Abi East TOURIST ADVISER ROOM Results Social History Tobacco Use Types [...] Telephone Encounter - Abi East RN - 02/17/2017 2:24 PM EST Received call from BECKY Aguilar in surgery who stated that they had checked labs on pt hoping to do surgery next week and labs came back w/critically low plts of 29 and ANC at 0.35. Labs were done locally. Call placed to pt. Spoke w/ pt who stated that she was doing well. States that she has been bruising easily, nose has been runny (always has a runny nose from allergies) and mucus has a slight pink tinge. Has been having chills and low grade fever (99.5) yesterday and today but denies any other infectious s/s. Deniesany chest congestion/pain/SOB. Did have a sore throat that has been resolving. Pt s/p pertuzumab, tratuzumab, docetaxel and carboplatin on 02/02 Plan: reviewed bleeding precautions, reviewed need to call for any infectious s/s, reviewed that surgery will call her to follow up on labs and her pending surgery Plan per Jess Odell APRN: Monitor, call for fever >100.4, CBC tomorrow Lab order faxed to [facility] ([phone]). documented in this encounter Plan of Treatment Upcoming Encounters Date Type Department Care Team (Late st Contact Info) Description 06/30/2024 4:30 PM EDT Office Visit Hematology [place] [address] Shilpi aGllegos MD [facility] DR HEMATOLOGY [place] [address] documented as of this encounter Results * (ABNORMAL) CBC (with Diff) (02/18/2017 10:06 AM EST) White Blood Cell 2.1(LENGTH CONTROL TESTER AL/ABN) EXTERNAL LAB Hemoglobin 8.7(LENGTH CONTROL TESTER AL/ABN) EXTERNAL LAB Hematocrit 24.6(EXTER NAL/ABN) EXTERNAL LAB Platelet 24(EXTERNA L/ABN) EXTERNAL LAB Neutrophil Absolute (ANC) - Automated 0.38(EXTER NAL/ABN) EXTERNAL LAB Blood specimen (specimen) 02/18/2017 10:06 AM EST Jess Odell APRN HEMATOLOGY ORDERA BLES EXTERNAL LAB documented in this encounter Visit Diagnoses Diagnosis Malignant neoplasm of right female breast, unspecified estrogen receptor status, unspecified site of breast documented in this encounter Care Teams Building And Construction Manager Relationship Specialty Start Date End Date Radha Acuna MD [address] [place] [address] [place] [address] PCP - General 08/07/11 documented as of this encounter
--- OUTSIDE RECORDS SUMMARY | 2024-04-07 16:41 | XMS_ITS | Encounter Summary ---
Author Organization [facility] [place] [address] Care Team Providers Care Fine Unhairer Name Role Phone Radha Acuna MD Primary Care Provider +1- [phone] Encounter Details Date Type Department Care Team (Late st Contact Info) Description 02/25/2017 Telephone Hematology [place] [address] Myesha Urena Social History Tobacco [...] Miscellaneous Notes * Telephone Encounter - Myesha Urean, RN - 02/25/2017 9:00 AM EST ----- Message from Thi Gardner sent at 02/24/2017 4:03 PM EST ----- Regarding: Flu shot question Contact: Gustavo, Please call patient she has a question about the flu shot. [phone] Thank you Thi RN discussed with Dr. Gallegos, would like patient to wait until her counts recover but could probably have it done prior to surgery which is scheduled for 12/4. RN discussed with patient who would prefer not to have her flu shot this year. RN discussed with Dr. Gallegos who would prefer that she does get her flu shot. Received request from [facility] for updated medical records. RN discussed with patient, she remains neutropenic and is scheduled for surgery 03/15, she would like to remain on disability until after her surgery. Information requested faxed to [facility] at , confirmation received. documented in this encounter Plan of Treatment Upcoming Encounters Date Type Department Care Team (Late st Contact Info) Description 06/30/2024 4:30 PM EDT Office Visit Hematology [place] [address] Shilpi Gallegos MD [facility] DR HEMATOLOGY [place] [address] documented as of this encounter Visit Diagnoses Not on filedocumented in this encounter Care Teams Fine Unhairer Relationship Specialty Start Date End Date Radha Acuna MD [address] [place] [address] [place] [address] PCP - General 08/07/11 documented as of this encounter
--- OUTSIDE RECORDS SUMMARY | 2024-04-07 16:41 | XMS_ITS | Encounter Summary ---
Author Organization [facility] Address [facility] [place] [address] Care Team Providers Care Vulcanizer Name Role Phone Radha Acuna MD Primary Care Provider +1- [phone] Reason for Visit * Reason Comments Follow-up discuss bilateral br east recon Encounter Details Date Type Department Care Team (Late st Contact Info) Description 02/04/2017 4:30 PM EDT Office Visit [place] [address] Frantz Martínez MD [facility] [place] [address] Invasive ductal carcinoma of right breast Social [...] * Patient Instructions* Libby Matos RN - 02/04/2017 4:30 PM EDT Please call Phu Larsen our project controls scheduler with any questions. [phone] M-F Nasal carriage of Staphylococcus aureus including methicillin-resistant [...] Progress Notes * Frantz Martínez MD - 02/04/2017 4:30 PM EDT Plastic Surgery Follow Up Note Provider: Frantz Martínez MD PCP: Radha Acuna MD Requesting surgeon: Ruby Negro MD CC: To discuss breast reconstruction HPI: Her breast surgeon requested this consultation for Trina Frances, a 36 y.o. woman with right breast cancer, to discuss options for breast reconstruction. She was accompanied by her Rudi for today's visit. She finished chemotherapy earlier this week. She has questions regarding her upcoming surgery and is planned for bilateral mastectomies. She will likely not require radiation. She wears an A cup bra and desires to be a B after surgery. She reports she does not desire textured implants. Examination: There were no vitals taken for this visit. General: On my examination today, Ms. Trina Frances appears to be in good health. Her emotional outlook is positive HEENT: MMM, normocephalic, sclera: white, no facial abrasions Neuro: PERRLA, motor and sensory exam grossly normal Skin Without lesions. Specifically, there is no dimpling or peau d'orange changes or nipple retraction. Breasts Symmetry: Her breasts are mildly asymmetrical with the right breast larger than the contralateral breast. Bruising of right breast from biopsy Slightly constricted base on left Skin changes associated with vitiligo on chest and abdomen Impression: Trina Frances is a 36 y.o. patient with diagnosis of right breast cancer, planned for bilateral mastectomies. We discussed planning for tissue garment mender reconstruction related to her preference for a larger breast size. I advised this is a required intermediary step due to the limitations of her skin envelope and quality of blood supply after her mastectomies. We discussed the expansion process in detail and transition at her desired volume to round implants. I advised her to expect4-6 weeks of limited activities. After reviewing all options for breast reconstruction or symmetry, she is strongly inclined to pursue: Question: Right Left Plan Surgical treatment requested? X X Artoura tissue garment mender placement Delayed inset 3-4 days later? Symmetry Surgery? No Reconstruction Surgical Delay with ligation necessary pre-op necessary no Medical clearance is necessary no Labs are necessary pre op no We are ready to schedule surgery yes Coordinate with Dr. Negro Given her medical and surgical history, she is a reasonable candidate for this choice of breast reconstruction. We discussed both implant and autologous options including TRAM flaps, BOYD, latissimus dorsi flapsand implants both immediate and two staged with tissue expanders and alloderm. Prior to her visit today she watched the [employer] informational link on breast reconstruction. I also provided her with a comprehensive packet of printed information includin. ASPS brochures and informed consent documents on breast reduction; TRAM and latissimus dorsi flap reconstruction; and implant reconstruction 2. Postoperative brochures on what to expect after either flap reconstruction, breast implantation and breast reduction 3. Brochures on medications that may increase the risk of bleeding after surgery and on the possible side effects or drug interactions with herbal or dietary supplements 4. Instructions on postmastectomy exercises; postoperative pain management; how to access to myD-H;and an ASPS brochure on making an informed decision 5. Recommended web sites including: www.surgery.med.[facility] www.hwosfqxzgjjxqw559.com www.breastimplantsafety.org www.breasthealthonline.com 6. Brochure on the Section of Plastic Surgery's policy on cigarette smoking 7. My business card including contact information and information on how to access [employer]. The risks of these procedures were covered either in the Rachana link , the informational materials and/or in our discussion. Risks covered included the following. General risks of surgery including reconstruction and mastectomy: Bleeding; delayed healing; asymmetry; tissue or flap loss; delayed inset or need for revision; immediate versus staged reconstructionof nipple-areolar complex. Mastopexy complications: tissue or nipple loss; fat necrosis. Implant related complications: The specific risks of implants were reviewed and she was provided with an ASPS informed consent document, the IOM report summary on the safety of silicone implants and the [place] brochure: Silicone implants, making an informed decision. We reviewed the general risksof implant reconstruction including: upper pole fullness; asymmetry; implant rupture, migration, infection, or contracture; visible rippling or waviness from the implant; likely need for revision or further surgery in the future. I will communicate this plan to Dr. Radha Acuna MD, and her general surgeon, Dr. Negro. Plan Surgical scheduling Discussed to discontinue use of light therapy before surgery Duration: 3.5 hours Timeframe:4 weeks after last chemotherapy treatment Anticipate 1 night over night admission Coordinated with: Dr. Negro Procedure: Breast reconstruction (bilateral) CPT: Vineyard Supervisor: [id number] Alloderm: [id number] Surgical site: Breast Side: Jono Anesthesia: General or GETA with muscle relaxation (for TRAM flap/garment mender/implant recon) Follow up: 7 days coordinated with Physical therapy PAT: No Expanders needed: 3x High Profile Vineyard Supervisor Vol. Width Proj. Catalog # 225 cc 10 cm 5.2 cm [id number] 300 cc 11 cm 6.0 cm [id number] 375 cc 12 cm 6.4 cm [id number] Round Moderate Plus Profile (Main OR does not stock 175-475cc) Order# Vol. Diam. Proj. Max. Fill [id number] 175cc 9.5cm 3.5cm 210cc [id number] 225cc 10.4cm 3.8cm 270cc Karin Pereyra, am acting as scribe for Dr. Martínez. All work documented was performed by Dr. Martínez. ???I performed the above scribed service and agree with the accuracy of the note?? FRANTZ MARTÍNEZ MD documented in this encounter Plan of Treatment Upcoming Encounters Date Type Department Care Team (Late st Contact Info) Description 06/30/2024 4:30 PM EDT Office Visit Hematology [place] [address] Shilpi Gallegos MD [facility] [address] [place] [address] documented as of this encounter Procedures Procedure Name Priority Date/Time Associated Diagnosis Comments LAB SCAN 02/26/2017 12:00 AM EST documented in this encounter Results * SCAN DOC: LAB (02/26/2017 12:00 AM EST) Narrative 02/26/2017 12:00 AM EST Ordered by an unspecified provider. Scanning Provider MEDIA MGR SCAN EXT O RDR/RSLT documented in this encounter Visit Diagnoses Diagnosis Invasive ductal carcinoma of right breast documented in this encounter Care Teams Vulcanizer Relationship Specialty Start Date End Date Radha Acuna MD [address] [place] [address] [place] [address] PCP - General 08/07/11 documented as of this encounter
--- OUTSIDE RECORDS SUMMARY | 2024-04-07 16:41 | XMS_ITS | Encounter Summary ---
Author Organization [facility] Address [facility] [place] [address] Care Team Providers Care Mixing And Dispensing Supervisor Name Role Phone Radha Acuna MD Primary Care Provider +1- [phone] Reason for Visit * Treatment/Therapy Plan Authorization (Routine) - Closed Specialty Diagnoses / Procedures Referred By Clara cisneros Referred To Contact Hematology and Oncology Diagnoses Invasive ductal carcinoma of right breast Procedures INJECTION, PERTUZUMAB, 1 MG TC TRASTUZUMAB, 10MG, INJECTION (HERCEPTIN) TC DOCETAXEL, 1MG, INJECTION TC CARBOPLATIN, 50MG, INJECTION (PARAPLATIN) TC PEGFILGRASTIM, 6MG, INJECTION TC PALONOSETRON HCL, 25MCG, INJECTION (ALOXI) Shilpi Gallegos MD [facility] [address] [place] [address] [address] Referral ID Status Reason Start Date Expiration Date Visits Re quested Visits Authorized [id number] Closed 10/02/2016 04/03/2017 99 99 Encounter Details Date Type Department Care Team (Latest Contact Info) Description 01/06/2017 7:23 AM EDT - 01/06/2017 11:59 PM EDT Hospital Encounter Hematology [place] [address] Drug-induced anemia; Invasive ductal carcinoma [...] small amount of [facility]x 30-60 minutes before access. Cover site with saran wrap. 30 g 3 09/30/2016 11/04/2017 cetirizine (ZYRTEC) 10 mg tablet 10/02/2008 06/06/2019 documented as of this encounter Progress Notes * Leslie Snyder RN - 01/06/2017 7:40 AM EDT Patient Name: Trina Frances Patient Age: 36 y.o. Birthdate: 1980 Admit date: 01/06/2017 Attending Physician: No att. providers found Mediport accessed, labs drawn; see MAR/flowsheet. documented in this encounter Plan of Treatment Upcoming Encounters Date Type Department Care Team (Late st Contact Info) Description 06/30/2024 4:30 PM EDT Office Visit Hematology [place] [address] Shilpi Gallegos MD [facility] [address] [place] [address] documented as of this encounter Procedures Procedure Name Priority Date/Time Associated Diagnosis Comments HEMOGRAM STAT 01/06/2017 7:35 AM EDT Drug-induced anemia Invasive ductal carcinoma of right breast DIFFERENTIAL, AUTOMATED STAT 01/06/2017 7:35 AM EDT Drug-induced anemia Invasive ductal carcinoma of right breast CBC (WITH DIFF) STAT 01/06/2017 7:35 AM EDT Drug-induced anemia Invasive ductal carcinoma of right breast COMPREHENSIVE METABOLIC PANEL STAT 01/06/2017 7:35 AM EDT Drug-induced anemia Invasive ductal carcinoma of right breast documented in this encounter Results * Differential, Automated (01/06/2017 7:35 AM EDT) Neutrophil % 52.4 % [facility] Neutrophil Absolute 2.02 1.70 - 6.10 x10(3)/[facility] LAB[facility] Lymph % 34.0 % [facility] Lymphocytes Abs 1.3 0.9 - 3.2 x10(3)/[facility] LABOR[facility] Monocyte % 13.0 % [facility] Monocyte Abs 0.5 0.3 - 0.9 x10(3)/[facility] LABOR[facility]ORY Eos % 0.3 % [facility] Eosinophils Abs 0.0 0.0 - 0.4 x10(3)/[facility] LAB[facility] Basophil % 0.0 % [facility] Baso Absolute 0.0 0.0 - 0.1 x10(3)/[facility] LABOR[facility]ORY Immature Gran % 0.30 % [facility] Comment: Immature granulocytes(IG's)percentage and absolute count will include metamyelocytes, myelocytes, and promyelocytes. Blood smears from CBCs yielding IG's will be scanned manually for concordance. If this scan disagrees with the automated IG or if promyelocytes are noted, a manual differential will be performed. Immature Gran Absolute 0.01 0.00 - 0.04 x10(3)/[facility] LAB[facility] Blood specimen (specimen) 01/06/2017 7:35 AM EDT 01/06/2017 7:45 AM EDT Narrative Resulting Agency Comment Spec In Lab Shilpi Gallegos MD HEMATOLOGY ORDERABL ES [facility] [place] [address] * (ABNORMAL) Hemogram (01/06/2017 7:35 AM EDT) White Blood Cell 3.8(L) 4.0 - 9.5 x10(3)/[facility] LABORATORY Red Blood Cell 2.72(L) 4.00 - 5.21 x10(6)/ L [facility] Hemoglobin 10.0(L) 11.7 - 15.5 gm/dL [facility] Hematocrit 28.5(L) 35.7 - 45.8 % [facility] Mean Cell Volume 104.8(H) 82.6 - 94.4 fL [facility] Mean Cell Hemoglobin 36.8(H) 27.1 - 32.0 pg [facility] Mean Cell Hemoglobin Concentration 35.1(H) 31.7 - 35.0 gm/dL [facility] Platelet 78(L) 145 - 357 x10(3)/[facility] LABORATORY RDW Standard Deviation 65.8(H) 37.0 - 46.0 fL [facility] RDW coefficient of variation 17.0(H) 11.5 - 14.1 % [facility] Mean Platelet Volume 10.2 7.6 - 12.9 fL [facility] NRBC% auto 0.0 % [facility] NRBC Absolute 0.000 0.000 - 0.000 x10(3)/mc L [facility] Blood specimen (specimen) 01/06/2017 7:35 AM EDT 01/06/2017 7:45 AM EDT Narrative Resulting Agency Comment Spec In Lab Shilpi Gallegos MD HEMATOLOGY ORDERABL ES [facility] [place] [address] * Comprehensive metabolic panel (non-fasting) (01/06/2017 7:35 AM EDT) Glucose 88 65 - 199 mg/dL [facility] Comment:Diabetes: >=200 mg/d L plus symptoms Blood Urea Nitrogen 14 8 - 18 mg/dL [facility] Creatinine 0.75 0.70 - 1.20 mg/dL [facility] Comment: Please note that the pediatric reference intervals supplied above were not validated at [facility]. Results from pediatric patients should be interpreted in conjunction to the patient's age, height and muscle mass. Sodium 141 135 - 145 mmol/L [facility] Potassium 3.7 3.5 - 5.0 mmol/L [facility] Comment: Please note: ??Patients with WBC >100,000 may have falsely elevated Potassium levels. ??For accurate Potassium quantification in these patients send serum separator tube (gold top) for subsequent determinations. ??Contact the Clinical Chemistry Laboratory if there are any questions. Chloride 100 98 - 107 mmol/L [facility] Carbon Dioxide 28 22 - 31 mmol/L [facility] Anion Gap 13 5 - 15 mmol/L [facility] Calcium 9.8 8.5 - 10.5 mg/dL [facility] Protein, Total 7.4 6.1 - 8.0 gm/dL [facility] Albumin 4.6 3.2 - 5.2 gm/dL [facility] Aspartate Aminotransferase 29 0 - 30 unit/L [facility] Alanine Aminotransferase 19 0 - 30 unit/L [facility] Alkaline Phosphatase 77 40 - 104 unit/L [facility] Bilirubin, Total 0.4 0.2 - 1.3 mg/dL [facility] Est Glomerular Filtration Rate >60 >=60 [facility] Comment: This estimated GFR (eGFR) value was calculated using the MDRD equation which has been validated on patients between the ages of 18 and 70. The MDRD should not be used to assess kidney function in patients < 18 years of age or in patients with extremes of body mass, or in patients with acute kidney failure. This value should be multiplied by 1.2 for patients. For further information please copy and paste the following links into your internet browser. http://[employer]/DHnkdep http://[employer]/DHMCnkf Blood specimen (specimen) 01/06/2017 7:35 AM EDT 01/06/2017 7:45 AM EDT Narrative Resulting Agency Comment Spec In Lab Shilpi Gallegos MD CHEMISTRY ORDERABLE S [facility] [place] [address] documented in this encounter Visit Diagnoses Diagnosis Drug-induced anemia Other specified anemias Invasive ductal carcinoma of right breast documented in this encounter Administered Medications Inactive Administered Medications - up to 3 most recent administrations Medication Order MAR Action Action Date Dose Rate Site sodium chloride 0.9 % flush 5-20 mL 5-20 mL, Intravenous, EVERY 1 MIN PRN, Starting on 01/06/17 at 0724, Until Kaycee 01/07/17 at 0435, Line Care, Flush pertains to all indwelling lines. Flush per protocol found in the job aid using the link provided on this medication record. Refer to Intravenous (IV) Job Aid: Adult Flushing & Catheter Care (9494) job aid for additional information regarding guidelines and administration., Routine Given 01/06/2017 7:39 AM EDT 20 mLs documented in this encounter Care Teams Mixing And Dispensing Supervisor Relationship Specialty Start Date End Date Radha Acuna MD [address] [place] [address] [place] [address] PCP - General 08/07/11 documented as of this encounter
--- OUTSIDE RECORDS SUMMARY | 2024-04-07 16:41 | XMS_ITS | Encounter Summary ---
Author Organization [facility] Address [facility] [place] [address] Care Team Providers Care Sail Maker Name Role Phone Radha Acuna MD Primary Care Provider +1- [phone] Reason for Visit * Treatment/Therapy Plan Authorization (Routine) - Closed Specialty Diagnoses / Procedures Referred By Clara cisneros Referred To Contact Hematology and Oncology Diagnoses Invasive ductal carcinoma of right breast Procedures INJECTION, PERTUZUMAB, 1 MG TC TRASTUZUMAB, 10MG, INJECTION (HERCEPTIN) TC DOCETAXEL, 1MG, INJECTION TC CARBOPLATIN, 50MG, INJECTION (PARAPLATIN) TC PEGFILGRASTIM, 6MG, INJECTION TC PALONOSETRON HCL, 25MCG, INJECTION (ALOXI) Shilpi Gallegos MD [facility] DR HEMATOLOGY [place] [address] [address] Referral ID Status Reason Start Date Expiration Date Visits Re quested Visits Authorized [id number] Closed 10/02/2016 04/03/2017 99 99 Encounter Details Date Type Department Care Team (Latest Contact Info) Description 02/02/2017 8:19 AM EDT - 02/02/2017 11:59 PM EDT Hospital Encounter Hematology [place] [address] Drug-induced anemia; Invasive ductal carcinoma [...] Sign Reading Time Taken Comments Blood Pressure 115/69 02/02/2017 9:04 AM EDT Pulse 68 02/02/2017 9:04 AM EDT Temperature 36.2 ??C (97.2 ??F) 02/02/2017 9:04 AM ED T Respiratory Rate 18 02/02/2017 9:04 AM EDT Oxygen Saturation 100% 02/02/2017 9:04 AM EDT Inhaled Oxygen Concentration - - Weight 51.3 kg (113 lb) 02/02/2017 9:04 AM EDT Height 155.8 cm (5' 1.34) 02/02/2017 9:04 AM ED T Body Mass Index 21.12 02/02/2017 9:04 AM EDT documented in this encounter Medications [...] as of this encounter Progress Notes * Sonam Dominguez RN - 02/02/2017 12:12 PM EDT Patient Name: Trina Frances Patient Age: 36 y.o. Birthdate: 1980 Admit date: 02/02/2017 Attending Physician: Britta att. providers found TIME TREATMENT STARTED: 0900 TIME TREATMENT ENDED: 1434 Trina Frances, 36 y.o. female with diagnosis of breast cancer is here for chemotherapy infusion ofPTH-C. PROTOCOL: N/A CYCLE: 6 WEEK: 1 DAY: 1 S: Pt. offers no complaints at this time. Excited this is her last day of chemotherapy. O: Chemotherapy orders independently verified for correct drug name, route and dosage per patient'sheight, weight and BSA by Sonam Dominguez RN and onsite pharmacist REACTIONS (DESCRIPTION, TIME, INTERVENTION AND EFFECTIVENESS) None, pt tolerated infusions well. A: Pt. Tolerated treatment well. Trina Frances confirms that all questions and issues have been addressed. P: Return to clinic as scheduled. documented in this encounter Plan of Treatment Upcoming Encounters Date Type Department Care Team (Late st Contact Info) Description 06/30/2024 4:30 PM EDT Office Visit Hematology [place] [address] Shilpi Gallegos MD [facility] DR [place]EMATOLOGY [place] [address] documented as of this encounter Visit Diagnoses Diagnosis Drug-induced anemia Other specified anemias Invasive ductal carcinoma of right breast documented in this encounter Administered Medications Inactive Administered Medications - up to 3 most recent administrations Medication Order MAR Action Action Date Dose Rate Site CARBOplatin (PARAPLATIN) 533 mg in dextrose 5% 303.3 mL chemo infusion 533 mg (Target AUC = 5), Intravenous, ONCE, 1 dose, On Wed02/02/17 at 1130, Administer over 30 Minutes, Hold Parameters: CARBOplatin, Call provider for serum creatinine less than (mg/dL): .2, Call provider for serum creatinine greater than (mg/dL): 1.5 New Bag 02/02/2017 1:53 PM EDT 533 mg 606.6 mL/hr dexamethasone (DECADRON) injection 10 mg 10 mg, Intravenous, ONCE, 1 dose, On Wed02/02/17 at 0945, Administer 60 minutes prior to DOCEtaxel Given 02/02/2017 9:53 AM EDT 10 mg diphenhydrAMINE (BENADRYL) injection 25 mg 25 mg, Intravenous, ONCE, 1 dose, On Wed02/02/17 at 0945, Administer 60 minutes prior to DOCEtaxel, Routine Given 02/02/2017 9:58 AM EDT 25 mg DOCEtaxel (TAXOTERE) 88 mg in dextrose 5% Non-PVC 254.4 mL chemo infusion 88 mg (rounded from 87.6 mg = 60 mg/m2/dose ? 1.46 m2 Treatment Plan BSA from Recorded weight), Intravenous, ONCE, 1 dose, On Wed02/02/17 at 1045, Administer over 60 Minutes New Bag 02/02/2017 12:46 PM EDT 88 mg 254.4 mL/hr famotidine (PEPCID) injection 20 mg 20 mg, Intravenous, ONCE, 1 dose, On Wed02/02/17 at 0945, Administer 60 minutes prior to DOCEtaxel Given 02/02/2017 10:01 AM EDT 20 mg heparin, porcine 100 unit/mL flush 500 Units 500 Units, Intravenous, ONCE, 1 dose, On Wed02/02/17 at 0845, Routine Given 02/02/2017 2:27 PM EDT 500 Units palonosetron (ALOXI) injection 0.25 mg 0.25 mg, Intravenous, ONCE, 1 dose, On Wed02/02/17 at 0945, Administer over 30 seconds., Routine Given 02/02/2017 9:49 AM EDT 0.25 mg pertuzumab (PERJETA) 420 mg in sodium chloride 0.9% 264 mL chemo infusion 420 mg, Intravenous, ONCE, 1 dose, On Wed02/02/17 at 1045, Administer over 30 Minutes, This is a restricted medication. Is this being used for an FDA approved indication? Yes New Bag 02/02/2017 11:01 AM EDT 420 mg 528 mL/hr TRASTuzumab (HERCEPTIN) 300 mg in sodium chloride 0.9% 264.3 mL infusion 300 mg, Intravenous, ONCE, 1 dose, On Wed02/02/17 at 1045, Administer over 30 Minutes, Ordered as 6 mg/kg then rounded per policy, Compatible with 0.9% sodium chloride ONLY New Bag 02/02/2017 12:09 PM EDT 300 mg 528.6 mL/hr documented in this encounter Care Teams Sail Maker Relationship Specialty Start Date End Date Radha Acuna MD [address] [place] [address] [place] [address] PCP - General 08/07/11 documented as of this encounter
--- OUTSIDE RECORDS SUMMARY | 2024-04-07 16:41 | XMS_ITS | Encounter Summary ---
Author Organization [facility] [place] [address] Care Team Providers Care Investment Recovery Technician Name Role Phone Radha Acuna MD Primary Care Provider +1- [phone] Reason for Visit * Reason Comments Follow-up Encounter Details Date Type Department Care Team (Late st Contact Info) Description 01/06/2017 8:30 AM EDT Office Visit [place] [address] Shilpi Gallegos MD [facility] DR HEMATOLOGY [place] [address] Drug-induced anemia; Invasive ductal carcinoma of right breast; Drug-induced hypokalemia; Change in bowel habits; Thrombocytopenia due to drugs Social History Tobacco Use Types Packs/Day Years [...] Sign Reading Time Taken Comments Blood Pressure 109/64 01/06/2017 8:30 AM EDT Pulse 67 01/06/2017 8:30 AM EDT Temperature 36.8 ??C (98.2 ??F) 01/06/2017 8:30 AM ED T Respiratory Rate 18 01/06/2017 8:30 AM EDT Oxygen Saturation 100% 01/06/2017 8:30 AM EDT Inhaled Oxygen Concentration - - Weight 50.5 kg (111 lb 6.4 oz) 01/06/2017 8:30 A M EDT Height 155.8 cm (5' 1.34) 01/06/2017 8:30 AM ED T Body Mass Index 20.82 01/06/2017 8:30 AM EDT documented in this encounter Progress Notes * Shilpi Gallegos MD - 01/06/2017 8:30 AM EDT Images from the original note were not included. Subjective: Patient ID: Trina Frances is a 36 y.o. female. Cc: breast cancer Interval history: Trina did better with cycle 4. Dose reduction resulted in less fatigue, less diarrhea. She had instead problems with constipation and rectal bleeding, lasting 4 days. Port site has been fine. Not sure if right breast feels improved or not, notes tenderness in left breast when she holds her daughter. Trina's been researching her surgical options a lot and has some questions today. She wonders if she should consider oophorectomy, when she'll be able to lift her daughter again after surgery, what kindof supportive equipment she should get, and whether she should get a flu shot. 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 On 09/11/16, she underwent a mammogram followed by ultrasound showing 2 right anca ast masses and right axilla node 1.2cm. Biopsy showed invasive ductal carcinoma, grade 2 with DCIS.HER2+ (FISH HER2:CEP-17 = 10), ER+/WV+ (11-90%). A [...] Cycle 1 TCH-P 10/05/16 Review of Systems Constitutional: Positive for appetite change. Craving sugar. HENT: Negative. Eyes: Positive for discharge and redness. Has had 2 eye infections recently, daughter also sick with mild cold symptoms. Respiratory: Negative. Cardiovascular: Negative. Gastrointestinal: Positive for anal bleeding, constipation and rectal pain. Negative for diarrhea, nausea and vomiting. Endocrine: Positive for heat intolerance. ++hot flashes, worst at night. Genitourinary: Negative. Musculoskeletal: Negative. Skin: Negative. Allergic/Immunologic: Negative. Neurological: Negative. Hematological: Negative. Psychiatric/Behavioral: Negative. Current Outpatient Prescriptions Medication Sig Dispense Refill ??? sulfacetamide (BLEPH-10) 10 % Drops 1 drop every 3 hours. ??? docusate sodium (COLACE) 100 mg Capsule Take 100 mg by mouth 2 times daily. ??? potassium chloride 20 mEq Tablet Sustained Release Take 1 tablet by mouth daily. 30 tablet 3 ??? fluconazole (DIFLUCAN) 100 mg Tablet Take 100 mg by mouth daily. ??? lidocaine (LIDODERM) 5 % Adhesive Patch, Medicated Apply 1 patch onto the skin daily. (leave onfor 12 hours and remove for 12 hours) 30 patch 0 ??? lidocaine-prilocaine (EMLA) Cream Apply small amount of cream using q-tip on mediport site approx 30-60 minutes before access. Cover site with saran wrap. 30 g 3 ??? multivitamin (THERAGRAN) Tablet Take 1 tablet by mouth daily. ??? cetirizine (ZYRTEC) 10 mg tablet No current facility-administered medications for this visit. Facility-Administered Medications Ordered in Other Visits Medication Dose Route Frequency Provider Last Rate Last Dose ??? heparin, porcine 100 unit/mL flush 500 Units 500 Units Intravenous Once PRN Shilpi Gallegos MD ??? sodium chloride 0.9 % flush 5-20 mL 5-20 mL Intravenous Q1 Min PRN Shilpi Gallegos MD 20 mLat 01/06/17 0739 ??? pertuzumab (PERJETA) 420 mg in sodium chloride 0.9% 264 mL chemo infusion 420 mg Intravenous Once Shilpi Gallegos MD ??? DOCEtaxel (TAXOTERE) 88 mg in dextrose 5% Non-PVC 254.4 mL chemo infusion 60 mg/m2/dose (Treatment Plan Recorded) Intravenous Once Shilpi Gallegos MD ??? TRASTuzumab (HERCEPTIN) 300 mg in sodium chloride 0.9% 264.3 mL infusion 300 mg Intravenous Once Shilpi Gallegos MD ??? CARBOplatin (PARAPLATIN) 640 mg in dextrose 5% 314 mL chemo infusion 640 mg Intravenous Once Shilpi Gallegos MD ??? pegfilgrastim (NEULASTA ONPRO) injection kit 6 mg Subcutaneous Once Shilpi Gallegos MD ??? heparin, porcine 100 unit/mL flush 500 Units 500 Units Intravenous Once PRN Shilpi Gallegos MD ??? sodium chloride 0.9 % flush 5-20 mL 5-20 mL Intravenous Q1 Min PRN Shilpi Gallegos MD Objective: Physical Exam Constitutional: She is oriented [...] change and no tenderness. Left breast exhibits tenderness. Left breast exhibits no inverted nipple, no mass, no nipple discharge and no skin change. Abdominal: Soft. Bowel sounds are normal. She [...] normal. Skin: Skin is warm and dry. She is not diaphoretic. Psychiatric: She has a normal mood and affect. Her behavior is normal. Judgment and thought contentnormal. Nursing note and vitals reviewed. Recent Results (from the past 24 hour(s)) Comprehensive metabolic panel (non-fasting) Result Value Ref Range Glucose Lvl 88 65 - 199 mg/dL BUN 14 8 - 18 mg/dL Creatinine 0.75 0.70 - 1.20 mg/dL Sodium 141 135 - 145 mmol/L Potassium 3.7 3.5 - 5.0 mmol/L Chloride 100 98 - 107 mmol/L CO2 28 22 - 31 mmol/L Anion Gap 13 5 - 15 mmol/L Calcium 9.8 8.5 - 10.5 mg/dL Total Protein 7.4 6.1 - 8.0 gm/dL Albumin 4.6 3.2 - 5.2 gm/dL AST 29 0 - 30 unit/L ALT 19 0 - 30 unit/L Alk Phos 77 40 - 104 unit/L Total Bilirubin 0.4 0.2 - 1.3 mg/dL Estimated GFR >60 >=60 Hemogram Result Value Ref Range WBC 3.8 (L) 4.0 - 9.5 x10(3)/mcL RBC 2.72 (L) 4.00 - 5.21 x10(6)/mcL Hemoglobin 10.0 (L) 11.7 - 15.5 gm/dL Hematocrit 28.5 (L) 35.7 - 45.8 % MCV 104.8 (H) 82.6 - 94.4 fL MCH 36.8 (H) 27.1 - 32.0 pg MCHC 35.1 (H) 31.7 - 35.0 gm/dL Platelets 78 (L) 145 - 357 x10(3)/mcL RDWSD 65.8 (H) 37.0 - 46.0 fL RDWCV 17.0 (H) 11.5 - 14.1 % MPV 10.2 7.6 - 12.9 fL nRBC % Auto 0.0 % nRBC Abs Auto 0.000 0.000 - 0.000 x10(3)/mcL Differential, Automated Result Value Ref Range Neutrophils % 52.4 % Neutr Abs (ANC) 2.02 1.70 - 6.10 x10(3)/mcL Lymphocytes % 34.0 % Lymphocytes Abs 1.3 0.9 - 3.2 x10(3)/mcL Monocytes % 13.0 % Monocyte Abs 0.5 0.3 - 0.9 x10(3)/mcL Eosinophils % 0.3 % Eosinophils Abs 0.0 0.0 - 0.4 x10(3)/mcL Basophils % 0.0 % Basophils Abs 0.0 0.0 - 0.1 x10(3)/mcL Immature Gran % 0.30 % Dalia Gran Abs 0.01 0.00 - 0.04 x10(3)/mcL Assessment and Plan: No problem-specific Assessment & Plan notes found for this encounter. #1 Breast cancer--clinical stage IIA right breast cancer, ER+ Her2+. Excellent clinical response. Tolerating chemotherapy well. We discussed standard of care for pre-menopausal ER+ breast cancer includes ovarian suppression + AI which has been shown to be superior to tamoxifen, but that procedure can be delayed to see how sheis doing on adjuvant tamoxifen first to mediate menopausal side effects. She will think about this and let us know. She's pretty sure she wants bilat mastectomy with reconstruction, wonders if she can talk to Dr. Zurita again soon. I will ask our surgical nurse navigator to get back in touch with her to help with pre-op and post-op questions. #2 Chemotherapy--monitoring for toxicity--labs reviewed and she meets parameters for treatment today. Platelets better than they were prior to cycle 4. Will continue 20% dose reduction. Hypokalemia resolved and diarrhea improved: ok to d/c K supplements for now. Resume if diarrhea resumes. Constipation--possibly exacerbated by premeds and immodium, will dc/ immodium as premed. Use PRN ifloose stools develop. #3 Fatigue--improved. #4 Menopausal symptoms--++hot flashes especially at night. May improved with decreased sugar/ carb intake in the afternoon / evening. #5 Bone health--not discussed today. #6 Medication management --no new prescriptions. Plan: Cycle 5 today, d/c immodium. F/u 3 wks for Cycle 6. Contact surg office and plastics for f/u appts. Ok to get flu shot. documented in this encounter Plan of Treatment Upcoming Encounters Date Type Department Care Team (Late st Contact Info) Description 06/30/2024 4:30 PM EDT Office Visit [place]ematology [place] [address] Shilpi Gallegos MD [facility] DR HEMATOLOGY [place] [address] documented as of this encounter Visit Diagnoses Diagnosis Drug-induced anemia Other specified anemias Invasive ductal carcinoma of right breast Drug-induced hypokalemia Change in bowel habits Other symptoms involving digestive system Thrombocytopenia due to drugs Other secondary thrombocytopenia documented in this encounter Care Teams Investment Recovery Technician Relationship Specialty Start Date End Date Radha Acuna MD [address] [place] [address] [place] [address] PCP - General 08/07/11 documented as of this encounter
--- OUTSIDE RECORDS SUMMARY | 2024-04-07 16:41 | XMS_ITS | Encounter Summary ---
Author Organization [facility] [place] [address] Care Team Providers Care Solution Maker Name Role Phone Radha Acuna MD Primary Care Provider +1- [phone] Reason for Visit * Reason Comments Chemotherapy Perjeta/Herceptin/Ta xotere/Carbo * Treatment/Therapy Plan Authorization (Routine) - Closed Specialty Diagnoses / Procedures Referred By Clara cisneros Referred To Contact Hematology and Oncology Diagnoses Invasive ductal carcinoma of right breast Procedures INJECTION, PERTUZUMAB, 1 MG TC TRASTUZUMAB, 10MG, INJECTION (HERCEPTIN) TC DOCETAXEL, 1MG, INJECTION TC CARBOPLATIN, 50MG, INJECTION (PARAPLATIN) TC PEGFILGRASTIM, 6MG, INJECTION TC PALONOSETRON HCL, 25MCG, INJECTION (ALOXI) Shilpi Gallegos MD [facility] [address] [place] [address] [facility] [address] [place] [address] Referral ID Status Reason Start Date Expiration Date Visits Re quested Visits Authorized [id number] Closed 10/02/2016 04/03/2017 99 99 Encounter Details Date Type Department Care Team (Latest Contact Info) Description 01/06/2017 7:23 AM EDT - 01/06/2017 11:59 PM EDT Hospital Encounter Hematology [place] [address] Drug-induced anemia; Invasive ductal carcinoma [...] Progress Notes * Rios Brown RN - 01/06/2017 11:00 AM EDT Patient Name: Trina Frances Patient Age: 36 y.o. Birthdate: 1980 Admit date: 01/06/2017 Attending Physician: No att. providers found TIME TREATMENT STARTED: 1000 TIME TREATMENT ENDED: 1530 Trina Piña Juan Daniel, 36 y.o. female with diagnosis of Breast Ca is here for chemotherapy infusion of Perjeta/Herceptin/Docetaxel/Carbo/Onpro PROTOCOL: NA CYCLE: 5 WEEK: NA DAY: 1 S: Pt. offers no complaints at this time. States she gets a slight low grade fever 2 days after theOnpro. MD aware. Also reports a SHAY after chemo, fluids encouraged. Patient discharged to home with . Knows about OnPro. O: Patient's Chemotherapy orders independently verified for correct drug name, route and dosage perpatient's height, weight and BSA by Rios Brown RN and Pharmacist. REACTIONS (DESCRIPTION, TIME, INTERVENTION [...] EDT Office Visit Hematology [place] [phone] Shilpi Gallegos MD [facility] DR HEMATOLOGY [place] [address] documented as of this encounter Visit Diagnoses Diagnosis Drug-induced anemia Other specified anemias Invasive ductal carcinoma of right breast documented in this encounter Administered Medications Inactive Administered Medications - up to 3 most recent administrations Medication Order MAR Action Action Date Dose Rate Site CARBOplatin (PARAPLATIN) 640 mg in dextrose 5% 314 mL chemo infusion 640 mg (rounded from 639.6 mg, Target AUC = 6), Intravenous, ONCE, 1 dose, On Wed01/06/17 at 1015, Administer over 30 Minutes, Hold Parameters: CARBOplatin, Call provider for serum creatinine less than (mg/dL): .2, Call provider for serum creatinine greater than (mg/dL): 1.5 New Bag 01/06/2017 2:46 PM EDT 640 mg 628 mL/hr dexamethasone (DECADRON) injection 10 mg 10 mg, Intravenous, ONCE, 1 dose, On Wed01/06/17 at 0915, Administer 60 minutes prior to DOCEtaxel Given 01/06/2017 10:46 AM EDT 10 mg diphenhydrAMINE (BENADRYL) injection 25 mg 25 mg, Intravenous, ONCE, 1 dose, On Wed01/06/17 at 0915, Administer 60 minutes prior to DOCEtaxel, Routine Given 01/06/2017 10:40 AM EDT 25 mg DOCEtaxel (TAXOTERE) 88 mg in dextrose 5% Non-PVC 254.4 mL chemo infusion 88 mg (rounded from 87.6 mg = 60 mg/m2/dose ? 1.46 m2 Treatment Plan BSA from Recorded weight), Intravenous, ONCE, 1 dose, On Wed01/06/17 at 1015, Administer over 60 Minutes New Bag 01/06/2017 1:26 PM EDT 88 mg 254.4 mL/hr famotidine (PEPCID) injection 20 mg 20 mg, Intravenous, ONCE, 1 dose, On Wed01/06/17 at 0915, Administer 60 minutes prior to DOCEtaxel Given 01/06/2017 10:50 AM EDT 20 mg heparin, porcine 100 unit/mL flush 500 Units 500 Units, Intravenous, ONCE PRN, Starting on Wed01/06/17 at 0724, Until Kaycee 01/07/17 at 0435, Line Care, Refer to Intravenous (IV) Procedure: Accessing Implanted Vascular Access Devices (654) procedure and/or Intravenous (IV) Job Aid: Adult Flushing & Catheter Care (4700) job aid for additional information regarding guidelines and administration., Routine Given 01/06/2017 3:24 PM EDT 500 Units palonosetron (ALOXI) injection 0.25 mg 0.25 mg, Intravenous, ONCE, 1 dose, On Wed01/06/17 at 0915, Administer over 30 seconds., Routine Given 01/06/2017 10:54 AM EDT 0.25 mg pegfilgrastim (NEULASTA ONPRO) injection kit 6 mg, Subcutaneous, ONCE, 1 dose, On Wed01/06/17 at 0915, Allow the prefilled syringe co-packaged with the on-body injector to reach room temperature at least 30 minutes prior to administration., Routine Given 01/06/2017 3:25 PM EDT 6 mg Right Arm pertuzumab (PERJETA) 420 mg in sodium chloride 0.9% 264 mL chemo infusion 420 mg, Intravenous, ONCE, 1 dose, On Wed01/06/17 at 1015, Administer over 30 Minutes, This is a restricted medication. Is this being used for an FDA approved indication? Yes New Bag 01/06/2017 11:27 AM EDT 420 mg 528 mL/hr TRASTuzumab (HERCEPTIN) 300 mg in sodium chloride 0.9% 264.3 mL infusion 300 mg, Intravenous, ONCE, 1 dose, On Wed01/06/17 at 1015, Administer over 30 Minutes, Compatible with 0.9% sodium chloride ONLY New Bag 01/06/2017 12:40 PM EDT 300 mg 528.6 mL/hr documented in this encounter Care Teams Solution Maker Relationship Specialty Start Date End Date Radha Acuna MD [address] [place] [address] [place] [address] PCP - General 08/07/11 documented as of this encounter
--- OUTSIDE RECORDS SUMMARY | 2024-04-07 16:41 | XMS_ITS | Encounter Summary ---
[place] [address] Care Team Providers Care Special Machine Operator Name Role Phone Radha Acuna MD Primary Care Provider +1- [phone] Reason for Visit * Reason Onset Date Comments Follow-up 03/03/2017 Encounter Details Date Type Department Care Team (Late Contact Info) Description 03/03/2017 Telephone Hematology [place] [phone] Radha Riggins, RN Follow-up Social History Tobacco Use Types [...] Telephone Encounter - Radha Riggins RN - 03/03/2017 8:03 AM EST T/C To Patient: made her aware per MD, ok to get a flu shot. She is in agreement and intends to comply, she knows to call with questions or concerns documented in this encounter Plan of Treatment Upcoming Encounters Date Type Department Care Team (Late st Contact Info) Description 06/30/2024 4:30 PM EDT Office Visit Hematology [place] [address] Shilpi Gallegos MD [facility] DR [place] [address] documented as of this encounter Visit Diagnoses Not on filedocumented in this encounter Care Teams Special Machine Operator Relationship Specialty Start Date End Date Radha Acuna MD [address] [place] [address] [place] [address] PCP - General 08/07/11 documented as of this encounter
--- OUTSIDE RECORDS SUMMARY | 2024-04-07 16:41 | XMS_ITS | Encounter Summary ---
Author Organization [facility] Address [facility] [place] [address] Care Team Providers Care Metal Can Inspector Name Role Phone Radha Acuna MD Primary Care Provider [phone]- [phone] Reason for Visit * Treatment/Therapy Plan Authorization (Routine) - Closed Specialty Diagnoses / Procedures Referred By Clara cisneros Referred To Contact Hematology and Oncology Diagnoses Invasive ductal carcinoma of right breast Procedures INJECTION, PERTUZUMAB, 1 MG TC TRASTUZUMAB, 10MG, INJECTION (HERCEPTIN) TC DOCETAXEL, 1MG, INJECTION TC CARBOPLATIN, 50MG, INJECTION (PARAPLATIN) TC PEGFILGRASTIM, 6MG, INJECTION TC PALONOSETRON HCL, 25MCG, INJECTION (ALOXI) Shilpi Gallegos MD [facility] [address] [place] [address] [address] Referral ID Status Reason Start Date Expiration Date Visits Re quested Visits Authorized [id number] Closed 10/02/2016 04/03/2017 [id number] [phone] Encounter Details Date Type Department Care Team (Latest Contact Info) Description 12/08/2016 10:02 AM EDT - 12/08/2016 11:59 PM EDT Hospital Encounter [place] [address] Drug-induced anemia; Invasive ductal carcinoma [...] by mouth once daily 0 12/08/2016 02/04/2017 docusate sodium (COLACE) 100 mg Capsule Take [...] Progress Notes * Zaida Dawson RN - 12/08/2016 10:31 AM EDT Patient Name: Trina Frances Patient Age: 36 y.o. Birthdate: 1980 Admit date: 12/08/2016 Attending Physician: No att. providers found Access visit. See MAR and/or flowsheet. documented in this encounter Miscellaneous Notes * Addendum Note - Sonam Dominguez RN - 12/08/2016 11:51 AM EDTEncounter addended by: Sonam Dominguez RN on: 12/08/2016 11:51 AM
Actions taken: Flowsheet accepted documented in this encounter Plan of Treatment Upcoming Encounters Date Type Department Care Team (Late st Contact Info) Description 06/30/2024 4:30 PM EDT Office Visit [place] [address] Shilpi Gallegos MD [facility] [address] [place] [address] documented as of this encounter Procedures Procedure Name Priority Date/Time Associated Diagnosis Comments ABORH RECHECK STATUS Routine 12/08/2016 10:20 AM EDT SCAN, PERIPHERAL BLOOD STAT 7 10:20 AM EDT HEMOGRAM STAT 12/08/2016 10:20 AM EDT Drug-induced anemia Invasive ductal carcinoma of right breast DIFFERENTIAL, AUTOMATED STAT 12/08/2016 10:20 AM EDT Drug-induced anemia Invasive ductal carcinoma of right breast ABO/RH TYPING Routine 12/08/2016 10:20 AM EDT Drug-induced anemia Invasive ductal carcinoma of right breast CBC (WITH DIFF) STAT 12/08/2016 10:20 AM EDT Drug-induced anemia Invasive ductal carcinoma of right breast ANTIBODY SCREEN Routine 12/08/2016 10:20 AM EDT Drug-induced anemia Invasive ductal carcinoma of right breast TYPE AND SCREEN ([facility] Routine 12/08/2016 10:20 AM EDT Drug-induced anemia Invasive ductal carcinoma of right breast COMPREHENSIVE METABOLIC PANEL STAT 12/08/2016 10:20 AM EDT Drug-induced anemia Invasive ductal carcinoma of right breast documented in this encounter Results * Scan, Peripheral Blood (12/08/2016 10:20 AM EDT) Plat estimate Decreased [facility] RBC Morphology Abnormal [facility] Macrocyte 1-5 /HPF [facility] Polychromasia Present >5/HPF [facility] Ovalocytes 1-5 /HPF [facility] Tear Cell 1-5 /HPF [facility] Blood specimen (specimen) 12/08/2016 10:20 AM EDT 12/08/2016 10:33 AM EDT Narrative Resulting Agency Comment Spec In Lab Shilpi Gallegos MD HEMATOLOGY ORDERABL ES Performing Organization Address City/[facility]/ZIP Co de Phone Number [facility] [place] [address] * ABORH Recheck Status (12/08/2016 10:20 AM EDT) Pathologist [facility] ABORH Recheck Order Order Placed [facility] ABORH Type Recheck not performed [facility] Blood specimen (specimen) 12/08/2016 10:20 AM EDT 12/08/2016 10:41 AM EDT Narrative Resulting Agency Comment Spec In Lab Shilpi Gallegos MD BLOOD BANK LAB ORDE RABLES [facility] [place] [address] * Differential, Automated (12/08/2016 10:20 AM EDT) Neutrophil % 53.3 % [facility] Neutrophil Absolute 2.18 1.70 - 6.10 x10(3)/[facility] Lymph % 34.7 % [facility] Lymphocytes Abs 1.4 0.9 - 3.2 x10(3)/[facility] Monocyte % 10.8 % [facility] Monocyte Abs 0.4 0.3 - 0.9 x10(3)/[facility] Eos % 0.2 % [facility] Eosinophils Abs 0.0 0.0 - 0.4 x10(3)/[facility] Basophil % 0.0 % [facility] Baso Absolute 0.0 0.0 - 0.1 x10(3)/[facility] Immature Gran % 1.00 % [facility] Comment: Immature granulocytes(IG's)percentage and absolute count will include metamyelocytes, myelocytes, and promyelocytes. Blood smears from CBCs yielding IG's will be scanned manually for concordance. If this scan disagrees with the automated IG or if promyelocytes are noted, a manual differential will be performed. Immature Gran Absolute 0.04 0.00 - 0.04 x10(3)/[facility] Blood specimen (specimen) 12/08/2016 10:20 AM EDT 12/08/2016 10:33 AM EDT Narrative Resulting Agency Comment Spec In Lab Shilpi Gallegos MD HEMATOLOGY ORDERABL ES [facility] [place] [address] * (ABNORMAL) Hemogram (12/08/2016 10:20 AM EDT) White Blood Cell 4.1 4.0 - 9.5 x10(3)/mc L [facility] Red Blood Cell 2.29(L) 4.00 - 5.21 x10(6)/ L [facility] Hemoglobin 7.6(L) 11.7 - 15.5 gm/dL [facility] Hematocrit 22.2(L) 35.7 - 45.8 % [facility] Mean Cell Volume 96.9(H) 82.6 - 94.4 fL [facility] Mean Cell Hemoglobin 33.2(H) 27.1 - 32.0 pg [facility] Mean Cell Hemoglobin Concentration 34.2 31.7 - 35.0 gm/dL [facility] Platelet 28(L) 145 - 357 x10(3)/mc L [facility] RDW Standard Deviation 53.1(H) 37.0 - 46.0 fL [facility] RDW coefficient of variation 21.0(H) 11.5 - 14.1 % [facility] Mean Platelet Volume 11.5 7.6 - 12.9 fL [facility] NRBC% auto 0.0 % [facility] NRBC Absolute 0.000 0.000 - 0.000 x10(3)/mc L [facility] Blood specimen (specimen) 12/08/2016 10:20 AM EDT 12/08/2016 10:33 AM EDT Narrative Resulting Agency Comment Spec In Lab Shilpi Gallegos MD HEMATOLOGY ORDERABL ES Performing Organization Address City/[facility]/ZIP Co de Phone Number [facility] [place] [address] * Antibody screen (12/08/2016 10:20 AM EDT) Ab Screen Interp Negative [facility] Expires at 2359 on: 12/11/2016 [facility] Blood specimen (specimen) 12/08/2016 10:20 AM EDT 12/08/2016 10:41 AM EDT Narrative Resulting Agency Comment Spec In Lab Shilpi Gallegos MD BLOOD BANK LAB ORDE RABLES [facility] [place] [address] * ABO/Rh Typing (12/08/2016 10:20 AM EDT) ABORH Type O Neg [facility] Blood specimen (specimen) 12/08/2016 10:20 AM EDT 12/08/2016 10:41 AM EDT Narrative Resulting Agency Comment Spec In Lab Shilpi Gallegos MD BLOOD BANK LAB ZULEMA MONROE [facility] [place] [address] * Comprehensive metabolic panel (non-fasting) (12/08/2016 10:20 AM EDT) Glucose 93 65 - 199 mg/dL [facility] Comment:Diabetes: >=200 mg/d L plus symptoms Blood Urea Nitrogen 14 8 - 18 mg/dL [facility] Creatinine 0.75 0.70 - 1.20 mg/dL [facility] Comment: Please note that the pediatric reference intervals supplied above were not validated at [facility]. Results from pediatric patients should be interpreted in conjunction to the patient's age, height and muscle mass. Sodium 141 135 - 145 mmol/L [facility] Potassium 3.7 3.5 - 5.0 mmol/L [facility] Comment: Please note: ??Patients with WBC >100,000 may have falsely elevated Potassium levels. ??For accurate Potassium quantification in these patients send serum separator tube (gold top) for subsequent determinations. ??Contact the Clinical Chemistry Laboratory if there are any questions. Chloride 102 98 - 107 mmol/L [facility] Carbon Dioxide 26 22 - 31 mmol/L [facility] Anion Gap 13 5 - 15 mmol/L [facility] Calcium 9.6 8.5 - 10.5 mg/dL [facility] Protein, Total 6.9 6.1 - 8.0 gm/dL [facility] Albumin 4.4 3.2 - 5.2 gm/dL [facility] Aspartate Aminotransferase 27 0 - 30 unit/L [facility] Alanine Aminotransferase 19 0 - 30 unit/L [facility] Alkaline Phosphatase 62 40 - 104 unit/L [facility] Bilirubin, Total 0.3 0.2 - 1.3 mg/dL [facility] Est Glomerular Filtration Rate >60 >=60 [facility] Comment: This estimated GFR (eGFR) value [...] the following links into your internet browser. [email or web address] Blood specimen (specimen) 12/08/2016 10:20 AM EDT 12/08/2016 10:34 AM EDT Narrative Resulting Agency Comment Spec In Lab Shilpi Gallegos MD CHEMISTRY ORDERABLE S [facility] [place] [address] documented in this encounter Visit Diagnoses Diagnosis Drug-induced anemia Other specified anemias Invasive ductal carcinoma of right breast documented in this encounter Administered Medications Inactive Administered Medications - up to 3 most recent administrations Medication Order MAR Action Action Date Dose Rate Site sodium chloride 0.9 % flush 5-20 mL 5-20 mL, Intravenous, EVERY 1 MIN PRN, Starting on Wed12/08/16 at 1003, Until Wed12/09/16 at 0436, Line Care, Flush pertains to all indwelling lines. Flush per protocol found in the job aid using the link provided on this medication record. Refer to Intravenous (IV) Job Aid: Adult Flushing & Catheter Care (6176) job aid for additional information regarding guidelines and administration., Routine Given 12/08/2016 10:31 AM EDT 20 mLs documented in this encounter Care Teams Metal Can Inspector Relationship Specialty Start Date End Date Radha Acuna MD [address] [place] [address] [place] [address] PCP - General 08/07/11 documented as of this encounter
--- OUTSIDE RECORDS SUMMARY | 2024-04-07 16:41 | XMS_ITS | Encounter Summary ---
Author Organization [facility] [place] [address] Care Team Providers Care Juvenile Court Judge Name Role Phone Radha Acuna MD Primary Care Provider +1- [phone] Reason for Visit * Reason Comments Follow-up Encounter Details Date Type Department Care Team (Late st Contact Info) Description 12/08/2016 11:00 AM EDT Office Visit [place] [address] Mila Gallegos MD [facility] [address] [place] [address] Invasive ductal carcinoma of right breast; Drug-induced anemia; Drug-induced hypokalemia; Change in bowel habits; Thrombocytopenia [...] Sign Reading Time Taken Comments Blood Pressure 107/69 12/08/2016 10:46 AM EDT Pulse 79 12/08/2016 10:46 AM EDT Temperature 36.9 ??C (98.4 ??F) 12/08/2016 1 0:46 AM EDT Respiratory Rate 18 12/08/2016 10:4 6 AM EDT Oxygen Saturation 99% 12/08/2016 10: 46 AM EDT Inhaled Oxygen Concentration - - Weight 48.9 kg (107 lb 12.8 oz) 017 10:46 AM EDT Height 156.7 cm (5' 1.69) 12/08/2016 1 0:46 AM EDT Body Mass Index 19.91 12/08/2016 10:46 AM EDT documented in this encounter Progress Notes * Mila Gallegos MD - 12/08/2016 11:00 AM EDT Images from the original note were not included. Subjective: Patient ID: Trina Frances is a 36 y.o. female. Cc: breast cancer Interval history: Nausea improved with compazine. Decreased appetite--improved, doing well. Anemia--no dizziness, light headedness, chest pain or SOB. No fatigue. Weight loss--stabilized. Weakness--improved. Right shoulder blade pain--resolved. Constipation--persists after each cycle, +BRBPR in spots on toilet paper, no bright red blood in bowl. Hot flashes--stable. Using fans and cold packs at night. Chest fluttering --resolved. Taking potassium supplements, but as trouble with the large pill. Dissolves in water, finds that distasteful too. 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 On 09/11/16, she underwent a mammogram followed by ultrasound showing 2 right anca ast masses and right axilla node 1.2cm. Biopsy showed invasive ductal carcinoma, grade 2 with DCIS.HER2+ (FISH HER2:CEP-17 = 10), ER+/OH+ (11-90%). A right axilla node biopsy was [...] 1 TCH-P 10/05/16 Review of Systems Constitutional: Negative. HENT: Negative. Eyes: Negative. Respiratory: Negative. Cardiovascular: Negative. Gastrointestinal: Negative. Endocrine: Positive for heat intolerance. Genitourinary: Positive for vaginal discharge. Negative for vaginal bleeding and vaginal pain. + small amount of white-yellow vaginal discharge daily. No itchiness, dysuria or foul odor. Musculoskeletal: Negative. Skin: Negative. Allergic/Immunologic: Negative. Neurological: Negative. Hematological: Bruises/bleeds easily. Bruising easily from minimal pressure. Psychiatric/Behavioral: Negative. Objective: Physical Exam Constitutional: She [...] (non-fasting) Result Value Ref Range Glucose Lvl 93 65 - 199 mg/dL BUN 14 8 - 18 mg/dL Creatinine 0.75 0.70 - 1.20 mg/dL Sodium 141 135 - 145 mmol/L Potassium 3.7 3.5 - 5.0 mmol/L Chloride 102 98 - 107 mmol/L CO2 26 22 - 31 mmol/L Anion Gap 13 5 - 15 mmol/L Calcium 9.6 8.5 - 10.5 mg/dL Total Protein 6.9 6.1 - 8.0 gm/dL Albumin 4.4 3.2 - 5.2 gm/dL AST 27 0 - 30 unit/L ALT 19 0 - 30 unit/L Alk Phos 62 40 - 104 unit/L Total Bilirubin 0.3 0.2 - 1.3 mg/dL Estimated GFR >60 >=60 ABO/Rh Typing Result Value Ref Range ABORh Type O Neg Antibody screen Result Value Ref Range Ab Screen Interp Negative Expires at 2359 on: 12/11/2016 Hemogram Result Value Ref Range WBC 4.1 4.0 - 9.5 x10(3)/mcL RBC 2.29 (L) 4.00 - 5.21 x10(6)/mcL Hemoglobin 7.6 (L) 11.7 - 15.5 gm/dL Hematocrit 22.2 (L) 35.7 - 45.8 % MCV 96.9 (H) 82.6 - 94.4 fL MCH 33.2 (H) 27.1 - 32.0 pg MCHC 34.2 31.7 - 35.0 gm/dL Platelets 28 (L) 145 - 357 x10(3)/mcL RDWSD 53.1 (H) 37.0 - 46.0 fL RDWCV 21.0 (H) 11.5 - 14.1 % MPV 11.5 7.6 - 12.9 fL nRBC % Auto 0.0 % nRBC Abs Auto 0.000 0.000 - 0.000 x10(3)/mcL Differential, Automated Result Value Ref Range Neutrophils % 53.3 % Neutr Abs (ANC) 2.18 1.70 - 6.10 x10(3)/mcL Lymphocytes % 34.7 % Lymphocytes Abs 1.4 0.9 - 3.2 x10(3)/mcL Monocytes % 10.8 % Monocyte Abs 0.4 0.3 - 0.9 x10(3)/mcL Eosinophils % 0.2 % Eosinophils Abs 0.0 0.0 - 0.4 x10(3)/mcL Basophils % 0.0 % Basophils Abs 0.0 0.0 - 0.1 x10(3)/mcL Immature Gran % 1.00 % Dalia Gran Abs 0.04 0.00 - 0.04 x10(3)/mcL ABORH Recheck Status Result Value Ref Range ABORH Recheck Order Order Placed Scan, Peripheral Blood Result Value Ref Range Plat Estimate Decreased RBC Morphology Abnormal Macrocytes 1-5 /HPF Polychromasia Present >5/HPF Ovalocytes 1-5 /HPF Tear Drop Cells 1-5 /HPF Assessment and Plan: No problem-specific Assessment & Plan notes found for this encounter. #1 Breast cancer--Stage I her2+ . Partial clinical response so far. Doing better with chemotherapy and supportive care. Chemo held today due to anemia, thrombocytopenia. Trina declined a blood transfusion today, feeling better than she did last week, hopeful she can avoid a transfusion by delaying chemo 1 week. #2 Chemotherapy--monitoring for toxicity--platelets <30 with easy bruising, will hold chemo today for that. Reschedule for next week. I will ask a colleague to see her to review CBC and symptom check prior to cycle 4. Will dose reduce cycle 4 by 20% due to thrombocytopenia. Hypokalemia improved with daily KCl supplements. Recommend crushing it into applesauce or yogurt tomake it more tolerable. OK to stop this week but would resume next week when chemo resumes and takedaily until chemotherapy complete. Constipation--recommend adding metamucil or citrucel to daily routine, continue stool softeners fornow. OK to d/c if stool Becomes too soft. Topical care with desitin cream to prevent anal tearing, no suppositories. #3 Fatigue--improved. #4 Menopausal symptoms--stable. #5 Bone health--will address prior to endocrine therapy. #6 Medication management --KCl renewed, 20 meq daily to start on day 1 cycle 4. Plan: hold chemo today Continue supportive care Resume next week if parameters met, with 20% dose reduction. Reschedule cycle 5 and 6 Resume KCl supplements with cycle 4. documented in this encounter Miscellaneous Notes * Addendum Note - Mila Gallegos MD - 12/08/2016 12:24 PM EDTAddended by: MILA GALLEGOS on: 12/08/2016 12:24 PM Modules accepted: Orders documented in this encounter Plan of Treatment Upcoming Encounters Date Type Department Care Team (Late st Contact Info) Description 06/30/2024 4:30 PM EDT Office Visit [place] [address] Mila Gallegos MD [facility] DR [place] [address] documented as of this encounter Visit Diagnoses Diagnosis Invasive ductal carcinoma of right breast Drug-induced anemia Other specified anemias Drug-induced hypokalemia Change in bowel habits Other symptoms involving digestive system Thrombocytopenia due to drugs Other secondary thrombocytopenia documented in this encounter Care Teams Juvenile Court Judge Relationship Specialty Start Date End Date Radha Acuna MD [address] [place] [address] [place] [address] PCP - General 08/07/11 documented as of this encounter
--- OUTSIDE RECORDS SUMMARY | 2024-04-07 16:41 | XMS_ITS | Encounter Summary ---
Author Organization [facility] [place] [address] Care Team Providers Care Security Patrol Officer Name Role Phone Radha Acuna MD Primary Care Provider +1- [phone] Encounter Details Date Type Department Care Team (Late st Contact Info) Description 02/26/2017 Telephone Hematology [place] [id number] Shilpi Gallegos MD [facility] [place] [address] Social History Tobacco Use Types Packs/Day Years [...] encounter Miscellaneous Notes * Telephone Encounter - Shilpi Gallegos MD - 02/26/2017 5:51 PM EST TC to pt with her CBC results: Wbc 3.8 hgb 9/4 pl 36 anc 1830. All improving slowly. Will recheck prior to her surgery. Trina understands and all of her questions were answered. documented in this encounter Plan of Treatment Upcoming Encounters Date Type Department Care Team (Late st Contact Info) Description 06/30/2024 4:30 PM EDT Office Visit Hematology [place] [address] Shilpi Gallegos MD [facility] [place] [address] documented as of this encounter Visit Diagnoses Not on filedocumented in this encounter Care Teams Security Patrol Officer Relationship Specialty Start Date End Date Radha Acuna MD [address] [place] [address] [place] [address] PCP - General 08/07/11 documented as of this encounter
--- OUTSIDE RECORDS SUMMARY | 2024-04-07 16:41 | XMS_ITS | Encounter Summary ---
[place] [address] Care Team Providers Care Emery Grinder Name Role Phone Radha Acuna MD Primary Care Provider +1- [phone] Encounter Details Date Type Department Care Team (Latest Contact Info) Description 12/16/2016 7:12 AM EDT Hospital Encounter [place] [id number] Invasive ductal carcinoma of right breast (Primary [...] of this encounter Progress Notes * Casandra Bloom RN - 12/16/2016 7:35 AM EDT Patient Name: Trina Frances Patient Age: 36 y.o. Birthdate: 1980 Admit date: 12/16/2016 Attending Physician: No att. providers found Access visit. See MAR and/or flowsheet. documented in this encounter Plan of Treatment Upcoming Encounters Date Type Department Care Team (Late st Contact Info) Description 06/30/2024 4:30 PM EDT Office Visit [place] [address] Shilpi Gallegos MD [facility] [address] [place] [address] documented as of this encounter Procedures Procedure Name Priority Date/Time Associated Diagnosis Comments ABORH RECHECK STATUS STAT 12/16/2016 7:30 AM EDT HEMOGRAM STAT 12/16/2016 7:30 AM EDT Invasive ductal carcinoma of right breast DIFFERENTIAL, AUTOMATED STAT 12/16/2016 7:30 AM EDT Invasive ductal carcinoma of right breast ABO/RH TYPING STAT 12/16/2016 7:30 AM EDT Invasive ductal carcinoma of right breast CBC (WITH DIFF) STAT 12/16/2016 7:30 AM EDT Invasive ductal carcinoma of right breast ANTIBODY SCREEN STAT 12/16/2016 7:30 AM EDT Invasive ductal carcinoma of right breast TYPE AND SCREEN ([facility]) STAT 12/16/2016 7:30 AM EDT Invasive ductal carcinoma of right breast COMPREHENSIVE METABOLIC PANEL STAT 12/16/2016 7:30 AM EDT Invasive ductal carcinoma of right breast documented in this encounter Results * ABORH Recheck Status (12/16/2016 7:30 AM EDT) ABORH Type Recheck Completed [facility] Blood specimen (specimen) 12/16/2016 7:30 AM EDT 12/16/2016 7:42 AM EDT Narrative Resulting Agency Comment Spec In Lab Dash Cooney MD BLOOD BANK LAB ORDER ZAFAR [facility] [place] [address] * Antibody screen (12/16/2016 7:30 AM EDT) Ab Screen Interp Negative [facility] Expires at [id number] on: 12/19/2016 [facility] Blood specimen (specimen) 12/16/2016 7:30 AM EDT 12/16/2016 7:42 AM EDT Narrative Resulting Agency Comment Spec In Lab Dash Cooney MD BLOOD BANK LAB ORDER ZAFAR [facility] [place] [address] * ABO/Rh Typing (12/16/2016 7:30 AM EDT) ABORH Type O Neg [facility] Blood specimen (specimen) 12/16/2016 7:30 AM EDT 12/16/2016 7:42 AM EDT Narrative Resulting Agency Comment Spec In Lab Dash Cooney MD BLOOD BANK LAB ORDER ZAFAR [facility] [place] [address] * Differential, Automated (12/16/2016 7:30 AM EDT) Neutrophil % 51.2 % [facility] Neutrophil Absolute 1.99 1.70 - 6.10 x10(3)/[facility] Lymph % 33.7 % [facility] Lymphocytes Abs 1.3 0.9 - 3.2 x10(3)/[facility] Monocyte % 11.3 % [facility] Monocyte Abs 0.4 0.3 - 0.9 x10(3)/[facility] Eos % 3.3 % [facility] Eosinophils Abs 0.1 0.0 - 0.4 x10(3)/[facility] Basophil % 0.0 % [facility] Baso Absolute 0.0 0.0 - 0.1 x10(3)/[facility] Immature Gran % 0.50 % [facility] Comment: Immature granulocytes(IG's)percentage and absolute count will include metamyelocytes, myelocytes, and promyelocytes. Blood smears from CBCs yielding IG's will be scanned manually for concordance. If this scan disagrees with the automated IG or if promyelocytes are noted, a manual differential will be performed. Immature Gran Absolute 0.02 0.00 - 0.04 x10(3)/[facility] Blood specimen (specimen) 12/16/2016 7:30 AM EDT 12/16/2016 7:37 AM EDT Narrative Resulting Agency Comment Spec In Lab Dash Cooney MD HEMATOLOGY ORDERABLE S [facility] [place] [address] * (ABNORMAL) Hemogram (12/16/2016 7:30 AM EDT) White Blood Cell 3.9(L) 4.0 - 9.5 x10(3)/mc L [facility] Red Blood Cell 2.71(L) 4.00 - 5.21 x10(6)/mc L [facility] Hemoglobin 9.4(L) 11.7 - 15.5 gm/dL [facility] Hematocrit 27.5(L) 35.7 - 45.8 % [facility] Mean Cell Volume 101.5(H) 82.6 - 94.4 fL [facility] Mean Cell Hemoglobin 34.7(H) 27.1 - 32.0 pg [facility] Mean Cell Hemoglobin Concentration 34.2 31.7 - 35.0 gm/dL [facility] Platelet 185 145 - 357 x10(3)/mc L [facility] RDW Standard Deviation 74.3(H) 37.0 - 46.0 fL [facility] RDW coefficient of variation 21.4(H) 11.5 - 14.1 % [facility] Mean Platelet Volume 9.4 7.6 - 12.9 fL [facility] NRBC% auto 0.0 % [facility] NRBC Absolute 0.000 0.000 - 0.000 x10(3)/mc L [facility] Blood specimen (specimen) 12/16/2016 7:30 AM EDT 12/16/2016 7:37 AM EDT Narrative Resulting Agency Comment Spec In Lab Dash Cooney MD HEMATOLOGY ORDERABLE S [facility] [place] [address] * Comprehensive metabolic panel (non-fasting) (12/16/2016 7:30 AM EDT) Glucose 80 65 - 199 mg/dL [facility] Comment:Diabetes: >=200 mg/d L plus symptoms Blood Urea Nitrogen 13 8 - 18 mg/dL [facility] Creatinine 0.83 0.70 - 1.20 mg/dL [facility] Comment: Please note that the pediatric reference intervals supplied above were not validated at [facility]. Results from pediatric patients should be interpreted in conjunction to the patient's age, height and muscle mass. Sodium 143 135 - 145 mmol/L [facility] Potassium 3.6 3.5 - 5.0 mmol/L [facility] Comment: Please note: ??Patients with WBC >100,000 may have falsely elevated Potassium levels. ??For accurate Potassium quantification in these patients send serum separator tube (gold top) for subsequent determinations. ??Contact the Clinical Chemistry Laboratory if there are any questions. Chloride 103 98 - 107 mmol/L [facility] Carbon Dioxide 26 22 - 31 mmol/L [facility] Anion Gap 14 5 - 15 mmol/L [facility] Calcium 10.2 8.5 - 10.5 mg/dL [facility] Protein, Total 7.0 6.1 - 8.0 gm/dL [facility] Albumin 4.3 3.2 - 5.2 gm/dL [facility] Aspartate Aminotransferase 24 0 - 30 unit/L [facility] Alanine Aminotransferase 17 0 - 30 unit/L [facility] Alkaline Phosphatase 66 40 - 104 unit/L [facility] Bilirubin, Total 0.3 0.2 - 1.3 mg/dL [facility] Est Glomerular Filtration Rate >60 >=60 [facility] Comment: This estimated GFR [...] the following links into your internet browser. [email or web address] Blood specimen (specimen) 12/16/2016 7:30 AM EDT 12/16/2016 7:37 AM EDT Narrative Resulting Agency Comment Spec In Lab Dash Cooney MD CHEMISTRY ORDERABLES [facility] [place] [address] documented in this encounter Visit Diagnoses Diagnosis Invasive ductal carcinoma of right breast- Primary documented in this encounter Administered Medications Inactive Administered Medications - up to 3 most recent administrations Medication Order MAR Action Action Date Dose Rate Site sodium chloride 0.9 % flush 20 mL 20 mL, Intravenous, EVERY 1 MIN PRN, Starting on Wed12/16/16 at 0721, Until Wed12/17/16 at 0436, Touch Up Carver, Routine Given 12/16/2016 3:01 PM EDT 20 mLs Given 12/16/2016 7:34 AM EDT 20 mLs documented in this encounter Care Teams Emery Grinder Relationship Specialty Start Date End Date Radha Acuna MD [address] [place] [address] [place] [address] PCP - General 08/07/11 documented as of this encounter
--- OUTSIDE RECORDS SUMMARY | 2024-04-07 16:41 | XMS_ITS | Encounter Summary ---
[place] [address] Care Team Providers Care Gluing Pressman Name Role Phone Radha Acuna MD Primary Care Provider +1- [phone] Reason for Visit * Reason Comments Follow-up Encounter Details Date Type Department Care Team (Late st Contact Info) Description 01/15/2017 2:00 PM EDT Office [place] [address] Ruby Negro MD Malignant neoplasm of upper-outer quadrant [...] - Inhaled Oxygen Concentration - - Weight 49.9 kg (110 lb) 01/15/2017 1:55 PM EDT Height - - Body Mass Index 20.56 01/06/2017 8:30 AM EDT documented in this encounter Progress Notes * Ruby Negro MD - 01/15/2017 2:00 PM EDT Surgical Oncology New Visit Note Reason for Visit: Trina Frances is a 36 y.o. female with ER+MI=HER2+ right breast cancer completing neoadjuvant chemotherapy here to discuss surgical planning. HPI:Trina Frances is a 36F with PMH signficant for IgA deficiency, vitiligo and multiple allergieswho first noticed tenderness in her right breast in July 2016 and subsequently was diagnosed with ER+MI+ HER2 + invasive ductal carcinoma and high grade DCIS. Her axillary and cervical nodes were imaged, and biosied to be negative. PET CT negative for distant disease. BRCA mutation negative. She is completing neoadjuvant chemotherapy TCH-P x 6 cycles, lasttreatment scheduled for 01/26. OVerall she reports doing ok with treatment. + fatigue. thrombocytopenia secondary to chemotherapy (did have 20% dose reduction of docetaxel). Some back pain on and off. Increased bruising. Active Ambulatory Problems Diagnosis Date Noted ??? IgA deficiency 01/16/2012 ??? Invasive ductal carcinoma of right breast 09/22/2016 ??? Drug-induced anemia 11/27/2016 ??? Drug-induced hypokalemia 12/08/2016 ??? Change in bowel habits 12/08/2016 ??? 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 Medication management 01/26/2017 Resolved Ambulatory Problems Diagnosis Date Noted ??? No Resolved Ambulatory Problems Past Medical History: Diagnosis Date ??? Environmental allergies ??? IgA deficiency ??? Immune deficiency disorder ??? Invasive ductal carcinoma of right breast 09/22/2016 ??? Multiple food allergies ??? Placenta previa ??? Vitiligo Past Surgical History: Procedure Laterality Date ??? APPENDECTOMY ??? SECTION ??? NASAL SINUS SURGERY ??? TONSILLECTOMY Current Outpatient Prescriptions: ??? docusate sodium (COLACE) 100 mg Capsule, Take 100 mg by mouth daily., Disp: , Rfl: ??? LACTOBACILLUS ACIDOPHILUS (PROBIOTIC ORAL), Take by mouth daily., Disp: , Rfl: ??? lidocaine-prilocaine (EMLA) Cream, Apply small amount of cream using q-tip on mediport site approx 30-60 minutes before access. Cover site with saran wrap., Disp: 30 g, Rfl: 3 ??? multivitamin (THERAGRAN) Tablet, Take 1 tablet by mouth daily., Disp: , Rfl: ??? cetirizine (ZYRTEC) 10 mg tablet, , Disp: , Rfl: ??? potassium chloride 20 mEq Tablet Sustained Release, Take 1 tablet by mouth daily., Disp: 30 tablet, Rfl: 3 ??? fluconazole (DIFLUCAN) 100 mg Tablet, Take 100 mg by mouth daily., Disp: , Rfl: DRUG ALLERGIES: Allergies as of 01/15/2017 - Review Complete 01/06/2017 Allergen Reaction Noted ??? Aspirin Hives ??? Hydrocodone-acetaminophen Hives ??? Tioconazole SOCIAL HISTORY: Social History Social History ??? Marital status: [...] ??? Not on file Social History Narrative Family History Problem Relation Age of Onset ??? Myocardial Infarction Father 51 sudden ??? Autoimmune Disorder Sister vitiligo ??? Lymphoma Maternal Aunt ??? Myocardial Infarction Paternal Grandfather ??? Breast Cancer Neg Hx ??? Ovarian Cancer Neg Hx REVIEW OF SYSTEMS: A 12 point complete review of systems was obtained from the patient and confirmed by me. It was negative except for what was stated in the HPI. She otherwise denies high blood pressure, heart disease, lung disease, diabetes, and infectious diseases. PHYSICAL EXAMINATION: Constitutional: This is a 36 y.o. female in no apparent distress Wt 49.9 kg (110 lb) BMI 20.56 kg/m2 Body mass index is 20.56 kg/(m^2). Eyes: anicteric, extra ocular movements are intact Neuro: No focal deficits. Hearing and speech intact Psych: the patient is alert and oriented. Normal affect. Breast Exam: right breast decreased size in palpable mass. No axillary lymphadenopathy. left breast normal without mass, skin or nipple changes or axillary nodes. Heart: Regular rate and rhythm, S1 S2. No peripheral edema Lungs: Clear bilaterally with good air intake Nodes: No palpable lymph nodes in the groin or cervical or supraclavicular neck Abdomen: Soft, non-tender, non-distended. There are normal active bowel sounds, no hepatosplenomegaly. Musculoskeletal: The patient has normal gait, range of motion, and muscle strength Skin: warm, dry, good turgor, non-icteric. DATA REVIEWED: 1) Imaging reviewed by me with the radiologist: Screening mammo: 09/11/16 FINDINGS: The breasts are heterogeneously dense, which [...] and 1.3 cm at the 3:00 radian. ?? The left breast is unremarkable. ?? Ultrasound: Bilateral breast ultrasound: I performed high-resolution ultrasound [...] The cortex is thickened to 0.3 cm. MRI 09/17/16 enhancing masses and nonmass enhancement extending from [...] exclude any evidence of chest wall invasion. 2) Pathology 09/11/16 A - ??Needle biopsies: ??Right breast lesion 1 Diagnosis: ?Invasive ductal carcinoma, intermediate grade. ? Ductal carcinoma in-situ, high grade with comedo necrosis. Microcalcifications: ??Associated with DCIS. ER: ??Positive 11-90% MI : ??Positive 11-90% HER2 + (ratio 10) Needle biopsies: ??Right axillary node ultrasound biopsy Diagnosis: ?Benign node fragments. 10/02/16 Lymph node, cervical (US-guided FNA): Abundant lymphoid cells (predominantly small lymphocytes) are present; consistent ??with lymph node sampling. Negative for metastatic carcinoma. 4) Labs 01/06/17 WBC 3.8 Hgb 10 Plat 78 Impression: Trina Frances is a 36 y.o. female with right breast invasive ductal carcinoma and highgrade DCIS, ER+MI+ HEr2 + with a lesion spanning about 7.5cm with 2 dominant masses with calcs extending to nipple. She also had a suspicious axillary node which was biopsied and found to be benign as well as cervical LN negative biopsy. PET CT negative for distant disease prior to chemo. Now at the end of treatment with neoadjuvant chemotherapy, TCH-P x 6 cycles, last treatment scheduled for 01/26. We discused that she does seem to have response based on clinical exam with smaller tumor. Giventhe extent of disease pre-chemo, I still recommend mastectomy with SLNB. I do not recommend preserving the nipple given the high grade DCIS component and calcs extending to the nipple on pre treatment imaging. In regards to the left breast, she does not have a mutation so prophylactic mastectomy charlie choice for cosmetic reason and to decrease risk of getting a left breast cancer over her lifetime. There is no evidence to show that prophylactic mastectomy will increase her survival from breast cancer. She has met with the plastic surgeon and does want to pursue prophylactic mastectomy along with bilateral reconstruction. We can perform nipple sparing on the left side. The patient asked multiple questions which were answered to her satisfaction. Plan: 1) right mastectomy and sentinel lymph node biopsy, prophylactic left nipple sparing mastectomy. I explained the implications, indications and alternatives to the proposed treatment plan as well as the risks, including infection, bleeding/hematoma, need for additional surgery, lymphedema. Consent was signed. 2) repeat labs 2-3 weeks post chemotherapy completion to make sure her counts are okay prior to surgery. 3) follow-up with plastic surgery, Dr. Freed 4) plan for surgery in the middle of February Ruby Negro MD Surgical Oncology documented in this encounter Plan of Treatment Upcoming Encounters Date Type Department Care Team (Late st Contact Info) Description 06/30/2024 4:30 PM EDT Office Visit [place]ology [place] [address] Shilpi Gallegos MD [facility] DR HEMATOLOGY [place] [address] documented as of this encounter Visit Diagnoses Diagnosis Malignant neoplasm of upper-outer quadrant of right breast in female, estrogen receptor positive documented in this encounter Care Teams Gluing Pressman Relationship Specialty Start Date End Date Radha Acuna MD [address] [place] [address] [place] [address] PCP - General 08/07/11 documented as of this encounter
--- OUTSIDE RECORDS SUMMARY | 2024-04-07 16:41 | XMS_ITS | Encounter Summary ---
[place] [address] Care Team Providers Care Bulk Station Operator Name Role Phone Radha Acuna MD Primary Care Provider +1- [phone] Encounter Details Date Type Department Care Team (Late st Contact Info) Description 02/18/2017 Telephone [place] [address] Ruby Negro MD Social History [...] Telephone Encounter - Ruby Negro MD - 02/18/2017 12:55 PM EST Called patient to discuss recent lab results. [...] with low counts (bleeding, infection, wound complications). CVA documented in this encounter Plan of Treatment Upcoming Encounters Date Type Department Care Team (Late st Contact Info) Description 06/30/2024 4:30 PM EDT Office Visit Hematology [place] [address] Shilpi Gallegos MD [facility] DR HEMATOLOGY [place] [address] documented as of this encounter Visit Diagnoses Not on filedocumented in this encounter Care Teams Bulk Station Operator Relationship Specialty Start Date End Date Radha Acuna MD [address] [place] [address] [place] [address] PCP - General 08/07/11 documented as of this encounter
--- OUTSIDE RECORDS SUMMARY | 2024-04-07 16:41 | XMS_ITS | Encounter Summary ---
Author Organization [facility] [place] [address] Care Team Providers Care Human Resources Leader Name Role Phone Radha Acuna MD Primary Care Provider +1- [phone] Encounter Details Date Type Department Care Team (Late st Contact Info) Description 02/22/2017 Orders Only Hematology [place] [address] Shilpi Gallegos MD [facility] [place] [address] Drug-induced pancytopenia Social History Tobacco Use Types Packs/Day Years [...] EDT Office Visit Hematology [place] [address] Shilpi Gallegos MD [facility] [place] [address] documented as of this encounter Visit Diagnoses Diagnosis Drug-induced pancytopenia Other drug-induced pancytopenia documented in this encounter Care Teams Human Resources Leader Relationship Specialty Start Date End Date Radha Acuna MD [address] [place] [address] [place] [address] PCP - General 08/07/11 documented as of this encounter
--- OUTSIDE RECORDS SUMMARY | 2024-04-07 16:41 | XMS_ITS | Encounter Summary ---
[place] [address] Care Team Providers Care Pharmacy Retail Support Specialist Name Role Phone Radha Acuna MD Primary Care Provider +1- [phone] Encounter Details Date Type Department Care Team (Late st Contact Info) Description 02/24/2017 [place] [address] Ashia Bell Social History Tobacco Use Types Packs/Day Years [...] encounter Miscellaneous Notes * Telephone Encounter - Ashia Bell - 02/24/2017 9:58 AM EST Age at diagnosis: 36 Date of diagnosis: September 11, 2016 Place of diagnosis: Internal Date of initial appointment: 09/16/2016 Surgeon: Wilber Referral to Medical Oncology: Yes, Internal Medical Oncologist:Rosy Referral to Radiation Oncology:No Radiation Oncologist: Other Referral to Plastic Surgery: Yes documented in this encounter Plan of Treatment Upcoming Encounters Date Type Department Care Team (Late st Contact Info) Description 06/30/2024 4:30 PM EDT Office Visit [place]ology [place] [address] Shilpi Gallegos MD [facility] DR HEMATOLOGY [place] [address] documented as of this encounter Visit Diagnoses Not on filedocumented in this encounter Care Teams Pharmacy Retail Support Specialist Relationship Specialty Start Date End Date Radha Acuna MD [address] [place] [address] [place] [address] PCP - General 08/07/11 documented as of this encounter
--- OUTSIDE RECORDS SUMMARY | 2024-04-07 16:41 | XMS_ITS | Encounter Summary ---
[place] [address] Care Team Providers Care Cataloging Assistant Name Role Phone Radha Acuna MD Primary Care Provider +1- [phone] Reason for Referral * Diagnostic Test (Routine) - Closed Specialty Diagnoses / Procedures Referred By Clara cisneros Referred To Contact Radiology Diagnoses Malignant neoplasm of right female breast, unspecified estrogen receptor status, unspecified site of breast Procedures NM [place] Node Injection Breast wo Imaging Ruby Negro MD [facility] [place] [address] [place] [address] Referral ID Status Reason Start Date Expiration Date V isits Requested Visits Authorized [id number] Closed Specialty Service Requested 02/10/2017 02/10/2018 1 1 Encounter Details Date Type Department Care Team (Late st Contact Info) Description 02/08/2017 Orders Only [place] [phone] Ruby Negro MD Malignant neoplasm of right female breast, unspecified estrogen receptor status, unspecified site of breast Social History Tobacco Use Types Packs/Day [...] EDT Office Visit Hematology and Oncology at [facility] [place] [address] Shilpi Gallegos MD [facility] DR HEMATOLOGY [place] [address] documented as of this encounter Results * NM [place] Node Injection Breast wo Imaging (03/15/2017 7:35 AM EST) Anatomical Region Laterality Modality Nuclear Medicine Impressions 03/15/2017 1:35 PM EST [place] node injections performed without complication. Narrative 03/15/2017 [...] patient left the department ingood condition. IMPRESSION [place] node injections performed without complication. Ruby Daniel MD IMG NM ORDERABLE S documented in this encounter Visit Diagnoses Diagnosis Malignant neoplasm of right female breast, unspecified estrogen receptor status, unspecified site of breast Malignant neoplasm of right female breast, unspecified estrogen receptor status, unspecified site of breast documented in this encounter Care Teams Cataloging Assistant Relationship Specialty Start Date End Date Radha Acuna MD [address] [place] [address] [place] [address] PCP - General 08/07/11 documented as of this encounter
--- OUTSIDE RECORDS SUMMARY | 2024-04-07 16:41 | XMS_ITS | Encounter Summary ---
Author Organization [facility] [place] [address] Care Team Providers Care Truck Caterer Name Role Phone Radha Acuna MD Primary Care Provider +1- [phone] Encounter Details Date Type Department Care Team (Late st Contact Info) Description 03/02/2017 Telephone Hematology [place] [address] Radha Riggins, RN Social History Tobacco Use [...] Telephone Encounter - Radha Riggins RN - 03/02/2017 9:09 AM EST Message received: Patient calling stating she is sick today and is wondering if you have any suggestions since she is neutropenic. Please call [phone] T/C To Patient: she reports since yesterday she has had a terrible sore throat and aching muscles. She denies fevers or chills. Denies cough, nasal congestion or sinus pressure, sore throat and muscle aches are the only symptoms she has at this time. She is wondering if she can take tylenol to helpwith aches. Plan: Advised patient ok to take tylenol for sore throat or aches however to avoid motrin as platelets remain low. Advised to take temp prior to taking tylenol to prevent masking a fever. Advised to continue to monitor and call with worsening symptoms, fever or further questions or concerns. Patient in agreement and intends to comply, she knows to call 02/11 with questions or concerns Message per MD: Ronnie Garcia, I think [...] have her go to her local lab Lab results received and reviewed, ANC 5.01, platelets 74. Discussed with MD, patient may take tylenol PRN as labs have improved. T/C To Patient: made her aware of the above per MD. She is in agreement. She wonders if she should get her flu shot now. Note to MD for further recommendation regarding flu shot. documented in this encounter Plan of Treatment Upcoming Encounters Date Type Department Care Team (Late st Contact Info) Description 06/30/2024 4:30 PM EDT Office Visit Hematology [place] [address] Shilpi Gallegos MD [facility] [address] [place] [address] documented as of this encounter Visit Diagnoses Not on filedocumented in this encounter Care Teams Truck Caterer Relationship Specialty Start Date End Date Radha Acuna MD [address] [place] [address] [place] [address] PCP - General 08/07/11 documented as of this encounter
--- OUTSIDE RECORDS SUMMARY | 2024-04-07 16:41 | XMS_ITS | Encounter Summary ---
Author Organization [facility] [place] [address] Care Team Providers Care Football Pad Repairer Name Role Phone Radha Acuna MD Primary Care Provider +1- [phone] Encounter Details Date Type Department Care Team (Latest Contact Info) Description 02/02/2017 8:15 AM EDT - 02/02/2017 8:18 AM EDT Hospital Encounter [place]ology [place] [address] Malignant neoplasm of overlapping sites of right female breast; Invasive ductal carcinoma of right breast Discharge [...] Progress Notes * Zaida Dawson RN - 02/02/2017 8:57 AM EDT Patient Name: Trina Frances Patient Age: 36 y.o. Birthdate: 1980 Admit date: 02/02/2017 Attending Physician: No att. providers found Access visit. See MAR and/or flowsheet. documented in this encounter Plan of Treatment Upcoming Encounters Date Type Department Care Team (Late st Contact Info) Description 06/30/2024 4:30 PM EDT Office Visit [place] [address] Mila Gallegos MD [facility] [address] [place] [address] Scheduled Orders Name Type Priority Associated Diagnoses Orde r Schedule CBC (with Diff) Lab Routine Malignant neoplasm of overlapping sites of right female breast 1 Occurrences starting 02/02/2017 until 02/02/2017 Comprehensive metabolic panel (non-fasting) Lab Routine Malignant neoplasm of overlapping sites of right female breast 1 Occurrences starting 02/02/2017 until 02/02/2017 documented as of this encounter Procedures Procedure Name Priority Date/Time Associated Diagnosis Comments HEMOGRAM Routine 02/02/2017 8:50 AM EDT DIFFERENTIAL, AUTOMATED Routine 02/02/2017 8:50 AM EDT CBC (WITH DIFF) Routine 02/02/2017 8:50 AM EDT COMPREHENSIVE METABOLIC PANEL Routine 02/02/2017 8:50 AM EDT documented in this encounter Results * Differential, Automated (02/02/2017 8:50 AM EDT) Neutrophil % 52.3 % [facility] Neutrophil Absolute 1.81 1.70 - 6.10 x10(3)/[facility] Lymph % 33.8 % [facility] Lymphocytes Abs 1.2 0.9 - 3.2 x10(3)/[facility] Monocyte % 10.1 % [facility] Monocyte Abs 0.4 0.3 - 0.9 x10(3)/[facility] Eos % 3.2 % [facility] Eosinophils Abs 0.1 0.0 - 0.4 x10(3)/[facility] Basophil % 0.0 % [facility] Baso Absolute 0.0 0.0 - 0.1 x10(3)/[facility] Immature Gran % 0.60 % [facility] Comment: Immature granulocytes(IG's)percentage and absolute count will include metamyelocytes, myelocytes, and promyelocytes. Blood smears from CBCs yielding IG's will be scanned manually for concordance. If this scan disagrees with the automated IG or if promyelocytes are noted, a manual differential will be performed. Immature Gran Absolute 0.02 0.00 - 0.04 x10(3)/mcL [facility] Blood specimen (specimen) 02/02/2017 8:50 AM EDT 02/02/2017 9:04 AM EDT Narrative Resulting Agency Comment Spec In Lab Mila Gallegos MD HEMATOLOGY ORDERABL ES [facility] [place] [address] * (ABNORMAL) Hemogram (02/02/2017 8:50 AM EDT) White Blood Cell 3.5(L) 4.0 - 9.5 x10(3)/ L [facility] Red Blood Cell 2.58(L) 4.00 - 5.21 x10(6)/ L [facility] Hemoglobin 9.6(L) 11.7 - 15.5 gm/dL [facility] Hematocrit 27.5(L) 35.7 - 45.8 % [facility] Mean Cell Volume 106.6(H) 82.6 - 94.4 fL [facility] Mean Cell Hemoglobin 37.2(H) 27.1 - 32.0 pg [facility] Mean Cell Hemoglobin Concentration 34.9 31.7 - 35.0 gm/dL [facility] Platelet 141(L) 145 - 357 x10(3)/ L [facility] RDW Standard Deviation 59.7(H) 37.0 - 46.0 fL [facility] RDW coefficient of variation 15.3(H) 11.5 - 14.1 % [facility] Mean Platelet Volume 9.9 7.6 - 12.9 fL [facility] NRBC% auto 0.0 % [facility] NRBC Absolute 0.000 0.000 - 0.000 x10(3)/mc L [facility] Blood specimen (specimen) 02/02/2017 8:50 AM EDT 02/02/2017 9:04 AM EDT Narrative Resulting Agency Comment Spec In Lab Mila Gallegos MD HEMATOLOGY ORDERABL ES [facility] [place] [address] * Comprehensive metabolic panel (non-fasting) (02/02/2017 8:50 AM EDT) Glucose 93 65 - 199 mg/dL [facility] Comment:Diabetes: >=200 mg/d L plus symptoms Blood Urea Nitrogen 14 8 - 18 mg/dL [facility] Creatinine 0.76 0.70 - 1.20 mg/dL [facility] Sodium 141 135 - 145 mmol/L [facility] Potassium 3.8 3.5 - 5.0 mmol/L [facility] Comment: Please note: ??Patients with WBC >100,000 may have falsely elevated Potassium levels. ??For accurate Potassium quantification in these patients send serum separator tube (gold top) for subsequent determinations. ??Contact the Clinical Chemistry Laboratory if there are any questions. Chloride 102 98 - 107 mmol/L [facility] Carbon Dioxide 28 22 - 31 mmol/L [facility] Anion Gap 11 5 - 15 mmol/L [facility] Calcium 9.8 8.5 - 10.5 mg/dL [facility] Protein, Total 7.0 6.1 - 8.0 gm/dL [facility] Albumin 4.5 3.2 - 5.2 gm/dL [facility] Aspartate Aminotransferase 28 0 - 30 unit/L [facility] Alanine Aminotransferase 23 0 - 30 unit/L [facility] Alkaline Phosphatase 74 40 - 104 unit/L [facility] Bilirubin, Total 0.2 0.2 - 1.3 mg/dL [facility] Est Glomerular Filtration Rate >60 >=60 [facility] Comment: The reported eGFR should be multiplied by 1.2 for patients. The MDRD is not an appropriate measure of renal function for patients with body mass extremes or in patients with acute kidney failure. http://WebRadar/DHnkdep http://WebRadar/DHMCnkf Blood specimen (specimen) 02/02/2017 8:50 AM EDT 02/02/2017 9:04 AM EDT Narrative Resulting Agency Comment Spec In Lab Mila Gallegos MD CHEMISTRY ORDERABLE S [facility] [place] [address] documented in this encounter Visit Diagnoses Diagnosis Malignant neoplasm of overlapping sites of right female breast Malignant neoplasm of other specified sites of female breast Invasive ductal carcinoma of right breast documented in this encounter Administered Medications Inactive Administered Medications - up to 3 most recent administrations Medication Order MAR Action Action Date Dose Rate Site sodium chloride 0.9 % flush 20 mL 20 mL, Intravenous, EVERY 1 MIN PRN, Starting on Wed02/02/17 at 0822, Until Wed02/03/17 at 0435, Vice President Integrated, Routine Given 02/02/2017 8:57 AM EDT 20 mLs documented in this encounter Care Teams Football Pad Repairer Relationship Specialty Start Date End Date Radha Acuna MD [address] [place] [address] [place] [address] PCP - General 08/07/11 documented as of this encounter
--- OUTSIDE RECORDS SUMMARY | 2024-04-07 16:41 | XMS_ITS | Encounter Summary ---
Author Organization [facility] [place] [address] Care Team Providers Care Environmental Conservation Officer Name Role Phone Radha Acuna MD Primary Care Provider +1- [phone] Reason for Visit * Auth/Cert Specialty Diagnoses [...] Expiration Date Visits Re quested Visits Authorized [id number] 1 1 Encounter Details Date Type Department Care Team (Late st Contact Info) Description 03/15/2017 8:02 AM EST Anesthesia [place] [id number] Norma Brown MD [facility] [place] [address] Mary Jane Reid MD Anesthesia Record Procedure Summary Procedure Name Responsible Anesthesiologist Anesthesia Start Time Anesthesia Stop Time MASTECTOMY, SIMPLE, COMPLETE-MICHAEL (WRVU 15) (Bilateral: Breast) Norma Brown MD 03/15/17 0802 03/15/17 1258 Events Date Time Event Comment 03/15/2017 0800 0802 Start 0808 AN Verify 0808 An Start Data 0814 An Induction 0816 An Intubation 0818 Quick Note Port de-accesse d. 500 units heparin instilled in port. 0819 Anesthesia Ready 0848 Procedure Start 0901 Break/Relief In NORMA SCHMID MD 0917 Break/Relief Out 1045 Break/Relief In NORMA SCHMID MD 1051 Break/Relief Out 1229 Break/Relief In NORMA SCHMID MD 1238 Procedure Stop 1243 Extubation/LMA Out 1247 an stop data 1258 Recovery or ICU Handoff Johana ent care was transferred to the destination unit staff after review of the patient's medical history, current anesthetic/surgical status and plan, according to the Provider Handoff Checklist. 1258 Stop Meds Name Total Midazolam 2 mg fentaNYL 50 mcg Propofol 150 mg Rocuronium 50 mg PHENYLephrine 80 mcg Ondansetron 8 mg ceFAZolin (ANCEF) 2g in dextrose 5% 100 mL 4 g Propofol INF 648.84 mg Heparin 500 Units lactated Ringers infusion 1,000 mL 1,400 mL * Agents Name O2 Air N2O Sevoflurane (et) * Blood No blood administrations on file. Lines, Drains, and Airways Type Details Placement Removal Drain/Device Site 03/15/17; 1153; Left ; breast; (15 fr drain); Dr. Frantz Zurita 03/15/17 1153 by Shu March, RN Drain/Device Site 03/15/17; 1155; Righ t; breast; (15 fr drain); Dr. Frantz Zurita 03/15/17 1155 by Shu March RN (RETIRED) Peripheral IV Line - Single Lumen 09/29/16; 0817; metacarpal vein (top of hand), left; 22 gauge; BECKY Cerda; intradermal injection, tolerated well; 03/15/17; 1226 09/29/16 0817 by Yulissa Acevedo RN 03/15/17 1226 by Lyric Watson RN (RETIRED) Implanted Port - Single Lumen (non-apheresis) 09/29/16; 0947; infraclavicular fossa, left; power injectable port; superior vena cava; Dr. Posada; Vaccess CT low-profile Lot #[id number]; 12/16/17; 1444 09/29/16 0947 by Diya Brown RN 12/16/17 1444 by Cj Louie RN Incision 09/29/16; 1011; ches t; horizontal (mediport insertion site); 12/08/21 (LDA cleanup utility RA#[id number]); 1715 (LDA cleanup utility RA#[id number]) 09/29/16 1011 by Diya Brown RN 12/08/21 1715 by Shannon Vickers Incision 10/02/16; neck; laparoscopic puncture; 12/08/21 (LDA cleanup utility RA#[id number]); 1715 (LDA cleanup utility RA#[id number]) 10/02/16 0000 by Eunice Cao RN 12/08/21 1715 by Shannon Vickers (RETIRED) Peripheral IV Line - Single Lumen 03/15/17; 0819; metacarpal vein (top of hand), left; [id number] catheter system; 18 gauge; 0; 03/16/17; 1252 03/15/17 0819 by Moises Kim CRNA 03/16/17 1252 by Pooja Sánchez RN ETT Mask Ventilation: Ea sy (1); ETT Type: Oral, Cuffed; ETT Size: 6.5 mm; Mac Blade: 3; Notes: Asleep, Pre-O2; Attempts: 1; Laryngoscopy Grade: 1; ETT Placement Verified By: Auscultation, Visual, Capnometry; Secured at Teeth: 20 cm; Inserted by: RALEIGH Kim; Removal Date: 03/15/17; Removal Time: 1243 03/15/17 0821 by Moises Kim PLATE SLITTER AND INSPECTOR 03/15/17 1243 by Norma Brown MD Incision 03/15/17; 0858; (anca ast); 12/08/21 (LDA cleanup utility RA#[id number]); 1715 (LDA cleanup utility RA#[id number]) 03/15/17 0858 by Robert Corral RN 08/29/22 1715 by Shannon Vickers Urethral Catheter 03/15/17; 0859; Surg yolis longer than 2 hours; Acute urinary retention; indwelling double lumen catheter; 14; inserted at this facility; 1; 10; 10; 03/15/17; 1345 03/15/17 0859 by Robert Corral, RN 03/15/17 1345 by Lyric Watson, RN documented in this encounter Social History Tobacco [...] OR Notes * Anesthesia Postprocedure Evaluation - Norma Brown MD - 03/15/2017 4:21 PM EST [facility] Department of Anesthesiology Post-procedure Note Patient: Trina Frances Procedure Summary Date Anesthesia Start Anesthesia Stop Room / Location 03/15/17 0802 1258 MH OR 14 / [facility] MAIN OR Procedure Diagnosis Surgeon Responsible Provider MASTECTOMY, SIMPLE, COMPLETE-MICHAEL (WRVU 15.85) (Bilateral Breast); BIOPSY OR EXCISION OF LYMPH NODE(S), OPEN, DEEP AXILLARY NODE(S) (WRVU 6.43) (Right Axilla); INTRAOPERATIVE ID (MAPPING) SENTINEL LYMPH NODE,INCLUDES INJECTION (WRVU 2.5) (Right ); MODIFIER SENTINEL NODE EXCISION (Right ); MODIFIER ,NIPPLE SPARING (Left ); BREAST RECONSTRUCTION, IMMEDIATE OR DELAYED, WITH TISSUE PHOTOGRAPHY PROFESSOR INCLUDINGSUBSEQUENT EXPANSION-MICHAEL (WRVU 18.5) (Right Breast); IMPLANTATION OF BIOLOGIC IMPLANT FOR SOFT TISSUE REINFORCEMENT (WRVU 3.65) (Right Breast) (RIGHT BREAST CANCER) Ruby Negro MD; Frantz Zurita MD Chiang, Laura M, MD All Anesthesia Providers: Anesthesiologist: Norma Brown MD PLATE SLITTER AND INSPECTOR: Moises Kim CRNA Most Recent Vitals: 03/16/17 0338 BP: 100/66 Pulse: 64 Resp: 16 Temp: 37 ??C (98.6 ??F) SpO2: 97% Pain 6 (03/16/17 1228) Patient Location: PACU/[facility] Level of Consciousness: Awake and Alert Pain Management: Pain Being Addressed PONV: None Cardiovascular Status: At Baseline and Hemodynamically Stable Respiratory Status: At Baseline and Stable Respiratory Status Postoperative Fluid Status: Intravascular EUvolemia Possible Anesthetic Complications: NONE apparent at time of evaluation Final Primary Anesthesia Type: General (The anesthetic type performed was the same as planned.) Comments: Despite bilateral PEC block with no evidence of pain under anesthesia (RR ~14 upon extubation, borderline low BPs throughout though MAPs > 65), patient very uncomfortable upon emergence.Has now received 2.6 mg dilaudid, tylenol, oxycodone. RR never above 15. No ketorolac per Dr Zurita.Wrote for 1mg of versed given concern by RN for some anticipatory anxiety prior to turns, etc., butpatient now resting comfortably following visit from family. * Anesthesia Procedure Notes - Sunil Ferris MD - 03/15/2017 8:30 AM EST Associated Order(s): ANESTHESIA BLOCK Procedure: Anesthesia Block Block: Post-op Pain Control, PEC block Start time: 03/15/2017 8:05 AM End time: 03/15/2017 8:20 AM Patient Location: Main OR Indication/Prep Position: supine Prep: chlorhexidine, patient draped, mask, cap, sterile gloves, hand hygeine Laterality: bilateral Injection Information Ultrasound Guidance: live and in-plane Ultrasound guidance was used to identify the targeted neuronal structure. Ultrasound was also used to identify needle positon and to identify surrounding tissue (bone, muscle, and blood vessels) to prevent inadvertent intraneural or intravascular needle placement and injection. The spread of local anesthetic was confirmed with live ultrasound imaging. Injection technique:single-shot Needle Length: 10 cm Gauge: 21 Needle Type: [id number]-zrhqe Medication injection made incrementally with aspirations. Nerve infiltration solution through a needle Ropivicaine 0.2% 60 mL Resident: Michael Resident: Fellow: SUNIL FERRIS Attending Physician: JESSICA ENGLE T ~~~~~~~~~~~~~~~~~~~~~~~~~~~~~~~~~~~~~~~~~~~~~~~~~~~~~~~~~~~~ * Anesthesia Preprocedure Evaluation - Norma Brown MD - 03/14/2017 10:32 PM EST Pre-Anesthesia Evaluation for: Trina Frances a 36 y.o. female. Procedure(s): MASTECTOMY, SIMPLE, COMPLETE-MICHAEL (WRVU 15.85) BIOPSY OR EXCISION OF LYMPH NODE(S), OPEN, DEEP AXILLARY NODE(S) (WRVU 6.43) INTRAOPERATIVE ID (MAPPING) SENTINEL LYMPH NODE,INCLUDES INJECTION (WRVU 2.5) MODIFIER SENTINEL NODE EXCISION MODIFIER , NIPPLE SPARING BREAST RECONSTRUCTION, IMMEDIATE OR DELAYED, W/ TISSUE PHOTOGRAPHY PROFESSOR, INCLUDING SUBSEQUENT EXPANSION (WRVU 18.5) IMPLANTATION OF BIOLOGIC IMPLANT FOR SOFT TISSUE REINFORCEMENT (WRVU 3.65) Medications: MAR and/or home medications have been reviewed. Physical Exam: There were no vitals filed for this visit. There is no height or weight on file to calculate BMI. Airway Assessment: Mallampati: II TM distance: >3 FB Neck ROM: full Cardiovascular Assessment: Rhythm: regular Rate: normal Pulmonary Assessment: breath sounds clear to auscultation Dental Assessment: Misc Assessment: Patient is wearing No contact(s). Other exam findings: Port Anesthesia Plan: ASA 2 general, with a(n) intravenous induction Region - Other Informed Consent: Anesthetic plan and risks discussed with patient and spouse. Use of blood products discussed with patient and spouse who consented to blood products. Plan discussed with PLATE SLITTER AND INSPECTOR. ABEL Staff Note Attending Note: Trina Frances is a 36 y.o. female who presents for the above procedure in the setting of breast cancer, R . 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 Anesthestic PMH: None on file NPO: Appropriate ROS positive for: Sore throat METS: >4 Cardiac: ECHO 2017 - LVEF 65%, no wma, no hemodyamically significant valvular abnl Labs: Lab Results Component Value Date WBC 2.5 (EXTERNAL/ABN) 02/19/2017 HCT 25.1 (EXTERNAL/ABN) 02/19/2017 K 3.8 02/02/2017 CREATININE 0.76 02/02/2017 Recent Labs 12/16/16 0730 12/08/16 1020 ABORH O Neg O Neg Anesthestic Plan: Plan GETA, PEC blocks, standard ASA monitors, PIV (removal of port access after induction) after discussion of benefits, indications, and risks (including but not limited to sore throat, dental injury, prolonged intubation, cardiac or neurologic event). Norma Brown MD documented in this encounter Plan of Treatment Upcoming Encounters Date Type Department Care Team (Late st Contact Info) Description 06/30/2024 4:30 PM EDT Office Visit Hematology [place] [address] Shilpi Gallegos MD [facility] [place] [address] documented as of this encounter Procedures Procedure Name Priority Date/Time Associated Diagnosis Comments ANESTHESIA BLOCK Routine 03/15/2017 8:31 AM EST Procedure Note - Sunil Ferris MD - 03/15/2017 8:30 AM ESTThis note is in progress. Procedure: Anesthesia Block Block: Post-op Pain Control, PEC block Start time: 03/15/2017 8:05 AM End time: 03/15/2017 8:20 AM Patient Location: Main OR Indication/Prep Position: supine Prep: chlorhexidine, patient draped, mask, cap, sterile gloves, handhygeine Laterality: bilateral Injection Information Ultrasound Guidance: live and in-plane Ultrasound guidance was used to identify the targeted neuronalstructure. Ultrasound was also used to identify needle positon and toidentify surrounding tissue (bone, muscle, and blood vessels) to preventinadvertent intraneural or intravascular needle placement and injection.The spread of local anesthetic was confirmed with live ultrasoundimaging. Injection technique:single-shot Needle Length: 10 cm Gauge: 21 Needle Type: Y-[id number]-drcld Medication injection made incrementally with aspirations. Nerve infiltration solution through a needle Ropivicaine 0.2% 60 mL Resident: Second Resident: Fellow: SUNIL FERRIS Attending Physician: JESSICA ENGLE ~~~~~~~~~~~~~~~~~~~~~~~~~~~~~~~~~~~~~~~~~~~~~~~~~~~~~~~~~~~~ documented in this encounter Visit Diagnoses Not [...] OR, Indication for (Active or Suspected): Prophylaxis Given 03/15/2017 11:17 AM EST 2 g Given 03/15/2017 8:17 AM EST 2 g fentaNYL 50 mcg/mL multi-dose injection PRN, Starting on Wed03/15/17 at 0820, Until Wed03/15/17 at 1301, Pain, Anesthesia Intra-op, Routine Given 03/15/2017 8:20 AM EST 50 mcg heparin (porcine) injection PRN, Starting on Wed03/15/17 at 0818, Until Wed03/16/17 at 1321, Anesthesia Intra-op, Routine Given 03/15/2017 8:18 AM EST 500 Units lactated Ringers infusion 1,000 mL 1,000 mL, at 100 mL/hr, Intravenous, CONTINUOUS, Starting on Wed03/15/17 at 0630, Until Wed03/15/17 at 1625, Day of Surgery (Day of Procedure) New Bag 03/15/2017 7:53 AM EST midazolam (PF) (VERSED) 1 mg/mL multi-dose injection PRN, Starting on Wed03/15/17 at 0802, Until Wed03/15/17 at 1301, Sleep, Anesthesia Intra-op, Routine Given 03/15/2017 8:02 AM EST 2 mg ondansetron (ZOFRAN) injection PRN, Starting on Wed03/15/17 at 1231, Until Wed03/15/17 at 1301, Nausea, Anesthesia Intra-op, Routine Given 03/15/2017 12:31 PM EST 8 mg PHENYLephrine in NS (PF) (DAVE-SYNEPHRINE) 0.8 mg/10 mL (80 mcg/mL) multi-dose injection Syrg PRN, Starting on Wed03/15/17 at 1129, Until Wed03/15/17 at 1301, Anesthesia Intra-op, Routine Given 03/15/2017 11:29 AM EST 80 mcg propofol (DIPRIVAN) 10 mg/mL bolus injection (Anesthesia) PRN, Starting on Wed03/15/17 at 0814, Until Wed03/15/17 at 1301, Anesthesia Intra-op Given 03/15/2017 8:16 AM EST 50 mg Given 03/15/2017 8:14 AM EST 100 mg propofol (DIPRIVAN) infusion CONTINUOUS PRN, Starting on Wed03/15/17 at 0820, Until Wed03/15/17 at 1301, Anesthesia Intra-op, Routine New Bag 03/15/2017 8:20 AM EST 50 mcg/kg/min 15.5 mL/hr rocuronium (ZEMURON) multi-dose injection PRN, Starting on Wed03/15/17 at 0815, Until Wed03/15/17 at 1301, Anesthesia Intra-op, Routine Given 03/15/2017 8:15 AM EST 50 mg documented in this encounter Care Teams Environmental Conservation Officer Relationship Specialty Start Date End Date Radha Acuna MD [address] [place] [address] [place] [address] PCP - General 08/07/11 documented as of this encounter
--- OUTSIDE RECORDS SUMMARY | 2024-04-07 16:41 | XMS_ITS | Encounter Summary ---
Author Organization [facility] [place] [address] Care Team Providers Care Binman Name Role Phone Radha Acuna MD Primary Care Provider +1- [phone] Encounter Details Date Type Department Care Team (Late st Contact Info) Description 02/18/2017 External Results Hematology [place] [address] Jess Odell, HEARING AID ASSEMBLY SUPERVISOR Malignant neoplasm of right female breast, unspecified [...] Office Visit Hematology [place] [address] Shilpi Gallegos MD [facility] HEMATOLOGY [place] [address] documented as of this encounter Procedures Procedure Name Priority Date/Time Associated Diagnosis Comments CBC (WITH DIFF) STAT 02/18/2017 10:06 AM EST Malignant neoplasm of right female breast, unspecified estrogen receptor status, unspecified site of breast documented in this encounter Results * (ABNORMAL) CBC (with Diff) (02/18/2017 10:06 AM EST) White Blood Cell 2.1(DEVELOPMENT PROFESSIONAL AL/ABN) EXTERNAL LAB Hemoglobin 8.7(DEVELOPMENT PROFESSIONAL AL/ABN) EXTERNAL LAB Hematocrit 24.6(EXTER NAL/ABN) EXTERNAL LAB Platelet 24(EXTERNA L/ABN) EXTERNAL LAB Neutrophil Absolute (ANC) - Automated 0.38(EXTER NAL/ABN) EXTERNAL LAB Blood specimen (specimen) 02/18/2017 10:06 AM EST Jess Odell HEARING AID ASSEMBLY SUPERVISOR HEMATOLOGY [facility] EXTERNAL LAB documented in this encounter Visit Diagnoses Diagnosis Malignant neoplasm of right female breast, unspecified estrogen receptor status, unspecified site of breast documented in this encounter Care Teams Binman Relationship Specialty Start Date End Date Radha Acuna MD [address] [place] [address] [place] [address] PCP - General 08/07/11 documented as of this encounter
--- OUTSIDE RECORDS SUMMARY | 2024-04-07 16:41 | XMS_ITS | Encounter Summary ---
[place] [address] Care Team Providers Care Style Advisor Name Role Phone Radha Acuna MD Primary Care Provider +1- [phone] Reason for Visit * Reason Onset Date Comments Labs Only 02/19/2017 Encounter Details Date Type Department Care Team (Late st Contact Info) Description 02/19/2017 Telephone Hematology [place] [id number] Flory Pitt RN Labs Only Social History Tobacco Use Types Packs/Day Years [...] Telephone Encounter - Flory Foster RN - 02/19/2017 1:41 PM EST Message received from assistant corporate secretary: Trina is looking for the results on labs. Please call [phone] Thanks. RN placed call to [facility] at [phone]. Lab reported they were drawn this morning and that they will fax them over now. Labs received. Provider notified. Plan per Jess Odell, CROZER OPERATOR: Patient labs improving. Patient still neutropenic and thrombocytopenic. Go to ED with temperature greater than 100.[address] Gallegos. Call placed to patient. Above plan reviewed with patient. Patient reports that she has a painful tear on her rectum, that does bleed when she has BMs. Provider notified. Per Jess Odell APRN: For constipation/tear in rectum have her take 100 mg BID Colace and if needed Senna or Miralax. Call placed to patient. Above per Jess Odell reviewed with patient. Patient verbalized agreement. RN reviewed with patient that she should monitor closely for s/s of infection. Check temperature atleast 2 times/day and call for temp > 100.4, chills, rigors, burning with urination, new productive cough of yellow or green sputum, new sore throat or sores in the mouth, diarrhea, or redness or swelling at IV sites or access device. Maintain good personal hygiene including good handwashing andstay away from people who are sick, avoiding large crowds of people. Do not clean cat litter or clean up after pets. Do not take rectal temperatures or use rectal suppositories. RN reviewed with patient that she should watch for s/s of bleeding and call clinic for any unusual bleeding or bruising: nosebleeds, bleeding gums that do not stop after 5 minutes of pressure, bruises/pinpoint-sized clusters of red bump on any area of the skin-called petechiae Seek emergency care if you experience: blood in urine or stool, blood in vomit or coffee ground vomit, or S/S stroke- Sudden headache, change in vision/speech, weakness on one side of your body, or facial drooping.Tips for dealing with low platelet counts: Avoid aspirin, ibuprofen, Aleve, Advil, Naprosyn, Floss gently. Use soft toothbrush, no toothpicks, Protect yourself from cuts or bruising your skin, Blow your nose gently, Avoid constipation, Electric razors only. Pt in agreement with plan and knows to call clinic with any new or worsening symptoms, concerns and/or questions. documented in this encounter Plan of Treatment Upcoming Encounters Date Type Department Care Team (Late st Contact Info) Description 06/30/2024 4:30 PM EDT Office Visit Hematology [place] [address] Shilpi Gallegos MD [facility] HEMATOLOGY [place] [address] documented as of this encounter Visit Diagnoses Not on filedocumented in this encounter Care Teams Style Advisor Relationship Specialty Start Date End Date Radha Acuna MD [address] [place] [address] [place] [address] PCP - General 08/07/11 documented as of this encounter
--- OUTSIDE RECORDS SUMMARY | 2024-04-07 16:41 | XMS_ITS | Encounter Summary ---
[place] [address] Care Team Providers Care Police Lieutenant Patrol Name Role Phone Radha Acuna MD Primary Care Provider +1- [phone] Encounter Details Date Type Department Care Team (Late Contact Info) Description 12/17/2016 Telephone Hematology [place] [phone] Myesha Urena Social History Tobacco Use Types [...] Miscellaneous Notes * Telephone Encounter - Myesha Urena RN - 12/17/2016 12:41 PM EDT Received cycle 4 TC-P on 12/16/16. MD would like weekly check-ins. RN attempted to call patient. No answer, mail box full, unable to leave a message. RN will continue to follow. documented in this encounter Plan of Treatment Upcoming Encounters Date Type Department Care Team (Late Contact Info) Description 06/30/2024 4:30 PM EDT Office Visit Hematology [place] [address] Shilpi Gallegos MD [facility] DR [place] [address] documented as of this encounter Visit Diagnoses Not on filedocumented in this encounter Care Teams Police Lieutenant Patrol Relationship Specialty Start Date End Date Radha Acuna MD [address] [place] [address] [place] [address] PCP - General 08/07/11 documented as of this encounter
--- OUTSIDE RECORDS SUMMARY | 2024-04-07 16:41 | XMS_ITS | Encounter Summary ---
Author Organization [facility] [place] [address] Care Team Providers Care Deputy Sheriff Court Services Name Role Phone Radha Acuna MD Primary Care Provider +1- [phone] Reason for Visit * Reason Onset Date Comments Follow-up 12/21/2016 Encounter Details Date Type Department Care Team (Late st Contact Info) Description 12/21/2016 Telephone Hematology [place] [phone] Flory Pitt RN Follow-up Social History Tobacco [...] Telephone Encounter - Flory Foster RN - 12/21/2016 8:48 AM EDT Weekly Check In: Please call patient for weekly check in. Last treatment 12/16. Seeing MD in clinic 01/06for cycle 5 TCH-P, please postpone to check in on 01/01 S/O: Call placed to patient. Patient reports feeling pretty good. Reports that the reduction of thethe chemotherapy seems to help with her symptoms. Reports that her fatigue is less severe. Reports nausea is lessened, reports also taking compazine to help with nausea. Denies diarrhea. Reports thatshe has had constipation, reports that it is extremely painful to have a BM due to hardness of stool and the first 2 BMs after treatment are really hard and then it lessens the further out from the infusion she gets. Reports taking metamucil and colace to help with stool softening, and reports thatthey work for her. Reports that she has a tear on her anus because every time she has BM there is some blood, reports she does not feel she needs to be seen for this and reports that Dr. Power is aware of this. Reports last BM today. Reports eating and drinking well, reports 5 16 oz water bottles daily. Reports that her headaches come and go, but she is no longer having migraines, reports headaches are better. Denies any other symptoms at this time. Assessment/Plan: Seeing MD in clinic on 01/06. Next RN weekly telephone call 01/01. Pt in agreement with plan and knows to call clinic with any concerns and/or questions. documented in this encounter Plan of Treatment Upcoming Encounters Date Type Department Care Team (Late st Contact Info) Description 06/30/2024 4:30 PM EDT Office Visit Hematology [place] [address] Shilpi Gallegos MD [facility] DR [place] [address] documented as of this encounter Visit Diagnoses Not on filedocumented in this encounter Care Teams Deputy Sheriff Court Services Relationship Specialty Start Date End Date Radha Acuna MD [address] [place] [address] [place] [id number] PCP - General 08/07/11 documented as of this encounter
--- OUTSIDE RECORDS SUMMARY | 2024-04-07 16:41 | XMS_ITS | Encounter Summary ---
Author Organization [facility] [place] [address] Care Team Providers Care Internal Controls Analyst Name Role Phone Radha Acuna MD Primary Care Provider +1- [phone] Encounter Details Date Type Department Care Team (Late st Contact Info) Description 03/02/2017 Orders Only Hematology [place] [phone] Shilpi Gallegos MD [facility] HEMATOLOGY [place] [address] Chronic fatigue Social History Tobacco Use Types Packs/Day Years [...] EDT Office Visit Hematology [place] [phone] Shilpi Gallegos MD [facility] HEMATOLOGY [place] [address] documented as of this encounter Visit Diagnoses Diagnosis Chronic fatigue Other malaise and fatigue documented in this encounter Care Teams Internal Controls Analyst Relationship Specialty Start Date End Date Radha Acuna MD [address] [place] [address] [place] [address] PCP - General 08/07/11 documented as of this encounter
--- OUTSIDE RECORDS SUMMARY | 2024-04-07 16:41 | XMS_ITS | Encounter Summary ---
[place] [address] Care Team Providers Care Certified Legal Investigator Name Role Phone Radha Acuna MD Primary Care Provider +1- [phone] Encounter Details Date Type Department Care Team (Late st Contact Info) Description 01/06/2017 Telephone Hematology [place] [address] Mary Anne Henry RN Social History Tobacco Use Types Packs/Day [...] encounter Miscellaneous Notes * Telephone Encounter - Mary Anne Henry RN - 01/06/2017 2:58 PM EDT Comprehensive Breast Program (CBP) Note Trina Frances is a 36 y.o. female with newly diagnosed ER/AK+/HER2-marley+ right breast IDC/DCIS (biopsies 09/11/2016 at [facility]) receiving cycle 5 of 6 planned cycles of TCH-P. She will RTC for C6 on 01/26/17. ?? Reason for call: Contacted patient per request of Dr. Gallegos to answer her pre-op and post-op concerns. Ant wants to make sure she is prepared as far as help with her children, ages 2 and 8, after surgery as her is working. She can have someone stay with her to help with the children and with combined rail operator, meal preparation, etc., and will plan to do so. She would like to have b/l mastectomy with reconstruction and to discuss further with Dr. Zurita, including which implants will be used. ?? Plan: Met with Trina and her , Rudi, as she was finishing chemotherapy infusion. Trina is aware CBP will arrange follow-up apts with 'kofi Negro and Yudith in the near future to complete plansfor surgery. She was given two Marsupial pouches for help with drain care, a camisole top which hasVelcro closures on the top and front, and two pillows to use under her arms during recovery. We discussed using a pillow or pillows under the seat belt on her ride home post-operatively. Addressed her questions and encouraged her to contact me with any additional questions or concerns.She has our contact information documented in this encounter Plan of Treatment Upcoming Encounters Date Type Department Care Team (Late st Contact Info) Description 06/30/2024 4:30 PM EDT Office Visit Hematology [place] [address] Shilpi Gallegos MD [facility] DR [place] [address] documented as of this encounter Visit Diagnoses Not on filedocumented in this encounter Care Teams Certified Legal Investigator Relationship Specialty Start Date End Date Radha Acuna MD [address] [place] [address] [place] [address] PCP - General 08/07/11 documented as of this encounter
--- OUTSIDE RECORDS SUMMARY | 2024-04-07 16:41 | XMS_ITS | Encounter Summary ---
Author Organization [facility] [place] [address] Care Team Providers Care Memorial Mason Name Role Phone Radha Acuna MD Primary Care Provider +1- [phone] Reason for Visit * Reason Comments Follow-up Encounter Details Date Type Department Care Team (Late st Contact Info) Description 01/26/2017 9:30 AM EDT Office Visit [place]ematology [place] [address] Shilip Gallegos MD [facility] [address] [place] [address] Invasive ductal carcinoma of right breast; Drug-induced anemia; Thrombocytopenia due to drugs; Medication management Social History Tobacco Use Types [...] Sign Reading Time Taken Comments Blood Pressure 107/68 01/26/2017 8:44 AM EDT Pulse 72 01/26/2017 8:44 AM EDT Temperature 36.6 ??C (97.9 ??F) 01/26/2017 8:44 AM ED T Respiratory Rate 18 01/26/2017 8:44 AM EDT Oxygen Saturation 99% 01/26/2017 8:44 AM EDT Inhaled Oxygen Concentration - - Weight 50.5 kg (111 lb 6.4 oz) 01/26/2017 8:44 A M EDT Height 155.8 cm (5' 1.34) 01/26/2017 8:44 AM ED T Body Mass Index 20.82 01/26/2017 8:44 AM EDT documented in this encounter Progress Notes * Shilpi Gallegos MD - 01/26/2017 9:30 AM EDT Subjective: Patient ID: Trina Frances is a 36 y.o. female. Cc: breast cancer Interval history: Trina is here for f/u. She has noticed easy bruising over the last several days, nonosebleeds or BRBPR. Nails are brittle and have many lines and ridges in them. She had another episode of sharp mid-back/ scapular pain. Lasts about 3 minutes. Has occurred 3 times since starting chemo, always on the day after chemo. Causes some SOB but pain starts first. No diaphoresis, headache, chest pain or nausea. First time happened when she was laying down, this time she was standing up in the living room. Resolved on its own. No new problems. Anxious to be done with chemotherapy. Curious about the plan from here, whether she may still lose eyebrows or eyelashes, whether her case will be discussed at tumor board or not. Has an appt with Dr. Zurita on 02/04. 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 On 09/11/16, she underwent a mammogram followed [...] cycles Cycle 1-6 TCH-P 10/05/16 - 01/29/17 Review of Systems Constitutional: Negative. HENT: Negative. Eyes: Negative. Respiratory: Negative. Cardiovascular: Negative. Gastrointestinal: Negative. Endocrine: Negative. Genitourinary: Negative. Musculoskeletal: Positive for back pain. Skin: Negative. Allergic/Immunologic: Negative. Neurological: Negative. Hematological: Bruises/bleeds easily. Psychiatric/Behavioral: Negative. Objective: Physical Exam Constitutional: She is oriented to person, place, and time. She appears well- developed and well-nourished. No distress. HENT: Alopecic, NAD. Eyes: Conjunctivae are normal. Cardiovascular: Normal rate. Pulmonary/Chest: Effort normal. Neurological: She is alert and oriented to person, place, and time. Skin: Skin is warm and dry. No rash noted. She is not diaphoretic. Psychiatric: She has a normal mood and affect. Her behavior is normal. Judgment and thought contentnormal. Nursing note and vitals reviewed. Recent Results (from the past 24 hour(s)) Comprehensive metabolic panel (non-fasting) Result Value Ref Range Glucose Lvl 87 65 - 199 mg/dL BUN 13 8 - 18 mg/dL Creatinine 0.75 0.70 - 1.20 mg/dL Sodium 141 135 - 145 mmol/L Potassium 3.8 3.5 - 5.0 mmol/L Chloride 101 98 - 107 mmol/L CO2 28 22 - 31 mmol/L Anion Gap 12 5 - 15 mmol/L Calcium 10.1 8.5 - 10.5 mg/dL Total Protein 7.1 6.1 - 8.0 gm/dL Albumin 4.4 3.2 - 5.2 gm/dL AST 37 (H) 0 - 30 unit/L ALT 30 0 - 30 unit/L Alk Phos 75 40 - 104 unit/L Total Bilirubin 0.2 0.2 - 1.3 mg/dL Estimated GFR >60 >=60 Hemogram Result Value Ref Range WBC 3.7 (L) 4.0 - 9.5 x10(3)/mcL RBC 2.34 (L) 4.00 - 5.21 x10(6)/mcL Hemoglobin 8.8 (L) 11.7 - 15.5 gm/dL Hematocrit 24.6 (L) 35.7 - 45.8 % MCV 105.1 (H) 82.6 - 94.4 fL MCH 37.6 (H) 27.1 - 32.0 pg MCHC 35.8 (H) 31.7 - 35.0 gm/dL Platelets 30 (L) 145 - 357 x10(3)/mcL RDWSD 49.0 (H) 37.0 - 46.0 fL RDWCV 14.7 (H) 11.5 - 14.1 % MPV 11.6 7.6 - 12.9 fL nRBC % Auto 0.0 % nRBC Abs Auto 0.000 0.000 - 0.000 x10(3)/mcL Differential, Automated Result Value Ref Range Neutrophils % 51.1 % Neutr Abs (ANC) 1.91 1.70 - 6.10 x10(3)/mcL Lymphocytes % 37.2 % Lymphocytes Abs 1.4 0.9 - 3.2 x10(3)/mcL Monocytes % 11.2 % Monocyte Abs 0.4 0.3 - 0.9 x10(3)/mcL Eosinophils % 0.0 % Eosinophils Abs 0.0 0.0 - 0.4 x10(3)/mcL Basophils % 0.0 % Basophils Abs 0.0 0.0 - 0.1 x10(3)/mcL Immature Gran % 0.50 % Dalia Gran Abs 0.02 0.00 - 0.04 x10(3)/mcL Scan, Peripheral Blood Result Value Ref Range Plat Estimate Decreased RBC Morphology Abnormal Macrocytes 1-5 /HPF Assessment and Plan: No problem-specific Assessment & Plan notes found for this encounter. #1 Breast cancer--Clinical Stage 2A right breast cancer, axillary and cervical node biopsies pre-chemo benign. Trina had a lot of great questions about treatment plan after chemotherapy. A lot will depend on the final review of pathology after her surgery. The exact size of invasive component is not clear based on pre-treatment imaging, could be anywhere from 1- 7 cm. Also magnitude of treatment response will be important. A year of trastuzumab and some form of hormonal therapy will definitely be recommended. Depending on response to NAC, there may also be a benefit to continuingpertuzumab with trastuzumab, and/ or adding ovarian suppression based on Aphinity and SOFT/ TEXT trial results respectively , although the latter did not include Her2 positive patients. #2 Chemotherapy--monitoring for toxicity--thrombocytopenia again secondary to chemotherapy despite 20% dose reduction of docetaxel. Will hold today and re- check Wednesday or Wednesday. Will reduce carboplatin with cycle 6 as well. This will also allow us to cancel the need for neulasta. Back pain is of unclear etiology but is self-limited and not recurrent. I expect it may have something to do with port access , pre-meds or chemotherapy. Will follow. Follow up Echo prior to surgery, will set that up now at [facility]. #3 Fatigue--stable. #4 Menopausal symptoms--pre-menopausal. Considering prophylactic oophorectomy/ ovarian suppression , but does not want to decide now. #5 Bone health--no chronic bone pain, and normal bones on pre-tx PET scan. If back pain continues, consider re-staging. #6 Medication management --no new prescriptions. Immodium dc'd from pre-meds as she had no diarrhea, and instead had abdominal pain from the immodium. Plan: Hold chemo today. Recheck CBC on Wednesday or Wednesday, reschedule cycle 6 with dose reduction of Carbo D/c neulasta F/u approximately 2 months to coordinate with post-op check and path review. documented in this encounter Plan of Treatment Upcoming Encounters Date Type Department Care Team (Late st Contact Info) Description 06/30/2024 4:30 PM EDT Office Visit H[place]ology [place] [address] Shilpi Gallegos MD [facility] DR HEMATOLOGY [place] [address] documented as of this encounter Visit Diagnoses Diagnosis Invasive ductal carcinoma of right breast Drug-induced anemia Other specified anemias Thrombocytopenia due to drugs Other secondary thrombocytopenia Medication management Encounter for long-term (current) use of other medications documented in this encounter Care Teams Memorial Mason Relationship Specialty Start Date End Date Radha Acuna MD [address] [place] [address] [place] [address] PCP - General 08/07/11 documented as of this encounter
--- OUTSIDE RECORDS SUMMARY | 2024-04-07 16:42 | XMS_ITS | Encounter Summary ---
Author Organization [facility] Address [facility] [place] [address] Care Team Providers Care Nuclear Medical Technologist Name Role Phone Radha Acuna MD Primary Care Provider [phone]- [phone] Reason for Visit * Reason Comments Breast Cancer * Consultation (Routine) - Closed Specialty Diagnoses / Procedures Referred By Clara cisneros Referred To Contact Hematology and Oncology Diagnoses Malignant neoplasm of overlapping sites of right female breast Shilpi Gallegos MD [facility] DR [place] [address] St Hem Onc Office [address] [place] [id number] Referral ID Status Reason Start Date Expiration Date V isits Requested Visits Authorized [id number] Closed Consult, Test & Treat 09/22/2016 09/22/2017 1 1 Encounter Details Date Type Department Care Team (Late st Contact Info) Description 10/20/2016 3:00 PM EDT Office Visit Hematology/Oncology at [address] [phone] Sanjay Nogueira MD Malignant neoplasm of overlapping sites of right female breast Social History Tobacco Use Types Packs/Day [...] Sign Reading Time Taken Comments Blood Pressure 116/76 10/20/2016 3:10 PM EDT Pulse 74 10/20/2016 3:10 PM EDT Temperature 36.9 ??C (98.4 ??F) 10/20/2016 3:10 PM ED T Respiratory Rate 16 10/20/2016 3:10 PM EDT Oxygen Saturation 100% 10/20/2016 3:10 PM EDT Inhaled Oxygen Concentration - - Weight 51.7 kg (114 lb) 10/20/2016 3:10 PM EDT Height 156 cm (5' 1.42) 10/20/2016 3:10 PM EDT copied Body Mass Index 21.25 10/20/2016 3:10 PM EDT documented in this encounter Progress Notes * Sanjay Nogueira MD - 10/20/2016 3:00 PM EDT Images from the original note were not included. Diagnosis: Right breast cancer, overlapping sites, clinically [id number] ER/RI + HER2 + ratio 10.0 ??Right breast axillary ultrasound biopsy negative PET scan negative ? Superior cervical node abnormality, biopsy 10/02/16 negative BRCA panel testing negative for germline mutations. SUBJECTIVE: Trina comes in today to establish medical care here in [facility]. She has been seen at [facility] for a new diagnosis of what appears to be a stage I ER RI positive HER2/marley positive breast cancer. The patient, however, is going to require a mastectomy for surgery, and recommendations were made after extensive staging studies for chemotherapy with carboplatin, docetaxel, pertuzumab and Herceptin with Neulasta support. She received that chemotherapy on October 05. She is scheduled for her second cycle next Wednesday in [place] along with a vaginal ultrasound for followup on some abnormal findings on scanning. Additionally, she has had a cervical lymph node biopsy that was found incidentally on ultrasound, and I am pleased to tell her that was negative. In talking to her about the chemotherapy, she noted that she became febrile soon after chemotherapy and went to the emergency room at [facility]. They diagnosed her as having a urinary tract infection and put her on Augmentin, and the fever rapidly resolved. Additionally, she was very achy for the past week and a half, and that is just now starting to get better. She was told to completely avoid Tylenol because it might mask a significant neutropenic fever. We spent some time talking about that. She also developed an actinic form rash on her face a few days after treatment as well, but that has started to resolve. She has had no other rashes. She is starting to get a little bit of early hair loss, and we discussed that as well. She thinks she can get through the chemotherapy but is really hoping that we can make adjustments to make the treatment less achy. Past Medical History: Diagnosis Date ??? Environmental allergies ??? IgA deficiency ??? Immune deficiency disorder ??? Invasive ductal carcinoma of right breast 09/22/2016 ??? Multiple food allergies ??? Placenta previa ??? Vitiligo Past Surgical History: Procedure Laterality Date ??? APPENDECTOMY ??? SECTION ??? NASAL SINUS SURGERY ??? TONSILLECTOMY Allergies Allergen Reactions ??? Aspirin Hives ??? Hydrocodone-Acetaminophen Hives ??? Tioconazole Medications 10/20/16 1611 Medication Sig Taking? potassium chloride (K-DUR/KLOR-CON) 10 mEq Tablet Sustained Release Take 10 mEq by mouth daily. Yes fluconazole (DIFLUCAN) 100 mg Tablet Take 100 mg by mouth daily. Yes multivitamin (THERAGRAN) Tablet Take 1 tablet by mouth daily. Yes cetirizine (ZYRTEC) 10 mg tablet Yes prochlorperazine (COMPAZINE) 10 mg Tablet Take 1 tablet by mouth every 6 hours as needed for Nauseafor up to 21 days. Patient not taking: Reported on 10/20/2016 lidocaine (LIDODERM) 5 % Adhesive Patch, Medicated Apply 1 patch onto the skin daily. (leave on for12 hours and remove for 12 hours) Patient not taking: Reported on 10/05/2016 lidocaine-prilocaine (EMLA) Cream Apply small amount of cream using q-tip on mediport site approx 30-60 minutes before access. Cover site with saran wrap. Patient not taking: Reported on 10/05/2016 Family History Problem Relation Age of Onset ??? Myocardial Infarction Father 51 sudden ??? Autoimmune Disorder Sister vitiligo ??? Lymphoma Maternal Aunt ??? Myocardial Infarction Paternal Grandfather ??? Breast Cancer Neg Hx ??? Ovarian Cancer Neg Hx Social History Social History ??? Marital status: [...] ??? Not on file Social History Narrative The patient is and has an 8-year-old son and a 2-year-old daughter. 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 HENT: Negative for sore throat, mouth sores and trouble swallowing. Eyes: Negative. Respiratory: Negative for cough, shortness of breath and wheezing. Cardiovascular: Negative for chest pain, palpitations and leg swelling. Gastrointestinal: Negative for nausea, vomiting, abdominal pain, diarrhea, constipation and abdominal distention. Genitourinary: Negative for dysuria and difficulty urinating. Musculoskeletal: Negative. Skin: Negative. Neurological: Negative. Hematological: Negative for adenopathy. BP 116/76 (Patient Position: Sitting) Pulse 74 Temp 36.9 ??C (98.4 ??F) (Oral) Resp 16 Ht 156 cm (5' 1.42) Comment: copied Wt 51.7 kg (114 lb) SpO2 100% BMI 21.25 kg/m2 Head: Normocephalic, without obvious abnormality, atraumatic Eyes: PERRL, conjunctiva/corneas clear, EOM's intact, fundi benign, both eyes Ears: Normal TM's and external ear canals, both ears Nose: Nares normal, septum midline, mucosa normal, no drainage or sinus tenderness Throat: Lips, mucosa, and tongue normal; teeth and gums normal Neck: Supple, symmetrical, trachea midline, no adenopathy, thyroid: not enlarged, symmetric, no tenderness/mass/nodules, no carotid bruit or JVD Back: Symmetric, no curvature, ROM normal, no CVA tenderness Lungs: Clear to auscultation bilaterally, respirations unlabored Chest Wall: No tenderness or deformity Heart: Regular rate and rhythm, S1, S2 normal, no murmur, rub or gallop Abdomen: Soft, non-tender, bowel sounds active all four quadrants, no masses, no organomegaly Extremities: Extremities normal, atraumatic, no cyanosis or edema Pulses: 2+ and symmetric Skin: Skin color, texture, turgor normal, no rashes or lesions Lymph nodes: Cervical, supraclavicular, and axillary nodes normal Neurologic: Normal ? Surgical Pathology 09/11/16 DIAGNOSIS A - ??Needle biopsies: ??Right breast lesion 1 Diagnosis: ?Invasive ductal carcinoma, intermediate grade. ? Ductal carcinoma in-situ, high grade with comedo necrosis. Microcalcifications: ??Associated with DCIS. On A1 - ER immunoreactivity: ??Positive 11-90% cancer cells with immunostaining . DIAGNOSIS ? Stain Intensity Moderate RI immunoreactivity: ??Positive 11-90% cancer cells with immunostaining ? Stain Intensity Moderate to focal Strong FISH studies are pending. ? *Diagnostic meraz for hormone receptors (ASCO/CAP GUIDELINES, 2010): ? Negative immunoreactivity: ?? <1% tumor cells with immunostaining ? Positive immunoreactivity: ?? >1% tumor cells with immunostaining Immunohistochemical assays were performed on paraffin-embedded tissue sections fixed ??in 10% neutral buffered formalin for 6-72 hours using the polymer system technique ??with appropriate positive and negative controls. ??The assays were performed ??according to the electrotype caster ??'s instructions using Anti-ER (SP1) and Anti- RI (16) ??antibodies. B - ??Needle biopsies: ??Right axillary node ultrasound biopsy Diagnosis: ?Benign node fragments. Step sections were examined. Electronically signed by: ??Thelma Church DO Verified: ??09/14/2016 ?Pathologist ADDITIONAL STUDIES Immunohistochemistry Studies: Formalin-fixed, paraffin-embedded tissue sections are studied using the polymer ??technique with appropriate positive and negative controls. ?These IHC studies ??provide the pathologist with adjunctive diagnostic information. Antibody specificity ??has been verified by testing antibodies on a series of in-house tissues with known ??immunohistochemical performance characteristics. The clinical interpretation of ??any antibody positive staining or its absence is evaluated within the context of ??clinical presentation, morphology, histopathological criteria and other diagnostic ??tests. ? Molecular Genetics RESULTS TEST: HER2(ERBB2) FISH, Breast METHOD: Fluorescence in situ hybridization (FISH) with chromosome 17 centromere ??(17p11.1-q11.1) probe and a locus specific probe for the HER2 gene locus (17q11.2- q12). SAMPLE ANALYZED: ??A1-8 RESULT: ?POSITIVE FOR HER2/MARLEY AMPLIFICATION ?TOTAL # SIGNALS/TOTAL # NUCLEI COUNTED FOR HER2 PROBE = 812 ?TOTAL # SIGNALS/TOTAL # NUCLEI COUNTED FOR CEP-17 PROBE = 81 ?HER2 TO CEP-17 RATIO = 10.0 ?(NORMAL RANGE ? <2.0) ?TOTAL # NUCLEI COUNTED = 40 Interpretation: ??Paraffin-embedded tissue sections were submitted for HER2(ERBB2)gene ??amplification analysis by FISH. ??Direct analysis was performed using the writewith ??Kit. ??Slide adequacy and signal enumeration were evaluated and satisfactory for ??both control and patient slides. ??A signal ratio derived from the HER2 probe and the ??CEP-17 centromere probe of ?2.0 is considered positive for HER2 gene amplification. The 2013 ASCO/CAP guideline recommendation for HER2 testing in breast cancer states ??that samples with a HER2 to CEP-17 ratio of less than 2.0 are non-amplified. ??Specimens with a HER2 to CEP-17 range of ?2.0 are considered amplified. This test is approved by the U.S. FDA for clinical diagnostic use. Reference: Konstantin AGUILAR, et al. Recommendations for human epidermal growth factor ??receptor 2 testing in breast cancer: [place] Society of Clinical Oncology/College ??of [place] Pathologists clinical practice guideline update. J Clin Oncol. 2013 Feb ??1. Breast MRI 09/17/16 ?? CLINICAL INDICATION: 36-year-old with newly diagnosed right breast cancer ?? TECHNIQUE: Multiplanar sequences were obtained pre- and post- gadolinium enhancement, to include SPGR weighted dynamic run-off and subtraction sequences obtained after the intravenous administration of 5 ccs of Gadovist. Computer algorithm analysis for lesion detection and kinetic contrast enhancement curve analysis was performed, using [employer] software. ?? COMPARISON STUDIES: Compared and/or correlated with prior studies including 09/11/2016 mammogram, ultrasound and ultrasound-guided core biopsies. ?? FINDINGS: ?? Background Enhancement Pattern (first post gadolinium image): Marked (>75% breast) Amount of Fibroglandular Tissue: Extremely dense ?? LEFT Breast: Confluent tissue is noted in the in the left upper outer quadrant with uninterrupted ductal structures, favoring physiologic variation/fibrocystic change. ?? RIGHT Breast:There are enhancing masses and nonmass [...] biopsied right breast lesion(s) is/are as follows: ?? RIGHT BREAST LESION 1: 1 cm Mass Right medial breast 3 O'Clock 3 cm from the nipple by MRI ?? Mass Shape: Round Margins: Not circumscribed - Spiculated Enhancement: Homogenous Delayed phase: Plateau ?? Non mass enhancement: Distribution: Segmental Enhancement: Initial upslope: Slow Delayed phase: Progressive ?? Lymph Node Basins/Other: There is no evidence of internal mammary or axillary adenopathy. Specifically the lymph node basin of the right axilla has been surveyed by ultrasound with core biopsy sampling of one of the dominant axillary lymph nodes yielding no evidence of malignancy.. No significant abnormalities are seen in the chest wall or skin.. ?? IMPRESSION MRI demonstrates extensive disease spanning 7 cm superior to inferior limited to the right breast upper inner quadrant without evidence of chest wall invasion. The anterior to posterior disease is best depicted mammographically. No evidence of axillary adenopathy. ?? RECOMMENDATION:Definitive management. ?Non-Residential Interior Designer Final Cervical Lymph Node Bx 10/02/16 DIAGNOSIS Negative for Malignancy Electronically signed by: ??Maurice LEGER, Miguel Mcelroy Verified: ??10/06/2016 ?Pathologist DISCUSSION Lymph node, cervical (US-guided FNA): Abundant lymphoid cells (predominantly small lymphocytes) are present; consistent ??with lymph node sampling. Negative for metastatic carcinoma. ONCBCN ONCOLOGY (AMB) 10/05/2016 Day, Cycle Day 1, Cycle 1 CARBOplatin (PARAPLATIN) IV 665 mg DOCEtaxel (TAXOTERE) IV 75 mg/m2/dose = 112 mg pegfilgrastim (NEULASTA) SubQ 6 mg pertuzumab (PERJETA) IV 840 mg TRASTuzumab (HERCEPTIN) IV 8 mg/kg/dose = 410 mg ASSESSMENT/PLAN: Trina is doing well after her first cycle of chemotherapy with carboplatin, docetaxel, pertuzumab and Herceptin. She is scheduled for her next treatment next week. We did discuss strategies to try and prevent arthralgias and myalgias. I do think it would be fine for her to take Tylenol, and I think significant neutropenic fever would not be masked. Most of the achiness occurs for several days posttreatment, and that is not the time one would be worried about neutropenic fever. Some of those symptoms, I think, are caused by the docetaxel, but it also possible that the neulasta contributed significantly to her symptoms. Consideration could be given to a slight dose reduction in Neulasta from 6 mg to 4 mg. Additionally, I told her she could try some Claritin, although she does take Zyrtec. It would be all right for her take Claritin, and occasionally, that will help as well. As far as the rash goes, I am not sure that this is a typical rash associated with docetaxel. Steroids can help with that, but this may also be actinic form rash related to the dexamethasone she received as a premed. If rash continues to be an issue, I might be tempted, however, to add in some steroids for a few days after treatment. The patient does want to have some of her treatment here in [facility]. We will arrange for her to be on the treatment schedule in 4 weeks from today, which will be for cycle 3. We went over her dosing and with all the symptoms she was having, she was afraid that being of small size, her dosage was not tailored to her actual size. We went over that in detail. She understands that it is adjusted to body surface area, renal function and is very specific for her size and body build. Following the completion of 6 cycles of chemotherapy, plans are for continuation of a year of Herceptin. She will need to see the surgeon back about her surgery. Clinically, she has not had any change in her breast tumor by her admission, although her breasts were not examined today. We will see her back in 4 weeks as planned. documented in this encounter Plan of Treatment Upcoming Encounters Date Type Department Care Team (Late st Contact Info) Description 06/30/2024 4:30 PM EDT Office Visit Hematology [place] [address] Shilpi Gallegos MD [facility] [place] [address] Scheduled Orders Name Type Priority Associated Diagnoses Orde r Schedule CBC (with Diff) Lab Routine Malignant neoplasm of overlapping sites of right female breast Expected: 11/17/2016 (Approximate), Expires: 10/20/2017 Comprehensive metabolic panel (non-fasting) Lab Routine Malignant neoplasm of overlapping sites of right female breast Expected: 11/17/2016 (Approximate), Expires: 10/20/2017 documented as of this encounter Visit Diagnoses Diagnosis Malignant neoplasm of overlapping sites of right female breast Malignant neoplasm of other specified sites of female breast documented in this encounter Care Teams Nuclear Medical Technologist Relationship Specialty Start Date End Date Radha Acuna MD [address] [place] [id number] PCP - General 08/07/11 documented as of this encounter
--- OUTSIDE RECORDS SUMMARY | 2024-04-07 16:42 | XMS_ITS | Encounter Summary ---
[place] [address] Care Team Providers Care Steam Shovel Operator Name Role Phone Radha Acuna MD Primary Care Provider +1- [phone] Encounter Details Date Type Department Care Team (Latest Contact Info) Description 09/22/2016 11:37 AM EDT - 09/22/2016 1:20 PM EDT Hospital Encounter [place]ematology [place] [address] Malignant neoplasm of female breast, unspecified laterality, unspecified site of breast Discharge Disposition: Home [...] of calcium and 1600iu of Vit D cetirizine (ZYRTEC) 10 mg tablet 10/02/2008 06/06/2019 documented as of this encounter Plan of Treatment Upcoming Encounters Date Type Department Care Team (Late st Contact Info) Description 06/30/2024 4:30 PM EDT Office Visit Hematology [place] [address] Shilpi Gallegos MD [facility] DR HEMATOLOGY [place] [address] documented as of this encounter Visit Diagnoses Diagnosis Malignant neoplasm of female breast, unspecified laterality, unspecified site of breast documented in this encounter Care Teams Steam Shovel Operator Relationship Specialty Start Date End Date Radha Acuna MD [address] [place] [address] [place] [address] PCP - General 08/07/11 documented as of this encounter
--- OUTSIDE RECORDS SUMMARY | 2024-04-07 16:42 | XMS_ITS | Encounter Summary ---
Author Organization [facility] [place] [address] Care Team Providers Care Packaging Technician Name Role Phone Radha Acuna MD Primary Care Provider +1- [phone] Encounter Details Date Type Department Care Team (Late st Contact Info) Description 09/28/2016 Notes [place] [id number] Larry Cutler MD [facility] [place] [address] Social History Tobacco Use Types Packs/Day Years [...] of this encounter Progress Notes * Larry Cutler MD - 09/28/2016 5:13 PM EDT PRE-PROCEDURE VIR NOTE: Referring Physician: No ref. provider found PCP: Radha Acuna MD Planned Procedure: U/S guided LN biopsy Procedure Indication:Enlarged r neck lymph node Presenting Diagnosis/ Complaint: Trina Frances is a 36 y.o. female with hx of breast cancer. Now with palpable lymph node. Past Medical/Surgical History Patient Active Problem List Diagnosis Code ??? 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 Invasive ductal carcinoma of right breast C50.911 Past Medical History: Diagnosis Date ??? Environmental allergies ??? IgA deficiency ??? Immune deficiency disorder ??? Invasive ductal carcinoma of right breast 09/22/2016 ??? Multiple food allergies ??? Placenta previa ??? Vitiligo Past Surgical History: Procedure Laterality Date ??? APPENDECTOMY ??? SECTION ??? NASAL SINUS SURGERY ??? TONSILLECTOMY Medications: Current Outpatient Prescriptions on File Prior to Visit Medication Sig Dispense Refill ??? multivitamin (THERAGRAN) Tablet Take 1 tablet by mouth daily. ??? cetirizine (ZYRTEC) 10 mg tablet No current facility-administered medications on file prior to visit. Allergies: Aspirin; Hydrocodone-acetaminophen; and Tioconazole Social History and Habits: Social [...] Hx ??? Ovarian Cancer Neg Hx Physical Exam: Pending Labs: Lab Results Component Value Date WBC 6.2 09/16/2016 HCT 40.5 09/16/2016 PLATELET 218 09/16/2016 BUN 13 09/16/2016 CREATININE 0.75 09/16/2016 ALKPHOS 64 09/16/2016 AST 22 09/16/2016 ALBUMIN 4.9 09/16/2016 BILIDIR 0.1 09/16/2016 BILITOT 0.5 09/16/2016 ALT 13 09/16/2016 PROT 7.9 09/16/2016 Prior relevant imaging: U/S at shows 1.6 cm right posterior supererior neck mass, likely lymph node Assessment/Plan: Biopsy/drain access site: right neck Patient Position: Prone or decub depending on lesion location Cytopathology presence needed: Yes Local anesthetic only Medications to discontinue (and days): [none] Labs: none documented in this encounter Plan of Treatment Upcoming Encounters Date Type Department Care Team (Late st Contact Info) Description 06/30/2024 4:30 PM EDT Office Visit Hematology [place] [address] Shilpi Gallegos MD [facility] DR [place] [address] documented as of this encounter Visit Diagnoses Not on filedocumented in this encounter Care Teams Packaging Technician Relationship Specialty Start Date End Date Radha Acuna MD [address] [place] [address] [place] [address] PCP - General 08/07/11 documented as of this encounter
--- OUTSIDE RECORDS SUMMARY | 2024-04-07 16:42 | XMS_ITS | Encounter Summary ---
[place] [address] Care Team Providers Care Documentum Consultant Name Role Phone Radha Acuna MD Primary Care Provider [phone]- [phone] Reason for Referral * Diagnostic Test (Routine) - Closed Specialty Diagnoses / Procedures Referred By Contac t Referred To Contact Radiology Diagnoses Malignant neoplasm of overlapping sites of right female breast Procedures IR Mediport Placement / Exchange Shilpi Gallegos MD [facility] [address] HEMATOLOGY [place] [address] [place] [address] Referral ID Status Reason Start Date Expiration Date V isits Requested Visits Authorized Closed Specialty Service Requested 09/22/2016 09/22/2017 3 3 * Consultation (Routine) - Closed Specialty Diagnoses / Procedures Referred By Clara cisneros Referred To Contact Hematology and Oncology Diagnoses Malignant neoplasm of overlapping sites of right female breast Shilpi Gallegos MD [facility] [address] HEMATOLOGY [place] [address] [facility] Hem Onc Office [address] [place] [id number] Referral ID Status Reason Start Date Expiration Date V isits Requested Visits Authorized Closed Consult, Test & Treat 09/22/2016 09/22/2017 1 1 Reason for Visit * Reason Comments Schedule Office Case * Consultation (Routine) - Specialty Diagnoses / Procedures Referred By Contac t Referred To Contact Hematology and Oncology Diagnoses Breast cancer ok to over book per new breast cancer Procedures NEW PATIENT Radha Acuna MD [address] [place] [address] [place] [address] Shilpi Gallegos MD [facility] DR HEMATOLOGY [place] [address] Referral ID Status Reason Start Date Expiration Date V isits Requested Visits Authorized [id number] 09/22/2016 09/22/2017 1 1 Encounter Details Date Type Department Care Team (Late st Contact Info) Description 09/22/2016 9:30 AM EDT Office Visit [place]ematology [place] [address] Shilpi Gallegos MD [facility] DR HEMATOLOGY [place] [address] Mary Anne Henry RN Cho, Michael Y, MD Malignant neoplasm of overlapping sites of [...] Sign Reading Time Taken Comments Blood Pressure 107/71 09/22/2016 9:20 AM EDT Pulse 69 09/22/2016 9:20 AM EDT Temperature 36.9 ??C (98.4 ??F) 09/22/2016 9:20 AM ED T Respiratory Rate 16 09/22/2016 9:20 AM EDT Oxygen Saturation 99% 09/22/2016 9:20 AM EDT Inhaled Oxygen Concentration - - Weight 51.8 kg (114 lb 3.2 oz) 09/22/2016 9:20 A M EDT Height 156.1 cm (5' 1.46) 09/22/2016 9:20 AM ED T Body Mass Index 21.26 09/22/2016 9:20 AM EDT documented in this encounter Progress Notes * Praveen Bee MD - 09/22/2016 9:30 AM EDT Images from the original note were not included. Oncology Clinic: Initial Consultation Attending Physician: Dr. Shilpi Gallegos Referring physician: Dr. Radha Acuna Reason for referral: Breast cancer HPI: Trina Frances is a 36 y.o. woman who presents with newly diagnosed right breast cancer. In 07/2016,she noted a tender right breast lump without skin changes or nipple discharge. 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 On 09/11/16, she underwent a mammogram followed by ultrasound showing 2 right anca ast masses and right axilla node 1.2cm. Biopsy showed invasive ductal carcinoma, grade 2 with DCIS.HER2+ (FISH HER2:CEP-17 = 10), ER+/DC+ (11-90%). A right axilla node biopsy was [...] Negro from surgical oncology who recommended a mastectomy. She is here today to discuss chemotherapy. In regards to review of systems, outside of appetite loss and anxiety since being diagnosed, she isfeeling well. Since she had her second daughter by C- section two years ago, she's had intermittent lower abdominal discomfort and tenderness around the site of her scar when her bladder is full. She denies any changes to bowel habits. No urinary symptoms. At times she feels like it takes a minute to remember what she did in prior days but this is not consistent or getting worse over time. She denies headaches different from her migraines, vision changes, syncope, dizziness, unintentional weightloss, bone pain, chest pain, dyspnea, cough, hematuria, or swelling of the extremities. Review of systems: Constitutional: Negative. Eyes: Negative. Respiratory: Negative. Cardiovascular: Negative. Gastrointestinal: see HPI Genitourinary: Negative. Skin: Negative. Neurological: see HPI Hematological: Negative. Psychiatric/Behavioral: Negative. 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 Social drinker. Lives with and 2 kids (ages 2 and 8). Works as a respiratory therapist here at [facility]. Has lots of family support. Menstrual History: 2 pregnancies, 2 deliveries. Menarche age 14. Used OCPs for 15 years total, last used 9 years ago. Allergies: Aspirin; Hydrocodone-acetaminophen; and Tioconazole Medications: Current Outpatient Prescriptions on File Prior to Visit Medication Sig Dispense Refill ??? multivitamin (THERAGRAN) Tablet Take 1 tablet by mouth daily. ??? cetirizine (ZYRTEC) 10 mg tablet No current facility-administered medications on file prior to visit. Vital Signs: BP 107/71 (Patient Position: Sitting) Pulse 69 Temp 36.9 ??C (98.4 ??F) (Temporal) Resp 16 Ht 156.1 cm (5' 1.46) Wt 51.8 kg (114 lb 3.2 oz) LMP 09/16/2016 (Exact Date) SpO2 99% BMI 21.26 kg/m2 Physical Exam: GA: pleasant; cooperative; tearful but no physical distress. HEENT: oral mucosa - moist; no oral lesions; neck supple; CVS : S1, S2 +, RRR, no murmurs or gallops RS :CTABL, no wheeze or crackles. Breast: Two palpable, non-tender, ~1cm fixed nodules of the right breast in upper, inner quadrant at ~2:00 Lymphatic: no palpable cervical, supraclavicular, or axillary nodes GI: BS +, soft, tender to moderate palpation mid, lower abdomen, no palpable masses, not distended,no guarding, no rebound, no organomegaly Neuro: no focal deficits. Skin: warm, dry, no rash, hypopigmentation in visible extremities Musculoskeletal: negative Ext: No pedal edema. Psychiatric: normal affect and mood Labs: Reviewed CBC and CMP from 09/16/16: normal Radiology/Studies: Reviewed most recent MRI and mammogram images Assessment/Plan: Trina Frances is a 36 y.o. woman with a history of IgA deficiency who presents with newly diagnosed right breast invasive ductal carcinoma (ER+/DC+ 11-90%, HER2+). She is here to discuss chemotherapy options. She has already seen Dr. Negro who recommends mastectomy. We reviewed her history and pathology. Radiographically, she seems to have an early stage cancer based on the small tumor masses seen on MRI. However the full extent of her disease is not clear as there is a mix of enhancing and non-enhancing masses. Because of this ambiguity and she has HER2+ disease, we think systemic neoadjuvant therapy would be appropriate for her. We know a right axillary node biopsy was negative and no n odes were detected on MRI. So we think a regimen like TCHP (taxotere, carboplatin, herceptin, pertuzumab) is reasonable. It is given IV on day 1 every 3 weeks with a plan for 6 cycles before surgery.Some of the side effects include cytopenias that may delays in treatment, neutropenia with risk forinfection, anemia, fatigue, thrombocytopenia with risk for bleeding or bruising, loss of appetite, nausea, vomiting, diarrhea, hair loss, peripheral neuropathy, reversible heart failure as well a temporary chemotherapy induced menopause causing hot flashes and vaginal dryness and irritation. She also has the potential to lose fertility but declines referral to fertility specialists as she is not interested in having more children. She will need both baseline and periodic echocardiograms to assess her EF while on Herceptin. We will order a mediport. During chemotherapy, she will be followed clinically as we do not routinely scan unless there were signs of progression. After surgery, she would receive additional Herceptin to complete a total of 1 year of treatment. We briefly discussed the benefit of adjuvant hormone therapybut because she is being overwhelmed with a lot of information today, that can be discussed down the road once she completes chemotherapy. I informed her that we have a palliative care team to help her with coping if she is interested. It sounds like she has strong family support. She has an appointment today with our genetics counselors given her early age of diagnosis. We willalso order a PET scan to rule out distant metastases as she is complaining of intermittent abdominal discomfort. She will return in 2 weeks so that we can review the results of the PET scan. She requests to be treated up at [facility] as it is much closer to home. We can certainly accommodate her. She has our contact information and knows to call us with any questions or concerns. Praveen Bee MD Hematology/Oncology fellow Pager [phone] * Shilpi Gallegos MD - 09/22/2016 9:30 AM EDT I have seen the patient and reviewed the resident's above history and I agree with the details as written. The assessment and plan were formulated in discussion with me and I agree with them as documented. Requesting MD: Ruby Negro Reason for referral: new dx her2 positive breast cancer, 1-7 cm area of abnormality in right breast. PCP: Radha Acuna Pertinent History: Self-palpated lump in August, did not resolve within one month, sought appropriate medical attention. Mammogram shows extensive abnormal calcifications extending to nipple, biopsy c/wIDCA and DCIS. MRI shows 2 dominant suspicious components contiguous with the mass, 1 suspicious lymph node. Biopsy of the node was benign. 2nd area of suspicion not biopsied. Pathology c/w IDCA Grade 2 ER/DC+ hER2 + , and high grade DCIS. Pertinent Exam: Palpable 2 cm mass at 2-3:00. No palpable adenopathy. Labs reviewed, normal alk phos, normal lft's. Major issues addressed: Given suspicious lymph node on MRI (biopsy neg) and exact size of invasive component unknown, this could be a higher risk stage II and not just a stage I, so additional staging is reasonable. She will benefit from her2 targeted therapy in any case but toxicities can be mitigated by adjusting to the appropriate stage as needed: TCH-P for Stage I, THP-FEC for Stage II-III (followed by ovarian suppression + exemestane) or TH in the unlikely event of Stage IV disease. Will arrange to start treatment carmita in [facility] per per request. If necessary, can start here at [facility] for cycle 1 and transfer to [facility] for cycle 2. Plan: Echo, PET, Port Referral to [facility] Anticipate TCH-P to start within 2 wks. Thank you very much for this referral, we appreciate the opportunity to participate in her care. documented in this encounter Miscellaneous Notes * Addendum Note - Shilpi Gallegos MD - 09/22/2016 5:23 PM EDTAddended by: SHILPI GALLEOGS on: 09/22/2016 05:23 PM Modules accepted: Orders documented in this encounter Plan of Treatment Upcoming Encounters Date Type Department Care Team (Late st Contact Info) Description 06/30/2024 4:30 PM EDT Office Visit Hematology [place] [address] Shilpi Gallegos MD [facility] [address] [place] [address] Scheduled Referrals Name Type Priority Associated Diagnoses Orde r Schedule Referral to Hematology and Oncology Outpatient Referral Routine Malignant neoplasm of overlapping sites of right female breast Ordered: 09/22/2016 documented as of this encounter Procedures Procedure Name Priority Date/Time Associated Diagnosis Comments NM PET CT SKULL BASE TO MID-THIGH ([facility]) Routine 09/29/2016 12:30 PM EDT documented in this encounter Results * PET CT Standard Skull Base to Mid-Thigh (09/29/2016 12:30 PM EDT) Anatomical Region Laterality Modality Nuclear Medicine Impressions 09/29/2016 6:08 PM EDT 1. ??Two FDG avid medial right breast [...] acetabulum, likely below the sensitivity of PET. Thank you for referring this patient to [facility] PET [facility]. I have personally reviewed the image(s) and the residents interpretation and agree with the findings, Sonam Milagros at 09/29/2016 6:08 PM Narrative 09/29/2016 6:08 PM EDT EXAMINATION: PET-CT STANDARD SKULL BASE TO MID-THIGH CLINICAL HISTORY: staging breast cancer TECHNIQUE: Following IV injection of 57-dcowfv-5-deoxyglucose (FDG) a standard uptake of approximately 60 minutes, a noncontrast CT scan followed by a PET scan were acquired from the base of the skull to mid thighs. The noncontrast CT was used for anatomic localization and photon attenuation correction of the PET scan. No oral contrast was administered. Blood glucose level: 64 (mg/dL) FDG dose: 9.2 mCi COMPARISON: Breast MRI 09/17/2016 FINDINGS: HEAD/NECK: Normal variant brown fat activity in [...] left femoral head and posterior left acetabulum. Procedure Note Sonam Linares MD - 09/29/2016 EXAMINATION: PET-CT STANDARD SKULL BASE TO MID-THIGH CLINICAL HISTORY: staging breast cancer TECHNIQUE: Following IV injection of 92-unqibo-4-deoxyglucose (FDG) astandard uptake of approximately 60 minutes, a noncontrast CT scan followed by aPET scan were acquired from the base of the skull to mid thighs. The noncontrast CTwas used for anatomic localization and photon attenuation correction of thePET scan. No oral contrast was administered. Blood glucose level: 64 (mg/dL) FDG dose: 9.2 mCi COMPARISON: Breast MRI 09/17/2016 FINDINGS: HEAD/NECK: Normal variant brown fat activity in the bilateral supraclavicularregions. CT visualized partially imaged air-fluid level is noted in a hypoplasticappearing left maxillary sinus. CHEST: Two hypermetabolic lesions in the medial right breast [facility] known diagnosis of invasive ductal carcinoma. There is a hypermetabolic approximately 6 x 3 mm right axillary lymph node (axial images 35, 36),adjacent to a surgical clip. Additional nonpathologically enlarged less intensely hypermetabolic right axillary lymph nodes are noted. Foci of activity seenin the left axilla corresponds to normal variant brown fat. Additionalsmall hypermetabolic focus seen in the left axilla seen on axial images 42-43,better appreciated on the coronal images, appears to correspond to a small subcentimeter lymph node on CT. Normal activity in all remaining soft tissue regions. A left-sidedMediport with tip terminating in the right atrium. ABDOMEN/PELVIS: Hypermetabolic 5 mm in short axis distal right external iliac lymph node(axial images 168-169). Activity seen within the endometrium is likelyphysiologic. Focus of activity in the posterior right hemipelvis (axial image 164)may represent functioning ovarian tissue. Incidental CT visualized findings: punctate nonobstructing right renalcalculus and suture material along the cecum consistent with history of prior appendectomy. SKELETON/EXTREMITIES: Normal marrow activity in all regions of the axial and visualizedappendicular skeleton. Indeterminate CT visualized tiny sclerotic foci in the leftfemoral head and posterior left acetabulum. IMPRESSION 1. Two FDG avid medial right breast lesions, corresponding to patient'sknown breast carcinoma. 2. Small hypermetabolic right axillary lymph nodes, left axillary lymphnode, and distal right external iliac lymph node, indeterminate for reactiveversus jose enrique metastases. 3. Hypermetabolic activity in the right hemipelvis, may representfunctioning ovarian tissue. Anatomic evaluation is limited on thesenoncontrast-enhanced CT images. For complete evaluation, pelvic ultrasound is recommended. 4. Indeterminate CT visualized tiny sclerotic foci in the left femoralhead and posterior left acetabulum, likely below the sensitivity of PET. Thank you for referring this patient to [facility]. I have personally reviewed the image(s) and the residents interpretationand agree with the findings, Sonam Linares at 09/29/2016 6:08 PM Shilpi Gallegos MD IMG PET ORDERABLES * IR Mediport Placement / Exchange (09/29/2016 10:18 AM EDT) Anatomical Region Laterality Modality X-Ray Angiograph y Narrative 09/29/2016 11:48 AM EDT INTERVENTIONAL RADIOLOGY PROCEDURE NOTE Procedure: 1) US guided left internal jugular vein access 2) Placement of left chest port. Indication for Procedure: Need for durable venous access 36 yo female with a recently diagnosed ER/DC/Her2 positive R breast cancer. We have been asked to place a port for chemotherapy administration. Consent: After discussing the risks (including infection, hemorrhage, damage to surrounding structures, respiratory depression) and benefits, the patient consented to the procedure. Method of Sedation: ??Due to the painful nature of the procedure, patient received split doses of intravenous fentanyl and versed from the IR nurse while pulse, pressure, and oxygen saturation were continuously monitored. 1% lidocaine was used for local analgesia. Technique: Prior to beginning the procedure, a standard time out Moment of Truth was performed to confirm all meraz aspects (including the patient's identity, informed consent, medical record number, allergies, planned procedure and laterality if appropriate) all of which were correct. The patient received a dose of antibiotics for prophylaxis. The left neck and upper chest were prepped and draped. Maximum barrier sterile technique was used throughout the procedure. ??Ultrasound was used to localize the left internal jugular vein. ??1% lidocaine SQ was administered for local anesthesia, and a 21 ga needle was advanced under ultrasound guidance into the left internal jugular and a 0.018 wire was advanced into SVC. ??The remainder of the procedure was performed with fluoroscopic guidance. A 4 Fr introducer sheath was placed and the wire exchanged for a 0.035 3J wire. The wire was advanced into the IVC. Lidocaine and Bupivacaine was then infiltrated in a caudal-lateral direction, and infiltrated over a 2 cm infraclavicular area for pocket creation. ??A 1.5 cm incision was made, and with blunt dissection a pocket created. ??The port was attached to the catheter, placed into the pocket. ??A tunneler was then used to bring the catheter through the tunnel to the venotomy site. The 4 Fr introducer sheath was exchanged for a peel-away sheath over the wire. The wire and inner dilator were removed and the catheter advanced into the SVC. ??The sheath was removed. ??The port flushed and aspirated well. ??The pocket was closed using a two layer technique (2-0 vicryl deep interrupted and 4-0 vicryl running subcuticular). The skin closed with indermil. The port was flushed with heparin. Device Information: Vaccess CT (POWER) Port LOT- [id number] Medications: Lidocaine 1% <10 mL SQ, Bupivacaine-Epinephrine 0.25 %-1:200,000 injection <20 mL;?? Versed 4 mg IV, Fentanyl ??200 mcg IV Antibiotic Prophylaxis: Ancef 2 g IV Contrast: none Fluoroscopy Time: ??0.4 min EBL: <5 cc Complications: ??No immediate Findings: 1) US exam of the left IJV showed a widely patent compressible vessel. 2) New left chest port with the catheter tip at the RA/SVC junction. Impression: 1) Placement of CT POWER port in left chest. 2) Port ready for use. Crop Picker(s): Resident/Fellow: ??Coleman Posada DO Attending: Dr. Sims I, Dr. Sims, was present throughout the procedure. I was present during the intraservice time as documented by the IR Nurse. ?? 09/29/2016 Shilpi Gallegos MD IMG IR ORDERABLES documented in this encounter Visit Diagnoses Diagnosis Malignant neoplasm of overlapping sites of right female breast Malignant neoplasm of other specified sites of female breast Malignant neoplasm of overlapping sites of right female breast Malignant neoplasm of other specified sites of female breast documented in this encounter Care Teams Documentum Consultant Relationship Specialty Start Date End Date Radha Acuna MD [address] [place] [address] [place] [address] PCP - General 08/07/11 documented as of this encounter
--- OUTSIDE RECORDS SUMMARY | 2024-04-07 16:42 | XMS_ITS | Encounter Summary ---
[place] [address] Care Team Providers Care 3Rd Grade Reading Teacher Name Role Phone Radha Acuna MD Primary Care Provider [phone]- [phone] Reason for Visit * Reason Onset Date Comments Medication Refill 09/30/2016 Encounter Details Date Type Department Care Team (Late st Contact Info) Description 09/30/2016 Refill Hematology [place] [address] Aletha Reece, RN Social History Tobacco Use Types Packs/Day [...] encounter Miscellaneous Notes * Telephone Encounter - Aletha Mejía RN - 09/30/2016 11:11 AM EDT Message received from clinical area secretary: Patient called looking for some Emla cream for her port site. She would like it called into [facility] in [facility] Please call her when you have a moment. Script prepared and sent to provider for review, signature and escribe. documented in this encounter Plan of Treatment Upcoming Encounters Date Type Department Care Team (Late st Contact Info) Description 06/30/2024 4:30 PM EDT Office Visit Hematology [place] [address] [facility] DR HEMATOLOGY [place] [address] documented as of this encounter Visit Diagnoses Not on filedocumented in this encounter Care Teams 3Rd Grade Reading Teacher Relationship Specialty Start Date End Date Radha Acuna MD [address] [place] [address] [place] [address] PCP - General 08/07/11 documented as of this encounter
--- OUTSIDE RECORDS SUMMARY | 2024-04-07 16:42 | XMS_ITS | Encounter Summary ---
Author Organization [place] [address] Care Team Providers Care Underwater Trapper Name Role Phone Radha Acuna MD Primary Care Provider +1- [phone] Reason for Visit * Reason Onset Date Comments Follow-up 12/02/2016 Weekly check in Encounter Details Date Type Department Care Team (Late st Contact Info) Description 12/02/2016 Telephone Hematology [place] [phone] Flory Pitt RN Follow-up (Weekly check in ) Social History Tobacco Use Types Packs/Day Years [...] Telephone Encounter - Flory Foster RN - 12/02/2016 8:40 AM EDT Follow up: Dr. Gallegos would like patient called weekly to assess post chemo symptoms. Please call patient to see how she is doing and notify Dr. Gallegos. S/O: Patient reports that she is feeling okay. Denies fevers. Reports that she has had diarrhea, better than before, in the AM twice daily for the last 2 days, denies diarrhea today. Denies constipation. Denies vomiting, reports some nausea and is taking the antiemetics and reports that they have been helping. Reports appetite is improving, fluid intake is good reports 16 oz bottles of water x 5 d ay. Reports that the hot flashes are still pretty bad at night, reports having the windows open and fans on. Reports that she read about a natural remedy for night sweats (1 tablespoon of apple cider vinegar and 1/4 teaspoon baking soda, for 3 days and then after 3 days just continue with apple cider vinegar) and she is going to begin taking this. Assessment/Plan: Patient reports that she is going to take the apple cider vinegar home remedy for hot flashes at this time. RN suggested patient to decrease caffeine, chocolate, use fans, layer clothes, or if they become intolerable can consider medications for intervention. Denies wanting medication for hot flashes at this time. Pt in agreement with plan and knows to call clinic with any concerns and/or questions.Provider notified. documented in this encounter Plan of Treatment Upcoming Encounters Date Type Department Care Team (Late st Contact Info) Description 06/30/2024 4:30 PM EDT Office Visit Hematology [place] [address] Shilpi Gallegos MD [facility] [address] HEMATOLOGY [place] [address] documented as of this encounter Visit Diagnoses Not on filedocumented in this encounter Care Teams Underwater Trapper Relationship Specialty Start Date End Date Radha Acuna MD [address] [place] [address] JOSE MIGUEL MENDOZA [address] PCP - General 08/07/11 documented as of this encounter
--- OUTSIDE RECORDS SUMMARY | 2024-04-07 16:42 | XMS_ITS | Encounter Summary ---
Author Organization [facility] [place] [address] Care Team Providers Care Consulting Senior Practice Director Name Role Phone Radha Acuna MD Primary Care Provider +1- [phone] Reason for Visit * Diagnostic Test (Routine) - Closed Specialty Diagnoses / Procedures Referred By Clara cisneros Referred To Contact Radiology Diagnoses Breast cancer P RONN 99631/LJ 114 LBS / XANAX / STRICT DIET RESTRICTIONS DUE TO MEDIPORT PLACEMENT/ MEDIPORT WILL BE ACCESSED BEFORE PET SCAN & WILL NEED TO BE DE-ACCESSED AFTER SCAN-BC CONFIRMED-LEXI Procedures PET CT STANDARD SKULL BASE TO MID-THIGH NM PCTM GLUCOSE/INJECT Shilpi Gallegos MD [facility] HEMATOLOGY AND [place] [address] [place] [address] Referral ID Status Reason Start Date Expiration Date Visits Re quested Visits Authorized [id number] Closed 09/29/2016 09/29/2017 2 2 Encounter Details Date Type Department Care Team (Latest Contact Info) Description 09/29/2016 11:19 AM EDT - 09/29/2016 11:59 PM EDT Hospital Encounter [place] [address] [facility] DR HEMATOLOGY AND [place] [address] Discharge Disposition: Home Social History Tobacco Use [...] EDT Office Visit Hematology [place] [address] [facility] [address] [place] [address] documented as of this encounter Procedures Procedure [...] Thank you for referring this patient to [facility]. I have personally reviewed the image(s) and the residents interpretation and agree with the findings, Sonam Milagros at 09/29/2016 6:08 PM Narrative 09/29/2016 6:08 PM EDT EXAMINATION: PET-CT STANDARD SKULL BASE TO MID-THIGH CLINICAL HISTORY: staging breast cancer TECHNIQUE: Following IV injection of 77-kaqbmc-2-deoxyglucose (FDG) a standard uptake of approximately 60 [...] breast cancer TECHNIQUE: Following IV injection of 15-qteqji-4-deoxyglucose (FDG) astandard uptake of approximately 60 minutes, [...] lesions in the medial right breast corresponds topatient's known diagnosis of invasive ductal carcinoma. There [...] Thank you for referring this patient to [facility]. I have personally reviewed the image(s) and the residents interpretationand agree with the findings, Sonam Linares at 09/29/2016 6:08 PM Shilpi Gallegos MD IMG PET ORDERABLES documented in this encounter Visit Diagnoses Not on filedocumented in this encounter Care Teams Consulting Senior Practice Director Relationship Specialty Start Date End Date Radha Acuna MD [address] [place] [address] [place] [address] PCP - General 08/07/11 documented as of this encounter
--- OUTSIDE RECORDS SUMMARY | 2024-04-07 16:42 | XMS_ITS | Encounter Summary ---
Author Organization [facility] [place] [address] Care Team Providers Care Supervisor Fireworks Assembly Name Role Phone Radha Acuna MD Primary Care Provider +1- [phone] Encounter Details Date Type Department Care Team (Late st Contact Info) Description 11/17/2016 Telephone Hematology [place] [address] Myesha Urena Social History Tobacco [...] Telephone Encounter - Myesha Urena, RN - 11/17/2016 1:21 PM EDT Request from provider: Please see patient in infusion. Recent concerns: migraines, diarrhea, nausea, mouth sores. Treatment: Cycle 3 11/17, Taxotere, Pertuzumab and Herceptin. RN spoke with patient in infusion and discussed her migraines which she states resolved with ibuprofen. She states she had some diarrhea but was resolved after taking immodium. She states she had some nausea the first week after chemo and she didn't like taking compazine but she was drinking gingertea which helped. She states she had some mouth sores on the back of her tongue that went away reasonably fast without intervention. She states they did not interfere with eating or drinking. She states she is drinking plenty of fluids, that she is pushing herself to drink. She states this most recent cycle she tolerated much better than the first. RN instructed patient to swish with baking soda and salt water to help prevent mouth sores. Instructed her to use her compazine in addition to yojana if she develops nausea. RN encouraged the use of imodium for diarrhea, also discussed a BRAT diet. Discussed the importance of preventing dehydration. RN notified patient that RN will check in frequently to assess. Pt in agreement with plan and knows to call clinic with any concerns and/or questions. documented in this encounter Plan of Treatment Upcoming Encounters Date Type Department Care Team (Late st Contact Info) Description 06/30/2024 4:30 PM EDT Office Visit Hematology [place] [address] Shilpi Gallegos MD [facility] DR [place] [address] documented as of this encounter Visit Diagnoses Not on filedocumented in this encounter Care Teams Supervisor Fireworks Assembly Relationship Specialty Start Date End Date Radha Acuna MD [address] [place] [address] [place] [address] PCP - General 08/07/11 documented as of this encounter
--- OUTSIDE RECORDS SUMMARY | 2024-04-07 16:42 | XMS_ITS | Encounter Summary ---
[place] [address] Care Team Providers Care Lobsterman Name Role Phone Radha Acuna MD Primary Care Provider +1- [phone] Encounter Details Date Type Department Care Team (Latest Contact Info) Description 11/24/2016 11:40 AM EDT - 11/24/2016 11:59 PM EDT Hospital Encounter Hematology [place] [address] Light headed Discharge Disposition: Home Social History Tobacco Use [...] 1600iu of Vit D potassium chloride (K-DUR/KLOR-CON) 10 mEq Tablet Sustained Release Take 20 mEq by mouth daily. 12/08/2016 fluconazole (DIFLUCAN) 100 mg Tablet Take 100 [...] Progress Notes * Susan Prince RN - 11/24/2016 12:07 PM EDT Patient Name: Trina Frances Patient Age: 36 y.o. Birthdate: 1980 Admit date: 11/24/2016 Attending Physician: No att. providers found Access visit. See MAR and/or flowsheet. documented in this encounter Miscellaneous Notes * Addendum Note - Zaida Dawson RN - 11/24/2016 1:09 PM EDTEncounter addended by: Zaida Dawson RN on: 11/24/2016 1:09 PM
Actions taken: Flowsheet accepted, MAR administration accepted documented in this encounter Plan of Treatment Upcoming Encounters Date Type Department Care Team (Late st Contact Info) Description 06/30/2024 4:30 PM EDT Office Visit Hematology [place] [address] Mila Gallegos MD [facility] DR [place] [address] documented as of this encounter Procedures Procedure Name Priority Date/Time Associated Diagnosis Comments SCAN, PERIPHERAL BLOOD Routine 7 12:00 PM EDT HEMOGRAM Routine 11/24/2016 12:00 PM EDT Light headed DIFFERENTIAL, AUTOMATED Routine 11/24/2016 12:00 PM EDT Light headed CBC (WITH DIFF) Routine 11/24/2016 12:00 PM EDT Light headed COMPREHENSIVE METABOLIC PANEL Routine 11/24/2016 12:00 PM EDT Light headed documented in this encounter Results * Scan, Peripheral Blood (11/24/2016 12:00 PM EDT) [facility] Plat estimate Decreased [facility] RBC Morphology Abnormal [facility] Ovalocytes 1-5 /HPF [facility] Tear Cell 1-5 /HPF [facility] Dohle Bodies Present [facility] Blood specimen (specimen) 11/24/2016 12:00 PM EDT 11/24/2016 12:08 PM EDT Narrative Resulting Agency Comment Spec In Lab Mila Gallegos MD HEMATOLOGY ORDERABL ES [facility] [place] [address] * (ABNORMAL) Differential, Automated (11/24/2016 12:00 PM EDT) [facility] Neutrophil % 35.5 % [facility] Neutrophil Absolute 2.08 1.70 - 6.10 x10(3)/mc L [facility] Lymph % 29.3 % [facility] Lymphocytes Abs 1.7 0.9 - 3.2 x10(3)/mc L [facility] Monocyte % 33.9 % [facility] Monocyte Abs 2.0(H) 0.3 - 0.9 x10(3)/mc L [facility] Eos % 0.0 % [facility] Eosinophils Abs 0.0 0.0 - 0.4 x10(3)/mc L [facility] Basophil % 0.3 % [facility] Baso Absolute 0.0 0.0 - 0.1 x10(3)/mc L [facility] Immature Gran % 1.00 % [facility] Comment: Immature granulocytes(IG's)percentage and absolute count will include metamyelocytes, myelocytes, and promyelocytes. Blood smears from CBCs yielding IG's will be scanned manually for concordance. If this scan disagrees with the automated IG or if promyelocytes are noted, a manual differential will be performed. Immature Gran Absolute 0.06(H) 0.00 - 0.04 x10(3)/[facility] Blood specimen (specimen) 11/24/2016 12:00 PM EDT 11/24/2016 12:08 PM EDT Narrative Resulting Agency Comment Spec In Lab Mila Gallegos MD HEMATOLOGY ORDERABL ES [facility] [place] [address] * (ABNORMAL) Hemogram (11/24/2016 12:00 PM EDT) White Blood Cell 5.9 4.0 - 9.5 x10(3)/[facility] Red Blood Cell 2.50(L) 4.00 - 5.21 x10(6)/[facility] Hemoglobin 8.2(L) 11.7 - 15.5 gm/dL [facility] Hematocrit 22.9(L) 35.7 - 45.8 % [facility] Mean Cell Volume 91.6 82.6 - 94.4 fL [facility] Mean Cell Hemoglobin 32.8(H) 27.1 - 32.0 pg [facility] Mean Cell Hemoglobin Concentration 35.8(H) 31.7 - 35.0 gm/dL [facility] Platelet 127(L) 145 - 357 x10(3)/[facility] RDW Standard Deviation 52.7(H) 37.0 - 46.0 fL [facility] RDW coefficient of variation 16.2(H) 11.5 - 14.1 % [facility] Mean Platelet Volume 10.5 7.6 - 12.9 fL [facility] NRBC% auto 0.0 % [facility] NRBC Absolute 0.000 0.000 - 0.000 x10(3)/mc L [facility] Blood specimen (specimen) 11/24/2016 12:00 PM EDT 11/24/2016 12:08 PM EDT Narrative Resulting Agency Comment Spec In Lab Mila Gallegos MD HEMATOLOGY ORDERABL ES [facility] [place] [address] * (ABNORMAL) Comprehensive metabolic panel (non-fasting) (11/24/2016 12:00 PM EDT) Glucose 106 65 - 199 mg/dL [facility] Comment:Diabetes: >=200 mg/d L plus symptoms Blood Urea Nitrogen 7(L) 8 - 18 mg/dL [facility] Creatinine 0.76 0.70 - 1.20 mg/dL [facility] Comment: Please note that the pediatric reference intervals supplied above were not validated at [facility]. Results from pediatric patients should be interpreted in conjunction to the patient's age, height and muscle mass. Sodium 138 135 - 145 mmol/L [facility] Potassium 3.1(L) 3.5 - 5.0 mmol/L [facility] Comment: Please note: ??Patients with WBC >100,000 may have falsely elevated Potassium levels. ??For accurate Potassium quantification in these patients send serum separator tube (gold top) for subsequent determinations. ??Contact the Clinical Chemistry Laboratory if there are any questions. Chloride 98 98 - 107 mmol/L [facility] Carbon Dioxide 27 22 - 31 mmol/L [facility] Anion Gap 13 5 - 15 mmol/L [facility] Calcium 9.4 8.5 - 10.5 mg/dL [facility] Protein, Total 6.9 6.1 - 8.0 gm/dL [facility] Albumin 4.3 3.2 - 5.2 gm/dL [facility] Aspartate Aminotransferase 31(H) 0 - 30 unit/L [facility] Alanine Aminotransferase 26 0 - 30 unit/L [facility] Alkaline Phosphatase 72 40 - 104 unit/L [facility] Bilirubin, Total 0.3 0.2 - 1.3 mg/dL [facility] Est Glomerular Filtration Rate >60 >=60 [facility] Comment: This estimated GFR [...] the following links into your internet browser. http://[email or web address]/DHnkdep [email or web address] Blood specimen (specimen) 11/24/2016 12:00 PM EDT 11/24/2016 12:08 PM EDT Narrative Resulting Agency Comment Spec In Lab Mila Gallegos MD CHEMISTRY ORDERABLE S [facility] [place] [address] documented in this encounter Visit Diagnoses Diagnosis Light headed Dizziness and giddiness documented in this encounter Administered Medications Inactive Administered Medications - up to 3 most recent administrations Medication Order MAR Action Action Date Dose Rate Site heparin, porcine 100 unit/mL flush 500 Units 500 Units, Intercatheter, DAILY PRN, 1 dose, Starting on Wed11/24/16 at 1151, Until Wed11/24/16 at 1309, Line Care, Terminal Flush for de-accessing of Implantable Port, Routine Given 11/24/2016 1:09 PM EDT 500 Units sodium chloride 0.9 % flush 10 mL 10 mL, Intravenous, DAILY PRN, Starting on Wed11/24/16 at 1151, Until 11/25/16 at 0435, for the accessing and continued maintenance of an Implantable Port device, Routine Given 11/24/2016 1:09 PM EDT 20 mLs Given 11/24/2016 12:04 PM EDT 20 mLs documented in this encounter Care Teams Lobsterman Relationship Specialty Start Date End Date Radha Acuna MD [address] [place] [address] [place] [address] PCP - General 08/07/11 documented as of this encounter
--- OUTSIDE RECORDS SUMMARY | 2024-04-07 16:42 | XMS_ITS | Encounter Summary ---
Author Organization [facility] [place] [address] Care Team Providers Care Real Estate Job Titles Name Role Phone Radha Acuna MD Primary Care Provider +1- [phone] Encounter Details Date Type Department Care Team (Late st Contact Info) Description 10/19/2016 Orders Only Hematology [place] [phone] Mila Gallegos MD [facility] [place] [address] Abnormal positron emission tomography (PET) scan Social History Tobacco Use Types Packs/Day Years [...] EDT Office Visit Hematology [place] [address] Mila Gallegos MD [facility] [place] [address] documented as of this encounter Results * US Transvaginal Non OB (10/27/2016 3:03 PM EDT) Anatomical Region Laterality Modality Ultrasound 10/27/2016 2:43 PM EDT Impressions 10/27/2016 3:58 PM EDT ??Normal transvaginal pelvic sonogram. Specifically, normal right ovary.I have personally reviewed the image(s) and the residents interpretation andagree with the findings, Sonam Linares at 10/27/2016 3:50 PM ?Sonam Linares MD Electronically Signed Final Report ?? 10/27/2016 03:57 pm Narrative 10/27/2016 3:58 PM EDT Gynecological Report ?(Signed Final 10/27/2016 03:57 pm) PATIENT INFO: ID #: ? [id number] ?: ??[birth year] (36 yrs) Name: ? TRINA BALL ? Visit Date: 10/27/2016 02:43 pm PERFORMED BY: Performed By: ? Pooja Malagon RDMS Attending: ?Milagros LEGER, Sonam Calix Resident: ? Jami LEGER, Alejo Germain Referred By: ?MILA GALLEGOS Location: ? [place] SERVICE(S) PROVIDED: ??UTV - Transvaginal - [id number] ?[id number] INDICATIONS: ??abnormal PET scan of uterus and ovaris COMPARISON: PET/CT: 09/29/16. -------- HISTORY: -------- Age: ?? 36 Menses: ?around the sixth per patient Hormone Treatment: ? None per patient ------- UTERUS: ------- Uterus: ? Visualized Position: ?? Anteverted Size (cm) ?L: ??8.13 ?W: ?? 4.2 ?H: ??3.52 ENDOMETRIUM: Endometrium: ?Normal appearance Thickness(mm): ?6 ------- CERVIX: ------- Multiple small nabothian cysts. CUL-DE-SAC: No fluid is visualized. RIGHT OVARY: Status: ?? Visualized Size (cm) ?L: ??1.86 ?W: ?? 3.15 ? H: ??1.21 Vol (ml): ?3.7 Morphology: ?Normal appearance LEFT OVARY: Status: ?? Visualized Size (cm) ?L: ??2.4 ? W: ?? 2.24 ? H: ??1.68 Vol (ml): ?4.7 Morphology: ?Normal appearance Type: ?? Corpus luteum Size (cm) ?L: ??0.91 ?W: ?? 1.24 ? H: ??0.72 Vol (ml): ?0.4 Procedure Note Sonam Linares MD - 10/27/2016 Gynecological Report (Signed Final 10/27/2016 03:57 pm) PATIENT INFO: ID #: [id number] : [birth year] (36 yrs) Name: TRINA BALL Visit Date: 10/27/2016 02:43 pm PERFORMED BY: Performed By: Pooja Malagon RDMS Attending: Sonam Linares MD Resident: Alejo Farrell MD Referred By: MILA GALLEGOS Location: [place] SERVICE(S) PROVIDED: UTV - Transvaginal - [id number] INDICATIONS: abnormal PET scan of uterus and ovaris COMPARISON: PET/CT: 09/29/16. -------- HISTORY: -------- Age: 36 Menses: around the sixth per patient Hormone Treatment: None per patient ------- UTERUS: ------- Uterus: Visualized Position: Anteverted Size (cm) L: 8.13 W: 4.2 H: 3.52 ENDOMETRIUM: Endometrium: Normal appearance Thickness(mm): 6 ------- CERVIX: ------- Multiple small nabothian cysts. CUL-DE-SAC: No fluid is visualized. RIGHT OVARY: Status: Visualized Size (cm) L: 1.86 W: 3.15 H: 1.21 Vol (ml): 3.7 Morphology: Normal appearance LEFT OVARY: Status: Visualized Size (cm) L: 2.4 W: 2.24 H: 1.68 Vol (ml): 4.7 Morphology: Normal appearance Type: Corpus luteum Size (cm) L: 0.91 W: 1.24 H: 0.72 Vol (ml): 0.4 IMPRESSION Normal transvaginal pelvic sonogram. Specifically, normal right ovary.I have personally reviewed the image(s) and the residents interpretation andagree with the findings, Sonam Linares at 10/27/2016 3:50 PM Sonam Linares MD Electronically Signed Final Report 10/27/2016 03:57 pm Mila Gallegos MD IMG US PELVIC ORDER ZAFAR documented in this encounter Visit Diagnoses Diagnosis Abnormal positron emission tomography (PET) scan Abnormal positron emission tomography (PET) scan documented in this encounter Care Teams Real Estate Job Titles Relationship Specialty Start Date End Date Radha Acuna MD [address] [place] [address] [place] [address] PCP - General 08/07/11 documented as of this encounter
--- OUTSIDE RECORDS SUMMARY | 2024-04-07 16:42 | XMS_ITS | Encounter Summary ---
Author Organization [facility] [place] [address] Care Team Providers Care Drone Operator Name Role Phone Radha Acuna MD Primary Care Provider +1- [phone] Reason for Visit * Reason Comments Breast [...] HCL, 25MCG, INJECTION (ALOXI) Shilpi Gallegos MD [facility] [address] [place] [address] [facility] [address] [place] [address] Referral ID Status Reason Start Date Expiration Date Visits Re quested Visits Authorized [id number] Closed 10/02/2016 04/03/2017 99 [phone] Encounter Details Date Type Department Care Team (Latest Contact Info) Description 10/27/2016 7:31 AM EDT - 10/27/2016 2:22 PM EDT Hospital Encounter Hematology [place] [address] Invasive ductal carcinoma of right [...] Progress Notes * Roseann Lockwood RN - 10/27/2016 11:09 AM EDT Patient Name: Trina Frances Patient Age: 36 y.o. Birthdate: 1980 Admit date: 10/27/2016 Attending Physician: No att. providers found TIME TREATMENT STARTED: 0910 TIME TREATMENT ENDED: 1540 Trina Frances, 36 y.o. female with diagnosis of right breast cancer is here for chemotherapy infusion of pertuzumab, trastuzumab, docetaxel and carboplatin. Patient went for scheduled US then returned for Onpro neulasta 6 mg, applied at 1530. PROTOCOL: no CYCLE: 2 DAY: 1 S: [...] EDT Office Visit Hematology [place] [id number] Shilpi Gallegos MD [facility] [address] [place] [address] documented as of this encounter Visit Diagnoses Diagnosis Invasive ductal carcinoma of right breast documented in this encounter Administered Medications Inactive Administered Medications - up to 3 most recent administrations Medication Order MAR Action Action Date Dose Rate Site CARBOplatin (PARAPLATIN) 665 mg in dextrose 5% 316.5 mL chemo infusion 665 mg (rounded from 665.4 mg, Target AUC = 6), Intravenous, ONCE, 1 dose, On Wed10/27/16 at 1000, Administer over 30 Minutes, Hold Parameters: CARBOplatin, Call provider for serum creatinine less than (mg/dL): .2, Call provider for serum creatinine greater than (mg/dL): 1.5 New Bag 10/27/2016 1:17 PM EDT 665 mg 633 mL/hr dexamethasone (DECADRON) injection 10 mg 10 mg, Intravenous, ONCE, 1 dose, On Wed10/27/16 at 0900, Administer 60 minutes prior to DOCEtaxel Given 10/27/2016 9:42 AM EDT 10 mg diphenhydrAMINE (BENADRYL) injection 25 mg 25 mg, Intravenous, ONCE, 1 dose, On Wed10/27/16 at 0900, Administer 60 minutes prior to DOCEtaxel, Routine Given 10/27/2016 9:46 AM EDT 25 mg DOCEtaxel (TAXOTERE) 112 mg in dextrose 5% Non-PVC 255.6 mL chemo infusion 112 mg (rounded from 111.75 mg = 75 mg/m2/dose ? 1.49 m2 Treatment Plan BSA from Recorded weight), Intravenous, ONCE, 1 dose, On Wed10/27/16 at 1000, Administer over 60 Minutes New Bag 10/27/2016 12:10 PM EDT 112 mg 255.6 mL/hr famotidine (PEPCID) injection 20 mg 20 mg, Intravenous, ONCE, 1 dose, On Wed10/27/16 at 0900, Administer 60 minutes prior to DOCEtaxel Given 10/27/2016 9:40 AM EDT 20 mg heparin, porcine 100 unit/mL flush 500 Units 500 Units, Intravenous, ONCE PRN, Starting on Wed10/27/16 at 0832, Until Wed10/28/16 at 0435, Line Care, Refer to Intravenous (IV) Procedure: Accessing Implanted Vascular Access Devices (537) procedure and/or Intravenous (IV) Job Aid: Adult Flushing & Catheter Care (5981) job aid for additional information regarding guidelines and administration., Routine Given 10/27/2016 2:02 PM EDT 500 Units loperamide (IMODIUM) capsule 4 mg 4 mg, Oral, ONCE, 1 dose, On Wed10/27/16 at 0900, Do not exceed 16 mg/day., Routine Given 10/27/2016 9:35 AM EDT 4 mg palonosetron (ALOXI) injection 0.25 mg 0.25 mg, Intravenous, ONCE, 1 dose, On Wed10/27/16 at 0900, Administer over 30 seconds., Routine Given 10/27/2016 9:38 AM EDT 0.25 mg pegfilgrastim (NEULASTA ONPRO) injection kit 6 mg, Subcutaneous, ONCE, 1 dose, On Wed10/27/16 at 1500, Allow the prefilled syringe co-packaged with the on-body injector to reach room temperature at least 30 minutes prior to administration., Routine Given 10/27/2016 3:30 PM EDT 6 mg Right Arm pertuzumab (PERJETA) 420 mg in sodium chloride 0.9% 264 mL chemo infusion 420 mg, Intravenous, ONCE, 1 dose, On Wed10/27/16 at 1000, Administer over 30 Minutes, This is a restricted medication. Is this being used for an FDA approved indication? Yes New Bag 10/27/2016 10:17 AM EDT 420 mg 528 mL/hr sodium chloride 0.9 % flush 5-20 mL 5-20 mL, Intravenous, EVERY 1 MIN PRN, Starting on Wed10/27/16 at 0832, Until Wed10/28/16 at 0435, Line Care, Flush pertains to all indwelling lines. Flush per protocol found in the job aid using the link provided on this medication record. Refer to Intravenous (IV) Job Aid: Adult Flushing & Catheter Care (2388) job aid for additional information regarding guidelines and administration., Routine Given 10/27/2016 2:02 PM EDT 20 mLs TRASTuzumab (HERCEPTIN) 310 mg in sodium chloride 0.9% 264.7619 mL infusion 310 mg (rounded from 309 mg = 6 mg/kg/dose ? 51.5 kg Treatment plan Recorded weight), Intravenous, ONCE, 1 dose, On Wed10/27/16 at 1000, Administer over 30 Minutes, Compatible with 0.9% sodium chloride ONLY New Bag 10/27/2016 11:29 AM EDT 310 mg 529.5 mL/hr documented in this encounter Care Teams Drone Operator Relationship Specialty Start Date End Date Radha Acuna MD [address] [place] [address] [place] [address] PCP - General 08/07/11 documented as of this encounter
--- OUTSIDE RECORDS SUMMARY | 2024-04-07 16:42 | XMS_ITS | Encounter Summary ---
Author Organization [facility] Address [facility] [place] [address] Care Team Providers Care Fireboat Operator Name Role Phone Radha Acuna MD Primary Care Provider +1- [phone] Encounter Details Date Type Department Care Team (Late st Contact Info) Description 11/17/2016 Notes Only Care Management [facility] [place] [phone] Destiney Diggs MSW Social History Tobacco Use [...] Progress Notes * Destiney Diggs MSW - 11/17/2016 4:00 PM EDT CCM met with pt and her in the infusion suite this morning. Pt was getting her third out ofsix cycles of TCH-P. 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 Trina feels her children are coping well with her diagnosis and she has decided to come to [place] for her chemotherapy as opposed to [facility]. I gave pt a [employer] hat which was donated to the cancer center. Pt was encouraged to contact me with any questions or concerns. P- CCM will continue to provide support and resources to pt. documented in this encounter Plan of Treatment Upcoming Encounters Date Type Department Care Team (Late st Contact Info) Description 06/30/2024 4:30 PM EDT Office Visit [place]ology [place] [address] Shilpi Gallegos MD [facility] DR [place] [address] documented as of this encounter Visit Diagnoses Not on filedocumented in this encounter Care Teams Fireboat Operator Relationship Specialty Start Date End Date Radha Acuna MD [address] [place] [address] [place] [address] PCP - General 08/07/11 documented as of this encounter
--- OUTSIDE RECORDS SUMMARY | 2024-04-07 16:42 | XMS_ITS | Encounter Summary ---
[place] [address] Care Team Providers Care Assistant Offset Press Operator Name Role Phone Radha Acuna MD Primary Care Provider +1- [phone] Encounter Details Date Type Department Care Team (Late st Contact Info) Description 11/02/2016 Telephone Hematology [place] [address] Radha Riggins, RN Social History [...] Telephone Encounter - Radha Riggins RN - 11/02/2016 1:26 PM EDT Message received: She has been having migraines one to two a day since . And on her left side of her chest it feels like fluttering and you can see it from the outside. Please call [phone] T/C TO Patient: she reports since she is having one to two migraines a day, they come withan aura that causes blurred vision. She usually takes 400mg motrin or aleve when she gets it and itgoes away. Denies dizziness, does have some nausea with migraines which is normal for her with the migraines. Has a history of migraines however usually only gets 1-2 per year and this has been 1- 2 per day since . Did not have a migraine this morning she did take motrin this morning to prevent it from happening as she was taking her son to camp. She also notes on the left side, Lower rib cage on the left she feels a flutter in her abdomen, like the feeling of having a baby move around in her belly however she knows she is not . This started the same time as the migraine Notices it multiple times per day, she has not had any fluttering feeling today, thinks it could possibly be gas pains. Denies vomiting, reports moving her bowels regularly. Plan: emotional support provided to patient, advised her to continue to monitor migraines and fluttering in her abdomen and call if they return or with any other symptoms. Encouraged her to increase fluid and food intake to see if this helps with migraines. Patient made aware of the above plan and intends to comply, she knows to call 24/ with questions or concerns. Discussed with Dr. Gibson, could be related to antiemetics, continue to monitor and call if they worsen or do not improve 24/ documented in this encounter Plan of Treatment Upcoming Encounters Date Type Department Care Team (Late st Contact Info) Description 06/30/2024 4:30 PM EDT Office Visit Hematology [place] [address] Shilpi Gallegos MD [facility] DR HEMATOLOGY [place] [address] documented as of this encounter Visit Diagnoses Not on filedocumented in this encounter Care Teams Assistant Offset Press Operator Relationship Specialty Start Date End Date Radha Acuna MD [address] [place] [address] [place] [address] PCP - General 08/07/11 documented as of this encounter
--- OUTSIDE RECORDS SUMMARY | 2024-04-07 16:42 | XMS_ITS | Encounter Summary ---
Author Organization [facility] [place] [address] Care Team Providers Care Range Rider Name Role Phone Radha Acuna MD Primary Care Provider +1- [phone] Encounter Details Date Type Department Care Team (Late st Contact Info) Description 10/19/2016 Telephone Hematology [place] [address] Myesha Urena Social History Tobacco [...] Telephone Encounter - Myesha Urena, RN - 10/19/2016 9:30 AM EDT ----- Message from Shilpi Gallegos MD sent at 10/19/2016 9:19 AM EDT ----- Regarding: FW: fever Please call pt to f/u on fever last week, thank you. ----- Message ----- From: Patricia Ni Sent: 10/15/2016 1:22 PM To: Shilpi Gallegos MD Subject: fever Hello, Patient called stating she went to the local ED because she had a fever and was found to have a UTI. She just wanted you to know. Thanks, Patricia RN spoke with patient who states she is taking an antibiotic (amoxicillin), she has been taking forfive days. Taking potassium pills as well. She denies any fevers and states her UTI symptoms are improving. She asked if she was going to have a pelvic ultrasound scheduled for 10/27. RN will notify Dr. Gallegos of the above. Instructed patient to call the clinic if she had any further questions or concerns. Pt in agreement with plan and knows to call clinic with any concerns and/or questions. documented in this encounter Plan of Treatment Upcoming Encounters Date Type Department Care Team (Late st Contact Info) Description 06/30/2024 4:30 PM EDT Office Visit Hematology [place] [address] Shilpi Gallegos MD [facility] DR HEMATOLOGY [place] [address] documented as of this encounter Visit Diagnoses Not on filedocumented in this encounter Care Teams Range Rider Relationship Specialty Start Date End Date Radha Acuna MD [address] [place] [address] [place] [address] PCP - General 08/07/11 documented as of this encounter
--- OUTSIDE RECORDS SUMMARY | 2024-04-07 16:42 | XMS_ITS | Encounter Summary ---
[place] [address] Care Team Providers Care Brushing Machine Operator Name Role Phone Radha Acuna MD Primary Care Provider +1- [phone] Encounter Details Date Type Department Care Team (Late st Contact Info) Description 10/01/2016 Notes Only Hematology [place] [address] Hannah Vega Social History Tobacco Use Types Packs/Day Years [...] as of this encounter Progress Notes * Hannah Vega - 10/01/2016 2:49 PM EDT This test result was discussed with the patient by phone. A copy of a letter sent to the patient containing these results is provided below. Please be advised that [place] law requires that allhealth care workers respect the confidentiality of this information and not pass it along to other health care providers, insurance companies, or individuals without the written permission of the patient. The [facility]amil[facility] Cancer Program welcomes any questions about these matters. Our phone number is: [phone]. On 09/22/16, Trina underwent genetic testing for a hereditary predisposition to breast cancer. Following are the results of this test. Result: The Breast and Stonemason Helper Panel analysis showed no mutation was detected. This means that Trina does not carry a mutation in the genes detectable by this test. The genes included on this panel are BRCA1, BRCA2, CDH1, PALB2, PTEN, STK11, TP53, CHEK2, YO, BARD1, BRIP1, NBN, NF1, RAD50, RAD51C, RAD51D, MLH1, MSH2, MSH6, PMS2, DICER1, SMARCA4 (sequencing and deletion/duplication) and EPCAM (deletion/duplication only). We are enclosing a printed copy of Trina's test results. Interpretation: Because the genetic basis, if any, of Trina's breast cancer has not been identified, this negative test result does not necessarily mean that Trina's cancer was sporadic (i.e. not attributable to an inherited predisposition). This is because of two important limitations of the test. First, not all inherited predisposition to cancer is attributable to the genes tested by this panel. Research has identified other genes that when mutated can increase one???s risk of cancer. Second, a small percentage of mutations in genes tested by this panel may be missed by current technology. Additional genetic testing for Trina or other family members is not recommended at this time. Screening Recommendations Based on genetic test results and personal and/or family history, we recommend: Ovarian cancer screening ?? We do not recommend any special screening studies in addition to an annual CONTROL PANEL OPERATOR exam at this time. Other cancer screening ?? Colonoscopy screening starting at age 50 ?? Annual dermatologic/skin exams documented in this encounter Plan of Treatment Upcoming Encounters Date Type Department Care Team (Late st Contact Info) Description 06/30/2024 4:30 PM EDT Office Visit Hematology [place] [address] Shilpi Gallegos MD [facility] HEMATOLOGY [place] [address] documented as of this encounter Visit Diagnoses Not on filedocumented in this encounter Care Teams Brushing Machine Operator Relationship Specialty Start Date End Date Radha Acuna MD [address] [place] [address] [place] [address] PCP - General 08/07/11 documented as of this encounter
--- OUTSIDE RECORDS SUMMARY | 2024-04-07 16:42 | XMS_ITS | Encounter Summary ---
Author Organization [facility] [place] [address] Care Team Providers Care Organizational Psychologist Name Role Phone Radha Acuna MD Primary Care Provider +1- [phone] Encounter Details Date Type Department Care Team (Late st Contact Info) Description 11/19/2016 Telephone Hematology [place] [address] Myesha Urena Social History Tobacco [...] Telephone Encounter - Myesha Urena, RN - 11/19/2016 9:53 AM EDT Request from provider: High risk for dehydration and other complications from chemo if she doesn't follow supportive care recommendations, please call her every few days to check in. 11/19: RN spoke with patient who states she feels not bad, feel weak and drained. She states aboutthe same as last cycles. No appetite, drinking ok. Denies fevers. States no diarrhea, no bm since Tue but does not feel constipated. No nausea. Trina has a few questions for Dr. Gallegos: Wondering how long does she need to wait after her last treatment to travel. Also wanted to let Dr. Gallegos know she's having hot flashes all the time, what can she do aboutit. RN discussed with Dr. Gallegos, patient just completed cycle 3 of 6, can discuss travel as she moves closer to her completion date. Greatly depends on how she tolerates treatment in the future. As far as hot flashes, these are to be expected and patient can decrease caffeine, chocolate, use fans, layer clothes, or if they become intolerable can consider medications for intervention. 11/23: RN spoke with patient who reports feeling extremely tired over the weekend. She states bettertoday. Normally she walks every day, now she doesn't have the endurance to do her normal walks. Shehas been walking around the yard with her children, but is really tired, she feels like her heart is pounding. No shortness of breath. Sometimes lightheaded when moving around. Yesterday she took a nap when she woke up she had intense sharp pain in her shoulder blade on right side, at the same timeher fingertips on her left hand went numb. After two to three minutes it became less intense and eventually went away. She denies fevers, no diarrhea, constipated last BM was this morning a normal one, taking colace. Yesterday had a bm then prior to that her last bowel movement was Wednesday. She states after her last cycle she had some fluttering in chest, which she says she was told couldbe gas. She states this has happened again. This time it was a few days after receiving treatment. Happened throughout the entire day. Lasted a few seconds each time she noticed it. Drinking well, no appetite but trying to eat. Having more nausea this cycle, she has compazine but wonders if there is a more mild antiemetic available. She has been drinking gingerale with little relief. RN discussed with Dr. Gallegos, who would like to see Trina this week to discuss her concerns and possibly give IV hydration. RN discussed with patient who is in agreement and is expecting a call from scheduling to arrange appointment. documented in this encounter Plan of Treatment Upcoming Encounters Date Type Department Care Team (Late st Contact Info) Description 06/30/2024 4:30 PM EDT Office Visit [place]ology [place] [address] [facility] DR HEMATOLOGY [place] [address] documented as of this encounter Visit Diagnoses Not on filedocumented in this encounter Care Teams Organizational Psychologist Relationship Specialty Start Date End Date Radha Acuna MD [address] [place] [address] [place] [address] PCP - General 08/07/11 documented as of this encounter
--- OUTSIDE RECORDS SUMMARY | 2024-04-07 16:42 | XMS_ITS | Encounter Summary ---
Author Organization [facility] [place] [address] Care Team Providers Care County Nurse Name Role Phone Radha Acuna MD Primary Care Provider +1- [phone] Encounter Details Date Type Department Care Team (Late st Contact Info) Description 10/19/2016 Orders Only Hematology [place] [phone] Shilpi Gallegos MD [facility] [place] [address] Abnormal PET scan of retroperitoneum Social History Tobacco Use Types Packs/Day Years [...] EDT Office Visit Hematology [place] [phone] Shilpi Gallegos MD [facility] DR [place] [address] documented as of this encounter Visit Diagnoses Diagnosis Abnormal PET scan of retroperitoneum Nonspecific abnormal results of other specified function study documented in this encounter Care Teams County Nurse Relationship Specialty Start Date End Date Radha Acuna MD [address] [place] [address] [place] [address] PCP - General 08/07/11 documented as of this encounter
--- OUTSIDE RECORDS SUMMARY | 2024-04-07 16:42 | XMS_ITS | Encounter Summary ---
Author Organization [facility] Address [facility] [place] [address] Care Team Providers Care Cable Television Installer Name Role Phone Radha Acuna MD Primary Care Provider +1- [phone] Reason for Visit * Treatment/Therapy Plan Authorization (Routine) - Closed Specialty Diagnoses / Procedures Referred By Clara cisneros Referred To Contact Hematology and Oncology Diagnoses Invasive ductal carcinoma of right breast Procedures INJECTION, PERTUZUMAB, 1 MG TC TRASTUZUMAB, 10MG, INJECTION (HERCEPTIN) TC DOCETAXEL, 1MG, INJECTION TC CARBOPLATIN, 50MG, INJECTION (PARAPLATIN) TC PEGFILGRASTIM, 6MG, INJECTION TC PALONOSETRON HCL, 25MCG, INJECTION (ALOXI) Shilpi Gallegos MD [facility] [place] [address] [address] Referral ID Status Reason Start Date Expiration Date Visits Re quested Visits Authorized [id number] Closed 10/02/2016 04/03/2017 99 99 Encounter Details Date Type Department Care Team (Latest Contact Info) Description 11/17/2016 7:00 AM EDT - 11/17/2016 7:06 AM EDT Hospital Encounter Hematology [place] [phone] Invasive ductal carcinoma of right breast Discharge [...] this encounter Progress Notes * Mary Anne Bowen RN - 11/17/2016 7:28 AM EDT Patient Name: Trina Frances Patient Age: 36 y.o. Birthdate: 1980 Admit date: 11/17/2016 Attending Physician: No att. providers found Access visit. See MAR and/or flowsheet. Labs drawn and sent documented in this encounter Plan of Treatment Upcoming Encounters Date Type Department Care Team (Late st Contact Info) Description 06/30/2024 4:30 PM EDT Office Visit Hematology [place] [address] Shilpi Gallegos MD [facility] [address] [place] [address] documented as of this encounter Procedures Procedure Name Priority Date/Time Associated Diagnosis Comments HEMOGRAM STAT 11/17/2016 7:25 AM EDT Invasive ductal carcinoma of right breast DIFFERENTIAL, AUTOMATED STAT 11/17/2016 7:25 AM EDT Invasive ductal carcinoma of right breast CBC (WITH DIFF) STAT 11/17/2016 7:25 AM EDT Invasive ductal carcinoma of right breast COMPREHENSIVE METABOLIC PANEL STAT 11/17/2016 7:25 AM EDT Invasive ductal carcinoma of right breast documented in this encounter Results * Differential, Automated (11/17/2016 7:25 AM EDT) Neutrophil % 52.6 % [facility] Neutrophil Absolute 1.80 1.70 - 6.10 x10(3)/[facility] Lymph % 35.4 % [facility] Lymphocytes Abs 1.2 0.9 - 3.2 x10(3)/[facility] Monocyte % 11.1 % [facility] Monocyte Abs 0.4 0.3 - 0.9 x10(3)/[facility] Eos % 0.0 % [facility] Eosinophils Abs 0.0 0.0 - 0.4 x10(3)/[facility] Basophil % 0.0 % [facility] Baso Absolute 0.0 0.0 - 0.1 x10(3)/[facility] Immature Gran % 0.90 % [facility] Comment: Immature granulocytes(IG's)percentage and absolute count will include metamyelocytes, myelocytes, and promyelocytes. Blood smears from CBCs yielding IG's will be scanned manually for concordance. If this scan disagrees with the automated IG or if promyelocytes are noted, a manual differential will be performed. Immature Gran Absolute 0.03 0.00 - 0.04 x10(3)/mcL [facility] Blood specimen (specimen) 11/17/2016 7:25 AM EDT 11/17/2016 7:32 AM EDT Narrative Resulting Agency Comment Spec In Lab Shilpi Gallegos MD HEMATOLOGY ORDERABL ES [facility] [place] [address] * (ABNORMAL) Hemogram (11/17/2016 7:25 AM EDT) White Blood Cell 3.4(L) 4.0 - 9.5 x10(3)/[facility] Red Blood Cell 2.69(L) 4.00 - 5.21 x10(6)/[facility] Hemoglobin 8.7(L) 11.7 - 15.5 gm/dL [facility] Hematocrit 24.3(L) 35.7 - 45.8 % [facility] Mean Cell Volume 90.3 82.6 - 94.4 [facility] Mean Cell Hemoglobin 32.3(H) 27.1 - 32.0 pg [facility] Mean Cell Hemoglobin Concentration 35.8(H) 31.7 - 35.0 gm/dL [facility] Platelet 95(L) 145 - 357 x10(3)/[facility] RDW Standard Deviation 38.1 37.0 - 46.0 [facility] RDW coefficient of variation 15.3(H) 11.5 - 14.1 % [facility] Mean Platelet Volume 10.2 7.6 - 12.9 [facility] NRBC% auto 0.0 % [facility] NRBC Absolute 0.000 0.000 - 0.000 x10(3)/[facility] Blood specimen (specimen) 11/17/2016 7:25 AM EDT 11/17/2016 7:32 AM EDT Narrative Resulting Agency Comment Spec In Lab Shilpi Gallegos MD HEMATOLOGY ORDERABL ES [facility] [place] [address] * (ABNORMAL) Comprehensive metabolic panel (non-fasting) (11/17/2016 7:25 AM EDT) Glucose 86 65 - 199 mg/dL [facility] Comment:Diabetes: >=200 mg/d L plus symptoms Blood Urea Nitrogen 10 8 - 18 mg/dL [facility] Creatinine 0.79 0.70 - 1.20 mg/dL [facility] Comment: Please note that the pediatric reference intervals supplied above were not validated at [facility]. Results from pediatric patients should be interpreted in conjunction to the patient's age, height and muscle mass. Sodium 141 135 - 145 mmol/L [facility] Potassium 3.4(L) 3.5 - 5.0 mmol/L [facility] Comment: Please note: ??Patients with WBC >100,000 may have falsely elevated Potassium levels. ??For accurate Potassium quantification in these patients send serum separator tube (gold top) for subsequent determinations. ??Contact the Clinical Chemistry Laboratory if there are any questions. Chloride 102 98 - 107 mmol/L [facility] Carbon Dioxide 26 22 - 31 mmol/L [facility] Anion Gap 13 5 - 15 mmol/L [facility] Calcium 9.3 8.5 - 10.5 mg/dL [facility] Protein, Total 6.7 6.1 - 8.0 gm/dL [facility] Albumin 4.0 3.2 - 5.2 gm/dL [facility] Aspartate Aminotransferase 27 0 - 30 unit/L [facility] Alanine Aminotransferase 24 0 - 30 unit/L [facility] Alkaline Phosphatase 69 40 - 104 unit/L [facility] Bilirubin, Total 0.2 0.2 - 1.3 mg/dL [facility] Est Glomerular Filtration Rate >60 >=60 [facility] Comment: This estimated GFR (eGFR) [...] the following links into your internet browser. [email or web address] Blood specimen (specimen) 11/17/2016 7:25 AM EDT 11/17/2016 7:32 AM EDT Narrative Resulting Agency Comment Spec In Lab Shilpi Gallegos MD CHEMISTRY ORDERABLE S [facility] [address] documented in this encounter Visit Diagnoses Diagnosis Invasive ductal carcinoma of right breast documented in this encounter Administered Medications Inactive Administered Medications - up to 3 most recent administrations Medication Order MAR Action Action Date Dose Rate Site sodium chloride 0.9 % flush 5-20 mL 5-20 mL, Intravenous, EVERY 1 MIN PRN, Starting on Wed11/17/16 at 0709, Until Wed11/18/16 at 0440, Line Care, Flush pertains to all indwelling lines. Flush per protocol found in the job aid using the link provided on this medication record. Refer to Intravenous (IV) Job Aid: Adult Flushing & Catheter Care (4126) job aid for additional information regarding guidelines and administration., Routine Given 11/17/2016 7:28 AM EDT 20 mLs documented in this encounter Care Teams Cable Television Installer Relationship Specialty Start Date End Date Radha Acuna MD [address] [place] [address] [place] [address] PCP - General 08/07/11 documented as of this encounter
--- OUTSIDE RECORDS SUMMARY | 2024-04-07 16:42 | XMS_ITS | Encounter Summary ---
[place] [address] Care Team Providers Care Painter Ordnance Name Role Phone Radha Acuna MD Primary Care Provider +1- [phone] Reason for Referral * Diagnostic Test (Routine) - Closed Specialty Diagnoses / Procedures Referred By Contgabriela cisneros Referred To Contact Radiology Diagnoses Malignant neoplasm of right female breast, unspecified site of breast Procedures IR Biopsy Lymph Node IR All Biopsy Procedures IR Biopsy Lymph Node Ruby Negro MD [facility] [place] [address] [facility] [place] [address] Referral ID Status Reason Start Date Expiration Date V isits Requested Visits Authorized [id number] Closed Specialty Service Requested 09/22/2016 09/22/2017 1 1 Encounter Details Date Type Department Care Team (Late st Contact Info) Description 09/22/2016 Orders Only [place] [id number] Ruby Negro MD Malignant neoplasm of right female breast, unspecified site of breast Social History Tobacco [...] EDT Office Visit Hematology [place] [address] Shilpi Gallegos MD [facility] DR [place] [address] documented as of this encounter Results * IR Biopsy Lymph Node (10/02/2016 3:57 PM EDT) Anatomical Region Laterality Modality X-Ray Angiograph y Impressions 10/05/2016 3:24 PM EDT Technically successful, uncomplicated RIGHT cervical neck lymph node FNA. I, Dr. gorman, performed the procedure. I have personally reviewed the image(s) and the residents interpretation and agree with the findings, IDRIS GORMAN at 10/05/2016 3:24 PM Narrative 10/05/2016 3:24 PM EDT EXAMINATION: IR BIOPSY LYMPH NODE CLINICAL HISTORY: breast cancer. suspicious right cervical neck lymph node on ultrasound and exam.; Exam/Procedure requested: US guided LN biopsy TECHNIQUE: Ultrasound guided cervical lymph node FNA. COMPARISON: Ultrasound of the neck dated 09/22/2016. FINDINGS: After extensive discussion with the patient regarding the risks (including bleeding, infection, and nondiagnostic biopsy) and benefits of procedure, verbal and written consent was obtained. Preprocedure ultrasound of the RIGHT cervical neck lymph node was performed. Timeout procedure was performed per protocol. Patient was prepped and draped in the standard sterile fashion. The RIGHT cervical neck lymph node was localized with ultrasound. The overlying skin and deeper soft tissues were anesthetized with 1% lidocaine. Four passes with 25 gauge fine needle aspirate needle was performed and submitted to the on-site pathology. Procedure Note Idris Gorman MD - 10/05/2016 EXAMINATION: IR BIOPSY LYMPH NODE CLINICAL HISTORY: breast cancer. suspicious right cervical neck lymph nodeon ultrasound and exam.; Exam/Procedure requested: US guided LN biopsy TECHNIQUE: Ultrasound guided cervical lymph node FNA. COMPARISON: Ultrasound of the neck dated 09/22/2016. FINDINGS: After extensive discussion with the patient regarding the risks(including bleeding, infection, and nondiagnostic biopsy) and benefits of procedure,verbal and written consent was obtained. Preprocedure ultrasound of the RIGHTcervical neck lymph node was performed. Timeout procedure was performed per protocol. Patient was prepped anddraped in the standard sterile fashion. The RIGHT cervical neck lymph node waslocalized with ultrasound. The overlying skin and deeper soft tissues wereanesthetized with 1% lidocaine. Four passes with 25 gauge fine needle aspirate needlewas performed and submitted to the on-site pathology. IMPRESSION Technically successful, uncomplicated RIGHT cervical neck lymph node FNA.I, Dr. gorman, performed the procedure. I have personally reviewed the image(s) and the residents interpretationand agree with the findings, IDRIS GORMAN at 10/05/2016 3:24 PM Ruby Daniel MD IMG IR ORDERABLE S documented in this encounter Visit Diagnoses Diagnosis Malignant neoplasm of right female breast, unspecified site of breast Malignant neoplasm of right female breast, unspecified site of breast documented in this encounter Care Teams Painter Ordnance Relationship Specialty Start Date End Date Radha Acuna MD [address] [place] [address] [place] [address] PCP - General 08/07/11 documented as of this encounter
--- OUTSIDE RECORDS SUMMARY | 2024-04-07 16:42 | XMS_ITS | Encounter Summary ---
Author Organization [facility] Address [facility] [place] [address] Care Team Providers Care Consultant Rn Name Role Phone Radha Acuna MD Primary Care Provider +1- [phone] Encounter Details Date Type Department Care Team (Latest Contact Info) Description 10/27/2016 2:23 PM EDT - 10/27/2016 11:59 PM EDT Hospital [place] [address] Mila Gallegos MD [facility] [place]AT[place]Y [place] [address] Abnormal positron emission tomography (PET) scan Discharge Disposition: Home Social History Tobacco Use [...] EDT Office Visit Hematology [place] [address] Mila Gallegos MD [facility] DR HEMATOLOGY [place] [address] documented as of this encounter Procedures Procedure Name Priority Date/Time Associated Diagnosis Comments US TRANSVAGINAL NON OB Routine 10/27/2016 3:03 PM EDT Abnormal positron emission tomography (PET) scan documented in this encounter Results * US Transvaginal Non [...] 03:57 pm) PATIENT INFO: ID #: ? [id number] ?: ??[birth year] (36 yrs) Name: ? TRINA BALL ? Visit Date: 10/27/2016 02:43 pm PERFORMED BY: Performed By: ? Pooja Malagon RDMS Attending: ?Milagros LEGER, Sonam Calix Resident: ? Jami LEGER, Alejo Germain Referred By: ?MILA GALLEGOS Location: ? [place] SERVICE(S) PROVIDED: ??UTV - Transvaginal - [id number] ?[id number] INDICATIONS: ??abnormal PET scan of uterus and [...] 10/27/2016 03:57 pm) PATIENT INFO: ID #: [id number] : [birth year] (36 yrs) Name: TRINA BALL Visit Date: 10/27/2016 02:43 pm PERFORMED BY: Performed By: Pooja Malagon RDMS Attending: Sonam Linares MD Resident: Alejo Farrell MD Referred By: MILA GALLEGOS Location: [place] SERVICE(S) PROVIDED: UTV - Transvaginal - [id number] INDICATIONS: abnormal PET scan of uterus and [...] Diagnosis Abnormal positron emission tomography (PET) scan documented in this encounter Care Teams Consultant Rn Relationship Specialty Start Date End Date Radha Acuna MD [address] [place] [address] [place] [address] PCP - General 08/07/11 documented as of this encounter
--- OUTSIDE RECORDS SUMMARY | 2024-04-07 16:42 | XMS_ITS | Encounter Summary ---
Author [facility] [place] [address] Care Team Providers Care Can Cleaner Name Role Phone Radha Acuna MD Primary Care Provider +1- [phone] Encounter Details Date Type Department Care Team (Late st Contact Info) Description 10/08/2016 Telephone Hematology [place] [address] Myesha Urena Social History Tobacco [...] Telephone Encounter - Myesha Urena, RN - 10/08/2016 9:28 AM EDT ----- Message from Mandie Juarez sent at 10/08/2016 8:29 AM EDT ----- Regarding: Her bones hurt Contact: Dr. Gallegos patient She had called yesterday, but now her bones hurt. Please call [phone] Thanks RN discussed with Dr. Gallegos, patient can try claritin and alternate Tylenol and Ibuprofen for bone discomfort. Regimen received: TCH-P with Neulasta Date of treatment: 10/05 RN discussed with patient who states since she had her Neulasta injections she's had terrible bone pain, all over. She states she feels like she's been hit by a truck. She also states she feels pretty tired and run down. She states temperature has been around 99. RN discussed with patient that she could try OTC Claritin for bone pain, she states she's already uses Zyrtec. RN advised patient to alternate Tylenol and Ibuprofen but check her temperature first and notify the clinic if her temperature is greater than 100.4, notify the clinic if her bone pain does not improve. Pt in agreement with plan and knows to call clinic with any concerns and/or questions. documented in this encounter Plan of Treatment Upcoming Encounters Date Type Department Care Team (Late st Contact Info) Description 06/30/2024 4:30 PM EDT Office Visit Hematology [place] [address] Shilpi Gallegos MD [facility] DR [place]AT[place] [address] documented as of this encounter Visit Diagnoses Not on filedocumented in this encounter Care Teams Can Cleaner Relationship Specialty Start Date End Date Radha Acuna MD [address] [place] [address] [place] [address] PCP - General 08/07/11 documented as of this encounter
--- OUTSIDE RECORDS SUMMARY | 2024-04-07 16:42 | XMS_ITS | Encounter Summary ---
[place] [address] Care Team Providers Care Vp Of Marketing Name Role Phone Radha Acuna MD Primary Care Provider +1- [phone] Reason for Visit * Reason Comments Schedule Office Case Encounter Details Date Type Department Care Team (Late st Contact Info) Description 10/05/2016 9:00 AM EDT Office Visit Hematology [place] [address] Marilyn Darling APRN Invasive ductal carcinoma of right breast Social [...] Sign Reading Time Taken Comments Blood Pressure 125/68 10/05/2016 8:54 AM EDT Pulse 64 10/05/2016 8:54 AM EDT Temperature 37 ??C (98.6 ??F) 10/05/2016 8:54 AM EDT Respiratory Rate 16 10/05/2016 8:54 AM EDT Oxygen Saturation 100% 10/05/2016 8:54 AM EDT Inhaled Oxygen Concentration - - Weight 51 kg (112 lb 6.4 oz) 10/05/2016 8:54 AM EDT Height 156 cm (5' 1.42) 10/05/2016 8:54 AM EDT Body Mass Index 20.95 10/05/2016 8:54 AM EDT documented in this encounter Progress Notes * Radha Riggins RN - 10/05/2016 9:00 AM EDT Neuro: A&O x 3 Resp: Denies SOB or chest pain Pain: Denies Diarrhea: Denies Constipation: Nausea: Denies Vomiting: Denies Coping: See Distress Tool Fatigue: reports energy level is ok Peripheral Neuropathy: Denies Diet: Reports eating and drinking well Medication Refills: Denies Advanced Directives: Working on these at home, has the paperwork Distress Scale Distress Score: 0 When Screening Completed: Before treatment Problem List Referrals Made Today: (None indicated) * Marilyn Darling APRN - 10/05/2016 9:00 AM EDT Subjective: Patient ID: Trina Ball is a 36 y.o. female. Cc: breast cancer Interval history: Trina is doing ok. She is understandably anxious to get things started, and to discuss the PET scan results done earlier today> she is waiting to hear about scheduling for another lymph node biopsy, and wants to know if she can have her first cycle of chemotherapy here at [facility] before transitioning to [facility]. 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 On 09/11/16, she underwent a mammogram followed [...] recommended a mastectomy. She is here today with her sister to discuss chemotherapy s/e and begin C1 of TCH-P. Review of Systems Constitutional: Negative. HENT: Negative. Eyes: Negative. Respiratory: Negative. Cardiovascular: Negative. Echo done at [facility],09/28/16 normalEF 65%, no wall motion abnormalities. Gastrointestinal: Negative. Endocrine: Negative. Genitourinary: Negative. Musculoskeletal: Negative. Skin: Positive for color change. Chronic vitiligo improved with home UV treatments. Allergic/Immunologic: Negative. Neurological: Negative. Psychiatric/Behavioral: Negative. BP 125/68 (Patient Position: Sitting) Pulse 64 Temp 37 ??C (98.6 ??F) (Temporal) Resp 16 Ht156 cm (5' 1.42) Wt 51 kg (112 lb 6.4 oz) LMP 09/16/2016 (Exact Date) SpO2 100% BMI 20.95 kg/m2 Wt Readings from Last 3 Encounters: 10/05/16 51 kg (112 lb 6.4 oz) 09/29/16 51.5 kg (113 lb 9.6 oz) 09/22/16 51.8 kg (114 lb 3.2 oz) Objective: Physical Exam Constitutional: She appears well-developed and well-nourished. No distress. HENT: Head: Normocephalic. Eyes: Conjunctivae are normal. Cardiovascular: Normal rate. Pulmonary/Chest: Effort normal. Abdominal: Soft. Musculoskeletal: Normal range of motion. Neurological: She is alert. Skin: Skin is warm and dry. She is not diaphoretic. Psychiatric: She has a normal mood and affect. Her behavior is normal. Judgment and thought contentnormal. Nursing note and vitals reviewed. PET scan viewed independently by me and discussed with Trina and her , no evidence of distant disease, or hypermetabolic nodes in neck. Results for TRINA BALL ( ) as of 10/05/2016 12:03 Ref. Range 09/16/2016 07:05 WBC Latest Ref Range: 4.0 - 9.5 x10(3)/mcL 6.2 RBC Latest Ref Range: 4.00 - 5.21 x10(6)/mcL 4.57 Hemoglobin Latest Ref Range: 11.7 - 15.5 gm/dL 14.0 Hematocrit Latest Ref Range: 35.7 - 45.8 % 40.5 MCV Latest Ref Range: 82.6 - 94.4 fL 88.6 MCH Latest Ref Range: 27.1 - 32.0 pg 30.6 MCHC Latest Ref Range: 31.7 - 35.0 gm/dL 34.6 RDWSD Latest Ref Range: 37.0 - 46.0 fL 37.6 RDWCV Latest Ref Range: 11.5 - 14.1 % 11.7 Platelets Latest Ref Range: 145 - 357 x10(3)/mcL 218 MPV Latest Ref Range: 7.6 - 12.9 fL 10.3 nRBC % Auto Latest Units: % 0.0 nRBC Abs Auto Latest Ref Range: 0.000 - 0.000 x10(3)/mcL 0.000 Neutr Abs (ANC) Latest Ref Range: 1.70 - 6.10 x10(3)/mcL 3.87 Neutrophils % Latest Units: % 61.9 Immature Gran % Latest Units: % 0.50 Lymphocytes % Latest Units: % 28.5 Monocytes % Latest Units: % 7.5 Eosinophils % Latest Units: % 1.6 Basophils % Latest Units: % 0.0 Dalia Gran Abs Latest Ref Range: 0.00 - 0.04 x10(3)/mcL 0.03 Lymphocytes Abs Latest Ref Range: 0.9 - 3.2 x10(3)/mcL 1.8 Monocyte Abs Latest Ref Range: 0.3 - 0.9 x10(3)/mcL 0.5 Eosinophils Abs Latest Ref Range: 0.0 - 0.4 x10(3)/mcL 0.1 Basophils Abs Latest Ref Range: 0.0 - 0.1 x10(3)/mcL 0.0 Sodium Latest Ref Range: 135 - 145 mmol/L 141 Potassium Latest Ref Range: 3.5 - 5.0 mmol/L 3.6 Chloride Latest Ref Range: 98 - 107 mmol/L 101 CO2 Latest Ref Range: 22 - 31 mmol/L 25 Anion Gap Latest Ref Range: 5 - 15 mmol/L 15 BUN Latest Ref Range: 8 - 18 mg/dL 13 Creatinine Latest Ref Range: 0.70 - 1.20 mg/dL 0.75 Estimated GFR Latest Ref Range: >=60 >60 Glucose Lvl Latest Ref Range: 65 - 199 mg/dL 94 Calcium Latest Ref Range: 8.5 - 10.5 mg/dL 9.8 Total Protein Latest Ref Range: 6.1 - 8.0 gm/dL 7.9 Albumin Latest Ref Range: 3.2 - 5.2 gm/dL 4.9 Total Bilirubin Latest Ref Range: 0.2 - 1.3 mg/dL 0.5 Bili, Direct Latest Ref Range: 0.0 - 0.3 mg/dL 0.1 Alk Phos Latest Ref Range: 40 - 104 unit/L 64 AST Latest Ref Range: 0 - 30 unit/L 22 ALT Latest Ref Range: 0 - 30 unit/L 13 Assessment and Plan: #1 Breast cancer--likely clinical stage I HER2+ disease. Primary tumor from 1-7 cm based on imaging. Nodes negative. PET negative. Will proceed with additional neck node biopsy perDr. Negro and plan to start chemo here next week, then transition to [facility]. She has an appt with Dr. Nogueira on October 20. She is quite clear that she wants Dr. Gallegos to be in charge of her chemotherapy plan and I reassured her that this would be fine. #2 Chemotherapy--starting today. Reviewed with patient general side effects of chemotherapy, explaining that not all S/E would occur but that it is important for us to discuss all possible effects inorder for patient to make informed decision. Fatigue, risk of N/V, risk of alopecia, risk of neuropathy, risk of allergic rxn, and possiblity of life threatening infection in the face of low blood counts. Emphasized importance of calling for fever greater than 100.4. Recommended to flush toilet x2 for 48hrs after chemo administration and refrain from intercourse or use condom for 72hrs after chemo administration. Discussed strategies for S/E management and gave written information to reinforce d iscussion. Compazine faxed to patient's pharmacy. #3 Fatigue--Common with treatment, can be prevented with regular exercise, healthy diet, plenty of rest. #4 Menopausal symptoms--pre-menopausal. #5 Bone health--low risk for osteoporosis, will address prior to starting endocrine therapy, as shewill likely be recommended to have ovarian suppression + AI. #6 Medication management --compazine provided prior to starting chemotherapy for use at home #7 Vitiligo: Home UV treatments for vitiligo can be continued of needed, but skin may become more sensitive to treatment and/or auto-immune conditions often improve during chemotherapy. Will monitor. Marilyn Darling, MSN, LABORATORY MECHANICAL TECHNICIAN, AOCN [facility]/[address] [place] [address] documented in this encounter Plan of Treatment Upcoming Encounters Date Type Department Care Team (Late st Contact Info) Description 06/30/2024 4:30 PM EDT Office Visit Hematology [place] [address] Shilpi Gallegos MD [facility] [address] [place] [address] documented as of this encounter Visit Diagnoses Diagnosis Invasive ductal carcinoma of right breast documented in this encounter Care Teams Vp Of Marketing Relationship Specialty Start Date End Date Radha Acuna MD [address] [place] [address] [place] [address] PCP - General 08/07/11 documented as of this encounter
--- OUTSIDE RECORDS SUMMARY | 2024-04-07 16:42 | XMS_ITS | Encounter Summary ---
Author Organization [facility] [place] [address] Care Team Providers Care Renal Social Worker Name Role Phone Radha Acuna MD Primary Care Provider +1- [phone] Reason for Visit * Reason Comments Follow-up Encounter Details Date Type Department Care Team (Late st Contact Info) Description 09/29/2016 1:30 PM EDT Office Visit Hematology [place] [address] Shilpi Gallegos MD [facility] [address] [place] [address] Invasive ductal carcinoma of right breast Social [...] Sign Reading Time Taken Comments Blood Pressure 100/61 09/29/2016 1:29 PM EDT Pulse 60 09/29/2016 1:29 PM EDT Temperature 36.6 ??C (97.9 ??F) 09/29/2016 1:29 PM ED T Respiratory Rate 18 09/29/2016 1:29 PM EDT Oxygen Saturation 97% 09/29/2016 1:29 PM EDT Inhaled Oxygen Concentration - - Weight 51.5 kg (113 lb 9.6 oz) 09/29/2016 1:29 P M EDT Height 156 cm (5' 1.42) 09/29/2016 1:29 PM EDT Body Mass Index 21.17 09/29/2016 1:29 PM EDT documented in this encounter Progress Notes * Shilpi Gallegos MD - 09/29/2016 1:30 PM EDT Subjective: Patient ID: Trina Frances [...] her first cycle of chemotherapy here at [facility] before transitioning to [facility]. 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. On 09/11/16, she underwent a mammogram followed [...] She is here today to discuss chemotherapy. Review of Systems Constitutional: Negative. HENT: Negative. Eyes: Negative. Respiratory: Negative. Cardiovascular: Negative. Echo done at [facility],09/28/16 normalEF 65%, no wall motion abnormalities. Gastrointestinal: Negative. Endocrine: Negative. Genitourinary: Negative. Musculoskeletal: Negative. Skin: Positive for color change. Chronic vitiligo improved with home UV treatments. Allergic/Immunologic: Negative. Neurological: Negative. Psychiatric/Behavioral: Negative. Objective: Physical Exam Constitutional: She appears well-developed [...] distant disease, or hypermetabolic nodes in neck. FINDINGS: ?? HEAD/NECK: Normal variant brown fat activity in the bilateral supraclavicular regions. CT visualized partially imaged air-fluid level is noted in a hypoplastic appearing left maxillary sinus. ?? CHEST: Two hypermetabolic lesions in the medial [...] a small subcentimeter lymph node on CT. ?? Normal activity in all remaining soft tissue regions. A left-sided Mediport with tip terminating in the right atrium. ?? ABDOMEN/PELVIS: Hypermetabolic 5 mm in short axis distal right external iliac lymph node (axial images [id number]). Activity seen within the endometrium is likely physiologic. Focus of activity in the posterior right hemipelvis (axial image 164) may represent functioning ovarian tissue. ?? Incidental CT visualized findings: punctate nonobstructing right renal calculus and suture material along the cecum consistent with history of prior appendectomy. ?? SKELETON/EXTREMITIES: Normal marrow activity in all regions of the axial and visualized appendicular skeleton. Indeterminate CT visualized tiny sclerotic foci in the left femoral head and posterior left acetabulum. ?? IMPRESSION 1. Two FDG avid medial right [...] likely below the sensitivity of PET. ?? Thank you for referring this patient to [facility]. ?? I have personally reviewed the image(s) and the residents interpretation and agree with the findings, Sonam Linares at 09/29/2016 6:08 PM Assessment and Plan: No problem-specific Assessment & Plan notes found for this encounter. #1 Breast cancer--likely clinical stage I HER2+ disease. Primary tumor from 1-7 cm based on imaging. Nodes negative. PET negative. Will proceed with additional neck node biopsy perDr. Negro and plan to start chemo here next week, then transition to [facility]. She has an appt with Dr. Nogueira on October 20. #2 Chemotherapy--monitoring for toxicity--discussed in detail, she will be starting TCH-P for 6 cycles next week. Most common side effects are diarrhea, fatigue, rash and neutropenia. She will be getting a chemo-teach visit with Marilyn Darling on 10/05 as well. #3 Fatigue--Common with treatment, can be prevented with regular exercise, healthy diet, plenty of rest. #4 Menopausal symptoms--pre-menopausal. #5 Bone health--low risk for osteoporosis, will address prior to starting endocrine therapy, as shewill likely be recommended to have ovarian suppression + AI. #6 Medication management --supportive care prescriptions will be provided prior to starting chemotherapy. #7 Vitiligo: Home UV treatments for vitiligo can be continued of needed, but skin may become more sensitive to treatment and/or auto-immune conditions often improve during chemotherapy. Will monitor. Time: 20 minutes of this 30 minute visit was spent in counseling patient on treatment options and assessment and plan. [id number] visit 30 min History and Physical: 10 min. Discussion pts of counseling: as outlined above. Plan: biopsy as planned on 10/02 F/u 10/05 for cycle 1 TCH-P documented in this encounter Plan of Treatment Upcoming Encounters Date Type Department Care Team (Late st Contact Info) Description 06/30/2024 4:30 PM EDT Office Visit Hematology [place] [address] Shilpi Gallegos MD [facility] DR HEMATOLOGY [place] [address] documented as of this encounter Visit Diagnoses Diagnosis Invasive ductal carcinoma of right breast documented in this encounter Care Teams Renal Social Worker Relationship Specialty Start Date End Date Radha Acuna MD [address] [place] [address] [place] [address] PCP - General 08/07/11 documented as of this encounter
--- OUTSIDE RECORDS SUMMARY | 2024-04-07 16:42 | XMS_ITS | Encounter Summary ---
Author Organization [facility] [place] [address] Care Team Providers Care Parking Analyst Name Role Phone Radha Acuna MD Primary Care Provider +1- [phone] Reason for Visit * Reason Comments Genetic Evaluation breast cancer * Consultation (Routine) - Closed Specialty Diagnoses / Procedures Referred By Clara cisneros Referred To Contact Hematology and Oncology Diagnoses Malignant neoplasm of upper-inner quadrant of right female breast Ruby Negro MD [facility] [place] [address] [facility] [address] [place] [address] Referral ID Status Reason Start Date Expiration Date V isits Requested Visits Authorized [id number] Closed Consult, Test & Treat 09/16/2016 09/16/2017 1 1 Encounter Details Date Type Department Care Team (Late st Contact Info) Description 09/22/2016 11:00 AM EDT Office Visit Hematology [place] [address] Hannah Vega Malignant neoplasm of female breast, unspecified laterality, unspecified site of breast Social History Tobacco [...] encounter Progress Notes * Hannah Vega - 09/22/2016 11:00 AM EDT Ms. Frances was seen by Hannah Vega MS, [place] [facility] at the request of Ruby Negro MD, to advise regarding possible heritable predisposition to cancer. I spent 25 minutes of this face to face encounter with the patient gathering medical and family history and discussing the likelihood of a genetic predisposition to cancer and the option of genetic testing. Reason for referral/Chief complaint Personal history of breast cancer. Medical history Cancer hx and treatment: Recently diagnosed with hormone receptor positive breast cancer. Making surgical decisions now. Family History of Cancer: Unremarkable Ethnic background is , non-[place]. Genetic risk assessment Panel genetic testing for an inherited predisposition to breast and ovarian cancer was discussed. The risks, benefits and limitations of panel genetic testing were reviewed. Trina opted for testing with the STAT Breast Panel, a next generation sequencing panel that simultaneously analyzes 9 genes, including BRCA1 and BRCA2, that contribute to increased risk for breast cancer. If this is normal, we will reflex to a larger panel of genes associated with breast and ovarian cancer. Trina opted for testing and was consented. Her blood sample was drawn today and sent to [facility]. STAT testing will take approximately 8-10 days and reflex full panel testing can take an additional1-3 weeks. Trina will be contacted via telephone as her test results become available. If positive, we will schedule an in person follow-up appointment. At that time, we will discuss with Trina the implications that this test result may have for her, as well as her family members. We will also provide Trina with screening guidelines for cancer prevention and early detection, as well as answer any questions she may have. Screening Recommendations We will readdress the issue of screening upon the receipt of Trina???s genetic test result. documented in this encounter Plan of Treatment Upcoming Encounters Date Type Department Care Team (Late st Contact Info) Description 06/30/2024 4:30 PM EDT Office Visit Hematology [place] [address] Shilpi Gallegos MD [facility] [place] [address] documented as of this encounter Visit Diagnoses Diagnosis Malignant neoplasm of female breast, unspecified laterality, unspecified site of breast documented in this encounter Care Teams Parking Analyst Relationship Specialty Start Date End Date Radha Acuna MD [address] [place] [address] [place] [address] PCP - General 08/07/11 documented as of this encounter
--- OUTSIDE RECORDS SUMMARY | 2024-04-07 16:42 | XMS_ITS | Encounter Summary ---
Author Organization [facility] Address [facility] [place] [address] Care Team Providers Care Area Supervisor Name Role Phone Radha Acuna MD Primary Care Provider +1- [phone] Reason for Visit * Reason Comments Chemotherapy [...] HCL, 25MCG, INJECTION (ALOXI) Shilpi Gallegos MD [facility] DR HEMATOLOGY [place] [address] [address] Referral ID Status Reason Start Date Expiration Date Visits Re quested Visits Authorized [id number] Closed 10/02/2016 04/03/2017 99 99 Encounter Details Date Type Department Care Team (Latest Contact Info) Description 10/05/2016 8:33 AM EDT - 10/05/2016 11:59 PM EDT Hospital Encounter Hematology [place] [address] Invasive ductal carcinoma of right [...] of calcium and 1600iu of Vit D prochlorperazine (COMPAZINE) 10 mg Tablet Take 1 tablet by mouth every 6 hours as needed for Nausea for up to 21 days. 30 tablet 2 10/05/2016 10/26/2016 fluconazole (DIFLUCAN) 100 mg Tablet Take 100 [...] Notes * Mary Anne Bowen RN - 10/05/2016 5:57 PM EDT Patient Name: Trina Frances Patient Age: 36 y.o. Birthdate: 1980 Admit date: 10/05/2016 Attending Physician: No att. providers found Trina Frances, 36 y.o. female with diagnosis of Breast cancer is here for chemotherapy infusion ofPerjeta,Herceptin,Docetaxel,carboplatin and On pro injector to right arm PROTOCOL: no CYCLE: 1 DAY: 1 S: Pt. offers no complaints at this time. O: Chemotherapy orders independently verified for correct drug name, route and dosage per patient'sheight, weight and BSA by Gem Bowen RN and onsite pharmacist REACTIONS (DESCRIPTION, TIME, INTERVENTION AND EFFECTIVENESS) none A: Pt. Tolerated treatment well. Trina Frances confirms that all questions and issues have been addressed. P: Return to clinic per schedule documented in this encounter Plan of Treatment Upcoming Encounters Date Type Department Care Team (Late st Contact Info) Description 06/30/2024 4:30 PM EDT Office Visit Hematology [place] [address] Shilpi Gallegos MD [facility] DR HEMATOLOGY [place] [address] documented as of this encounter Visit Diagnoses [...] = 6), Intravenous, ONCE, 1 dose, On Wed10/05/16 at 1030, Administer over 30 Minutes, Hold Parameters: CARBOplatin, Call provider for serum creatinine less than (mg/dL): .2, Call provider for serum creatinine greater than (mg/dL): 1.5 New Bag 10/05/2016 4:57 PM EDT 665 mg 633 mL/hr dexamethasone (DECADRON) injection 10 mg 10 mg, Intravenous, ONCE, 1 dose, On Wed10/05/16 at 0930, Administer 60 minutes prior to DOCEtaxel Given 10/05/2016 11:20 AM EDT 10 mg diphenhydrAMINE (BENADRYL) injection 25 mg 25 mg, Intravenous, ONCE, 1 dose, On Wed10/05/16 at 0930, Administer 60 minutes prior to DOCEtaxel, Routine Given 10/05/2016 11:25 AM EDT 25 mg DOCEtaxel (TAXOTERE) 112 mg in dextrose 5% Non-PVC 255.6 mL chemo infusion 112 mg (rounded from 111.75 mg = 75 mg/m2/dose ? 1.49 m2 Treatment Plan BSA from Recorded weight), Intravenous, ONCE, 1 dose, On Wed10/05/16 at 1030, Administer over 60 Minutes New Bag 10/05/2016 3:44 PM EDT 112 mg 255.6 mL/hr famotidine (PEPCID) injection 20 mg 20 mg, Intravenous, ONCE, 1 dose, On Wed10/05/16 at 0930, Administer 60 minutes prior to DOCEtaxel Given 10/05/2016 11:13 AM EDT 20 mg loperamide (IMODIUM) capsule 4 mg 4 mg, Oral, ONCE, 1 dose, On Wed10/05/16 at 0930, Do not exceed 16 mg/day., Routine Given 10/05/2016 11:12 AM EDT 4 mg palonosetron (ALOXI) injection 0.25 mg 0.25 mg, Intravenous, ONCE, 1 dose, On Wed10/05/16 at 0930, Administer over 30 seconds., Routine Given 10/05/2016 11:16 AM EDT 0.25 mg pegfilgrastim (NEULASTA ONPRO) injection kit 6 mg, Subcutaneous, ONCE, 1 dose, On Wed10/05/16 at 0930, Allow the prefilled syringe co-packaged with the on-body injector to reach room temperature at least 30 minutes prior to administration., Routine Given 10/05/2016 5:33 PM EDT 6 mg Right Arm pertuzumab (PERJETA) 840 mg in sodium chloride 0.9% 278 mL chemo infusion 840 mg, Intravenous, ONCE, 1 dose, On Wed10/05/16 at 1030, Administer over 60 Minutes, This is a restricted medication. Is this being used for an FDA approved indication? Yes New Bag 10/05/2016 11:55 AM EDT 840 mg 278 mL/hr TRASTuzumab (HERCEPTIN) 410 mg in sodium chloride 0.9% 269.5238 mL infusion 410 mg (rounded from 412 mg = 8 mg/kg/dose ? 51.5 kg Treatment plan Recorded weight), Intravenous, ONCE, 1 dose, On Wed10/05/16 at 1030, Administer over 90 Minutes, Compatible with 0.9% sodium chloride ONLY New Bag 10/05/2016 2:08 PM EDT 410 mg 179.7 mL/hr documented in this encounter Care Teams Area Supervisor Relationship Specialty Start Date End Date Radha Acuna MD [address] [place] [address] [place] [address] PCP - General 08/07/11 documented as of this encounter
--- OUTSIDE RECORDS SUMMARY | 2024-04-07 16:42 | XMS_ITS | Encounter Summary ---
Author Organization [facility] [place] [address] Care Team Providers Care Mining And Quarrying Machinery Repairer Name Role Phone Radha Acuna MD Primary Care Provider +1- [phone] Reason for Visit * Treatment/Therapy Plan Authorization [...] [facility] [place] [address] [address] Referral ID Status Reason Start Date Expiration Date Visits Re quested Visits Authorized [id number] Closed 10/02/2016 04/03/2017 99 99 Encounter Details Date Type Department Care Team (Latest Contact Info) Description 10/27/2016 7:30 AM EDT Hospital Encounter Hematology [place] [address] Invasive ductal carcinoma of right [...] Progress Notes * Susan Alvares RN - 10/27/2016 7:49 AM EDT Patient Name: Trina Frances Patient Age: 36 y.o. Birthdate: 1980 Admit date: 10/27/2016 Attending Physician: No att. providers found Access visit. See MAR and/or flowsheet. documented in this encounter Plan of Treatment Upcoming Encounters Date Type Department Care Team (Late st Contact Info) Description 06/30/2024 4:30 PM EDT Office Visit Hematology [place] [address] Shilpi Gallegos MD [facility] HEMATOLOGY [place] [address] documented as of this encounter Procedures Procedure Name Priority Date/Time Associated Diagnosis Comments HEMOGRAM STAT 10/27/2016 7:47 AM EDT Invasive ductal carcinoma of right breast DIFFERENTIAL, AUTOMATED STAT 10/27/2016 7:47 AM EDT Invasive ductal carcinoma of right breast CBC (WITH DIFF) STAT 10/27/2016 7:47 AM EDT Invasive ductal carcinoma of right breast COMPREHENSIVE METABOLIC PANEL STAT 10/27/2016 7:47 AM EDT Invasive ductal carcinoma of right breast documented in this encounter Results * Differential, Automated (10/27/2016 7:47 AM EDT) Neutrophil % 55.2 % [facility] Neutrophil Absolute 2.63 1.70 - 6.10 x10(3)/[facility] Lymph % 30.5 % [facility] Lymphocytes Abs 1.4 0.9 - 3.2 x10(3)/[facility] Monocyte % 13.7 % [facility] Monocyte Abs 0.6 0.3 - 0.9 x10(3)/[facility] Eos % 0.2 % [facility] Eosinophils Abs 0.0 0.0 - 0.4 x10(3)/[facility] Basophil % 0.0 % [facility] Baso Absolute 0.0 0.0 - 0.1 x10(3)/[facility] Immature Gran % 0.40 % [facility] Comment: Immature granulocytes(IG's)percentage and absolute count will include metamyelocytes, myelocytes, and promyelocytes. Blood smears from CBCs yielding IG's will be scanned manually for concordance. If this scan disagrees with the automated IG or if promyelocytes are noted, a manual differential will be performed. Immature Gran Absolute 0.02 0.00 - 0.04 x10(3)/[facility] Blood specimen (specimen) 10/27/2016 7:47 AM EDT 10/27/2016 7:51 AM EDT Narrative Resulting Agency Comment Spec In Lab Shilpi Gallegos MD HEMATOLOGY ORDERABL ES [facility] [place] [address] * (ABNORMAL) Hemogram (10/27/2016 7:47 AM EDT) White Blood Cell 4.8 4.0 - 9.5 x10(3)/[facility] Red Blood Cell 3.27(L) 4.00 - 5.21 x10(6)/[facility] Hemoglobin 10.1(L) 11.7 - 15.5 gm/dL [facility] Hematocrit 29.3(L) 35.7 - 45.8 % [facility] Mean Cell Volume 89.6 82.6 - 94.4 fL [facility] Mean Cell Hemoglobin 30.9 27.1 - 32.0 pg [facility] Mean Cell Hemoglobin Concentration 34.5 31.7 - 35.0 gm/dL [facility] Platelet 209 145 - 357 x10(3)/[facility] RDW Standard Deviation 37.4 37.0 - 46.0 [facility] RDW coefficient of variation 12.1 11.5 - 14.1 % [facility] Mean Platelet Volume 9.2 7.6 - 12.9 [facility] NRBC% auto 0.0 % [facility] NRBC Absolute 0.000 0.000 - 0.000 x10(3)/[facility] Blood specimen (specimen) 10/27/2016 7:47 AM EDT 10/27/2016 7:51 AM EDT Narrative Resulting Agency Comment Spec In Lab Shilpi Gallegos MD HEMATOLOGY ORDERABL ES [facility] [place] [address] * Comprehensive metabolic panel (non-fasting) (10/27/2016 7:47 AM EDT) Glucose 82 65 - 199 mg/dL [facility] Comment:Diabetes: >=200 mg/d L plus symptoms Blood Urea Nitrogen 15 8 - 18 mg/dL [facility] Creatinine 0.88 0.70 - 1.20 mg/dL [facility] Comment: Please note that the pediatric reference intervals supplied above were not validated at [facility]. Results from pediatric patients should be interpreted in conjunction to the patient's age, height and muscle mass. Sodium 140 135 - 145 mmol/L [facility] Potassium 3.7 3.5 - 5.0 mmol/L [facility] Comment: Please note: ??Patients with WBC >100,000 may have falsely elevated Potassium levels. ??For accurate Potassium quantification in these patients send serum separator tube (gold top) for subsequent determinations. ??Contact the Clinical Chemistry Laboratory if there are any questions. Chloride 102 98 - 107 mmol/L [facility] Carbon Dioxide 26 22 - 31 mmol/L [facility] Anion Gap 12 5 - 15 mmol/L [facility] Calcium 9.4 8.5 - 10.5 mg/dL [facility] Protein, Total 6.7 6.1 - 8.0 gm/dL [facility] Albumin 4.3 3.2 - 5.2 gm/dL [facility] Aspartate Aminotransferase 27 0 - 30 unit/L [facility] Alanine Aminotransferase 24 0 - 30 unit/L [facility] Alkaline Phosphatase 59 40 - 104 unit/L [facility] Bilirubin, Total 0.3 0.2 - 1.3 mg/dL [facility] Est Glomerular Filtration Rate >60 >=60 [facility] Comment: This estimated GFR (eGFR) [...] the following links into your internet browser. [email or web address] Blood specimen (specimen) 10/27/2016 7:47 AM EDT 10/27/2016 7:51 AM EDT Narrative Resulting Agency Comment Spec In Lab Shilpi Gallegos MD CHEMISTRY ORDERABLE S [facility] [place] [address] documented in this encounter Visit Diagnoses Diagnosis Invasive ductal carcinoma of right breast documented in this encounter Administered Medications Inactive Administered Medications - up to 3 most recent administrations Medication Order MAR Action Action Date Dose Rate Site sodium chloride 0.9 % flush 5-20 mL 5-20 mL, Intravenous, EVERY 1 MIN PRN, Starting on Wed10/27/16 at 0732, Until Wed10/28/16 at 0435, Line Care, Flush pertains to all indwelling lines. Flush per protocol found in the job aid using the link provided on this medication record. Refer to Intravenous (IV) Job Aid: Adult Flushing & Catheter Care (6829) job aid for additional information regarding guidelines and administration., Routine Given 10/27/2016 7:47 AM EDT 20 mLs documented in this encounter Care Teams Mining And Quarrying Machinery Repairer Relationship Specialty Start Date End Date Radha Acuna MD [address] [place] [address] [place] [address] PCP - General 08/07/11 documented as of this encounter
--- OUTSIDE RECORDS SUMMARY | 2024-04-07 16:42 | XMS_ITS | Encounter Summary ---
Author Organization [facility] [place] [address] Care Team Providers Care Dicer Operator Name Role Phone Radha Acuna MD Primary Care Provider +1- [phone] Reason for Visit * Diagnostic Test (Routine) - Closed Specialty Diagnoses / Procedures Referred By Clara cisneros Referred To Contact Radiology Diagnoses Breast cancer P RONN 03107/LJ 114 LBS / XANAX / STRICT DIET RESTRICTIONS DUE TO MEDIPORT PLACEMENT/ MEDIPORT WILL BE ACCESSED BEFORE PET SCAN & WILL NEED TO BE DE-ACCESSED AFTER SCAN-BC CONFIRMED-LEXI Procedures PET CT STANDARD SKULL BASE TO MID-THIGH NM PCTM GLUCOSE/INJECT Shilpi Gallegos MD [facility] HEMATOLOGY [place] [address] [place] [address] Referral ID Status Reason Start Date Expiration Date Visits Re quested Visits Authorized [id number] Closed 09/29/2016 09/29/2017 2 2 Encounter Details Date Type Department Care Team (Latest Contact Info) Description 09/29/2016 11:19 AM EDT - 09/29/2016 11:59 PM EDT Hospital Encounter [place] [address] Shilpi Gallegos MD [facility] DR HEMATOLOGY [place] [address] Discharge Disposition: Home Social History [...] EDT Office Visit Hematology [place] [address] Shilpi Gallegos MD [facility] [place] [address] documented as of this encounter Procedures Procedure Name Priority Date/Time Associated Diagnosis Comments NM PET CT SKULL BASE TO MID-THIGH ([facility]) Routine 09/29/2016 12:30 PM EDT POCT GLUCOSE Routine 09/29/2016 10:59 AM EDT documented in this encounter Results * (ABNORMAL) POCT Glucose (09/29/2016 10:59 AM EDT) Glucose, POC 64(L) 65 - 199 mg/dL [facility] Comment: Supplemental ranges: <140 mg/dL before meals <180 mg/dL all other times of the day Blood specimen (specimen) 09/29/2016 10:59 AM EDT 09/29/2016 10:59 AM EDT Shilpi Gallegos MD POINT OF CARE TEST ORDERABLES [facility] [place] [address] documented in this encounter Visit Diagnoses Not on filedocumented in this encounter Administered Medications Inactive Administered Medications - up to 3 most recent administrations Medication Order MAR Action Action Date Dose Rate Site fludeoxyglucose (F-18) FDG injection 9.2 mCi 9.2 mCi, Intravenous, ONCE PRN, 1 dose, Starting on Wed09/29/16 at 1123, Until Wed09/29/16 at 1253, Per Protocol, Routine Given 09/29/2016 12:53 PM EDT 9.2 mCi documented in this encounter Care Teams Dicer Operator Relationship Specialty Start Date End Date Radha Acuna MD [address] [place] [address] [place] [address] PCP - General 08/07/11 documented as of this encounter
--- OUTSIDE RECORDS SUMMARY | 2024-04-07 16:42 | XMS_ITS | Encounter Summary ---
Author Organization [facility] [place] [address] Care Team Providers Care Supervisor Post Wave Name Role Phone Radha Acuna MD Primary Care Provider +1- [phone] Encounter Details Date Type Department Care Team (Late st Contact Info) Description 10/02/2016 [place] [address] [facility] [address] Pain associated with surgical procedure Social History Tobacco Use Types Packs/Day Years [...] Visit [place] [address] Shilpi Gallegos MD [facility] DR [place] [address] documented as of this encounter Visit Diagnoses Diagnosis Pain associated with surgical procedure documented in this encounter Care Teams Supervisor Post Wave Relationship Specialty Start Date End Date Radha Acuna MD [address] [place] [address] [place] [address] PCP - General 08/07/11 documented as of this encounter
--- OUTSIDE RECORDS SUMMARY | 2024-04-07 16:42 | XMS_ITS | Encounter Summary ---
[place] [address] Care Team Providers Care Life Coach Name Role Phone Radha Acuna MD Primary Care Provider +1- [phone] Encounter Details Date Type Department Care Team (Late st Contact Info) Description 09/22/2016 Telephone Hematology [place] [address] Mary Anne Henry RN Social [...] Encounter - Mary Anne Henry RN - 09/22/2016 3:14 PM EDT Comprehensive Breast Program (CBP) Note ? 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 She plans to begin chemotherapy/targeted therapy in [facility]. ? Reason for call: returned Trina's call regarding need for need for further work up in interventional radiology post U/S of neck today in radiology. She asked if she will need to go to IR for this and we discussed that should Dr. Negro want a biopsy of the neck it will be scheduled in IR. She also asked about her schedule for echocardiogram, port placement, PET scan; states they have difficulty accessing her veins. ? Plan: ??we discussed that the port will be accessed after placement on 09/30 by IR kiersten and that itwill be used for IV access for her PET scan same day on 09/30 and de-accessed when PET completed. Trina is aware that head boys tennis coach will contact her with pre-port dietary restrictions. She has Dr. Gallegos's phone number for questions regarding schedule. She is aware echocardiogram may need to be done in [facility] and her head boys tennis coach/social secretary is working on this. Trina has our contact phone numbers. documented in this encounter Plan of Treatment Upcoming Encounters Date Type Department Care Team (Late st Contact Info) Description 06/30/2024 4:30 PM EDT Office Visit [place]ology [place] [address] Shilpi Gallegos MD [facility] [address] [place] [address] documented as of this encounter Visit Diagnoses Not on filedocumented in this encounter Care Teams Life Coach Relationship Specialty Start Date End Date Radha Acuna MD [address] [place] [address] [place] [address] PCP - General 08/07/11 documented as of this encounter
--- OUTSIDE RECORDS SUMMARY | 2024-04-07 16:42 | XMS_ITS | Encounter Summary ---
Author Organization [facility] Address [facility] [place] [address] Care Team Providers Care Reconciliation Analyst Name Role Phone Radha Acuna MD Primary Care Provider +1- [phone] Encounter Details Date Type Department Care Team (Late st Contact Info) Description 10/27/2016 8:00 AM EDT Office Visit Hematology [place] [address] Shilpi Gallegos MD [facility] DR HEMATOLOGY [place] [address] Invasive ductal carcinoma of right breast Social [...] Sign Reading Time Taken Comments Blood Pressure 114/72 10/27/2016 7:50 AM EDT Pulse 71 10/27/2016 7:50 AM EDT Temperature 36.9 ??C (98.4 ??F) 10/27/2016 7:50 AM ED T Respiratory Rate 18 10/27/2016 7:50 AM EDT Oxygen Saturation 99% 10/27/2016 7:50 AM EDT Inhaled Oxygen Concentration - - Weight 51.1 kg (112 lb 9.6 oz) 10/27/2016 7:50 A M EDT Height 156 cm (5' 1.42) 10/27/2016 7:50 AM EDT Body Mass Index 20.99 10/27/2016 7:50 AM EDT documented in this encounter Progress Notes * Shilpi Gallegos MD - 10/27/2016 8:00 AM EDT Subjective: Patient ID: Trina Frances is a 36 y.o. female. Cc: breast cancer Interval history: Trina is here for evaluation prior to cycle 2 TCH-P. Cycle 1 was complicated by grade 3 bone pain, rash, diarrhea and non-neutropenic fever on Day 10. She had a normal period that started 10/12. She takes zyrtec every day , once a day in the evening, for allergies so didn't think she should take claritin too. Notices very dry , cracking lips; found solid food very irritating to her mouth; felt her heart pounding loudly, but not faster; Was advised to take potassium when she was seen in ED for UTI, not sure if she should keep taking it. A week or so after chemo her nasal passages are very dry and bloody,tongue feels swollen and throat sore. No change in breast that she has noticed. 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 On 09/11/16, she underwent a mammogram followed by ultrasound showing 2 right anca ast masses and right axilla node 1.2cm. Biopsy showed invasive ductal carcinoma, grade 2 with DCIS.HER2+ (FISH HER2:CEP-17 = 10), ER+/RI+ (11-90%). A right axilla node biopsy was [...] 10/05/16 Review of Systems Constitutional: Negative. HENT: Positive for nosebleeds and sore throat. Eyes: Negative. Respiratory: Negative. Cardiovascular: Negative. Gastrointestinal: Negative. Endocrine: Negative. Genitourinary: Negative. Negative for dysuria. No dysuria, but when she had a fever, she had a UTI diagnosed, and she took antibiotics. Musculoskeletal: Positive for arthralgias and back pain. During terrible bone pain was unable to pickle solution maker her children, painful to move. Skin: Positive for rash. Pustular rash day 5, now improved. Allergic/Immunologic: Negative. Neurological: Negative. Negative for numbness. Psychiatric/Behavioral: Negative. Objective: Physical Exam Constitutional: She [...] is not diaphoretic. No erythema. No pallor. Port site without erythema and functioning well. Psychiatric: She has a normal mood and affect. Her behavior is normal. Judgment and thought contentnormal. Nursing note and vitals reviewed. Recent Results (from the past 24 hour(s)) Comprehensive metabolic panel (non-fasting) Result Value Ref Range Glucose Lvl 82 65 - 199 mg/dL BUN 15 8 - 18 mg/dL Creatinine 0.88 0.70 - 1.20 mg/dL Sodium 140 135 - 145 mmol/L Potassium 3.7 3.5 - 5.0 mmol/L Chloride 102 98 - 107 mmol/L CO2 26 22 - 31 mmol/L Anion Gap 12 5 - 15 mmol/L Calcium 9.4 8.5 - 10.5 mg/dL Total Protein 6.7 6.1 - 8.0 gm/dL Albumin 4.3 3.2 - 5.2 gm/dL AST 27 0 - 30 unit/L ALT 24 0 - 30 unit/L Alk Phos 59 40 - 104 unit/L Total Bilirubin 0.3 0.2 - 1.3 mg/dL Estimated GFR >60 >=60 Hemogram Result Value Ref Range WBC 4.8 4.0 - 9.5 x10(3)/mcL RBC 3.27 (L) 4.00 - 5.21 x10(6)/mcL Hemoglobin 10.1 (L) 11.7 - 15.5 gm/dL Hematocrit 29.3 (L) 35.7 - 45.8 % MCV 89.6 82.6 - 94.4 fL MCH 30.9 27.1 - 32.0 pg MCHC 34.5 31.7 - 35.0 gm/dL Platelets 209 145 - 357 x10(3)/mcL RDWSD 37.4 37.0 - 46.0 fL RDWCV 12.1 11.5 - 14.1 % MPV 9.2 7.6 - 12.9 fL nRBC % Auto 0.0 % nRBC Abs Auto 0.000 0.000 - 0.000 x10(3)/mcL Differential, Automated Result Value Ref Range Neutrophils % 55.2 % Neutr Abs (ANC) 2.63 1.70 - 6.10 x10(3)/mcL Lymphocytes % 30.5 % Lymphocytes Abs 1.4 0.9 - 3.2 x10(3)/mcL Monocytes % 13.7 % Monocyte Abs 0.6 0.3 - 0.9 x10(3)/mcL Eosinophils % 0.2 % Eosinophils Abs 0.0 0.0 - 0.4 x10(3)/mcL Basophils % 0.0 % Basophils Abs 0.0 0.0 - 0.1 x10(3)/mcL Immature Gran % 0.40 % Dalia Gran Abs 0.02 0.00 - 0.04 x10(3)/mcL Transvaginal ultrasound viewed independently by me and pt called with results, normal uterus and ovaries bilaterally. Assessment and Plan: No problem-specific Assessment & Plan notes found for this encounter. #1 Breast cancer--Stage IIA right breast cancer, er+ her2 +. Tolerating neoadjuvant chemotherapy, clinically stable. #2 Chemotherapy--monitoring for toxicity--Multiple grade 2 toxicities, but all recovered, and oftentoxicities after cycle 1 are the worst. Bone pain can be reduced by changing to neupogen daily for 7-10 days, but also improves on its own during the course of the regimen. It sounds like it was mostly due to neulasta , and not due to docetaxel. She'd like to wait and see if it's less painful this time. OK to take claritin in the morning and afternoon, with zyrtec at night. Only minor interactions perCP online. She will start tomorrow morning prior to the Onpro injection. OK to take ibuprofen and/or tylenol for bone pain, she will call if this is not enough and needs a rx for oxycodone or morphine. #3 Fatigue--improved. Grade 2/3 week 2. #4 Menopausal symptoms--LMP: 10/12/16 will likely get more irregular as her ovaries are affected. # 5Hypermetabolic ovaries on PET scan likely physiologic-- Ultrasound today, was normal. #6 Medication management --may use claritin for 1-3 days as needed, but wont' take it at same time as zyrtec. Clindamycin cream for pimply rash if it re-occurs. This too often improves with each cycle. Mouth rinses with hydrogen peroxide and baking soda for sore throat, sensitive tongue. She wants to have her the rest of her chemotherapy here, we will arrange for that. Plan: cycle 2 TCH-P today, for a total of 6 cycles. Full breast exam prior to cycle 3. Supportive care as outline above. F/u 3 wks for cycle 3. documented in this encounter Plan of Treatment Upcoming Encounters Date Type Department Care Team (Late st Contact Info) Description 06/30/2024 4:30 PM EDT Office Visit Hematology [place] [address] Shilpi Gallegos MD [facility] DR HEMATOLOGY [place] [address] documented as of this encounter Visit Diagnoses Diagnosis Invasive ductal carcinoma of right breast documented in this encounter Care Teams Reconciliation Analyst Relationship Specialty Start Date End Date Radha Acuna MD [address] [place] [address] [place] [address] PCP - General 08/07/11 documented as of this encounter
--- OUTSIDE RECORDS SUMMARY | 2024-04-07 16:42 | XMS_ITS | Encounter Summary ---
Author Organization [facility] [place] [address] Care Team Providers Care Contact Lens Technician Name Role Phone Radha Acuna MD Primary Care Provider +1- [phone] Reason for Visit * Reason Comments Follow-up Encounter Details Date Type Department Care Team (Late st Contact Info) Description 11/24/2016 10:30 AM EDT Office Visit [place] [address] Shilpi Gallegos MD [facility] [place] [address] Light headed Social History Tobacco Use Types Packs/Day Years [...] Sign Reading Time Taken Comments Blood Pressure 131/70 11/24/2016 10:42 AM EDT Pulse 98 11/24/2016 10:42 AM EDT Temperature 36.8 ??C (98.2 ??F) 11/24/2016 10:42 AM E DT Respiratory Rate 18 11/24/2016 10:42 AM EDT Oxygen Saturation 98% 11/24/2016 10:42 AM EDT Inhaled Oxygen Concentration - - Weight 48.1 kg (106 lb) 11/24/2016 10:42 AM EDT Height 156.7 cm (5' 1.69) 11/24/2016 10:42 AM E DT Body Mass Index 19.58 11/24/2016 10:42 AM EDT documented in this encounter Progress Notes * Shilpi Gallegos MD - 11/24/2016 10:30 AM EDT Subjective: Patient ID: Trina Ball is a 36 y.o. female. Cc: fatigue Interval history: Trina is here for f/u in between chemotherapy cycles due to fatigue, constipation, hot flashes, migraines and chest fluttering. She's had decreased appetite and weight loss but deniesvomiting or diarrhea at this time. Does report fairly constant nausea but she is reluctant to take compazine because of the potential side effects. She's been drinking about 10 glasses of plain waterdaily, just today is trying gatorade. She eats small meals, like toast and cream cheese, yepez's pie. Also has noticed intense right shoulder blade pain recently. Migraines overall were a little better this last cycle, if she gets an aura she takes ibuprofen andthat usually helps, she doesn't have any prescription medications for migraine. 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 On 09/11/16, she underwent a mammogram followed by ultrasound showing 2 right anca ast masses and right axilla node 1.2cm. Biopsy showed invasive ductal carcinoma, grade 2 with DCIS.HER2+ (FISH HER2:CEP-17 = 10), ER+/CO+ (11-90%). A right axilla node biopsy was [...] Systems Constitutional: Negative. HENT: Negative. Eyes: Negative. Cardiovascular: Positive for palpitations. Feels a fluttering in her chest 3 days after chemo, goes away on its own, but is a scary sensation. Gastrointestinal: Negative. Endocrine: Negative. Genitourinary: Negative. Musculoskeletal: Negative. Skin: Negative. Allergic/Immunologic: Negative. Neurological: Positive for numbness. Mild tingling in her fingers. Hematological: Negative. Psychiatric/Behavioral: Negative. No results found for this or any previous visit (from the past 72 hour(s)). Objective: Physical Exam Constitutional: She is oriented to person, place, and time. She appears well- developed and well-nourished. No distress. HENT: Head: Normocephalic and atraumatic. Mouth/Throat: Oropharynx is clear and moist. No oropharyngeal exudate. alopecic Eyes: Conjunctivae are normal. Left eye exhibits no discharge. Neck: Normal range of motion. No JVD present. No tracheal deviation present. No thyromegaly present. Cardiovascular: Normal rate. Pulmonary/Chest: Effort normal. Abdominal: Soft. Bowel sounds are normal. She exhibits no distension and no mass. There is no tenderness. There is no rebound and no guarding. Musculoskeletal: Normal range of motion. Lymphadenopathy: She has no cervical adenopathy. Neurological: She is alert and oriented to person, place, and time. Skin: Skin is warm and dry. She is not diaphoretic. No erythema. There is pallor. Psychiatric: She has a normal mood and affect. Her behavior is normal. Judgment and thought contentnormal. Nursing note and vitals reviewed. Results for TRINA BALL ( ) as of 11/27/2016 14:15 Ref. Range 11/24/2016 12:00 WBC Latest Ref Range: 4.0 - 9.5 x10(3)/mcL 5.9 RBC Latest Ref Range: 4.00 - 5.21 x10(6)/mcL 2.50 (L) Hemoglobin Latest Ref Range: 11.7 - 15.5 gm/dL 8.2 (L) Hematocrit Latest Ref Range: 35.7 - 45.8 % 22.9 (L) MCV Latest Ref Range: 82.6 - 94.4 fL 91.6 MCH Latest Ref Range: 27.1 - 32.0 pg 32.8 (H) MCHC Latest Ref Range: 31.7 - 35.0 gm/dL 35.8 (H) RDWSD Latest Ref Range: 37.0 - 46.0 fL 52.7 (H) RDWCV Latest Ref Range: 11.5 - 14.1 % 16.2 (H) Platelets Latest Ref Range: 145 - 357 x10(3)/mcL 127 (L) MPV Latest Ref Range: 7.6 - 12.9 fL 10.5 nRBC % Auto Latest Units: % 0.0 nRBC Abs Auto Latest Ref Range: 0.000 - 0.000 x10(3)/mcL 0.000 Neutr Abs (ANC) Latest Ref Range: 1.70 - 6.10 x10(3)/mcL 2.08 Neutrophils % Latest Units: % 35.5 Immature Gran % Latest Units: % 1.00 Lymphocytes % Latest Units: % 29.3 Monocytes % Latest Units: % 33.9 Eosinophils % Latest Units: % 0.0 Basophils % Latest Units: % 0.3 Dalia Gran Abs Latest Ref Range: 0.00 - 0.04 x10(3)/mcL 0.06 (H) Lymphocytes Abs Latest Ref Range: 0.9 - 3.2 x10(3)/mcL 1.7 Monocyte Abs Latest Ref Range: 0.3 - 0.9 x10(3)/mcL 2.0 (H) Eosinophils Abs Latest Ref Range: 0.0 - 0.4 x10(3)/mcL 0.0 Basophils Abs Latest Ref Range: 0.0 - 0.1 x10(3)/mcL 0.0 Plat Estimate Unknown Decreased RBC Morphology Unknown Abnormal Ovalocytes Latest Units: /HPF 1-5 Tear Drop Cells Latest Units: /HPF 1-5 Dohle Bodies Unknown Present Sodium Latest Ref Range: 135 - 145 mmol/L 138 Potassium Latest Ref Range: 3.5 - 5.0 mmol/L 3.1 (L) Chloride Latest Ref Range: 98 - 107 mmol/L 98 CO2 Latest Ref Range: 22 - 31 mmol/L 27 Anion Gap Latest Ref Range: 5 - 15 mmol/L 13 BUN Latest Ref Range: 8 - 18 mg/dL 7 (L) Creatinine Latest Ref Range: 0.70 - 1.20 mg/dL 0.76 Estimated GFR Latest Ref Range: >=60 >60 Glucose Lvl Latest Ref Range: 65 - 199 mg/dL 106 Calcium Latest Ref Range: 8.5 - 10.5 mg/dL 9.4 Total Protein Latest Ref Range: 6.1 - 8.0 gm/dL 6.9 Albumin Latest Ref Range: 3.2 - 5.2 gm/dL 4.3 Total Bilirubin Latest Ref Range: 0.2 - 1.3 mg/dL 0.3 Alk Phos Latest Ref Range: 40 - 104 unit/L 72 AST Latest Ref Range: 0 - 30 unit/L 31 (H) ALT Latest Ref Range: 0 - 30 unit/L 26 Assessment and Plan: No problem-specific Assessment & Plan notes found for this encounter. #1 Breast cancer--36 yo woman with clinical stage IIA right upper inner breast cancer, ER+ HEr2+. S/p 3 cycles of TCH-P. Grade 3 fatigue. + symptomatic tachyardia, light headedness--instructed to increase po intake to include broths withprotein and fat in them not just plain water. Take anti-emetics so she is more apt to eat at least 3 small meals a day, and be more active. #2 Chemotherapy--monitoring for toxicity--BP ok today, weight down 5# Borderline hypokalemic prior to cycle 3. Taking K supplements if she has diarrhea, hasn't take any since last week. Recheck today shows hypokalemia--she took 20 meq here today before she left the hospital and will start taking supplement daily until she is done with chemotherapy. Anemia--chemo-induced and exacerbated by lack of iron and protein in diet, lack of activity. Will follow and transfuse for hgb < 7.5 Or if symptoms persist. Will order type and screen with labs prior to next cycle. #3 Fatigue--as above, will likely improve with better nutrition and activity. #4 Menopausal symptoms--n/a. #5 Bone health--not addressed today. #6 Medication management --Trina was strongly advised to take supportive medication as recommended toprevent complications, potentially serious ones, from chemotherapy. She understands and agrees. #7 Transitional Care Summary: Trina may want to consider the [facility] research study for young women survivors evaluating mindfulness and education. Plan: f/u in 2 wks for cycle 4. Triage nurse to call pt weekly. * Flory Foster RN - 11/24/2016 10:30 AM EDT Treatment:Cycle 3 11/17, Taxotere, Pertuzumab and Herceptin. Neuro: A&Ox3, reports headaches when she wakes up in the morning, dull, eyes sensitive to light, has only had one migraine since last infusion 11/17 - 30 minutes with aura Peripheral neuropathy: reports tingling in only in fingers, not in toes and denies pain Double vision: Reports aura with migraine, otherwise denies Resp: Denies SOB, cough, and chest pain. Pain: Denies pain, but states she had one episode where she took a nap and had super intense pain on between the shoulder blades closer to the right side and then her whole right arm hurt but only her fingers were numb in both hands, no pain in left arm. Nausea: Reports that she has been nauseated - has been drinking gingerale, sister made her yojana drink from yojana, reports she doesn't like taking pills, has not taken the compazine at all due to not liking to take pills Vomiting: Denies Constipation/Diarrhea: After 11/17 infusion had constipation for 4-5 days and then began taking stoolsofteners Wednesday and Wednesday and has had diarrhea since Wednesday (yesterday) - mgccff-wydrgb-qyoyh in color, x3 Mouth sores: Denies - but says if she eats anything that is rough it is uncomfortable Coping: Some days worse than others but feels that she is coping well Fatigue: Very (0-5 scale) reports fatigue about a 4 Diet: Reports that she is nauseated, no appetitie, food doesn't sound good. Drinks a lot of water, 16 oz bottles 7-10 a day Fevers/infection: States that she has low grade fevers around 99.6 degrees Warmess/swelling in LE: Denies Skin changes: Denies Med refills: Denies documented in this encounter Plan of Treatment Upcoming Encounters Date Type Department Care Team (Late st Contact Info) Description 06/30/2024 4:30 PM EDT Office Visit H[place]ology [place] [address] Shilpi Gallegos MD [facility] [address] [place] [address] documented as of this encounter Results * (ABNORMAL) Comprehensive metabolic panel (non-fasting) (11/24/2016 12:00 PM EDT) [facility] Glucose 106 65 - 199 mg/dL [facility] Comment:Diabetes: >=200 mg/d L plus symptoms Blood Urea Nitrogen 7(L) 8 - 18 mg/dL [facility] Creatinine 0.76 0.70 - 1.20 mg/dL [facility] Comment: Please note that the pediatric reference intervals supplied above were not validated at [facility]. Results from pediatric patients should be interpreted [...] the following links into your internet browser. [email or web address] Blood specimen (specimen) 11/24/2016 12:00 PM EDT 11/24/2016 12:08 PM EDT Narrative Resulting Agency Comment Spec In Lab Shilpi Gallegos MD CHEMISTRY ORDERABLE S [facility] [place] [address] documented in this encounter Visit Diagnoses Diagnosis Light headed Dizziness and giddiness documented in this encounter Care Teams Contact Lens Technician Relationship Specialty Start Date End Date Radha Acuna MD [address] [place] [address] [place] [address] PCP - General 08/07/11 documented as of this encounter
--- OUTSIDE RECORDS SUMMARY | 2024-04-07 16:42 | XMS_ITS | Encounter Summary ---
Author Organization [facility] Address [facility] [place] [address] Care Team Providers Care Steam Train Driver Name Role Phone Radha Acuna MD Primary Care Provider +1- [phone] Reason for Visit * Reason Comments Chemotherapy [...] HCL, 25MCG, INJECTION (ALOXI) Shilpi Gallegos MD [facility] [address] [place] [address] [address] Referral ID Status Reason Start Date Expiration Date Visits Re quested Visits Authorized [id number] Closed 10/02/2016 04/03/2017 99 99 Encounter Details Date Type Department Care Team (Latest Contact Info) Description 11/17/2016 7:07 AM EDT - 11/17/2016 11:59 PM EDT Hospital Encounter Hematology [place] [address] Invasive ductal carcinoma of right [...] Sign Reading Time Taken Comments Blood Pressure 109/65 11/17/2016 9:36 AM EDT Pulse 70 11/17/2016 9:36 AM EDT Temperature 36.4 ??C (97.5 ??F) 11/17/2016 9:36 AM ED T Respiratory Rate 18 11/17/2016 9:36 AM EDT Oxygen Saturation 100% 11/17/2016 9:36 AM EDT Inhaled Oxygen Concentration - - Weight 50.5 kg (111 lb 6.4 oz) 11/17/2016 9:33 A M EDT Height 156.7 cm (5' 1.69) 11/17/2016 9:33 AM ED T Body Mass Index 20.58 11/17/2016 9:33 AM EDT documented in this encounter Discharge Instructions * Patient Instructions* Susan Alvares RN - 11/17/2016 2:[address] Gallegos recommends the following: Take a potassium pill when you get home today and then each day that you have more than 1 episode of diarrhea, but no more than once a day. documented in this encounter Medications at Time [...] Progress Notes * Susan Alvares RN - 11/17/2016 11:46 AM EDT Patient Name: Trina Frances Patient Age: 36 y.o. Birthdate: 1980 Admit date: 11/17/2016 Attending Physician: Britta att. providers found TIME TREATMENT STARTED: 928 TIME TREATMENT ENDED: 1500 Trina Frances, 36 y.o. female with diagnosis of Breast cancer is here for chemotherapy infusion oferjeta/Herceptin/taxotere/carbo/onPRO. PROTOCOL: no CYCLE: 3 WEEK: n/a DAY: 1 S: Pt. offers she had migraines for 6 days s/p last treatment, 2 weeks of diarrhea, intermittent nausea, no vomiting, and mouth sores. ??She admits she does not like to take antiemetics or the imodium and while salt and baking soda rinses were recommended she did not utilize them. ??All symptoms are currently resolved. ??I reviewed the importance of why diarrhea should be controlled, (K = 3.4 today) why we recommend antiemetics and why we hope she could stay ahead of increasing mouth sores. ??She stated understanding and was agreeable to take a list of foods rich in potassium. Additionally, Dr. Gallegos was advised and she advised I do recommend she take a potassium pill when she gets home and then each day that she has more than 1 episode of diarrhea, but no more than once a day. O: Chemotherapy orders independently verified for correct drug name, route and dosage per patient'sheight, weight and BSA by Amanda Alvares RN and onsite pharmacist REACTIONS (DESCRIPTION, TIME, INTERVENTION AND EFFECTIVENESS) None reported. A: Pt. Tolerated treatment well. Trina Frances confirms that all questions and issues have been addressed. Patient denies further need. P: Return to clinic per routine Onpro administered 11/17/16 at 1451 Lot Number [id number] Written information regarding Onpro was given, side effects and management strategies were discussed. Patient was provided an opportunity to ask questions and verbalized understanding of the information and treatment. No barriers to learning were identified. Trina Frances, , was counseled on how to call for any further questions or concerns. documented in this encounter Plan of Treatment Upcoming Encounters Date Type Department Care Team (Late st Contact Info) Description 06/30/2024 4:30 PM EDT Office Visit [place]ology [place] [id number] Shilpi Gallegos MD [facility] [address] [place] [address] documented as of this encounter Visit Diagnoses [...] = 6), Intravenous, ONCE, 1 dose, On Wed11/17/16 at 0945, Administer over 30 Minutes, Hold Parameters: CARBOplatin, Call provider for serum creatinine less than (mg/dL): .2, Call provider for serum creatinine greater than (mg/dL): 1.5 New Bag 11/17/2016 2:10 PM EDT 665 mg 633 mL/hr dexamethasone (DECADRON) injection 10 mg 10 mg, Intravenous, ONCE, 1 dose, On Wed11/17/16 at 0845, Administer 60 minutes prior to DOCEtaxel Given 11/17/2016 10:10 AM EDT 10 mg diphenhydrAMINE (BENADRYL) injection 25 mg 25 mg, Intravenous, ONCE, 1 dose, On Wed11/17/16 at 0845, Administer 60 minutes prior to DOCEtaxel, Routine Given 11/17/2016 10:14 AM EDT 25 mg DOCEtaxel (TAXOTERE) 112 mg in dextrose 5% Non-PVC 255.6 mL chemo infusion 112 mg (rounded from 111.75 mg = 75 mg/m2/dose ? 1.49 m2 Treatment Plan BSA from Recorded weight), Intravenous, ONCE, 1 dose, On Wed11/17/16 at 0945, Administer over 60 Minutes New Bag 11/17/2016 12:57 PM EDT 112 mg 255.6 mL/hr famotidine (PEPCID) injection 20 mg 20 mg, Intravenous, ONCE, 1 dose, On Wed11/17/16 at 0845, Administer 60 minutes prior to DOCEtaxel Given 11/17/2016 10:18 AM EDT 20 mg heparin, porcine 100 unit/mL flush 500 Units 500 Units, Intravenous, ONCE PRN, Starting on Wed11/17/16 at 0942, Until Wed11/18/16 at 0440, Line Care, Refer to Intravenous (IV) Procedure: Accessing Implanted Vascular Access Devices (654) procedure and/or Intravenous (IV) Job Aid: Adult Flushing & Catheter Care (0795) job aid for additional information regarding guidelines and administration., Routine Given 11/17/2016 2:55 PM EDT 500 Units loperamide (IMODIUM) capsule 4 mg 4 mg, Oral, ONCE, 1 dose, On Wed11/17/16 at 0845, Do not exceed 16 mg/day., Routine Given 11/17/2016 10:08 AM EDT 4 mg palonosetron (ALOXI) injection 0.25 mg 0.25 mg, Intravenous, ONCE, 1 dose, On Wed11/17/16 at 0845, Administer over 30 seconds., Routine Given 11/17/2016 10:22 AM EDT 0.25 mg pegfilgrastim (NEULASTA ONPRO) injection kit 6 mg, Subcutaneous, ONCE, 1 dose, On Wed11/17/16 at 0845, Allow the prefilled syringe co-packaged with the on-body injector to reach room temperature at least 30 minutes prior to administration., Routine Given 11/17/2016 2:51 PM EDT 6 mg Right Arm pertuzumab (PERJETA) 420 mg in sodium chloride 0.9% 264 mL chemo infusion 420 mg, Intravenous, ONCE, 1 dose, On Wed11/17/16 at 0945, Administer over 30 Minutes, This is a restricted medication. Is this being used for an FDA approved indication? Yes New Bag 11/17/2016 11:02 AM EDT 420 mg 528 mL/hr sodium chloride 0.9 % flush 5-20 mL 5-20 mL, Intravenous, EVERY 1 MIN PRN, Starting on Wed11/17/16 at 0942, Until Wed11/18/16 at 0440, Line Care, Flush pertains to all indwelling lines. Flush per protocol found in the job aid using the link provided on this medication record. Refer to Intravenous (IV) Job Aid: Adult Flushing & Catheter Care (0329) job aid for additional information regarding guidelines and administration., Routine Given 11/17/2016 2:55 PM EDT 20 mLs TRASTuzumab (HERCEPTIN) 310 mg in sodium chloride 0.9% 264.7619 mL infusion 310 mg (rounded from 309 mg = 6 mg/kg/dose ? 51.5 kg Treatment plan Recorded weight), Intravenous, ONCE, 1 dose, On Wed11/17/16 at 0945, Administer over 30 Minutes, Compatible with 0.9% sodium chloride ONLY New Bag 11/17/2016 12:10 PM EDT 310 mg 529.5 mL/hr documented in this encounter Care Teams Steam Train Driver Relationship Specialty Start Date End Date Radha Acuna MD [address] [place] [address] [place] [address] PCP - General 08/07/11 documented as of this encounter
--- OUTSIDE RECORDS SUMMARY | 2024-04-07 16:42 | XMS_ITS | Encounter Summary ---
Author [facility] [place] [address] Care Team Providers Care Shoe Planner Name Role Phone Radha Acuna MD Primary Care Provider +1- [phone] Encounter Details Date Type Department Care Team (Late st Contact Info) Description 10/14/2016 Telephone Hematology [place] [address] Chris Lopez MD Social History Tobacco Use Types Packs/Day [...] encounter Miscellaneous Notes * Telephone Encounter - Chris Lopez MD - 10/14/2016 7:54 PM EDT Called by patient who reports a temperature of 101.F. Repeated it and was 100.4F. Reports chills, congestion and rhinitis but no SOB, cough, or rigors. Has had diarrhea for the past few days but only2 watery BMs that resolved with imodium. She is currently D10C1 of carbo/taxol plust trastuzumab and pertuzumab. Referred her to her local ED given she is likely near her [place] for neutrophil count and may be neutropenic. Patient reports she will present to [facility]. Called ED provider there for sign out and recommended infectious workup. If she is neutropenic, recommended starting anti-pseudomonal IV antibiotics and admiss ion. documented in this encounter Plan of Treatment Upcoming Encounters Date Type Department Care Team (Late st Contact Info) Description 06/30/2024 4:30 PM EDT Office Visit Hematology [place] [address] Shilpi Gallegos MD [facility] [address] [place] [address] documented as of this encounter Visit Diagnoses Not on filedocumented in this encounter Care Teams Shoe Planner Relationship Specialty Start Date End Date Radha Acuna MD [address] [place] [address] [place] [address] PCP - General 08/07/11 documented as of this encounter
--- OUTSIDE RECORDS SUMMARY | 2024-04-07 16:42 | XMS_ITS | Encounter Summary ---
[place] [address] Care Team Providers Care Cheese Production Supervisor Name Role Phone Radha Acuna MD Primary Care Provider +1- [phone] Encounter Details Date Type Department Care Team (Late st Contact Info) Description 09/24/2016 Telephone Hematology [place] [address] Mary Anne Henry RN Social [...] Encounter - Mary Anne Henry RN - 09/24/2016 10:41 AM EDT Comprehensive Breast Program (CBP) Note ? Trina Piña Frances??is a 36 y.o.??female with newly diagnosed ER/[place]+/HER2+??right??breast IDC/DCIS (09/11/2016). She plans to begin chemotherapy/targeted therapy in [facility]. ? Reason for call: Trina called to inquire about date of neck biopsy in IR. ?? Plan: ??we discussed that IR derrickman helper indicated to me on 09/23 that IR may take up to 48 hours to review the information and then will schedule the biopsy through Dr. Negro' office. Trina was provided with Dr. Negro' derrickman helper's name and number should she wish to follow up with her tomorrow as to date/time for neck biopsy. ?? Trina has our contact phone numbers. documented in this encounter Plan of Treatment Upcoming Encounters Date Type Department Care Team (Late st Contact Info) Description 06/30/2024 4:30 PM EDT Office Visit Hematology [place] [address] Shilpi Gallegos MD [facility] DR [place] [address] documented as of this encounter Visit Diagnoses Not on filedocumented in this encounter Care Teams Cheese Production Supervisor Relationship Specialty Start Date End Date Radha Acuna MD [address] [place] [address] [place] [address] PCP - General 08/07/11 documented as of this encounter
--- OUTSIDE RECORDS SUMMARY | 2024-04-07 16:42 | XMS_ITS | Encounter Summary ---
Author Organization [place] [address] Care Team Providers Care Hybrid Tester Name Role Phone Radha Acuna MD Primary Care Provider [phone]- [phone] Reason for Referral * Diagnostic Test (Routine) - Closed Specialty Diagnoses / Procedures Referred By Contgabriela t Referred To Contact Radiology Diagnoses Malignant neoplasm of overlapping sites of right female breast Procedures IR Mediport Placement / Exchange Shilpi Gallegos MD [facility] [address] [place] [address] [facility] [place] [address] Referral ID Status Reason Start Date Expiration Date V isits Requested Visits Authorized [id number] Closed Specialty Service Requested 09/22/2016 09/22/2017 3 3 Reason for Visit * Diagnostic Test (Routine) - Closed Specialty Diagnoses / Procedures Referred By Contgabriela t Referred To Contact Radiology Diagnoses Malignant neoplasm of overlapping sites of right female breast Procedures IR Mediport Placement / Exchange Shilpi Gallegos MD [facility] [address] [place] [address] [facility] [place] [address] Referral ID Status Reason Start Date Expiration Date V isits Requested Visits Authorized [id number] Closed Specialty Service Requested 09/22/2016 09/22/2017 3 3 Encounter Details Date Type Department Care Team (Latest Contact Info) Description 09/29/2016 7:48 AM EDT - 09/29/2016 11:18 AM EDT Hospital Encounter Radiology at [facility] [place] [address] Shilpi Gallegos MD [facility] [address] [place] [address] Malignant neoplasm of overlapping sites of right female breast Discharge Disposition: Home Social History Tobacco [...] Sign Reading Time Taken Comments Blood Pressure 113/68 09/29/2016 10:30 AM EDT Pulse 68 09/29/2016 10:09 AM EDT Temperature 35.7 ??C (96.3 ??F) 09/29/2016 10:20 AM E DT Respiratory Rate 16 09/29/2016 10:30 AM EDT Oxygen Saturation 100% 09/29/2016 10:45 AM EDT Inhaled Oxygen Concentration - - Weight - - Height - - Body Mass Index - - documented in this encounter Discharge Instructions * Discharge Instructions* Julissa Alonso RN - 09/29/2016 9:57 AM EDT Images from the original note were not included. [facility] Department of Vascular and Interventional Radiology Discharge Instructions for your Chest Port You have received a ???Power Port?? , which provides access for infusions and blood draws. What makes this a ???Power Port?? is the unique ability to ???power inject?? contrast (intravenous dye) through the port when getting a CT scan, which produces superior images (pictures). Patients who don???t have these special ports need to have an IV started if they need dye injected for their CT scan. Your port is printed with the letters ???CT?? which can be detected by x- ray to identify it as a ???Power Port?? . You will be provided with an ID card stating the booking manager and type of port you have. Please carry this with you in a safe place. Bandage: There is a sterile dressing over the port site consisting of small gauze with a clear dressing (Tegaderm or [id number] ). This dressing should be left in place for 48 hours. If the clear dressing becomes loose you should place tape over the edges to secure it in place. Note: If you have steri-strips beneath your dressing, simply allow them to fall off. Do not peel them off. Pain: Apply ice bag to site (s) at 30 minute intervals (30 minutes on and 30 minutes off) for 24 hours?? . May use as needed for pain and/or bruising after 24 hours. Bathing: Do not take a shower until 48 hours after your port is placed; after this time you may shower with the dressing in place, then remove it and pat your skin dry. After 48 hours, we recommend that you cover the area with THE AQUA GUARD PROVIDED for 1 week while showering, facing away from theshower stream. You may use a bandaid to cover the site after the 48 hours are up if there is any drainage. No tub baths, whirlpools or swimming for one week following port placement. What to expect when your port is accessed: 1. You may feel tenderness the first few times it is accessed but generally this subsides over time. Ask your healthcare provider to use a local anesthetic on the site if discomfort is a problem for you. You may ask for a prescription for a topical cream (EMLA) from your clinician; you may apply athome prior to your appointments, to help numb the skin over your port. 2. The clinician should be wearing sterile gloves and a mask during the access procedure. Anyone inthe room with you should also have a mask on. 3. The skin over and 2 inches around the port should be cleaned with a disinfectant 4. Tell the clinician if you would like the skin numbed (lidocaine) before the access needle is placed. 5. Unless you are unable to take heparin (blood thinner), the port should be injected with a heparin solution before deaccess (at end of each treatment or blood draw). When to call your healthcare provider: ??? If you notice bleeding from the puncture site in your neck, or from the port incision on your chest, you should apply firm pressure over the site for 10-15 minutes, keeping the site covered. Callif you are still bleeding after 10-15 minutes. ??? If you develop pain, redness, drainage or swelling at or around the port site, or the puncture site in the neck ??? If you develop fever (elevation of more than 2 degrees or greater than 101F) and/or shaking chills When to call the Interventional Radiology Department: Please call with any questions or concerns. If it is during regular office hours, please call [phone]. If it is after regular office hours, or on weekends or holidays, please call [phone] and ask to speak to the Senior Controls Engineer parks recreation director for Interventional Radiology. XXX You have received medication during your procedure [...] as of this encounter Progress Notes * Diya Brown RN - 09/29/2016 9:52 AM EDT To procedure room 2 via stretcher. Onto table Supine. (position) All monitors, O2, safety strap in place. Med's per protocol. * Alejo Dietz APRN - 09/29/2016 8:30 AM EDT ASA: 2: Patient with mild systemic disease Mallampati: I: soft palate, fauces, tonsillar pillars and uvula can be seen Cardiovascular: Rhythm: Regular Rate: Normal Pulmonary: Breath sounds clear to auscultation Consent: The sedation plan, its benefits and risks, and alternatives were discussed with the patient. The planned procedure, its benefits and risks, and alternatives were discussed with the patient. The patient consented to the procedure. Sedation Plan: moderate (conscious sedation) * Jonathan Rao MD - 09/28/2016 8:38 AM EDT VIR PRE-PROCEDURE NOTE Name: Trina Ball Date of : 1980 Referring Physician: Rosy Indication: Breast CA, needs port for chemotherapy Planned Procedure: Port placement Chief Complaint/HPI: 36 y.o. female with a recently diagnosed ER/CT/Her2 positive R breast cancer. We have been asked to place a port for chemotherapy administration. Please leave port accessed on the day of the procedure for use during the PET scan. Patient Active Problem List Diagnosis Code ??? 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 Invasive ductal carcinoma of right breast C50.911 Allergies Allergen Reactions ??? Aspirin Hives ??? Hydrocodone-Acetaminophen Hives ??? Tioconazole Current Outpatient Prescriptions on File Prior to Encounter Medication Sig Dispense Refill ??? multivitamin (THERAGRAN) Tablet Take 1 tablet by mouth daily. ??? cetirizine (ZYRTEC) 10 mg tablet No current facility-administered medications on file prior to encounter. Pertinent ROS: as per HPI Labs: Lab Results Component Value Date/Time WBC 6.2 09/16/2016 07:05 AM HCT 40.5 09/16/2016 07:05 AM PLATELET 218 09/16/2016 07:05 AM BUN 13 09/16/2016 07:05 AM CREATININE 0.75 09/16/2016 07:05 AM Physical Exam: Pending (to be performed in angio) ASA: Pending (to be assessed in angio) Mallampati Class: Pending (to be assessed in angio) Assessment / Plan: 36 y.o. female with history as above who presents for a Mediport placement. Prophylactic antibiotic: Ancef Planned access site: Left IJ Position: supine Labs: Per IR/CT Protocol Jonathan Rao MD Pager #[phone] * Diya Brown RN - 09/24/2016 4:46 PM EDT ANGIO NURSING DATABASE Name: TRINA BALL Date of : 1980 AGE 36 y.o. Address: [address] [place] [address] (home) Mobile: Telephone Information: Referring Provider: Shilpi Gallegos REASON FOR VISIT: Port placement Anticoagulant/antiplatelet/herbal med. stopped on per MD order. Allergies Allergen Reactions ??? Aspirin CIS - Hives ??? Hydrocodone-Acetaminophen CIS - Hives ??? Tioconazole Pertinent PMH: Patient Active Problem List Diagnosis Code ??? 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 Invasive ductal carcinoma of right breast C50.911 Pertinent PSH: Past Surgical History: Procedure Laterality Date ??? APPENDECTOMY ??? SECTION ??? NASAL SINUS SURGERY ??? TONSILLECTOMY Date/Procedure Med's given/comments 09/29/16 Left chest Mediport Insertion Fentanyl 200 mcg IV, Versed 4 mg IV, Cefazolin 2 grams IV w/odextrose (for PET scan) Laboratory Results: Lab Results Component Value Date CREATININE 0.75 09/16/2016 Lab Results Component Value Date K 3.6 09/16/2016 Lab Results Component Value Date PLATELET 218 09/16/2016 Medications: Prior to Admission medications Medication Sig Start Date End Date Taking? Authorizing Provider multivitamin (THERAGRAN) Tablet Take 1 tablet by mouth daily. PROVIDER, HISTORICAL cetirizine (ZYRTEC) 10 mg tablet 10/02/08 documented in this encounter Plan of Treatment Upcoming Encounters Date Type Department Care Team (Late st Contact Info) Description 06/30/2024 4:30 PM EDT Office Visit Hematology [place] [address] Shilpi Gallegos MD [facility] [address] [place] [address] documented as of this encounter Procedures Procedure Name Priority Date/Time Associated Diagnosis Comments IR MEDIPORT PLACEMENT Routine 09/29/2016 10:18 AM EDT Malignant neoplasm of overlapping sites of right female breast documented in this encounter Results * IR Mediport Placement / Exchange (09/29/2016 10:18 AM EDT) Anatomical Region Laterality Modality X-Ray Angiograph y Narrative 09/29/2016 11:48 AM EDT INTERVENTIONAL RADIOLOGY PROCEDURE NOTE Procedure: 1) US guided left internal jugular vein access 2) Placement of left chest port. Indication for Procedure: Need for durable venous access 36 yo female with a recently diagnosed ER/CT/Her2 positive R breast cancer. We have been [...] Device Information: Vaccess CT (POWER) Port LOT- [id number] Medications: Lidocaine 1% <10 mL SQ, Bupivacaine-Epinephrine [...] left chest. 2) Port ready for use. [employer] Lead Ads Marketing(s): Resident/Fellow: ??Coleman Posada DO Attending: Dr. Sims [...] of female breast documented in this encounter Administered Medications Inactive Administered Medications - up to 3 most recent administrations Medication Order MAR Action Action Date Dose Rate Site BUpivacaine-EPINEPHrine 0.25 %-1:200,000 injection 20 mL 20 mL (50 mg), Infiltration, ONCE, 1 dose, On Wed09/29/16 at 0830, For use in Interventional Radiology (IR) only for procedural sedation with direct provider supervision and verbal order., Angio/IR (Intra-Procedure), Routine Given 09/29/2016 9:41 AM EDT 20 mLs ceFAZolin in Normal Saline 2 gram/100 mL Soln 2,000 mg 2,000 mg, Intravenous, at 200 mL/hr, ONCE, On Wed09/29/16 at 0930, 1 dose, Please mix in NS, not D5W, patient has a PET CT this morning and cannot have D5W as it will skew the results of the PET, Day of Surgery (Day of Procedure) Given 09/29/2016 9:58 AM EDT 2,000 mg 200 mL/hr fentaNYL 50 mcg/mL multi-dose injection 25-50 mcg, Intravenous, EVERY 5 MIN PRN, Starting on Wed09/29/16 at 0812, Until Wed09/29/16 at 1007, Pain, per unit protocol, - Start dose [...] and verbal order., Angio/IR (Intra-Procedure), Routine Given 09/29/2016 9:49 AM EDT 50 mcg Given 09/29/2016 9:40 AM EDT 50 mcg Given 09/29/2016 9:33 AM EDT 50 mcg lidocaine (XYLOCAINE) 10 mg/mL (1 %) injection 10 mg 10 mg, Subcutaneous, ONCE, 1 dose, On Wed09/29/16 at 0830, For use in Interventional Radiology (IR) only for procedure with direct provider supervision and verbal order., Angio/IR (Intra-Procedure), Routine Given 09/29/2016 9:34 AM EDT 10 mg midazolam (PF) (VERSED) 1 mg/mL multi-dose injection 0.5-1 mg 0.5-1 mg, Intravenous, EVERY 3 MIN PRN, Starting on Wed09/29/16 at 0812, Until Wed09/29/16 at 1007, Sleep, - Start dose; 1 mg (Reduce [...] and verbal order., Angio/IR (Intra-Procedure), Routine Given 09/29/2016 9:49 AM EDT 1 mg Given 09/29/2016 9:40 AM EDT 1 mg Given 09/29/2016 9:33 AM EDT 1 mg sodium chloride 0.9 % flush 5 mL 5 mL, Intravenous, EVERY 12 HOURS, First dose on Wed09/29/16 at 0830, Until Discontinued, Day of Surgery (Day of Procedure), Routine Given 09/29/2016 8:30 AM EDT 5 mLs documented in this encounter Care Teams Hybrid Tester Relationship Specialty Start Date End Date Radha Acuna MD [address] [place] [address] [place] [address] PCP - General 08/07/11 documented as of this encounter
--- OUTSIDE RECORDS SUMMARY | 2024-04-07 16:42 | XMS_ITS | Encounter Summary ---
[facility] [place] [address] Care Team Providers Care Gold Beater Name Role Phone Radha Acuna MD Primary Care Provider +1- [phone] Reason for Visit * Reason Onset Date Comments Follow-up 10/12/2016 Encounter Details Date Type Department Care Team (Late st Contact Info) Description 10/12/2016 Telephone Hematology [place] [id number] Myesha Urena Follow-up Social History Tobacco Use Types Packs/Day [...] Telephone Encounter - Myesha Urena, RN - 10/12/2016 7:51 AM EDT Follow up on recent call, regarding bone pain. RN spoke with patient who feels like she has turned the corner and states today is a better day. She states she had been having some diarrhea and nausea but it is resolved today. Her bone pain is also improving. She states she felt like these meds were trying to kill me. She did have a few questions: She states yesterday her skin started to break out with pimples andshe wondered if anything could be done regarding that. She also wondered if she could take probiotics. And she states her nasal passages have been dry and she wondered what she could do about that. RN discussed with patient that I would notify Dr. Gallegos of her concerns but that she should keep her face clean, probiotics are fine, and to try an over the counter saline mist for her dry nasalpassage. RN will call the patient back if Dr. Gallegos has further recommendations. Per Dr. Gallegos: the rash should improve in time and is likely related to the pertuzumab. If it worsens Dr. Gallegos is willing to prescribe topical clindamycin. RN notified patient and instructed her to monitor and notify the clinic if it worsens. Pt in agreement with plan and knows to call clinic with any concerns and/or questions. documented in this encounter Plan of Treatment Upcoming Encounters Date Type Department Care Team (Late st Contact Info) Description 06/30/2024 4:30 PM EDT Office Visit Hematology [place] [address] Shilpi Gallegos MD [facility] DR [place]EMAT[place]Y [place] [address] documented as of this encounter Visit Diagnoses Not on filedocumented in this encounter Care Teams Gold Beater Relationship Specialty Start Date End Date Radha Acuna MD [address] [place] [address] [place] MIGUEL [place] [address] PCP - General 08/07/11 documented as of this encounter
--- OUTSIDE RECORDS SUMMARY | 2024-04-07 16:42 | XMS_ITS | Encounter Summary ---
[place] [address] Care Team Providers Care Gear Hobber Operator Name Role Phone Radha Acuna MD Primary Care Provider +1- [phone] Reason for Referral * Diagnostic Test (Routine) - Closed Specialty Diagnoses / Procedures [facility] Referred To Contact Radiology Diagnoses Malignant neoplasm of right female breast, unspecified site of breast Procedures IR Biopsy Lymph Node IR All Biopsy Procedures IR Biopsy Lymph Node Ruby Negro MD [facility] [place] [address] [facility] [address] Referral ID Status Reason Start Date Expiration Date V isits Requested Visits Authorized [id number] Closed Specialty Service Requested 09/22/2016 09/22/2017 1 1 Reason for Visit * Diagnostic Test (Routine) - Closed Specialty Diagnoses / Procedures Referred By Clara cisneros Referred To Contact Radiology Diagnoses Malignant neoplasm of right female breast, unspecified site of breast Procedures IR Biopsy Lymph Node IR All Biopsy Procedures IR Biopsy Lymph Node Ruby Negro MD [facility] [place] [address] [place] [address] Referral ID Status Reason Start Date Expiration Date V isits Requested Visits Authorized [id number] Closed Specialty Service Requested 09/22/2016 09/22/2017 1 1 Encounter Details Date Type Department Care Team (Late st Contact Info) Description 10/02/2016 2:10 PM EDT - 10/02/2016 11:59 PM EDT Hospital En[place] [address] Ruby Negro MD Malignant neoplasm of right female breast, unspecified site of breast Discharge Disposition: Home [...] Sign Reading Time Taken Comments Blood Pressure 113/77 10/02/2016 4:00 PM EDT Pulse 65 10/02/2016 4:00 PM EDT Temperature 36.5 ??C (97.7 ??F) 10/02/2016 4:00 PM ED T Respiratory Rate 20 10/02/2016 4:00 PM EDT Oxygen Saturation 97% 10/02/2016 4:00 PM EDT Inhaled Oxygen Concentration - - Weight - - Height - - Body Mass Index - - documented in this encounter Discharge Instructions * Discharge Instructions* Eunice Cao RN - 10/02/2016 4:09 PM EDT [facility] Vascular and Interventional Radiology Biopsy Discharge Instructions ??? Lymph node biopsy: call your doctor immediately if you develop a sudden onset of weakness, increased pain or swelling at the biopsy site or heavy bleeding at the biopsy site. Activity And Diet: ??? Go home and rest quietly for the remainder of the day. You may resume your normal activities tomorrow. ??? Resume your usual diet after the procedure. ??? Do not drive, sign any important/legal documents, or make any important decisions for 24 hours following sedation medications. When to call your healthcare provider: ??? If you see any redness, swelling or drainage at the biopsy site. ??? If you develop chills. ??? If you have a fever greater than or equal to 101 degrees Fahrenheit. ??? If you develop pain around the biopsy site. Bandage: ??? Check the dressing/bandaid throughout the day for an increase in drainage. Keep the biopsy sitedry for 24 hours. Replace the bandaid as needed. You may shower 24 hours after the biopsy. Medication: ??? DO NOT take aspirin-containing products, ibuprofen, or blood-thinning medication for the next 24 hours unless your doctor says you may do so. ??? Generally you may use acetaminophen as needed for discomfort unless you have liver disease and are instructed not to take acetaminophen. Biopsy Results ??? The results of your biopsy should be available within 5 business days and will be reported to you by your primary ostomy care nurse or the clinician who ordered the biopsy. Please do not call us forresults as we will not have them. ??? If you have not been contacted by your clinician within 5 business days you should call that office for further information. When to call the Interventional Radiology Department: Please call with any questions or concerns. If it is during regular office hours, please call [phone]. If it is after regular office hours, or on weekends or holidays, please call [phone] and ask to speak to the Lead Pressman [employer] Printing inspector insulation for Interventional Radiology. You have received medication during your procedure to help lessen anxiety and keep you comfortable.These medications affect judgement and reaction time. We [...] of calcium and 1600iu of Vit D lidocaine (LIDODERM) 5 % Adhesive Patch, Medicated [...] as of this encounter Progress Notes * Shabnam Snyder RN - 09/29/2016 2:01 PM EDT ANGIO NURSING DATABASE Name: TRINA BALL Date of : 1980 AGE 36 y.o. Address: [address] [place] [address] (home) Mobile: Telephone Information: Referring Provider: Ruby Negro V REASON FOR VISIT: Where will study be performed? [facility] Reason for exam and clinical history: breast cancer. suspicious right cervical neck lymph node on ultrasound and exam. Exam/Procedure requested: US guided LN biopsy Is the patient ? Unknown Is the patient on anticoagulant / anitplatelet therapy ? No Anticoagulant/antiplatelet/herbal med. stopped on per MD order. Allergies Allergen Reactions ??? Aspirin Hives ??? Hydrocodone-Acetaminophen Hives ??? Tioconazole Pertinent PMH: Patient Active [...] US guided Cervical LN bx. No meds ? Laboratory Results: Lab Results Component Value [...] EDT Office Visit Hematology [place] [address] Shilpi Gallegos MD [facility] [address] [place] [address] documented as of this encounter Procedures Procedure Name Priority Date/Time Associated Diagnosis Comments NON-LINING LAYER FINAL REPORT Routine 10/02/2016 4:07 PM EDT IR BIOPSY LYMPH NODE (HEAD/NECK) Routine 10/02/2016 3:57 PM EDT Malignant neoplasm of right female breast, unspecified site of breast CYTOPATHOLOGY NON-GYNECOLOGICAL Routine 10/02/2016 3:21 PM EDT documented in this encounter Results * Non-Cnc Mill Operator Final Report (10/02/2016 4:07 PM EDT) Diagnosis Discussion [id number] ?Location: [facility] The signing pathologist has (i) examined the relevant preparation(s) for the specimen(s) and (ii) rendered or confirmed the diagnosis(es). . ? Non-Cnc Mill Operator Final DIAGNOSIS Negative for Malignancy Electronically signed by: ??Marotti MD, Miguel D Verified: ??10/06/2016 ?Pathologist DISCUSSION Lymph node, cervical (US-guided FNA): Abundant lymphoid cells (predominantly small lymphocytes) are present; consistent with lymph node sampling. Negative for metastatic carcinoma. Cell block material is scant, but correlates. CLINICAL INFORMATION Specimen Source : Lymph node, cervical (US-guided FNA, assisted) Pertinent Clinical Data and Significant Therapy: Breast cancer. Suspicious right cervical neck lymph node on ultrasound and exam. Clinical Impression: Lymph node biopsy Pertinent Radiologic Findings: (not provided) Gross Description: Received in Formalin approximately 45 mL total volume of cloudy, colorless fluid, with clots. Total Preparation: Diff-Quik 2; Pap Stain 2; Cell Block 1. 10/06/2016 9:28 AM EDT [facility] LYMPH NODE SPECIMEN / Unknown 10/02/2016 4:07 PM EDT 10/02/2016 4:07 PM EDT Idris Gorman MD PATHOLOGY/CYTOLOGY O RDERABLES [facility] [place] [id number] * IR Biopsy Lymph Node (10/02/2016 3:57 [...] at 10/05/2016 3:24 PM Ruby Daniel MD [facility] IR ORDERABLE S * Cytopathology Non-Gynecological (10/02/2016 3:21 PM EDT) AP Specimen 10/02/2016 3:21 PM EDT 10/02/2016 3:21 PM EDT Narrative [facility] - 10/02/2016 3:21 PM EDT Specimen requisition ordered. ??Separate Pathology report to follow Idris Gorman MD PATHOLOGY/CYTOLOGY O RDERABLES [facility] [place] [address] documented in this encounter Visit Diagnoses Diagnosis Malignant neoplasm of right female breast, unspecified site of breast documented in this encounter Care Teams Gear Hobber Operator Relationship Specialty Start Date End Date Radha Acuna MD [address] [place] [address] [place] [address] PCP - General 08/07/11 documented as of this encounter
--- OUTSIDE RECORDS SUMMARY | 2024-04-07 16:42 | XMS_ITS | Encounter Summary ---
Author Organization [facility] [place] [address] Care Team Providers Care Sanitation Superintendent Name Role Phone Radha Acuna MD Primary Care Provider [phone]- [phone] Encounter Details Date Type Department Care Team (Late st Contact Info) Description 12/01/2016 Telephone Hematology [place] [address] Myesha Urena Social History Tobacco [...] Telephone Encounter - Myesha Urena, RN - 12/01/2016 9:25 AM EDT ----- Message from Mandie Juarez sent at 11/30/2016 10:48 AM EDT ----- Regarding: short term disability Contact: Dr. Gallegos Pt. Trina called today because she needs to extend her short term disability. She said someone just needsto call and let her insurance know. Thanks Gertrude PENA spoke with customer energy specialist at [employer] [facility] who states they will fax the Attending Physician's Statement - Progress Report to be completed and faxed back to [facility] at Form completed, signed by and faxed to [facility] with supporting notes and test results. documented in this encounter Plan of Treatment Upcoming Encounters Date Type Department Care Team (Late st Contact Info) Description 06/30/2024 4:30 PM EDT Office Visit Hematology [place] [address] Shilpi Gallegos MD [facility] [address] [place] [address] documented as of this encounter Visit Diagnoses Not on filedocumented in this encounter Care Teams Sanitation Superintendent Relationship Specialty Start Date End Date Radha Acuna MD [address] [place] [address] [place] [address] PCP - General 08/07/11 documented as of this encounter
--- OUTSIDE RECORDS SUMMARY | 2024-04-07 16:42 | XMS_ITS | Encounter Summary ---
[place] [address] Care Team Providers Care Bakery Team Member Name Role Phone Radha Acuna MD Primary Care Provider [phone]- [phone] Encounter Details Date Type Department Care Team (Late Contact Info) Description 09/29/2016 Telephone Hematology [place] [address] Hannah Vega Social History Tobacco Use Types [...] encounter Miscellaneous Notes * Telephone Encounter - Hannah Vega - 09/29/2016 10:35 AM EDT Called to discuss genetic test results with Trina. Voice mailbox is full and not accepting new messages. documented in this encounter Plan of Treatment Upcoming Encounters Date Type Department Care Team (Late st Contact Info) Description 06/30/2024 4:30 PM EDT Office Visit Hematology [place] [address] Shilpi Gallegos MD [facility] DR [place]EMATOLOGY [place] [address] documented as of this encounter Visit Diagnoses Not on filedocumented in this encounter Care Teams Bakery Team Member Relationship Specialty Start Date End Date Radha Acuna MD [address] [place] [address] [place] [address] PCP - General 08/07/11 documented as of this encounter
--- OUTSIDE RECORDS SUMMARY | 2024-04-07 16:43 | XMS_ITS | Encounter Summary ---
Author Organization [facility] [place] [address] Care Team Providers Care Wrapper Selector Name Role Phone Soumya Membreno APRN Primary Care Provider [phone] Encounter Details Date Type Department Care Team (Late st Contact Info) Description 06/30/2010 3:45 PM EDT Office Visit Dermatology [address] [place] [address] Drive [address] [place], [place] [id number] Brian Naranjo MD [address], [facility] [place] [place] [address] Social History Tobacco Use Types Packs/Day Years Used Date Smoking Tobacco: Never Assessed Sex and Gender Information Value Date Recorded Sex Assigned at Female 02/09/2022 12:21 PM EDT Gender Identity Female 02/09/2022 12:21 PM EDT Sexual Orientation Straight 02/09/2022 12 :21 PM EDT documented as of this encounter Plan of Treatment Upcoming Encounters Date Type Department Care Team (Late st Contact Info) Description 06/30/2024 4:30 PM EDT Office Visit Hematology [place] [address] Shilpi Gallegos MD [facility] [place] [address] documented as of this encounter Visit Diagnoses Not on filedocumented in this encounter Care Teams Wrapper Selector Relationship Specialty Start Date End Date Soumya Membreno APRN [address] [place] [address] [place] [address] PCP - General 03/04/10 08/06/11 documented as of this encounter
--- OUTSIDE RECORDS SUMMARY | 2024-04-07 16:43 | XMS_ITS | Encounter Summary ---
Author Organization [facility] [place] [address] Care Team Providers Care Appliance Service Technician Name Role Phone Radha Acuna MD Primary Care Provider [phone]- [phone] Encounter Details Date Type Department Care Team (Latest Contact Info) Description 09/16/2016 7:05 AM EDT Laboratory Appointment Lab [address] [place] [address] Malignant neoplasm of right female breast, unspecified site of breast Social History Tobacco Use Types Packs/Day Years Used Date Smoking Tobacco: Never Sex and Gender Information Value Date Recorded Sex Assigned at Female 02/09/2022 12:21 PM EDT Gender Identity Female 02/09/2022 12:21 PM EDT Sexual Orientation Straight 02/09/2022 12 :21 PM EDT documented as of this encounter Plan of Treatment Upcoming Encounters Date Type Department Care Team (Late st Contact Info) Description 06/30/2024 4:30 PM EDT Office Visit Hematology [place] [address] Shilpi Gallegos MD [facility] DR [place] [address] documented as of this encounter Procedures Procedure Name Priority Date/Time Associated Diagnosis Comments HEMOGRAM Routine 09/16/2016 7:05 AM EDT Malignant neoplasm of right female breast, unspecified site of breast DIFFERENTIAL, AUTOMATED Routine 09/16/2016 7:05 AM EDT Malignant neoplasm of right female breast, unspecified site of breast CBC (WITH DIFF) Routine 09/16/2016 7:05 AM EDT Malignant neoplasm of right female breast, unspecified site of breast COMPREHENSIVE METABOLIC PANEL Routine 09/16/2016 7:05 AM EDT Malignant neoplasm of right female breast, unspecified site of breast documented in this encounter Results * Differential, Automated (09/16/2016 7:05 AM EDT) Neutrophil % 61.9 % [facility] Neutrophil Absolute 3.87 1.70 - 6.10 x10(3)/[facility] Lymph % 28.5 % [facility] Lymphocytes Abs 1.8 0.9 - 3.2 x10(3)/[facility] Monocyte % 7.5 % [facility] Monocyte Abs 0.5 0.3 - 0.9 x10(3)/[facility] Eos % 1.6 % [facility] Eosinophils Abs 0.1 0.0 - 0.4 x10(3)/[facility] Basophil % 0.0 % [facility] Baso Absolute 0.0 0.0 - 0.1 x10(3)/[facility] Immature Gran % 0.50 % [facility] Comment: Immature granulocytes(IG's)percentage and absolute count will include metamyelocytes, myelocytes, and promyelocytes. Blood smears from CBCs yielding IG's will be scanned manually for concordance. If this scan disagrees with the automated IG or if promyelocytes are noted, a manual differential will be performed. Immature Gran Absolute 0.03 0.00 - 0.04 x10(3)/[facility] Blood specimen (specimen) 09/16/2016 7:05 AM EDT 09/16/2016 7:15 AM EDT Narrative Resulting Agency Comment Spec In Lab Ewa Mcnamara MD HEMATOLOGY ORDERABL ES [facility] [place] [address] * Hemogram (09/16/2016 7:05 AM EDT) White Blood Cell 6.2 4.0 - 9.5 x10(3)/[facility] Red Blood Cell 4.57 4.00 - 5.21 x10(6)/[facility] Hemoglobin 14.0 11.7 - 15.5 gm/dL [facility] Hematocrit 40.5 35.7 - 45.8 % [facility] Mean Cell Volume 88.6 82.6 - 94.4 fL [facility] Mean Cell Hemoglobin 30.6 27.1 - 32.0 pg [facility] Mean Cell Hemoglobin Concentration 34.6 31.7 - 35.0 gm/dL [facility] Platelet 218 145 - 357 x10(3)/[facility] RDW Standard Deviation 37.6 37.0 - 46.0 [facility] RDW coefficient of variation 11.7 11.5 - 14.1 % [facility] Mean Platelet Volume 10.3 7.6 - 12.9 fL [facility] NRBC% auto 0.0 % [facility] NRBC Absolute 0.000 0.000 - 0.000 x10(3)/[facility] Blood specimen (specimen) 09/16/2016 7:05 AM EDT 09/16/2016 7:15 AM EDT Narrative Resulting Agency Comment Spec In Lab Ewa Mcnamara MD HEMATOLOGY ORDERABL ES [facility] [place] [address] * Comprehensive metabolic panel (non-fasting) (09/16/2016 7:05 AM EDT) Pathologist [facility] Glucose 94 65 - 199 mg/dL [facility] Comment:Diabetes: >=200 mg/d L plus symptoms Blood Urea Nitrogen 13 8 - 18 mg/dL [facility] Creatinine 0.75 0.70 - 1.20 mg/dL [facility] Comment: Please note that the pediatric reference intervals supplied above were not validated at [facility]. Results from pediatric patients should be interpreted in conjunction to the patient's age, height and muscle mass. Sodium 141 135 - 145 mmol/L [facility] Potassium 3.6 3.5 - 5.0 mmol/L [facility] Comment: Please note: ??Patients with WBC >100,000 may have falsely elevated Potassium levels. ??For accurate Potassium quantification in these patients send serum separator tube (gold top) for subsequent determinations. ??Contact the Clinical Chemistry Laboratory if there are any questions. Chloride 101 98 - 107 mmol/L [facility] Carbon Dioxide 25 22 - 31 mmol/L [facility] Anion Gap 15 5 - 15 mmol/L [facility] Calcium 9.8 8.5 - 10.5 mg/dL [facility] Protein, Total 7.9 6.1 - 8.0 gm/dL [facility] Albumin 4.9 3.2 - 5.2 gm/dL [facility] Aspartate Aminotransferase 22 0 - 30 unit/L [facility] Alanine Aminotransferase 13 0 - 30 unit/L [facility] Alkaline Phosphatase 64 40 - 104 unit/L [facility] Bilirubin, Total 0.5 0.2 - 1.3 mg/dL [facility] Bilirubin, Direct 0.1 0.0 - 0.3 mg/dL [facility] Est Glomerular Filtration Rate >60 >=60 [facility] Comment: This estimated GFR (eGFR) [...] the following links into your internet browser. [email or web address] Blood specimen (specimen) 09/16/2016 7:05 AM EDT 09/16/2016 7:15 AM EDT Narrative Resulting Agency Comment Spec In Lab Ewa Mcnamara MD CHEMISTRY ORDERABLE S [facility] [place] [address] documented in this encounter Visit Diagnoses Diagnosis Malignant neoplasm of right female breast, unspecified site of breast documented in this encounter Care Teams Appliance Service Technician Relationship Specialty Start Date End Date Radha Acuna MD [address] [place] [address] [place] [address] PCP - General 08/07/11 documented as of this encounter
--- OUTSIDE RECORDS SUMMARY | 2024-04-07 16:43 | XMS_ITS | Encounter Summary ---
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 This has been referred to interventional radiology for consideration of biopsy. Narrative 09/22/2016 1:57 PM EDT EXAMINATION: MAMMO ULTRASOUND OF THE NECK CLINICAL HISTORY: new breast cancer patient. ??2cm lymph node in the right cervical neck, just posterior to SCM. marked., please biopsy if abnormal. TECHNIQUE: I performed high-resolution ultrasound of the base of the skull/superior posterior high cervical region. COMPARISON: None FINDINGS: There is an oval homogeneously hypoechoic circumscribed solid mass demonstrating internal vascularity at the superior posterior cervical region measuring 1.6 cm in maximal diameter. The cortex measures 0.2 cm in thickness without cortical excrescence. 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
--- OUTSIDE RECORDS SUMMARY | 2024-04-07 16:43 | XMS_ITS | Encounter Summary ---
[place] [address] Care Team Providers Care Apparel Cutter Name Role Phone Radha Acuna MD Primary Care Provider [phone] Reason for Referral * Physical Therapy (Routine) - Canceled Specialty Diagnoses / Procedures Referred By Clara t Referred To Contact Physical Therapy Diagnoses Invasive ductal carcinoma of right breast Frantz Martínez MD [facility] [place] [address] [facility] [place] [address] Referral ID Status Reason Start Date Expiration Date V isits Requested Visits Authorized Canceled Evaluate and Treat 09/25/2016 09/25/2017 1 1 Reason for Visit * Reason Comments Advice Only breast recon consult * Consultation (Routine) - Specialty Diagnoses / Procedures Referred By Contgabriela t Referred To Contact Plastic Surgery Diagnoses RECON CONSULT Procedures CONSULT Ewa Mcnamara MD [facility] [place] [address] Frantz Martínez MD [facility] [place] [address] Referral ID Status Reason Start Date Expiration Date V isits Requested Visits Authorized 09/21/2016 09/21/2017 1 1 Encounter Details Date Type Department Care Team (Late st Contact Info) Description 09/21/2016 3:00 PM EDT Office [place] [address] Frantz Martínez MD [facility] [place] [address] Invasive ductal carcinoma of right breast Social [...] - Inhaled Oxygen Concentration - - Weight 51.9 kg (114 lb 6.7 oz) 09/21/2016 2:34 PM EDT per pt Height 155.3 cm (5' 1.14) 09/21/2016 2 :34 PM EDT per 09/16/16ppt Body Mass Index 21.52 09/21/2016 2:34 PM EDT documented in this encounter Patient Instructions * Patient Instructions* Carol Aragon RN - 09/21/2016 3:00 PM EDT You were given written and verbal preoperative instructions today. To prepare for your upcoming surgery, please review the Pre-Operative Instruction brochure that youwere given at today's appointment; it's the pink and white booklet. Remember to do the pre op wash, with Hibiclens, as instructed. You were given a tube of Bactroban - remember to begin use 5 days before surgery. The usage log is included below. Nasal carriage of Staphylococcus aureus including methicillin-resistant [...] Beginning five (5) days before your surgery, apply ointment to both nostrils twice daily: 1) Wash [...] 2 Day 3 Day 4 Day 5 You will need a marine engine driver. Expect a call from the nurses from the Same Day Dept the business day before surgery to instruct you in the time to arrive as well as when to stop eating and drinking. Feel free to call our office [phone] if you have any questions or concerns. We monitor the phones from 8-5 Wednesday through Wednesday. documented in this encounter Progress Notes * Frantz Martínez MD - 09/21/2016 3:00 PM EDT Plastic Surgery Consultation Note Provider: Frantz Martínez MD PCP: Radha Acuna MD Requesting surgeon: Ruby Negro MD CC: To discuss breast reconstruction HPI: Her breast surgeon requested this consultation for Trina Frances, a 36 y.o. woman with right breast cancer, to discuss options for breast reconstruction. She was accompanied by her Rudi for today's visit. Her breast cancer history began with an abnormal mammogram in right breast. Further imaging was ordered and a biopsy revealed IDC/DCIS. She was then referred to Dr. Negro who discussed a mastectomy, versus breast conservation and she is now considering mastectomy, sentinel node biopsy and possible axillary dissection.Radiation may be planned and chemotherapy may be planned. Genetic testing is pending. She is currently planned for unilateral mastectomy but pending on her genetic testing may have bilateral mastectomies. She has had no other breast surgeries. She reports having researched breast reconstruction online and having read there causal connections with breast implants and autoimmune disease. She wonders about the possibility of mold development in the implant over time. She desires reconstruction only as long as it is safe. She is strongly requesting no resident involvement in her surgery. She has been interested in augmenting her breast size in the past and may wish to do so as part of her reconstruction. She wears an A cup bra. 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 She is and has had two children. The [employer] informational link on breast reconstruction was received: Yes. And viewed: Yes If viewed, was the video helpful yes Pertinent findings to emphasize are: PLASTICS BREAST QUESTIONS 09/20/2016 Shoulder pain? None of the time Difficulty sleeping because of discomfort in your breast area? None of the time Neck pain? None of the time Arm pain? None of the time Past Medical History: Diagnosis Date ??? Environmental allergies ??? IgA deficiency ??? Immune deficiency disorder ??? Multiple food allergies ??? Placenta previa ??? Vitiligo Past Surgical History: Procedure Laterality Date ??? APPENDECTOMY ??? SECTION ??? NASAL SINUS SURGERY ??? TONSILLECTOMY Social History Social History ??? [...] Neg Hx ??? Ovarian Cancer Neg Hx Examination: Ht 155.3 cm (5' 1.14) Comment: per 09/16/16ppt Wt 51.9 kg (114 lb 6.7 oz) Comment: per pt LMP 09/16/2016 (Exact Date) BMI 21.52 kg/m2 General: On my examination today, Ms. Trina [...] associated with vitiligo on chest and abdomen Anatomic Breast Measurements: Right Left Notch-nipple (cm) 19 19 IMF to nipple (cm) 7 6.5 Estimated breast volume (cc) 175 150 Base Diameter (cm) 12.5 12.5 Impression: Trina Frances is a 36 y.o. patient with new diagnosis of right breast cancer. After reviewing all options for breast reconstruction or symmetry, she is strongly inclined to pursue: Question: Right Left Plan Surgical treatment requested? X Artoura tissue filer metal patterns placement Delayed inset 3-4 days later? Symmetry Surgery? X May require mastopexy at second stage No Reconstruction Surgical Delay with ligation necessary [...] two staged with tissue expanders and alloderm. In unilateral cases,we also discussed the possibility of a contralateral (implant or mastopexy or reduction mammaplasty) to improve her symmetry in a second stage. Prior to her visit today she watched the [employer] informational link on breast reconstruction. I also [...] informed decision 5. Recommended web sites including: www.surgery.med.[facility] www.rysjbvbarphcsu769.com www.breastimplantsafety.org www.breasthealthonline.com 6. Brochure on the Section of Plastic Surgery's policy on cigarette smoking 7. My business card including contact information and information on how to access myD-H. The risks of these procedures were covered either in the [employer] link , the informational materials and/or in [...] the safety of silicone implants and the [employer] brochure: Silicone implants, making an informed decision. We reviewed the general risksof implant reconstruction including: upper pole fullness; asymmetry; implant rupture, migration, infection, or contracture; visible rippling or waviness from the implant; likely need for revision or further surgery in the future. She is an excellent candidate for direct to implant reconstruction. I discussed there are absolutely no causal associations between silicone implants and autoimmune disease, and that this postulationhas been comprehensively studied, assessed, and disproven. Silicone granulomas or implant associated lymphoma are possible but extremely rare, and the simple treatment would be implant removal. I carefully reviewed the surgical risks involved including infection, scarring, bleeding, and breast asymmetry. Shaped and round implant options were discussed, I recommended a shaped gel implant given herthin frame. I discussed this would give her a more natural appearance and diminish the step off between any round implant and her superior pole. I advised if she wishes for a larger breast she would require a tissue filer metal patterns. She desires an intial tissue filer metal patterns reconstruction, planning for transition to implant and possible mastopexy at a second stage. I will communicate this plan to Dr. Radha Acuna MD, and her general surgeon, Dr. Negro. Duration: 3.5 hours Timeframe: coordinate Anticipate 1 night over night admission Coordinated with: Dr. Negro Procedure: Breast reconstruction CPT: Disaster Recovery Specialist: [id number] Alloderm: [id number] Surgical site: Breast Side: Right Anesthesia: General or GETA with muscle relaxation (for TRAM flap/filer metal patterns/implant recon) Follow up: 7 days coordinated with Physical therapy PAT: No Expanders needed: 2x High Profile Disaster Recovery Specialist Vol. Width Proj. Catalog # 225 cc 10 cm 5.2 cm [id number] Round Moderate Plus Profile (Main OR does not stock 175-475cc) Order# Vol. Diam. Proj. Max. Fill [id number] 175cc 9.5cm 3.5cm 210cc [id number] 225cc 10.4cm 3.8cm 270cc I, Karin Tan, am acting as scribe for Dr. Martínez. All work documented was performed by Dr. Martínez. ???I performed the above scribed service and agree with the accuracy of the note?? FRANTZ MARTÍNEZ MD * Carol Aragon RN - 09/21/2016 3:00 PM EDT Pre-Op Teaching for Surgery Surgery: right breast recon with filer metal patterns Written and verbal pre-operative instructions given and reviewed with patient and her , Ge. Patient was advised to discontinue use of NSAIDS and aspirin products (unless otherwise advised by patient's PCP/Industrial Robotics Mechanic for cardiac symptoms), fish oil, Vitamin E and herbal supplements for 14 days prior to surgery, to perform the pre-op scrub, and to coordinate a ride home following surgery. Smoking status and medications were further reviewed to rule out/address current use of Nicotine, Coumadin, Plavix, Estrogen or Tamoxifen. She was advised that the nurses from the Same Day Dept from would be calling the day before surgeryto instruct in time to arrive as well as dietary restrictions. Discussed and answered all questionsincluding post op course, possible use of drains, and activity limitations. Photos taken with signed consent. Trina was given a tube of Bactroban ointment and advised how to use it beginning 5 days before surgery. She was also given the application log. Patient was given 2 packets of Hibiclens soap along with instructions for its use pre op. She was told to call the clinic for any questions or concerns prior to surgery. documented in this encounter Plan of Treatment Upcoming Encounters Date Type Department Care Team (Late st Contact Info) Description 06/30/2024 4:30 PM EDT Office Visit Hematology [place] [address] Shilpi Gallegos MD [facility] [place] [address] Scheduled Referrals Name Type Priority Associated Diagnoses Orde r Schedule Referral to Physical Therapy Outpatient Referral Routine Invasive ductal carcinoma of right breast Ordered: 09/25/2016 documented as of this encounter Visit Diagnoses Diagnosis Invasive ductal carcinoma of right breast documented in this encounter Care Teams Apparel Cutter Relationship Specialty Start Date End Date Radha Acuna MD [address] [place] [address] [place] [address] PCP - General 08/07/11 documented as of this encounter
--- OUTSIDE RECORDS SUMMARY | 2024-04-07 16:43 | XMS_ITS | Encounter Summary ---
Author Organization [facility] [place] [address] Care Team Providers Care Diesel Stationary Engineer Name Role Phone Radha Acuna MD Primary Care Provider [phone] Encounter Details Date Type Department Care Team (Late st Contact Info) Description 10/22/2015 8:30 AM EDT Office Visit Dermatology at [place] [address] [facility] [place] [address] Brian Naranjo MD [address] [facility] [address] A DERMATOLOGY [place], [place] [id number] Vitiligo Social History Tobacco Use Types Packs/Day Years Used Date Smoking Tobacco: Never Sex and Gender Information Value Date Recorded Sex Assigned at Female 02/09/2022 12:21 PM EDT Gender Identity Female 02/09/2022 12:21 PM EDT Sexual Orientation Straight 02/09/2022 12 :21 PM EDT documented as of this encounter Progress Notes * Brian Naranjo MD - 10/22/2015 8:30 AM EDT PROBLEM: Vitiligo. Trina follows up and it has been five years since I saw her last. She now has two children with her, Rudi and Tracie. Her vitiligo is again flaring. She has not used a light unit. She is not sure how to use it and would like my instruction again. We provided her with a [employer], Model 2800, narrow band UVB unit back in July of 2009 which was successful when she used it, but she has not for some time. Physical examination reveals patches of vitiligo widely on the dorsum of her feet, her wrists, her arms, her legs, and on her torso. ASSESSMENT AND PLAN: Vitiligo. A. We will supply patient with order for new bulbs for her [employer], Model 2800, narrow band UVB light unit. B. Instructions given from the manual on how to use appropriately for type 2 skin, starting at 1 minute and 12 seconds on a daily dosing base, and advancing up each week by 8 seconds to a goal of 4 minutes. C. Explained she is to treat first one side, then treat the other side. D. Wear goggles while doing this. E. Explained it will take about 75 treatments to see full benefit but that benefit will start before that. F. Patient asked about vitamin deficiency being a cause of vitiligo, and I explained that this is the case. Asked her to check with her PCP regarding a vitamin D level and appropriate lab testing. Patient asked about Coenzyme Q10 and I said, while this has not been tested and taking supplemental vitamins will not hurt, but I doubt they will be particularly beneficial. Return to clinic here for checkup on her progress as needed. cc: Radha Acuna MD documented in this encounter Plan of Treatment Upcoming Encounters Date Type Department Care Team (Late st Contact Info) Description 06/30/2024 4:30 PM EDT Office Visit Hematology [place] [address] Shilpi Gallegos MD [facility] [address] [place] [address] documented as of this encounter Visit Diagnoses Diagnosis Vitiligo documented in this encounter Care Teams Diesel Stationary Engineer Relationship Specialty Start Date End Date Radha Acuna MD [address] [place] [address] [place] [address] PCP - General 08/07/11 documented as of this encounter
--- OUTSIDE RECORDS SUMMARY | 2024-04-07 16:43 | XMS_ITS | Encounter Summary ---
Author Organization [facility] [place] [address] Care Team Providers Care Civil Defense Director Name Role Phone Soumya Membreno APRN Primary Care Provider [phone] Encounter Details Date Type Department Care Team (Late st Contact Info) Description 04/10/2010 1:15 PM EST Office Visit Dermatology [address] [place] [address] [address] [place], [place] [address] Brian Naranjo MD [address], [facility] [place] [address] Social History Tobacco Use Types Packs/Day Years [...] EDT Office Visit Hematology [place] [address] Shilpi Gallegos MD [facility] HEMATOLOGY [place] [address] documented as of this encounter Visit Diagnoses Not on filedocumented in this encounter Care Teams Civil Defense Director Relationship Specialty Start Date End Date Soumya Membreno APRN [address] [place] [address] [place] [address] PCP - General 03/04/10 08/06/11 documented as of this encounter
--- OUTSIDE RECORDS SUMMARY | 2024-04-07 16:43 | XMS_ITS | Encounter Summary ---
Author Organization [facility] [place] [address] Care Team Providers Care Scrap Metal Collector Name Role Phone Radha Acuna MD Primary Care Provider [phone]- [phone] Reason for Visit * Reason Comments Nausea Encounter Details Date Type Department Care Team ([facility] Contact Info) Description 02/05/2012 6:08 PM EDT - 02/05/2012 11:31 PM EDT [place] [address] Leonardo Chicas MD Nausea Discharge Disposition: Home Social History Tobacco Use Types Packs/Day Years Used Date Smoking Tobacco: Never Sex and Gender Information Value Date Recorded Sex Assigned at Female 02/09/2022 12:21 PM EDT Gender Identity Female 02/09/2022 12:21 PM EDT Sexual Orientation Straight 02/09/2022 12 :21 PM EDT documented as of this encounter Last Filed Vital Signs Vital Sign Reading Time Taken Comments Blood Pressure 120/80 02/05/2012 11:29 PM EDT Pulse 72 02/05/2012 11:29 PM EDT Temperature 36.6 ??C (97.9 ??F) 02/05/2012 11:29 PM E DT Respiratory Rate 16 02/05/2012 11:29 PM EDT Oxygen Saturation 98% 02/05/2012 11:29 PM EDT Inhaled Oxygen Concentration - - Weight - - Height - - Body Mass Index - - documented in this encounter Discharge Instructions * Discharge Instructions* Angely Bull - 02/05/2012 11:16 PM EDT Take zofran as needed for nausea. Follow-up with your PCP. Drink plenty of fluids. Return to the emergency department for high fever, inability to keep food and fluids down due to nausea/vomiting. documented in this encounter Medications at Time of Discharge Medication Sig Dispensed Refills Start Date End Date ondansetron (ZOFRAN ODT) 4 mg oral disintegrating tablet Take 1-2 tablets by mouth every 8 hours as needed for Nausea. 12 tablet 1 02/05/2012 10/22/2015 cetirizine (ZYRTEC) 10 mg tablet 10/02/2008 06/06/2019 Norgestimate-Ethinyl Estradiol (ORTHO TRI-CYCLEN LO) 0.18/0.215/0.25 mg-25 mcg Tab 10/02/2008 10/22/2015 fexofenadine (LAWRENCE) 180 mg tablet 180 MG = 1 Tablet(s), PO, Once daily in AM 10/02/2008 10/22/2015 hydrOXYzine (ATARAX) 25 mg tablet 2 Tablet(s), PO, QHS 10/02/2008 10/22/2015 documented as of this encounter ED Notes * Leonardo Chicas MD - 02/05/2012 11:05 PM EDT Chief Complaint Patient presents with ??? Nausea HPI Comments: Trina Javier is 31 y/o woman with PMH significant for IgA deficiency who c/o worseningbody aches, nausea, and fatigue since being given pneumovax three days ago. She reports being unable to eat today. She denies fever, chills, cough, SOB, vomiting, rash, swelling. The history is provided by the patient. Allergies Allergen Reactions ??? Aspirin CIS - Hives ??? Hydrocodone-acetaminophen CIS - Hives ??? Tioconazole Review of Systems Constitutional: Positive for fatigue. Negative for fever and chills. HENT: Negative. Eyes: Negative. Negative for photophobia and visual disturbance. Respiratory: Negative. Negative for cough and shortness of breath. Cardiovascular: Negative. Negative for chest pain and palpitations. Gastrointestinal: Positive for nausea. Negative for vomiting, abdominal pain, diarrhea, constipation and blood in stool. Genitourinary: Negative. Negative for dysuria, urgency, hematuria and pelvic pain. Musculoskeletal: Positive for myalgias and arthralgias. Skin: Negative. Negative for rash. Neurological: Positive for weakness (generalized). Negative for dizziness and light-headedness. Hematological: Negative. Psychiatric/Behavioral: Negative. Physical Exam Nursing note and vitals reviewed. Constitutional: She is oriented to person, place, and time. She appears well- developed and well-nourished. No distress. HENT: Head: Normocephalic and atraumatic. Eyes: Conjunctivae are normal. No scleral icterus. Cardiovascular: Normal rate, regular rhythm, normal heart sounds and intact distal pulses. Exam reveals no gallop and no friction rub. No murmur heard. Pulmonary/Chest: Effort normal and breath sounds normal. No respiratory distress. She has no wheezes. She has no rales. She exhibits no tenderness. Abdominal: Soft. Bowel sounds are normal. She exhibits no distension and no mass. No tenderness. She has no rebound and no guarding. Neurological: She is alert and oriented to person, place, and time. Skin: Skin is warm and dry. She is not diaphoretic. Psychiatric: She has a normal mood and affect. Procedures MDM ED Course: Ms. Javier was administered 2L normal saline and zofran for nausea. Her labs revealed elevated white count to 15 and left shift to 78%. Otherwise exam is unremarkable and vitals are within normal range. She is discharged to home with prescription for zofran and is encouraged to return if symptoms worsen. She is advised to follow up with her PCP. Angely Bull MD Resident 02/06/12 [id number] I have personally seen and examined the patient. I reviewed the patient with Dr. Bull and agree with the meraz findings and plan. The patient has no localizing signs or symptoms. She is afebrile. Leonardo Chicas MD 02/09/12 [id number] documented in this encounter Miscellaneous Notes * Discharge Summary - Provider, Scanning - 02/08/2012 9:48 AM EDT * Miscellaneous - Provider, Scanning - 02/05/2012 10:04 PM EDT * ED Triage - Ashley Torres RN - 02/05/2012 6:29 PM EDT Patient here with complaints of nausea, weakness, body aches, not eating or drinking and feeling terrible after getting the pneumovaccine on Wednesday. Her PCP told her to come and be seen due to her compromised immune system. Patient works here and is alert and oriented X 3. documented in this encounter Plan of Treatment Upcoming Encounters Date Type Department Care Team (Late st Contact Info) Description 06/30/2024 4:30 PM EDT Office Visit Hematology [place] [address] Shilpi Gallegos MD [facility] [address] [place] [address] documented as of this encounter Procedures Procedure Name Priority Date/Time Associated Diagnosis Comments POCT URINE DIPSTICK STAT 02/05/2012 9 :15 PM EDT BASIC METABOLIC PANEL Routine 02/05/2012 9:03 PM EDT DIFFERENTIAL, AUTOMATED STAT 02/05/2012 8:15 PM EDT CBC (WITH DIFF) STAT 02/05/2012 8:15 PM EDT documented in this encounter Results * POCT urine dipstick (02/05/2012 9:15 PM EDT) POC Sp [place] 1.010 1.002 - 1.030 POC pH, UA 6 5.0 - 8.5 POC Leuk, UA neg Negative - Negative POC Nitrite, UA neg Negative - Negative POC Protein, UA neg Negative - Negative mg/dL POC Glucose, UA normal Normal - Normal mg/dL POC Ketone, UA pos Negative - Negative POC Urobil, UA normal 0.2 - 1.0 mg/dL POC Bili, UA neg Negative - Negative POC Blood, UA neg Negative - Negative yolis/uL Leonardo Chicas MD POINT OF CARE TEST ORDERABLES * (ABNORMAL) Basic Metabolic Panel (non-fasting) (02/05/2012 9:03 PM EDT) Glucose 71 60 - 199 mg/dL CERNER MILLENNIUM Comment:Diabetes: >=200 mg/d L plus symptoms Blood Urea Nitrogen 10 8 - 18 mg/dL CERNER MILLENNIUM Creatinine 0.50(L) 0.70 - 1.20 mg/dL CERNER MILLENNIUM Comment: Please note that the pediatric reference intervals supplied above were not validated at [facility] [place] Results from pediatric patients should be interpreted in conjunction to the patient's age, height and muscle mass. Sodium 135 135 - 145 mmol/L CERNER MILLENNIUM Potassium 3.8 3.5 - 5.0 mmol/L CERNER MILLENNIUM Comment: Please note: ??Patients with WBC >100,000 may have falsely elevated Potassium levels. ??For accurate Potassium quantification in these patients send serum separator tube (gold top) for subsequent determinations. ??Contact the Clinical Chemistry Laboratory if there are any questions. Chloride 103 98 - 107 mmol/L CERNER MILLENNIUM Carbon Dioxide 19(L) 22 - 31 mmol/L CERNER MILLENNIUM Anion Gap 13 5 - 15 mmol/L CERNER MILLENNIUM Calcium 8.5 8.5 - 10.5 mg/dL CERNER MILLENNIUM Est Glomerular Filtration Rate >60 >=60 CERNER MILLENNIUM Comment: The National Kidney Disease Education Program (NKDEP) has recommended all laboratories report estimated GFR (eGFR) along with plasma creatinine measurements to assist you with recognition of early kidney disease. Caveats: ??Plasma creatinine should be at steady-state (unchanged within the past week). For patients multiply eGFR by 1.2. The MDRD equation was developed using patients between the ages of 18 and 70 years. ?? The MDRD equation has not been validated for patients < 18 years of age and should not be used to assess renal function in the pediatric population. ??The MDRD eGFR equation will also overestimate the true GFR of patients above the age of 70. ??This overestimation is variable but increases with age. At present, NKDEP does NOT recommend using the MDRD equation for drug dosing purposes and pharmacists should continue to use their current dosing methods. In addition, numerical eGFR values greater than 60 ml/min/1.73 square meters should be treated as > 60, and not an exact number due to greater inaccuracies at these higher values. Per NKDEP, they classify normal renal function as any GFR >60ml/min/1.73 square meters; chronic kidney disease when GFR <60, and renal failure when GFR <15. ??This calculation may not be valid for patients with atypical muscle mass (very lean or obese), acute renal failure, and in patients with diabetic kidney disease. References: http://nkdep.nih.gov/resources/NKDEP_Suggestn4Labs_0606_508.pdf http://www.kidney.org/professionals/kls/pdf/faq_gfr.pdf Nikki K, Anthony NA, Edith AK, Yasmany TS, Yakelin AD, Rose LEXI. Relative performance of the MDRD and CKD-EPI equations for estimating glomerular filtration rate among patients with varied clinical presentations. Clin J Am Soc Nephrol;6:1963-72. Blood specimen (specimen) 02/05/2012 9:03 PM EDT 02/05/2012 9:10 PM EDT Narrative Resulting Agency Comment Spec In Lab Leonardo Chicas MD CHEMISTRY ORDERABLE S SAMANTHA ALANIZIUM * (ABNORMAL) DIFFERENTIAL, AUTOMATED (02/05/2012 8:15 PM EDT) Neutrophil % 78.5(H) 34.0 - 71.0 % CERNER MILLENNIUM Neutrophil Absolute 12.36(H) 1.50 - 6.30 x10(3)/mc L CERNER MILLENNIUM Lymph % 13.6(L) 19.0 - 53.0 % CERNER MILLENNIUM Lymphocytes Abs 2.2 1.0 - 3.6 x10(3)/mc L CERNER MILLENNIUM Monocyte % 7.5 4.0 - 13.0 % CERNER MILLENNIUM Monocyte Abs 1.2(H) 0.2 - 1.0 x10(3)/mc L CERNER MILLENNIUM Eos % 0.0 0.0 - 7.0 % CERNER MILLENNIUM Eosinophils Abs 0.0 0.0 - 0.5 x10(3)/mc L CERNER MILLENNIUM Basophil % 0.1 0.0 - 2.0 % CERNER MILLENNIUM Baso Absolute 0.0 0.0 - 0.2 x10(3)/mc L CERNER MILLENNIUM Immature Gran % 0.30 0.00 - 0.66 % CERNER MILLENNIUM Comment: Immature granulocytes(IG's)percentage and absolute count will include metamyelocytes, myelocytes, and promyelocytes. Blood smears from CBCs yielding IG's will be scanned manually for concordance. If this scan disagrees with the automated IG or if promyelocytes are noted, a manual differential will be performed. Immature Gran Absolute 0.05 0.00 - 0.05 x10(3)/mc L CERNER MILLENNIUM Blood specimen (specimen) 02/05/2012 8:15 PM EDT 02/05/2012 8:21 PM EDT Leonardo Chicas MD HEMATOLOGY ORDERABL ES CERNER JOHNENNIUM * (ABNORMAL) CBC (with Diff) (02/05/2012 8:15 PM EDT) White Blood Cell 15.8(H) 4.0 - 10.0 x10(3)/mc L CERNER MILLENNIUM Red Blood Cell 4.36 3.93 - 5.22 x10(6)/mc L CERNER MILLENNIUM Hemoglobin 13.6 11.2 - 15.7 gm/dL CERNER MILLENNIUM Hematocrit 39.1 34.0 - 45.0 % CERNER MILLENNIUM Mean Cell Volume 89.7 79.0 - 94.0 fL CERNER MILLENNIUM Mean Cell Hemoglobin 31.2 26.6 - 32.2 pg CERNER MILLENNIUM Mean Cell Hemoglobin Concentration 34.8 32.0 - 36.5 gm/dL CERNER MILLENNIUM Platelet 158 145 - 370 x10(3)/mc L CERNER MILLENNIUM RDW Standard Deviation 38.9 35.0 - 46.0 fL [facility] RDW coefficient of variation 12.0 10.9 - 14.4 % SAMANTHA MATSON Mean Platelet Volume 10.5 9.0 - 12.0 fL SAMANTHA MATSON Blood specimen (specimen) 02/05/2012 8:15 PM EDT 02/05/2012 8:21 PM EDT Narrative Resulting Agency Comment Spec In Lab Leonardo Chicas MD HEMATOLOGY ORDERABL ES [facility] documented in this encounter Visit Diagnoses Diagnosis Nausea Nausea alone documented in this encounter Administered Medications Inactive Administered Medications - up to 3 most recent administrations Medication Order MAR Action Action Date Dose Rate Site ondansetron (ZOFRAN) injection 4 mg 4 mg, Intravenous, ONCE, 1 dose, On Wed02/05/12 at 2115, STAT Given 02/05/2012 9:15 PM EDT 4 mg ondansetron (ZOFRAN-ODT) oral disintegrating tablet 4 mg 4 mg, Oral, ONCE, 1 dose, On Wed02/05/12 at 2345, STAT Given 02/05/2012 11:45 PM EDT 4 mg sodium chloride 0.9% 1,000 mL IV bolus 1 L, Intravenous, ONCE, 1 dose, On Wed02/05/12 at 2014 Given 02/05/2012 8:15 PM EDT 1 L sodium chloride 0.9% 1,000 mL IV bolus 1 L, Intravenous, ONCE, 1 dose, On Wed02/05/12 at 2114 Given 02/05/2012 9:15 PM EDT 1 L documented in this encounter Active and Recently Administered Medications Times are shown in EDT. Scheduled Medication Order 02/03/2012 02/04/2012 02/05/2012 ondansetron (ZOFRAN) injection 4 mg (COMPLETED) 4 mg, Intravenous, ONCE, 1 dose, On Wed02/05/12 at 2115, STAT 2115 (Given - Provid er: Callum Witt RN) ondansetron (ZOFRAN-ODT) oral disintegrating tablet 4 mg (COMPLETED) 4 mg, Oral, ONCE, 1 dose, On Wed02/05/12 at 2345, STAT 2345 (Given - Provid er: Callum Witt RN) sodium chloride 0.9% 1,000 mL IV bolus (COMPLETED) 1 L, Intravenous, ONCE, 1 dose, On Wed02/05/12 at 2015 2015 (Given - Provid er: Callum Witt RN) sodium chloride 0.9% 1,000 mL IV bolus (COMPLETED) 1 L, Intravenous, ONCE, 1 dose, On Wed02/05/12 at 2115 2115 (Given - Provid er: Callum Witt RN) documented in this encounter Care Teams Scrap Metal Collector Relationship Specialty Start Date End Date Radha Acuna MD [address] [place] [address] [place] [address] PCP - General 08/07/11 documented as of this encounter
--- OUTSIDE RECORDS SUMMARY | 2024-04-07 16:43 | XMS_ITS | Encounter Summary ---
Author Organization [facility] [place] [address] Care Team Providers Care Deputy Sheriff Lieutenant Name Role Phone Radha Acuna MD Primary Care Provider +1- [phone] Reason for Visit * Consultation (Routine) - Closed Specialty Diagnoses / Procedures Referred By Clara cisneros Referred To Contact Hematology and Oncology Diagnoses Breast lump Bi-lat breast lumps Procedures Consult and treat Liban Humphrey MD [address] [place] [address] [place] [address] [facility] Hem [place]c [address] [place] [address] Referral ID Status Reason Start Date Expiration Date Visits Re quested Visits Authorized [id number] Closed 08/28/2016 08/28/2017 1 1 Encounter Details Date Type Department Care Team (Latest Contact Info) Description 09/11/2016 11:20 AM EDT - 09/11/2016 11:59 PM EDT Hospital En[place] [address] Odessa Park MD [facility] [address] Breast lump Discharge Disposition: Home Social History Tobacco Use [...] Dispensed Refills Start Date End Date cetirizine (ZYRTEC) 10 mg tablet 10/03/19 09 06/06/2019 documented as of this encounter Plan of Treatment Upcoming Encounters Date Type Department Care Team (Late st Contact Info) Description 06/30/2024 4:30 PM EDT Office Visit Hematology [place] [address] Shilpi Gallegos MD [facility] [address] [place] [address] documented as of this encounter Procedures Procedure Name Priority Date/Time Associated Diagnosis Comments MAMMO US BIOPSY RIGHT Routine 09/11/2016 12:38 PM EDT Breast lump SPECIMEN TO PATHOLOGY Routine 09/11/2016 12:04 PM EDT SPECIMEN TO PATHOLOGY Routine 09/11/2016 12:00 PM EDT SURGICAL PATHOLOGY REPORT Routine 09/11/2016 11:45 AM EDT documented in this encounter Results * Mammo Us Biopsy Right (09/11/2016 12:38 PM EDT) Anatomical Region Laterality Modality Breast Right Mammography Impressions 09/14/2016 5:06 PM EDT Concordant malignant result in the right breast. No evidence of axillary adenopathy. RECOMMENDATION: Breast MRI and definitive management. I discussed these results and recommendations with the patient on 09/14/2016 at 1706 hours. REVIEW PATH CONFERENCE?: No Narrative 09/14/2016 5:06 PM EDT RIGHT BREAST ULTRASOUND GUIDED AUTOMATED CORE BIOPSY x2 CLINICAL HISTORY: right breast lump. Right breast lesion #1 is a suspicious mass at the 3:00 radian 2 cm from the nipple and the second lesion is the right axillary node. PROCEDURAL DETAILS: Informed consent was obtained and a timeout procedure was performed per protocol. RIGHT BREAST LESION #1: Using local anesthetic (less than 5 cc of 1% lidocaine), sterile technique, and ultrasound guidance the lesion in the right medial breast was localized and sampled. Multiple satisfactory core biopsy specimens were obtained using a 14-gauge automated device.A Senomark Leesa 14G marker clip was placed. The clip was in satisfactory position both sonographically and at follow-up cranio-caudal and true lateral digital mammography. RIGHT AXILLA: Using local anesthetic (less than 5 cc of 1% lidocaine), sterile technique, and ultrasound guidance the lesion in the right axilla was localized and sampled. Multiple satisfactory core biopsy specimens were obtained using a 14-gauge short throw automated device. A Senomark hooked coil 14G marker clip was placed. The clip was in satisfactory position both sonographically and at follow-up cranio-caudal and true lateral digital mammography. COMPLICATIONS: None. PROCEDURAL ATTESTATION: Resident: None I performed the procedure without a resident. 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 ??Separate Pathology report to follow Odessa Park MD PATHOLOGY/CYTOLOGY ORDERABLES [facility] [place] [address] * Specimen to Pathology (surgical or derm) (09/11/2016 12:00 PM EDT) AP Specimen 09/11/2016 12:0 0 PM EDT 09/11/2016 12:00 PM EDT Narrative [facility] - 09/11/2016 12:00 PM EDT Specimen requisition ordered. ??Separate Pathology report to follow Odessa Park MD PATHOLOGY/CYTOLOGY ORDERABLES [facility] [place] [address] * Surgical Pathology Report (09/11/2016 11:45 AM EDT) Final Diagnosis [id number] ? Location: 3L The signing pathologist has (i) examined the relevant preparation(s) for the specimen(s) and (ii) rendered or confirmed the diagnosis(es). . ? Addendum ADDENDUM DISCUSSION This case has been reviewed by Kam Skinner MD of ?[facility] ([facility]) ??by report dated 05/03/2017 with the accession number [id number]. The ??[facility] ([facility]) diagnosis is in agreement with our diagnosis. ??For the full text of the [facility] report(s, please refer to [facility] in the electronic health record (eDH). Electronically signed by: ??Thelma Church DO Verified: ??05/19/2017 ?Pathologist Performed at: ??-[facility] Dept. of Pathology, [place], [place] ?Molecular Genetics RESULTS TEST: HER2(ERBB2) FISH, Breast METHOD: Fluorescence in situ hybridization (FISH) with chromosome 17 centromere (17p11.1-q11.1) probe and a locus specific probe for the HER2 gene locus (17q11.2- q12). SAMPLE ANALYZED: ??A1-8 RESULT: ?POSITIVE FOR HER2/EFRAIN AMPLIFICATION ? TOTAL # SIGNALS/TOTAL # NUCLEI COUNTED FOR HER2 PROBE = 812 ? TOTAL # SIGNALS/TOTAL # NUCLEI COUNTED FOR CEP-17 PROBE = 81 ? HER2 TO CEP-17 RATIO = 10.0 ?(NORMAL RANGE ? <2.0) ? TOTAL # NUCLEI COUNTED = 40 Interpretation: ??Paraffin-embedded tissue sections were submitted for HER2(ERBB2)gene amplification analysis by FISH. ??Direct analysis was performed using the SmartCare system Kit. ??Slide adequacy and signal enumeration were evaluated and satisfactory for both control and patient slides. ??A signal ratio derived from the HER2 probe and the CEP-17 centromere probe of ?2.0 is considered positive for HER2 gene amplification. The 2013 ASCO/CAP guideline recommendation for HER2 testing in breast cancer states that samples with a HER2 to CEP-17 ratio of less than 2.0 are non-amplified. Specimens with a HER2 to CEP-17 range of ?2.0 are considered amplified. This test is approved by the U.S. FDA for clinical diagnostic use. Reference: Konstantin AGUILAR, et al. Recommendations for human epidermal growth factor receptor 2 testing in breast cancer: [place] Society of Clinical Oncology/College of [place] Pathologists clinical practice guideline update. J Clin Oncol. 2013 Nov . Reviewed by: Clif Murdock MD . RESULTS _ Electronically signed by: ??Maurice LEGER, Miguel Mcelroy Verified: ??09/21/2016 ?Pathologist ?Surgical Pathology DIAGNOSIS A - ??Needle biopsies: ??Right breast lesion 1 Diagnosis: ?Invasive ductal carcinoma, intermediate grade. ?Ductal carcinoma in-situ, high grade with comedo necrosis. Microcalcifications: ??Associated with DCIS. On A1 - ER immunoreactivity: ??Positive 11-90% cancer cells with immunostaining ?Stain Intensity Moderate NH immunoreactivity: ??Positive 11-90% cancer cells with immunostaining ?Stain Intensity Moderate to focal Strong FISH studies are pending. ? ------ *Diagnostic meraz for hormone receptors (ASCO/CAP GUIDELINES, 2010): ?Negative immunoreactivity: ?? <1% tumor cells with immunostaining ?Positive immunoreactivity: ?? >1% tumor cells with immunostaining Immunohistochemical assays were performed on paraffin-embedded tissue sections fixed in 10% neutral buffered formalin for 6-72 hours using the polymer system technique with appropriate positive and negative controls. ??The assays were performed according to the benzene washer ??'s instructions using Anti-ER (SP1) and Anti-NH (16) antibodies. B - ??Needle biopsies: ??Right axillary node [...] absence is evaluated within the context of clinical presentation, morphology, histopathological criteria and other diagnostic tests. Block ? Antibody ?Result (Positive/Negative) A1 ?Calponin ?Negative in area of invasion CLINICAL INFORMATION Specimen Submitted: A - Right breast lesion 1 B - Right axillary node ultrasound biopsy Clinical History: A - mass B - axillary lymph node . CLINICAL INFORMATION Clinical Diagnosis: A - IDC, ILC B - hyper node,met dz Report to: Radha Acuna SPECIMEN PROCESSING A - ??Labeled/Fixative: Right breast lesion 1 ultrasound biopsy, formalin. Quantity/Size: Three, averaging 1.6 x 0.2 x 0.2 cm. Tissue Description: Soft yellow-white fibroadipose tissue needle core biopsies. Ischemic Time: 5 minutes. Sections/Processing: (T1) B - ??Labeled/Fixative: Right axillary node ultrasound, formalin. Quantity/Size: Three, averaging 0.3 x 0.1 x 0.1 cm. Tissue Description: Soft yellow-white fibroadipose tissue needle core biopsies. Ischemic Time: 5 minutes. Sections/Processing: (T1) ??calvin 05/19/2017 9:17 AM EST [facility] BREAST STRUCTURE / Unknown 09/11/2016 11:45 AM EDT 09/11/2016 11:45 AM EDT BREAST STRUCTURE / Unknown 09/11/2016 11:45 AM EDT 09/11/2016 11:45 AM EDT Odessa Park MD PATHOLOGY/CYTOLOGY ORDERABLES [facility] [place] [address] documented in this encounter Visit Diagnoses Diagnosis Breast lump Lump or mass in breast documented in this encounter Administered Medications Inactive Administered Medications - up to 3 most recent administrations Medication Order MAR Action Action Date Dose Rate Site lidocaine (XYLOCAINE) 10 mg/mL (1 %) injection 10 mg 10 mg, Intradermal, ONCE, 1 dose, On Wed09/11/16 at 1230, Routine Given 09/11/2016 12:50 PM EDT 10 mg lidocaine (XYLOCAINE) 10 mg/mL (1 %) injection 10 mg 10 mg, Intradermal, ONCE, 1 dose, On Wed09/11/16 at 1230, Routine Given 09/11/2016 11:45 AM EDT 10 mg documented in this encounter Care Teams Deputy Sheriff Lieutenant Relationship Specialty Start Date End Date Radha Acuna MD [address] [place] [address] [place] [address] PCP - General 08/07/11 documented as of this encounter
--- OUTSIDE RECORDS SUMMARY | 2024-04-07 16:43 | XMS_ITS | Encounter Summary ---
[place] [address] Care Team Providers Care Python Architect Name Role Phone Soumya Membreno APRN Primary Care Provider [phone] Reason for Visit * Reason Comments Vitiligo Encounter Details Date Type Department Care Team (Late st Contact Info) Description 10/06/2010 5:15 PM EDT Office Visit Dermatology [address] [place] [address] Brian Naranjo MD [address], [place] [address] Vitiligo (Primary Dx) Social History Tobacco Use Types Packs/Day Years Used Date Smoking Tobacco: Never Assessed Sex and Gender Information Value Date Recorded Sex Assigned at Female 02/09/2022 12:21 PM EDT Gender Identity Female 02/09/2022 12:21 PM EDT Sexual Orientation Straight 02/09/2022 12 :21 PM EDT documented as of this encounter Progress Notes * Brian Naranjo MD - 10/06/2010 6:10 PM EDT Problems: 1. Followup vitiligo, status post about 90 narrowband UVB light treatments to date. Patient has her own home light unit. 2. Previous history of vitiligo in . 3. Family history of vitiligo in a sister. Trina follows up today with her son Rudi. She continues to see improvement. She has not burned. She has had now about 90 treatments and is up to about three minutes and 55 seconds per side for total body treatment and about 40 seconds to the legs only. Physical examination reveals that she is minimally tanned with macular repigmentation nicely about her waist and in the axillary vaults. The waist is almost contiguous. She still has some involvement on the dorsum of the feet with minimal improvement there to date. On the dorsal hands she has vitiliginous patches with some early macules of repigmentation there also on the volar hands some improvement is seen but she still has fairly large areas involved, and also in the antecubital fossa. She has minimal involvement on the popliteal fossa and this area has largely repigmented. Today Polaroid photographs were taken to document these areas. Assessment & Plan: Vitiligo improving. a. Continue narrowband UVB twice weekly again allowing the machine to heat up ahead of time for 2-3 minutes and then continue advancing from her current time of 3 minutes and 55 second as tolerated by 15 seconds a side after a same dosing level for three treatments. b. Continue doing the legs down with the patient standing on a stool. She is now at 40 seconds. Advance after three treatments at a given dose by 15 seconds. c. Patient congratulated on improvement being seen. d. RTC in four months for repeat check. documented in this encounter Plan of Treatment Upcoming Encounters Date Type Department Care Team (Late st Contact Info) Description 06/30/2024 4:30 PM EDT Office Visit [place]ematology [place] [address] Shilpi Gallegos MD [facility] DR [place] [address] documented as of this encounter Visit Diagnoses Diagnosis Vitiligo- Primary documented in this encounter Care Teams Python Architect Relationship Specialty Start Date End Date Soumya Membreno APRN [address] [place] [address] [place] [address] PCP - General 03/04/10 08/06/11 documented as of this encounter
--- OUTSIDE RECORDS SUMMARY | 2024-04-07 16:43 | XMS_ITS | Encounter Summary ---
Author Organization [facility] [place] [address] Care Team Providers Care Laborer Hide House Name Role Phone Radha Acuna MD Primary Care Provider [phone]- [phone] Encounter Details Date Type Department Care Team (Late st Contact Info) Description 09/18/2016 Notes Only Hematology [place] [address] Dash Cooney MD Social History Tobacco Use Types Packs/Day Years Used Date Smoking Tobacco: Never Sex and Gender Information Value Date Recorded Sex Assigned at Female 02/09/2022 12:21 PM EDT Gender Identity Female 02/09/2022 12:21 PM EDT Sexual Orientation Straight 02/09/2022 12 :21 PM EDT documented as of this encounter Progress Notes * Dash Cooney MD - 09/18/2016 10:36 AM EDT I have reviewed the patient's record and given personal and/or family history of cancer she should be seen by genetic counselor. This will be scheduled. documented in this encounter Plan of Treatment Upcoming Encounters Date Type Department Care Team (Late st Contact Info) Description 06/30/2024 4:30 PM EDT Office Visit Hematology [place] [address] Shilpi Gallegos MD [facility] DR HEMATOLOGY [place] [address] documented as of this encounter Visit Diagnoses Not on filedocumented in this encounter Care Teams Laborer Hide House Relationship Specialty Start Date End Date Radha Acuna MD [address] [place] [address] [place] [address] PCP - General 08/07/11 documented as of this encounter
--- OUTSIDE RECORDS SUMMARY | 2024-04-07 16:43 | XMS_ITS | Encounter Summary ---
Author Organization [facility] [place] [address] Care Team Providers Care Supervisor Industrial Garment Name Role Phone Radha Acuna MD Primary Care Provider [phone]- [phone] Encounter Details Date Type Department Care Team (Latest Contact Info) Description 09/11/2016 11:20 AM EDT - 09/11/2016 11:59 PM EDT Hospital [place] [address] Odessa Park MD [facility] [place] [address] Breast lump Discharge Disposition: Home Social History [...] EDT Office Visit [place]ematology [place] [address] Shilpi Gallegos MD [facility] DR [place] [address] documented as of this encounter Procedures Procedure Name Priority Date/Time Associated Diagnosis Comments MAMMO US BIOPSY LYMPH NODE RIGHT Routine 09/11/2016 12:40 PM EDT Breast lump documented in this encounter Results * Mammo Ultrasound Lymph Node Biopsy With Clip Right (09/11/2016 12:40 PM EDT) Anatomical Region Laterality Modality Breast [...] were obtained using a 14-gauge automated device.A i[employer]up [employer] [place] 14G marker clip was placed. The clip [...] Odessa Park MD IMG MAMMO ORDERABL ES documented in this encounter Visit Diagnoses Diagnosis Breast lump Lump or mass in breast documented in this encounter Care Teams Supervisor Industrial Garment Relationship Specialty Start Date End Date Radha Acuna MD [address] [place] [address] [place] [address] PCP - General 08/07/11 documented as of this encounter
--- OUTSIDE RECORDS SUMMARY | 2024-04-07 16:43 | XMS_ITS | Encounter Summary ---
Author Organization [facility] [place] [address] Care Team Providers Care Supervisor Pole Yard Name Role Phone Radha Acuna MD Primary Care Provider [phone]- [phone] Encounter Details Date Type Department Care Team (Late st Contact Info) Description 02/01/2012 [place] [phone] Shilpi Perdomo MD [facility] [place]GY [place] [address] Social History Tobacco Use Types Packs/Day Years Used Date Smoking Tobacco: Never Sex and Gender Information Value Date Recorded Sex Assigned at Female 02/09/2022 12:21 PM EDT Gender Identity Female 02/09/2022 12:21 PM EDT Sexual Orientation Straight 02/09/2022 12 :21 PM EDT documented as of this encounter Miscellaneous Notes * Telephone Encounter - Shilpi Perdomo MD - 02/01/2012 11:55 AM EDT pt was notified of test results: IgA < 5 IgG, and M, were WNL antibodies to tetanus, diptheria, and influenza were protective and 7/23 serotypes of pneumococcus were protective-ideally 70% of 23 serotypes should be protective A: selective IgA deficiency Rec: yrly flu injection Pneumovax -pt will receive at PCP's office if pt. needs a blood transfusion, RBCs will need to be washed several times prior to transfusing , to remove traces of IgA, in order to minimize the possibility of a reaction, as some pts with IgA deficiency have anti-IgA antibodies which can react with IgA during transfusion * Telephone Encounter - Yadira Lazar - 02/01/2012 10:26 AM EDT It will be difficult for her to make her appointment with you; can you give her her test results over the phone? documented in this encounter Plan of Treatment Upcoming Encounters Date Type Department Care Team (Late st Contact Info) Description 06/30/2024 4:30 PM EDT Office Visit Hematology [place] [address] Shilpi Gallegos MD [facility] DR HEMATOLOGY [place] [address] documented as of this encounter Visit Diagnoses Not on filedocumented in this encounter Care Teams Supervisor Pole Yard Relationship Specialty Start Date End Date Radha Acuna MD [address] [place] [address] [place] [address] PCP - General 08/07/11 documented as of this encounter
--- OUTSIDE RECORDS SUMMARY | 2024-04-07 16:43 | XMS_ITS | Encounter Summary ---
[place] [address] Care Team Providers Care Picking Belt Operator Name Role Phone Radha Acuna MD Primary Care Provider +1- [phone] Encounter Details Date Type Department Care Team (Late st Contact Info) Description 09/21/2016 Telephone Hematology [place] [address] Mary Anne Henry RN Social [...] Encounter - Mary Anne Henry RN - 09/21/2016 4:44 PM EDT Comprehensive Breast Program (CBP) Note ?? 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 ? Reason for call: ??patient returned my call regarding medical oncology apt. 09/22 at 9:30 AM. ?? Plan: Trina is aware of consult apt. with Dr. Gallegos on 09/22 and that the HER2 marley results came back as positive. She knows she will discuss potential for neoadjuvant chemotherapy verus adjuvant chemotherapy with Dr. Gallegos. She is aware of consult with genetic counselor to follow on 09/22 in . She completed consult today with see Dr. Zurita and states she plans to stay with him as her plasticsurgeon. Trina has our contact numbers. documented in this encounter Plan of Treatment Upcoming Encounters Date Type Department Care Team (Late st Contact Info) Description 06/30/2024 4:30 PM EDT Office Visit Hematology [place] [address] Shilpi Gallegos MD [facility] DR [place] [address] documented as of this encounter Visit Diagnoses Not on filedocumented in this encounter Care Teams Picking Belt Operator Relationship Specialty Start Date End Date Radha Acuna MD [address] [place] [address] [place] [address] PCP - General 08/07/11 documented as of this encounter
--- OUTSIDE RECORDS SUMMARY | 2024-04-07 16:43 | XMS_ITS | Encounter Summary ---
Author Organization [facility] [place] [address] Care Team Providers Care Class A Truck Driver Name Role Phone Radha Acuna MD Primary Care Provider +1- [phone] Encounter Details Date Type Department Care Team (Late st Contact Info) Description 08/31/2016 Orders [place] [address] Mandie Gonzalez, MICHELINE Breast lump Social History Tobacco Use Types Packs/Day Years [...] EDT Office Visit [place]ology [place] [address] Shilpi Gallegos MD [facility] DR [place] [address] documented as of this encounter Results * Mammo Breast Us Limited Bilateral (09/11/2016 11:20 AM EDT) Anatomical Region Laterality Modality Breast [...] is thickened to 0.3 cm. Mandie Gonzalez BOARDER HAND IMG MAMMO ORDERA BLES * Mammo Diagnostic CAD Bilat (09/11/2016 10:35 [...] is thickened to 0.3 cm. Mandie Gonzalez BOARDER HAND IMG MAMMO ORDERA BLES documented in this encounter Visit Diagnoses Diagnosis Breast lump Lump or mass in breast Breast lump Lump or mass in breast Breast lump Lump or mass in breast documented in this encounter Care Teams Class A Truck Driver Relationship Specialty Start Date End Date Radha Acuna MD [address] [place] [address] [place] [address] PCP - General 08/07/11 documented as of this encounter
--- OUTSIDE RECORDS SUMMARY | 2024-04-07 16:43 | XMS_ITS | Encounter Summary ---
Author Organization [facility] [place] [address] Care Team Providers Care Ultrasonographer Name Role Phone Radha Acuna MD Primary Care Provider +1- [phone] Encounter Details Date Type Department Care Team (Late st Contact Info) Description 09/11/2016 10:04 AM EDT - 09/11/2016 11:19 AM EDT Hospital [place] [address] Mandie Gonzalez APRN Breast lump Discharge Disposition: Home Social History [...] EDT Office Visit [place]ematology [place] [address] Shilpi Gallegos MD [facility] DR [place] [address] documented as of this encounter Procedures Procedure Name Priority Date/Time Associated Diagnosis Comments MAMMO DIAGNOSTIC CAD BILATERAL Routine 09/11/2016 10:35 AM EDT Breast lump documented in this encounter Results * Mammo Diagnostic CAD Bilat (09/11/2016 [...] breast documented in this encounter Care Teams Ultrasonographer Relationship Specialty Start Date End Date Radha Acuna MD [address] [place] [address] [place] [address] PCP - General 08/07/11 documented as of this encounter
--- OUTSIDE RECORDS SUMMARY | 2024-04-07 16:43 | XMS_ITS | Encounter Summary ---
Author Organization [facility] [place] [address] Care Team Providers Care Prototype Fabricator Name Role Phone Radha Acuna MD Primary Care Provider +1- [phone] Encounter Details Date Type Department Care Team (Late st Contact Info) Description 09/16/2016 [place] [id number] Destiney Diggs MSW Social History Tobacco Use Types Packs/Day Years Used Date Smoking Tobacco: Never Sex and Gender Information Value Date Recorded Sex Assigned at Female 02/09/2022 12:21 PM EDT Gender Identity Female 02/09/2022 12:21 PM EDT Sexual Orientation Straight 02/09/2022 12 :21 PM EDT documented as of this encounter Progress Notes * Destiney Diggs MSW - 09/16/2016 11:59 PM EDT OFFICE OF CARE MANAGEMENT/CONTINUING FOOT DRILL OPERATOR Reason for referral: Trina Frances is 36 year old, female who was seen in the multidisciplinary breast care clinic for a surgical consult as she was recently diagnosed with ER/ID+, right breast, IDC/DCIS. Dr. Negro is recommending a mastectomy. A plastic surgery appt will be arranged for pt to discuss breast reconstruction. [facility] met with pt to complete a psychosocial assessment and to explain my role in the breast program. Pt was encouraged to contact me if she has any questions or concerns. Living arrangements/social supports: Pt lives in [place], [place] with her , Rudi, and two children ages, 8yrs and 2yrs. Pt has support from her family and friends. Pt has told her son about herdiagnosis and feels he is coping all right. I gave pt articles on how to talk to children about a breast cancer diagnosis. The book, Breast Cancer Handbook was recommended to pt's . 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 She works two, 12 hr shifts weekly and commutes from [place], [place]. Pt has health insurance through [employer] and is concerned about her [id number] expenses. I suggested she contact [employer] to discuss financial assistance at [employer] [place] [place] and/or a budget plan. Pt was given information about financial assistance programs which assist with expenses for breast cancer pts receiving treatment. Tobacco/drug/alcohol history: Pt does not smoke and drinks socially. Advance Directives: Advance directives were not discussed at this meeting. Adjustment to illness/Mental Health Concerns: Pt is understandably anxious about her newly diagnosed breast cancer. Dr. Negro has recommended a mastectomy and would like an area on pt's chest wall to be evaluated. Consequently, pt does not have a surgical plan at this time. Pt has support from her and family members. I reviewed some of the support and services available to pt in the [facility]. Plan: [facility]CM will continue to follow pt to assess and assist with their psychosocial needs. [facility]/[place] [address] Pager #[phone] documented in this encounter Plan of Treatment Upcoming Encounters Date Type Department Care Team (Late st Contact Info) Description 06/30/2024 4:30 PM EDT Office Visit Hematology [place] [address] Shilpi Gallegos MD [facility] [place] [address] documented as of this encounter Visit Diagnoses Not on filedocumented in this encounter Care Teams Prototype Fabricator Relationship Specialty Start Date End Date Radha Acuna MD [address] [place] [address] [place] [address] PCP - General 08/07/11 documented as of this encounter
--- OUTSIDE RECORDS SUMMARY | 2024-04-07 16:43 | XMS_ITS | Encounter Summary ---
[place] [address] Care Team Providers Care Cashier General Name Role Phone Radha Acuna MD Primary Care Provider +1- [phone] Reason for Referral * Diagnostic Test (Routine) - Closed Specialty Diagnoses / Procedures Referred By Contac t Referred To Contact Radiology Diagnoses Malignant neoplasm of right female breast, unspecified site of breast Procedures MRI Breast wwo Contrast Ewa Jacob MD [facility] [place] [place] [address] [place] [address] Referral ID Status Reason Start Date Expiration Date V isits Requested Visits Authorized [id number] Closed Specialty Service Requested 09/15/2016 09/15/2017 1 1 Reason for Visit * Diagnostic Test (Routine) - Closed Specialty Diagnoses / Procedures Referred By Contgabriela t Referred To Contact Radiology Diagnoses Malignant neoplasm of right female breast, unspecified site of breast Procedures MRI Breast wwo Contrast Ewa Jacob MD [facility] [place] [place] [address] [place] [address] Referral ID Status Reason Start Date Expiration Date V isits Requested Visits Authorized [id number] Closed Specialty Service Requested 09/15/2016 09/15/2017 1 1 Encounter Details Date Type Department Care Team (Latest Contact Info) Description 09/17/2016 5:44 AM EDT - 09/17/2016 11:59 PM EDT Hospital Encounter MRI at [place] [id number] Ewa Mcnamara MD [facility] [place] [address] Malignant neoplasm of right female breast, unspecified [...] EDT Office Visit [place] [address] Shilpi Gallegos MD [facility] [address] [place] [address] documented as of this encounter Procedures Procedure Name Priority Date/Time Associated Diagnosis Comments MRI BREAST WWO CONTRAST BILAT Routine 09/17/2016 7:34 AM EDT Malignant neoplasm of right female breast, unspecified site of breast documented in this encounter Results * MRI Breast wwo Contrast Bilat (09/17/2016 7:34 AM EDT) Anatomical Region Laterality Modality Breast N/A Magnetic Resonan ce Impressions 09/17/2016 9:28 AM EDT MRI demonstrates extensive disease spanning 7 cm superior to inferior limited to the right breast upper inner quadrant without evidence of chest wall invasion. The anterior to posterior disease is best depicted mammographically. No evidence of axillary adenopathy. RECOMMENDATION:Definitive management. LEFT BREAST 2. Benign finding RIGHT BREAST ??6. Known malignancy Narrative 09/17/2016 9:28 AM EDT BILATERAL BREAST MRI CLINICAL INDICATION: ??36-year-old with newly diagnosed right breast cancer TECHNIQUE: Multiplanar sequences were obtained pre- and post- gadolinium enhancement, to include SPGR weighted dynamic run-off and subtraction sequences obtained after the intravenous administration of 5 ccs of Gadovist. Computer algorithm analysis for lesion detection and kinetic contrast enhancement curve analysis was performed, using Jumia software. COMPARISON STUDIES: Compared and/or correlated with prior studies including 09/11/2016 mammogram, ultrasound and ultrasound-guided core biopsies. FINDINGS: Background Enhancement Pattern (first post gadolinium image): Marked (>75% breast) Amount of Fibroglandular Tissue: Extremely dense LEFT Breast: Confluent tissue is noted in [...] follows: RIGHT BREAST LESION 1: ??1 cm Mass Right medial breast ??3 O'Clock 3 cm from the nipple by MRI Mass Shape: Round Margins: Not circumscribed - Spiculated Enhancement: Homogenous Delayed phase: Plateau Non mass enhancement: Distribution: Segmental Enhancement: Initial upslope: Slow Delayed phase: Progressive Lymph Node Basins/Other: There is no evidence of internal mammary or axillary adenopathy. Specifically the lymph node basin of the right axilla has been surveyed by ultrasound with core biopsy sampling of one of the dominant axillary lymph nodes yielding no evidence of malignancy.. No significant abnormalities are seen in the chest wall or skin.. Ewa Mcnamara MD IMG MRI ORDERABLES documented in this encounter Visit Diagnoses Diagnosis Malignant neoplasm of right female breast, unspecified site of breast documented in this encounter Administered Medications Inactive Administered Medications - up to 3 most recent administrations Medication Order MAR Action Action Date Dose Rate Site gadobutrol (GADAVIST) 1 mMol/mL injection 5 mL 5 mL, Intravenous, ONCE PRN, 1 dose, Starting on Kaycee 09/17/16 at 0610, Until Kaycee 09/17/16 at 0710, Per Protocol, Routine Given 09/17/2016 7:10 AM EDT 5 mLs documented in this encounter Care Teams Cashier General Relationship Specialty Start Date End Date Radha Acuna MD [address] [place] [address] [place] [address] PCP - General 08/07/11 documented as of this encounter
--- OUTSIDE RECORDS SUMMARY | 2024-04-07 16:43 | XMS_ITS | Encounter Summary ---
Author Organization [facility] [place] [address] Care Team Providers Care Senior Property Manager Name Role Phone Radha Acuna MD Primary Care Provider +1- [phone] Encounter Details Date Type Department Care Team (Late st Contact Info) Description 09/11/2016 10:00 AM EDT - 09/11/2016 10:03 AM EDT Hospital En[place] [address] Mandie Gonzalez APRN Breast lump Discharge Disposition: [...] EDT Office Visit Hematology [place] [phone] Shilpi Gallegos MD [facility] DR HEMATOLOGY [place] [address] documented as of this encounter Procedures Procedure Name Priority Date/Time Associated Diagnosis Comments MAMMO BREAST US LIMITED BILATERAL Routine 09/11/2016 11:20 AM EDT Breast lump documented in this encounter Results * Mammo Breast Us [...] breast documented in this encounter Care Teams Senior Property Manager Relationship Specialty Start Date End Date Radha Acuna MD [address] [place] [address] [place] [address] PCP - General 08/07/11 documented as of this encounter
--- OUTSIDE RECORDS SUMMARY | 2024-04-07 16:43 | XMS_ITS | Encounter Summary ---
Author Organization [facility] [place] [address] Care Team Providers Care Grader Tender Name Role Phone Radha Acuna MD Primary Care Provider +1- [phone] Reason for Visit * Reason Comments Allergic Reaction Encounter Details Date Type Department Care Team (Late st Contact Info) Description 01/14/2012 2:45 PM EDT [place] [address] Shilpi Perdomo MD [facility] [place] [address] Urticaria (Primary Dx); IgA deficiency Discharge Disposition: Home Social History Tobacco Use Types Packs/Day Years Used Date Smoking Tobacco: Never Sex and Gender Information Value Date Recorded Sex Assigned at Female 02/09/2022 12:21 PM EDT Gender Identity Female 02/09/2022 12:21 PM EDT Sexual Orientation Straight 02/09/2022 12 :21 PM EDT documented as of this encounter Last Filed Vital Signs Vital Sign Reading Time Taken Comments Blood Pressure 105/69 01/14/2012 3:10 PM EDT Pulse 72 01/14/2012 3:10 PM EDT Temperature - - Respiratory Rate 18 01/14/2012 3:10 PM EDT Oxygen Saturation 99% 01/14/2012 3:10 PM EDT Inhaled Oxygen Concentration - - Weight 52.2 kg (115 lb) 01/14/2012 3:10 PM EDT Height 154.9 cm (5' 1) 01/14/2012 3:10 PM EDT Body Mass Index 21.73 01/14/2012 3:10 PM EDT documented in this encounter Patient Instructions * Patient Instructions* Shilpi Perdomo MD - 01/14/2012 3:40 PM EDT labs today documented in this encounter Progress Notes * Shilpi Perdomo MD - 01/16/2012 3:35 PM EDT Subjective: Patient ID: Trina Javier is a 31 y.o. female. who is seen at the request of Dr Acuna for evaluation of a low level of IgA. Notes from her office were reviewed by me as well as recent lab studies. HPI Trina was seen recently by her PCP for evaluation of fatigue and in the course of the workup was found to have an IgA of <7. IgG and M were not done. TTG was normal. She has a history of recurrent episodes of sinusitis and bronchitis , but denies having had meningitis, sepsis,pneumonia,abcesses, osteomyelitis, or other serious infections. She does have occasional infections of the eyelids and has had to use Tobramycin topically for this. there is no known family h/o immune deficiency. She has vitiligo and has trialed Protopic for this previously. Has a h/o intermittent urticaria since the age of 10 and takes daily Zyrtec for control. no specifictrigger has ever been identified. She has had to take prednisone occasionally for this. Has a h/o intermittent rhinorrhea and post nasal drainage which has been helped by taking Zyrtec. She had a septoplasty/turbinoplasty done previously. Past med. history: IgA deficiency, sinusitis, bronchitis, vitiligo, anxiety,fatigue, allergic rhinitis,urticaria Meds: Zyrtec, OCP,MVI,folic acid Allergies Allergen Reactions ??? Aspirin CIS - Hives ??? Hydrocodone-acetaminophen CIS - Hives ??? 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 HENT: Positive for rhinorrhea and postnasal drip. Eyes: H/o lid infections Respiratory: Negative. Cardiovascular: Negative. Gastrointestinal: Negative. Genitourinary: Negative. Musculoskeletal: Negative. Skin: vitiligo Neurological: Positive for headaches. Hematological: Negative. Psychiatric/Behavioral: The patient is nervous/anxious. Objective: Physical Exam Constitutional: No distress. HENT: Right Ear: External ear normal. Left Ear: External ear normal. Nose: Nose normal. Mouth/Throat: Oropharynx is clear and moist. Eyes: Conjunctivae are normal. Right eye exhibits no discharge. Left eye exhibits no discharge. Cardiovascular: Normal heart sounds. Pulmonary/Chest: Breath sounds normal. Musculoskeletal: Normal range of motion. Lymphadenopathy: She has no cervical adenopathy. Neurological: She is alert. Skin: No rash noted. Psychiatric: She has a normal mood and affect. Assessment and Plan: Trina was found to have an IgA level of <7 during the course of a recent workup for fatigue. She has no known family history of immune deficiency and no personal history of unusual or serious infections, although she does have a history of recurrent episodes of sinusitis and bronchitis, which is often the case in individuals with IgA deficiency. I would like to rule out the possibility of common variable immunodeficiency, in which the IgG and/or IgM levels are also decreased, and therefore have ordered IgG and IgM , and ,in addition,will check antibody titers to tetanus, diptheria, pneumococcus, and influenza . For chronic urticaria, I recommend that she continue Zyrtec 10 mg/day.As I told her, urticaria persisting for years is frequently idiopathic. For allergic rhinitis, Zyrtec is also recommended and , if needed, a nasal steroid spray, such as Flonase, could be added in the future. I have asked Trina to RTC in 2-3 weeks so we can discuss her test results. Thank you for this referral. documented in this encounter Plan of Treatment Upcoming Encounters Date Type Department Care Team (Late st Contact Info) Description 06/30/2024 4:30 PM EDT Office Visit Hematology [place] [address] Shilpi Gallegos MD [facility] [address] [place] [address] documented as of this encounter Procedures Procedure Name Priority Date/Time Associated Diagnosis Comments MISCELLANEOUS LAB REQUEST Routine 01/14/2012 4:12 PM EDT IgA deficiency MISCELLANEOUS LAB REQUEST Routine 01/14/2012 4:12 PM EDT IgA deficiency DIPHTHERIA TOXOID IGG ANTIBODY Routine 01/14/2012 4:12 PM EDT S PNEUMONIAE ANTIBODY IGG, 23 SEROTYPES Routine 01/14/2012 4:12 PM EDT IgA deficiency INFLUENZA VIRUS A ANTIBODY IGG AND IGM Routine 01/14/2012 4:12 PM EDT TETANUS TOXOID ANTIBODY, IGG Routine 01/14/2012 4:12 PM EDT IgA deficiency IGA Routine 01/14/2012 4:12 PM EDT IgA deficiency IGM Routine 01/14/2012 4:12 PM EDT IgA deficiency IGG Routine 01/14/2012 4:12 PM EDT IgA deficiency documented in this encounter Results * INFLUENZA VIRUS A ANTIBODY IGG AND IGM (01/14/2012 4:12 PM EDT) [facility] Influenza A IgG 1:320 [facility] Comment: Test Performed by: [place] [address] Grooming Assistant: Shaka Styles III, M.D. Influenza A IgM <1:10 [facility] Comment: Expected Values: IgG ??<1:10 ? IgM ??<1:10 The presence of IgM class antibodies or a fourfold or greater rise in paired sera IgG titer indicates recent infection. ??The presence of demonstrable IgG generally indicates past exposure. Test Performed by: [place] [id number] Grooming Assistant: Shaka Styles III, M.D. Blood specimen (specimen) 01/14/2012 4:12 PM EDT 01/15/2012 7:55 AM EDT Narrative Resulting Agency Comment Spec In Lab Shilpi Perdomo MD IMMUNOLOGY ORDERABLE S Performing Organization Address [facility]/ZIP Co de Phone Number SAMANTHA MATSON * DIPHTHERIA TOXOID IGG ANTIBODY (01/14/2012 4:12 PM EDT) Diphtheria Ab (AUGUST) 0.150 IU/mL [facility] Comment: Research Use Only The minimum level of protective antibody in the normal population is between 0.01 and 0.1 IU/mL. The majority of vaccinated individuals should demonstrate protective levels of antibody > 0.1 IU/mL. Test Performed by: [address] [address] Grooming Assistant: Shaka Styles III, M.D. Blood specimen (specimen) 01/14/2012 4:12 PM EDT 01/15/2012 7:55 AM EDT Narrative Resulting Agency Comment Spec In Lab Shilpi Perdomo MD LAB SEND OUT ORDERAB LES Performing Organization Address [facility] Co de Phone Number SAMANTHA MATSON * Miscellaneous Lab request (01/14/2012 4:12 PM EDT) Label Request received in lab. SAMANTHA MATSON Specimen of unknown material (specimen) 01/14/2012 4:12 PM EDT 01/14/2012 4:25 PM EDT Shilpi Perdomo MD LAB SEND OUT ORDERAB LES SAMANTHA MASTON * Miscellaneous Lab request (01/14/2012 4:12 PM EDT) Label Request received in lab. SAMANTHA MATSON Specimen of unknown material (specimen) 01/14/2012 4:12 PM EDT 01/14/2012 4:25 PM EDT Shilpi Perdomo MD LAB SEND OUT ORDERAB LES Performing Organization Address [facility] Co de Phone Number [facility] * IgM (01/14/2012 4:12 PM EDT) IgM 135 40 - 230 mg/dL [facility] Blood specimen (specimen) 01/14/2012 4:12 PM EDT 01/14/2012 4:25 PM EDT Narrative Resulting Agency Comment Spec In Lab Shilpi Perdomo MD CHEMISTRY ORDERABLES Performing Organization Address [facility] Phone Number [facility] * IgG (01/14/2012 4:12 PM EDT) Pathologist [facility] Immunoglobulin G 1012 700 - 1600 mg/dL [facility] Blood specimen (specimen) 01/14/2012 4:12 PM EDT 01/14/2012 4:25 PM EDT Narrative Resulting Agency Comment Spec In Lab Shilpi Perdomo MD CHEMISTRY ORDERABLES Performing Organization Address [facility] de Phone Number [facility] * IgA (01/14/2012 4:12 PM EDT) Pathologist [facility] IgA <5 70 - 400 mg/dL [facility] Comment:Result rechecked. bl r, 01/14/12 17:31 Blood specimen (specimen) 01/14/2012 4:12 PM EDT 01/14/2012 4:25 PM EDT Narrative Resulting Agency Comment Spec In Lab Shilpi Perdomo MD CHEMISTRY ORDERABLES Performing Organization Address [facility] de Phone Number [facility] * Tetanus Toxoid Antibody, IgG (01/14/2012 4:12 PM EDT) Pathologist [facility] Tetanus Ab,IgG (AUGUST) 3.33 IU/mL [facility] Comment: Research Use Only The minimum level of protective antibody in the normal population is between 0.01 and 0.15 IU/mL. The majority of vaccinated individuals should demonstrate protective levels of antibody > 0.15 IU/mL. Test Performed by: [address] [address] Grooming Assistant: Shaka Styles III, M.D. Blood specimen (specimen) 01/14/2012 4:12 PM EDT 01/15/2012 7:54 AM EDT Narrative Resulting Agency Comment Spec In Lab Shilpi Perdomo MD LAB SEND OUT ORDERAB LES [email or web address] * S pneumoniae Antibody IgG, 23 serotypes (01/14/2012 4:12 PM EDT) Pathologist [facility] S Pneumo IgG 23 (MAY) ?HI ?Expected Test ?Result ?LO ??Units ?? Values --- S. pneumoniae IgG Ab,23 serotypes,S ??Serotype 1 (1) ?<0.3 ?L ?? mcg/mL ??>8.2 ??Serotype 2(2) ? 0.3 ? L ?? mcg/mL ??>7.4 ??Serotype 3 (3) ?0.3 ? L ?? mcg/mL ??>6.9 ??Serotype 4 (4) ?<0.1 ?L ?? mcg/mL ??>4.1 ??Serotype 5 (5) ?<0.3 ?L ?? mcg/mL ??>28.8 ??Serotype 8 (8) ?1.7 ? L ?? mcg/mL ??>13.3 ??Serotype 9N (9) ? 0.8 ? L ?? mcg/mL ??>16.6 ??Serotype 12F (12) ? <0.1 ?L ?? mcg/mL ??>4.3 ??Serotype 14 (14) ?<0.5 ?L ?? mcg/mL ??>22.9 ??Serotype 17F (17) ? 3.4 ? L ?? mcg/mL ??>44.8 ??Serotype 19F (19) ? 4.1 ? L ?? mcg/mL ??>16.0 ??Serotype 20 (20) ?<0.2 ?L ?? mcg/mL ??>12.1 ??Serotype 22F (22) ? 1.1 ? L ?? mcg/mL ??>32.4 ??Serotype 23F (23) ? 1.4 ? L ?? mcg/mL ??>49.0 ??Serotype 6B (26) ?1.3 ? L ?? mcg/mL ??>15.3 ??Serotype 10A (34) ? 0.4 ? L ?? mcg/mL ??>25.5 ??Serotype 11A (43) ? <0.1 ?L ?? mcg/mL ??>9.7 ??Serotype 7F (51) ?0.8 ? L ?? mcg/mL ??>30.8 ??Serotype 15B (54) ? 3.4 ? L ?? mcg/mL ??>12.8 ??Serotype 18C (56) ? 0.7 ? L ?? mcg/mL ??>7.0 ??Serotype 19A (57) ? 2.9 ? L ?? mcg/mL ??>28.1 ??Serotype 9V (68) ?1.0 ? L ?? mcg/mL ??>44.0 ??Serotype 33F (70) ? <0.2 ?L ?? mcg/mL ??>7.5 To aid in interpretation of the pneumococcal antibody results and to ensure consistency in interpretation with other immunodeficiency practices and the [facility] Practice Guidelines (on interpretation of pneumococcal vaccine responses) we suggest that the following criteria would be consistent with a normal immune response: 1) A titer of 1.3 mcg/mL antibody or more, irrespective of a 4-fold change from the pre-vaccination response, if the titer is less than 1.3 mcg/mL. 2) In children ages 2-5 years a titer of 1.3 mcg/mL or greater to >=50% of the serotypes; in adults a titer of 1.3 mcg/mL or greater to >=70% of serotypes. References: 1. Assessment and clinical interpretation of polysaccharide antibody responses. Tammie Menon and Shantal BAUGH. Annals of Allergy, Asthma and Immunology, 2007, 99: 462-4. 2. Influence of age on the response to Streptococcus pneumoniae vaccine in patients with recurrent infections and normal immunoglobulin concentrations. Shantal BAUGH, Tayo PATTON, Kostas III, FC et al, Journal of Allergy and Clinical Immunology, 1998, 102: 215-21. Test Performed by: [place] [address] Grooming Assistant: Shaka Styles III, M.D. SAMANTHA LOPEZJULIANN Blood specimen (specimen) 01/14/2012 4:12 PM EDT 01/15/2012 7:54 AM EDT Narrative Resulting Agency Comment Spec In Lab Shilpi Perdomo MD LAB SEND OUT ORDERAB LES SAMANTHA MATSON documented in this encounter Visit Diagnoses Diagnosis Urticaria- Primary Urticaria, unspecified IgA deficiency Selective IgA immunodeficiency documented in this encounter Care Teams Grader Tender Relationship Specialty Start Date End Date Radha Acuna MD [address] [place] [address] [place] [address] PCP - General 08/07/11 documented as of this encounter
--- OUTSIDE RECORDS SUMMARY | 2024-04-07 16:43 | XMS_ITS | Encounter Summary ---
Author Organization [facility] [place] [address] Care Team Providers Care Heavy Equipment Service Technician Name Role Phone Radha Acuna MD Primary Care Provider +1- [phone] Encounter Details Date Type Department Care Team (Latest Contact Info) Description 09/11/2016 11:20 AM EDT - 09/11/2016 11:59 PM EDT Hospital En[place] [phone] Odessa Park MD [facility] [place] [address] Breast lump Discharge Disposition: Home Social History [...] EDT Office Visit Hematology [place] [phone] Shilpi Gallegos MD [facility] DR HEMATOLOGY [place] [address] documented as of this encounter Procedures Procedure Name Priority Date/Time Associated Diagnosis Comments MAMMO DIRECT DIGITAL WITH CAD RIGHT Routine 09/11/2016 12:41 PM EDT Breast lump documented in this encounter Results * Mammo Direct Digital Right (09/11/2016 12:41 PM EDT) Anatomical Region Laterality Modality Breast [...] were obtained using a 14-gauge automated device.A [employer] [place] 14G marker clip was placed. The [...] breast documented in this encounter Care Teams Heavy Equipment Service Technician Relationship Specialty Start Date End Date Radha Acuna MD [address] [place] [address] [place] [address] PCP - General 08/07/11 documented as of this encounter
--- OUTSIDE RECORDS SUMMARY | 2024-04-07 16:43 | XMS_ITS | Encounter Summary ---
Author Organization [facility]ly [facility] [place] [address] Care Team Providers Care Fleet Mechanic Name Role Phone Radha Acuna MD Primary Care Provider +1- [phone] Reason for Referral * Diagnostic Test (Routine) - Closed Specialty Diagnoses / Procedures Referred By Contgabriela cisneros Referred To Contact Radiology Diagnoses Malignant neoplasm of right female breast, unspecified site of breast Procedures MRI Breast wwo Contrast Ewa Jacob MD [facility] [place] [address] [place] [address] Referral ID Status Reason Start Date Expiration Date V isits Requested Visits Authorized [id number] Closed Specialty Service Requested 09/15/2016 09/15/2017 1 1 Encounter Details Date Type Department Care Team (Late st Contact Info) Description 09/15/2016 Orders [place] [address] Ewa Mcnamara MD [facility] [place] [address] Malignant neoplasm of right female breast, unspecified [...] EDT Office Visit [place] [address] Shilpi Gallegos MD [facility] DR [place] [address] documented as of this encounter Results * MRI Breast wwo [...] contrast enhancement curve analysis was performed, using [employer] software. COMPARISON STUDIES: Compared and/or correlated with [...] chest wall or skin.. Ewa Mcnamara MD [facility] MRI ORDERABLES * Comprehensive metabolic panel (non-fasting) (09/16/2016 7:05 AM EDT) Glucose 94 65 - 199 mg/dL [facility] Comment:Diabetes: >=200 mg/d L plus symptoms Blood Urea Nitrogen 13 8 - 18 mg/dL [facility] Creatinine 0.75 0.70 - 1.20 mg/dL [facility] Comment: Please note that the pediatric reference intervals supplied above were not validated at [facility]. Results from pediatric patients [...] >60 >=60 [facility] Comment: This estimated GFR (eGFR) [...] the following links into your internet browser. [email or web address] Blood specimen (specimen) 09/16/2016 7:05 AM EDT 09/16/2016 7:15 AM EDT Narrative Resulting Agency Comment Spec In Lab Ewa Mcnamara MD CHEMISTRY ORDERABLE S [facility] [place] [address] documented in this encounter Visit Diagnoses Diagnosis Malignant neoplasm of right female breast, unspecified site of breast Malignant neoplasm of right female breast, unspecified site of breast documented in this encounter Care Teams Fleet Mechanic Relationship Specialty Start Date End Date Radha Acuna MD [address] [place] [address] [place] [address] PCP - General 08/07/11 documented as of this encounter
--- OUTSIDE RECORDS SUMMARY | 2024-04-07 16:43 | XMS_ITS | Encounter Summary ---
[place] [address] Care Team Providers Care Bulb Filler Name Role Phone Radha Acuna MD Primary Care Provider +1- [phone] Encounter Details Date Type Department Care Team (Late st Contact Info) Description 09/15/2016 Telephone Hematology [place] [address] Mary Anne Henry RN Social [...] Encounter - Mary Anne Henry RN - 09/15/2016 2:51 PM EDT Comprehensive Breast Program (CBP) Note Reason for call: Contacted patient after Dr. Park informed her that her breast biopsy results indicated she has invasive ductal carcinoma/ductal carcinoma in situ, to introduce her to the CBP. Trina Frances is a 36 y.o. female with newly diagnosed ER/[place]+/HER2 pending right breast IDC/DCIS (right breast U/S guided biopsies 09/11/2016 at [facility]). Trina sounds positive and has support from family. Her will accompany her to appointments. She appears to be coping well but is anxious to meet with a breast surgeon to determine a treatment plan. 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 She requested her plastic surgery consult be changed so she may meet with Dr. Latasha Peres if thisdoes not create a long delay. CBP will check as to availability. She would also like to consult with Dr. Gallegos, medical oncologist, at the appropriate time. She asked about meeting with a genetic counselor and genetic testing. Will be discussed with Dr. Negro at consult visit. Plan: Appointments for breast MRI and surgical consults with breast and plastic surgeons have been scheduled. She was introduced to the CBP and told she would receive information about her diagnosis and treatment for her review tomorrow after her surgical consult visit (the Breast Cancer Treatment Handbook). A Link to the [facility] Early Stage Breast Cancer program will be sent to her. Plan to meet with Trina the day of her consult apt. Addressed her questions and encouraged her to contact me with any additional questions or concerns.She has our contact information. Laterality:Right Is this a recurrence:No Family history of breast cancer:No Family history of ovarian cancer: No Personal history or breast cancer:No Method of detection: Patient detected and Provider detected Method of diagnosis: Ultrasound Core Biopsy documented in this encounter Plan of Treatment Upcoming Encounters Date Type Department Care Team (Late st Contact Info) Description 06/30/2024 4:30 PM EDT Office Visit [place] [address] Shilpi Gallegos MD [facility] DR [place] [address] documented as of this encounter Visit Diagnoses Not on filedocumented in this encounter Care Teams Bulb Filler Relationship Specialty Start Date End Date Radha Acuna MD [address] [place] [address] [place]SE [place]IG[place]EL [place] [address] PCP - General 08/07/11 documented as of this encounter
--- OUTSIDE RECORDS SUMMARY | 2024-04-07 16:43 | XMS_ITS | Encounter Summary ---
[place] [address] Care Team Providers Care Target Aircraft Controller Name Role Phone Radha Acuna MD Primary Care Provider +1- [phone] Reason for Referral * Consultation (Routine) - Closed Specialty Diagnoses / Procedures Referred By Clara cisneros Referred To Contact Hematology and Oncology Diagnoses Malignant neoplasm of upper-inner quadrant of right female breast Ruby Negro MD [facility] [place] [address] [facility] Hem Onc [address] [place] [phone] Referral ID Status Reason Start Date Expiration Date V isits Requested Visits Authorized [id number] Closed Consult, Test & Treat 09/16/2016 09/16/2017 1 1 Reason for Visit * Consultation (Routine) - Specialty Diagnoses / Procedures Referred By Clara cisneros Referred To Contact Hematology and Oncology Diagnoses Breast cancer Radha Acuna MD [address] [place] [id number] [facility] Hem Onc [address] [place] [phone] Referral ID Status Reason Start Date Expiration Date V isits Requested Visits Authorized [id number] 09/15/2016 09/15/2017 1 1 Encounter Details Date Type Department Care Team (Late st Contact Info) Description 09/16/2016 8:00 AM EDT Office Visit [place]ematology [place] [address] Ruby Negro MD Maynard, Kimberly J, RN Malignant neoplasm of upper-inner quadrant of right female breast Social History Tobacco Use Types Packs/Day Years Used Date Smoking Tobacco: Never Sex and Gender Information Value Date Recorded Sex Assigned at Female 02/09/2022 12:21 PM EDT Gender Identity Female 02/09/2022 12:21 PM EDT Sexual Orientation Straight 02/09/2022 12 :21 PM EDT documented as of this encounter Last Filed Vital Signs Vital Sign Reading Time Taken Comments Blood Pressure 116/65 09/16/2016 8:05 AM EDT Pulse 74 09/16/2016 8:05 AM EDT Temperature 36.8 ??C (98.2 ??F) 09/16/2016 8:05 AM ED T Respiratory Rate 16 09/16/2016 8:05 AM EDT Oxygen Saturation 100% 09/16/2016 8:05 AM EDT Inhaled Oxygen Concentration - - Weight 51.9 kg (114 lb 6.4 oz) 09/16/2016 8:05 A M EDT Height 155.3 cm (5' 1.14) 09/16/2016 8:05 AM ED T Body Mass Index 21.52 09/16/2016 8:05 AM EDT documented in this encounter Progress Notes * Mary Anne Henry, RN - 09/16/2016 8:00 AM EDT Comprehensive Breast Program Note Trina Frances is a 36 y.o. female with right breast cancer. I met with patient and her , Rudi, in clinic. Trina is aware of time location for breast MRI 09/17, genetic counselor, and U/S of neck 09/22. Plastic surgery apt. 09/21 may be changed as Trina has requested Dr. Peres. Pending availability. Trina asked if port could be placed at time of surgery. Dr. Negro would prefer port placement be deferred until after surgical pathology is known. Trina verbalized understanding of the plan. SPECIFIC TEACHIN. Breast Cancer Treatment Handbook (Emilee Sherman, 2012) provided. 2. Information from our Shared Decision-Marking Program on Early-Stage Breast Cancer and Breast Reconstruction will be sent to her. She agreed to review breast reconstruction program before her plastic surgery apt. 3. She understands she will meet with a medical oncologist ([facility]) and (possibly) radiation oncologist ([facility]) after surgery. 4. Contact phone number for questions or concerns in the immediate post- operative period. 5. Comprehensive Breast Program Handbook. 6. Post Breast Surgery Exercises handout created by physical therapy at [facility] with caveat to begin exercises as per plastic surgeon direction. 7. Breast Cancer Treatment Process care map provided and reviewed. 8. Things to Consider...What I Wish I Knew advice from breast cancer patients handout provided. 9. Per Trina's questions, we discussed hair loss during chemotherapy and resources for wigs, scarfs, hats. She is interested in cold caps and was provided with contact information for Ines Valles ([employer]). Will forward her additional information via e-mail She verbalized understanding of the plan of care and states all her questions were answered. Twenty-five minutes was spent in education, care coordination, and providing support. Trina has our contact information. She is aware surgery will be scheduled after additional testing and plastic surgery consult. Pre-op MRI: yes, scheduled 09/17 Referral to familial counseling: Yes, scheduled * Ruby Negro MD - 09/16/2016 8:00 AM EDT Surgical Oncology New Visit Note Reason for Visit: Trina Frances is a 36 y.o. female referred by Radha Acuna MD for evaluation of right breast cancer. HPI:Trina Frances is a 36F with PMH signficant for IgA deficiency, vitiligo and multiple allergieswho first noticed tenderness in her right breast in July 2016 when her daughter leaned her head against her chest. She then noticed a lump that was somewhat tender. She denies any skin changes or nipple discharge. She has an evaluation by her elkin/records management technician Dr. Liban Humphrey on 08/1916 and he noted two lumps in her right breast. She underwent breast imaging which showed a large area of pleomorphic calcifications with two masses corresponding to palpable lumps. There was also one lymph node that was abnormal. She underwent biopsy of one breast mass and the lymph node. Fortunacorbin the lymph node was negative for cancer, but the breast pathology confirmed a ER+FL+ HER2 pending invasive ductal carcinoma and high grade DCIS. She is here today to discuss next steps in management. Trina does occasionally do self breast exams as well as her elkin/records management technician. Prior to breast biopsy, she denies any skin changes,or axillary lumps, no nipple discharge and no pain or masses in her left breast. The patient has normal regular periods. She does not take control pills. She had 2 children. She did breast feed (pumped for both children since they could not latch). She does not have a history of previous breast biopsy prior to this diagnosis. Negative family history of breast or ovariancancer. Overall she feels well. She does report increased fatigue over the past 3 weeks. Weight is stable and appetite is good. No headaches. No chest pain or SOB. No abd pain or blood in the stool. No new bony pain or tenderness. Has an active job and is active with her children. Active Ambulatory Problems Diagnosis Date Noted ??? IgA deficiency 01/16/2012 Resolved Ambulatory Problems Diagnosis Date Noted ??? No Resolved Ambulatory Problems Past Medical History: Diagnosis Date ??? Environmental allergies ??? IgA deficiency ??? Immune deficiency disorder ??? Multiple food allergies ??? Placenta previa ??? Vitiligo Past Surgical History: Procedure Laterality Date ??? APPENDECTOMY ??? SECTION ??? NASAL SINUS SURGERY ??? TONSILLECTOMY Current Outpatient Prescriptions: ??? multivitamin (THERAGRAN) Tablet, Take 1 tablet by mouth daily., Disp: , Rfl: ??? cetirizine (ZYRTEC) 10 mg tablet, , Disp: , Rfl: DRUG ALLERGIES: Allergies as of 09/16/2016 - Review Complete 09/16/2016 Allergen Reaction Noted ??? Aspirin ??? Hydrocodone-acetaminophen ??? Tioconazole SOCIAL HISTORY: Social History Social History ??? Marital status: Spouse name: N/A ??? Number of children: N/A ??? Years of education: N/A Occupational History ??? Not on file. Social History Main Topics ??? Smoking status: Never Smoker ??? Smokeless tobacco: Not on file ??? Alcohol use Not on file ??? Drug use: Not on file ??? Sexual activity: Not on file Other [...] 36 y.o. female in no apparent distress BP 116/65 (Patient Position: Sitting) Pulse 74 Temp 36.8 ??C (98.2 ??F) (Temporal) Resp 16 Ht 155.3 cm (5' 1.14) Wt 51.9 kg (114 lb 6.4 oz) LMP 08/24/2016 (Exact Date) SpO2 100% BMI 21.52 kg/m2 Body mass index is 21.52 kg/(m^2). Eyes: anicteric, extra ocular movements are intact Neuro: No focal deficits. Hearing and speech intact Psych: the patient is alert and oriented. Normal affect. Breast Exam: right breast with 2 palpable mass about 2-3cm each in at 12 oclock and a second at 5oclock without skin or nipple changes or axillary nodes left breast normal without mass, skin or nipple changes or axillary nodes. Heart: Regular rate and rhythm, S1 S2. No peripheral edema Lungs: Clear bilaterally with good air intake Nodes: No palpable lymph nodes in the groin. Palpable 2cm lymph node in the right posterior cervical neck, marked with marking pen. Abdomen: Soft, non-tender, non-distended. There are normal [...] The cortex is thickened to 0.3 cm. MRI: pending 2) Pathology 09/11/16 A - ??Needle biopsies: ??Right breast lesion 1 Diagnosis: ?Invasive ductal carcinoma, intermediate grade. ? Ductal carcinoma in-situ, high grade with comedo necrosis. Microcalcifications: ??Associated with DCIS. ER: ??Positive 11-90% FL : ??Positive 11-90% HER2 pending Needle biopsies: ??Right axillary node ultrasound biopsy Diagnosis: ?Benign node fragments. 4) Labs Recent Results (from the past 24 hour(s)) Comprehensive metabolic panel (non-fasting) Result Value Ref Range Glucose Lvl 94 65 - 199 mg/dL BUN 13 8 - 18 mg/dL Creatinine 0.75 0.70 - 1.20 mg/dL Sodium 141 135 - 145 mmol/L Potassium 3.6 3.5 - 5.0 mmol/L Chloride 101 98 - 107 mmol/L CO2 25 22 - 31 mmol/L Anion Gap 15 5 - 15 mmol/L Calcium 9.8 8.5 - 10.5 mg/dL Total Protein 7.9 6.1 - 8.0 gm/dL Albumin 4.9 3.2 - 5.2 gm/dL AST 22 0 - 30 unit/L ALT 13 0 - 30 unit/L Alk Phos 64 40 - 104 unit/L Total Bilirubin 0.5 0.2 - 1.3 mg/dL Bili, Direct 0.1 0.0 - 0.3 mg/dL Estimated GFR >60 >=60 Hemogram Result Value Ref Range WBC 6.2 4.0 - 9.5 x10(3)/mcL RBC 4.57 4.00 - 5.21 x10(6)/mcL Hemoglobin 14.0 11.7 - 15.5 gm/dL Hematocrit 40.5 35.7 - 45.8 % MCV 88.6 82.6 - 94.4 fL MCH 30.6 27.1 - 32.0 pg MCHC 34.6 31.7 - 35.0 gm/dL Platelets 218 145 - 357 x10(3)/mcL RDWSD 37.6 37.0 - 46.0 fL RDWCV 11.7 11.5 - 14.1 % MPV 10.3 7.6 - 12.9 fL nRBC % Auto 0.0 % nRBC Abs Auto 0.000 0.000 - 0.000 x10(3)/mcL Differential, Automated Result Value Ref Range Neutrophils % 61.9 % Neutr Abs (ANC) 3.87 1.70 - 6.10 x10(3)/mcL Lymphocytes % 28.5 % Lymphocytes Abs 1.8 0.9 - 3.2 x10(3)/mcL Monocytes % 7.5 % Monocyte Abs 0.5 0.3 - 0.9 x10(3)/mcL Eosinophils % 1.6 % Eosinophils Abs 0.1 0.0 - 0.4 x10(3)/mcL Basophils % 0.0 % Basophils Abs 0.0 0.0 - 0.1 x10(3)/mcL Immature Gran % 0.50 % Dalia Gran Abs 0.03 0.00 - 0.04 x10(3)/mcL Impression: Trina Frances is a 36 y.o. female with new diagnosis of right breast invasive ductal carcinoma And high grade DCIS, ER+FL+ HEr2 pending with a lesion spanning about 7.5cm with 2 dominantmasses, one biopsied. She also had a suspicious axillary node which was biopsied and found to be benign. We discussed the nature and natural history of breast cancer and the differences in regards tohormone receptors. Her HER2 results are still pending and this would likely change recommendations and may lead to the recommendation of neoadjuvant chemotherapy. We should get those results in the next few days. In additional, given the extent of disease and her age, I recommend breast MRI to further evaluate her breasts and also the possible chest wall involvement seen on mammogram. In regards to surgery, we discussed the standard treatment options of her cancer which include partial mastectomy with radiation versus mastectomy. DUe to the small size of her breasts she would need a mastectomy for acceptable cosmetic outcome. We also discussed the palpable node in her neck which I will arrange imaging and biopsy. We also discussed staging with sentinel lymph node biopsy. She will meet a medical oncologist to discuss neoadjuvant chemotherapy. In addition, give her age, she will be referred to genetics for consultation. If she has a BRCA mutation, we discussed the recommendation of prophylactic mastectomy on the contralateral side. The patient had multiple questions which were answered to their satisfaction. The patient would like to proceed with plan as follows: Plan: 1) Neck US and biopsy if abnormal LN identified 2) Consultation with medical oncologist, Dr Gallegos 3) Referral to genetics 4) Plastic surgery consultation 5) will decide on surgical planning based on above results and consultations Ruby Negro MD Surgical Oncology documented in this encounter Plan of Treatment Upcoming Encounters Date Type Department Care Team (Late st Contact Info) Description 06/30/2024 4:30 PM EDT Office Visit Hematology [place] [address] Shilpi Gallegos MD [facility] DR HEMATOLOGY [place] [address] Scheduled Referrals Name Type Priority Associated Diagnoses Orde r Schedule Referral to Familial Cancer Outpatient Referral Routine Malignant neoplasm of upper-inner quadrant of right female breast Ordered: 09/16/2016 documented as of this encounter Visit Diagnoses Diagnosis Malignant neoplasm of upper-inner quadrant of right female breast Malignant neoplasm of upper-inner quadrant of female breast documented in this encounter Care Teams Target Aircraft Controller Relationship Specialty Start Date End Date Radha Acuna MD [address] [place] [address] [place] [address] PCP - General 08/07/11 documented as of this encounter
--- OUTSIDE RECORDS SUMMARY | 2024-04-07 16:43 | XMS_ITS | Encounter Summary ---
[place] [address] Care Team Providers Care Crm Marketing Analyst Name Role Phone Radha Acuna MD Primary Care Provider +1- [phone] Encounter Details Date Type Department Care Team (Late st Contact Info) Description 09/18/2016 Telephone Hematology [place] [address] Mary Anne Henry RN Social [...] Encounter - Mary Anne Henry RN - 09/18/2016 3:23 PM EDT Comprehensive Breast Program (CBP) Note Trina Frances is a 36 y.o. female with newly diagnosed ER/[place]+/HER2 pending right breast IDC/DCIS (biopsies 09/11/2016 at [facility]). ?? Reason for call: patient called to request her breast MRI and HER2 marley results. Plan: Trina is aware the MRI included disease spanning 7 cm superior to inferior limited to the right breast upper inner quadrant (as expected) without evidence of chest wall invasion. No evidence of axillary adenopathy. The left breast favoring physiologic variation/fibrocystic change.?? She is aware the HER2 marley results are not yet available. She plans to see Dr. Zurita on 09/21 and would like to have the neck Ultrasound scheduled on 09/22 changed to 09/21 if possible. She has Sharmin's number and will call to inquire. Trina has our contact numbers. documented in this encounter Plan of Treatment Upcoming Encounters Date Type Department Care Team (Late st Contact Info) Description 06/30/2024 4:30 PM EDT Office Visit [place] [address] Shilpi Gallegos MD [facility] [address] [place] [address] documented as of this encounter Visit Diagnoses Not on filedocumented in this encounter Care Teams Crm Marketing Analyst Relationship Specialty Start Date End Date Radha Acuna MD [address] [place] [address] [place] [address] PCP - General 08/07/11 documented as of this encounter
[2024-04-07] MEDS: Normal Saline - Diluent 50 ML VIAL IJ (17:06)
[2024-04-07] MEDS: Omnipaque 350 MG/ML 100 ML BTL 75 ML IJ (17:18)
--- NOTE | 2024-04-07 17:19 | DI.CT_ITS ---
Exam(s) CT ABDOMEN PELVIS W EXAM: CT ABDOMEN PELVIS W CLINICAL HISTORY: abd pain, fever TECHNIQUE: Imaging Protocol: Axial computed tomography images with coronal and sagittal reformatted images were created and reviewed. CONTRAST MATERIAL: Intravenous: Omnipaque 350 Contrast volume:75 mL Oral: No COMPARISON: No exams were available for comparison FINDINGS: ABDOMEN: Lung Bases: There is a left lower lobe infiltrate suspicious for pneumonia. Liver: Normal density. No measurable mass. Portal, Superior Mesenteric, and Splenic Veins: Unremarkable. Gallbladder and Biliary Tract: No radiodense calculus or dilation. Pancreas: Normal density, no abnormal calcifications or inflammatory process. Spleen: Normal. Adrenals: No masses seen. Kidneys: Normal size, contour and axis. No radiodense stones or obstructive uropathy. No masses seen. Abdominal Aorta: Abdominal portion non-dilated. Bowel: No obstruction or bowel wall thickening. There are surgical clips in the region of the cecum w hich may reflect prior appendectomy. There is no evidence of appendicitis. The stomach is incomplet randa distended limiting evaluation. Peritoneal Cavity: No ascites, collection or mesenteric inflammatory response. No free air. Lymph Nodes: Within normal limits. Bones: Within normal limits for the patient's age. Soft Tissues: There is a small fat containing umbilical hernia. PELVIS: Bladder: There is a 2 mm calcification which appears to lie outside of the urinary bladder. No bladd er stones are seen. The urinary bladder is incompletely distended limiting evaluation. No gross abn ormality seen. Reproductive Organs: There are bilateral ovarian cysts. The appear simple. The largest cysts are se en on the left ovary. There is a 3.5 x 4.1 cm left ovarian cyst posteriorly. (Series 10, image 137) . There is a 2.8 x 2.9 cm simple cyst in the anterior aspect of the left ovary (series 10, image 133 ). On the right ovary there is a 2.3 x 3.2 cm cyst (series 10, image 144). There is a trace amount of free fluid in the pelvis. These findings are likely physiologic. Lymph Nodes: Within normal limits. Bones: Within normal limits for the patient's age. IMPRESSION: 1. Left lower lobe infiltrate suspicious for pneumonia. 2. Bilateral ovarian cysts and Estrace amount of free fluid in the pelvis which is likely physiologic . The largest cyst is on the left ovary measures 3.5 x 4.1 cm. 3. No abdominal or pelvic process. RADIATION DOSE DELIVERED: 268.56mGy.cm Total DLP DATA REPOSITORY: All CT scans at this facility are submitted to the National Radiology Data Registry (NRDR) Dose Index Registry (DIR) with the [employer] ([employer]). RADIATION OPTIMIZATION: All CT scans at this facility use at least one of these dose optimization te chniques: automated exposure control; mA and/or kV adjustment per patient size (includes targeted exa ms where dose is matched to clinical indication); or iterative reconstruction.
[2024-04-07] MEDS: MORPHine 4 MG/ML SYR IVP ×2 (18:03→19:38)
[2024-04-07] MEDS: Ondansetron 4 MG/2 ML VIAL IVP (18:04)
[2024-04-07] MEDS: Normal Saline 1,000 ML 1000 ML IV (18:09)
[2024-04-07] MEDS: cefTRIAXone 1 GM VIAL IM (19:06)
[2024-04-07] MEDS: Acetaminophen 500 MG TAB 1000 MG PO (19:39)
[2024-04-07] MEDS: Lidocaine 1% Pres-Free 5 ML VIAL (19:39)
== END 2024-04-07 19:52 | disposition home or self-care (01) ==
PROVIDERS: Emergency Provider Emergency Medicine; PCP Internal Medicine
DX: J18.9 Pneumonia, unspecified organism (principal); R10.30 Lower abdominal pain, unspecified; R11.0 Nausea; N83.201 Unspecified ovarian cyst, right side; N83.202 Unspecified ovarian cyst, left side; Z85.3 Personal history of malignant neoplasm of breast
CPT/HCPCS: 80053; 87040; 87637; 96361; 96372; 96374; 96375; 96376; 99285; 74177; 81003; 81015; 83605; 84703; 85025; 99284; J0696; J2003; J2270; J2405; J3490